=== PATIENT | male | born 1950 | race African-American/Black ===

== ENCOUNTER 2017-10-11 23:59 | Emergency (ER) | payer MEDICARE, OTHER ==
[2017-10-12 01:21] VITALS: BP 131/88; PULSE 76; TEMP 97.9; BMI 21.3
--- NOTE | 2017-10-12 01:30 | PDOC ---
History of Present Illness - General History Source: Patient Exam Limitations: No Limitations - History of Present Illness Initial Comments: 10/12/17 01:49 The patient is a 67 year old male with a significant PMH of HTN and hyperlipidemia who presents to the emergency department with generalized malaise , a dry cough, and nasal congestion beginning approximately 2 weeks ago. The patients daughter also reports that the patient has had a decreased appetite and intermittent vomiting over the past week, but notes he has been drinking plenty of fluids. The patient reports compliance with his medications. He denies sick contacts or recent travel. The patient denies chest pain, shortness of breath, headache, and dizziness. Denies fevers, chills, diarrhea, and constipation. Denies dysuria, frequency, urgency and hematuria. Allergies: NKA Past surgical history: None reported. Social history: No reported cigarette, alcohol, or drug use. PCP: Not on Staff. <Damion Best - Last Filed: 10/12/17 02:13> - General History Source: Patient <Sylvester Monte - Last Filed: 10/12/17 04:30> - General Chief Complaint: Nausea/Vomiting Stated Complaint: VOMITING, COUGHING,WEAKNESS Time Seen by Provider: 10/12/17 01:29 Past History <Damion Best - Last Filed: 10/12/17 02:13> - Past Medical History HTN: Yes Hypercholesterolemia: Yes - Surgical History Cardiac Surgery: Yes - Immunization History Immunization Up to Date: No - Suicide/Smoking/Psychosocial Hx Smoking History: Never smoked Have you smoked in the past 12 months: No Number of Cigarettes Smoked Daily: 5 Information on smoking cessation initiated: No Hx Alcohol Use: No Drug/Substance Use Hx: No Substance Use Type: Alcohol <Sylvester Monte - Last Filed: 10/12/17 04:30> - Past Medical History Allergies/Adverse Reactions: Allergies Allergy/AdvReac Type Severity Reaction Status Date / Time No Known Allergies Allergy Verified 10/12/17 01:21 Home Medications: Ambulatory Orders Aspirin Coated [Ecotrin -] 81 mg PO DAILY 11/14/13 Furosemide [Lasix -] 40 mg PO DAILY 11/14/13 Allopurinol [Zyloprim -] 100 mg PO DAILY 06/17/14 Carvedilol [Coreg -] 6.25 mg PO BID 06/17/14 Simvastatin [Zocor] 10 mg PO HS 06/17/14 Cyclobenzaprine HCl [Flexeril] 5 mg PO TID PRN #15 tablet 11/14/15 Naproxen [Naprosyn -] 500 mg PO BID PRN #21 tablet 11/14/15 Azithromycin [Zithromax -] 250 mg PO UTDICT #6 tab 10/12/17 Review of Systems - Review of Systems Able to Perform ROS?: Yes Comments:: 10/12/17 01:49 CONSTITUTIONAL: (+) Generalized malaise. Absent: fever, chills, diaphoresis, generalized weakness, loss of appetite HEENT: (+) Nasal congestion. Absent: throat pain, throat swelling, difficulty swallowing, mouth swelling, ear pain, eye pain, visual Changes CARDIOVASCULAR: Absent: chest pain, syncope, palpitations, irregular heart rate, lightheadedness , peripheral edema RESPIRATORY: (+) Dry cough. Absent: shortness of breath, dyspnea with exertion, orthopnea, wheezing, stridor , hemoptysis GASTROINTESTINAL: (+) Intermittent vomiting. Absent: abdominal pain, abdominal distension, diarrhea, constipation, melena, hematochezia GENITOURINARY: Absent: dysuria, frequency, urgency, hesitancy, hematuria, flank pain, genital pain MUSCULOSKELETAL: Absent: myalgia, arthralgia, joint swelling SKIN: Absent: rash, itching, pallor HEMATOLOGIC/IMMUNOLOGIC: Absent: easy bleeding, easy bruising, lymphadenopathy, frequent infections ENDOCRINE: Absent: unexplained weight gain, unexplained weight loss, heat intolerance, cold intolerance NEUROLOGIC: Absent: headache, focal weakness or paresthesias, dizziness, unsteady gait, seizure, mental status changes, bladder or bowel incontinence PSYCHIATRIC: Absent: anxiety, depression, suicidal or homicidal ideation, hallucinations. <Damion Best - Last Filed: 10/12/17 02:13> *Physical Exam - Vital Signs Last Vital Signs Temp Pulse Resp BP Pulse Ox 97.9 F 76 18 131/88 99 10/12/17 01:13 10/12/17 01:13 10/12/17 01:13 10/12/17 01:13 10/12/17 01:13 - Physical Exam Comments: 10/12/17 01:49 GENERAL: Well developed, well nourished. Awake and alert. No acute distress. HEENT: (+) Very dry oral mucosa. Normocephalic, atraumatic. PERRLA, EOMI. No conjunctival pallor. Sclera are non- icteric. Moist mucous membranes. Oropharynx is clear. NECK: Supple. Full ROM. No JVD. Carotid pulses 2+ and symmetric, without bruits. No thyromegaly. No lymphadenopathy. CARDIOVASCULAR: Regular rate and rhythm. No murmurs, rubs, or gallops. Distal pulses are 2+ and symmetric. PULMONARY: No evidence of respiratory distress. Lungs clear to auscultation bilaterally. No wheezing, rales or rhonchi. ABDOMINAL: Soft. Non-tender. Non-distended. No rebound or guarding. No organomegaly. Normoactive bowel sounds. MUSCULOSKELETAL Normal range of motion at all joints. No bony deformities or tenderness. No CVA tenderness. EXTREMITIES: No cyanosis. No clubbing. No edema. No calf tenderness. SKIN: Warm and dry. Normal capillary refill. No rashes. No jaundice. NEUROLOGICAL: Alert, awake, appropriate. Cranial nerves 2-12 intact. No deficits to light touch and temperature in face, upper extremities and lower extremities. No motor deficits in the in face, upper extremities and lower extremities. Normoreflexic in the upper and lower extremities. Normal speech. Toes are downgoing bilaterally. Gait is normal without ataxia. PSYCHIATRIC: Cooperative. Good eye contact. Appropriate mood and affect. <Damion Best - Last Filed: 10/12/17 02:13> - Vital Signs Last Vital Signs Temp Pulse Resp BP Pulse Ox 97.9 F 76 18 131/88 99 10/12/17 01:13 10/12/17 01:13 10/12/17 01:13 10/12/17 01:13 10/12/17 01:13 <Sylvester Monte - Last Filed: 10/12/17 04:30> Heart Score/ECG Review #1 10/12/17 02:14 Vent rate 73 bpm Normal sinus rhythm. Left axis deviation Low voltage QRS ST & T wave abnormality, consider anterolateral ischemia Prolonged QT Abnormal ECG When compared to ECG from 21-AUG-2017 14:33, New T wave inversions in the lateral leads. <Damion Best - Last Filed: 10/12/17 02:13> ED Treatment Course - LABORATORY CBC & Chemistry Diagram: 10/12/17 02:50 10/12/17 02:56 <Sylvester Monte - Last Filed: 10/12/17 04:30> Medical Decision Making - Medical Decision Making 10/12/17 04:29 Dr. Monte: The scribe's documentation has been prepared under my direction and personally reviewed by me in its entirery. I confirm that the note above accurately reflects all work, treatment, procedures, and medical decision making performed by me. <Sylvester Monte - Last Filed: 10/12/17 04:30> *DC/Admit/Observation/Transfer - Attestations Scribe Attestion: 10/12/17 01:49 Documentation prepared by Damion Best, acting as medical staffing coordinator for Sylvester Monte DO. <Damion Best - Last Filed: 10/12/17 02:13> - Discharge Dispostion Admit: No <Sylvester Monte - Last Filed: 10/12/17 04:30> Diagnosis at time of Disposition: Bronchitis - Discharge Dispostion Disposition: HOME Condition at time of disposition: Stable - Prescriptions Prescriptions: Azithromycin [Zithromax -] 250 mg PO UTDICT #6 tab - Referrals Referrals: Brandan Arreguin MD [Staff Physician] - - Patient Instructions Printed Discharge Instructions: DI for Acute Bronchitis Additional Instructions: Please follow up with your doctor as soon as possible. Avoid smoking as much as possible. Return if any problems - Post Discharge Activity Forms/Work/School Notes: Back to Work
[2017-10-12] MEDS ORDERED: SODIUM CHLORIDE 1,000 ML IV STA (01:40)
[2017-10-12 03:02] LABS: BASO % 0.3 % (0-2.0); EOS % 0.6 % (0-4.5); HEMOGLOBIN 14.3 GM/dL (11.7-16.9); LYMPH % 35.2 % (8-40); MCH 31.5 pg (25.7-33.7); MCHC 33.2 g/dl (32.0-35.9); MEAN CELL VOLUME 94.7 fl (80-96); MEAN PLT VOLUME 9.5 fl (7.5-11.1); MONO % 10.5 % (3.8-10.2); NEUT % 53.4 % (42.8-82.8); PLATELET COUNT 126 K/MM3 (134-434); RBC 4.54 M/mm3 (4.00-5.60); RDW 13.6 % (11.9-15.9); WHITE BLOOD COUNT 4.1 K/mm3 (4.0-10.0)
[2017-10-12 03:18] LABS: INR 0.95 (0.82-1.09); PROTHROMBIN TIME (PATIENT) 10.7 SEC (9.98-11.88)
[2017-10-12 03:26] LABS: ALBUMIN 3.7 g/dl (3.4-5.0); ANION GAP 10 (8-16); BLOOD UREA NITROGEN 14 mg/dL (7-18); CALCIUM 8.5 mg/dL (8.5-10.1); CHLORIDE 99 mmol/L (98-107); CO2 33 mmol/L (21-32); CREATININE 0.9 mg/dL (0.7-1.3); GLUCOSE,RANDOM 86 mg/dL (74-106); MAGNESIUM 1.4 mg/dL (1.8-2.4); POTASSIUM 3.7 mmol/L (3.5-5.1); SGOT/AST 309 U/L (15-37); SGPT/ALT 263 U/L (12-78); SODIUM 142 mmol/L (136-145)
[2017-10-12 03:28] LABS: ALK PHOS 110 U/L (45-117); BILIRUBIN,TOTAL 0.9 mg/dL (0.2-1.0); TOT PROT 7.2 g/dl (6.4-8.2)
[2017-10-12 03:29] LABS: LIPASE 202 U/L (73-393)
[2017-10-12] MEDS ORDERED: AZITHROMYCIN 250 MG TABLET PO STA (04:26)
[2017-10-12] MEDS ORDERED: AZITHROMYCIN 250 MG TABLET ONE (04:30)
--- NOTE | 2017-10-12 07:56 | EKG ---
Test Reason : Blood Pressure : / mmHG Vent. Rate : 073 BPM Atrial Rate : 073 BPM P-R Int : 158 ms QRS Dur : 086 ms QT Int : 424 ms P-R-T Axes : 000 -37 129 degrees QTc Int : 467 ms NORMAL SINUS RHYTHM LEFT AXIS DEVIATION LOW VOLTAGE QRS PROLONGED QT ABNORMAL ECG WHEN COMPARED WITH ECG OF 17-JUN-2014 22:27, ST NOW DEPRESSED IN ANTERIOR LEADS NONSPECIFIC T WAVE ABNORMALITY NO LONGER EVIDENT IN INFERIOR LEADS T WAVE INVERSION NOW EVIDENT IN ANTERIOR LEADS Confirmed by RUPERT LOPES, RASHAD ([id number]) on 10/12/2017 7:56:24 AM Referred By: Confirmed By:RASHAD EMERY MD
== END 2017-10-12 04:45 | disposition home or self-care (01) ==
LOC: JER 23:59
PROC: 3E0337Z Introduction of Electrolytic and Water Balance Substance into Peripheral Vein, Percutaneous Approach (ICD-10-PCS; principal; 2017-10-11)
DX: J20.9 Acute bronchitis, unspecified (principal); I10 Essential (primary) hypertension; E78.00 Pure hypercholesterolemia, unspecified
CPT/HCPCS: 36415; 71046-TC; 80053; 82009; 82550; 82553; 83690; 83735; 84484; 85025; 85610; 87804; 93005; 93010; 96360; 99283-25

== ENCOUNTER 2017-10-13 18:42 | Inpatient (IN) | payer OTHER ==
--- NOTE | 2017-10-13 19:45 | PDOC ---
Rapid Medical Evaluation Chief Complaint: Weakness Time Seen by Provider: 10/13/17 19:36 Medical Evaluation: Allergies Allergy/AdvReac Type Severity Reaction Status Date / Time No Known Allergies Allergy Verified 10/13/17 19:36 10/13/17 19:40 67 year old male c/o of weakness, diffculty walking, vomiting and diarrhea since discharge as per daughter. patient unsteady of gait/ pateint seen in the ED yesterdat diagnosed with bronchitis currently on azithromycin. + chills/ diaphoresis. PE: patient alert breath sounds clear/ Plan: cbc, cmp, cardiac enzymes, blood cultures, lactic acid, EKG, patient to the ER for the further management of care.
[2017-10-13 20:27] LABS: BASO % 0.3 % (0-2.0); HEMATOCRIT 43.4 % (35.4-49); HEMOGLOBIN 14.5 GM/dL (11.7-16.9); LYMPH % 19.2 % (8-40); MCH 31.6 pg (25.7-33.7); MCHC 33.5 g/dl (32.0-35.9); MEAN CELL VOLUME 94.3 fl (80-96); MEAN PLT VOLUME 9.7 fl (7.5-11.1); MONO % 7.2 % (3.8-10.2); NEUT % 73.3 % (42.8-82.8); PLATELET COUNT 145 K/MM3 (134-434); RDW 13.6 % (11.9-15.9); WHITE BLOOD COUNT 5.2 K/mm3 (4.0-10.0)
[2017-10-13 20:33] LABS: VENOUS PC02 40.5 mmHg (38-52); VENOUS PH 7.41 (7.32-7.42); VENOUS PO2 39.3 mmHg (28-48)
[2017-10-13 20:41] LABS: INR 0.99 (0.82-1.09); PROTHROMBIN TIME (PATIENT) 11.2 SEC (9.98-11.88)
[2017-10-13 20:44] LABS: ACTIVATED PTT 33.3 SECONDS (26.9-34.4)
[2017-10-13] MEDS ORDERED: SODIUM CHLORIDE 1,000 ML IV STA (20:45)
--- NOTE | 2017-10-13 20:48 | PDOC ---
History of Present Illness - General Chief Complaint: Weakness Stated Complaint: WEAKNESS Time Seen by Provider: 10/13/17 19:36 - History of Present Illness Initial Comments: 10/13/17 20:43 67 yo M with h/o CAD s/p CABG, CHF, HTN, HLD, who presents with generalized weakness. Patient and pt. 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 Patient recently seen in ED yesterday evening, for weakness and diagnosed with COPD exacerbation. ED course was notable for EKG with anterolateral T wave inversion. 6 episodes of non biliary, non bloody emesis and 3 episodes of watery stool today attributed to azithromycin use. Denies BPR or dark stools Also endorses chills and decreased appetite, despite normal PO fluid and food intake. Daughter reports that pt. 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 Denies fever, CP, back pain , SOB, Guerra, Abdominal pain, diarrhea, constipation, urinary complaints, sensory disturbances, lightheadedness, LOC. Recently recovered from URI type illness x 2 weeks. Tobacco use for past 50 years 1/2 ppd. Daily alcohol/gin use.last alcoholic beverage yesterday evening. Denies h/o CVA/TIA, or WI. H/o valve replacement. Lasix 40 mg QD, and ASA 81 mg QD. No sick contacts or recent travels. Past History - Past Medical History Allergies/Adverse Reactions: Allergies Allergy/AdvReac Type Severity Reaction Status Date / Time No Known Allergies Allergy Verified 10/13/17 19:36 Home Medications: Ambulatory Orders Aspirin Coated [Ecotrin -] 81 mg PO DAILY 11/14/13 Furosemide [Lasix -] 40 mg PO DAILY 11/14/13 Allopurinol [Zyloprim -] 100 mg PO DAILY 06/17/14 Carvedilol [Coreg -] 6.25 mg PO BID 06/17/14 Simvastatin [Zocor] 10 mg PO HS 06/17/14 Cyclobenzaprine HCl [Flexeril] 5 mg PO TID PRN #15 tablet 11/14/15 Naproxen [Naprosyn -] 500 mg PO BID PRN #21 tablet 11/14/15 Azithromycin [Zithromax -] 250 mg PO UTDICT #6 tab 10/12/17 COPD: No HTN: Yes Hypercholesterolemia: Yes - Surgical History Cardiac Surgery: Yes - Immunization History Immunization Up to Date: No - Suicide/Smoking/Psychosocial Hx Smoking History: Never smoked Have you smoked in the past 12 months: No Number of Cigarettes Smoked Daily: 10 Information on smoking cessation initiated: Yes Hx Alcohol Use: No Drug/Substance Use Hx: No Substance Use Type: Alcohol Review of Systems - Review of Systems Comments:: 10/13/17 20:49 GENERAL/CONSTITUTIONAL:+ Weakness. No fever or chills. HEAD, EYES, EARS, NOSE AND THROAT: No change in vision. No ear pain or discharge. No sore throat.- CARDIOVASCULAR: No chest pain or shortness of breath RESPIRATORY: No cough, wheezing, or hemoptysis. GASTROINTESTINAL: No nausea, vomiting, diarrhea or constipation. GENITOURINARY: No dysuria, frequency, or change in urination. MUSCULOSKELETAL: No joint or muscle swelling or pain. No neck or back pain. SKIN: No rash NEUROLOGIC: No headache, vertigo, loss of consciousness, or change in strength/ sensation. ENDOCRINE: No increased thirst. No abnormal weight change HEMATOLOGIC/LYMPHATIC: No anemia, easy bleeding, or history of blood clots. ALLERGIC/IMMUNOLOGIC: No hives or skin allergy. *Physical Exam - Vital Signs Last Vital Signs Temp Pulse Resp BP Pulse Ox 98.3 F 69 18 130/73 100 10/13/17 19:38 10/13/17 19:38 10/13/17 19:38 10/13/17 19:38 10/13/17 19:38 - Physical Exam Comments: 10/13/17 20:48 GENERAL: Awake, alert, and fully oriented, in no acute distress HEAD: No signs of trauma, normocephalic, atraumatic EYES: Proptosis and scleral icterus. PERRLA, EOMI, sclera anicteric, conjunctiva clear ENT: Auricles normal inspection, hearing grossly normal, nares patent, oropharynx clear without exudates. Moist mucosa NECK: Normal ROM, supple, no lymphadenopathy, JVD, or masses LUNGS: No distress, speaks full sentences, clear to auscultation bilaterally HEART: Regular rate and rhythm, normal S1 and S2, no murmurs, rubs or gallops, peripheral pulses normal and equal bilaterally. ABDOMEN: Soft, nontender, normoactive bowel sounds. No guarding, no rebound. No masses EXTREMITIES : Normal inspection, Normal range of motion, no edema. No clubbing or cyanosis. NEUROLOGICAL: Baseline extremity tremor improved with movement. Gait is unstseady and slightly ataxic with transfer. Cranial nerves II through XII grossly intact. Normal speech, normal gait, no focal sensorimotor deficits S Heart Score/ECG Review - History History: Moderately suspicious - Electrocardiogram EKG: Non specific repolarization disturbance - Age Age: >/= 65 - Risk Factors Risk Factors Heart Score: Yes Hx Hypercholesterolemia, Yes Hx Hypertension, Yes Smoking History, Yes Positive family hx of cardiac disease Based on the list above the patient has:: >/=3 risk factors or Hx atherosclerotic disease - Troponin Troponin: </= normal limit - Score Heart Score - Total: 6 - ECG Intrepretation Rhythm: Regular Rhythm ED Treatment Course - LABORATORY CBC & Chemistry Diagram: 10/13/17 20:09 10/13/17 20:09 - ADDITIONAL ORDERS Additional order review: Laboratory Results 10/13/17 20:26 VBG pH 7.41 POC VBG pCO2 40.5 POC VBG pO2 39.3 Mixed VBG HCO3 25.0 10/13/17 20:09 RBC 4.60 MCV 94.3 MCHC 33.5 RDW 13.6 MPV 9.7 Neutrophils % 73.3 D Lymphocytes % 19.2 D Monocytes % 7.2 Eosinophils % 0.0 D Basophils % 0.3 Medical Decision Making - Medical Decision Making 10/13/17 21:14 67 yo M with h/o COPD ( no home O2), CAD s/p CABG, CHF, HTN, HLD, and chronic alcoholism who presents with generalized weakness x 1 week with decreased ambulation and 24 hours non biliary, non bloody emesis and non bloody, watery stools. Patient recently seen in ED yesterday evening, for weakness and diagnosed with COPD exacerbation. Sent out with azithromycin. Endorses chills and decreased appetite. Denies fever, CP, back pain, SOB, Guerra, Abdominal pain, diarrhea, constipation, urinary complaints, sensory disturbances, lightheadedness, LOC. Recently recovered from URI type illness x 2 weeks. Tobacco use for past 50 years 1/2 ppd. Daily alcohol/gin use. Last alcoholic beverage yesterday evening. Denies h/o CVA/TIA, or WI. H/o valve replacement. No sick contacts or recent travels. Physical exam notable for baseline tremor improved with movement. + scleral icterus. Remainder of physical exam unremarkable. Pt. non hypoxic and HDS. Will evaluate pt. in ED for possible causes of weakness including ACS/WI, CHF exaccerbation electrolyte derangement, hypothyroidism, dehydration, or underlying infection ( UTI vs PNA). Low suspicion of CVA/TIA given low pretest probabilty NIHSS score of 0 and absent neuro deficits. Will consider posterior circulation occlusion given age and risk factors. Will also consider acute alcohol withdrawal in setting of chronic EtOH use. ED Course: CBC, CMP, BNP, Cardiac profile, UA, TSH CXR NS, Zofran EKG: NSR with TWI leads V2-V6. Absent ALESSANDRA, or STD. Prolonged QTc 526 Trop Neg Heart score 5 with 13 % risk MACE 10/13/17 21:49 Lactic acid : 3.1 10/13/17 22:42 CXR: No acute pathology. 10/13/17 23:50 UA: trace ketones. 10/14/17 00:54 CT Head unremarkable. 10/14/17 01:00 BNP: 2717 10/14/17 01:00 10/14/17 04:12 CT AP: Distal colon suspicious for colitis. Flagyl, Levaquin 10/14/17 04:26 Lactic acid 2.1 10/14/17 05:34 Patient admitted med/surg obs *DC/Admit/Observation/Transfer Diagnosis at time of Disposition: Generalized weakness - Discharge Dispostion Disposition: HOME - Referrals Referrals: Roge Cutler [Primary Care Provider] - - Patient Instructions Printed Discharge Instructions: DI for Muscle Weakness Additional Instructions: Please return to the emergency department with any new or worsening symptoms or concerns.Please follow up with your primary care physician within one week. - Post Discharge Activity - Attestations Physician Attestion: 10/14/17 00:55 I attest to the information provided in this note.
--- NOTE | 2017-10-13 20:58 | PDOC ---
Attending Attestation - HPI HPI: 10/13/17 21:05 The patient is a 67 year old male with a significant PMH of CAD s/p CABG, CHF, HTN, and hyperlipidemia who presents to the emergency department with 1 week of generalized weakness and 1 day of multiple episodes of vomiting and watery stool. The patients daughter notes that the patient has been unable to ambulate over the past week secondary to weakness. The patient was seen in the ED on 10/12 for evaluation of generalized malaise and dry cough and was diagnosed with a COPD exacerbation. Allergies: NKA PCP: Dr. Cutler <Damion Best - Last Filed: 10/13/17 21:05> - Resident Resident Name: Silverio Marrero - ED Attending Attestation I have performed the following: I have examined & evaluated the patient, The case was reviewed & discussed with the resident, I agree w/resident's findings & plan, Exceptions are as noted - Physicial Exam PE: 10/13/17 21:04 Physical Exam General Appearance: Yes: Appropriately Dressed. No: Apparent Distress, Intoxicated HEENT: positive: EOMI, RUTHIE, Normal ENT Inspection, Normal Voice, TMs Normal, Pharynx Normal. negative: Pale Conjunctivae, Photophobia, Scleral Icterus (R), Scleral Icterus (L) Neck: positive: Trachea midline, Normal Thyroid, Supple. negative: Tender, Rigid, Carotid bruit, Stridor, Lymphadenopathy (R), Lymphadenopathy (L), Thyromegaly Respiratory/Chest: positive: Lungs Clear, Normal Breath Sounds. negative: Chest Tender, Respiratory Distress, Accessory Muscle Use, Labored Respiration, RES, Crackles, Rales, Rhonchi, Stridor, Wheezing, Dullness Cardiovascular: positive: Regular Rhythm, Regular Rate, S1, S2. negative: Edema , JVD, Murmur, Bradycardia, Tachycardia Vascular Pulses: Dorsalis-Pedis (R): 2+, Doralis-Pedis (L): 2+ Gastrointestinal/Abdominal: positive: Normal Bowel Sounds, Flat, Soft. negative : Tender, Organomegaly, Pulsatile Mass, Increased Bowel Sounds, Decreased BS, Distended, Guarding, Rebound, Hernia, Hepatomegaly, Spleenomegaly Lymphatic: negative: Adenopathy, Tenderness Musculoskeletal: positive: Normal Inspection. negative: CVA Tenderness, Decreased Range of Motion Extremity: positive: Normal Capillary Refill, Normal Inspection, Normal Range of Motion, Pelvis Stable. negative: Tender, Pedal Edema, Swelling, Erythema Integumentary: positive: Normal Color, Dry, Warm. 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 negative: EOM Palsy, Facial Droop, Sensory Deficit - Medical Decision Making 10/14/17 04:09 Pt will be admitted to [facility] for colitis. Pt also has elevation of his BNP 2700's, however denies any SOB or chest pain at this time. <Sylvester Monte - Last Filed: 10/14/17 04:11>
[2017-10-13] MEDS ORDERED: chlordiazePOXIDE HCL 25 MG CAPSULE PO ONE (21:10)
[2017-10-13 21:21] LABS: ALBUMIN 4.1 g/dl (3.4-5.0); ANION GAP 13 (8-16); BLOOD UREA NITROGEN 10 mg/dL (7-18); CALCIUM 8.4 mg/dL (8.5-10.1); CHLORIDE 94 mmol/L (98-107); CO2 27 mmol/L (21-32); GLUCOSE,RANDOM 102 mg/dL (74-106); SGOT/AST 272 U/L (15-37); SGPT/ALT 219 U/L (12-78); SODIUM 134 mmol/L (136-145)
[2017-10-13 21:25] LABS: ALK PHOS 152 U/L (45-117); BILIRUBIN,TOTAL 2.4 mg/dL (0.2-1.0); TOT PROT 7.7 g/dl (6.4-8.2)
[2017-10-13] MEDS ORDERED: ONDANSETRON 4 MG/2 ML VIAL IVPB ONE (22:44)
[2017-10-13 22:47] LABS: URINE APPEARANCE CLEAR; URINE BILIRUBIN NEGATIVE (NEGATIVE); URINE COLOR LTYELLOW; URINE GLUCOSE (UA) NEGATIVE (NEGATIVE); URINE KETONE TRACE (NEGATIVE); URINE LEUK ESTERASE NEGATIVE (NEGATIVE); URINE NITRITE NEGATIVE (NEGATIVE)
[2017-10-13 23:03] LABS: URINE PROTEIN 1+ (NEGATIVE)
[2017-10-13 23:04] LABS: EPI CELLS RARE /HPF (FEW); URINE BACTERIA RARE /hpf (NONE SEEN); URINE HYALINE CAST 2 /lpf; URINE MUCUS RARE
[2017-10-13] MEDS ORDERED: chlordiazePOXIDE HCL 25 MG CAPSULE ONE (23:07)
[2017-10-13] MEDS ORDERED: ONDANSETRON 4 MG/2 ML VIAL ONE (23:08)
[2017-10-13 23:33] LABS: N-TERMINAL BNP 2717.94 pg/ml (5-125)
[2017-10-14] MEDS ORDERED: METOCLOPRAMIDE HCL INJECTION 10 MG/2 ML VIAL ONE (01:10)
[2017-10-14] MEDS ORDERED: METOCLOPRAMIDE HCL INJECTION 10 MG/2 ML VIAL IVPUSH ONE (01:10)
[2017-10-14] MEDS ORDERED: SODIUM CHLORIDE 1,000 ML IV STA (01:20)
--- NOTE | 2017-10-14 06:58 | HP ---
CHIEF COMPLAINT: generalized weakness, emesis, diarrhea PCP: Dr. Roge Cutler HISTORY OF PRESENT ILLNESS: 67 y/o M with PMH CAD s/p CABG, CHF, HTN, HLD, recent admission 10/12 for COPD exacerbation, Bronchitis (tx with Azithromycin) who presents to the ED with generalized weakness, and multiple episodes of emesis and loose BM's for the past day. As per patient, yesterday morning, pt felt very weak; as if he could not walk. During this time, he had ten episodes of NBNB emesis and 4-5 episodes of loose BM's without blood. Pt states that he took Azithromycin at 9AM yesterday morning, and subsequently developed emesis at 2pm and diarrhea at 3pm. Pt states that he has never been told he is allergic to any abx. Denies MARQUEZ , fever, chills, night sweats, weight loss, or any changes in appetite. ER course was notable for: (1) lactic acid 3.2, trended down to 2.1 (2) Librium 25mg PO x 1 (3) Flagyl and levaquin (4) metoclopramide 10mg IVP (5) zofran 4mg IVPB x 1 (6) NS 1000 ml x 2 Recent Travel: none PAST MEDICAL HISTORY: CAD s/p CABG, CHF, HTN, HLD, recent admission 10/12 for COPD exacerbation, Bronchitis (tx with Azithromycin) PAST SURGICAL HISTORY: CABG (2002) Social History: has worked for [employer]" for 43 yrs Smokin-10 cigarettes/day ~ 40 yrs Alcohol: drinks 2.5 shots of liquor every day after work Drugs: denies Family History: father- passed from stroke, mother- passed from ID Allergies No Known Allergies Allergy (Verified 10/13/17 19:36) HOME MEDICATIONS: Home Medications Medication Instructions Recorded Aspirin Coated [Ecotrin -] 81 mg PO DAILY 11/14/13 Furosemide [Lasix -] 40 mg PO DAILY 11/14/13 Allopurinol [Zyloprim -] 100 mg PO DAILY 06/17/14 Carvedilol [Coreg -] 6.25 mg PO BID 06/17/14 Simvastatin [Zocor] 10 mg PO HS 06/17/14 Cyclobenzaprine HCl [Flexeril] 5 mg PO TID PRN #15 tablet 11/14/15 Naproxen [Naprosyn -] 500 mg PO BID PRN #21 tablet 11/14/15 Azithromycin [Zithromax -] 250 mg PO UTDICT #6 tab 10/12/17 REVIEW OF SYSTEMS CONSTITUTIONAL: Absent: fever, chills, diaphoresis, generalized weakness, malaise, loss of appetite, weight change HEENT: Absent: rhinorrhea, nasal congestion, throat pain, throat swelling, difficulty swallowing, mouth swelling, ear pain, eye pain, visual changes CARDIOVASCULAR: Absent: chest pain, syncope, palpitations, irregular heart rate, lightheadedness , peripheral edema RESPIRATORY: Absent: cough, shortness of breath, dyspnea with exertion, orthopnea, wheezing, stridor, hemoptysis GASTROINTESTINAL:+nausea, vomiting, diarrhea Absent: abdominal pain, abdominal distension, nausea, vomiting, diarrhea, constipation, melena, hematochezia GENITOURINARY: Absent: dysuria, frequency, urgency, hesitancy, hematuria, flank pain, genital pain MUSCULOSKELETAL: Absent: myalgia, arthralgia, joint swelling, back pain, neck pain SKIN: Absent: rash, itching, pallor HEMATOLOGIC/IMMUNOLOGIC: Absent: easy bleeding, easy bruising, lymphadenopathy, frequent infections ENDOCRINE: Absent: unexplained weight gain, unexplained weight loss, heat intolerance, cold intolerance NEUROLOGIC: Absent: headache, focal weakness or paresthesias, dizziness, unsteady gait, seizure, mental status changes, bladder or bowel incontinence PSYCHIATRIC: Absent: anxiety, depression, suicidal or homicidal ideation, hallucinations. PHYSICAL EXAMINATION Vital Signs - 24 hr 10/13/17 19:38 Temperature 98.3 F Pulse Rate 69 Respiratory 18 Rate Blood Pressure 130/73 O2 Sat by Pulse 100 Oximetry (%) GENERAL: Awake, alert, and fully oriented, in no acute distress. Resting comfortably. HEAD: Normal with no signs of trauma. EYES: Pupils equal, round and reactive to light, extraocular movements intact, sclera anicteric, conjunctiva clear. EARS, NOSE, THROAT: Ears normal, nares patent, oropharynx clear without exudates. Moist mucous membranes. NECK: Normal range of motion, supple without lymphadenopathy LUNGS: Breath sounds equal, clear to auscultation bilaterally. No wheezes, and no crackles. No accessory muscle use. HEART: Regular rate and rhythm, normal S1 and S2 without murmur, rub or gallop. ABDOMEN: Soft, nontender, distended, hyperactive bowel sounds, no guarding, no rebound. LOWER EXTREMITIES: 2+ posterior tibial pulses, warm, well-perfused. No calf tenderness. No peripheral edema. NEUROLOGICAL: Cranial nerves II-XII intact. Laboratory Results 10/13/17 10/13/17 10/13/17 10:40 20:09 20:09 WBC 5.2 Hgb 14.5 Hct 43.4 Plt Count 145 Sodium 134 L Potassium 4.0 Chloride 94 L BUN 10 D Creatinine 1.0 Lactic Acid Calcium 8.4 L Total Bilirubin 2.4 H D AST 272 H ALT 219 H Alkaline Phosphatase 152 H D B-Natriuretic Peptide Urine pH 9.0 H D Urine Protein 1+ H Urine Ketones Trace H 10/13/17 10/13/17 10/14/17 20:09 23:00 03:15 WBC Hgb Hct Plt Count Sodium Potassium Chloride BUN Creatinine Lactic Acid 3.2 H* 2.1 H Calcium Total Bilirubin AST ALT Alkaline Phosphatase B-Natriuretic Peptide 2717.94 H Urine pH Urine Protein Urine Ketones Micro -Ucx: pending -Blood cx: pending Imaging -CXR: cardiomegaly -Head CT: WNL -Abd/pelvis CT: distal colon, colitis ASSESSMENT/PLAN: 67 y/o M with PMH CAD s/p CABG, CHF, HTN, HLD, recent admission 10/12 for COPD exacerbation, Bronchitis (tx with Azithromycin) who presents to the ED with generalized weakness, and multiple episodes of emesis and loose BM's for the past day. Pt being admitted to observation for acute gastroenteritis. #Acute gastroenteritis -supportive care, without sepsis. afebrile, without white count -lactic acid trending down (3.2, 2.1) -manage electrolytes -IVF -NPO -F/u blood, urine cx to r/o any infectious etiology -PT consult d/t weakness though most likely 2/2 dehydration #CAD s/p CABG -continue aspirin 81 mg qd #CHF -continue lasix 40mg qd #HTN- currently controlled -Continue coreg 6.25 mg PO BID #HLD -continue Simvastatin 10mg PO qd #PPX DVT: SCD's #F/E/N IV NS 100 cc/hr Monitor electrolytes NPO for bowel rest #Dispo observation Visit type - Emergency Visit Emergency Visit: Yes ED Registration Date: 10/14/17 Care time: The patient presented to the Emergency Department on the above date and was hospitalized for further evaluation of their emergent condition. - New Patient This patient is new to me today: Yes Date on this admission: 10/14/17 - Critical Care Critical Care patient: No
[2017-10-14] MEDS ORDERED: CYCLOBENZAPRINE HCL 5 MG TABLET PO PRN (07:23)
[2017-10-14 08:50] LABS: BASO % 0.2 % (0-2.0); EOS % 0.2 % (0-4.5); HEMATOCRIT 37.6 % (35.4-49); HEMOGLOBIN 12.3 GM/dL (11.7-16.9); LYMPH % 25.7 % (8-40); MCH 31.3 pg (25.7-33.7); MCHC 32.6 g/dl (32.0-35.9); MEAN CELL VOLUME 96.1 fl (80-96); MEAN PLT VOLUME 9.7 fl (7.5-11.1); MONO % 14.6 % (3.8-10.2); NEUT % 59.3 % (42.8-82.8); PLATELET COUNT 106 K/MM3 (134-434); RBC 3.91 M/mm3 (4.00-5.60); RDW 13.5 % (11.9-15.9); WHITE BLOOD COUNT 4.3 K/mm3 (4.0-10.0)
[2017-10-14] MEDS ORDERED: CYCLOBENZAPRINE HCL 10 MG TABLET (FP) PO PRN (08:54)
--- NOTE | 2017-10-14 09:05 | PN ---
Teaching Attending Note Name of Resident: Yodit Mcintyre ATTENDING PHYSICIAN STATEMENT I saw and evaluated the patient. I reviewed the resident's note and discussed the case with the resident. I agree with the resident's findings and plan as documented. SUBJECTIVE: 67 y/o Male presented to ED c/o weaknes s and inability to ambulate after 2 days of diarrhea and yesterday multiple episodes of vomiting. Patient attributes this to recent treatment with antibiotics. OBJECTIVE: GEN: Alert and frail HEENT: temporal wasting, NC, At, PERRLA, arcus senilis, MMM CVS: RRR, S1, S2 Lungs: CTA Abd: soft, NT, ND, BS hyperactive Ext: 4+ strength, no edema CBCD WBC 5.2 K/mm3 (4.0-10.0) 10/13/17 20:09 RBC 4.60 M/mm3 (4.00-5.60) 10/13/17 20:09 Hgb 14.5 GM/dL (11.7-16.9) 10/13/17 20:09 Hct 43.4 % (35.4-49) 10/13/17 20:09 MCV 94.3 fl (80-96) 10/13/17 20:09 MCHC 33.5 g/dl (32.0-35.9) 10/13/17 20:09 RDW 13.6 % (11.9-15.9) 10/13/17 20:09 Plt Count 145 K/MM3 (134-434) 10/13/17 20:09 MPV 9.7 fl (7.5-11.1) 10/13/17 20:09 CMP Sodium 134 mmol/L (136-145) L 10/13/17 20:09 Potassium 4.0 mmol/L (3.5-5.1) 10/13/17 20:09 Chloride 94 mmol/L (98-107) L 10/13/17 20:09 Carbon Dioxide 27 mmol/L (21-32) 10/13/17 20: Anion Gap 13 (8-16) 10/13/17 20:09 BUN 10 mg/dL (7-18) D 10/13/17 20: Creatinine 1.0 mg/dL (0.7-1.3) 10/13/17 20:09 Creat Clearance w eGFR > 60 (>60) 10/13/17 20:09 Calcium 8.4 mg/dL (8.5-10.1) L 10/13/17 20:09 Total Bilirubin 2.4 mg/dL (0.2-1.0) H D 10/13/17 20:09 AST 272 U/L (15-37) H 10/13/17 20:09 ALT 219 U/L (12-78) H 10/13/17 20:09 Alkaline Phosphatase 152 U/L (45-117) H D 10/13/17 20:09 Total Protein 7.7 g/dl (6.4-8.2) 10/13/17 20:09 Albumin 4.1 g/dl (3.4-5.0) 10/13/17 20:09 ASSESSMENT AND PLAN: Admit for Acute gastroenteritis supportive care and refer for colonoscopy as outpatient. ED impression of colitis and flagyl and cipro given but clinical presentation appears to be more AGE. FTT/ malnutrition nutrition consult. PT consult and SW for discharge planning. DVt prophylaxis.
[2017-10-14 09:25] LABS: ANION GAP 11 (8-16); BLOOD UREA NITROGEN 11 mg/dL (7-18); CALCIUM 7.1 mg/dL (8.5-10.1); CHLORIDE 99 mmol/L (98-107); CO2 27 mmol/L (21-32); GLUCOSE,RANDOM 67 mg/dL (74-106); PHOSPHOROUS 1.7 mg/dL (2.5-4.9); POTASSIUM 3.6 mmol/L (3.5-5.1); SODIUM 137 mmol/L (136-145)
[2017-10-14 09:30] LABS: MAGNESIUM 0.8 mg/dL (1.8-2.4)
--- NOTE | 2017-10-14 09:45 | EKG ---
Test Reason : Blood Pressure : / mmHG Vent. Rate : 067 BPM Atrial Rate : 067 BPM P-R Int : 146 ms QRS Dur : 082 ms QT Int : 498 ms P-R-T Axes : 000 002 144 degrees QTc Int : 526 ms NORMAL SINUS RHYTHM PROLONGED QT ABNORMAL ECG WHEN COMPARED WITH ECG OF 12-OCT-2017 01:45, NO SIGNIFICANT CHANGE WAS FOUND Confirmed by BJ DUQUE MD ([id number]) on 10/14/2017 9:45:09 AM Referred By: Confirmed By:BJ DUQUE MD
[2017-10-14] MEDS: SODIUM CHLORIDE 1,000 ML IV SCH (09:59)
[2017-10-14] MEDS: ALLOPURINOL 100 MG TABLET (FP) PO SCH (10:38)
[2017-10-14] MEDS: FUROSEMIDE 40 MG TABLET (FP) PO SCH (10:38)
[2017-10-14] MEDS: CARVEDILOL 6.25 MG TABLET (FP) PO SCH ×2 (10:38→23:54)
[2017-10-14] MEDS: ASPIRIN COATED 81 MG TABLET.EC PO SCH (10:38)
[2017-10-14] MEDS ORDERED: MAGNESIUM SULF 50% (8.12 MEQ/2 ML-1 GM VIAL) IVPB ONE ×3 (11:59→21:45)
[2017-10-14] MEDS ORDERED: NAPH,MB-DB/K PH,MBDB POWDER PACKET PO ONE (12:15)
[2017-10-14] MEDS ORDERED: MAGNESIUM SULFATE IN WATER 2 GM/50 ML IVPB IVPB ONE (12:30)
[2017-10-14] MEDS ORDERED: ATORVASTATIN CA 10 MG TABLET (FP) PO SCH (22:00)
[2017-10-15 01:03] VITALS: BMI 19.5
[2017-10-15] MEDS: SODIUM CHLORIDE 1,000 ML IV SCH ×2 (01:18→09:27)
[2017-10-15 07:35] LABS: HEMATOCRIT 36.4 % (35.4-49); MCH 31.7 pg (25.7-33.7); MCHC 33.1 g/dl (32.0-35.9); PLATELET COUNT 96 K/MM3 (134-434); RDW 13.6 % (11.9-15.9); WHITE BLOOD COUNT 4.1 K/mm3 (4.0-10.0)
[2017-10-15 08:31] LABS: CHLORIDE 97 mmol/L (98-107); POTASSIUM 3.1 mmol/L (3.5-5.1); SODIUM 134 mmol/L (136-145)
[2017-10-15 08:38] LABS: ALBUMIN 3.1 g/dl (3.4-5.0); ALK PHOS 105 U/L (45-117); ANION GAP 12 (8-16); BILIRUBIN,TOTAL 1.8 mg/dL (0.2-1.0); BLOOD UREA NITROGEN 7 mg/dL (7-18); CO2 25 mmol/L (21-32); CREATININE 0.8 mg/dL (0.7-1.3); GLUCOSE,RANDOM 58 mg/dL (74-106); MAGNESIUM 1.4 mg/dL (1.8-2.4); PHOSPHOROUS 2.3 mg/dL (2.5-4.9); SGOT/AST 82 U/L (15-37); SGPT/ALT 108 U/L (12-78); TOT PROT 5.8 g/dl (6.4-8.2)
[2017-10-15] MEDS: CARVEDILOL 6.25 MG TABLET (FP) PO SCH ×2 (09:27→22:58)
[2017-10-15] MEDS: FUROSEMIDE 40 MG TABLET (FP) PO SCH (09:27)
[2017-10-15] MEDS: ALLOPURINOL 100 MG TABLET (FP) PO SCH (09:28)
[2017-10-15] MEDS: ASPIRIN COATED 81 MG TABLET.EC PO SCH (09:28)
[2017-10-15] MEDS ORDERED: MAGNESIUM SULF 50% (8.12 MEQ/2 ML-1 GM VIAL) IVPB ONE (10:51)
[2017-10-15] MEDS ORDERED: METOCLOPRAMIDE HCL INJECTION 10 MG/2 ML VIAL IVPB ONE (10:53)
--- NOTE | 2017-10-15 11:00 | PN ---
Progress Note (short form) - Note Progress Note: Subjective: The patient was seen and examined at the bedside, he reports feeling better today and denies nausea or vomiting. Then received call from RN that the patient had two episodes of bilious vomiting. Current Medications Generic Name Dose Route Start Last Admin Trade Name Francis PRN Reason Stop Dose Admin Allopurinol 100 mg 10/14/17 10:00 10/15/17 09:28 Zyloprim - PO 100 mg DAILY ELLIE Administration Aspirin 81 mg 10/14/17 10:00 10/15/17 09:28 Ecotrin - PO 81 mg DAILY ELLIE Administration Atorvastatin Calcium 10 mg 10/14/17 22:00 10/14/17 23:52 Lipitor - PO 10 mg HS ELLIE Administration Calcium Carbonate 650 mg 10/15/17 12:15 Calcium Carbonate - PO 10/15/17 12:16 ONCE ONE Calcium Carbonate 650 mg 10/15/17 11:00 Calcium Carbonate - PO BID ELLIE Carvedilol 6.25 mg 10/14/17 10:00 10/15/17 09:27 Coreg - PO 6.25 mg BID ELLIE Administration Cyclobenzaprine HCl 5 mg 10/14/17 08:54 10/14/17 10:38 Flexeril - PO 5 mg TID PRN Administration MUSCLE SPASMS Furosemide 40 mg 10/14/17 10:00 10/15/17 09:27 Lasix - PO 40 mg DAILY ELLIE Administration Sodium Chloride 1,000 mls @ 100 mls/hr 10/14/17 07:00 10/15/17 09:27 Normal Saline - IV Not Given ASDIR ELLIE Magnesium Sulfate 2 gm 10/15/17 10:51 Magnesium Sulfate IVPB 10/15/17 10:52 ONCE ONE Metoclopramide HCl 10 mg 10/15/17 10:53 Reglan Injection - IVPB 10/15/17 10:54 ONCE ONE Objective: Vital Signs Period Temp Pulse Resp BP Sys/Reyes Pulse Ox Last 24 Hr 97.6 F-98.1 F 70-79 16-20 132-149/77-91 100 Phyiscal Exam: General: NAD, A&Ox3 Lungs: CTA bilaterally Heart: RRR, S1S2 Abd: Soft, non-tender, non-distended. Normoactive bowel sounds Ext: Warm, well-perfused. 2+ DP/PT bilaterally CBCD WBC 4.1 K/mm3 (4.0-10.0) 10/15/17 06:00 RBC 3.80 M/mm3 (4.00-5.60) L 10/15/17 06:00 Hgb 12.0 GM/dL (11.7-16.9) 10/15/17 06:00 Hct 36.4 % (35.4-49) 10/15/17 06:00 MCV 96.0 fl (80-96) 10/15/17 06:00 MCHC 33.1 g/dl (32.0-35.9) 10/15/17 06:00 RDW 13.6 % (11.9-15.9) 10/15/17 06:00 Plt Count 96 K/MM3 (134-434) L 10/15/17 06:00 MPV 10.0 fl (7.5-11.1) 10/15/17 06:00 CMP Sodium 134 mmol/L (136-145) L 10/15/17 06:00 Potassium 3.1 mmol/L (3.5-5.1) L 10/15/17 06:00 Chloride 97 mmol/L (98-107) L 10/15/17 06:00 Carbon Dioxide 25 mmol/L (21-32) 10/15/17 06:00 Anion Gap 12 (8-16) 10/15/17 06:00 BUN 7 mg/dL (7-18) D 10/15/17 06:00 Creatinine 0.8 mg/dL (0.7-1.3) 10/15/17 06:00 Creat Clearance w eGFR > 60 (>60) 10/15/17 06:00 Random Glucose 58 mg/dL (74-106) L 10/15/17 06:00 Calcium 7.0 mg/dL (8.5-10.1) L 10/15/17 06:00 Total Bilirubin 1.8 mg/dL (0.2-1.0) H D 10/15/17 06:00 AST 82 U/L (15-37) H D 10/15/17 06:00 ALT 108 U/L (12-78) H D 10/15/17 06:00 Alkaline Phosphatase 105 U/L (45-117) D 10/15/17 06:00 Total Protein 5.8 g/dl (6.4-8.2) L D 10/15/17 06:00 Albumin 3.1 g/dl (3.4-5.0) L D 10/15/17 06:00 CARDIAC ENZYMES Creatine Kinase 222 IU/L (39-308) 10/13/17 20:09 Troponin I 0.02 ng/ml (0.00-0.05) D 10/13/17 20:09 Microbiology 10/13/17 10:40 Urine - Urine Clean Catch Urine Culture - Preliminary 10/13/17 20:29 Blood - Peripheral Venous Blood Culture - Preliminary NO GROWTH OBTAINED AFTER 24 HOURS, INCUBATION TO CONTINUE FOR 4 DAYS. 10/13/17 20:09 Blood - Peripheral Venous Blood Culture - Preliminary NO GROWTH OBTAINED AFTER 24 HOURS, INCUBATION TO CONTINUE FOR 4 DAYS. Assessment: This is a 67 year old male with PMHx of CAD s/p CABG, CHF, HTN, hyperlipidemia, who presented to the ED with nausea, vomiting, diarrhea, weakness Plan: 1) Viral gastroenteritis - Afebrile, WBC wnl - No evidence of acute colitis or diverticulitis on CT - Clear liquid diet - Reglan - Advance diet as tolerated 2) Transaminitis - Possibly reactive - Improving - F/u liver ultrasound - F/u GI consult 3) Electrolyte derrangement - Likely 2/2 acute viral gastroenteritis - Hypomagnesemia: replete - Hypocalcemia: replete - Hypokalemia: replete - Hypophosphatemia: replete orally once vomiting resolved 4) Elevated BNP, hx of CHF - Chest X-ray with cardiomegaly, however no evidence of overload - Continue Lasix - Continue Coreg - Continue ASA 5) F/E/N: - Clear liquid diet 6) Prophylaxis: - PT evaluation - SCDs bilaterally 7) Dispo: - Requires continued inpatient care CODE STATUS: FULL CODE Visit type - Emergency Visit Emergency Visit: Yes ED Registration Date: 10/14/17 Care time: The patient presented to the Emergency Department on the above date and was hospitalized for further evaluation of their emergent condition. - New Patient This patient is new to me today: Yes Date on this admission: 10/15/17 - Critical Care Critical Care patient: No
[2017-10-15] MEDS: CALCIUM CARBONATE 650 MG TABLET PO SCH ×2 (11:24→22:58)
[2017-10-15] MEDS ORDERED: CALCIUM CARBONATE 650 MG TABLET PO ONE (12:15)
[2017-10-15] MEDS: POTASSIUM CHLORIDE 10 MEQ in SODIUM CHLORIDE 100 ML IVPB SCH ×3 (13:07→17:34)
--- NOTE | 2017-10-15 16:46 | CON.GI ---
Consult Consult Specialty:: Gastroenterology ( covering for Dr Rosa) Referred by:: Doris Uribe NP Reason for Consultation:: Abnormal LFTs - History of Present Illness Chief Complaint: Weakness and diarrhea since being started on an antibiotic for bronchitis History of Present Illness: 67M presents with weakness and diarrhea since being started on antibiotics for bronchitis. His is noted to have elevated elevated that are rapidly improving. He denies any h/o liver disease and is followed by the [facility]. He had 14 polyps previously removed but only a few during colonoscopy 7 months ago with that group. He denies IVDA and transfusions but has a tattoo and drinks a modest gin on the rocks daily. No FH of liver disease. No recent weight loss. Appetite is good. Has never had an EGD. - History Source History Provided By: Patient Limitations to Obtaining History: No Limitations - Past Medical History Cardio/Vascular: Yes: CAD (s/p CABG and biologic valve replacement [facility] [place] 2002. NO infarctions. ), Hyperlipdemia Gastrointestinal: Yes: Other (multiple colon polyps) Heme/Onc: Yes: Thrombocytopenia Psych: Yes: Other (alcohol) Rheumatology: Yes: Gout - Past Surgical History Past Surgical History: Yes[facility] - Alcohol/Substance Use Hx Alcohol Use: Yes (gin cocktail nightly) Number of Drinks Daily: 1 - Smoking History Smoking history: Current every day smoker Have you smoked in the past 12 months: Yes Aproximately how many cigarettes per day: 10 - Social History Usual Living Arrangement: With Spouse ADL: Independent 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 Place of : [employer] History of Recent Travel: No Home Medications - Allergies Allergies/Adverse Reactions: Allergies Allergy/AdvReac Type Severity Reaction Status Date / Time No Known Allergies Allergy Verified 10/13/17 19:36 - Home Medications Home Medications: Ambulatory Orders Aspirin Coated [Ecotrin -] 81 mg PO DAILY 11/14/13 Furosemide [Lasix -] 40 mg PO DAILY 11/14/13 Allopurinol [Zyloprim -] 100 mg PO DAILY 06/17/14 Carvedilol [Coreg -] 6.25 mg PO BID 06/17/14 Simvastatin [Zocor] 10 mg PO HS 06/17/14 Cyclobenzaprine HCl [Flexeril] 5 mg PO TID PRN #15 tablet 11/14/15 Naproxen [Naprosyn -] 500 mg PO BID PRN #21 tablet 11/14/15 Azithromycin [Zithromax -] 250 mg PO UTDICT #6 tab 10/12/17 Family Disease History - Family Disease History Family Disease History: Heart Disease: Mother ( NC age 52), Other: Father ( CVA age 54) Review of Systems - Review of Systems Constitutional: reports: No Symptoms Eyes: reports: No Symptoms HENT: reports: No Symptoms Neck: reports: No Symptoms Cardiovascular: reports: No Symptoms Respiratory: reports: No Symptoms Gastrointestinal: reports: Diarrhea Genitourinary: reports: No Symptoms Musculoskeletal: reports: No Symptoms Integumentary: reports: No Symptoms Neurological: reports: No Symptoms Physical Exam-GI Vital Signs: Vital Signs Temperature 98.6 F 10/15/17 14:55 Pulse Rate 80 10/15/17 14:55 Respiratory Rate 20 10/15/17 14:55 Blood Pressure 119/74 10/15/17 14:55 O2 Sat by Pulse Oximetry (%) 100 10/15/17 10:00 CBC,CMP WBC 4.1 K/mm3 (4.0-10.0) 10/15/17 06:00 RBC 3.80 M/mm3 (4.00-5.60) L 10/15/17 06:00 Hgb 12.0 GM/dL (11.7-16.9) 10/15/17 06:00 Hct 36.4 % (35.4-49) 10/15/17 06:00 MCV 96.0 fl (80-96) 10/15/17 06:00 MCH 31.7 pg (25.7-33.7) 10/15/17 06:00 MCHC 33.1 g/dl (32.0-35.9) 10/15/17 06:00 RDW 13.6 % (11.9-15.9) 10/15/17 06:00 Plt Count 96 K/MM3 (134-434) L 10/15/17 06:00 MPV 10.0 fl (7.5-11.1) 10/15/17 06:00 Neutrophils % 59.3 % (42.8-82.8) 10/14/17 08:10 Lymphocytes % 25.7 % (8-40) D 10/14/17 08:10 Monocytes % 14.6 % (3.8-10.2) H D 10/14/17 08:10 Eosinophils % 0.2 % (0-4.5) D 10/14/17 08:10 Basophils % 0.2 % (0-2.0) 10/14/17 08:10 Sodium 134 mmol/L (136-145) L 10/15/17 06:00 Potassium 3.1 mmol/L (3.5-5.1) L 10/15/17 06:00 Chloride 97 mmol/L (98-107) L 10/15/17 06:00 Carbon Dioxide 25 mmol/L (21-32) 10/15/17 06:00 Anion Gap 12 (8-16) 10/15/17 06:00 BUN 7 mg/dL (7-18) D 10/15/17 06:00 Creatinine 0.8 mg/dL (0.7-1.3) 10/15/17 06:00 Creat Clearance w eGFR > 60 (>60) 10/15/17 06:00 Random Glucose 58 mg/dL (74-106) L 10/15/17 06:00 Lactic Acid 2.1 mmol/L (0.0-2.0) H 10/14/17 03:15 Calcium 7.0 mg/dL (8.5-10.1) L 10/15/17 06:00 Phosphorus 2.3 mg/dL (2.5-4.9) L D 10/15/17 06:00 Magnesium 1.4 mg/dL (1.8-2.4) L D 10/15/17 06:00 Total Bilirubin 1.8 mg/dL (0.2-1.0) H D 10/15/17 06:00 AST 82 U/L (15-37) H D 10/15/17 06:00 ALT 108 U/L (12-78) H D 10/15/17 06:00 Alkaline Phosphatase 105 U/L (45-117) D 10/15/17 06:00 Creatine Kinase 222 IU/L (39-308) 10/13/17 20:09 Creatine Kinase Index 0.7 % (0.0-5.0) 10/13/17 20:09 CK-MB (CK-2) 1.575 ng/mL (0.5-3.6) 10/13/17 20:09 Troponin I 0.02 ng/ml (0.00-0.05) D 10/13/17 20:09 B-Natriuretic Peptide 2717.94 pg/ml (5-125) H 10/13/17 23:00 Total Protein 5.8 g/dl (6.4-8.2) L D 10/15/17 06:00 Albumin 3.1 g/dl (3.4-5.0) L D 10/15/17 06:00 TSH 1.00 uIU/ml (0.358-3.74) 10/13/17 23:00 Current Medications Generic Name Dose Route Start Last Admin Trade Name Freq PRN Reason Stop Dose Admin Allopurinol 100 mg 10/14/17 10:00 10/15/17 09:28 Zyloprim - PO 100 mg DAILY ELLIE Administration Aspirin 81 mg 10/14/17 10:00 10/15/17 09:28 Ecotrin - PO 81 mg DAILY ELLIE Administration Calcium Carbonate 650 mg 10/15/17 11:00 10/15/17 11:24 Calcium Carbonate - PO Not Given BID ELLIE Carvedilol 6.25 mg 10/14/17 10:00 10/15/17 09:27 Coreg - PO 6.25 mg BID ELLIE Administration Cyclobenzaprine HCl 5 mg 10/14/17 08:54 10/14/17 10:38 Flexeril - PO 5 mg TID PRN Administration MUSCLE SPASMS Furosemide 40 mg 10/14/17 10:00 10/15/17 09:27 Lasix - PO 40 mg DAILY ELLIE Administration Constitutional: Yes: No Distress Eyes: Yes: Conjunctiva Clear HENT: Yes: Normocephalic Neck: Yes: Supple Cardiovascular: Yes: Regular Rate and Rhythm, Other (healed median sternotomy incision) Respiratory: Yes: CTA Bilaterally ...Auscultate: Yes: Normoactive Bowel Sounds ...Palpate: Yes: Soft, Other (nontender) ...Rectal Exam: Yes: Guaiac Positive, Hemorrhoids/Internal (large friable ext hemorrhoids 2+ prostate) Edema: No Peripheral Pulses WNL: Yes Labs: CBC, BMP 10/15/17 06:00 10/15/17 06:00 INR, PTT INR 0.99 (0.82-1.09) 10/13/17 20:09 Laboratory Tests 06/18/14 11/14/15 10/12/17 00:05 14:03 02:56 Plt Count INR ALT 62 30 D 263 H D Magnesium 1.4 L Total Bilirubin AST 95 H 19 D 309 H D Alkaline Phosphatase Albumin 10/13/17 10/13/17 10/15/17 20:09 20:09 06:00 Plt Count 96 L INR 0.99 ALT 219 H Magnesium Total Bilirubin 2.4 H D AST 272 H Alkaline Phosphatase 152 H D Albumin 10/15/17 06:00 Plt Count INR ALT 108 H D Magnesium Total Bilirubin 1.8 H D AST 82 H D Alkaline Phosphatase 105 D Albumin 3.1 L D Imaging - Results Cat Scan: Report Reviewed (Matthew Stapleton Name: PAOLA SALEH DEPARTMENT OF RADIOLOGY Phys: Silverio Marrero RESIDENT : 1950 Age: 67 Sex: M [facility] Acct: [id number] Loc: [address] Exam Date: 10/14/17 Status: [place] [address] Unit Number: [id number] EXAM#: TYPE/EXAM: RESULT: [id number] CT/ABDOMEN PELVIS CT WITH CONTR HISTORY PROVIDED: Abdominal pain. Sequential axial images were obtained from the domes of the diaphragms through the symphysis pubis following the administration of intravenous contrast material. The lung bases are clear. There is a moderate-sized hiatal hernia in the retrocardiac space. The is normal in size. It is hypodense in texture consistent with diffuse fatty infiltration. No mass lesions are identified within the liver. The spleen is normal in size. There is a 1.2 cm hypodensity within the spleen that does not appear to represent a cyst. It may represent a hemangioma. This may represent a hemangioma. The pancreas, adrenal glands and kidneys demonstrate no significant abnormalities. No renal cysts are noted bilaterally. Gallstones are identified within the gallbladder. There is no evidence of intra- abdominal or retroperitoneal lymphadenopathy or fluid collections. There is no evidence of pneumoperitoneum, bowel obstruction or intra-abdominal abscess. There is no CT evidence of acute appendicitis. There is diverticulosis of the colon with no evidence of acute diverticulitis. There is no definite evidence of colitis. Examination of the pelvis demonstrates no evidence of pelvic masses, fluid collections or lymphadenopathy. The prostate gland is mildly enlarged. There is no evidence of acute bony pathology. IMPRESSION: 1. Moderate-sized hiatal hernia. 2. Diffuse fatty infiltration of the liver. 3. Hypodense splenic mass most likely representing a hemangioma. 4. Cholelithiasis. 5. No evidence of acute pathology within the abdomen or pelvis. Please see above discussion. Reported By: Steve Clemons MD 10/14/17903 Technologist: Diamond Hinojosa Transcribed Date/Time: 10/14/17903 Strategy Analyst: Steve Clemons Printed Date/Time: By: Signed by: Steve Clemons Signed on: Sep-2017 09:05) Problem List - Problems (1) Hepatitis Assessment/Plan: The LFT transaminase pattern and rapid resolution is most consistent with alcoholic hepatitis and supported by the fatty liver on imaging. BERMUDEZ cannot be excluded. Given his thrombocytopenia I have warned him that he may already have cirrhosis and should be screened for varices when he returns to his [facility]. Need to observe for DTs. I have strongly advised Paola to absolutely abstain from any further alcohol and to quit smoking as well and to engage in an aerobic exercise regimen. Given his tattoo will screen for other chronic liver diseases. Code(s): K75.9 - INFLAMMATORY LIVER DISEASE, UNSPECIFIED (2) GI bleed Code(s): K92.2 - GASTROINTESTINAL HEMORRHAGE, UNSPECIFIED (3) Diarrhea Assessment/Plan: Given recent antibiotic exposure will order C diff toxin screening, stool for WBC and pathogens. Code(s): R19.7 - DIARRHEA, UNSPECIFIED (4) Thrombocytopenia Code(s): D69.6 - THROMBOCYTOPENIA, UNSPECIFIED (5) Gallstones Assessment/Plan: Seem to be clinically silent. Code(s): K80.20 - CALCULUS OF GALLBLADDER W/O CHOLECYSTITIS W/O OBSTRUCTION (6) Colon polyps Code(s): K63.5 - POLYP OF COLON (7) Hemorrhoids, external without complications Assessment/Plan: Suspect these to be the cause of occult bleeding aggravated by diarrhea Code(s): K64.4 - RESIDUAL HEMORRHOIDAL SKIN TAGS Assessment/Plan Watch for DTs Hepatitis evaluation Diarrhea evaluation
[2017-10-15 19:59] LABS: ALBUMIN 3.5 g/dl (3.4-5.0); ANION GAP 10 (8-16); BLOOD UREA NITROGEN 7 mg/dL (7-18); CALCIUM 7.4 mg/dL (8.5-10.1); CHLORIDE 97 mmol/L (98-107); CO2 27 mmol/L (21-32); CREATININE 0.9 mg/dL (0.7-1.3); GLUCOSE,RANDOM 98 mg/dL (74-106); MAGNESIUM 1.8 mg/dL (1.8-2.4); POTASSIUM 3.7 mmol/L (3.5-5.1); SGOT/AST 75 U/L (15-37); SGPT/ALT 110 U/L (12-78); SODIUM 134 mmol/L (136-145)
[2017-10-15 20:01] LABS: ALK PHOS 114 U/L (45-117); BILIRUBIN,TOTAL 1.3 mg/dL (0.2-1.0); TOT PROT 6.6 g/dl (6.4-8.2)
[2017-10-15] MEDS ORDERED: PT OWN MED DRAWER 7, Y5N ONE (22:55)
[2017-10-16 07:45] LABS: BASO % 2.8 % (0-2.0); EOS % 1.7 % (0-4.5); HEMATOCRIT 39.8 % (35.4-49); HEMOGLOBIN 12.8 GM/dL (11.7-16.9); LYMPH % 26.7 % (8-40); MCHC 32.2 g/dl (32.0-35.9); MEAN CELL VOLUME 96.3 fl (80-96); MEAN PLT VOLUME 9.9 fl (7.5-11.1); MONO % 11.5 % (3.8-10.2); NEUT % 57.3 % (42.8-82.8); PLATELET COUNT 105 K/MM3 (134-434); RBC 4.14 M/mm3 (4.00-5.60); RDW 13.5 % (11.9-15.9); WHITE BLOOD COUNT 3.8 K/mm3 (4.0-10.0)
[2017-10-16 08:03] LABS: CHLORIDE 98 mmol/L (98-107); SODIUM 137 mmol/L (136-145)
[2017-10-16 08:13] LABS: ALBUMIN 3.1 g/dl (3.4-5.0); ALK PHOS 96 U/L (45-117); ANION GAP 12 (8-16); BILIRUBIN,DIRECT 0.4 mg/dL (0.0-0.2); BILIRUBIN,TOTAL 1.3 mg/dL (0.2-1.0); BLOOD UREA NITROGEN 5 mg/dL (7-18); CALCIUM 7.6 mg/dL (8.5-10.1); CO2 27 mmol/L (21-32); CREATININE 0.8 mg/dL (0.7-1.3); GLUCOSE,RANDOM 75 mg/dL (74-106); SGOT/AST 57 U/L (15-37); SGPT/ALT 89 U/L (12-78); TOT PROT 5.9 g/dl (6.4-8.2)
[2017-10-16] MEDS ORDERED: PT OWN MED DRAWER 7, Y5N ONE ×2 (09:43→21:58)
[2017-10-16 10:01] LABS: MAGNESIUM 1.5 mg/dL (1.8-2.4); PHOSPHOROUS 2.6 mg/dL (2.5-4.9)
[2017-10-16] MEDS ORDERED: POTASSIUM CHLORIDE TABS 20 MEQ TABLET.ER (FP) PO ONE (10:13)
--- NOTE | 2017-10-16 10:39 | PN ---
Progress Note (short form) - Note Progress Note: Subjective: The patient was seen and examined at the bedside, he states he is feeling better today Current Medications Generic Name Dose Route Start Last Admin Trade Name Francis PRN Reason Stop Dose Admin Allopurinol 100 mg 10/14/17 10:00 10/15/17 09:28 Zyloprim - PO 100 mg DAILY ELLIE Administration Aspirin 81 mg 10/14/17 10:00 10/15/17 09:28 Ecotrin - PO 81 mg DAILY ELLIE Administration Calcium Carbonate 650 mg 10/15/17 11:00 10/15/17 22:58 Calcium Carbonate - PO 650 mg BID ELLIE Administration Carvedilol 6.25 mg 10/14/17 10:00 10/15/17 22:58 Coreg - PO 6.25 mg BID ELLIE Administration Cyclobenzaprine HCl 5 mg 10/14/17 08:54 10/14/17 10:38 Flexeril - PO 5 mg TID PRN Administration MUSCLE SPASMS Furosemide 40 mg 10/14/17 10:00 10/15/17 09:27 Lasix - PO 40 mg DAILY ELLIE Administration Magnesium Oxide 400 mg 10/16/17 10:15 Mag-Ox - PO BID ELLIE Objective: Vital Signs Period Temp Pulse Resp BP Sys/Reyes Pulse Ox Last 24 Hr 97.8 F-98.6 F 79-91 18-20 119-137/74-84 100 Physical Exam: General: NAD, A&Ox3 Lungs: CTA bilaterally Heart: RRR, S1S2 Abd: Soft, non-tender, non-distended. Normoactive bowel sounds Ext: Warm, well-perfused. 2+ DP/PT bilaterally CBCD WBC 3.8 K/mm3 (4.0-10.0) L 10/16/17 06:00 RBC 4.14 M/mm3 (4.00-5.60) 10/16/17 06:00 Hgb 12.8 GM/dL (11.7-16.9) 10/16/17 06:00 Hct 39.8 % (35.4-49) 10/16/17 06:00 MCV 96.3 fl (80-96) H 10/16/17 06:00 MCHC 32.2 g/dl (32.0-35.9) 10/16/17 06:00 RDW 13.5 % (11.9-15.9) 10/16/17 06:00 Plt Count 105 K/MM3 (134-434) L 10/16/17 06:00 MPV 9.9 fl (7.5-11.1) 10/16/17 06:00 CMP Sodium 137 mmol/L (136-145) 10/16/17 06:00 Potassium 3.0 mmol/L (3.5-5.1) L 10/16/17 06:00 Chloride 98 mmol/L (98-107) 10/16/17 06:00 Carbon Dioxide 27 mmol/L (21-32) 10/16/17 06:00 Anion Gap 12 (8-16) 10/16/17 06:00 BUN 5 mg/dL (7-18) L D 10/16/17 06:00 Creatinine 0.8 mg/dL (0.7-1.3) 10/16/17 06:00 Creat Clearance w eGFR > 60 (>60) 10/16/17 06:00 Random Glucose 75 mg/dL (74-106) D 10/16/17 06:00 Calcium 7.6 mg/dL (8.5-10.1) L 10/16/17 06:00 Total Bilirubin 1.3 mg/dL (0.2-1.0) H 10/16/17 06:00 AST 57 U/L (15-37) H D 10/16/17 06:00 ALT 89 U/L (12-78) H 10/16/17 06:00 Alkaline Phosphatase 96 U/L (45-117) 10/16/17 06:00 Total Protein 5.9 g/dl (6.4-8.2) L 10/16/17 06:00 Albumin 3.1 g/dl (3.4-5.0) L 10/16/17 06:00 CARDIAC ENZYMES Creatine Kinase 222 IU/L (39-308) 10/13/17 20:09 Troponin I 0.02 ng/ml (0.00-0.05) D 10/13/17 20:09 Microbiology 10/13/17 10:40 Urine - Urine Clean Catch Urine Culture - Final Contaminated: Please Repeat 10/13/17 20:29 Blood - Peripheral Venous Blood Culture - Preliminary NO GROWTH OBTAINED AFTER 48 HOURS, INCUBATION TO CONTINUE FOR 3 DAYS. 10/13/17 20:09 Blood - Peripheral Venous Blood Culture - Preliminary NO GROWTH OBTAINED AFTER 48 HOURS, INCUBATION TO CONTINUE FOR 3 DAYS. Assessment: This is a 67 year old male with PMHx of CAD s/p CABG, CHF, HTN, hyperlipidemia, who presented to the ED with nausea, vomiting, diarrhea, weakness Plan: 1) Viral gastroenteritis - Afebrile - No evidence of acute colitis or diverticulitis on CT - Reglan - Advance diet as tolerated 2) Transaminitis - Alcoholic hepatitis? - Fatty infiltrative liver on imaging - Improving - F/u hepatitis panel - F/u AFP - F/u liver ultrasound - F/u GI consult 3) Electrolyte derrangement - Likely 2/2 acute viral gastroenteritis - Hypomagnesemia: replete - Hypocalcemia: replete - Hypokalemia: replete 4) Elevated BNP, hx of CHF - Chest X-ray with cardiomegaly, however no evidence of overload - Continue Lasix - Continue Coreg - Continue ASA 5) F/E/N: - BRAT diet 6) Prophylaxis: - PT evaluation - SCDs bilaterally 7) Dispo: - Requires continued inpatient care CODE STATUS: FULL CODE Visit type - Emergency Visit Emergency Visit: Yes ED Registration Date: 10/14/17 Care time: The patient presented to the Emergency Department on the above date and was hospitalized for further evaluation of their emergent condition. - New Patient This patient is new to me today: No - Critical Care Critical Care patient: No
[2017-10-16] MEDS: ALLOPURINOL 100 MG TABLET (FP) PO SCH (10:40)
[2017-10-16] MEDS: CALCIUM CARBONATE 650 MG TABLET PO SCH ×2 (10:40→22:04)
[2017-10-16] MEDS: CARVEDILOL 6.25 MG TABLET (FP) PO SCH ×2 (10:40→22:04)
[2017-10-16] MEDS: FUROSEMIDE 40 MG TABLET (FP) PO SCH (10:40)
[2017-10-16] MEDS: ASPIRIN COATED 81 MG TABLET.EC PO SCH (10:40)
[2017-10-16] MEDS: MAGNESIUM OXIDE 400 MG TABLET (FP) PO SCH ×2 (10:42→22:04)
--- NOTE | 2017-10-16 14:46 | PN ---
GI Progress Note Subjective: GI NOte: ( covering Dr Rosa): LFTs are improving. Sonogram reveals no gallstones. Liver is fatty. Have again advised Franko to avoid any furher alcohol intake. - Objective Vital Signs: Vital Signs Temperature 98 F 10/16/17 11:00 Pulse Rate 86 10/16/17 11:00 Respiratory Rate 18 10/16/17 11:00 Blood Pressure 133/70 10/16/17 11:00 O2 Sat by Pulse Oximetry (%) 100 10/16/17 09:00 Laboratory Tests 10/15/17 10/15/17 10/16/17 06:00 19:00 06:00 Plt Count Total Bilirubin 1.8 H D 1.3 H AST 82 H D 75 H 57 H D ALT 108 H D 110 H 89 H Alkaline Phosphatase 105 D 96 10/16/17 06:00 Plt Count 105 L Total Bilirubin AST ALT Alkaline Phosphatase Constitutional: Calm ...Auscultate: Yes: Normoactive Bowel Sounds ...Palpate: Yes: Soft, Other (nontender) Labs: CBC, BMP 10/16/17 06:00 10/16/17 06:00 INR, PTT INR 0.99 (0.82-1.09) 10/13/17 20:09 Problem List - Problems (1) Hepatitis Assessment/Plan: 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 I have again warned him that he likely already hascirrhosis and should be screened for varices when he returns to his [facility]. No sign of DTs. I have strongly advised Franko to absolutely abstain from any further alcohol and to quit smoking as well and to engage in an aerobic exercise regimen. Liver studies pending Code(s): K75.9 - INFLAMMATORY LIVER DISEASE, UNSPECIFIED (2) GI bleed Code(s): K92.2 - GASTROINTESTINAL HEMORRHAGE, UNSPECIFIED (3) Diarrhea Code(s): R19.7 - DIARRHEA, UNSPECIFIED (4) Thrombocytopenia Code(s): D69.6 - THROMBOCYTOPENIA, UNSPECIFIED (5) Gallstones Code(s): K80.20 - CALCULUS OF GALLBLADDER W/O CHOLECYSTITIS W/O OBSTRUCTION (6) Colon polyps Code(s): K63.5 - POLYP OF COLON (7) Hemorrhoids, external without complications Code(s): K64.4 - RESIDUAL HEMORRHOIDAL SKIN TAGS
[2017-10-16 16:00] LABS: ANION GAP 9 (8-16); BLOOD UREA NITROGEN 5 mg/dL (7-18); CALCIUM 7.9 mg/dL (8.5-10.1); CHLORIDE 97 mmol/L (98-107); CO2 28 mmol/L (21-32); GLUCOSE,RANDOM 129 mg/dL (74-106); MAGNESIUM 1.5 mg/dL (1.8-2.4); POTASSIUM 3.7 mmol/L (3.5-5.1); SODIUM 134 mmol/L (136-145)
[2017-10-16 16:02] LABS: CREATININE 0.9 mg/dL (0.7-1.3)
[2017-10-16] MEDS ORDERED: MAGNESIUM 2GM/50ML STERILE WATER IVPB IVPB ONE (16:05)
[2017-10-17 06:07] LABS: SERUM IRON SATURATION 24 % (15-55); TOTAL IRON BINDING CAPACITY 242 ug/dL (250-450); UIBC 183 ug/dL (111-343)
[2017-10-17 08:06] LABS: ALBUMIN 3.2 g/dl (3.4-5.0); ANION GAP 6 (8-16); BILIRUBIN,TOTAL 1.2 mg/dL (0.2-1.0); BLOOD UREA NITROGEN 5 mg/dL (7-18); CALCIUM 7.8 mg/dL (8.5-10.1); CHLORIDE 100 mmol/L (98-107); CO2 30 mmol/L (21-32); CREATININE 0.9 mg/dL (0.7-1.3); GLUCOSE,RANDOM 86 mg/dL (74-106); MAGNESIUM 1.8 mg/dL (1.8-2.4); POTASSIUM 4.1 mmol/L (3.5-5.1); SGOT/AST 63 U/L (15-37); SGPT/ALT 81 U/L (12-78); SODIUM 136 mmol/L (136-145)
[2017-10-17 08:07] LABS: ALK PHOS 97 U/L (45-117); TOT PROT 6.1 g/dl (6.4-8.2)
[2017-10-17] MEDS ORDERED: PT OWN MED DRAWER 7, Y5N ONE (09:12)
[2017-10-17] MEDS: CALCIUM CARBONATE 650 MG TABLET PO SCH (09:16)
[2017-10-17] MEDS: CARVEDILOL 6.25 MG TABLET (FP) PO SCH (09:16)
[2017-10-17] MEDS: FUROSEMIDE 40 MG TABLET (FP) PO SCH (09:17)
[2017-10-17] MEDS: ASPIRIN COATED 81 MG TABLET.EC PO SCH (09:17)
[2017-10-17] MEDS: MAGNESIUM OXIDE 400 MG TABLET (FP) PO SCH (09:17)
[2017-10-17] MEDS: ALLOPURINOL 100 MG TABLET (FP) PO SCH (09:17)
--- NOTE | 2017-10-17 10:12 | DS ---
Physical Examination Vital Signs: Vital Signs Temperature 97.9 F 10/17/17 07:56 Pulse Rate 72 10/17/17 07:56 Respiratory Rate 20 10/17/17 07:56 Blood Pressure 122/77 10/17/17 07:56 O2 Sat by Pulse Oximetry (%) 100 10/16/17 21:00 Findings/Remarks: Physical Exam: General: NAD, A&Ox3 Lungs: CTA bilaterally Heart: RRR, S1S2 Abd: Soft, non-tender, non-distended. Normoactive bowel sounds Ext: Warm, well-perfused. 2+ DP/PT bilaterally Labs: CBC, BMP 10/16/17 06:00 10/17/17 06:30 Discharge Summary Reason For Visit: COLITIS/WEAKNESS Current Active Problems Colon polyps (Acute) Diarrhea (Acute) GI bleed (Acute) Gallstones (Acute) Generalized weakness (Acute) Hemorrhoids, external without complications (Acute) Hepatitis (Acute) Thrombocytopenia (Acute) Hospital Course: This is a 67 year old male with PMHx of CAD s/p CABG, CHF, HTN, hyperlipidemia, who presented to the ED with nausea, vomiting, diarrhea, weakness Plan: 1) Viral gastroenteritis - Resolved - Advance diet as tolerated 2) Transaminitis - Alcoholic hepatitis? - Fatty infiltrative liver on imaging - Improving - F/u hepatitis panel - F/u AFP - F/u liver ultrasound - F/u GI consult 3) Electrolyte derrangement - Likely 2/2 acute viral gastroenteritis - Hypomagnesemia: replete - Hypocalcemia: replete 4) Elevated BNP, hx of CHF - Chest X-ray with cardiomegaly, however no evidence of overload - Continue Lasix - Continue Coreg - Continue ASA 5) F/E/N: - BRAT diet Instructed the patient to follow-up with his pcp to have his electrolytes checked within 2-3 days. Please follow-up with your GI doctor with 2-3 days for the results of the pending labs for GI workup and to have your liver enzymes and bilirubin rechecked. Condition: Improved - Instructions Diet, Activity, Other Instructions: Please return to the ED with new, persistent, or worsening symptoms. Please follow-up with providers as indicated. Referrals: Gagan Rosa MD [Staff Physician] - (Please follow-up with gastrointestinal doctor within 2-3 days for further management of your elevated bilirubin and liver enzymes as well as for results of your other GI blood tests.) Roge Cutler [Primary Care Provider] - (Please follow-up with your primary care provider within 2-3 days to have your potassium, magnesium, and calcium levels checked) Disposition: HOME - Home Medications Comprehensive Discharge Medication List: Ambulatory Orders Aspirin Coated [Ecotrin -] 81 mg PO DAILY 11/14/13 Furosemide [Lasix -] 40 mg PO DAILY 11/14/13 Allopurinol [Zyloprim -] 100 mg PO DAILY 06/17/14 Carvedilol [Coreg -] 6.25 mg PO BID 06/17/14 Cyclobenzaprine HCl [Flexeril] 5 mg PO TID PRN #15 tablet 11/14/15 Calcium Carbonate - 650 mg PO BID #6 tablet 10/17/17 This patient is new to me today: Yes Date on this admission: 10/17/17 Emergency Visit: Yes ED Registration Date: 10/14/17 Care time: The patient presented to the Emergency Department on the above date and was hospitalized for further evaluation of their emergent condition. Critical Care patient: No - Discharge Referral Referred to [facility] No
[2017-10-17 11:28] VITALS: BP 115/75; PULSE 69; TEMP 98.2
[2017-10-18 00:06] LABS: HBSAG SCREEN Negative (Negative); HEP A AB, IGM Negative (Negative); HEP B CORE AB, TOT Negative (Negative)
[2017-10-19 08:07] LABS: ALPHA 2 MACROGLOBULINS,QN 141 mg/dL (110-276); ALPHA 2 MACROGLOBULINS,QN 145 mg/dL (110-276); ALT(SGPT)P5P 77 IU/L (0-55); ALT(SGPT)P5P 84 IU/L (0-55); CHOLESTEROL TOTAL 198 mg/dL (100-199); CHOLESTEROL TOTAL 202 mg/dL (100-199); FIBROSIS SCORE 0.29 (0.00-0.21); FIBROSIS SCORE- 0.24 (0.00-0.21); GGT= 193 IU/L (0-65); GGT= 194 IU/L (0-65); GLUCOSE SERUM 80 mg/dL (65-99); GLUCOSE SERUM 87 mg/dL (65-99); HEIGHT 71 Inches (.); HEIGHT. 71 Inches (.); WEIGHT- 150 LBS (.); WEIGHT. 150 LBS (.)
== END 2017-10-17 11:25 | disposition home or self-care (01) | DRG 392 ==
LOC: JER 18:42 → JERBED 10-14 05:33 → UNDOADMOB 10-14 05:35 → OBSVTOIN 10-14 12:10 → J8W 10-14 23:24
PROVIDERS: ADMIT Internal Medicine; ATTEND Registered Nurse
DX: A08.4 Viral intestinal infection, unspecified (principal); R74.0 Nonspecific elevation of levels of transaminase and lactic acid dehydrogenase [LDH]; D69.6 Thrombocytopenia, unspecified; I25.10 Atherosclerotic heart disease of native coronary artery without angina pectoris; Z95.1 Presence of aortocoronary bypass graft; I11.0 Hypertensive heart disease with heart failure; I50.9 Heart failure, unspecified; E78.5 Hyperlipidemia, unspecified; K80.20 Calculus of gallbladder without cholecystitis without obstruction; K63.5 Polyp of colon; K64.4 Residual hemorrhoidal skin tags; E83.42 Hypomagnesemia; E83.51 Hypocalcemia; E87.6 Hypokalemia; F17.210 Nicotine dependence, cigarettes, uncomplicated; E83.39 Other disorders of phosphorus metabolism
CPT/HCPCS: 36415; 70450-TC; 71045-TC-FY; 71046-TC-FY; 74177-TC; 76705-TC; 80048; 80053; 80076; 81003; 81015; 82009; 82105; 82172; 82247; 82465; 82550; 82553; 82728; 82803; 82947; 82977; 83010; 83540; 83550; 83605; 83690; 83735; 83880; 83883; 84100; 84443; 84450; 84460; 84478; 84484; 85025; 85027; 85610; 85730; 86038; 86704; 86706; 86708; 86803; 86850; 86900; 86901; 87040; 87086; 87340; 87804; 93005; 93010; 96360; 97116-GP; 97161-GP; 99283-25; 99285-25; G0378; J7030

== ENCOUNTER 2018-05-20 11:27 | Inpatient (IN) | payer OTHER ==
[2018-05-20] MEDS ORDERED: SODIUM CHLORIDE 1,000 ML IV STA ×2 (12:12→15:05)
[2018-05-20] MEDS ORDERED: IBUPROFEN 800 MG/8 ML IJ IVPB ONE ×2 (12:29→12:31)
[2018-05-20] MEDS ORDERED: PIPERACILLIN/TAZOB 3.375 GM 3.375 GM in DEXTROSE 5%-WATER - 50 ML IVPB ONE (12:31)
[2018-05-20] MEDS ORDERED: VANCOMYCIN 1,000 MG in DEXTROSE 5%-WATER - 250 ML IVPB ONE (12:31)
[2018-05-20 12:35] LABS: VENOUS PC02 42.9 mmHg (38-52); VENOUS PH 7.36 (7.32-7.42); VENOUS PO2 31.6 mmHg (28-48)
[2018-05-20] MEDS ORDERED: LORazepam 2 MG/ML SDV VIAL ONE (12:38)
[2018-05-20] MEDS ORDERED: PIPERACILLIN/TAZOB 3.375 GM 3.375 GM/50 ML BAG IVPB ONE (12:39)
[2018-05-20] MEDS ORDERED: VANCOMYCIN 1 GRAM (PRE-DOCKED) 1,000 MG/250 ML BAG IVPB ONE (12:39)
[2018-05-20 12:43] LABS: BASO % 0.7 % (0-2.0); EOS % 0.4 % (0-4.5); HEMATOCRIT 41.8 % (35.4-49); HEMOGLOBIN 14.1 GM/dL (11.7-16.9); LYMPH % 4.8 % (8-40); MCH 31.9 pg (25.7-33.7); MCHC 33.7 g/dl (32.0-35.9); MEAN CELL VOLUME 94.5 fl (80-96); MEAN PLT VOLUME 10.2 fl (7.5-11.1); MONO % 10.6 % (3.8-10.2); NEUT % 83.5 % (42.8-82.8); PLATELET COUNT 174 K/MM3 (134-434); RBC 4.42 M/mm3 (4.00-5.60); RDW 14.8 % (11.9-15.9)
--- NOTE | 2018-05-20 12:43 | PDOC ---
Attending Attestation - Resident Resident Name: NoahJhon yancey - ED Attending Attestation I have performed the following: I have examined & evaluated the patient, The case was reviewed & discussed with the resident, I agree w/resident's findings & plan, Exceptions are as noted - HPI HPI: 67 yo M history CAD, EtOH abuse, HTN, HL presents with SOB, ANAND for past 4 days. He did not want to seek evaluation, but came to ED today at behest of family. Family at bedside states he has been having difficulty ambulating, doing ADLs due to SOB. He has lost a significant amount of weight over the past year. - Physicial Exam PE: GENERAL: Awake, alert, and fully oriented. +Tachypnea. Appears ill with temporal wasting. HEAD: No signs of trauma EYES: PERRLA, EOMI, sclera anicteric, conjunctiva clear ENT: Auricles normal inspection, hearing grossly normal, nares patent, oropharynx clear without exudates. Dry mucosa NECK: Normal ROM, supple, no lymphadenopathy, JVD, or masses LUNGS: Tachypneic, good air entry, +crackles at bases B/L. HEART: Tachycardic, normal S1 and S2, no murmurs, rubs or gallops ABDOMEN: Soft, nontender, normoactive bowel sounds. No guarding, no rebound. No masses EXTREMITIES: Normal range of motion, no edema. No clubbing or cyanosis. No cords, erythema, or tenderness NEUROLOGICAL: Cranial nerves II through XII grossly intact. Normal speech. Motor and sensation intact. SKIN: Warm, Dry, normal turgor, no rashes or lesions noted. - Critical Care Time Total Critical Care Time: 45 Critical Care Statement: The care of this patient involved high complexity decision making to prevent further life threatening deterioration of the patient 's condition and/or to evaluate & treat vital organ system(s) failure or risk of failure. - Medical Decision Making Pt appears ill. DDx is broad, including sepsis (due to poss pna), thyroid storm , CHF. Bedside echo in the ED shows poor contractility, will give fluids cautiously. PAtient appears dehydrated, so will need some resuscitation, however , is at risk for fluid overload. CXR appears congested with a consolidation, but based on appearance, it could also be PCP (under consideration as patient has weight loss and temporal wasting). Added HIV test. Will require ICU admission. Heart Score/ECG Review - ECG Impressions Comment:: EKG read 12:09- sinus tach, multiple PACs and 1 PVC, 141 bpm
[2018-05-20 12:58] LABS: INR 1.04 (0.83-1.09); PROTHROMBIN TIME (PATIENT) 11.7 SEC (9.7-13.0)
[2018-05-20 13:00] LABS: ALBUMIN 2.3 g/dl (3.4-5.0); ALK PHOS 131 U/L (45-117); ANION GAP 18 MMOL/L (8-16); BILIRUBIN,TOTAL 1.7 mg/dL (0.2-1.0); BLOOD UREA NITROGEN 22 mg/dL (7-18); CALCIUM 8.1 mg/dL (8.5-10.1); CHLORIDE 90 mmol/L (98-107); CO2 23 mmol/L (21-32); CREATININE 1.2 mg/dL (0.7-1.3); GLUCOSE,RANDOM 97 mg/dL (74-106); SGPT/ALT 57 U/L (12-78); SODIUM 131 mmol/L (136-145); TOT PROT 6.9 g/dl (6.4-8.2)
[2018-05-20 13:01] LABS: ACTIVATED PTT 31.6 SECONDS (25.2-36.5); POTASSIUM 4.2 mmol/L (3.5-5.1); SGOT/AST 143 U/L (15-37)
--- NOTE | 2018-05-20 13:23 | PDOC ---
History of Present Illness - General Chief Complaint: Shortness of Breath Stated Complaint: SOB Time Seen by Provider: 05/20/18 12:05 History Source: Patient, Family Exam Limitations: Clinical Condition - History of Present Illness Initial Comments: 05/20/18 13:12 Patient is a 67M with history of CAD s/p CABG, etoh abuse (drinks 1/3 bottle of gin per day), tobacco abuse, HTN, HLD here today complaining of shortness of breath for the past 4 days. Patient states that he has chest pain in both sides when he takes a deep breath. Patient states that he noticed his eyes were proptotic starting this morning. Denies history of thyroid problems. Last drink was yesterday. Daughter endorses tactile fever. Denies history of blood clots. Denies leg swelling. Past History - Past Medical History Allergies/Adverse Reactions: Allergies Allergy/AdvReac Type Severity Reaction Status Date / Time No Known Allergies Allergy Verified 05/20/18 11:37 Home Medications: Ambulatory Orders Allopurinol [Zyloprim -] 300 mg PO DAILY 05/20/18 Carvedilol [Coreg -] 6.25 mg PO DAILY 05/20/18 Furosemide [Lasix -] 40 mg PO DAILY 05/20/18 Ibuprofen [Motrin -] 600 mg PO TID PRN 05/20/18 Multivit-Min/FA/Lycopen/Lutein [Centrum Silver Tablet] 1 each PO DAILY 05/20/18 Simvastatin [Zocor -] 20 mg PO HS 05/20/18 predniSONE [Deltasone -] 4 mg PO DAILY 05/20/18 COPD: No CHF: Yes HTN: Yes Hypercholesterolemia: Yes - Surgical History Cardiac Surgery: Yes (S/P CABG) - Immunization History Immunization Up to Date: No - Suicide/Smoking/Psychosocial Hx Smoking History: Never smoked Have you smoked in the past 12 months: Yes Number of Cigarettes Smoked Daily: 10 Information on smoking cessation initiated: No Hx Alcohol Use: Yes (gin cocktail nightly) Drug/Substance Use Hx: No Substance Use Type: Alcohol Review of Systems - Review of Systems Comments:: 05/20/18 13:24 GENERAL/CONSTITUTIONAL: +fever +chills. No weakness. HEAD, EYES, EARS, NOSE AND THROAT: No change in vision. No ear pain or discharge. No sore throat. CARDIOVASCULAR: +chest pain +shortness of breath RESPIRATORY: No cough, wheezing, or hemoptysis. GASTROINTESTINAL: No nausea, vomiting, diarrhea or constipation. GENITOURINARY: No dysuria, frequency, or change in urination. MUSCULOSKELETAL: No joint or muscle swelling or pain. No neck or back pain. SKIN: No rash NEUROLOGIC: No headache, vertigo, loss of consciousness, or change in strength/ sensation. ENDOCRINE: No increased thirst. No abnormal weight change HEMATOLOGIC/LYMPHATIC: No anemia, easy bleeding, or history of blood clots. ALLERGIC/IMMUNOLOGIC: No hives or skin allergy. *Physical Exam - Vital Signs Last Vital Signs Temp Pulse Resp BP Pulse Ox 101.6 F H 133 H 28 H 149/47 96 05/20/18 12:10 05/20/18 12:10 05/20/18 12:10 05/20/18 11:33 05/20/18 12:30 - Physical Exam Comments: 05/20/18 13:25 GENERAL: Awake, alert, and fully oriented, in no acute distress HEAD: No signs of trauma, normocephalic, atraumatic EYES: PERRLA, EOMI, sclera icteric, proptosis bilaterally ENT: Auricles normal inspection, hearing grossly normal, nares patent, oropharynx clear without exudates. Moist mucosa NECK: Normal ROM, supple, no lymphadenopathy, JVD, or masses LUNGS: Tachypneic, using accessory muscles, speaks short sentences, coarse lung sounds in left lower lobe, crackes in lower right lobe, splinting HEART: Tachycardic, irregular, normal S1 and S2, no murmurs, rubs or gallops, peripheral pulses normal and equal bilaterally. ABDOMEN: Soft, nontender, normoactive bowel sounds. No guarding, no rebound. No masses EXTREMITIES: Normal inspection, Normal range of motion, no edema. No clubbing or cyanosis. NEUROLOGICAL: Cranial nerves II through XII grossly intact. Normal speech, no focal sensorimotor deficits. No tremors SKIN: Warm, Dry, normal turgor, no rashes or lesions noted. ED Treatment Course - LABORATORY CBC & Chemistry Diagram: 05/20/18 12:00 05/20/18 12:00 - ADDITIONAL ORDERS Additional order review: Laboratory Results 05/20/18 05/20/18 05/20/18 12:20 12:00 12:00 PT with INR 11.70 INR 1.04 PTT (Actin FS) 31.6 VBG pH 7.36 POC VBG pCO2 42.9 POC VBG pO2 31.6 Mixed VBG HCO3 23.5 Sodium 131 L Potassium 4.2 Chloride 90 L Carbon Dioxide 23 D Anion Gap 18 H BUN 22 H Creatinine 1.2 Creat Clearance w eGFR > 60 Random Glucose 97 Calcium 8.1 L Total Bilirubin 1.7 H AST 143 H D ALT 57 D Alkaline Phosphatase 131 H Total Protein 6.9 Albumin 2.3 L 05/20/18 12:00 RBC 4.42 MCV 94.5 MCHC 33.7 RDW 14.8 Neutrophils % 83.5 H D Lymphocytes % 4.8 L D Monocytes % 10.6 H Eosinophils % 0.4 Basophils % 0.7 - RADIOLOGY Radiology Studies Ordered: Category Date Time Status CHEST X-RAY PORTABLE* [RAD] Stat Radiology 05/20/18 12:12 Completed - Medications Given in the ED: ED Medications Discontinued Medications Generic Name Dose Route Start Last Admin Trade Name Freq PRN Reason Stop Dose Admin Sodium Chloride 1,000 mls @ 1,000 mls/hr 05/20/18 12:12 05/20/18 12:30 Normal Saline - IV 05/20/18 13:11 1,000 mls/hr ASDIR STA Administration Ibuprofen 800 mg 05/20/18 12:29 05/20/18 12:30 Caldolor Injection - IVPB 05/20/18 12:30 800 mg ONCE ONE Administration Medical Decision Making - Critical Care Time Total Critical Care Time (minutes): 65 Critical Care Statement: The care of this patient involved high complexity decision making to prevent further life threatening deterioration of the patient 's condition and/or to evaluate & treat vital organ system(s) failure or risk of failure. - Medical Decision Making 05/20/18 13:26 Patient is a 67M with history CAD s/p CABG, CHF, HTN, HLD, alcohol abuse, tobacco abuse here today with sepsis secondary to likely pneumonia. Tachy to 130s, febrile, tachypnea to 40s. EKG shows sinus tachycardia to 141. No st elevations/depressions. Poor baseline makes evaluation of t waves difficult. One PVC. Identification of p-waves difficult, but has p waves in lead II. US shows hepatization of left lower lobe, b-lines bilaterally. Poor cardiac function. CXR shows bilateral infiltrates and congestive changes. DDx is broad, and includes: Pneumonia, alcohol withdrawal, hyperthyroidism. Given 1L of fluids. Not doing 30cc/kg bolus given patient's CHF status and poor heart function on bedside ultrasound. Believe patient is still dry given no edema in legs and dry mouth. Will give vanc/zosyn for infectious process. Ibuprofen for fever given liver history and insults. Started on bipap given respiratory status. Full code. 05/20/18 13:41 Laboratory Tests 10/17/17 05/20/18 05/20/18 06:30 12:00 12:00 WBC 10.0 Hgb 14.1 Neutrophils % 83.5 H D VBG pH POC VBG pCO2 Sodium 131 L Chloride 90 L Anion Gap 18 H BUN 22 H Creatinine 1.2 Lactic Acid Total Bilirubin 1.2 H 1.7 H 05/20/18 05/20/18 12:00 12:20 WBC Hgb Neutrophils % VBG pH 7.36 POC VBG pCO2 42.9 Sodium Chloride Anion Gap BUN Creatinine Lactic Acid 3.6 H* Total Bilirubin CBC shows normal white count, bili elevated to 1.7, last 1.2. VBG normal. Lactic acid elevated to 3.6. Patient re-evaluated, HR now 110, oxygenation status improving to 95-98%. Tachypnea to 30s instead of 40s. 05/20/18 14:15 10% bands. Troponin undetectable. TSH 0.55. 05/20/18 14:[address] Barnard. Pending ICU approval. *DC/Admit/Observation/Transfer Diagnosis at time of Disposition: Pneumonia - Discharge Dispostion Condition at time of disposition: Critical Decision to Admit order: Yes - Referrals Referrals: Roge Cutler [Primary Care Provider] - - Patient Instructions - Post Discharge Activity
[2018-05-20 13:52] LABS: TOXIC GRANULATION 1+
--- NOTE | 2018-05-20 14:57 | CONSULT ---
Consultation: REQUESTING PROVIDER: CONSULT REQUEST: We have been asked to medically evaluate this patient for sepsis 2/2 to pneumonia. HISTORY OF PRESENT ILLNESS: Patient is a 67 y/o male with a history of alcohol abuse, CHF, CAD 2/p CABG, HTN , HLD who presented because of difficulty walking and shortness of breath. On tuesday he began having trouble walking with pain in his feet. Patient has not been taking his home medications since tuesday. He has not been able to walk since tuesday and has been using a urinal. Patient has been coughing and bringing up yellow sputum during this time. He was diaphoretic but the family di dnot take his temperature. 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 He reports some lower abdominal pain. He drinks 1 pint of alcohol in three days. Patient is a current active smoker. Patient currently on Bipap. REVIEW OF SYSTEMS: CONSTITUTIONAL: generalized weakness Absent: fever, chills, diaphoresis, malaise, loss of appetite, weight change HEENT: Absent: rhinorrhea, nasal congestion, throat pain, throat swelling, difficulty swallowing, mouth swelling, ear pain, eye pain, visual changes CARDIOVASCULAR: Absent: chest pain, syncope, palpitations, irregular heart rate, lightheadedness , peripheral edema RESPIRATORY: shortness of breath, dyspnea with exertion Absent: cough,, orthopnea, wheezing, stridor, hemoptysis GASTROINTESTINAL:abdominal pain, Absent: nausea, vomiting, diarrhea, constipation, melena, hematochezia GENITOURINARY: Absent: dysuria, frequency, urgency, hesitancy, hematuria, flank pain, genital pain MUSCULOSKELETAL: Absent: myalgia, arthralgia, joint swelling, back pain, neck pain SKIN: Absent: rash, itching, pallor NEUROLOGIC: Absent: headache, focal weakness or paresthesias, dizziness, unsteady gait, seizure, mental status changes, bladder or bowel incontinence PSYCHIATRIC: Absent: anxiety, depression, suicidal or homicidal ideation, hallucinations. PHYSICAL EXAMINATION Vital Signs - 24 hr 05/20/18 05/20/18 05/20/18 11:33 11:50 12:10 Temperature 98.1 F 101.6 F H Pulse Rate 75 133 H Respiratory 18 30 H 28 H Rate Blood Pressure 149/47 O2 Sat by Pulse 90 L 85 L 92 L Oximetry (%) 05/20/18 12:30 Temperature Pulse Rate Respiratory Rate Blood Pressure O2 Sat by Pulse 96 Oximetry (%) GENERAL: Awake, alert, and fully oriented, lethargic on bipap HEAD: Normal with no signs of trauma. EYES: Pupils equal, round and reactive to light, extraocular movements intact EARS, NOSE, THROAT: Moist mucous membranes. NECK: Normal range of motion, supple without lymphadenopathy, JVD LUNGS: crackles at left base, on bipap HEART: Regular rate and rhythm, normal S1 and S2 without murmur, rub or gallop. ABDOMEN: Soft, mild LLQ tenderness to palpation not distended, normoactive bowel sounds, no guarding, LOWER EXTREMITIES: 2+ dp pulses, warm, well-perfused. No calf tenderness. No peripheral edema. PSYCHIATRIC: Cooperative. Good eye contact. Appropriate mood and affect. SKIN: Warm, dry, normal turgor, no rashes or lesions noted. CBCD WBC 10.0 K/mm3 (4.0-10.0) 05/20/18 12:00 RBC 4.42 M/mm3 (4.00-5.60) 05/20/18 12:00 Hgb 14.1 GM/dL (11.7-16.9) 05/20/18 12:00 Hct 41.8 % (35.4-49) 05/20/18 12:00 MCV 94.5 fl (80-96) 05/20/18 12:00 MCHC 33.7 g/dl (32.0-35.9) 05/20/18 12:00 RDW 14.8 % (11.9-15.9) 05/20/18 12:00 Plt Count 174 K/MM3 (134-434) D 05/20/18 12:00 MPV 10.2 fl (7.5-11.1) 05/20/18 12:00 CMP Sodium 131 mmol/L (136-145) L 05/20/18 12:00 Potassium 4.2 mmol/L (3.5-5.1) 05/20/18 12:00 Chloride 90 mmol/L (98-107) L 05/20/18 12:00 Carbon Dioxide 23 mmol/L (21-32) D 05/20/18 12:00 Anion Gap 18 MMOL/L (8-16) H 05/20/18 12:00 BUN 22 mg/dL (7-18) H 05/20/18 12:00 Creatinine 1.2 mg/dL (0.7-1.3) 05/20/18 12:00 Creat Clearance w eGFR > 60 (>60) 05/20/18 12:00 Calcium 8.1 mg/dL (8.5-10.1) L 05/20/18 12:00 Total Bilirubin 1.7 mg/dL (0.2-1.0) H 05/20/18 12:00 AST 143 U/L (15-37) H D 05/20/18 12:00 ALT 57 U/L (12-78) D 05/20/18 12:00 Alkaline Phosphatase 131 U/L (45-117) H 05/20/18 12:00 Total Protein 6.9 g/dl (6.4-8.2) 05/20/18 12:00 Albumin 2.3 g/dl (3.4-5.0) L 05/20/18 12:00 ASSESSMENT/PLAN: Patient is a 67 y/o male with a history of alcohol abuse, CHF, CAD 2/p CABG, HTN , HLD who presents with sepsis 2/2 to pneumonia complicated by CHF exacerbation. Neurology lethargic 2/2 to acute respiratory failure - monitor patient on BIPAP - baseline A&Ox3, walks with cane Cardiology Acute on Chronic CHF exacerbation - hold home lasix due to sepsis, restart once patient is hemodynamically stable and lactic acid has normalized - CXR: new bilateral pulmonary and pleural changes left greater then right - troponin < .02, repeat cardiac profile @ 6 - lasix 20 mg IV push one time dose - f/u BNP - f/u Cardiology consult - f/u Echo Pulmonology Acute hypoxic respiratory failure 2/2 to pneumonia complicated by COPD exacerbation - tachypnic, currently on BIPAP - ABG pH: 7.41 CO2: 38.3 O2: 78.7 - CXR - duonebs q4 - albuterol q2h prn - mehtylprednisolone 60 mg IV push GI Transaminitis 2/2 to alcohol use vs sepsis - CIWA - f/u LFTS - abd CT in September 2017: moderate hiatal hernia, diffuse fatty liver, hypodense splenic mass likely representing hemangioma alcohol abuse - f/u folate levels, thiamine level - would add prn ativan for DT's, has history of alcohol abuse with 1 L over the course of three days ppx - protonix 40 IV mg daily Infectious Disease Pneumonia - CXR: new bilateral pulmonary and pleural changes left greater then right - Vanc 1 gm ( day 1) - Zosyn 4.475 q6h (day 1) - Azythromycin 500mg ( day 1) - lactic acidosis resolved - f/u CXR in am - f/u sputum cx, blood cx, legionella and pna antigen MSK degeneartive joint disesae - history: stable Tobacco - consider nicotine patch, discuss with patient FEN - hold fluids, lactic acid resolved - NPO with bipap mask Dispo: We will continue to follow the patient. Thank you for this consultative opportunity. home meds from patients daughter, not confirmed with pharmacy Visit type - Emergency Visit Emergency Visit: Yes ED Registration Date: 05/20/18 Care time: The patient presented to the Emergency Department on the above date and was hospitalized for further evaluation of their emergent condition. - New Patient This patient is new to me today: Yes Date on this admission: 05/20/18 - Critical Care Critical Care patient: Yes Total Critical Care Time (in minutes): 50 Critical Care Statement: The care of this patient involved high complexity decision making to prevent further life threatening deterioration of the patient 's condition and/or to evaluate & treat vital organ system(s) failure or risk of failure.
[2018-05-20] MEDS ORDERED: SODIUM CHLORIDE 1,000 ML IV SCH (15:30)
[2018-05-20] MEDS ORDERED: methylPREDNISolone NA SUCC 125 MG/2 ML VIAL IVPUSH ONE (15:35)
[2018-05-20 16:06] LABS: ARTERIAL BLD GAS O2 SATURATION 94.7 % (90-98.9); ARTERIAL BLOOD GAS BASE EXCESS -0.1 meq/l (-2-2); ARTERIAL BLOOD GAS PCO2 38.3 mmHg (35-45); ARTERIAL BLOOD GAS PO2 78.7 mmHg (80-100); ARTERIAL BLOOD GAS pH 7.41 (7.35-7.45); CARBOXYHEMOGLOBIN 1.9 gm% (0.5-2.0)
[2018-05-20 16:08] LABS: ALLENS TEST POSITIVE
[2018-05-20] MEDS ORDERED: DEXTROSE 5%-NORMAL SALINE 1,000 ML IV SCH (16:15)
--- NOTE | 2018-05-20 16:24 | PN ---
Teaching Attending Note Name of Resident: Keanu Arriola ATTENDING PHYSICIAN STATEMENT I saw and evaluated the patient. I reviewed the resident's note and discussed the case with the resident. I agree with the resident's findings and plan as documented with exceptions below. SUBJECTIVE: 67 yom with PMHx of CAD s/p CABG (2002), CHF (?systolic vs diastolic), active heavy smoker x35 years, COPD, HTN, HLD comes with progressive weakness, decreased PO intake, dyspnea, for last 3-4 days. No c/o chest pain, palpitations , reported fevers, sputum, sick contacts, recent travel. No recent h/o orthopnea/PND, pedal edema or weight gain. Rather family feels patient might have lost weight from poor oral intake. Currently patient opens eyes, able to recognize his family members, denies any pain, on bipap. In ED, was noted tachypneic to 40s, placed on bipap. S/p zosyn/vancomycin, 1L IVF bolus with normalization of lactate. Currently still tachypneic. Family at bedside. 12 point ROS done with family, as above. OBJECTIVE: Vital Signs Period Temp Pulse Resp BP Sys/Reyes Pulse Ox Last 24 Hr 98.1 F-101.6 F 75-133 18-30 103-149/47-80 85-98 Intake & Output 05/17/18 05/18/18 05/19/18 05/20/18 23:59 23:59 23:59 23:59 Weight 146 lb GENERAL: Opens eyes to voice, responds to family, answers questions, tachypneic , use of acessory muscles of respiration HEAD: Normal with no signs of trauma. EYES: Pupils equal, round and reactive to light, extraocular movements intact, sclera anicteric, conjunctiva clear. No lid lag. EARS, NOSE, THROAT: Ears normal, nares patent, oropharynx clear without exudates. Moist mucous membranes, limited exam as currently on bipap NECK: soft, supple, no JVD visualized LUNGS: left basilar rales, right side with no clear rales or wheezing but limited exam given current respiratory status and limited mobility HEART: S1S2 irregular, tachycardic ABDOMEN: Soft, distended (chronic per family), NT throughout, positive bowel sounds. UPPER EXTREMITIES: 2+ pulses, warm, well-perfused. No cyanosis. No clubbing. No peripheral edema. LOWER EXTREMITIES: 2+ pulses, warm, well-perfused. No calf tenderness. No peripheral edema. NEUROLOGICAL: facial symmetry, moves all extremities freely, symmetrically, otherwise limited PSYCHIATRIC: lethargic, but opens eyes and responds SKIN: Warm, dry, normal turgor, no rashes or lesions noted, normal capillary refill. Home Medications Medication Instructions Recorded Allopurinol [Zyloprim -] 300 mg PO DAILY 05/20/18 Carvedilol [Coreg -] 6.25 mg PO BID 05/20/18 Furosemide [Lasix -] 40 mg PO DAILY 05/20/18 Ibuprofen [Motrin -] 600 mg PO TID PRN 05/20/18 Multivit-Min/FA/Lycopen/Lutein 1 each PO DAILY 05/20/18 [Centrum Silver Tablet] Simvastatin [Zocor -] 20 mg PO HS 05/20/18 predniSONE [Deltasone -] 1 mg PO QID 05/20/18 Active Medications Allopurinol (Zyloprim -) 300 mg PO DAILY [facility] Atorvastatin Calcium (Lipitor -) 10 mg PO HS [facility] Carvedilol (Coreg -) 6.25 mg PO BID [facility] Chlorhexidine Gluconate (Hibiclens For Decolonization -) 1 applic TP HS [facility] Heparin Sodium (Porcine) (Heparin -) 5,000 unit SQ TID [facility] Vancomycin HCl 1,000 mg/ (Dextrose) 250 mls @ 166.667 mls/hr IVPB ONCE ONE; Protocol Stop: 05/21/18 16:59 Piperacillin Sod/Tazobactam (Sod 4.45 gm/ Dextrose) 50 mls @ 100 mls/hr IVPB Q6H-IV [facility]; Protocol Stop: 05/21/18 20:59 Piperacillin Sod/Tazobactam (Sod 3.375 gm/ Dextrose) 100 mls @ 200 mls/hr IVPB Q6H [facility] Stop: 05/21/18 06:29 Azithromycin 500 mg/ Dextrose 250 mls @ 250 mls/hr IVPB DAILY [facility] Methylprednisolone Sodium Succinate (Solu-Medrol -) 60 mg IVPUSH Q6H-IV [facility] Mupirocin (Bactroban Ointment (For Decolonization) -) 1 applic NS BID [facility] Stop: 05/25/18 21:59 Pantoprazole Sodium (Protonix Iv) 40 mg IVPUSH DAILY [facility] Laboratory Results - last 24 hr 05/20/18 05/20/18 05/20/18 12:00 12:00 12:00 WBC 10.0 RBC 4.42 Hgb 14.1 Hct 41.8 MCV 94.5 MCH 31.9 MCHC 33.7 RDW 14.8 Plt Count 174 D MPV 10.2 Absolute Neuts (auto) 8.3 H Total Counted 100 Neutrophils % 83.5 H D Neutrophils % (Manual) 76.0 Band Neutrophils % 10.0 Lymphocytes % 4.8 L D Lymphocytes % (Manual) 6.0 L Monocytes % 10.6 H Monocytes % (Manual) 7 Eosinophils % 0.4 Basophils % 0.7 Nucleated RBC % 0 Metamyelocytes 1 Toxic Granulation 1+ Dohle Bodies 1+ Platelet Comment A PT with INR 11.70 INR 1.04 PTT (Actin FS) 31.6 Anticoagulation Therapy Puncture Site ABG pH ABG pCO2 at Pt Temp ABG pO2 at Pt Temp ABG HCO3 ABG O2 Sat (Measured) ABG O2 Content ABG Base Excess Graeme Test VBG pH POC VBG pCO2 POC VBG pO2 Mixed VBG HCO3 Carboxyhemoglobin Methemoglobin O2 Delivery Device Oxygen Flow Rate Vent Mode Vent Rate Mechanical Rate PEEP Pressure Support Vent Sodium 131 L Potassium 4.2 Chloride 90 L Carbon Dioxide 23 D Anion Gap 18 H BUN 22 H Creatinine 1.2 Creat Clearance w eGFR > 60 Random Glucose 97 Lactic Acid Calcium 8.1 L Total Bilirubin 1.7 H AST 143 H D ALT 57 D Alkaline Phosphatase 131 H Troponin I < 0.02 Total Protein 6.9 Albumin 2.3 L TSH 0.55 D 05/20/18 05/20/18 05/20/18 12:00 12:20 14:04 WBC RBC Hgb Hct MCV MCH MCHC RDW Plt Count MPV Absolute Neuts (auto) Total Counted Neutrophils % Neutrophils % (Manual) Band Neutrophils % Lymphocytes % Lymphocytes % (Manual) Monocytes % Monocytes % (Manual) Eosinophils % Basophils % Nucleated RBC % Metamyelocytes Toxic Granulation Dohle Bodies Platelet Comment PT with INR INR PTT (Actin FS) Anticoagulation Therapy Puncture Site ABG pH ABG pCO2 at Pt Temp ABG pO2 at Pt Temp ABG HCO3 ABG O2 Sat (Measured) ABG O2 Content ABG Base Excess Graeme Test VBG pH 7.36 POC VBG pCO2 42.9 POC VBG pO2 31.6 Mixed VBG HCO3 23.5 Carboxyhemoglobin Methemoglobin O2 Delivery Device Oxygen Flow Rate Vent Mode Vent Rate Mechanical Rate PEEP Pressure Support Vent Sodium Potassium Chloride Carbon Dioxide Anion Gap BUN Creatinine Creat Clearance w eGFR Random Glucose Lactic Acid 3.6 H* 1.8 Calcium Total Bilirubin AST ALT Alkaline Phosphatase Troponin I Total Protein Albumin TSH 05/20/18 15:44 WBC RBC Hgb Hct MCV MCH MCHC RDW Plt Count MPV Absolute Neuts (auto) Total Counted Neutrophils % Neutrophils % (Manual) Band Neutrophils % Lymphocytes % Lymphocytes % (Manual) Monocytes % Monocytes % (Manual) Eosinophils % Basophils % Nucleated RBC % Metamyelocytes Toxic Granulation Dohle Bodies Platelet Comment PT with INR INR PTT (Actin FS) Anticoagulation Therapy No Result Required. Puncture Site No Result Required. ABG pH 7.41 ABG pCO2 at Pt Temp 38.3 ABG pO2 at Pt Temp 78.7 L ABG HCO3 23.8 ABG O2 Sat (Measured) 94.7 ABG O2 Content 18.1 ABG Base Excess -0.1 Graeme Test Positive VBG pH POC VBG pCO2 POC VBG pO2 Mixed VBG HCO3 Carboxyhemoglobin 1.9 Methemoglobin 1.6 H O2 Delivery Device Bipap Oxygen Flow Rate Yes Vent Mode No Result Required. Vent Rate No Result Required. Mechanical Rate No Result Required. PEEP Pressure Support Vent No Result Required. Sodium Potassium Chloride Carbon Dioxide Anion Gap BUN Creatinine Creat Clearance w eGFR Random Glucose Lactic Acid Calcium Total Bilirubin AST ALT Alkaline Phosphatase Troponin I Total Protein Albumin TSH CXR congestion, left basilar infiltrate EKG MAT 140s, no acute ST-T changes appreciated but limited given artefactual baseline ASSESSMENT AND PLAN: 67 yom with PMHx of CAD s/p CABG (2002), CHF (?systolic vs diastolic), active heavy smoker x35 years, COPD, HTN, HLD admitted with acute hypoxic respiratory failure. -Acute hypoxic respiratory failure likely from sepsis with LLL PNA/Suspected CHF exacerbation +/- COPD exacerbation -Chronic Heart failure, systolic vs diastolic -Multifocal Atrial tachycardia -Hyponatremia -Mild OLIMPIA, ?Sepsis -Tobacco abuse -CAD s/p CABG -HTN -HLD Plan: Vancomycin x 1, Zosyn/azithromycin. Blood/sputum cx. Urine PNA stuides. ID input. Volume status difficult to assess. Prior cardiac function, respiratory status, cXR concerning. Low threshold for pressors. Avoid further IVF. Suspect underlying systolic dysfunction. Trial lasix x 1, strict I/Os, Monitor Na levels/renal function. Check BNP. Cardiology consult. 2D echo. Solumedrol IV, nebs standing and prn. Coreg as tolerated. Continue statin. DVTPPX with heparin. Dispo admit to ICU. Low threshold for intubation if fails to improve Plan discussed with family at bedside in detail, all questions answered. Plan discussed with ICU and ED. Total critical care time spent 65 min.
[2018-05-20] MEDS: PANTOPRAZOLE SODIUM 40 MG VIAL IVPUSH SCH (16:30)
[2018-05-20] MEDS ORDERED: PANTOPRAZOLE SODIUM 40 MG/100 ML BAG IVPB ONE (16:30)
[2018-05-20] MEDS ORDERED: methylPREDNISolone NA SUCC 125 MG/2 ML VIAL ONE (16:30)
[2018-05-20] MEDS ORDERED: FUROSEMIDE 40 MG/4 ML INJECTABLE VIAL IVPUSH ONE ×2 (16:35→16:45)
[2018-05-20] MEDS ORDERED: ALBUTEROL SO4 0.083% IH SOL 2.5 MG/3 ML VIAL.NEB. NEB PRN (16:51)
--- NOTE | 2018-05-20 17:16 | HP ---
CHIEF COMPLAINT: SOB & leg weakness PCP: Dr. Cutler - note: pt's family states he is trying to change doctors because he changed insurance and Dr. Cutler is no longer in network for him HISTORY OF PRESENT ILLNESS: Note: pt on bipap and unable to speak clearly. History taken primarily from family Pt is a 67 y/o M with PMH significant for CAD s/p CABG (2002), CHF, COPD, HTN, HLD, EtOH abuse, Tobacco who was BIBA sent by family for weak legs and shortness of breath. Family state that pt has had intermittent debilitating leg weakness for the last month. Pt is able to ambulate and work normally, but develops episodes of leg weakness, lasting several days each, during which he cannot stand without bracing on a handrail, and then only barely. During these episodes, he is effectively confined to a chair and unable to work. He was last able to work on Tue. Family also state that today he has become increasingly short of breath over the last few days. ER course was notable for: (1) no leukocytosis, but absolute neutrophils 8.3, and monocytes 10. Na 131, AG 18, BUN 22 (2) CXR with fluid &/or consolidation (3) Vanc, Zosyn, NS, Ativan, Bipap Recent Travel: PAST MEDICAL HISTORY: CAD s/p CABG (2002), CHF, COPD, HTN, HLD, EtOH abuse, Tobacco PAST SURGICAL HISTORY: CABG 2002 Social History: Smoking: active. 1/2ppd since teenager Alcohol: active. 1L gin every 3 days Drugs: denies Family History: HTN Allergies No Known Allergies Allergy (Verified 05/20/18 11:37) HOME MEDICATIONS: Home Medications Medication Instructions Recorded Allopurinol [Zyloprim -] 300 mg PO DAILY 05/20/18 Carvedilol [Coreg -] 6.25 mg PO BID 05/20/18 Furosemide [Lasix -] 40 mg PO DAILY 05/20/18 Ibuprofen [Motrin -] 600 mg PO TID PRN 05/20/18 Multivit-Min/FA/Lycopen/Lutein 1 each PO DAILY 05/20/18 [Centrum Silver Tablet] Simvastatin [Zocor -] 20 mg PO HS 05/20/18 predniSONE [Deltasone -] 1 mg PO QID 05/20/18 REVIEW OF SYSTEMS CONSTITUTIONAL: generalized weakness Absent: fever, chills, diaphoresis, , malaise, loss of appetite, weight change HEENT: Absent: rhinorrhea, nasal congestion, throat pain, throat swelling, difficulty swallowing, mouth swelling, ear pain, eye pain, visual changes CARDIOVASCULAR: Absent: chest pain, syncope, palpitations, irregular heart rate, lightheadedness , peripheral edema RESPIRATORY: shortness of breath, dyspnea Absent: cough, orthopnea, wheezing, stridor, hemoptysis GASTROINTESTINAL: Absent: abdominal pain, abdominal distension, nausea, vomiting, diarrhea, constipation, melena, hematochezia GENITOURINARY: Absent: dysuria, frequency, urgency, hesitancy, hematuria, flank pain, genital pain MUSCULOSKELETAL: Absent: myalgia, arthralgia, joint swelling, back pain, neck pain SKIN: Absent: rash, itching, pallor HEMATOLOGIC/IMMUNOLOGIC: Absent: easy bleeding, easy bruising, lymphadenopathy, frequent infections ENDOCRINE: Absent: unexplained weight gain, unexplained weight loss, heat intolerance, cold intolerance NEUROLOGIC: focal weakness Absent: headache, or paresthesias, dizziness, unsteady gait, seizure, mental status changes, bladder or bowel incontinence PSYCHIATRIC: Absent: anxiety, depression, suicidal or homicidal ideation, hallucinations. PHYSICAL EXAMINATION Vital Signs - 24 hr 05/20/18 05/20/18 05/20/18 11:33 11:50 12:10 Temperature 98.1 F 101.6 F H Pulse Rate 75 133 H Pulse Rate [ Apical] Respiratory 18 30 H 28 H Rate Blood Pressure 149/47 Blood Pressure [Left Arm] O2 Sat by Pulse 90 L 85 L 92 L Oximetry (%) 05/20/18 05/20/18 05/20/18 12:30 13:00 14:40 Temperature 100.3 F H Pulse Rate Pulse Rate [ 96 H Apical] Respiratory 30 H Rate Blood Pressure Blood Pressure 106/80 [Left Arm] O2 Sat by Pulse 96 92 L 98 Oximetry (%) 05/20/18 16:10 Temperature Pulse Rate Pulse Rate [ 102 H Apical] Respiratory 30 H Rate Blood Pressure Blood Pressure 103/77 [Left Arm] O2 Sat by Pulse 98 Oximetry (%) Gen: Resp distress, NIPPV in place, diaphoretic with damp gown kong on his back HEENT: NCAT, EOMI Neck: supple no jvd Cardio: limited exam. RRR, normal s1s2, no m/r/g appreciated Pulm: limited exam. R basilar ronchi Abd: soft, normal bs, nondistended, nontender Ext: no edema 1+ pulses Neuro: limited exam. moves all 4 extremities spontaneously and against resistance. No focal deficits noted. No droop apparent. sensation intact. Laboratory Results - last 24 hr 05/20/18 05/20/18 05/20/18 12:00 12:00 12:00 WBC 10.0 RBC 4.42 Hgb 14.1 Hct 41.8 MCV 94.5 MCH 31.9 MCHC 33.7 RDW 14.8 Plt Count 174 D MPV 10.2 Absolute Neuts (auto) 8.3 H Total Counted 100 Neutrophils % 83.5 H D Neutrophils % (Manual) 76.0 Band Neutrophils % 10.0 Lymphocytes % 4.8 L D Lymphocytes % (Manual) 6.0 L Monocytes % 10.6 H Monocytes % (Manual) 7 Eosinophils % 0.4 Basophils % 0.7 Nucleated RBC % 0 Metamyelocytes 1 Toxic Granulation 1+ Dohle Bodies 1+ Platelet Comment A PT with INR 11.70 INR 1.04 PTT (Actin FS) 31.6 Anticoagulation Therapy Puncture Site ABG pH ABG pCO2 at Pt Temp ABG pO2 at Pt Temp ABG HCO3 ABG O2 Sat (Measured) ABG O2 Content ABG Base Excess Graeme Test VBG pH POC VBG pCO2 POC VBG pO2 Mixed VBG HCO3 Carboxyhemoglobin Methemoglobin O2 Delivery Device Oxygen Flow Rate Vent Mode Vent Rate Mechanical Rate PEEP Pressure Support Vent Sodium 131 L Potassium 4.2 Chloride 90 L Carbon Dioxide 23 D Anion Gap 18 H BUN 22 H Creatinine 1.2 Creat Clearance w eGFR > 60 Random Glucose 97 Lactic Acid Calcium 8.1 L Total Bilirubin 1.7 H AST 143 H D ALT 57 D Alkaline Phosphatase 131 H Troponin I < 0.02 Total Protein 6.9 Albumin 2.3 L TSH 0.55 D 05/20/18 05/20/18 05/20/18 12:00 12:20 14:04 WBC RBC Hgb Hct MCV MCH MCHC RDW Plt Count MPV Absolute Neuts (auto) Total Counted Neutrophils % Neutrophils % (Manual) Band Neutrophils % Lymphocytes % Lymphocytes % (Manual) Monocytes % Monocytes % (Manual) Eosinophils % Basophils % Nucleated RBC % Metamyelocytes Toxic Granulation Dohle Bodies Platelet Comment PT with INR INR PTT (Actin FS) Anticoagulation Therapy Puncture Site ABG pH ABG pCO2 at Pt Temp ABG pO2 at Pt Temp ABG HCO3 ABG O2 Sat (Measured) ABG O2 Content ABG Base Excess Graeme Test VBG pH 7.36 POC VBG pCO2 42.9 POC VBG pO2 31.6 Mixed VBG HCO3 23.5 Carboxyhemoglobin Methemoglobin O2 Delivery Device Oxygen Flow Rate Vent Mode Vent Rate Mechanical Rate PEEP Pressure Support Vent Sodium Potassium Chloride Carbon Dioxide Anion Gap BUN Creatinine Creat Clearance w eGFR Random Glucose Lactic Acid 3.6 H* 1.8 Calcium Total Bilirubin AST ALT Alkaline Phosphatase Troponin I Total Protein Albumin TSH 05/20/18 15:44 WBC RBC Hgb Hct MCV MCH MCHC RDW Plt Count MPV Absolute Neuts (auto) Total Counted Neutrophils % Neutrophils % (Manual) Band Neutrophils % Lymphocytes % Lymphocytes % (Manual) Monocytes % Monocytes % (Manual) Eosinophils % Basophils % Nucleated RBC % Metamyelocytes Toxic Granulation Dohle Bodies Platelet Comment PT with INR INR PTT (Actin FS) Anticoagulation Therapy No Result Required. Puncture Site No Result Required. ABG pH 7.41 ABG pCO2 at Pt Temp 38.3 ABG pO2 at Pt Temp 78.7 L ABG HCO3 23.8 ABG O2 Sat (Measured) 94.7 ABG O2 Content 18.1 ABG Base Excess -0.1 Graeme Test Positive VBG pH POC VBG pCO2 POC VBG pO2 Mixed VBG HCO3 Carboxyhemoglobin 1.9 Methemoglobin 1.6 H O2 Delivery Device Bipap Oxygen Flow Rate Yes Vent Mode No Result Required. Vent Rate No Result Required. Mechanical Rate No Result Required. PEEP Pressure Support Vent No Result Required. Sodium Potassium Chloride Carbon Dioxide Anion Gap BUN Creatinine Creat Clearance w eGFR Random Glucose Lactic Acid Calcium Total Bilirubin AST ALT Alkaline Phosphatase Troponin I Total Protein Albumin TSH ASSESSMENT/PLAN: Pt is a 67 y/o M with PMH CAD s/p CABG (2002), CHF, COPD, HTN, HLD, EtOH abuse, Tobacco use who presented to ED because of weakness and SOB. #SOB/resp distress -likely 2/2 PNA vs Pulm edema -on NIPPV -transfer to ICU -reps rate ~ 40. May require intubation if continues to be unstable -Vanc/Zosyn/Azithro -PT -Echo -ID consult -ICU -Cardio consult -Solu-Medrol 60 Q6H -Duoneb Q4H -Ventolin #CHF -Echo -hold lasix #HTN -holding antihypertensives #HLD -c/w home lipitor 20 HS #COPD -solu-medrol #FEN -not on fluid -Na 131 -NPO #PPx Hep SubQ #Dispo -ICU Keanu Arriola MD PGY-2 IM Visit type - Emergency Visit Emergency Visit: Yes ED Registration Date: 05/20/18 Care time: The patient presented to the Emergency Department on the above date and was hospitalized for further evaluation of their emergent condition. - New Patient This patient is new to me today: Yes Date on this admission: 05/20/18 - Critical Care Critical Care patient: Yes Total Critical Care Time (in minutes): 45 Critical Care Statement: The care of this patient involved high complexity decision making to prevent further life threatening deterioration of the patient 's condition and/or to evaluate & treat vital organ system(s) failure or risk of failure. Hospitalist Screening - Colonoscopy Questionnaire Colonoscopy Questionnaire: Colonoscopy Questionnaire - Patient: 50 - 75 years old and never had a screening colonoscopy: Unknown History of colon or rectal polyps, or CA: Unknown History of IBD, Crohn's disease or UC: Unknown History of abdominal radiation therapy as a child: Unknown - Relative: 1 with colon or rectal CA, or polyps at age 60 or younger: Unknown Colon or rectal CA diagnosed at age 45 or younger: Unknown Multiple relatives with colon or rectal CA: Unknown - Outcome: Screening Result: Negative Screen
[2018-05-20] MEDS ORDERED: METOPROLOL TARTRATE 5 MG/5 ML VIAL IVPUSH PRN (17:26)
[2018-05-20] MEDS: AZITHROMYCIN IVPB 500 MG in DEXTROSE 5%-WATER - 250 ML IVPB SCH (17:30)
[2018-05-20] MEDS ORDERED: AZITHROMYCIN IVPB 250 ML IVPB ONE (17:32)
[2018-05-20] MEDS ORDERED: PIPERACILLIN/TAZOB 3.375 GM 3.375 GM in DEXTROSE 5%-WATER 100 ML IVPB SCH (18:00)
[2018-05-20] MEDS: ALBUTEROL SO4 2.5/IPRATROPIUM 0.5 INH SOL 3 ML VIAL.NEB. NEB SCH ×2 (18:29→22:00)
[2018-05-20 18:59] LABS: URINE APPEARANCE CLOUDY; URINE BILIRUBIN NEGATIVE (<2.0 mg/dL); URINE COLOR AMBER; URINE GLUCOSE (UA) NEGATIVE (NEGATIVE); URINE KETONE TRACE (NEGATIVE); URINE LEUK ESTERASE NEGATIVE (NEGATIVE); URINE NITRITE NEGATIVE (NEGATIVE); URINE UROBILINOGEN 4.0 E.U/dl mg/dL (0.2-1.0)
[2018-05-20 19:02] LABS: URINE PROTEIN 3+ (NEGATIVE)
[2018-05-20] MEDS ORDERED: PIPERACILLIN/TAZOBACTAM 3.375 GM VIAL IVPB ONE ×2 (19:03→21:16)
[2018-05-20] MEDS ORDERED: DEXTROSE 5%-WATER 100 ML IVPB ONE ×2 (19:04→21:16)
[2018-05-20 19:05] LABS: EPI CELLS RARE /HPF (FEW); URINE BACTERIA RARE /hpf (NONE SEEN); URINE MUCUS RARE
[2018-05-20] MEDS: PIPERACILLIN/TAZOB 3.375 GM 3.375 GM in DEXTROSE 5%-WATER 100 ML IVPB SCH (19:06)
[2018-05-20] MEDS ORDERED: DEXTROSE 5% IVPB ONE (21:00)
[2018-05-20] MEDS ORDERED: WATER IVPB ONE (21:00)
[2018-05-20] MEDS ORDERED: PIPERACILLIN IVPB ONE (21:00)
[2018-05-20] MEDS ORDERED: PIPERACILLIN IVPB SCH (21:00)
[2018-05-20] MEDS ORDERED: DEXTROSE 5% IVPB SCH (21:00)
[2018-05-20] MEDS ORDERED: WATER IVPB SCH (21:00)
[2018-05-20] MEDS ORDERED: TAZOB IVPB ONE (21:00)
[2018-05-20] MEDS ORDERED: TAZOB IVPB SCH (21:00)
[2018-05-20] MEDS ORDERED: PIPERACILLIN/TAZOB 3.375 GM 3.375 GM in DEXTROSE 5%-WATER - 50 ML IVPB SCH (21:00)
[2018-05-20] MEDS: ATORVASTATIN CA 10 MG TABLET (FP) PO SCH (21:20)
[2018-05-20] MEDS: CARVEDILOL 6.25 MG TABLET (FP) PO SCH (21:20)
[2018-05-20] MEDS: methylPREDNISolone NA SUCC 125 MG/2 ML VIAL IVPUSH SCH (21:20)
[2018-05-20] MEDS: HEPARIN NA (PORCINE) 5,000 UNITS/ML 1ML VIAL SQ SCH (21:20)
[2018-05-20] MEDS: MUPIROCIN 2% TOPICAL OINTMENT FOR DECOLONIZATION NS SCH (21:22)
[2018-05-20] MEDS: CHLORHEXIDINE GLUCONATE 4% CLEANSER FOR DECOLONIZATION TP SCH (21:22)
[2018-05-20] MEDS ORDERED: CHLORHEXIDINE GLUCONATE 4% CLEANSER FOR DECOLONIZATION TP SCH (22:00)
[2018-05-20] MEDS ORDERED: MUPIROCIN 2% TOPICAL OINTMENT FOR DECOLONIZATION NS SCH (22:00)
[2018-05-21] MEDS: VANCOMYCIN 1 GM PREMIX - 1 GM/200 ML BAG IVPB SCH ×2 (02:00→16:52)
[2018-05-21] MEDS: PIPERACILLIN/TAZOB 3.375 GM 3.375 GM in DEXTROSE 5%-WATER 100 ML IVPB SCH ×3 (02:00→18:16)
[2018-05-21] MEDS: methylPREDNISolone NA SUCC 125 MG/2 ML VIAL IVPUSH SCH ×4 (02:46→20:20)
[2018-05-21 05:44] LABS: BASO % 0.2 % (0-2.0); HEMATOCRIT 36.4 % (35.4-49); HEMOGLOBIN 12.4 GM/dL (11.7-16.9); LYMPH % 37.6 % (8-40); MCH 31.9 pg (25.7-33.7); MCHC 34.2 g/dl (32.0-35.9); MEAN CELL VOLUME 93.3 fl (80-96); MONO % 8.2 % (3.8-10.2); RDW 14.8 % (11.9-15.9); WHITE BLOOD COUNT 10.2 K/mm3 (4.0-10.0)
[2018-05-21 06:04] LABS: ALBUMIN 1.6 g/dl (3.4-5.0); ANION GAP 12 MMOL/L (8-16); BLOOD UREA NITROGEN 30 mg/dL (7-18); CALCIUM 7.1 mg/dL (8.5-10.1); CHLORIDE 96 mmol/L (98-107); CO2 25 mmol/L (21-32); GLUCOSE,RANDOM 218 mg/dL (74-106); MAGNESIUM 1.8 mg/dL (1.8-2.4); PHOSPHOROUS 2.4 mg/dL (2.5-4.9); POTASSIUM 3.3 mmol/L (3.5-5.1); SGOT/AST 113 U/L (15-37); SGPT/ALT 45 U/L (12-78); SODIUM 133 mmol/L (136-145)
[2018-05-21 06:06] LABS: ALK PHOS 92 U/L (45-117); BILIRUBIN,TOTAL 1.5 mg/dL (0.2-1.0); TOT PROT 5.3 g/dl (6.4-8.2)
[2018-05-21] MEDS: ALBUTEROL SO4 2.5/IPRATROPIUM 0.5 INH SOL 3 ML VIAL.NEB. NEB SCH ×5 (06:11→22:59)
[2018-05-21] MEDS: HEPARIN NA (PORCINE) 5,000 UNITS/ML 1ML VIAL SQ SCH ×3 (06:32→21:33)
[2018-05-21] MEDS ORDERED: NAPH,MB-DB/K PH,MBDB POWDER PACKET PO ONE (07:29)
[2018-05-21] MEDS ORDERED: POTASSIUM CHLORIDE TABS 20 MEQ TABLET.ER (FP) PO ONE (07:29)
--- NOTE | 2018-05-21 08:43 | CON.CARD ---
Consult Consult Specialty:: cardiology Reason for Consultation:: shortness of breath; hx CABG - History of Present Illness Chief Complaint: Pt on Bipap; moves all extremities on request History of Present Illness: Patient is a 67 black man with history of CAD s/p CABG (denies hx DC), etoh abuse (drinks 1/3 bottle of gin per day; last drink ?2 days ago), current tobacco abuse (and for many years at 1/2-1 ppd), HTN, HLD, here today complaining of shortness of breath for the past 4 days. Patient states that he has chest pain in both sides when he takes a deep breath. Patient states that he noticed his eyes were proptotic starting this morning. Denies history of thyroid problems. Last drink was yesterday. Daughter endorses tactile fever. Denies history of blood clots. Denies leg swelling. - History Source History Provided By: Family Member, Medical Record Limitations to Obtaining History: Poor Historian (family does not know all details of pt's health) - Past Medical History Cardio/Vascular: Yes: CAD [place]s/p CAB[place] [facility] [place]ctions. 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 History of Recent Travel: No Home Medications - Allergies Allergies/Adverse Reactions: Allergies Allergy/AdvReac Type Severity Reaction Status Date / Time No Known Allergies Allergy Verified 05/20/18 11:37 - Home Medications Home Medications: Ambulatory Orders Allopurinol [Zyloprim -] 300 mg PO DAILY 05/20/18 Carvedilol [Coreg -] 6.25 mg PO BID 05/20/18 Furosemide [Lasix -] 40 mg PO DAILY 05/20/18 Ibuprofen [Motrin -] 600 mg PO TID PRN 05/20/18 Multivit-Min/FA/Lycopen/Lutein [Centrum Silver Tablet] 1 each PO DAILY 05/20/18 Simvastatin [Zocor -] 20 mg PO HS 05/20/18 predniSONE [Deltasone -] 1 mg PO QID 05/20/18 Family Disease History - Family Disease History Family Disease History: Heart Disease: Mother ( DC age 52), Other: Father ( CVA age 54) Review of Systems - Review of Systems Constitutional: reports: Weakness Eyes: reports: No Symptoms HENT: reports: No Symptoms Neck: reports: No Symptoms Cardiovascular: reports: Chest Pain, Shortness of Breath Respiratory: reports: SOB Gastrointestinal: reports: No Symptoms Musculoskeletal: reports: Muscle Weakness Neurological: reports: Unsteady Gait, Weakness Psychiatric: reports: Other (addictions) - Risk Factors Known Risk Factors: Yes: Age, Gender, Hypercholesterolemia, Hypertension, Physical Inactivity, Race, Smoking, Other (CABG; ? hx valve replacement) Vital Signs: Vital Signs Temperature 98.6 F 05/21/18 02:00 Pulse Rate 72 05/21/18 08:00 Respiratory Rate 28 H 05/21/18 08:00 Blood Pressure 85/67 05/21/18 08:00 O2 Sat by Pulse Oximetry (%) 98 05/20/18 21:30 Constitutional: Yes: Anxious Eyes: Yes: WNL HENT: Yes: WNL Neck: Yes: Decreased ROM Respiratory: Yes: Tachypnea Gastrointestinal: Yes: Soft Cardiovascular: Yes: Pulse Irregular JVD: Yes Carotid Bruit: No PMI: Displaced Heart Sounds: Yes: S1, S2 Murmur: Yes: Systolic Murmur, Grade 3 Musculoskeletal: Yes: Muscle Weakness Extremities: Yes: Cool Edema: No Peripheral Pulses WNL: No Peripheral Pulses: 1+ Left Doralis Pedis, 1+ Right Dorsalis Pedis Integumentary: Yes: WNL Neurological: Yes: Alert, Oriented, Weakness Psychiatric: Yes: Alert, Oriented - Other Data Labs, Other Data: CBC, BMP 05/21/18 05:10 05/21/18 05:10 INR, PTT INR 1.04 (0.83-1.09) 05/20/18 12:00 Troponin, BNP 05/20/18 05/20/18 05/21/18 12:00 18:35 05:10 Troponin I < 0.02 < 0.02 B-Natriuretic Peptide Cancelled Troponin, BNP 05/20/18 05/20/18 05/21/18 12:00 18:35 05:10 Troponin I < 0.02 < 0.02 B-Natriuretic Peptide Cancelled Echo: Pending Imaging - Results Chest X-ray: Image Reviewed (extensive CHF:) Problem List - Problems (1) CHF (congestive heart failure) Assessment/Plan: +JVD; [employer] CHF on CXR BNP pending (was 2,700 several months ago, when admitted here for leg weakness that has again been worsening lately). On carvedilol. Furosemide IV prn. F/u ECHO for LVEF, wall motion, valve status (CABG; ? hx valve replacement). TNI seirally. Lipids. Code(s): I50.9 - HEART FAILURE, UNSPECIFIED (2) Pneumonia Assessment/Plan: febrile earler. F/u with waste specialist, ID. Code(s): J18.9 - PNEUMONIA, UNSPECIFIED ORGANISM (3) HTN (hypertension) Code(s): I10 - ESSENTIAL (PRIMARY) HYPERTENSION (4) Hx of CABG Assessment/Plan: f/u records ECHO for LVEF, regional wall motion, valve status Code(s): Z95.1 - PRESENCE OF AORTOCORONARY BYPASS GRAFT (5) Hypoalbuminemia Code(s): E88.09 - OTH DISORDERS OF PLASMA-PROTEIN METABOLISM, NEC (6) [place] cardiac risk >20% in next 10 years Assessment/Plan: coronary artery evaluation (stress MIBI) when stable Code(s): Z91.89 - OTH PERSONAL RISK FACTORS, NOT ELSEWHERE CLASSIFIED (7) Nicotine addiction Assessment/Plan: pt agress to start nicotine patch. Code(s): F17.200 - NICOTINE DEPENDENCE, UNSPECIFIED, UNCOMPLICATED (8) Elevated LFTs Code(s): R94.5 - ABNORMAL RESULTS OF LIVER FUNCTION STUDIES (9) Acute respiratory distress Assessment/Plan: Pt with acute CHF, ?PNA On BIpap. Code(s): R06.03 - ACUTE RESPIRATORY DISTRESS
[2018-05-21] MEDS ORDERED: DEXTROSE 5%-WATER 100 ML IVPB ONE ×2 (08:55→16:56)
[2018-05-21] MEDS ORDERED: PIPERACILLIN/TAZOBACTAM 3.375 GM VIAL IVPB ONE ×2 (08:55→16:56)
[2018-05-21] MEDS ORDERED: PT OWN MED DRAWER 7, Y5N ONE ×4 (08:56→16:51)
[2018-05-21] MEDS ORDERED: INSULIN (NOVOLOG MIX 70/30) 100 UNITS/ML MDV SQ ONE (08:57)
[2018-05-21] MEDS: ASPIRIN 81 MG CHEWABLE TABLETS PO SCH (09:18)
[2018-05-21] MEDS: ALLOPURINOL 100 MG TABLET (FP) PO SCH (09:19)
[2018-05-21] MEDS: CARVEDILOL 6.25 MG TABLET (FP) PO SCH ×2 (09:19→11:14)
[2018-05-21 09:49] LABS: URINE APPEARANCE SLCLOUDY; URINE BILIRUBIN NEGATIVE (<2.0 mg/dL); URINE GLUCOSE (UA) NEGATIVE (NEGATIVE); URINE KETONE TRACE (NEGATIVE); URINE LEUK ESTERASE NEGATIVE (NEGATIVE); URINE NITRITE NEGATIVE (NEGATIVE)
[2018-05-21 09:51] LABS: URINE COLOR DK YELLOW; URINE PROTEIN 1+ (NEGATIVE)
[2018-05-21] MEDS ORDERED: CARVEDILOL 6.25 MG TABLET (FP) PO SCH (10:00)
[2018-05-21 10:05] LABS: ANISOCYTOSIS 1+; MACROCYTOSIS 1+; PLATELET ESTIMATE DECREASED; TEAR DROP CELLS 1+
--- NOTE | 2018-05-21 10:08 | PN ---
Physical Exam: SUBJECTIVE: Patient seen and examined. Pt. endorses feeling better today. Pt. endorses having a cough that produces white sputum. Pt. denies chest pain, numbness or tingling in the extremities, or dizziness. Coreg not given as SBP was under 100. OBJECTIVE: Vital Signs Period Temp Pulse Resp BP Sys/Reyes Pulse Ox Last 24 Hr 98.1 F-101.6 F 68-133 18-38 85-149/47-82 85-99 GENERAL: The patient is awake, alert, and fully oriented, resting in bed in no acute distress. EYES: slight proptosis, sclera beige, conjunctiva clear. No ptosis. ENT: moist mucous membranes. LUNGS: Ronchi and diffuse mild crackles, no accessory muscle use. HEART: Regular rate and rhythm, S1, S2 without murmur ABDOMEN: Soft, nontender, nondistended, normoactive bowel sounds, no guarding, no rebound EXTREMITIES: 1+ dorsal pedal pulses, all extremities cool to touch, capillary refill less than 2 seconds, no edema. PSYCH: Normal mood, normal affect. SKIN: Warm, dry, Laboratory Results - last 24 hr 05/20/18 05/20/18 05/20/18 12:00 12:00 12:00 WBC 10.0 RBC 4.42 Hgb 14.1 Hct 41.8 MCV 94.5 MCH 31.9 MCHC 33.7 RDW 14.8 Plt Count 174 D MPV 10.2 Absolute Neuts (auto) 8.3 H Total Counted 100 Neutrophils % 83.5 H D Neutrophils % (Manual) 76.0 Band Neutrophils % 10.0 Lymphocytes % 4.8 L D Lymphocytes % (Manual) 6.0 L Monocytes % 10.6 H Monocytes % (Manual) 7 Eosinophils % 0.4 Basophils % 0.7 Nucleated RBC % 0 Metamyelocytes 1 Toxic Granulation 1+ Dohle Bodies 1+ Platelet Comment A PT with INR 11.70 INR 1.04 PTT (Actin FS) 31.6 Anticoagulation Therapy Puncture Site ABG pH ABG pCO2 at Pt Temp ABG pO2 at Pt Temp ABG HCO3 ABG O2 Sat (Measured) ABG O2 Content ABG Base Excess Graeme Test VBG pH POC VBG pCO2 POC VBG pO2 Mixed VBG HCO3 Carboxyhemoglobin Methemoglobin O2 Delivery Device Oxygen Flow Rate Vent Mode Vent Rate Mechanical Rate PEEP Pressure Support Vent Sodium 131 L Potassium 4.2 Chloride 90 L Carbon Dioxide 23 D Anion Gap 18 H BUN 22 H Creatinine 1.2 Creat Clearance w eGFR > 60 Random Glucose 97 Lactic Acid Calcium 8.1 L Phosphorus Magnesium Total Bilirubin 1.7 H AST 143 H D ALT 57 D Alkaline Phosphatase 131 H Creatine Kinase Troponin I < 0.02 B-Natriuretic Peptide Total Protein 6.9 Albumin 2.3 L TSH 0.55 D Urine Color Urine Appearance Urine pH Ur Specific Point Clear Urine Protein Urine Glucose (UA) Urine Ketones Urine Blood Urine Nitrite Urine Bilirubin Urine Urobilinogen Ur Leukocyte Esterase Urine WBC (Auto) Urine RBC (Auto) Ur Epithelial Cells Urine Bacteria Urine Mucus Alcohol, Quantitative HIV 1&2 Antibody Screen HIV P24 Antigen 05/20/18 05/20/18 05/20/18 12:00 12:20 14:04 WBC RBC Hgb Hct MCV MCH MCHC RDW Plt Count MPV Absolute Neuts (auto) Total Counted Neutrophils % Neutrophils % (Manual) Band Neutrophils % Lymphocytes % Lymphocytes % (Manual) Monocytes % Monocytes % (Manual) Eosinophils % Basophils % Nucleated RBC % Metamyelocytes Toxic Granulation Dohle Bodies Platelet Comment PT with INR INR PTT (Actin FS) Anticoagulation Therapy Puncture Site ABG pH ABG pCO2 at Pt Temp ABG pO2 at Pt Temp ABG HCO3 ABG O2 Sat (Measured) ABG O2 Content ABG Base Excess Graeme Test VBG pH 7.36 POC VBG pCO2 42.9 POC VBG pO2 31.6 Mixed VBG HCO3 23.5 Carboxyhemoglobin Methemoglobin O2 Delivery Device Oxygen Flow Rate Vent Mode Vent Rate Mechanical Rate PEEP Pressure Support Vent Sodium Potassium Chloride Carbon Dioxide Anion Gap BUN Creatinine Creat Clearance w eGFR Random Glucose Lactic Acid 3.6 H* 1.8 Calcium Phosphorus Magnesium Total Bilirubin AST ALT Alkaline Phosphatase Creatine Kinase Troponin I B-Natriuretic Peptide Total Protein Albumin TSH Urine Color Urine Appearance Urine pH Ur Specific [place] Urine Protein Urine Glucose (UA) Urine Ketones Urine Blood Urine Nitrite Urine Bilirubin Urine Urobilinogen Ur Leukocyte Esterase Urine WBC (Auto) Urine RBC (Auto) Ur Epithelial Cells Urine Bacteria Urine Mucus Alcohol, Quantitative HIV 1&2 Antibody Screen HIV P24 Antigen 05/20/18 05/20/18 05/20/18 15:44 18:00 18:35 WBC RBC Hgb Hct MCV MCH MCHC RDW Plt Count MPV Absolute Neuts (auto) Total Counted Neutrophils % Neutrophils % (Manual) Band Neutrophils % Lymphocytes % Lymphocytes % (Manual) Monocytes % Monocytes % (Manual) Eosinophils % Basophils % Nucleated RBC % Metamyelocytes Toxic Granulation Dohle Bodies Platelet Comment PT with INR INR PTT (Actin FS) Anticoagulation Therapy No Result Required. Puncture Site No Result Required. ABG pH 7.41 ABG pCO2 at Pt Temp 38.3 ABG pO2 at Pt Temp 78.7 L ABG HCO3 23.8 ABG O2 Sat (Measured) 94.7 ABG O2 Content 18.1 ABG Base Excess -0.1 Graeme Test Positive VBG pH POC VBG pCO2 POC VBG pO2 Mixed VBG HCO3 Carboxyhemoglobin 1.9 Methemoglobin 1.6 H O2 Delivery Device Bipap Oxygen Flow Rate Yes Vent Mode No Result Required. Vent Rate No Result Required. Mechanical Rate No Result Required. PEEP Pressure Support Vent No Result Required. Sodium Potassium Chloride Carbon Dioxide Anion Gap BUN Creatinine Creat Clearance w eGFR Random Glucose Lactic Acid Calcium Phosphorus Magnesium Total Bilirubin AST ALT Alkaline Phosphatase Creatine Kinase Troponin I B-Natriuretic Peptide Total Protein Albumin TSH Urine Color Autumn Urine Appearance Cloudy Urine pH 5.0 D Ur Specific Point Clear 1.029 Urine Protein 3+ H D Urine Glucose (UA) Negative Urine Ketones Trace H Urine Blood 1+ H Urine Nitrite Negative Urine Bilirubin Negative Urine Urobilinogen 4.0 e.u/dl Ur Leukocyte Esterase Negative Urine WBC (Auto) 6 Urine RBC (Auto) 5 Ur Epithelial Cells Rare Urine Bacteria Rare Urine Mucus Rare Alcohol, Quantitative HIV 1&2 Antibody Screen Negative HIV P24 Antigen Negative 05/20/18 05/20/18 05/21/18 18:35 18:35 05:10 WBC 10.2 H RBC 3.90 L Hgb 12.4 Hct 36.4 MCV 93.3 MCH 31.9 MCHC 34.2 RDW 14.8 Plt Count MPV Absolute Neuts (auto) 5.5 Total Counted Neutrophils % 54.0 D Neutrophils % (Manual) Band Neutrophils % Lymphocytes % 37.6 D Lymphocytes % (Manual) Monocytes % 8.2 Monocytes % (Manual) Eosinophils % 0.0 D Basophils % 0.2 Nucleated RBC % 0 Metamyelocytes Toxic Granulation Dohle Bodies Platelet Comment PT with INR INR PTT (Actin FS) Anticoagulation Therapy Puncture Site ABG pH ABG pCO2 at Pt Temp ABG pO2 at Pt Temp ABG HCO3 ABG O2 Sat (Measured) ABG O2 Content ABG Base Excess Graeme Test VBG pH POC VBG pCO2 POC VBG pO2 Mixed VBG HCO3 Carboxyhemoglobin Methemoglobin O2 Delivery Device Oxygen Flow Rate Vent Mode Vent Rate Mechanical Rate PEEP Pressure Support Vent Sodium Potassium Chloride Carbon Dioxide Anion Gap BUN Creatinine Creat Clearance w eGFR Random Glucose Lactic Acid Calcium Phosphorus Magnesium Total Bilirubin AST ALT Alkaline Phosphatase Creatine Kinase 50 Troponin I < 0.02 B-Natriuretic Peptide Total Protein Albumin TSH Urine Color Urine Appearance Urine pH Ur Specific [place] Clear Urine Protein Urine Glucose (UA) Urine Ketones Urine Blood Urine Nitrite Urine Bilirubin Urine Urobilinogen Ur Leukocyte Esterase Urine WBC (Auto) Urine RBC (Auto) Ur Epithelial Cells Urine Bacteria Urine Mucus Alcohol, Quantitative < 5.0 HIV 1&2 Antibody Screen HIV P24 Antigen 05/21/18 05/21/18 05/21/18 05:10 05:10 08:50 WBC RBC Hgb Hct MCV MCH MCHC RDW Plt Count MPV Absolute Neuts (auto) Total Counted Neutrophils % Neutrophils % (Manual) Band Neutrophils % Lymphocytes % Lymphocytes % (Manual) Monocytes % Monocytes % (Manual) Eosinophils % Basophils % Nucleated RBC % Metamyelocytes Toxic Granulation Dohle Bodies Platelet Comment PT with INR INR PTT (Actin FS) Anticoagulation Therapy Puncture Site ABG pH ABG pCO2 at Pt Temp ABG pO2 at Pt Temp ABG HCO3 ABG O2 Sat (Measured) ABG O2 Content ABG Base Excess Graeme Test VBG pH POC VBG pCO2 POC VBG pO2 Mixed VBG HCO3 Carboxyhemoglobin Methemoglobin O2 Delivery Device Oxygen Flow Rate Vent Mode Vent Rate Mechanical Rate PEEP Pressure Support Vent Sodium 133 L Potassium 3.3 L D Chloride 96 L Carbon Dioxide 25 Anion Gap 12 BUN 30 H Creatinine 1.0 Creat Clearance w eGFR > 60 Random Glucose 218 H D Lactic Acid Calcium 7.1 L Phosphorus 2.4 L Magnesium 1.8 Total Bilirubin 1.5 H AST 113 H D ALT 45 D Alkaline Phosphatase 92 D Creatine Kinase Troponin I B-Natriuretic Peptide Cancelled Total Protein 5.3 L Albumin 1.6 L TSH Urine Color Dk yellow Urine Appearance Slcloudy Urine pH 5.0 Ur Specific Point Clear 1.026 Urine Protein 1+ H D Urine Glucose (UA) Negative Urine Ketones Trace H Urine Blood 1+ H Urine Nitrite Negative Urine Bilirubin Negative Urine Urobilinogen 2.0 Ur Leukocyte Esterase Negative Urine WBC (Auto) Urine RBC (Auto) Ur Epithelial Cells Urine Bacteria Urine Mucus Alcohol, Quantitative HIV 1&2 Antibody Screen HIV P24 Antigen Active Medications Current Medications Albuterol Sulfate (Ventolin 0.083% Nebulizer Soln -) 1 amp NEB Q2H PRN PRN Reason: SHORT OF BREATH/WHEEZING Albuterol/Ipratropium (Duoneb -) 1 amp NEB Q4HWA [facility] Last Admin: 05/21/18 06:11 Dose: 1 amp Allopurinol (Zyloprim -) 300 mg PO DAILY [facility] Last Admin: 05/21/18 09:19 Dose: 300 mg Aspirin (Asa -) 81 mg PO DAILY [facility] Last Admin: 05/21/18 09:18 Dose: 81 mg Atorvastatin Calcium (Lipitor -) 10 mg PO HS [facility] Last Admin: 05/20/18 21:20 Dose: 10 mg Carvedilol (Coreg -) 6.25 mg PO BID [facility] Last Admin: 05/21/18 09:19 Dose: 6.25 mg Chlorhexidine Gluconate (Hibiclens For Decolonization -) 1 applic TP HS [facility] Last Admin: 05/20/18 21:22 Dose: 1 applic Heparin Sodium (Porcine) (Heparin -) 5,000 unit SQ TID [facility] Last Admin: 05/21/18 06:32 Dose: 5,000 unit Azithromycin 500 mg/ Dextrose 250 mls @ 250 mls/hr IVPB DAILY [facility] Last Admin: 05/20/18 17:30 Dose: 250 mls/hr Piperacillin Sod/Tazobactam (Sod 3.375 gm/ Dextrose) 100 mls @ 200 mls/hr IVPB Q8H-IV [facility]; Protocol Last Admin: 05/21/18 09:00 Dose: 200 mls/hr Vancomycin HCl (Vancomycin 1 Gm Premix -) 1 gm in 200 mls @ 400 mls/hr IVPB BID @0200,1400 [facility]; Protocol Last Admin: 05/21/18 02:00 Dose: 400 mls/hr Methylprednisolone Sodium Succinate (Solu-Medrol -) 60 mg IVPUSH Q6H-IV [facility] Last Admin: 05/21/18 08:59 Dose: 60 mg Metoprolol Tartrate (Lopressor Injection -) 5 mg IVPUSH Q4H PRN PRN Reason: HYPERTENSION Mupirocin (Bactroban Ointment (For Decolonization) -) 1 applic NS BID [facility] Stop: 05/25/18 21:59 Last Admin: 05/20/18 21:22 Dose: 1 applic Nicotine (Nicoderm Patch -) 21 mg TD DAILY [facility] Pantoprazole Sodium (Protonix Iv) 40 mg IVPUSH DAILY [facility] Last Admin: 05/20/18 16:30 Dose: 40 mg ASSESSMENT/PLAN: Patient is a 67 y/o male with a history of alcohol abuse, CHF, CAD 2/p CABG, HTN , HLD who presents with sepsis 2/2 to pneumonia complicated by CHF exacerbation. #Neurology lethargic 2/2 to acute respiratory failure - monitor patient off BIPAP - Pt. currently on trial off Bipap - baseline A&Ox3, walks with cane #Cardiology Acute on Chronic CHF exacerbation - hold home lasix due to low BP, restart once patient is hemodynamically stable and lactic acid has normalized - CXR: new bilateral pulmonary and pleural changes left greater then right - troponin neg x 2 - lasix 20 mg IV push one time dose - BNP: [phone] - Cardiology consult appreciated- Stress MIBI when stable - f/u Echo #Pulmonology Acute hypoxic respiratory failure 2/2 to pneumonia complicated by COPD exacerbation - tachypnic, currently off BIPAP, on 40% Fio2 ventimask saturating at 95% - ABG on admission pH: 7.41 CO2: 38.3 O2: 78.7 - CXR showed haziness of left lung with obcsuring of the cardiac silhouette, some hilar congestion vs. infiltrates. - duonebs q4 - albuterol q2h prn - mehtylprednisolone 60 mg IV push Tobacco - started on nicotine patch 21mg #GI Transaminitis 2/2 to alcohol use vs sepsis - resolving - Ativan PRN - EtOH level: less than 5.0 - AST: 113 ALT: 45 - abd CT in September 2017: moderate hiatal hernia, diffuse fatty liver, hypodense splenic mass likely representing hemangioma alcohol abuse - f/u folate levels, thiamine level - prn ativan for DT's, has history of alcohol abuse with 1 L over the course of three days ppx - protonix 40 IV mg daily #Infectious Disease Pneumonia - CXR: new bilateral pulmonary and pleural changes left greater then right - Vanc 1 gm ( day 1) - Zosyn 4.475 q6h (day 1) - Azythromycin 500mg ( day 1) - lactic acidosis resolved - f/u CXR in am - f/u sputum cx, blood cx, legionella and pna antigen Suspected UTI -negative UA x2 #MSK degeneartive joint disesae - history: stable #FEN - hold fluids, lactic acid resolved - NPO with Ventimask - Jacob in place #Dispo: We will continue to follow the patient. Thank you for this consultative opportunity. home meds from patients daughter, not confirmed with pharmacy Visit type - Emergency Visit Emergency Visit: Yes ED Registration Date: 05/20/18 Care time: The patient presented to the Emergency Department on the above date and was hospitalized for further evaluation of their emergent condition. - New Patient This patient is new to me today: Yes Date on this admission: 05/21/18 - Critical Care Critical Care patient: No - Discharge Referral Referred to [facility] Med P.C.: No
[2018-05-21 10:29] LABS: YEAST FEW
[2018-05-21] MEDS ORDERED: INSULIN (NOVOLOG) ASPART 100 UNITS/ML 10ML VIAL ONE (10:40)
--- NOTE | 2018-05-21 10:49 | PN ---
Teaching Attending Note Name of Resident: Anup Sheikh ATTENDING PHYSICIAN STATEMENT I saw and evaluated the patient. I reviewed the resident's note and discussed the case with the resident. I agree with the resident's findings and plan as documented. SUBJECTIVE: Pt seen and examined in the ICU. States breathing slightly better. No chest pain. Fever curve trending down. OBJECTIVE: Vital Signs Period Temp Pulse Resp BP Sys/Reyes Pulse Ox Last 24 Hr 98.1 F-101.6 F 68-133 18-38 85-149/47-82 85-99 Intake & Output 05/18/18 05/19/18 05/20/18 05/21/18 23:59 23:59 23:59 23:59 Intake Total 550 250 Output Total 700 Balance 550 -450 Weight 62.397 kg 63.758 kg Gen: tachypneic at rest on ventimask Heart: RRR Lung: bibasilar rales Abd: soft, nontender Ext: no edema CBC, BMP 05/21/18 05:10 05/21/18 05:10 Active Medications Albuterol Sulfate (Ventolin 0.083% Nebulizer Soln -) 1 amp NEB Q2H PRN PRN Reason: SHORT OF BREATH/WHEEZING Albuterol/Ipratropium (Duoneb -) 1 amp NEB Q4HWA [facility] Last Admin: 05/21/18 10:30 Dose: 1 amp Allopurinol (Zyloprim -) 300 mg PO DAILY [facility] Last Admin: 05/21/18 09:19 Dose: 300 mg Aspirin (Asa -) 81 mg PO DAILY [facility] Last Admin: 05/21/18 09:18 Dose: 81 mg Atorvastatin Calcium (Lipitor -) 10 mg PO HS [facility] Last Admin: 05/20/18 21:20 Dose: 10 mg Carvedilol (Coreg -) 6.25 mg PO BID [facility] Last Admin: 05/21/18 09:19 Dose: 6.25 mg Chlorhexidine Gluconate (Hibiclens For Decolonization -) 1 applic TP HS [facility] Last Admin: 05/20/18 21:22 Dose: 1 applic Heparin Sodium (Porcine) (Heparin -) 5,000 unit SQ TID [facility] Last Admin: 05/21/18 06:32 Dose: 5,000 unit Azithromycin 500 mg/ Dextrose 250 mls @ 250 mls/hr IVPB DAILY [facility] Last Admin: 05/20/18 17:30 Dose: 250 mls/hr Piperacillin Sod/Tazobactam (Sod 3.375 gm/ Dextrose) 100 mls @ 200 mls/hr IVPB Q8H-IV [facility]; Protocol Last Admin: 05/21/18 09:00 Dose: 200 mls/hr Vancomycin HCl (Vancomycin 1 Gm Premix -) 1 gm in 200 mls @ 400 mls/hr IVPB BID @0200,1400 [facility]; Protocol Last Admin: 05/21/18 02:00 Dose: 400 mls/hr Methylprednisolone Sodium Succinate (Solu-Medrol -) 60 mg IVPUSH Q6H-IV [facility] Last Admin: 05/21/18 08:59 Dose: 60 mg Metoprolol Tartrate (Lopressor Injection -) 5 mg IVPUSH Q4H PRN PRN Reason: HYPERTENSION Mupirocin (Bactroban Ointment (For Decolonization) -) 1 applic NS BID [facility] Stop: 05/25/18 21:59 Last Admin: 05/20/18 21:22 Dose: 1 applic Nicotine (Nicoderm Patch -) 21 mg TD DAILY [facility] Pantoprazole Sodium (Protonix Iv) 40 mg IVPUSH DAILY [facility] Last Admin: 05/20/18 16:30 Dose: 40 mg ASSESSMENT AND PLAN: Acute Hypoxic Respiratory Failure Pneumonia r/o Pulmonary Edema COPD- r/o Exacerbation CAD s/p CABG HTN Hyperipidemia - continue antibiotics - f/u cultures - check BNP - echocardiogram - IVF boluses as needed to keep MAP >65 - agree with empiric medrol - inhaled bronchodilators - O2 to keep SpO2 >90% - BiPAP to assist in work of breathing - replete lytes - DVT prophylaxis - continue ICU monitoring for tenuous respiratory status critical care time spent in reviewing chart, evaluating patient and formulating plan 35 min
[2018-05-21 10:50] LABS: N-TERMINAL BNP 14169.83 pg/ml (5-125)
[2018-05-21] MEDS: AZITHROMYCIN IVPB 500 MG in DEXTROSE 5%-WATER - 250 ML IVPB SCH (11:22)
[2018-05-21] MEDS: NICOTINE 21 MG/24 HOURS TOPICAL PATCH TD SCH (12:18)
[2018-05-21] MEDS: PANTOPRAZOLE SODIUM 40 MG VIAL IVPUSH SCH (12:18)
[2018-05-21] MEDS: MUPIROCIN 2% TOPICAL OINTMENT FOR DECOLONIZATION NS SCH ×2 (12:23→22:00)
--- NOTE | 2018-05-21 13:10 | PN ---
Progress Note (short form) - Note Progress Note: ID Consult dictated Multilobar pneumonia Sepsis secondary to pneumonia Respiratory failure Exacerbation COPD CAD/CABG Pending cultures empiric zithromax/ zosyn/ vancomycin Prognosis guarded Discussed with family at bedside Critical care time 35min
[2018-05-21 13:35] LABS: MEAN PLT VOLUME 10.5 fl (7.5-11.1); PLATELET COUNT 181 K/MM3 (134-434)
--- NOTE | 2018-05-21 13:35 | CONS ---
INFECTIOUS DISEASE CONSULTATION DATE OF CONSULTATION: DATE OF DICTATION: 05/20/2018 HISTORY OF PRESENT ILLNESS: The patient is a 67-year-old male who is evaluated for respiratory failure and pneumonia. He was admitted to the hospital on May 20, 2018, with a 4-day history of worsening shortness of breath and profound weakness. He had been progressively more weak over the past 1 month with difficulty ambulating. Over the past 3-4 days he has increasing shortness of breath and cough productive of yellowish sputum. On presentation a chest x-ray was performed and showed bilateral infiltrates, left greater than right. Cultures were obtained and he was empirically treated with Zithromax, Zosyn and vancomycin. The patient is presently lethargic on BiPAP. He is unable to offer any additional details. He resides at home. He is a former smoker and history of ETOH. PAST MEDICAL HISTORY: Positive for coronary artery disease, congestive heart failure, hyperlipidemia, history of alcohol abuse. PAST SURGICAL HISTORY: Status post coronary artery bypass. ALLERGIES: No known allergies. MEDICATIONS: Include Zyloprim, Coreg, Lasix, Motrin, Zocor, prednisone. SOCIAL HISTORY: Resides at home with family members. Positive history of tobacco and alcohol. SYSTEMS REVIEW: Neurologic: Positive for lethargy. No loss of consciousness, seizure activity, focal weakness. Cardiac: Negative for chest pain or palpitations. Respiratory: As per HPI. Gastrointestinal: Negative vomiting or diarrhea. Genitourinary: Negative for urinary tract infection. LABORATORY DATA: White count 10.2, hematocrit 36.4, platelet count 124. BUN 30, creatinine 1.0. Urinalysis 2 white cells. Culture is pending. PHYSICAL EXAM: General: He is lethargic. He is in no acute distress on BiPAP mask. Vital Signs: Temperature 98.6. T-Max 101.6. Blood pressure 85/67. Pulse 72, regular. Respirations 20 per minute. HEENT: Sclerae anicteric. Heart: S1, S2. Lungs: Clear. Diminished breath sounds bilaterally. No rhonchi, rales or wheezing. Abdomen: Soft, distended, nontender. No palpable mass, rebound or rigidity. Extremities: Negative for edema. IMPRESSION: 1. Multilobar pneumonia. 2. Acute respiratory failure. 3. Exacerbation of chronic obstructive pulmonary disease. . PLAN: Await sepsis workup. Empiric antibiotic coverage with Zithromax, Zosyn and vancomycin. ICU monitoring. Prognosis is guarded. Case discussed with family members present at the time of examination. Critical care time spent 35 minutes. Thank you for your kind referral. BJ GONZALEZ M.D. [id number]
[2018-05-21] MEDS ORDERED: VANCOMYCIN 1,000 MG in DEXTROSE 5%-WATER - 250 ML IVPB ONE (15:30)
--- NOTE | 2018-05-21 16:01 | PN ---
Physical Exam: SUBJECTIVE: Patient seen and examined, on bipap, family at bedside, feels a litte better, no new chest pain, abdominal pain or new complaints. Still with c/ o weakness. OBJECTIVE: Vital Signs Period Temp Pulse Resp BP Sys/Reyes Pulse Ox Last 24 Hr 97.9 F-98.6 F 68-106 20-38 81-129/65-82 94-99 GENERAL: Opens eyes to voice, responds to family, answers questions, tachypneic , use of acessory muscles of respiration, eyes open, on bipap HEAD: Normal with no signs of trauma. EYES: Pupils equal, round and reactive to light, extraocular movements intact, sclera anicteric, conjunctiva clear. No lid lag. EARS, NOSE, THROAT: Ears normal, limited exam as currently on bipap NECK: soft, supple, +JVD LUNGS: bilateral rales, limited exam given current respiratory status and limited mobility HEART: S1S2 irregular, tachycardic ABDOMEN: Soft, distended (chronic per family), NT throughout, positive bowel sounds. UPPER EXTREMITIES: 2+ pulses, warm, well-perfused. No cyanosis. No clubbing. No peripheral edema. LOWER EXTREMITIES: 2+ pulses, warm, well-perfused. No calf tenderness. No peripheral edema. NEUROLOGICAL: facial symmetry, moves all extremities freely, symmetrically, otherwise limited PSYCHIATRIC: more awake today SKIN: Warm, dry, normal turgor, no rashes or lesions noted, normal capillary refill. Laboratory Results - last 24 hr 05/20/18 05/20/18 05/20/18 12:20 15:44 18:00 WBC RBC Hgb Hct MCV MCH MCHC RDW Plt Count MPV Absolute Neuts (auto) Neutrophils % Neutrophils % (Manual) Band Neutrophils % Lymphocytes % Lymphocytes % (Manual) Monocytes % Monocytes % (Manual) Eosinophils % Eosinophils % (Manual) Basophils % Basophils % (Manual) Myelocytes % (Man) Promyelocytes % (Man) Blast Cells % (Manual) Nucleated RBC % Metamyelocytes Hypochromia Platelet Estimate Polychromasia Poikilocytosis Anisocytosis Microcytosis Macrocytosis Tear Drop Cells Anticoagulation Therapy No Result Required. Puncture Site No Result Required. ABG pH 7.41 ABG pCO2 at Pt Temp 38.3 ABG pO2 at Pt Temp 78.7 L ABG HCO3 23.8 ABG O2 Sat (Measured) 94.7 ABG O2 Content 18.1 ABG Base Excess -0.1 Graeme Test Positive VBG pH 7.36 POC VBG pCO2 42.9 POC VBG pO2 31.6 Mixed VBG HCO3 23.5 Carboxyhemoglobin 1.9 Methemoglobin 1.6 H O2 Delivery Device Bipap Oxygen Flow Rate Yes Vent Mode No Result Required. Vent Rate No Result Required. Mechanical Rate No Result Required. PEEP Pressure Support Vent No Result Required. Sodium Potassium Chloride Carbon Dioxide Anion Gap BUN Creatinine Creat Clearance w eGFR Random Glucose Calcium Phosphorus Magnesium Total Bilirubin AST ALT Alkaline Phosphatase Creatine Kinase Troponin I B-Natriuretic Peptide Total Protein Albumin Urine Color [place] Urine Appearance Cloudy Urine pH 5.0 D Ur Specific [place] 1.029 Urine Protein 3+ H D Urine Glucose (UA) Negative Urine Ketones Trace H Urine Blood 1+ H Urine Nitrite Negative Urine Bilirubin Negative Urine Urobilinogen 4.0 e.u/dl Ur Leukocyte Esterase Negative Urine WBC (Auto) 6 Urine RBC (Auto) 5 Ur Epithelial Cells Rare Urine Bacteria Rare Urine Mucus Rare Urine Yeast Alcohol, Quantitative HIV 1&2 Antibody Screen HIV P24 Antigen 05/20/18 05/20/18 05/20/18 18:35 18:35 18:35 WBC RBC Hgb Hct MCV MCH MCHC RDW Plt Count MPV Absolute Neuts (auto) Neutrophils % Neutrophils % (Manual) Band Neutrophils % Lymphocytes % Lymphocytes % (Manual) Monocytes % Monocytes % (Manual) Eosinophils % Eosinophils % (Manual) Basophils % Basophils % (Manual) Myelocytes % (Man) Promyelocytes % (Man) Blast Cells % (Manual) Nucleated RBC % Metamyelocytes Hypochromia Platelet Estimate Polychromasia Poikilocytosis Anisocytosis Microcytosis Macrocytosis Tear Drop Cells Anticoagulation Therapy Puncture Site ABG pH ABG pCO2 at Pt Temp ABG pO2 at Pt Temp ABG HCO3 ABG O2 Sat (Measured) ABG O2 Content ABG Base Excess Graeme Test VBG pH POC VBG pCO2 POC VBG pO2 Mixed VBG HCO3 Carboxyhemoglobin Methemoglobin O2 Delivery Device Oxygen Flow Rate Vent Mode Vent Rate Mechanical Rate PEEP Pressure Support Vent Sodium Potassium Chloride Carbon Dioxide Anion Gap BUN Creatinine Creat Clearance w eGFR Random Glucose Calcium Phosphorus Magnesium Total Bilirubin AST ALT Alkaline Phosphatase Creatine Kinase 50 Troponin I < 0.02 B-Natriuretic Peptide Total Protein Albumin Urine Color Urine Appearance Urine pH Ur Specific [place] Urine Protein Urine Glucose (UA) Urine Ketones Urine Blood Urine Nitrite Urine Bilirubin Urine Urobilinogen Ur Leukocyte Esterase Urine WBC (Auto) Urine RBC (Auto) Ur Epithelial Cells Urine Bacteria Urine Mucus Urine Yeast Alcohol, Quantitative < 5.0 HIV 1&2 Antibody Screen Negative HIV P24 Antigen Negative 05/21/18 05/21/18 05/21/18 05:10 05:10 05:10 WBC 10.2 H RBC 3.90 L Hgb 12.4 Hct 36.4 MCV 93.3 MCH 31.9 MCHC 34.2 RDW 14.8 Plt Count 181 MPV 10.5 Absolute Neuts (auto) 5.5 Neutrophils % 54.0 D Neutrophils % (Manual) 68.7 Band Neutrophils % 22.2 Lymphocytes % 37.6 D Lymphocytes % (Manual) 4.1 L D Monocytes % 8.2 Monocytes % (Manual) 3 L Eosinophils % 0.0 D Eosinophils % (Manual) 0.0 Basophils % 0.2 Basophils % (Manual) 0.0 Myelocytes % (Man) 0 Promyelocytes % (Man) 0 Blast Cells % (Manual) 0 Nucleated RBC % 0 Metamyelocytes 0 D Hypochromia 0 Platelet Estimate Decreased Polychromasia 0 Poikilocytosis 1+ Anisocytosis 1+ Microcytosis 0 Macrocytosis 1+ Tear Drop Cells 1+ Anticoagulation Therapy Puncture Site ABG pH ABG pCO2 at Pt Temp ABG pO2 at Pt Temp ABG HCO3 ABG O2 Sat (Measured) ABG O2 Content ABG Base Excess Graeme Test VBG pH POC VBG pCO2 POC VBG pO2 Mixed VBG HCO3 Carboxyhemoglobin Methemoglobin O2 Delivery Device Oxygen Flow Rate Vent Mode Vent Rate Mechanical Rate PEEP Pressure Support Vent Sodium 133 L Potassium 3.3 L D Chloride 96 L Carbon Dioxide 25 Anion Gap 12 BUN 30 H Creatinine 1.0 Creat Clearance w eGFR > 60 Random Glucose 218 H D Calcium 7.1 L Phosphorus 2.4 L Magnesium 1.8 Total Bilirubin 1.5 H AST 113 H D ALT 45 D Alkaline Phosphatase 92 D Creatine Kinase Troponin I B-Natriuretic Peptide 40230.83 H Cancelled Total Protein 5.3 L Albumin 1.6 L Urine Color Urine Appearance Urine pH Ur Specific [place] Urine Protein Urine Glucose (UA) Urine Ketones Urine Blood Urine Nitrite Urine Bilirubin Urine Urobilinogen Ur Leukocyte Esterase Urine WBC (Auto) Urine RBC (Auto) Ur Epithelial Cells Urine Bacteria Urine Mucus Urine Yeast Alcohol, Quantitative HIV 1&2 Antibody Screen HIV P24 Antigen 05/21/18 08:50 WBC RBC Hgb Hct MCV MCH MCHC RDW Plt Count MPV Absolute Neuts (auto) Neutrophils % Neutrophils % (Manual) Band Neutrophils % Lymphocytes % Lymphocytes % (Manual) Monocytes % Monocytes % (Manual) Eosinophils % Eosinophils % (Manual) Basophils % Basophils % (Manual) Myelocytes % (Man) Promyelocytes % (Man) Blast Cells % (Manual) Nucleated RBC % Metamyelocytes Hypochromia Platelet Estimate Polychromasia Poikilocytosis Anisocytosis Microcytosis Macrocytosis Tear Drop Cells Anticoagulation Therapy Puncture Site ABG pH ABG pCO2 at Pt Temp ABG pO2 at Pt Temp ABG HCO3 ABG O2 Sat (Measured) ABG O2 Content ABG Base Excess Graeme Test VBG pH POC VBG pCO2 POC VBG pO2 Mixed VBG HCO3 Carboxyhemoglobin Methemoglobin O2 Delivery Device Oxygen Flow Rate Vent Mode Vent Rate Mechanical Rate PEEP Pressure Support Vent Sodium Potassium Chloride Carbon Dioxide Anion Gap BUN Creatinine Creat Clearance w eGFR Random Glucose Calcium Phosphorus Magnesium Total Bilirubin AST ALT Alkaline Phosphatase Creatine Kinase Troponin I B-Natriuretic Peptide Total Protein Albumin Urine Color Dk yellow Urine Appearance Slcloudy Urine pH 5.0 Ur Specific [place] 1.026 Urine Protein 1+ H D Urine Glucose (UA) Negative Urine Ketones Trace H Urine Blood 1+ H Urine Nitrite Negative Urine Bilirubin Negative Urine Urobilinogen 2.0 Ur Leukocyte Esterase Negative Urine WBC (Auto) 2 Urine RBC (Auto) 3 Ur Epithelial Cells Urine Bacteria Urine Mucus Urine Yeast Few Alcohol, Quantitative HIV 1&2 Antibody Screen HIV P24 Antigen Active Medications Generic Name Dose Route Start Last Admin Trade Name Francis PRN Reason Stop Dose Admin Albuterol Sulfate 1 amp 05/20/18 16:51 Ventolin 0.083% Nebulizer Soln - NEB Q2H PRN SHORT OF BREATH/WHEEZING Albuterol/Ipratropium 1 amp 05/20/18 18:00 05/21/18 13:31 Duoneb - NEB 1 amp Q4HWA ELLIE Administration Allopurinol 300 mg 05/21/18 10:00 05/21/18 09:19 Zyloprim - PO 300 mg DAILY ELLIE Administration Aspirin 81 mg 05/21/18 10:00 05/21/18 09:18 Asa - PO 81 mg DAILY ELLIE Administration Atorvastatin Calcium 10 mg 05/20/18 22:00 05/20/18 21:20 Lipitor - PO 10 mg HS ELLIE Administration Carvedilol 6.25 mg 05/20/18 22:00 05/21/18 11:14 Coreg - PO Not Given BID ELLIE Chlorhexidine Gluconate 1 applic 05/20/18 22:00 05/20/18 21:22 Hibiclens For Decolonization - TP 1 applic HS ELLIE Administration Heparin Sodium (Porcine) 5,000 unit 05/20/18 22:00 05/21/18 06:32 Heparin - SQ 5,000 unit TID ELLIE Administration Azithromycin 500 mg/ Dextrose 250 mls @ 250 mls/hr 05/20/18 16:30 05/21/18 11 :22 IVPB 250 mls/hr DAILY ELLIE Administration Piperacillin Sod/Tazobactam 100 mls @ 200 mls/hr 05/20/18 18:00 05/21/18 09: 00 Sod 3.375 gm/ Dextrose IVPB 200 mls/hr Q8H-IV ELLIE Administration Protocol Vancomycin HCl 1 gm in 200 mls @ 400 mls/hr 05/21/18 02:00 05/21/18 02:00 Vancomycin 1 Gm Premix - IVPB 400 mls/hr BID@0200,1400 ELLIE Administration Protocol Methylprednisolone Sodium Succinate 60 mg 05/20/18 21:00 05/21/18 08:59 Solu-Medrol - IVPUSH 60 mg Q6H-IV ELLIE Administration Metoprolol Tartrate 5 mg 05/20/18 17:26 Lopressor Injection - IVPUSH Q4H PRN HYPERTENSION Mupirocin 1 applic 05/20/18 22:00 05/21/18 12:23 Bactroban Ointment (For Decolonization) - NS 05/25/18 21:59 1 applic BID ELLIE Administration Nicotine 21 mg 05/21/18 10:00 05/21/18 12:18 Nicoderm Patch - TD 21 mg DAILY ELLIE Administration Pantoprazole Sodium 40 mg 05/20/18 15:45 05/21/18 12:18 Protonix Iv IVPUSH 40 mg DAILY ELLIE Administration ASSESSMENT/PLAN: 67 yom with PMHx of CAD s/p CABG (2002), CHF (?systolic vs diastolic), active heavy smoker x35 years, COPD, HTN, HLD admitted with acute hypoxic respiratory failure. -Acute hypoxic respiratory failure likely from sepsis with LLL PNA/Suspected CHF exacerbation +/- COPD exacerbation -Acute Congestive Heart failure, suspect systolic+/-diastolic -Multifocal Atrial tachycardia -Hyponatremia -Mild OLIMPIA, ?Sepsis -Tobacco abuse -CAD s/p CABG -HTN -HLD Plan: Continue Bipap suppport, low threshold for intubation. BNP Noted. Repeat CXR today. Discussed with Dr. Barnes, 2D echo done at bedside, follow up read. ?Dobutamine/lasix, discussed with Dr. Luna/Dr. Barnes, pending echo read. Zosyn/vancomycin/azithromycin day 2. Follow up PNA studies/Blood/sputum cx. ID input appreciated. s/p lasix 20 mg IV on admission, further limited by BP, strict I/Os, Monitor Na levels/renal function. Solumedrol IV, nebs standing and prn. Coreg as tolerated. Continue statin. DVTPPX with heparin. Dispo continue ICU level of care. Low threshold for intubation/pressors. Plan discussed with family at bedside in detail, all questions answered. Care co-ordinated with ICU, Cardiology, ICU team. Total critical care time spent 45 min. Visit type - Emergency Visit Emergency Visit: Yes ED Registration Date: 05/20/18 Care time: The patient presented to the Emergency Department on the above date and was hospitalized for further evaluation of their emergent condition. - New Patient This patient is new to me today: No - Critical Care Critical Care patient: Yes Total Critical Care Time (in minutes): 45 Critical Care Statement: The care of this patient involved high complexity decision making to prevent further life threatening deterioration of the patient 's condition and/or to evaluate & treat vital organ system(s) failure or risk of failure.
--- NOTE | 2018-05-21 19:12 | ECHO ---
Name: PAOLA SALEH Exam:Adult Echocardiogram Study Date: 05/21/2018 01:31 PM Age: 67 yrs Reason For Study: CHF Height: 71 in Weight: 140 lb BSA: 1.8 m2 MMode/2D Measurements & Calculations IVSd: 0.96 cm LA dimension: 4.2 cm LVIDd: 5.5 cm LVIDs: 4.7 cm LVPWd: 0.89 cm EDV(Teich): 148.3 ml TAPSE: 1.9 cm ESV(Teich): 100.8 ml RV S Chad: 7.1 cm/sec Doppler Measurements & Calculations MV E max chad: 89.3 cm/sec MV P1/2t max chad: 114.6 cm/sec MV A max chad: 43.4 cm/sec MV P1/2t: 94.3 msec MV E/A: 2.1 MV dec time: 0.27 sec MVA(P1/2t): 2.3 cm2 MV dec slope: 356.1 cm/sec2 Ao V2 max: 66.5 cm/sec LV V1 max P.1 mmHg Ao max P.8 mmHg LV V1 max: 53.2 cm/sec MR max chad: 332.6 cm/sec TR max chad: 257.3 cm/sec MR max P.3 mmHg TR max P.1 mmHg PI end-d chad: 80.3 cm/sec Med Peak E' Chad: 2.3 cm/sec Med E/e': 38.1 Lat Peak E' Chad: 3.4 cm/sec Lat E/e': 26.5 Left Ventricle The left ventricle is mildly dilated. Left ventricular systolic function is severely reduced. Ejectio n Fraction = 15-20%. The transmitral spectral Doppler flow pattern is suggestive of impaired LV relaxat ion. There is severe global hypokinesis of the left ventricle. Right Ventricle The right ventricular systolic function is mildly reduced. Atria The left atrium is severely dilated. The right atrium is moderately dilated. Mitral Valve There is mild to moderate mitral valve thickening. There is severe mitral regurgitation. Tricuspid Valve There is moderate to severe tricuspid regurgitation. Pericardium/Pleura There is no pericardial effusion. Interpretation Summary Left ventricular systolic function is severely reduced. Ejection Fraction = 15-20%. There is severe global hypokinesis of the left ventricle. The right ventricular systolic function is mildly reduced. The left atrium is severely dilated. The right atrium is moderately dilated. There is mild to moderate mitral valve thickening. There is severe mitral regurgitation. There is no pericardial effusion. Cm Barnes MD 05/21/2018 07:05 PM
--- NOTE | 2018-05-21 19:53 | PN ---
Progress Note, Physician Chief Complaint: Ot alert and orietned; denies chest pain; +dyspnea on minimal exertion History of Present Illness: Patient is a 67 black man with history of CAD s/p CABG (denies hx [place]), etoh abuse (drinks 1/3 bottle of gin per day; last drink ?2 days ago), current tobacco abuse (and for many years at 1/2-1 ppd), HTN, HLD, here today complaining of shortness of breath for the past 4 days. Patient states that he has chest pain in both sides when he takes a deep breath. Patient states that he noticed his eyes were proptotic starting this morning. Denies history of thyroid problems. Last drink was yesterday. Daughter endorses tactile fever. Denies history of blood clots. Denies leg swelling. - Current Medication List Current Medications: Active Medications Albuterol Sulfate (Ventolin 0.083% Nebulizer Soln -) 1 amp NEB Q2H PRN PRN Reason: SHORT OF BREATH/WHEEZING Albuterol/Ipratropium (Duoneb -) 1 amp NEB Q4HWA [facility] Last Admin: 05/21/18 18:32 Dose: 1 amp Allopurinol (Zyloprim -) 300 mg PO DAILY [facility] Last Admin: 05/21/18 09:19 Dose: 300 mg Aspirin (Asa -) 81 mg PO DAILY [facility] Last Admin: 05/21/18 09:18 Dose: 81 mg Atorvastatin Calcium (Lipitor -) 10 mg PO HS [facility] Last Admin: 05/20/18 21:20 Dose: 10 mg Chlorhexidine Gluconate (Hibiclens For Decolonization -) 1 applic TP HS [facility] Last Admin: 05/20/18 21:22 Dose: 1 applic Heparin Sodium (Porcine) (Heparin -) 5,000 unit SQ TID [facility] Last Admin: 05/21/18 16:57 Dose: 5,000 unit Azithromycin 500 mg/ Dextrose 250 mls @ 250 mls/hr IVPB DAILY [facility] Last Admin: 05/21/18 11:22 Dose: 250 mls/hr Piperacillin Sod/Tazobactam (Sod 3.375 gm/ Dextrose) 100 mls @ 200 mls/hr IVPB Q8H-IV ELLIE; Protocol Last Admin: 05/21/18 18:16 Dose: 200 mls/hr Vancomycin HCl (Vancomycin 1 Gm Premix -) 1 gm in 200 mls @ 400 mls/hr IVPB BID @0200,1400 ELLIE; Protocol Last Admin: 05/21/18 16:52 Dose: 400 mls/hr Dobutamine HCl/Dextrose (Dobutamine 250 Mg/D5w -) 250,000 mcg in 250 mls @ 0.956 mls/hr IV TITR ELLIE; Protocol Furosemide 100 mg/ Dextrose 50 mls @ 2.5 mls/hr IVPB TITR ELLIE; Protocol Methylprednisolone Sodium Succinate (Solu-Medrol -) 60 mg IVPUSH Q6H-IV ELLIE Last Admin: 05/21/18 16:43 Dose: 60 mg Metoprolol Tartrate (Lopressor Injection -) 5 mg IVPUSH Q4H PRN PRN Reason: HYPERTENSION Mupirocin (Bactroban Ointment (For Decolonization) -) 1 applic NS BID [facility] Stop: 05/25/18 21:59 Last Admin: 05/21/18 12:23 Dose: 1 applic Nicotine (Nicoderm Patch -) 21 mg TD DAILY [facility] Last Admin: 05/21/18 12:18 Dose: 21 mg Pantoprazole Sodium (Protonix Iv) 40 mg IVPUSH DAILY [facility] Last Admin: 05/21/18 12:18 Dose: 40 mg - Objective Vital Signs: Vital Signs Temperature 98 F 05/21/18 16:00 Pulse Rate 90 05/21/18 18:00 Respiratory Rate 34 H 05/21/18 18:00 Blood Pressure 84/65 05/21/18 18:00 O2 Sat by Pulse Oximetry (%) 91 L 05/21/18 18:31 Labs: CBC, BMP 05/21/18 05:10 05/21/18 05:10 INR, PTT INR 1.04 (0.83-1.09) 05/20/18 12:00 Problem List - Problems (1) CHF (congestive heart failure) Assessment/Plan: +JVD; remains dyspneic on minimal exertion. Hypotensive, but alert and oriented. BNP pending. TNI < 0.02 Await ECHO. Addendum: ECHO shows severely reduced LVEF, mildly diltated LV. Signioficant MR and TR. Plan: As discussed with ICU team, pt for IV dobutamine and IV furosemide Hold carvedilol; unable to start ACEI or ARB duet to hypotension. F/u Is and Os, electrolytes (replete K). Will need coronary artery evaluation and possible ICD. Code(s): I50.9 - HEART FAILURE, UNSPECIFIED (2) Pneumonia Code(s): J18.9 - PNEUMONIA, UNSPECIFIED ORGANISM (3) HTN (hypertension) Code(s): I10 - ESSENTIAL (PRIMARY) HYPERTENSION (4) Hx of CABG Code(s): Z95.1 - PRESENCE OF AORTOCORONARY BYPASS GRAFT (5) Hypoalbuminemia Code(s): E88.09 - OTH DISORDERS OF PLASMA-PROTEIN METABOLISM, NEC (6) [place] cardiac risk >20% in next 10 years Code(s): Z91.89 - OTH PERSONAL RISK FACTORS, NOT ELSEWHERE CLASSIFIED (7) Nicotine addiction Code(s): F17.200 - NICOTINE DEPENDENCE, UNSPECIFIED, UNCOMPLICATED (8) Elevated LFTs Code(s): R94.5 - ABNORMAL RESULTS OF LIVER FUNCTION STUDIES (9) Acute respiratory distress Code(s): R06.03 - ACUTE RESPIRATORY DISTRESS
[2018-05-21] MEDS: DOBUTAMINE 250 MG/D5W - 250,000 MCG/250 ML INFUS.BAG IV SCH (20:18)
[2018-05-21] MEDS ORDERED: diphenhydrAMINE HCL 25 MG CAPSULE (FP) PO ONE (21:11)
[2018-05-21] MEDS: FUROSEMIDE INJECTION 100 MG in DEXTROSE 5%-WATER - 40 ML IVPB SCH (21:33)
[2018-05-21] MEDS: ATORVASTATIN CA 10 MG TABLET (FP) PO SCH (21:34)
[2018-05-21] MEDS: CHLORHEXIDINE GLUCONATE 4% CLEANSER FOR DECOLONIZATION TP SCH (21:35)
[2018-05-21 22:49] LABS: CHOLESTEROL 174 mg/dL (50-200); HDL CHOLESTEROL 14 mg/dL (40-60); TRIGLYCERIDES 222 mg/dL (35-160)
[2018-05-22] MEDS: PIPERACILLIN/TAZOB 3.375 GM 3.375 GM in DEXTROSE 5%-WATER 100 ML IVPB SCH ×3 (02:15→19:00)
[2018-05-22] MEDS ORDERED: PIPERACILLIN/TAZOBACTAM 3.375 GM VIAL IVPB ONE ×3 (03:09→17:37)
[2018-05-22] MEDS ORDERED: PT OWN MED DRAWER 7, Y5N ONE ×2 (03:09→08:35)
[2018-05-22] MEDS ORDERED: DEXTROSE 5%-WATER 100 ML IVPB ONE ×3 (03:09→17:37)
[2018-05-22] MEDS: methylPREDNISolone NA SUCC 125 MG/2 ML VIAL IVPUSH SCH ×2 (03:15→10:00)
[2018-05-22] MEDS: VANCOMYCIN 1 GM PREMIX - 1 GM/200 ML BAG IVPB SCH ×3 (03:30→15:44)
[2018-05-22] MEDS: ALBUTEROL SO4 2.5/IPRATROPIUM 0.5 INH SOL 3 ML VIAL.NEB. NEB SCH ×5 (06:01→22:00)
[2018-05-22 06:18] LABS: HEMATOCRIT 35.8 % (35.4-49); MCH 31.4 pg (25.7-33.7); MCHC 33.5 g/dl (32.0-35.9); MEAN CELL VOLUME 93.7 fl (80-96); MEAN PLT VOLUME 11.1 fl (7.5-11.1); PLATELET COUNT 163 K/MM3 (134-434); RBC 3.82 M/mm3 (4.00-5.60); WHITE BLOOD COUNT 12.5 K/mm3 (4.0-10.0)
[2018-05-22 06:45] LABS: CHLORIDE 97 mmol/L (98-107); POTASSIUM 3.3 mmol/L (3.5-5.1); SODIUM 135 mmol/L (136-145)
[2018-05-22 06:50] LABS: ANION GAP 12 MMOL/L (8-16); BLOOD UREA NITROGEN 44 mg/dL (7-18); CALCIUM 7.2 mg/dL (8.5-10.1); CO2 26 mmol/L (21-32); CREATININE 1.2 mg/dL (0.7-1.3); GLUCOSE,RANDOM 168 mg/dL (74-106); MAGNESIUM 2.1 mg/dL (1.8-2.4); PHOSPHOROUS 2.3 mg/dL (2.5-4.9)
[2018-05-22] MEDS: HEPARIN NA (PORCINE) 5,000 UNITS/ML 1ML VIAL SQ SCH ×3 (07:28→21:10)
--- NOTE | 2018-05-22 07:45 | PN ---
Progress Note (short form) - Note Progress Note: chart reviewed awake and alert on bipap no complaints no SOB no chest pain no abd pain Vital Signs Period Temp Pulse Resp BP Sys/Reyes Pulse Ox Last 24 Hr 96 F-98 F 70-90 14-36 80-93/59-72 91-97 cor-rrr llungs decreased bs at bases abd soft,nt ext no edema CBC, BMP 05/22/18 05:30 05/22/18 05:30 Microbiology 05/20/18 12:00 Blood - Peripheral Venous Blood Culture - Preliminary NO GROWTH OBTAINED AFTER 24 HOURS, INCUBATION TO CONTINUE FOR 4 DAYS. 05/20/18 12:00 Blood - Peripheral Venous Blood Culture - Preliminary NO GROWTH OBTAINED AFTER 24 HOURS, INCUBATION TO CONTINUE FOR 4 DAYS. CXRAY pending HIV negative Current Medications Albuterol Sulfate (Ventolin 0.083% Nebulizer Soln -) 1 amp NEB Q2H PRN PRN Reason: SHORT OF BREATH/WHEEZING Albuterol/Ipratropium (Duoneb -) 1 amp NEB Q4HWA [facility] Last Admin: 05/22/18 06:01 Dose: 1 amp Allopurinol (Zyloprim -) 300 mg PO DAILY [facility] Last Admin: 05/21/18 09:19 Dose: 300 mg Aspirin (Asa -) 81 mg PO DAILY [facility] Last Admin: 05/21/18 09:18 Dose: 81 mg Atorvastatin Calcium (Lipitor -) 10 mg PO HS [facility] Last Admin: 05/21/18 21:34 Dose: 10 mg Chlorhexidine Gluconate (Hibiclens For Decolonization -) 1 applic TP HS [facility] Last Admin: 05/21/18 21:35 Dose: 1 applic Heparin Sodium (Porcine) (Heparin -) 5,000 unit SQ TID [facility] Last Admin: 05/22/18 07:28 Dose: 5,000 unit Azithromycin 500 mg/ Dextrose 250 mls @ 250 mls/hr IVPB DAILY [facility] Last Admin: 05/21/18 11:22 Dose: 250 mls/hr Piperacillin Sod/Tazobactam (Sod 3.375 gm/ Dextrose) 100 mls @ 200 mls/hr IVPB Q8H-IV ELLIE; Protocol Last Admin: 05/22/18 02:15 Dose: 200 mls/hr Vancomycin HCl (Vancomycin 1 Gm Premix -) 1 gm in 200 mls @ 400 mls/hr IVPB BID @0200,1400 [facility]; Protocol Last Admin: 05/22/18 03:30 Dose: 400 mls/hr Dobutamine HCl/Dextrose (Dobutamine 250 Mg/D5w -) 250,000 mcg in 250 mls @ 0.956 mls/hr IV TITR ELLIE; Protocol Last Admin: 05/21/18 20:18 Dose: 0.25 mcg/kg/min, 0.956 mls/hr Furosemide 100 mg/ Dextrose 50 mls @ 2.5 mls/hr IVPB TITR ELLIE; Protocol Last Admin: 05/21/18 21:33 Dose: 5 mg/hr, 2.5 mls/hr Methylprednisolone Sodium Succinate (Solu-Medrol -) 60 mg IVPUSH Q6H-IV ELLIE Last Admin: 05/22/18 03:15 Dose: 60 mg Metoprolol Tartrate (Lopressor Injection -) 5 mg IVPUSH Q4H PRN PRN Reason: HYPERTENSION Mupirocin (Bactroban Ointment (For Decolonization) -) 1 applic NS BID [facility] Stop: 05/25/18 21:59 Last Admin: 05/21/18 22:00 Dose: 1 applic Nicotine (Nicoderm Patch -) 21 mg TD DAILY [facility] Last Admin: 05/21/18 12:18 Dose: 21 mg Pantoprazole Sodium (Protonix Iv) 40 mg IVPUSH DAILY [facility] Last Admin: 05/21/18 12:18 Dose: 40 mg a/p multilobar pneumonia respiratory failue sepsis CHF- EF 15-20% COPD continue vancomycin/zosyn/zithromax check cultures check vancomycin trough swab nares for MRSA
--- NOTE | 2018-05-22 08:00 | PN ---
Physical Exam: SUBJECTIVE: Patient seen and examined by me at bedside. Patient reports feeling much better and states he would like to order a BIPAP for home. Patient also concerned about work and would like us to sent his employer a letter. Otherwise, patient denies any fever, chills, nausea, vomiting, abdominal pain, chest pain, palpitations, diarrhea, constipation. OBJECTIVE: Vital Signs Period Temp Pulse Resp BP Sys/Reyes Pulse Ox Last 24 Hr 96 F-98 F 70-90 14-36 80-93/59-72 91-97 GENERAL: The patient is awake, alert, and fully oriented, in no acute distress. EYES: Sclera anicteric, conjunctiva clear. No ptosis. ENT: Moist mucous membranes. NECK: (-) JVD LUNGS: Bilateral rhonchi and crackles throughout lung bases. On BIPAP HEART: Regular rate and rhythm, 2-3/6 systolic murmur in RUSB. ABDOMEN: Soft, nontender, nondistended, normoactive bowel sounds EXTREMITIES: No edema. NEUROLOGICAL: Normal Speech, no focal deficits PSYCH: Normal mood, normal affect. SKIN: Warm, dry, normal turgor, no rashes or lesions noted Laboratory Results - last 24 hr CBC, BMP 05/22/18 05:30 05/22/18 05:30 Active Medications Generic Name Dose Route Start Last Admin Trade Name Freq PRN Reason Stop Dose Admin Albuterol Sulfate 1 amp 05/20/18 16:51 Ventolin 0.083% Nebulizer Soln - NEB Q2H PRN SHORT OF BREATH/WHEEZING Albuterol/Ipratropium 1 amp 05/20/18 18:00 05/22/18 06:01 Duoneb - NEB 1 amp Q4HWA ELLIE Administration Allopurinol 300 mg 05/21/18 10:00 05/21/18 09:19 Zyloprim - PO 300 mg DAILY ELLIE Administration Aspirin 81 mg 05/21/18 10:00 05/21/18 09:18 Asa - PO 81 mg DAILY ELLIE Administration Atorvastatin Calcium 10 mg 05/20/18 22:00 05/21/18 21:34 Lipitor - PO 10 mg HS ELLIE Administration Chlorhexidine Gluconate 1 applic 05/20/18 22:00 05/21/18 21:35 Hibiclens For Decolonization - TP 1 applic HS ELLIE Administration Heparin Sodium (Porcine) 5,000 unit 05/20/18 22:00 05/22/18 07:28 Heparin - SQ 5,000 unit TID ELLIE Administration Azithromycin 500 mg/ Dextrose 250 mls @ 250 mls/hr 05/20/18 16:30 05/21/18 11 :22 IVPB 250 mls/hr DAILY ELLIE Administration Piperacillin Sod/Tazobactam 100 mls @ 200 mls/hr 05/20/18 18:00 05/22/18 02: 15 Sod 3.375 gm/ Dextrose IVPB 200 mls/hr Q8H-IV ELLIE Administration Protocol Vancomycin HCl 1 gm in 200 mls @ 400 mls/hr 05/21/18 02:00 05/22/18 03:30 Vancomycin 1 Gm Premix - IVPB 400 mls/hr BID@0200,1400 ELLIE Administration Protocol Dobutamine HCl/Dextrose 250,000 mcg in 250 mls @ 0.956 mls/hr 05/21/18 19:15 05/21/18 20:18 Dobutamine 250 Mg/D5w - IV 0.25 mcg/kg/min TITR ELLIE 0.956 mls/hr Administration Protocol 0.25 MCG/KG/MIN Furosemide 100 mg/ Dextrose 50 mls @ 2.5 mls/hr 05/21/18 19:15 05/21/18 21:33 IVPB 5 mg/hr TITR ELLIE 2.5 mls/hr Administration Protocol 5 MG/HR Methylprednisolone Sodium Succinate 60 mg 05/20/18 21:00 05/22/18 03:15 Solu-Medrol - IVPUSH 60 mg Q6H-IV ELLIE Administration Metoprolol Tartrate 5 mg 05/20/18 17:26 Lopressor Injection - IVPUSH Q4H PRN HYPERTENSION Mupirocin 1 applic 05/20/18 22:00 05/21/18 22:00 Bactroban Ointment (For Decolonization) - NS 05/25/18 21:59 1 applic BID ELLIE Administration Nicotine 21 mg 05/21/18 10:00 05/21/18 12:18 Nicoderm Patch - TD 21 mg DAILY ELLIE Administration Pantoprazole Sodium 40 mg 05/20/18 15:45 05/21/18 12:18 Protonix Iv IVPUSH 40 mg DAILY ELLIE Administration ASSESSMENT/PLAN: Patient is a 67 year old male who presented with hypoxia and was found to be septic secondary to Pneumonia complicated by CHF exacerbation. Patient admitted to ICU for further monitoring and management. Acute Hypoxic Respiratory Failure Likely Secondary to CHF Exacerbation and COPD Exacerbation -Patient was found to be tachypneic in the 30's yesterday and was placed on BIPAP. Will continue BIPAP. -Patient currently saturating around 94% -Continue DuoNebs and Albuterol -Decrease Methylprednisone 40mg IVPB Q6H -Continue Lasix drip. Patient has output of 1L in the last 24 hours -Continue daily weights and I&O's -ECHO revealed severely reduced LV function with EF <25% -Cardiology consult appreciated- Stress MIBI when stable -Low threshold for intubation -Monitor Electrolytes Sepsis Secondary to Multilobar PNA -Continue DuoNebs and Albuterol -Continue IV Abx with Zosyn 3.375mg Q8H, vancomycin 1gm BID, Azithromycin 500mg daily day #3. Vanc trough ordered before 4th dose -Continue Methylprednisone 60mg IVPB Q6H -Patient hypotensive and placed on Doputamine. Continue and maintain MAP >65 -Sputum cx, blood cx, legionella and pna antigen pending Hypokalemia -Likely secondary to Lasix drip -Potassium Chloride 40meq PO given and will order Naph Phos packets -Maintain >4.0 -Daily potassium supplement -Continue to monitor Transaminitis 2/2 to alcohol use vs sepsis -Resolved -Ativan PRN -Abd CT in September 2017: moderate hiatal hernia, diffuse fatty liver, hypodense splenic mass likely representing hemangioma HTN -Currently hypotensive. Hold AntiHTN medications -Mionitor BP HLD -Continue Lipitor 10mg HS CAD s/p CABG -Continue ASA 81mg daily Tobacco Dependence -Continue nicotine patch 21mg Alcohol Abuse -PRN ativan for DT's, has history of alcohol abuse with 1 L over the course of three days Degeneartive Joint Disesae -History: stable Prophylaxis -Protonix 40 IV mg daily F/E/N -On no fluids -Hypokalemia. 40meq KCl given, Maintaine >4 -NPO Disposition -Full code -Currently on Doputamine and Lasix drip. Will require inpatient in ICU for now Case discussed with Attending, Dr. Barnard. Renee Beyer [id number] Visit type - Emergency Visit Emergency Visit: Yes ED Registration Date: 05/20/18 Care time: The patient presented to the Emergency Department on the above date and was hospitalized for further evaluation of their emergent condition. - New Patient This patient is new to me today: Yes Date on this admission: 05/22/18 - Critical Care Critical Care patient: Yes Total Critical Care Time (in minutes): 45 Critical Care Statement: The care of this patient involved high complexity decision making to prevent further life threatening deterioration of the patient 's condition and/or to evaluate & treat vital organ system(s) failure or risk of failure.
[2018-05-22] MEDS ORDERED: POTASSIUM CHLORIDE TABS 20 MEQ TABLET.ER (FP) PO ONE (08:02)
--- NOTE | 2018-05-22 09:47 | PN ---
Teaching Attending Note Name of Resident: Renee Beyer ATTENDING PHYSICIAN STATEMENT I saw and evaluated the patient. I reviewed the resident's note and discussed the case with the resident. I agree with the resident's findings and plan as documented with exceptions below. SUBJECTIVE: Patient seen and examined, breathing better, more awake and interactive today, looks comfortable,states has been non compliant with his lasix outpatient. last cardiology follow up in 5-6 months ago. OBJECTIVE: Vital Signs Period Temp Pulse Resp BP Sys/Reyes Pulse Ox Last 24 Hr 96 F-98 F 69-90 14-36 80-93/59-72 91-97 Intake & Output 05/19/18 05/20/18 05/21/18 05/22/18 23:59 23:59 23:59 23:59 Intake Total 550 600 525 Output Total 900 1000 Balance 550 -300 -475 Weight 137 lb 9 oz 140 lb 9 oz 141 lb 1.533 oz General: on bipap, tachypnea much improved, minimal use of acessory muscles of respiration, able to talk and more awake and interactive today NEck: Soft, supple, neck vein distension Chest; improved air entry, improved rales Abdomen:soft, NT, ND, positive bowel sounds Extermities: no edema, pulses present Home Medications Medication Instructions Recorded Allopurinol [Zyloprim -] 300 mg PO DAILY 05/20/18 Carvedilol [Coreg -] 6.25 mg PO BID 05/20/18 Furosemide [Lasix -] 40 mg PO DAILY 05/20/18 Ibuprofen [Motrin -] 600 mg PO TID PRN 05/20/18 Multivit-Min/FA/Lycopen/Lutein 1 each PO DAILY 05/20/18 [Centrum Silver Tablet] Simvastatin [Zocor -] 20 mg PO HS 05/20/18 predniSONE [Deltasone -] 1 mg PO QID 05/20/18 Active Medications Albuterol Sulfate (Ventolin 0.083% Nebulizer Soln -) 1 amp NEB Q2H PRN PRN Reason: SHORT OF BREATH/WHEEZING Albuterol/Ipratropium (Duoneb -) 1 amp NEB Q4HWA [facility] Last Admin: 05/22/18 06:01 Dose: 1 amp Allopurinol (Zyloprim -) 300 mg PO DAILY [facility] Last Admin: 05/21/18 09:19 Dose: 300 mg Aspirin (Asa -) 81 mg PO DAILY [facility] Last Admin: 05/21/18 09:18 Dose: 81 mg Atorvastatin Calcium (Lipitor -) 10 mg PO HS [facility] Last Admin: 05/21/18 21:34 Dose: 10 mg Chlorhexidine Gluconate (Hibiclens For Decolonization -) 1 applic TP HS [facility] Last Admin: 05/21/18 21:35 Dose: 1 applic Heparin Sodium (Porcine) (Heparin -) 5,000 unit SQ TID [facility] Last Admin: 05/22/18 07:28 Dose: 5,000 unit Azithromycin 500 mg/ Dextrose 250 mls @ 250 mls/hr IVPB DAILY [facility] Last Admin: 05/21/18 11:22 Dose: 250 mls/hr Piperacillin Sod/Tazobactam (Sod 3.375 gm/ Dextrose) 100 mls @ 200 mls/hr IVPB Q8H-IV [facility]; Protocol Last Admin: 05/22/18 02:15 Dose: 200 mls/hr Vancomycin HCl (Vancomycin 1 Gm Premix -) 1 gm in 200 mls @ 400 mls/hr IVPB BID @0200,1400 ELLIE; Protocol Last Admin: 05/22/18 03:30 Dose: 400 mls/hr Dobutamine HCl/Dextrose (Dobutamine 250 Mg/D5w -) 250,000 mcg in 250 mls @ 0.956 mls/hr IV TITR [facility]; Protocol Last Admin: 05/21/18 20:18 Dose: 0.25 mcg/kg/min, 0.956 mls/hr Furosemide 100 mg/ Dextrose 50 mls @ 2.5 mls/hr IVPB TITR [facility]; Protocol Last Admin: 05/21/18 21:33 Dose: 5 mg/hr, 2.5 mls/hr Methylprednisolone Sodium Succinate (Solu-Medrol -) 60 mg IVPUSH Q6H-IV [facility] Last Admin: 05/22/18 03:15 Dose: 60 mg Metoprolol Tartrate (Lopressor Injection -) 5 mg IVPUSH Q4H PRN PRN Reason: HYPERTENSION Mupirocin (Bactroban Ointment (For Decolonization) -) 1 applic NS BID [facility] Stop: 05/25/18 21:59 Last Admin: 05/21/18 22:00 Dose: 1 applic Nicotine (Nicoderm Patch -) 21 mg TD DAILY [facility] Last Admin: 05/21/18 12:18 Dose: 21 mg Pantoprazole Sodium (Protonix Iv) 40 mg IVPUSH DAILY [facility] Last Admin: 05/21/18 12:18 Dose: 40 mg Laboratory Results - last 24 hr 05/20/18 05/21/18 05/21/18 12:20 05:10 05:10 WBC RBC Hgb Hct MCV MCH MCHC RDW Plt Count 181 MPV 10.5 Neutrophils % (Manual) 68.7 Band Neutrophils % 22.2 Lymphocytes % (Manual) 4.1 L D Monocytes % (Manual) 3 L Eosinophils % (Manual) 0.0 Basophils % (Manual) 0.0 Myelocytes % (Man) 0 Promyelocytes % (Man) 0 Blast Cells % (Manual) 0 Nucleated RBC % 0 Metamyelocytes 0 D Hypochromia 0 Platelet Estimate Decreased Polychromasia 0 Poikilocytosis 1+ Anisocytosis 1+ Microcytosis 0 Macrocytosis 1+ Tear Drop Cells 1+ VBG pH 7.36 POC VBG pCO2 42.9 POC VBG pO2 31.6 Mixed VBG HCO3 23.5 Sodium Potassium Chloride Carbon Dioxide Anion Gap BUN Creatinine Creat Clearance w eGFR Random Glucose Calcium Phosphorus Magnesium B-Natriuretic Peptide 93110.83 H Triglycerides Cholesterol Total LDL Cholesterol HDL Cholesterol Urine Color Urine Appearance Urine pH Ur Specific [place] Urine Protein Urine Glucose (UA) Urine Ketones Urine Blood Urine Nitrite Urine Bilirubin Urine Urobilinogen Ur Leukocyte Esterase Urine WBC (Auto) Urine RBC (Auto) Urine Yeast 05/21/18 05/21/18 05/21/18 08:50 18:15 19:50 WBC RBC Hgb Hct MCV MCH MCHC RDW Plt Count MPV Neutrophils % (Manual) Band Neutrophils % Lymphocytes % (Manual) Monocytes % (Manual) Eosinophils % (Manual) Basophils % (Manual) Myelocytes % (Man) Promyelocytes % (Man) Blast Cells % (Manual) Nucleated RBC % Metamyelocytes Hypochromia Platelet Estimate Polychromasia Poikilocytosis Anisocytosis Microcytosis Macrocytosis Tear Drop Cells VBG pH POC VBG pCO2 POC VBG pO2 Mixed VBG HCO3 Sodium Potassium Chloride Carbon Dioxide Anion Gap BUN Creatinine Creat Clearance w eGFR Random Glucose Calcium Phosphorus Magnesium B-Natriuretic Peptide 6720.71 H Triglycerides 222 H Cholesterol 174 Total LDL Cholesterol 41 HDL Cholesterol 14 L Urine Color Dk yellow Urine Appearance Slcloudy Urine pH 5.0 Ur Specific [place] 1.026 Urine Protein 1+ H D Urine Glucose (UA) Negative Urine Ketones Trace H Urine Blood 1+ H Urine Nitrite Negative Urine Bilirubin Negative Urine Urobilinogen 2.0 Ur Leukocyte Esterase Negative Urine WBC (Auto) 2 Urine RBC (Auto) 3 Urine Yeast Few 05/22/18 05/22/18 05:30 05:30 WBC 12.5 H RBC 3.82 L Hgb 12.0 Hct 35.8 MCV 93.7 MCH 31.4 MCHC 33.5 RDW 15.0 Plt Count 163 MPV 11.1 Neutrophils % (Manual) Band Neutrophils % Lymphocytes % (Manual) Monocytes % (Manual) Eosinophils % (Manual) Basophils % (Manual) Myelocytes % (Man) Promyelocytes % (Man) Blast Cells % (Manual) Nucleated RBC % Metamyelocytes Hypochromia Platelet Estimate Polychromasia Poikilocytosis Anisocytosis Microcytosis Macrocytosis Tear Drop Cells VBG pH POC VBG pCO2 POC VBG pO2 Mixed VBG HCO3 Sodium 135 L Potassium 3.3 L Chloride 97 L Carbon Dioxide 26 Anion Gap 12 BUN 44 H Creatinine 1.2 Creat Clearance w eGFR > 60 Random Glucose 168 H D Calcium 7.2 L Phosphorus 2.3 L Magnesium 2.1 B-Natriuretic Peptide Triglycerides Cholesterol Total LDL Cholesterol HDL Cholesterol Urine Color Urine Appearance Urine pH Ur Specific [place]wood Urine Protein Urine Glucose (UA) Urine Ketones Urine Blood Urine Nitrite Urine Bilirubin Urine Urobilinogen Ur Leukocyte Esterase Urine WBC (Auto) Urine RBC (Auto) Urine Yeast Microbiology 05/20/18 18:00 Urine - Urine Clean Catch Urine Culture - Final NO GROWTH OBTAINED 05/20/18 12:00 Blood - Peripheral Venous Blood Culture - Preliminary NO GROWTH OBTAINED AFTER 24 HOURS, INCUBATION TO CONTINUE FOR 4 DAYS. 05/20/18 12:00 Blood - Peripheral Venous Blood Culture - Preliminary NO GROWTH OBTAINED AFTER 24 HOURS, INCUBATION TO CONTINUE FOR 4 DAYS. CXr - mild improvement in congestion ASSESSMENT AND PLAN: 67 yom with PMHx of CAD s/p CABG (2002), CHF (?systolic vs diastolic), active heavy smoker x35 years, COPD, HTN, HLD admitted with acute hypoxic respiratory failure. -Acute hypoxic respiratory failure likely from sepsis with Multifocal PNA/Acute systolic HF exacerbation +/- COPD exacerbation -Severe systolic dysfunction with very poor EF -Multifocal Atrial tachycardia -Hyponatremia, likely hypervolumic -Hypokalemia -Hypophosphatemia -Mild OLIMPIA, ?Sepsis, now on diuresis -Tobacco abuse -CAD s/p CABG -HTN -HLD Plan: Clinically improved. Diuresing, CXR improved Dobutamine/lasix drip, titrate based on hemodynamics. However suspect low baseline BP given very poor EF. Conitinue bipap. Taper steroids. zosyn/vanco/azithromycin day 3, follow blood/sputum cx/urine PNA screen/MRSA nares, ID input noted. Coreg as tolerated, statin. 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 Also reports non compliance with lasix. Retrieve more info from family and contact outpatient cardiology tomorrow for prior EF and further details. ?Current sepsis with worsening myocardial depression. Repeat 2D echo as improved. Will need ischemia workup/evaluation for ICD once improved from sepsis/ respiratory standpoint. Follow up with cardiology for anti-coagulation. Monitor Na levels/renal function. Replete K/phos prn. DVTPPX with heparin, discuss with cardiology about full dose anti-coagulation. Prognosis guarded given poor cardiac function, sepsis. Continue ICU level of care. Total critical care time spent including patient visit and exam, co-ordination of care and management 40 min.
[2018-05-22] MEDS ORDERED: methylPREDNISolone NA SUCC 40 MG/1 ML VIAL IVPUSH SCH (10:00)
[2018-05-22] MEDS: ALLOPURINOL 100 MG TABLET (FP) PO SCH (10:06)
[2018-05-22] MEDS: AZITHROMYCIN IVPB 500 MG in DEXTROSE 5%-WATER - 250 ML IVPB SCH (10:06)
[2018-05-22] MEDS: ASPIRIN 81 MG CHEWABLE TABLETS PO SCH (10:06)
[2018-05-22] MEDS: PANTOPRAZOLE SODIUM 40 MG VIAL IVPUSH SCH (10:07)
[2018-05-22] MEDS: NICOTINE 21 MG/24 HOURS TOPICAL PATCH TD SCH (10:07)
[2018-05-22] MEDS ORDERED: NAPH,MB-DB/K PH,MBDB POWDER PACKET PO ONE ×2 (10:20→14:14)
[2018-05-22] MEDS: MUPIROCIN 2% TOPICAL OINTMENT FOR DECOLONIZATION NS SCH ×2 (10:47→21:15)
--- NOTE | 2018-05-22 11:11 | PN ---
Teaching Attending Note Name of Resident: Deirdre De La Cruz ATTENDING PHYSICIAN STATEMENT I saw and evaluated the patient. I reviewed the resident's note and discussed the case with the resident. I agree with the resident's findings and plan as documented. SUBJECTIVE: Pt seen and examined in the ICU. Remains on BiPAP. Echocardiogram showing severe LV dysfunction and severe mitral regurgitation. Started on dobutamine and lasix gtts. OBJECTIVE: Vital Signs Period Temp Pulse Resp BP Sys/Reyes Pulse Ox Last 24 Hr 96 F-98 F 69-96 14-36 80-89/59-67 91-100 Intake & Output 05/19/18 05/20/18 05/21/18 05/22/18 23:59 23:59 23:59 23:59 Intake Total 550 600 525 Output Total 900 1000 Balance 550 -300 -475 Weight 62.397 kg 63.758 kg 64 kg Gen: tachypneic on BiPAP Heart: RRR Lung: bibasilar rales Abd: soft, nontender Ext: no edema CBC, BMP 05/22/18 05:30 05/22/18 05:30 Active Medications Albuterol Sulfate (Ventolin 0.083% Nebulizer Soln -) 1 amp NEB Q2H PRN PRN Reason: SHORT OF BREATH/WHEEZING Albuterol/Ipratropium (Duoneb -) 1 amp NEB Q4HWA [facility] Last Admin: 05/22/18 10:20 Dose: 1 amp Allopurinol (Zyloprim -) 300 mg PO DAILY [facility] Last Admin: 05/22/18 10:06 Dose: 300 mg Aspirin (Asa -) 81 mg PO DAILY [facility] Last Admin: 05/22/18 10:06 Dose: 81 mg Atorvastatin Calcium (Lipitor -) 10 mg PO HS [facility] Last Admin: 05/21/18 21:34 Dose: 10 mg Chlorhexidine Gluconate (Hibiclens For Decolonization -) 1 applic TP HS [facility] Last Admin: 05/21/18 21:35 Dose: 1 applic Heparin Sodium (Porcine) (Heparin -) 5,000 unit SQ TID [facility] Last Admin: 05/22/18 07:28 Dose: 5,000 unit Azithromycin 500 mg/ Dextrose 250 mls @ 250 mls/hr IVPB DAILY [facility] Last Admin: 05/22/18 10:06 Dose: 250 mls/hr Piperacillin Sod/Tazobactam (Sod 3.375 gm/ Dextrose) 100 mls @ 200 mls/hr IVPB Q8H-IV [facility]; Protocol Last Admin: 05/22/18 10:06 Dose: 200 mls/hr Vancomycin HCl (Vancomycin 1 Gm Premix -) 1 gm in 200 mls @ 400 mls/hr IVPB BID @0200,1400 ELLIE; Protocol Last Admin: 05/22/18 03:30 Dose: 400 mls/hr Dobutamine HCl/Dextrose (Dobutamine 250 Mg/D5w -) 250,000 mcg in 250 mls @ 0.956 mls/hr IV TITR [facility]LLIE; Protocol Last Admin: 05/21/18 20:18 Dose: 0.25 mcg/kg/min, 0.956 mls/hr Furosemide 100 mg/ Dextrose 50 mls @ 2.5 mls/hr IVPB TITR ELLIE; Protocol Last Admin: 05/21/18 21:33 Dose: 5 mg/hr, 2.5 mls/hr Methylprednisolone Sodium Succinate (Solu-Medrol -) 40 mg IVPUSH Q8H ELLIE Metoprolol Tartrate (Lopressor Injection -) 5 mg IVPUSH Q4H PRN PRN Reason: HYPERTENSION Mupirocin (Bactroban Ointment (For Decolonization) -) 1 applic NS BID [facility] Stop: 05/25/18 21:59 Last Admin: 05/21/18 22:00 Dose: 1 applic Nicotine (Nicoderm Patch -) 21 mg TD DAILY [facility] Last Admin: 05/22/18 10:07 Dose: 21 mg Pantoprazole Sodium (Protonix Iv) 40 mg IVPUSH DAILY [facility] Last Admin: 05/22/18 10:07 Dose: 40 mg ASSESSMENT AND PLAN: Acute Hypoxic Respiratory Failure Pneumonia Acute Pulmonary Edema/LV Systolic Heart Failure Severe Mitral Regurgitation COPD CAD s/p CABG HTN Hyperipidemia - continue antibiotics - continue lasix, dobutamine gtts - can d/c medrol - inhaled bronchodilators - O2 to keep SpO2 >90% - BiPAP to assist in work of breathing - replete lytes - DVT prophylaxis - continue ICU monitoring for tenuous respiratory status critical care time spent in reviewing chart, evaluating patient and formulating plan 35 min
--- NOTE | 2018-05-22 12:18 | PN ---
Progress Note, Physician Chief Complaint: alert and orietned; feels better (less short of breath). History of Present Illness: Patient is a 67 black man with history of CAD s/p CABG (denies hx [place]), etoh abuse (drinks 1/3 bottle of gin per day; last drink ?2 days ago), current tobacco abuse (and for many years at 1/2-1 ppd), HTN, HLD, here today complaining of shortness of breath for the past 4 days. Patient states that he has chest pain in both sides when he takes a deep breath. Patient states that he noticed his eyes were proptotic starting this morning. Denies history of thyroid problems. Last drink was yesterday. Daughter endorses tactile fever. Denies history of blood clots. Denies leg swelling. 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 - Current Medication List Current Medications: Active Medications Albuterol Sulfate (Ventolin 0.083% Nebulizer Soln -) 1 amp NEB Q2H PRN PRN Reason: SHORT OF BREATH/WHEEZING Albuterol/Ipratropium (Duoneb -) 1 amp NEB Q4HWA [facility] Last Admin: 05/22/18 10:20 Dose: 1 amp Allopurinol (Zyloprim -) 300 mg PO DAILY [facility] Last Admin: 05/22/18 10:06 Dose: 300 mg Aspirin (Asa -) 81 mg PO DAILY [facility] Last Admin: 05/22/18 10:06 Dose: 81 mg Atorvastatin Calcium (Lipitor -) 10 mg PO HS [facility] Last Admin: 05/21/18 21:34 Dose: 10 mg Chlorhexidine Gluconate (Hibiclens For Decolonization -) 1 applic TP HS [facility] Last Admin: 05/21/18 21:35 Dose: 1 applic Heparin Sodium (Porcine) (Heparin -) 5,000 unit SQ TID [facility] Last Admin: 05/22/18 07:28 Dose: 5,000 unit Azithromycin 500 mg/ Dextrose 250 mls @ 250 mls/hr IVPB DAILY [facility] Last Admin: 05/22/18 10:06 Dose: 250 mls/hr Piperacillin Sod/Tazobactam (Sod 3.375 gm/ Dextrose) 100 mls @ 200 mls/hr IVPB Q8H-IV [facility]; Protocol Last Admin: 05/22/18 10:06 Dose: 200 mls/hr Vancomycin HCl (Vancomycin 1 Gm Premix -) 1 gm in 200 mls @ 400 mls/hr IVPB BID @0200,1400 [facility]; Protocol Last Admin: 05/22/18 03:30 Dose: 400 mls/hr Dobutamine HCl/Dextrose (Dobutamine 250 Mg/D5w -) 250,000 mcg in 250 mls @ 0.956 mls/hr IV TITR [facility]; Protocol Last Admin: 05/21/18 20:18 Dose: 0.25 mcg/kg/min, 0.956 mls/hr Furosemide 100 mg/ Dextrose 50 mls @ 2.5 mls/hr IVPB TITR [facility]; Protocol Last Admin: 05/21/18 21:33 Dose: 5 mg/hr, 2.5 mls/hr Metoprolol Tartrate (Lopressor Injection -) 5 mg IVPUSH Q4H PRN PRN Reason: HYPERTENSION Mupirocin (Bactroban Ointment (For Decolonization) -) 1 applic NS BID [facility] Stop: 05/25/18 21:59 Last Admin: 05/22/18 10:47 Dose: 1 applic Nicotine (Nicoderm Patch -) 21 mg TD DAILY [facility] Last Admin: 05/22/18 10:07 Dose: 21 mg Pantoprazole Sodium (Protonix Iv) 40 mg IVPUSH DAILY [facility] Last Admin: 05/22/18 10:07 Dose: 40 mg - Objective Vital Signs: Vital Signs Temperature 96 F L 05/22/18 02:00 Pulse Rate 96 H 05/22/18 10:20 Respiratory Rate 14 05/22/18 06:00 Blood Pressure 86/63 05/22/18 06:00 O2 Sat by Pulse Oximetry (%) 100 05/22/18 10:20 Constitutional: Yes: Anxious Eyes: Yes: Other (left eye cloudy sclera/cornea) Neck: Yes: Supple Cardiovascular: Yes: S1 (varies in intensity), S2 Respiratory: Yes: Diminished (left base) Gastrointestinal: Yes: Soft ...Rectal Exam: Yes: Deferred Genitourinary: No: Anuria Musculoskeletal: Yes: Muscle Weakness Extremities: Yes: Cool Edema: No Peripheral Pulses WNL: Yes Integumentary: Yes: WNL Neurological: Yes: Alert, Oriented, Weakness Psychiatric: Yes: Alert, Oriented Labs: CBC, BMP 05/22/18 05:30 05/22/18 05:30 INR, PTT INR 1.04 (0.83-1.09) 05/20/18 12:00 Abnormal Lab Results 05/23/18 05/24/18 05/24/18 05:30 05:30 05:30 WBC 12.6 H RBC 3.83 L Hgb 11.6 L Neutrophils % (Manual) 85.0 H D Lymphocytes % (Manual) 4.0 L Nucleated RBC % 1 H BUN 52 H Random Glucose 227 H Calcium 7.8 L Problem List - Problems (1) Pneumonia Assessment/Plan: febrile earler. F/u with vamp throater, ID. Code(s): J18.9 - PNEUMONIA, UNSPECIFIED ORGANISM (2) HTN (hypertension) Code(s): I10 - ESSENTIAL (PRIMARY) HYPERTENSION (3) Hx of CABG Assessment/Plan: Pt says CABG was done in [place] in 2002. Code(s): Z95.1 - PRESENCE OF AORTOCORONARY BYPASS GRAFT (4) Hypoalbuminemia Code(s): E88.09 - OTH DISORDERS OF PLASMA-PROTEIN METABOLISM, NEC (5) [place] cardiac risk >20% in next 10 years Assessment/Plan: coronary artery evaluation (stress MIBI) when stable Code(s): Z91.89 - OTH PERSONAL RISK FACTORS, NOT ELSEWHERE CLASSIFIED (6) Nicotine addiction Assessment/Plan: pt agress to start nicotine patch. Code(s): F17.200 - NICOTINE DEPENDENCE, UNSPECIFIED, UNCOMPLICATED (7) Elevated LFTs Code(s): R94.5 - ABNORMAL RESULTS OF LIVER FUNCTION STUDIES (8) Acute respiratory distress Assessment/Plan: Pt with acute CHF, ?PNA On BIpap. Code(s): R06.03 - ACUTE RESPIRATORY DISTRESS (9) Acute on chronic systolic and diastolic heart failure, NYHA class 3 Assessment/Plan: Severely reduced LVEF. Continue dobutamine and furosemide. F/u BUN/Cr, electrolytes, Is and Os, daily weight. S/p CABG 2002 at [facility] (f/u records; ? also had valve surgery). Restudy coronary arteries, evaluate for ICD when stable. Pt says he "is finished" with cigarettes and alcohol. Code(s): I50.43 - ACUTE ON CHRONIC COMBINED SYSTOLIC AND DIASTOLIC HRT FAIL
--- NOTE | 2018-05-22 13:13 | EKG ---
Test Reason : Blood Pressure : / mmHG Vent. Rate : 072 BPM Atrial Rate : 072 BPM P-R Int : 116 ms QRS Dur : 108 ms QT Int : 494 ms P-R-T Axes : 098 072 102 degrees QTc Int : 540 ms SINUS RHYTHM WITH PREMATURE SUPRAVENTRICULAR COMPLEXES AND WITH OCCASIONAL PREMATURE VENTRICULAR COMPLEXES NONSPECIFIC ST AND T WAVE ABNORMALITY PROLONGED QT ABNORMAL ECG WHEN COMPARED WITH ECG OF 20-MAY-2018 15:59, PREMATURE VENTRICULAR COMPLEXES ARE NOW PRESENT PREMATURE SUPRAVENTRICULAR COMPLEXES ARE NOW PRESENT NONSPECIFIC T WAVE ABNORMALITY, WORSE IN LATERAL LEADS Confirmed by DECLAN CARABALLO MD ([id number]) on 05/22/2018 1:13:42 PM Referred By: Richard SHEPHERD Confirmed By:DECLAN CARABALLO MD
--- NOTE | 2018-05-22 13:52 | EKG ---
Test Reason : Blood Pressure : / mmHG Vent. Rate : 098 BPM Atrial Rate : 098 BPM P-R Int : 118 ms QRS Dur : 112 ms QT Int : 398 ms P-R-T Axes : 078 028 099 degrees QTc Int : 508 ms NORMAL SINUS RHYTHM NONSPECIFIC ST AND T WAVE ABNORMALITY ABNORMAL ECG WHEN COMPARED WITH ECG OF 20-MAY-2018 12:08, PREMATURE VENTRICULAR COMPLEXES ARE NO LONGER PRESENT Confirmed by DECLAN CARABALLO MD ([id number]) on 05/22/2018 1:52:22 PM Referred By: Confirmed By:DECLAN CARABALLO MD
--- NOTE | 2018-05-22 13:57 | EKG ---
Test Reason : Blood Pressure : / mmHG Vent. Rate : 141 BPM Atrial Rate : 141 BPM P-R Int : 114 ms QRS Dur : 106 ms QT Int : 302 ms P-R-T Axes : 091 -09 096 degrees QTc Int : 462 ms POOR DATA QUALITY, INTERPRETATION MAY BE ADVERSELY AFFECTED SINUS TACHYCARDIA WITH OCCASIONAL PREMATURE VENTRICULAR COMPLEXES NONSPECIFIC ST AND T WAVE ABNORMALITY ABNORMAL ECG WHEN COMPARED WITH ECG OF 13-OCT-2017 19:56, PREMATURE VENTRICULAR COMPLEXES ARE NOW PRESENT VENT. RATE HAS INCREASED BY [address] NO LONGER DEPRESSED IN ANTEROLATERAL LEADS T WAVE INVERSION NO LONGER EVIDENT IN ANTEROLATERAL LEADS Confirmed by DECLAN CARABALLO MD ([id number]) on 05/22/2018 1:56:49 PM Referred By: Confirmed By:DECLAN CARABALLO MD
[2018-05-22] MEDS ORDERED: POTASSIUM CHLORIDE TABS 10 MEQ TABLET.ER (FP) PO ONE (14:12)
[2018-05-22] MEDS ORDERED: MAGNESIUM 1GM/D5W 100ML - 100 ML IVPB IVPB ONE (14:14)
--- NOTE | 2018-05-22 14:21 | PN ---
Physical Exam: SUBJECTIVE: Patient seen and examined; no acute events overnight. Still on BiPAP ; RR 30s; which is improved. Currently on lasix and dobutamine ggt. OBJECTIVE: Vital Signs Period Temp Pulse Resp BP Sys/Reyes Pulse Ox Last 24 Hr 96 F-98 F 69-96 14-34 80-89/59-67 91-100 GENERAL: The patient is awake, alert, and fully oriented; on BiPAP LUNGS: Bilateral wheez; congestion;improved HEART: Regular rate and rhythm, S1, S2 without murmur, rub or gallop. ABDOMEN: Soft, nontender, nondistended, normoactive bowel sounds, no guarding, no rebound EXTREMITIES: 2+ pulses, warm, well-perfused, no edema. NEUROLOGICAL: Cranial nerves II through XII grossly intact. Normal speech, gait not observed. Laboratory Results - last 24 hr 05/21/18 05/21/18 05/22/18 18:15 19:50 05:30 WBC 12.5 H RBC 3.82 L Hgb 12.0 Hct 35.8 MCV 93.7 MCH 31.4 MCHC 33.5 RDW 15.0 Plt Count 163 MPV 11.1 Sodium Potassium Chloride Carbon Dioxide Anion Gap BUN Creatinine Creat Clearance w eGFR Random Glucose Calcium Phosphorus Magnesium B-Natriuretic Peptide 6720.71 H Triglycerides 222 H Cholesterol 174 Total LDL Cholesterol 41 HDL Cholesterol 14 L 05/22/18 05:30 WBC RBC Hgb Hct MCV MCH MCHC RDW Plt Count MPV Sodium 135 L Potassium 3.3 L Chloride 97 L Carbon Dioxide 26 Anion Gap 12 BUN 44 H Creatinine 1.2 Creat Clearance w eGFR > 60 Random Glucose 168 H D Calcium 7.2 L Phosphorus 2.3 L Magnesium 2.1 B-Natriuretic Peptide Triglycerides Cholesterol Total LDL Cholesterol HDL Cholesterol Active Medications Generic Name Dose Route Start Last Admin Trade Name Freq PRN Reason Stop Dose Admin Albuterol Sulfate 1 amp 05/20/18 16:51 Ventolin 0.083% Nebulizer Soln - NEB Q2H PRN SHORT OF BREATH/WHEEZING Albuterol/Ipratropium 1 amp 05/20/18 18:00 05/22/18 14:07 Duoneb - NEB 1 amp Q4HWA [facility] Administration Allopurinol 300 mg 05/21/18 10:00 05/22/18 10:06 Zyloprim - PO 300 mg DAILY [facility] Administration Aspirin 81 mg 05/21/18 10:00 05/22/18 10:06 Asa - PO 81 mg DAILY [facility] Administration Atorvastatin Calcium 10 mg 05/20/18 22:00 05/21/18 21:34 Lipitor - PO 10 mg HS [facility] Administration Chlorhexidine Gluconate 1 applic 05/20/18 22:00 05/21/18 21:35 Hibiclens For Decolonization - TP 1 applic HS [facility] Administration Heparin Sodium (Porcine) 5,000 unit 05/20/18 22:00 05/22/18 07:28 Heparin - SQ 5,000 unit TID [facility] Administration Piperacillin Sod/Tazobactam 100 mls @ 200 mls/hr 05/20/18 18:00 05/22/18 10: 06 Sod 3.375 gm/ Dextrose IVPB 200 mls/hr Q8H-IV [facility] Administration Protocol Vancomycin HCl 1 gm in 200 mls @ 400 mls/hr 05/21/18 02:00 05/22/18 03:30 Vancomycin 1 Gm Premix - IVPB 400 mls/hr BID@0200,1400 [facility] Administration Protocol Dobutamine HCl/Dextrose 250,000 mcg in 250 mls @ 0.956 mls/hr 05/21/18 19:15 05/21/18 20:18 Dobutamine 250 Mg/D5w - IV 0.25 mcg/kg/min TITR [facility] 0.956 mls/hr Administration Protocol 0.25 MCG/KG/MIN Furosemide 100 mg/ Dextrose 50 mls @ 2.5 mls/hr 05/21/18 19:15 05/21/18 21:33 IVPB 5 mg/hr TITR [facility] 2.5 mls/hr Administration Protocol 5 MG/HR Levofloxacin 750 mg in 150 mls @ 100 mls/hr 05/22/18 14:08 Levaquin 750 Mg Premixed Ivpb - IVPB 05/22/18 15:37 ONCE ONE Protocol Levofloxacin 500 mg in 100 mls @ 100 mls/hr 05/23/18 10:00 Levaquin 500 Mg Premixed Ivpb - IVPB DAILY [facility] Protocol Magnesium Sulfate 1 gm 05/22/18 14:14 Magnesium Sulfate IVPB 05/22/18 14:15 ONCE ONE Metoprolol Tartrate 5 mg 05/20/18 17:26 Lopressor Injection - IVPUSH Q4H PRN HYPERTENSION Mupirocin 1 applic 05/20/18 22:00 05/22/18 10:47 Bactroban Ointment (For Decolonization) - NS 05/25/18 21:59 1 applic BID [facility] Administration Nicotine 21 mg 05/21/18 10:00 05/22/18 10:07 Nicoderm Patch - TD 21 mg DAILY [facility] Administration Pantoprazole Sodium 40 mg 05/23/18 10:00 Protonix - PO DAILY [facility] Potassium Chloride 40 meq 05/22/18 14:12 K-Dur - PO 05/22/18 14:13 ONCE ONE Potassium Phos/Sodium Phos 1 packet 05/22/18 14:14 Phos-Nak Packet - PO 05/22/18 14:15 ONCE ONE ASSESSMENT/PLAN: This is a 67 year old male with a history of CABG; HLD, HTN, who present with shortness of breath found to be in acute hypoxic respiratory failure secondary to CHF/COPD exac with a PNA. #Acute hypoxic respiratory failure sec to CHF/COPD/PNA -on BiPAP with FiO2 of 40%; IPAP/EPAP / -trial patient on venti mask; 40% FiO2 and use NC while eating -keep SpO2 >90% -continue inhaled broncodilators; -can d/c steroids #PNA -cont zosyn untill tomorrow -d/c vancomycin -sputum culture with presumptive legionella; continue with atypical; switch to levaquin tomorrow (less prolonging of QT than azithromycin) -repeat sputum culture #Acute on chronic CHF: -cont lasix and dobutamine ggt -strict I/Os -monitor electrolytes; k, mg, phos; replace prn -very low EF; echo appreciated -f/u CXR #Prolonged Qtc: today 540 -daily ECGs as patient is getting qt prolonging medication #CAD s/p CABG; -asa, statin; not stable for BB -will need cardiac eval when stable #HTN: hold BP meds per hypotension; metoprolol prn for HR >110 #HLD: cont statin #Tobacco: cont nicotine patch #Alcohol abuse: monitor signs for DT -would not start librium or ativan due to hypoxis and decreased respiratory status #Electrolytes: -hypokalemia: keep K > 4; replace; will recheck later today ; will start daily potassium due to lasix drip -hypophoshatemia; replace keep >3 -magnesium; keep >2 #Diet: cardiac DVT ppl: heparin sq GI ppl: protonix Disposition: continuous critical care Visit type - Emergency Visit Emergency Visit: Yes ED Registration Date: 05/20/18 Care time: The patient presented to the Emergency Department on the above date and was hospitalized for further evaluation of their emergent condition. - New Patient This patient is new to me today: No - Critical Care Critical Care patient: Yes Total Critical Care Time (in minutes): 40 Critical Care Statement: The care of this patient involved high complexity decision making to prevent further life threatening deterioration of the patient 's condition and/or to evaluate & treat vital organ system(s) failure or risk of failure.
[2018-05-22] MEDS ORDERED: FUROSEMIDE INJECTION 100 MG in DEXTROSE 5%-WATER - 90 ML IVPB SCH (19:29)
[2018-05-22] MEDS ORDERED: diphenhydrAMINE HCL 25 MG CAPSULE (FP) PO ONE (20:00)
[2018-05-22 20:55] LABS: MAGNESIUM 2.3 mg/dL (1.8-2.4); PHOSPHOROUS 1.9 mg/dL (2.5-4.9); POTASSIUM 3.7 mmol/L (3.5-5.1)
[2018-05-22] MEDS: DOBUTAMINE 250 MG/D5W - 250,000 MCG/250 ML INFUS.BAG IV SCH (21:08)
[2018-05-22] MEDS: CHLORHEXIDINE GLUCONATE 4% CLEANSER FOR DECOLONIZATION TP SCH (21:14)
[2018-05-22] MEDS: ATORVASTATIN CA 10 MG TABLET (FP) PO SCH (21:27)
[2018-05-22] MEDS ORDERED: MELATONIN 1 MG TABLET PO PRN (22:00)
[2018-05-23] MEDS: PIPERACILLIN/TAZOB 3.375 GM 3.375 GM in DEXTROSE 5%-WATER 100 ML IVPB SCH ×2 (03:00→09:49)
[2018-05-23] MEDS ORDERED: DEXTROSE 5%-WATER 100 ML IVPB ONE ×2 (03:07→09:05)
[2018-05-23] MEDS ORDERED: PIPERACILLIN/TAZOBACTAM 3.375 GM VIAL IVPB ONE ×2 (03:07→09:05)
[2018-05-23] MEDS: ALBUTEROL SO4 2.5/IPRATROPIUM 0.5 INH SOL 3 ML VIAL.NEB. NEB SCH ×4 (06:15→22:25)
[2018-05-23] MEDS: HEPARIN NA (PORCINE) 5,000 UNITS/ML 1ML VIAL SQ SCH ×3 (06:16→21:39)
[2018-05-23 06:20] LABS: HEMATOCRIT 37.9 % (35.4-49); HEMOGLOBIN 12.6 GM/dL (11.7-16.9); LYMPH % 54.4 % (8-40); MCH 30.8 pg (25.7-33.7); MCHC 33.2 g/dl (32.0-35.9); MEAN CELL VOLUME 92.8 fl (80-96); MEAN PLT VOLUME 11.1 fl (7.5-11.1); MONO % 3.2 % (3.8-10.2); NEUT % 41.4 % (42.8-82.8); PLATELET COUNT 220 K/MM3 (134-434); RBC 4.09 M/mm3 (4.00-5.60); RDW 15.1 % (11.9-15.9); WHITE BLOOD COUNT 14.5 K/mm3 (4.0-10.0)
[2018-05-23 06:57] LABS: ALBUMIN 1.7 g/dl (3.4-5.0); ALK PHOS 98 U/L (45-117); ANION GAP 17 MMOL/L (8-16); BILIRUBIN,TOTAL 0.9 mg/dL (0.2-1.0); BLOOD UREA NITROGEN 48 mg/dL (7-18); CALCIUM 7.5 mg/dL (8.5-10.1); CHLORIDE 100 mmol/L (98-107); CO2 24 mmol/L (21-32); CREATININE 1.5 mg/dL (0.7-1.3); GLUCOSE,RANDOM 198 mg/dL (74-106); MAGNESIUM 2.2 mg/dL (1.8-2.4); PHOSPHOROUS 2.9 mg/dL (2.5-4.9); POTASSIUM 3.6 mmol/L (3.5-5.1); SGOT/AST 79 U/L (15-37); SGPT/ALT 46 U/L (12-78); SODIUM 141 mmol/L (136-145); TOT PROT 5.6 g/dl (6.4-8.2)
[2018-05-23] MEDS ORDERED: PT OWN MED DRAWER 7, Y5N ONE ×3 (09:06→15:27)
[2018-05-23] MEDS ORDERED: POTASSIUM CHLORIDE TABS 20 MEQ TABLET.ER (FP) PO ONE (09:45)
[2018-05-23] MEDS: NICOTINE 21 MG/24 HOURS TOPICAL PATCH TD SCH (09:47)
[2018-05-23] MEDS: ASPIRIN 81 MG CHEWABLE TABLETS PO SCH (09:48)
[2018-05-23] MEDS: FUROSEMIDE INJECTION 100 MG in DEXTROSE 5%-WATER - 40 ML IVPB SCH (09:50)
[2018-05-23] MEDS: MUPIROCIN 2% TOPICAL OINTMENT FOR DECOLONIZATION NS SCH (09:52)
[2018-05-23] MEDS ORDERED: ALLOPURINOL 300 MG TABLET (FP) PO SCH (10:00)
[2018-05-23] MEDS ORDERED: PANTOPRAZOLE 40 MG TABLET (FP) PO SCH (10:00)
--- NOTE | 2018-05-23 11:37 | PN ---
Teaching Attending Note Name of Resident: Anup Sheikh ATTENDING PHYSICIAN STATEMENT I saw and evaluated the patient. I reviewed the resident's note and discussed the case with the resident. I agree with the resident's findings and plan as documented. SUBJECTIVE: Pt seen and examined in the ICU. Remains on lasix and dobutamine gtts. Legionella antigen positive, antibiotics changed to levaquin. OBJECTIVE: Vital Signs Period Temp Pulse Resp BP Sys/Reyes Pulse Ox Last 24 Hr 97.6 F-98.6 F 68-89 14-38 78-111/60-96 90-99 Intake & Output 05/20/18 05/21/18 05/22/18 05/23/18 23:59 23:59 23:59 23:59 Intake Total 667 489 0504 404 Output Total 900 1900 Balance 550 -300 -780 404 Weight 62.397 kg 63.758 kg 63.957 kg 63.7 kg Gen: less tachypneic Heart: RRR Lung: bibasilar rales Abd: soft, nontender Ext: no edema CBC, BMP 05/23/18 05:30 05/23/18 05:30 Active Medications Albuterol Sulfate (Ventolin 0.083% Nebulizer Soln -) 1 amp NEB Q2H PRN PRN Reason: SHORT OF BREATH/WHEEZING Albuterol/Ipratropium (Duoneb -) 1 amp NEB Q4HWA [facility] Last Admin: 05/23/18 09:32 Dose: 1 amp Allopurinol (Zyloprim -) 300 mg PO DAILY [facility] Aspirin (Asa -) 81 mg PO DAILY [facility] Last Admin: 05/23/18 09:48 Dose: 81 mg Atorvastatin Calcium (Lipitor -) 10 mg PO HS [facility] Last Admin: 05/22/18 21:27 Dose: 10 mg Chlorhexidine Gluconate (Hibiclens For Decolonization -) 1 applic TP HS [facility] Last Admin: 05/22/18 21:14 Dose: 1 applic Heparin Sodium (Porcine) (Heparin -) 5,000 unit SQ TID [facility] Last Admin: 05/23/18 06:16 Dose: 5,000 unit Piperacillin Sod/Tazobactam (Sod 3.375 gm/ Dextrose) 100 mls @ 200 mls/hr IVPB Q8H-IV [facility]; Protocol Last Admin: 05/23/18 09:49 Dose: 200 mls/hr Dobutamine HCl/Dextrose (Dobutamine 250 Mg/D5w -) 250,000 mcg in 250 mls @ 0.956 mls/hr IV TITR [facility]; Protocol Last Admin: 05/22/18 21:08 Dose: 0.25 mcg/kg/min, 0.956 mls/hr Levofloxacin (Levaquin 500 Mg Premixed Ivpb -) 500 mg in 100 mls @ 100 mls/hr IVPB DAILY [facility]; Protocol Last Admin: 05/23/18 09:47 Dose: 100 mls/hr Melatonin (Melatonin) 1 mg PO HS PRN PRN Reason: INSOMNIA Metoprolol Tartrate (Lopressor Injection -) 5 mg IVPUSH Q4H PRN PRN Reason: HYPERTENSION Mupirocin (Bactroban Ointment (For Decolonization) -) 1 applic NS BID [facility] Stop: 05/25/18 21:59 Last Admin: 05/23/18 09:52 Dose: 1 applic Nicotine (Nicoderm Patch -) 21 mg TD DAILY [facility] Last Admin: 05/23/18 09:47 Dose: 21 mg Pantoprazole Sodium (Protonix -) 40 mg PO DAILY [facility] Last Admin: 05/23/18 09:48 Dose: 40 mg ASSESSMENT AND PLAN: Acute Hypoxic Respiratory Failure Pneumonia Acute Pulmonary Edema/LV Systolic Heart Failure Severe Mitral Regurgitation COPD CAD s/p CABG HTN Hyperipidemia - continue antibiotics, monitor QTc - hold lasix today - continue dobutamine gtt - monitor urine output, creatinine - inhaled bronchodilators - O2 to keep SpO2 >90% - BiPAP as needed to assist in work of breathing - replete lytes - DVT prophylaxis - can monitor on telemetry critical care time spent in reviewing chart, evaluating patient and formulating plan 35 min
--- NOTE | 2018-05-23 12:03 | PN ---
Physical Exam: SUBJECTIVE: Patient seen and examined. Pt. had no acute events overnight. Pt. had 2 bowel movements last night. Pt. endorses feeling better. Pt. states that problems started 7-8 months ago during a hospital admission when he was given an Abx. that starts with "A" ( Azithromycin?) during a COPD exacerbation. Pt. states that his legs have felt weak ever since. OBJECTIVE: Vital Signs Period Temp Pulse Resp BP Sys/Reyes Pulse Ox Last 24 Hr 97.6 F-98.6 F 68-89 14-38 78-111/60-96 90-99 GENERAL: The patient is awake, alert, and fully oriented, lying in bed in no acute distress. EYES: Proptosis, beige colored sclera ENT: moist mucous membranes. LUNGS: Breath sounds equal, clear to auscultation anteriorly, no wheezes, diffuse crackles in dependant portions of lung( posterior), no accessory muscle use. HEART: Regular rate and rhythm, S1, S2 without murmur ABDOMEN: Soft, nontender, nondistended, normoactive bowel sounds, no guarding, no rebound, Jacob in place draining clear christine colored urine EXTREMITIES: cool to touch, well-perfused, no edema, no calf tenderness, cap. refill less than 2 seconds, finger clubbing present PSYCH: Normal mood, normal affect. SKIN: Warm, dry, normal turgor Laboratory Results - last 24 hr 05/22/18 05/22/18 05/23/18 13:30 19:30 05:30 WBC RBC Hgb Hct MCV MCH MCHC RDW Plt Count MPV Absolute Neuts (auto) Neutrophils % Lymphocytes % Monocytes % Eosinophils % Basophils % Nucleated RBC % Sodium Potassium 3.7 Chloride Carbon Dioxide Anion Gap BUN Creatinine Creat Clearance w eGFR Random Glucose Calcium Phosphorus 1.9 L Magnesium 2.3 Total Bilirubin AST ALT Alkaline Phosphatase Total Protein Albumin Random Vancomycin 17.64 Vancomycin Pre-Dose 27.00 H* 05/23/18 05/23/18 05:30 05:30 WBC 14.5 H RBC 4.09 Hgb 12.6 Hct 37.9 MCV 92.8 MCH 30.8 MCHC 33.2 RDW 15.1 Plt Count 220 D MPV 11.1 Absolute Neuts (auto) 6.0 Neutrophils % 41.4 L D Lymphocytes % 54.4 H D Monocytes % 3.2 L Eosinophils % 0.0 Basophils % 1.0 D Nucleated RBC % 0 Sodium 141 Potassium 3.6 Chloride 100 Carbon Dioxide 24 Anion Gap 17 H BUN 48 H Creatinine 1.5 H Creat Clearance w eGFR 46.54 Random Glucose 198 H Calcium 7.5 L Phosphorus 2.9 D Magnesium 2.2 Total Bilirubin 0.9 AST 79 H D ALT 46 Alkaline Phosphatase 98 Total Protein 5.6 L Albumin 1.7 L Random Vancomycin Vancomycin Pre-Dose Active Medications Current Medications Albuterol Sulfate (Ventolin 0.083% Nebulizer Soln -) 1 amp NEB Q2H PRN PRN Reason: SHORT OF BREATH/WHEEZING Albuterol/Ipratropium (Duoneb -) 1 amp NEB Q4HWA [facility] Last Admin: 05/23/18 09:32 Dose: 1 amp Allopurinol (Zyloprim -) 300 mg PO DAILY [facility] Aspirin (Asa -) 81 mg PO DAILY [facility] Last Admin: 05/23/18 09:48 Dose: 81 mg Atorvastatin Calcium (Lipitor -) 10 mg PO HS [facility] Last Admin: 05/22/18 21:27 Dose: 10 mg Chlorhexidine Gluconate (Hibiclens For Decolonization -) 1 applic TP HS [facility] Last Admin: 05/22/18 21:14 Dose: 1 applic Heparin Sodium (Porcine) (Heparin -) 5,000 unit SQ TID [facility] Last Admin: 05/23/18 06:16 Dose: 5,000 unit Piperacillin Sod/Tazobactam (Sod 3.375 gm/ Dextrose) 100 mls @ 200 mls/hr IVPB Q8H-IV [facility]; Protocol Last Admin: 05/23/18 09:49 Dose: 200 mls/hr Dobutamine HCl/Dextrose (Dobutamine 250 Mg/D5w -) 250,000 mcg in 250 mls @ 0.956 mls/hr IV TITR [facility]; Protocol Last Admin: 05/22/18 21:08 Dose: 0.25 mcg/kg/min, 0.956 mls/hr Levofloxacin (Levaquin 500 Mg Premixed Ivpb -) 500 mg in 100 mls @ 100 mls/hr IVPB DAILY [facility]; Protocol Last Admin: 05/23/18 09:47 Dose: 100 mls/hr Melatonin (Melatonin) 1 mg PO HS PRN PRN Reason: INSOMNIA Metoprolol Tartrate (Lopressor Injection -) 5 mg IVPUSH Q4H PRN PRN Reason: HYPERTENSION Mupirocin (Bactroban Ointment (For Decolonization) -) 1 applic NS BID [facility] Stop: 05/25/18 21:59 Last Admin: 05/23/18 09:52 Dose: 1 applic Nicotine (Nicoderm Patch -) 21 mg TD DAILY [facility] Last Admin: 05/23/18 09:47 Dose: 21 mg Pantoprazole Sodium (Protonix -) 40 mg PO DAILY [facility] Last Admin: 05/23/18 09:48 Dose: 40 mg ASSESSMENT/PLAN: Patient is a 67 y/o male with a history of alcohol abuse, COPD, CHF, CAD 2/p CABG, HTN, HLD who presents with sepsis 2/2 to pneumonia complicated by CHF exacerbation. #Cardiology Acute on Chronic CHF exacerbation - Hold Lasix drip as Creatinine increased from 1.2--> 1.5 (05/23/18) - C/w Dobutamine drip @ 0.25mcg/kg/min - EKG: shows QTc of 519, decreased from 540 yesterday. If QTc starts to increase we will decrease Levaquin dose. - Echo: EF 15-20%, severe global hypokinesis of LV, RV is mildly reduced in function. LA is severely dilated. RA is moderately dilated. Mild to mod mitral valve thickening. Severe MR - CXR: showed haziness of left lung with obscuring of the cardiac silhouette , some hilar congestion vs. infiltrates. - Cardiology consult appreciated- Stress MIBI when stable to evaluate coronary arteries and evaluate ICD placement as outpatient #Pulmonology Acute hypoxic respiratory failure 2/2 to pneumonia complicated by COPD exacerbation/CHF exacerbation - currently off ventimask on 5L NC saturating at 95% - CXR showed haziness of left lung with obscuring of the cardiac silhouette, some hilar congestion vs. infiltrates. - less likely to be COPD exacerbation as there is no effusion, more likely to be 2/2 CHF exacerbation. - duonebs q4 - albuterol q2h prn - D/C-ed steroids Tobacco - c/w nicotine patch 21mg #Infectious Disease Pneumonia - CXR showed haziness of left lung with obscuring of the cardiac silhouette, some hilar congestion vs. infiltrates. - Started Levaquin 500mg (Day 1) Day 4 of total Abx. If Creatinine continues to rise may need to decrease Levaquin dose. - Zosyn D/C-ed, D/C-ed Vanc, D/C-ed Azythromycin 500mg as this can prolong QTc more than Levaquin - lactic acidosis resolved - f/u sputum cx, blood cx Suspected UTI -negative UA x2 #GI Transaminitis 2/2 to alcohol use vs sepsis - resolved - Ativan PRN - EtOH level: less than 5.0 - Abd. CT in September 2017: moderate hiatal hernia, diffuse fatty liver, hypodense splenic mass likely representing hemangioma Alcohol abuse - resolved Ppx. - protonix 40 IV mg daily #Neurology lethargic 2/2 to acute respiratory failure - monitor patient off Ventimask - Pt. currently on 5L NC, saturation at 95% - Pt. is awake, alert and in NAD - baseline A&Ox3, walks with cane #MSK Degeneartive joint disesae - history: stable #FEN - hold fluids, lactic acid resolved - cholesterol, fat and sodium restricted diet - Jacob in place - Potassium repleted, keep K+ between 4-5 b/c of Pt.s cardiac history - f/u urine creatinine, sodium and urea to assess if elevated Creatinine is d /t Lasix. #Dispo: Telemetry Visit type - Emergency Visit Emergency Visit: Yes ED Registration Date: 05/20/18 Care time: The patient presented to the Emergency Department on the above date and was hospitalized for further evaluation of their emergent condition. - New Patient This patient is new to me today: No - Critical Care Critical Care patient: No - Discharge Referral Referred to [facility] No
--- NOTE | 2018-05-23 13:18 | PN ---
Teaching Attending Note Name of Resident: Frantz Penny ATTENDING PHYSICIAN STATEMENT I saw and evaluated the patient. I reviewed the resident's note and discussed the case with the resident. I agree with the resident's findings and plan as documented. SUBJECTIVE:breathing is improving. continues to have non productive cough. able to lay flat at bedtime. denies Cp, SOB, fever, chills, N/V/C/D OBJECTIVE: Last Vital Signs Temp Pulse Resp BP Pulse Ox 98.5 F 75 25 H 99/73 90 L 05/23/18 10:00 05/23/18 10:00 05/23/18 10:00 05/23/18 10:00 05/23/18 09:30 Intake & Output 05/20/18 05/21/18 05/22/18 05/23/18 23:59 23:59 23:59 23:59 Intake Total 322 699 0611 404 Output Total 900 1900 Balance 550 -300 -780 404 Weight 137 lb 9 oz 140 lb 9 oz 141 lb 140 lb 6.951 oz General NAD CV S1 S2 RRR Lungs crackles B/L bases no wheezing Abdomen soft NT/ND Extremities no pedal edema ASSESSMENT AND PLAN: 67 yo M with PMHx of CAD s/p CABG (2002), CHF (?systolic vs diastolic), active heavy smoker x35 years, COPD, HTN, HLD admitted with acute hypoxic respiratory failure. 1. Acute hypoxic respiratory failure likely from sepsis with Multifocal PNA/ Acute systolic HF exacerbation +/- COPD exacerbation- clinically improved. cont of treatment for PNA and volume overload. off steroids. saturating well on NC. cont with diuresis and PNA management. bipap HS. further titration of supplemental oxygen. critical care on board 2. Severe systolic dysfunction with very poor EF - reports he had normal echo 6 months. will need to obtain reports. on lasix and dobutamine ggt. will cont for now further management per cardio. will likely require cardiac cath when medically optimized. will likely need life vest on discharge. 3. Sepsis due to PNA- +legionella. on zosyn/levaquin day 5 of total abx therapy. clinically improved. cont current management 4. Hyponatremia- hypervolumeic. now resolved 5. hypokalemia- Kcl po 6. Hypophosphatemia- resolved 7. OLIMPIA- due to sepsis. liekly now medication induced with over diuresis. cont to require diuresis. will monitor renal function closely 8. Continuosu nicotine dependence- nicotine patch. counselled on tobacco cessation. claims he is done with cigarettes. support 9. HTN- controlled 10. Multifocal Atrial tachycardia 11. Prolonged QT- daily EKG 12. DVT ppx- Hep sq 13. MICU monitoring for tennuous breathing status The care of this patient involved high complexity decision making to prevent further life threatening deterioration of the patient's condition and/or to evaluate & treat vital organ system(s) failure or risk of failure. 40 minutes
--- NOTE | 2018-05-23 13:22 | PN ---
Physical Exam: SUBJECTIVE: Patient seen and examined this AM. He states that he is feeling much better today. He says that his shortness of breath is improving and that his weakness is currently resolved. Denies any fevers, chills, chest pain, abdominal pain, n/v/d, weakness. OBJECTIVE: Vital Signs Period Temp Pulse Resp BP Sys/Reyes Pulse Ox Last 24 Hr 97.6 F-98.6 F 68-89 14-38 78-111/60-96 90-99 GENERAL: A&O, no acute distress HEAD: Normocephalic, atraumatic. EYES: PERRL, no scleral icterus EARS, NOSE, THROAT: oropharynx clear without exudates. Moist mucous membranes. NECK: supple without lymphadenopathy LUNGS: Some diffuse crackles HEART: Regular rate and rhythm, normal S1 and S2 without murmur ABDOMEN: Soft, nontender to palpation, normoactive bowel sounds MUSCULOSKELETAL: No bony deformities or tenderness. EXTREMITIES: 2+ pulses, warm, well-perfused. No peripheral edema. NEUROLOGICAL: Cranial nerves II-XII grossly intact. Normal speech. 5/5 strength in all extremities. PSYCHIATRIC: Cooperative. Good eye contact. Appropriate mood and affect. SKIN: Warm, dry, no rashes or lesions noted Laboratory Results - last 24 hr 05/22/18 05/22/18 05/23/18 13:30 19:30 05:30 WBC RBC Hgb Hct MCV MCH MCHC RDW Plt Count MPV Absolute Neuts (auto) Neutrophils % Lymphocytes % Monocytes % Eosinophils % Basophils % Nucleated RBC % Sodium Potassium 3.7 Chloride Carbon Dioxide Anion Gap BUN Creatinine Creat Clearance w eGFR Random Glucose Calcium Phosphorus 1.9 L Magnesium 2.3 Total Bilirubin AST ALT Alkaline Phosphatase Total Protein Albumin Random Vancomycin 17.64 Vancomycin Pre-Dose 27.00 H* 05/23/18 05/23/18 05:30 05:30 WBC 14.5 H RBC 4.09 Hgb 12.6 Hct 37.9 MCV 92.8 MCH 30.8 MCHC 33.2 RDW 15.1 Plt Count 220 D MPV 11.1 Absolute Neuts (auto) 6.0 Neutrophils % 41.4 L D Lymphocytes % 54.4 H D Monocytes % 3.2 L Eosinophils % 0.0 Basophils % 1.0 D Nucleated RBC % 0 Sodium 141 Potassium 3.6 Chloride 100 Carbon Dioxide 24 Anion Gap 17 H BUN 48 H Creatinine 1.5 H Creat Clearance w eGFR 46.54 Random Glucose 198 H Calcium 7.5 L Phosphorus 2.9 D Magnesium 2.2 Total Bilirubin 0.9 AST 79 H D ALT 46 Alkaline Phosphatase 98 Total Protein 5.6 L Albumin 1.7 L Random Vancomycin Vancomycin Pre-Dose Active Medications Generic Name Dose Route Start Last Admin Trade Name Freq PRN Reason Stop Dose Admin Albuterol Sulfate 1 amp 05/20/18 16:51 Ventolin 0.083% Nebulizer Soln - NEB Q2H PRN SHORT OF BREATH/WHEEZING Albuterol/Ipratropium 1 amp 05/20/18 18:00 05/23/18 09:32 Duoneb - NEB 1 amp Q4HWA ELLIE Administration Allopurinol 300 mg 05/23/18 10:00 Zyloprim - PO DAILY ELLIE Aspirin 81 mg 05/21/18 10:00 05/23/18 09:48 Asa - PO 81 mg DAILY ELLIE Administration Atorvastatin Calcium 10 mg 05/20/18 22:00 05/22/18 21:27 Lipitor - PO 10 mg HS ELLIE Administration Chlorhexidine Gluconate 1 applic 05/20/18 22:00 05/22/18 21:14 Hibiclens For Decolonization - TP 1 applic HS ELLIE Administration Heparin Sodium (Porcine) 5,000 unit 05/20/18 22:00 05/23/18 06:16 Heparin - SQ 5,000 unit TID ELLIE Administration Piperacillin Sod/Tazobactam 100 mls @ 200 mls/hr 05/20/18 18:00 05/23/18 09: 49 Sod 3.375 gm/ Dextrose IVPB 200 mls/hr Q8H-IV ELLIE Administration Protocol Dobutamine HCl/Dextrose 250,000 mcg in 250 mls @ 0.956 mls/hr 05/21/18 19:15 05/22/18 21:08 Dobutamine 250 Mg/D5w - IV 0.25 mcg/kg/min TITR ELLIE 0.956 mls/hr Administration Protocol 0.25 MCG/KG/MIN Levofloxacin 500 mg in 100 mls @ 100 mls/hr 05/23/18 10:00 05/23/18 09:47 Levaquin 500 Mg Premixed Ivpb - IVPB 100 mls/hr DAILY ELLIE Administration Protocol Melatonin 1 mg 05/22/18 22:00 Melatonin PO HS PRN INSOMNIA Metoprolol Tartrate 5 mg 05/20/18 17:26 Lopressor Injection - IVPUSH Q4H PRN HYPERTENSION Mupirocin 1 applic 05/20/18 22:00 05/23/18 09:52 Bactroban Ointment (For Decolonization) - NS 05/25/18 21:59 1 applic BID ELLIE Administration Nicotine 21 mg 05/21/18 10:00 05/23/18 09:47 Nicoderm Patch - TD 21 mg DAILY ELLIE Administration Pantoprazole Sodium 40 mg 05/23/18 10:00 05/23/18 09:48 Protonix - PO 40 mg DAILY ELLIE Administration ASSESSMENT/PLAN: 67 yo male with PMH CAD (s/p CABG), CHF, COPD, HTN, HLD, EtOH abuse admitted with SOB and weakness Acute Hypoxic Respiratory Failure with COPD history -Respiratory status improving, no longer requiring bilevel ventilation during the day -Pt is saturating well on 5 L NC -Duonebs Q4 ELLIE -Albuterol Neb Q2 PRN Systolic Heart Failure -Echo noted: Severe LV systolic dysfunction, EF 15-20% -Cardiology Consult Appreciated Restudy coronaries and ICD eval when stable -Hold lasix drip for now as Cr increasing. Pneumonia -CXR, b/l congestive changes left greater than right, improving each day -Urine legionella presumed positive, awaiting final result -Pt is afebrile, WBC 14.5 today, up from 12. yesterday -Pt with prolonged QTc on ECG -Being given Levaquin 500 mg IV Daily CAD -With no acute signs of ischemia -ASA HTN -Hold bp meds due to Hypotension, -Lopressor 5mg Q4 PRN HTN if HR >110 HLD -Lipitor 10 mg PO HS Prolonged QTc -Pt on QT prolonging agents, Levaquin and Macrolides both cause QTc prolongation -Pt requires Abx for atypical pneumonia likely Legionella -Pt on cardiac monitoring in ICU and will require telemetry on transfer -Daily ECGs Tobacco use -Nicoderm patch daily DVT Prophylaxis -Heparin 5000 units SQ TID FEN -Fluids: none -Electrolytes: K 3.6, repleted, BMP in AM -Nutrition: Chol/Fat/Sodium Restricted diet Disposition Can be transferred to Telemetry Visit type - Emergency Visit Emergency Visit: Yes ED Registration Date: 05/20/18 Care time: The patient presented to the Emergency Department on the above date and was hospitalized for further evaluation of their emergent condition. - New Patient This patient is new to me today: Yes Date on this admission: 05/24/18 - Critical Care Critical Care patient: Yes Total Critical Care Time (in minutes): 35 Critical Care Statement: The care of this patient involved high complexity decision making to prevent further life threatening deterioration of the patient 's condition and/or to evaluate & treat vital organ system(s) failure or risk of failure.
--- NOTE | 2018-05-23 14:17 | PN ---
Progress Note (short form) - Note Progress Note: alert now on nasal canulla looks well Vital Signs Period Temp Pulse Resp BP Sys/Reyes Pulse Ox Last 24 Hr 97.6 F-98.6 F 68-85 14-38 86-111/63-96 90-99 cor-rrr lungs decreased bs at bases abd soft, nt ext no edema CBC, BMP 05/23/18 05:30 05/23/18 05:30 Microbiology 05/20/18 12:00 Blood - Peripheral Venous Blood Culture - Preliminary NO GROWTH OBTAINED AFTER 72 HOURS, INCUBATION TO CONTINUE FOR 2 DAYS. 05/20/18 12:00 Blood - Peripheral Venous Blood Culture - Preliminary NO GROWTH OBTAINED AFTER 72 HOURS, INCUBATION TO CONTINUE FOR 2 DAYS. 05/20/18 18:00 Urine - Urine Clean Catch Legionella Antigen - Final 05/20/18 18:00 Urine - Urine Clean Catch Streptococcus pneumoniae Antigen ( M - Final 05/20/18 18:00 Urine - Urine Clean Catch Urine Culture - Final NO GROWTH OBTAINED POSITIVE legionella antigen HIV negative Current Medications Albuterol Sulfate (Ventolin 0.083% Nebulizer Soln -) 1 amp NEB Q2H PRN PRN Reason: SHORT OF BREATH/WHEEZING Albuterol/Ipratropium (Duoneb -) 1 amp NEB Q4HWA [facility] Last Admin: 05/23/18 09:32 Dose: 1 amp Allopurinol (Zyloprim -) 300 mg PO DAILY ELLIE Aspirin (Asa -) 81 mg PO DAILY [facility] Last Admin: 05/23/18 09:48 Dose: 81 mg Atorvastatin Calcium (Lipitor -) 10 mg PO HS [facility] Last Admin: 05/22/18 21:27 Dose: 10 mg Chlorhexidine Gluconate (Hibiclens For Decolonization -) 1 applic TP HS [facility] Last Admin: 05/22/18 21:14 Dose: 1 applic Heparin Sodium (Porcine) (Heparin -) 5,000 unit SQ TID [facility] Last Admin: 05/23/18 14:12 Dose: 5,000 unit Dobutamine HCl/Dextrose (Dobutamine 250 Mg/D5w -) 250,000 mcg in 250 mls @ 0.956 mls/hr IV TITR ELLIE; Protocol Last Admin: 05/22/18 21:08 Dose: 0.25 mcg/kg/min, 0.956 mls/hr Levofloxacin (Levaquin 500 Mg Premixed Ivpb -) 500 mg in 100 mls @ 100 mls/hr IVPB DAILY [facility]; Protocol Last Admin: 05/23/18 09:47 Dose: 100 mls/hr Melatonin (Melatonin) 1 mg PO HS PRN PRN Reason: INSOMNIA Metoprolol Tartrate (Lopressor Injection -) 5 mg IVPUSH Q4H PRN PRN Reason: HYPERTENSION Mupirocin (Bactroban Ointment (For Decolonization) -) 1 applic NS BID [facility] Stop: 05/25/18 21:59 Last Admin: 05/23/18 09:52 Dose: 1 applic Nicotine (Nicoderm Patch -) 21 mg TD DAILY [facility] Last Admin: 05/23/18 09:47 Dose: 21 mg Pantoprazole Sodium (Protonix -) 40 mg PO DAILY [facility] Last Admin: 05/23/18 09:48 Dose: 40 mg a/p multilobar pneumonia-legionella!, sputum sent, switch to levaquin today, watch dosing with changing renal function CHF- EF 15-20% COPD continue levaquin watch renal function monitor ekg and electrolytes overall improved day #4 antbiotics for legionella d/w ICU residents
[2018-05-23 14:20] LABS: ANISOCYTOSIS 1+; MACROCYTOSIS 1+
--- NOTE | 2018-05-23 14:33 | EKG ---
Test Reason : Blood Pressure : / mmHG Vent. Rate : 078 BPM Atrial Rate : 078 BPM P-R Int : 124 ms QRS Dur : 108 ms QT Int : 456 ms P-R-T Axes : 062 051 108 degrees QTc Int : 519 ms POOR DATA QUALITY, INTERPRETATION MAY BE ADVERSELY AFFECTED SINUS RHYTHM WITH OCCASIONAL PREMATURE VENTRICULAR COMPLEXES LATERAL INFARCT , AGE UNDETERMINED ABNORMAL ECG WHEN COMPARED WITH ECG OF 22-MAY-2018 12:51, PREMATURE SUPRAVENTRICULAR COMPLEXES ARE NO LONGER PRESENT Confirmed by Denzel Zabala ([id number]) on 05/23/2018 2:33:08 PM Referred By: ESHA JOHN,MONROEQLLO Confirmed By:Denzel Zabala
[2018-05-23] MEDS: ALLOPURINOL 100 MG TABLET (FP) PO SCH (15:59)
[2018-05-23] MEDS ORDERED: MELATONIN 1 MG TABLET PO PRN (18:03)
[2018-05-23] MEDS ORDERED: METOPROLOL TARTRATE 5 MG/5 ML VIAL IVPUSH PRN (18:03)
[2018-05-23] MEDS ORDERED: ALBUTEROL SO4 0.083% IH SOL 2.5 MG/3 ML VIAL.NEB. NEB PRN (18:03)
[2018-05-23] MEDS: DOBUTAMINE 250 MG/D5W - 250,000 MCG/250 ML INFUS.BAG IV SCH (19:35)
[2018-05-23] MEDS: ATORVASTATIN CA 10 MG TABLET (FP) PO SCH (21:39)
[2018-05-23] MEDS ORDERED: CHLORHEXIDINE GLUCONATE 4% CLEANSER FOR DECOLONIZATION TP SCH (22:00)
[2018-05-23] MEDS ORDERED: MUPIROCIN 2% TOPICAL OINTMENT FOR DECOLONIZATION NS SCH (22:00)
[2018-05-24] MEDS: HEPARIN NA (PORCINE) 5,000 UNITS/ML 1ML VIAL SQ SCH ×3 (05:47→21:50)
[2018-05-24] MEDS: ALBUTEROL SO4 2.5/IPRATROPIUM 0.5 INH SOL 3 ML VIAL.NEB. NEB SCH ×5 (06:00→21:30)
[2018-05-24 06:17] LABS: HEMATOCRIT 35.6 % (35.4-49); HEMOGLOBIN 11.6 GM/dL (11.7-16.9); MCH 30.4 pg (25.7-33.7); MCHC 32.7 g/dl (32.0-35.9); MEAN CELL VOLUME 92.9 fl (80-96); MEAN PLT VOLUME 10.8 fl (7.5-11.1); PLATELET COUNT 277 K/MM3 (134-434); RBC 3.83 M/mm3 (4.00-5.60); RDW 15.3 % (11.9-15.9); WHITE BLOOD COUNT 12.6 K/mm3 (4.0-10.0)
[2018-05-24 06:57] LABS: ANION GAP 11 MMOL/L (8-16); BLOOD UREA NITROGEN 52 mg/dL (7-18); CALCIUM 7.8 mg/dL (8.5-10.1); CHLORIDE 102 mmol/L (98-107); CO2 27 mmol/L (21-32); CREATININE 1.3 mg/dL (0.7-1.3); GLUCOSE,RANDOM 227 mg/dL (74-106); PHOSPHOROUS 2.8 mg/dL (2.5-4.9); POTASSIUM 3.7 mmol/L (3.5-5.1); SODIUM 140 mmol/L (136-145)
--- NOTE | 2018-05-24 09:53 | PN ---
Physical Exam: SUBJECTIVE: Patient seen and examined this AM. States he is feeling better today than yesterday. Says his breathing is improving each day and that he is no longer weak. Pt is requesting to get out of the bed today and possibly work with physical therapy. Denies any fever, chills, headache, SOB, chest pain, leg weakness. OBJECTIVE: Vital Signs Period Temp Pulse Resp BP Sys/Reyes Pulse Ox Last 24 Hr 97.6 F-98.6 F 75-86 20-29 98-124/70-79 94-97 GENERAL: A&O, no acute distress HEAD: Normocephalic, atraumatic. EYES: PERRL, discoloration of sclera (beige colored), proptosis noted EARS, NOSE, THROAT: oropharynx clear without exudates. Moist mucous membranes. NECK: supple without lymphadenopathy LUNGS: Some diffuse crackles, improved today compared with yesterday HEART: Regular rate and rhythm, normal S1 and S2 without murmur ABDOMEN: Soft, nontender to palpation, normoactive bowel sounds MUSCULOSKELETAL: No bony deformities or tenderness. EXTREMITIES: 2+ pulses, warm, well-perfused. No peripheral edema. NEUROLOGICAL: Cranial nerves II-XII grossly intact. Normal speech. 5/5 strength in all extremities. PSYCHIATRIC: Cooperative. Good eye contact. Appropriate mood and affect. SKIN: Warm, dry, no rashes or lesions noted Laboratory Results - last 24 hr 05/23/18 05/23/18 05/23/18 05:30 14:00 14:00 WBC RBC Hgb Hct MCV MCH MCHC RDW Plt Count MPV Total Counted 100 Neutrophils % (Manual) 85.0 H D Band Neutrophils % 5.0 Lymphocytes % (Manual) 4.0 L Monocytes % (Manual) 5 Eosinophils % (Manual) 1.0 D Nucleated RBC % 1 H Anisocytosis 1+ Macrocytosis 1+ Sodium Potassium Chloride Carbon Dioxide Anion Gap BUN Creatinine Creat Clearance w eGFR Random Glucose Calcium Phosphorus Magnesium Ur Random Sodium 58 Urine Creatinine 34.9 05/24/18 05/24/18 05:30 05:30 WBC 12.6 H RBC 3.83 L Hgb 11.6 L Hct 35.6 MCV 92.9 MCH 30.4 MCHC 32.7 RDW 15.3 Plt Count 277 D MPV 10.8 Total Counted Neutrophils % (Manual) Band Neutrophils % Lymphocytes % (Manual) Monocytes % (Manual) Eosinophils % (Manual) Nucleated RBC % Anisocytosis Macrocytosis Sodium 140 Potassium 3.7 Chloride 102 Carbon Dioxide 27 Anion Gap 11 BUN 52 H Creatinine 1.3 Creat Clearance w eGFR 54.90 Random Glucose 227 H Calcium 7.8 L Phosphorus 2.8 Magnesium 2.0 Ur Random Sodium Urine Creatinine Active Medications Generic Name Dose Route Start Last Admin Trade Name Freq PRN Reason Stop Dose Admin Albuterol Sulfate 1 amp 05/23/18 18:03 Ventolin 0.083% Nebulizer Soln - NEB Q2H PRN SHORT OF BREATH/WHEEZING Albuterol/Ipratropium 1 amp 05/23/18 22:00 05/24/18 06:00 Duoneb - NEB 1 amp Q4HWA ELLIE Administration Allopurinol 300 mg 05/23/18 16:00 05/23/18 15:59 Zyloprim - PO 300 mg DAILY ELLIE Administration Aspirin 81 mg 05/24/18 10:00 Asa - PO DAILY ELLIE Atorvastatin Calcium 10 mg 05/23/18 22:00 05/23/18 21:39 Lipitor - PO 10 mg HS ELLIE Administration Heparin Sodium (Porcine) 5,000 unit 05/23/18 22:00 05/24/18 05:47 Heparin - SQ 5,000 unit TID ELLIE Administration Dobutamine HCl/Dextrose 250,000 mcg in 250 mls @ 0.956 mls/hr 05/23/18 18:03 05/23/18 19:35 Dobutamine 250 Mg/D5w - IV 0.25 mcg/kg/min TITR ELLIE 0.956 mls/hr Administration Protocol 0.25 MCG/KG/MIN Levofloxacin 500 mg in 100 mls @ 100 mls/hr 05/24/18 10:00 Levaquin 500 Mg Premixed Ivpb - IVPB DAILY [facility] Protocol Melatonin 1 mg 05/23/18 18:03 Melatonin PO HS PRN INSOMNIA Metoprolol Tartrate 5 mg 05/23/18 18:03 Lopressor Injection - IVPUSH Q4H PRN HYPERTENSION Nicotine 21 mg 05/24/18 10:00 Nicoderm Patch - TD DAILY ELLIE Pantoprazole Sodium 40 mg 05/24/18 10:00 Protonix - PO DAILY ELLIE ASSESSMENT/PLAN: 67 yo male with PMH CAD (s/p CABG), CHF, COPD, HTN, HLD, EtOH abuse admitted with SOB and weakness Acute Hypoxic Respiratory Failure with COPD history -Respiratory status improving, no longer requiring bilevel ventilation during the day -Pt is saturating well on 5L NC -Duonebs Q4 ELLIE -Albuterol Neb Q2 PRN Systolic Heart Failure -Echo noted: Severe LV systolic dysfunction, EF 15-20% -Cardiology Consult Appreciated Restudy coronaries and ICD eval when stable -Dobutamine drip as per cardiology management -Held lasix drip yesterday as Cr was increasing. Down to 1.5 today with BUN still rising, 52 Pneumonia -CXR, b/l congestive changes left greater than right, improving each day -Urine legionella presumed positive, awaiting final tracheal antigen result -Pt is afebrile, WBC 12.6 trending down -Pt with prolonged QTc on ECG -Being given Levaquin 500 mg IV Daily (Abx day 5) CAD -With no acute signs of ischemia -ASA HTN -Hold bp meds due to Hypotension, -Lopressor 5mg Q4 PRN HTN if HR >110 HLD -Lipitor 10 mg PO HS Prolonged QTc -Pt on QT prolonging agents, Levaquin and Macrolides both cause QTc prolongation -Pt requires Abx for atypical pneumonia likely Legionella -Pt monitored on telemetry bed with no overnight events noted -Daily ECGs Tobacco use -Nicoderm patch daily DVT Prophylaxis -Heparin 5000 units SQ TID -Early ambulation, OOB to chair, PT eval FEN -Fluids: none -Electrolytes: Mg 2.0, trending down, BMP in AM -Nutrition: Chol/Fat/Sodium Restricted diet Disposition Continue to monitor on Telemetry Visit type - Emergency Visit Emergency Visit: Yes ED Registration Date: 05/20/18 Care time: The patient presented to the Emergency Department on the above date and was hospitalized for further evaluation of their emergent condition. - New Patient This patient is new to me today: No - Critical Care Critical Care patient: No
[2018-05-24] MEDS ORDERED: ALLOPURINOL 300 MG TABLET (FP) PO SCH (10:00)
[2018-05-24] MEDS: PANTOPRAZOLE 40 MG TABLET (FP) PO SCH (10:25)
[2018-05-24] MEDS: NICOTINE 21 MG/24 HOURS TOPICAL PATCH TD SCH (10:25)
[2018-05-24] MEDS: ASPIRIN 81 MG CHEWABLE TABLETS PO SCH (10:26)
[2018-05-24] MEDS: ALLOPURINOL 100 MG TABLET (FP) PO SCH (10:26)
--- NOTE | 2018-05-24 10:38 | PN ---
Progress Note, Physician History of Present Illness: Patient is a 67 black man with history of CAD s/p CABG (denies hx NE), etoh abuse (drinks 1/3 bottle of gin per day; last drink ?2 days ago), current tobacco abuse (and for many years at 1/2-1 ppd), HTN, HLD, here today complaining of shortness of breath for the past 4 days. Patient states that he has chest pain in both sides when he takes a deep breath. Patient states that he noticed his eyes were proptotic starting this morning. Denies history of thyroid problems. Last drink was yesterday. Daughter endorses tactile fever. Denies history of blood clots. Denies leg swelling. - Current Medication List Current Medications: Active Medications Albuterol Sulfate (Ventolin 0.083% Nebulizer Soln -) 1 amp NEB Q2H PRN PRN Reason: SHORT OF BREATH/WHEEZING Albuterol/Ipratropium (Duoneb -) 1 amp NEB Q4HWA [facility] Last Admin: 05/24/18 10:16 Dose: 1 amp Allopurinol (Zyloprim -) 300 mg PO DAILY ELLIE Last Admin: 05/24/18 10:26 Dose: 300 mg Aspirin (Asa -) 81 mg PO DAILY ELLIE Last Admin: 05/24/18 10:26 Dose: 81 mg Atorvastatin Calcium (Lipitor -) 10 mg PO HS ELLIE Last Admin: 05/23/18 21:39 Dose: 10 mg Heparin Sodium (Porcine) (Heparin -) 5,000 unit SQ TID ELLIE Last Admin: 05/24/18 05:47 Dose: 5,000 unit Dobutamine HCl/Dextrose (Dobutamine 250 Mg/D5w -) 250,000 mcg in 250 mls @ 0.956 mls/hr IV TITR ELLIE; Protocol Last Admin: 05/23/18 19:35 Dose: 0.25 mcg/kg/min, 0.956 mls/hr Levofloxacin (Levaquin 500 Mg Premixed Ivpb -) 500 mg in 100 mls @ 100 mls/hr IVPB DAILY ELLIE; Protocol Last Admin: 05/24/18 10:25 Dose: 100 mls/hr Melatonin (Melatonin) 1 mg PO HS PRN PRN Reason: INSOMNIA Metoprolol Tartrate (Lopressor Injection -) 5 mg IVPUSH Q4H PRN PRN Reason: HYPERTENSION Nicotine (Nicoderm Patch -) 21 mg TD DAILY [facility] Last Admin: 05/24/18 10:25 Dose: 21 mg Pantoprazole Sodium (Protonix -) 40 mg PO DAILY [facility] Last Admin: 05/24/18 10:25 Dose: 40 mg - Objective Vital Signs: Vital Signs Temperature 98.2 F 05/24/18 06:00 Pulse Rate 86 05/24/18 08:31 Respiratory Rate 20 05/24/18 06:00 Blood Pressure 124/79 05/24/18 06:00 O2 Sat by Pulse Oximetry (%) 94 L 05/24/18 10:15 Eyes: Yes: WNL, Conjunctiva Clear, EOM Intact HENT: Yes: WNL, Atraumatic, Normocephalic Neck: Yes: WNL, Supple, Trachea Midline Cardiovascular: Yes: WNL, Regular Rate and Rhythm Respiratory: Yes: WNL, Regular, CTA Bilaterally Gastrointestinal: Yes: WNL, Normal Bowel Sounds Genitourinary: Yes: WNL Musculoskeletal: Yes: WNL Extremities: Yes: WNL Edema: No Integumentary: Yes: WNL Neurological: Yes: WNL, Alert, Oriented ...Motor Strength: WNL Psychiatric: Yes: WNL Labs: CBC, BMP 05/24/18 05:30 05/24/18 05:30 INR, PTT INR 1.04 (0.83-1.09) 05/20/18 12:00 Assessment/Plan - Problems (1) Pneumonia Assessment/Plan: F/u with medical esthetician, ID. Code(s): J18.9 - PNEUMONIA, UNSPECIFIED ORGANISM (2) HTN (hypertension) Code(s): I10 - ESSENTIAL (PRIMARY) HYPERTENSION (3) Hx of CABG Assessment/Plan: Pt says CABG was done in [place] in 2002. Code(s): Z95.1 - PRESENCE OF AORTOCORONARY BYPASS GRAFT (4) Hypoalbuminemia Code(s): E88.09 - OTH DISORDERS OF PLASMA-PROTEIN METABOLISM, NEC (5) [place] cardiac risk >20% in next 10 years Assessment/Plan: coronary artery evaluation (stress MIBI) when stable Code(s): Z91.89 - OTH PERSONAL RISK FACTORS, NOT ELSEWHERE CLASSIFIED (6) Nicotine addiction Assessment/Plan: pt agress to start nicotine patch. Code(s): F17.200 - NICOTINE DEPENDENCE, UNSPECIFIED, UNCOMPLICATED (7) Elevated LFTs Code(s): R94.5 - ABNORMAL RESULTS OF LIVER FUNCTION STUDIES (8) Acute respiratory distress Code(s): R06.03 - ACUTE RESPIRATORY DISTRESS (9) Acute on chronic systolic and diastolic heart failure, NYHA class 3 Assessment/Plan: Severely reduced LVEF. Continue dobutamine and furosemide. F/u BUN/Cr, electrolytes, Is and Os, daily weight. S/p CABG 2002 at [facility] (f/u records; ? also had valve surgery). Restudy coronary arteries, evaluate for ICD when stable. Pt says he "is finished" with cigarettes and alcohol. Code(s): I50.43 - ACUTE ON CHRONIC COMBINED SYSTOLIC AND DIASTOLIC HRT FAIL will need ischemia evaluation MIBI st vs c. cath ICD if no revascularization, when stable cc time 37 min
--- NOTE | 2018-05-24 10:44 | PN ---
Progress Note, Physician - Current Medication List Current Medications: Active Medications Albuterol Sulfate (Ventolin 0.083% Nebulizer Soln -) 1 amp NEB Q2H PRN PRN Reason: SHORT OF BREATH/WHEEZING Albuterol/Ipratropium (Duoneb -) 1 amp NEB Q4HWA [facility] Last Admin: 05/24/18 10:16 Dose: 1 amp Allopurinol (Zyloprim -) 300 mg PO DAILY [facility] Last Admin: 05/24/18 10:26 Dose: 300 mg Aspirin (Asa -) 81 mg PO DAILY [facility] Last Admin: 05/24/18 10:26 Dose: 81 mg Atorvastatin Calcium (Lipitor -) 10 mg PO HS [facility] Last Admin: 05/23/18 21:39 Dose: 10 mg Heparin Sodium (Porcine) (Heparin -) 5,000 unit SQ TID [facility] Last Admin: 05/24/18 05:47 Dose: 5,000 unit Dobutamine HCl/Dextrose (Dobutamine 250 Mg/D5w -) 250,000 mcg in 250 mls @ 0.956 mls/hr IV TITR [facility]; Protocol Last Admin: 05/23/18 19:35 Dose: 0.25 mcg/kg/min, 0.956 mls/hr Levofloxacin (Levaquin 500 Mg Premixed Ivpb -) 500 mg in 100 mls @ 100 mls/hr IVPB DAILY [facility]; Protocol Last Admin: 05/24/18 10:25 Dose: 100 mls/hr Melatonin (Melatonin) 1 mg PO HS PRN PRN Reason: INSOMNIA Metoprolol Tartrate (Lopressor Injection -) 5 mg IVPUSH Q4H PRN PRN Reason: HYPERTENSION Nicotine (Nicoderm Patch -) 21 mg TD DAILY [facility] Last Admin: 05/24/18 10:25 Dose: 21 mg Pantoprazole Sodium (Protonix -) 40 mg PO DAILY [facility] Last Admin: 05/24/18 10:25 Dose: 40 mg - Objective Vital Signs: Vital Signs Temperature 98.2 F 05/24/18 06:00 Pulse Rate 86 05/24/18 08:31 Respiratory Rate 20 05/24/18 06:00 Blood Pressure 124/79 05/24/18 06:00 O2 Sat by Pulse Oximetry (%) 94 L 05/24/18 10:15 Labs: CBC, BMP 05/24/18 05:30 05/24/18 05:30 INR, PTT INR 1.04 (0.83-1.09) 05/20/18 12:00 Problem List - Problems (1) HTN (hypertension) Code(s): I10 - ESSENTIAL (PRIMARY) HYPERTENSION (2) Hx of CABG Code(s): Z95.1 - PRESENCE OF AORTOCORONARY BYPASS GRAFT (3) Hypoalbuminemia Code(s): E88.09 - OTH DISORDERS OF PLASMA-PROTEIN METABOLISM, NEC (4) [place] cardiac risk >20% in next 10 years Code(s): Z91.89 - OTH PERSONAL RISK FACTORS, NOT ELSEWHERE CLASSIFIED (5) Nicotine addiction Code(s): F17.200 - NICOTINE DEPENDENCE, UNSPECIFIED, UNCOMPLICATED (6) Elevated LFTs Code(s): R94.5 - ABNORMAL RESULTS OF LIVER FUNCTION STUDIES (7) Acute respiratory distress Code(s): R06.03 - ACUTE RESPIRATORY DISTRESS (8) Acute on chronic systolic and diastolic heart failure, NYHA class 3 Assessment/Plan: Severely reduced LVEF. Continue dobutamine; furosemide was discontinued due to rising creatinine. F/u BUN/Cr, electrolytes, Is and Os, daily weight. S/p CABG 2002 at [facility] (f/u records; ? also had valve surgery). Restudy coronary arteries, evaluate for ICD when stable. Pt says he "is finished" with cigarettes and alcohol. Code(s): I50.43 - ACUTE ON CHRONIC COMBINED SYSTOLIC AND DIASTOLIC HRT FAIL (9) Sepsis Assessment/Plan: Pt needs antibiotics, but present classes may increased already prolonged QT. Agree with continuing Levoquin; daily monitoring of QT. F/u on telemetry for arrhythmias. Maintain electrolytes: K 4-4.5, Mg 2-2.4, PO4 2.5-4.9. Code(s): A41.9 - SEPSIS, UNSPECIFIED ORGANISM
--- NOTE | 2018-05-24 11:22 | PN ---
Progress Note (short form) - Note Progress Note: alert Vital Signs Period Temp Pulse Resp BP Sys/Reyes Pulse Ox Last 24 Hr 97.6 F-98.6 F 76-92 20-29 98-129/70-81 94-97 cor-rrr llungs decreased bs at bases abd soft,nt ext no edema CBC, BMP 05/24/18 05:30 05/24/18 05:30 cxray bilateral infiltrates POSITIVE legionella antigen HIV negative Microbiology 05/22/18 19:00 Transtracheal Aspiration Legionella Culture - Preliminary 05/20/18 12:00 Blood - Peripheral Venous Blood Culture - Preliminary NO GROWTH OBTAINED AFTER 72 HOURS, INCUBATION TO CONTINUE FOR 2 DAYS. 05/20/18 12:00 Blood - Peripheral Venous Blood Culture - Preliminary NO GROWTH OBTAINED AFTER 72 HOURS, INCUBATION TO CONTINUE FOR 2 DAYS. 05/20/18 18:00 Urine - Urine Clean Catch Legionella Antigen - Final 05/20/18 18:00 Urine - Urine Clean Catch Streptococcus pneumoniae Antigen ( M - Final 05/20/18 18:00 Urine - Urine Clean Catch Urine Culture - Final NO GROWTH OBTAINED Current Medications Albuterol Sulfate (Ventolin 0.083% Nebulizer Soln -) 1 amp NEB Q2H PRN PRN Reason: SHORT OF BREATH/WHEEZING Albuterol/Ipratropium (Duoneb -) 1 amp NEB Q4HWA [facility] Last Admin: 05/24/18 10:16 Dose: 1 amp Allopurinol (Zyloprim -) 300 mg PO DAILY [facility] Last Admin: 05/24/18 10:26 Dose: 300 mg Aspirin (Asa -) 81 mg PO DAILY [facility] Last Admin: 05/24/18 10:26 Dose: 81 mg Atorvastatin Calcium (Lipitor -) 10 mg PO HS [facility] Last Admin: 05/23/18 21:39 Dose: 10 mg Heparin Sodium (Porcine) (Heparin -) 5,000 unit SQ TID [facility] Last Admin: 05/24/18 05:47 Dose: 5,000 unit Dobutamine HCl/Dextrose (Dobutamine 250 Mg/D5w -) 250,000 mcg in 250 mls @ 0.956 mls/hr IV TITR [facility]; Protocol Last Admin: 05/23/18 19:35 Dose: 0.25 mcg/kg/min, 0.956 mls/hr Levofloxacin (Levaquin 500 Mg Premixed Ivpb -) 500 mg in 100 mls @ 100 mls/hr IVPB DAILY [facility]; Protocol Last Admin: 05/24/18 10:25 Dose: 100 mls/hr Melatonin (Melatonin) 1 mg PO HS PRN PRN Reason: INSOMNIA Metoprolol Tartrate (Lopressor Injection -) 5 mg IVPUSH Q4H PRN PRN Reason: HYPERTENSION Nicotine (Nicoderm Patch -) 21 mg TD DAILY [facility] Last Admin: 05/24/18 10:25 Dose: 21 mg Pantoprazole Sodium (Protonix -) 40 mg PO DAILY [facility] Last Admin: 05/24/18 10:25 Dose: 40 mg a/p multilobar pneumonia-legionella!, sputum sent, continue levaquin, watch dosing with changing renal function CHF- EF 15-20% COPD continue levaquin watch renal function monitor ekg and electrolytes overall improved day #5 antbiotics for legionella
[2018-05-24] MEDS ORDERED: POTASSIUM CHLORIDE ORAL LIQUID 20 MEQ/15 ML PO ONE (12:13)
--- NOTE | 2018-05-24 12:16 | PN ---
Teaching Attending Note Name of Resident: Frantz Penny ATTENDING PHYSICIAN STATEMENT I saw and evaluated the patient. I reviewed the resident's note and discussed the case with the resident. I agree with the resident's findings and plan as documented. SUBJECTIVE:states his breathing is better. denies Cp, SOB, fever, chills, N/V/C/ D OBJECTIVE: Last Vital Signs Temp Pulse Resp BP Pulse Ox 98 F 92 H 22 129/81 92 L 05/24/18 10:00 05/24/18 10:00 05/24/18 10:00 05/24/18 10:05/24/18 11:31 Intake & Output 05/21/18 05/22/18 05/23/18 05/24/18 23:59 23:59 23:59 23:59 Intake Total 600 1120 838 7 Output Total 900 1900 1250 300 Balance -300 -780 -412 -293 Weight 140 lb 9 oz 141 lb 140 lb 6.951 oz 135 lb 8 oz General NAD, bitemporal wasting, prominent cheekbones CV S1 S2 RRR Lungs crackles B/L bases no wheezing Abdomen soft NT/ND Extremities no pedal edema ASSESSMENT AND PLAN: 67 yo M with PMHx of CAD s/p CABG (2002), CHF (?systolic vs diastolic), active heavy smoker x35 years, COPD, HTN, HLD admitted with acute hypoxic respiratory failure. 1. Acute hypoxic respiratory failure likely from sepsis with Multifocal PNA/ Acute systolic HF exacerbation +/- COPD exacerbation- clinically improved. cont of treatment for PNA and volume overload. off steroids. saturating well on NC. cont with diuresis and PNA management. bipap HS. further titration of supplemental oxygen. critical care on board 2. Severe systolic dysfunction with very poor EF - 5 lb weight loss since yesterday. on dobutamine ggt. lasix ggt stopped yesterday due to OLIMPIA. will need to monitor volume status closely and restart as needed. awaiting to get recent workup done by PMD/cardio. will likely require cardiac cath when medically optimized. will likely need life vest on discharge. cont daily weights, strict I &O 3. Sepsis due to PNA- +legionella. on levaquin day 5 of total abx therapy. clinically improved. cont current management 4. Hyponatremia- hypervolumeic. now resolved 5. hypokalemia- Kcl po 6. Hypophosphatemia- resolved 7. OLIMPIA- due to sepsis. liekly now medication induced with over diuresis. slowly improving. avoid nephrotoxic agents. titrate as needed 8. Continuos nicotine dependence- nicotine patch. counselled on tobacco cessation. claims he is done with cigarettes. support 9. HTN- controlled 10. Multifocal Atrial tachycardia 11. Prolonged QT- daily EKG. yesterday QTc 519. awaiting todays 12. DVT ppx- Hep sq 13. OOB to chair. PT assessment. will likely require ALPHONSO on discharge
--- NOTE | 2018-05-24 12:40 | EKG ---
Test Reason : Blood Pressure : / mmHG Vent. Rate : 082 BPM Atrial Rate : 082 BPM P-R Int : 112 ms QRS Dur : 124 ms QT Int : 476 ms P-R-T Axes : 098 039 105 degrees QTc Int : 556 ms SINUS RHYTHM WITH FREQUENT and consecutive PREMATURE VENTRICULAR COMPLEXES NON-SPECIFIC INTRA-VENTRICULAR CONDUCTION DELAY ST ELEVATION, CONSIDER EARLY REPOLARIZATION, PERICARDITIS, OR INJURY T WAVE ABNORMALITY, CONSIDER LATERAL ISCHEMIA ABNORMAL ECG WHEN COMPARED WITH ECG OF 23-MAY-2018 08:55, NO SIGNIFICANT CHANGE WAS FOUND Confirmed by RASHAD EMERY MD ([id number]) on 05/24/2018 12:39:57 PM Referred By: Purnima HAY Confirmed By:RASHAD EMERY MD
--- NOTE | 2018-05-24 12:46 | PN ---
Progress Note (short form) - Note Progress Note: PULMONARY States breathing continues to improve. Saturating low 90s on 5L nasal cannula. Vital Signs Period Temp Pulse Resp BP Sys/Reyes Pulse Ox Last 24 Hr 97.6 F-98.6 F 76-92 20-29 98-129/70-81 92-97 Intake & Output 05/21/18 05/22/18 05/23/18 05/24/18 23:59 23:59 23:59 23:59 Intake Total 600 1120 838 7 Output Total 900 1900 1250 300 Balance -300 -780 -412 -293 Weight 63.758 kg 63.957 kg 63.7 kg 61.462 kg Gen: less tachypneic Heart: RRR Lung: bibasilar rales Abd: soft, nontender Ext: no edema CBC, BMP 05/24/18 05:30 05/24/18 05:30 Active Medications Albuterol Sulfate (Ventolin 0.083% Nebulizer Soln -) 1 amp NEB Q2H PRN PRN Reason: SHORT OF BREATH/WHEEZING Albuterol/Ipratropium (Duoneb -) 1 amp NEB Q4HWA [facility] Last Admin: 05/24/18 10:16 Dose: 1 amp Allopurinol (Zyloprim -) 300 mg PO DAILY [facility] Last Admin: 05/24/18 10:26 Dose: 300 mg Aspirin (Asa -) 81 mg PO DAILY [facility] Last Admin: 05/24/18 10:26 Dose: 81 mg Atorvastatin Calcium (Lipitor -) 10 mg PO HS [facility] Last Admin: 05/23/18 21:39 Dose: 10 mg Heparin Sodium (Porcine) (Heparin -) 5,000 unit SQ TID [facility] Last Admin: 05/24/18 05:47 Dose: 5,000 unit Dobutamine HCl/Dextrose (Dobutamine 250 Mg/D5w -) 250,000 mcg in 250 mls @ 0.956 mls/hr IV TITR [facility]; Protocol Last Admin: 05/23/18 19:35 Dose: 0.25 mcg/kg/min, 0.956 mls/hr Levofloxacin (Levaquin 500 Mg Premixed Ivpb -) 500 mg in 100 mls @ 100 mls/hr IVPB DAILY [facility]; Protocol Last Admin: 05/24/18 10:25 Dose: 100 mls/hr Melatonin (Melatonin) 1 mg PO HS PRN PRN Reason: INSOMNIA Metoprolol Tartrate (Lopressor Injection -) 5 mg IVPUSH Q4H PRN PRN Reason: HYPERTENSION Nicotine (Nicoderm Patch -) 21 mg TD DAILY [facility] Last Admin: 05/24/18 10:25 Dose: 21 mg Pantoprazole Sodium (Protonix -) 40 mg PO DAILY [facility] Last Admin: 05/24/18 10:25 Dose: 40 mg Potassium Chloride (Potassium Chloride Oral Liquid) 40 meq PO ONCE ONE Stop: 05/24/18 12:14 A/P Acute Hypoxic Respiratory Failure Pneumonia +Legionella Ag Acute Pulmonary Edema/LV Systolic Heart Failure Severe Mitral Regurgitation COPD CAD s/p CABG HTN Hyperipidemia - continue antibiotics, monitor QTc - hold lasix today, can resume in AM if creatinine improving - continue dobutamine gtt - monitor urine output, creatinine - inhaled bronchodilators - O2 to keep SpO2 >90% - BiPAP as needed to assist in work of breathing - replete lytes - DVT prophylaxis
[2018-05-24] MEDS: DOBUTAMINE 250 MG/D5W - 250,000 MCG/250 ML INFUS.BAG IV SCH (21:46)
[2018-05-24] MEDS: ATORVASTATIN CA 10 MG TABLET (FP) PO SCH (21:51)
[2018-05-25] MEDS: HEPARIN NA (PORCINE) 5,000 UNITS/ML 1ML VIAL SQ SCH ×3 (06:28→21:38)
[2018-05-25 06:33] LABS: BASO % 0.3 % (0-2.0); EOS % 0.1 % (0-4.5); HEMOGLOBIN 12.6 GM/dL (11.7-16.9); LYMPH % 4.8 % (8-40); MCHC 33.2 g/dl (32.0-35.9); MEAN CELL VOLUME 93.5 fl (80-96); MONO % 8.3 % (3.8-10.2); NEUT % 86.5 % (42.8-82.8); PLATELET COUNT 318 K/MM3 (134-434); RBC 4.06 M/mm3 (4.00-5.60); RDW 15.4 % (11.9-15.9); WHITE BLOOD COUNT 8.8 K/mm3 (4.0-10.0)
[2018-05-25] MEDS: ALBUTEROL SO4 2.5/IPRATROPIUM 0.5 INH SOL 3 ML VIAL.NEB. NEB SCH ×5 (06:35→22:18)
[2018-05-25 06:51] LABS: ANION GAP 12 MMOL/L (8-16); BLOOD UREA NITROGEN 37 mg/dL (7-18); CALCIUM 8.6 mg/dL (8.5-10.1); CHLORIDE 102 mmol/L (98-107); CO2 28 mmol/L (21-32); CREATININE 1.1 mg/dL (0.7-1.3); GLUCOSE,RANDOM 174 mg/dL (74-106); SODIUM 142 mmol/L (136-145)
[2018-05-25 06:55] LABS: POTASSIUM 4.5 mmol/L (3.5-5.1)
--- NOTE | 2018-05-25 09:00 | PN ---
Progress Note, Physician Chief Complaint: alert and orietned; does not eat solid foods lately (?except fish); denies dysphagia. History of Present Illness: Patient is a 67 black man with history of CAD s/p CABG (denies hx HI), etoh abuse (drinks 1/3 bottle of gin per day; last drink ?2 days ago), current tobacco abuse (and for many years at 1/2-1 ppd), HTN, HLD, here today complaining of shortness of breath for the past 4 days. Patient states that he has chest pain in both sides when he takes a deep breath. Patient states that he noticed his eyes were proptotic starting this morning. Denies history of thyroid problems. Last drink was yesterday. Daughter endorses tactile fever. Denies history of blood clots. Denies leg swelling. 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 - Current Medication List Current Medications: Active Medications Albuterol Sulfate (Ventolin 0.083% Nebulizer Soln -) 1 amp NEB Q2H PRN PRN Reason: SHORT OF BREATH/WHEEZING Albuterol/Ipratropium (Duoneb -) 1 amp NEB Q4HWA [facility] Last Admin: 05/25/18 06:35 Dose: 1 amp Allopurinol (Zyloprim -) 300 mg PO DAILY [facility] Last Admin: 05/24/18 10:26 Dose: 300 mg Aspirin (Asa -) 81 mg PO DAILY [facility] Last Admin: 05/24/18 10:26 Dose: 81 mg Atorvastatin Calcium (Lipitor -) 10 mg PO HS [facility] Last Admin: 05/24/18 21:51 Dose: 10 mg Heparin Sodium (Porcine) (Heparin -) 5,000 unit SQ TID [facility] Last Admin: 05/25/18 06:28 Dose: 5,000 unit Dobutamine HCl/Dextrose (Dobutamine 250 Mg/D5w -) 250,000 mcg in 250 mls @ 0.956 mls/hr IV TITR [facility]; Protocol Last Admin: 05/24/18 21:46 Dose: 0.25 mcg/kg/min, 0.956 mls/hr Melatonin (Melatonin) 1 mg PO HS PRN PRN Reason: INSOMNIA Metoprolol Tartrate (Lopressor Injection -) 5 mg IVPUSH Q4H PRN PRN Reason: HYPERTENSION Nicotine (Nicoderm Patch -) 21 mg TD DAILY [facility] Last Admin: 05/24/18 10:25 Dose: 21 mg Pantoprazole Sodium (Protonix -) 40 mg PO DAILY [facility] Last Admin: 05/24/18 10:25 Dose: 40 mg - Objective Vital Signs: Vital Signs Temperature 98.1 F 05/25/18 06:55 Pulse Rate 82 05/25/18 08:05 Respiratory Rate 35 H 05/25/18 06:55 Blood Pressure 129/78 05/25/18 06:55 O2 Sat by Pulse Oximetry (%) 95 05/25/18 08:05 Constitutional: Yes: Calm Eyes: Yes: WNL HENT: Yes: WNL Neck: Yes: WNL Cardiovascular: Yes: S1, S2, S4 Respiratory: Yes: Regular Gastrointestinal: Yes: Soft ...Rectal Exam: Yes: Deferred Genitourinary: No: Anuria Musculoskeletal: Yes: Muscle Weakness Extremities: Yes: Cool Edema: No Peripheral Pulses WNL: Yes Integumentary: Yes: WNL Neurological: Yes: Alert, Oriented, Weakness Psychiatric: Yes: Alert, Oriented Labs: CBC, BMP 05/25/18 05:30 05/25/18 05:30 INR, PTT INR 1.04 (0.83-1.09) 05/20/18 12:00 Abnormal Lab Results 05/26/18 08:20 BUN 31 H Random Glucose 180 H Magnesium 1.5 L D - ....Imaging EKG: Image Reviewed (NSR; later wall STT changes: consider ischemia) Problem List - Problems (1) HTN (hypertension) Assessment/Plan: on metoprolol. Code(s): I10 - ESSENTIAL (PRIMARY) HYPERTENSION (2) Hx of CABG Assessment/Plan: Pt says CABG was done in [place] in 2002. Code(s): Z95.1 - PRESENCE OF AORTOCORONARY BYPASS GRAFT (3) Hypoalbuminemia Code(s): E88.09 - OTH DISORDERS OF PLASMA-PROTEIN METABOLISM, NEC (4) [place] cardiac risk >20% in next 10 years Assessment/Plan: coronary artery evaluation (stress MIBI) when stable Code(s): Z91.89 - OTH PERSONAL RISK FACTORS, NOT ELSEWHERE CLASSIFIED (5) Nicotine addiction Assessment/Plan: pt agress to start nicotine patch. Code(s): F17.200 - NICOTINE DEPENDENCE, UNSPECIFIED, UNCOMPLICATED (6) Elevated LFTs Code(s): R94.5 - ABNORMAL RESULTS OF LIVER FUNCTION STUDIES (7) Acute respiratory distress Assessment/Plan: Pt with acute CHF, ?PNA On BIpap. Code(s): R06.03 - ACUTE RESPIRATORY DISTRESS (8) Acute on chronic systolic and diastolic heart failure, NYHA class 3 Assessment/Plan: Taper off dobutamine if BP remains WNL. F/u Is and Os, daily weight, electrolytes. BUN/Cr. On metoprolol IVP prn; start PO once dobutatmine is discontinued. Plan to gradually introduce ACEI or ARB and spironolactone. Stress MIBI (and, likely coronary angiogram) and evaluation for possible ICD once he is stable. Code(s): I50.43 - ACUTE ON CHRONIC COMBINED SYSTOLIC AND DIASTOLIC HRT FAIL (9) Sepsis Assessment/Plan: Pt needs antibiotics, but present classes may increased already prolonged QT. Agree with continuing Levoquin; daily monitoring of QT. F/u on telemetry for arrhythmias. Maintain electrolytes: K 4-4.5, Mg 2-2.4, PO4 2.5-4.9. QTC prolgonged , but not appreciably increased (504 msec today). Code(s): A41.9 - SEPSIS, UNSPECIFIED ORGANISM
[2018-05-25] MEDS: PANTOPRAZOLE 40 MG TABLET (FP) PO SCH (09:57)
[2018-05-25] MEDS: ASPIRIN 81 MG CHEWABLE TABLETS PO SCH (09:57)
[2018-05-25] MEDS: ALLOPURINOL 100 MG TABLET (FP) PO SCH (09:57)
[2018-05-25] MEDS: NICOTINE 21 MG/24 HOURS TOPICAL PATCH TD SCH (09:57)
[2018-05-25] MEDS: DOXYCYCLINE INJECTION 100 MG in DEXTROSE 5%-WATER - 100 ML IVPB SCH ×2 (11:29→21:38)
--- NOTE | 2018-05-25 12:14 | PN ---
Teaching Attending Note Name of Resident: Frantz Penny ATTENDING PHYSICIAN STATEMENT I saw and evaluated the patient. I reviewed the resident's note and discussed the case with the resident. I agree with the resident's findings and plan as documented. SUBJECTIVE:no complaints. denies Cp, SOB, fever, chills, cough, N/V/C/D OBJECTIVE: Last Vital Signs Temp Pulse Resp BP Pulse Ox 98.1 F 82 35 H 129/78 94 L 05/25/18 06:55 05/25/18 08:05 05/25/18 06:55 05/25/18 06:55 05/25/18 11:44 Intake & Output 05/22/18 05/23/18 05/24/18 05/25/18 23:59 23:59 23:59 23:59 Intake Total 1120 838 567 294 Output Total 1900 1250 1300 400 Balance -780 -412 -733 -106 Weight 141 lb 140 lb 6.951 oz 135 lb 8 oz 136 lb 8 oz General NAD, CV S1 S2 RRR Lungs crackles R base. no wheezing Extremities no pedal edema ASSESSMENT AND PLAN: 67 yo M with PMHx of CAD s/p CABG (2002), CHF (?systolic vs diastolic), active heavy smoker x35 years, COPD, HTN, HLD admitted with acute hypoxic respiratory failure. 1. Acute hypoxic respiratory failure likely from sepsis with Multifocal PNA/ Acute systolic HF exacerbation +/- COPD exacerbation- clinically improved. saturating 94% on facemask. cont of treatment for PNA and volume overload. off steroids. bipap HS. further titration of supplemental oxygen. critical care on board 2. Severe systolic dysfunction with very poor EF-clinically stable. will titrate off dobutamine ggt. re-start heart failure treatment to optimize. will need stress test when medically stable. will d/w cardio if able to do tuesday for ischemia eval. will likely need life vest prior to discharge. cardio on board. 3. Sepsis due to PNA- +legionella. levaquin placed on hold with worsening QTc yesterday. now that its improved. will d/w ID about abx duration and if we should substitute or if can consider completed treatment. 4. Hyponatremia- hypervolumeic. now resolved 5. hypokalemia-resolved 6. Hypophosphatemia- resolved 7. OLIMPIA- due to sepsis. liekly now medication induced with over diuresis. slowly improving. avoid nephrotoxic agents. titrate as needed 8. Continuos nicotine dependence- nicotine patch. counselled on tobacco cessation. claims he is done with cigarettes. support 9. HTN- controlled 10. Multifocal Atrial tachycardia 11. Prolonged QT- daily EKG.QTc 504. which improved from yesterday and did receive levaquin yesterday. 12. DVT ppx- Hep sq 13. ambulated 5 feet with PT yesterday. d/w pt about ALPHONSO on discharge. pt hesitant but will consider it and d/w family
--- NOTE | 2018-05-25 12:30 | PN ---
Progress Note (short form) - Note Progress Note: PULMONARY States breathing continues to improve. Renal function improving. Tachycardic this AM, remains on dobutamine gtt. Vital Signs Period Temp Pulse Resp BP Sys/Reyes Pulse Ox Last 24 Hr 97.7 F-98.2 F 79-104 25-37 101-136/68-89 92-95 Intake & Output 05/22/18 05/23/18 05/24/18 05/25/18 23:59 23:59 23:59 23:59 Intake Total 1120 838 567 294 Output Total 1900 1250 1300 400 Balance -780 -412 -733 -106 Weight 63.957 kg 63.7 kg 61.462 kg 61.915 kg Gen: less tachypneic Heart: RRR Lung: bibasilar rales Abd: soft, nontender Ext: no edema CBC, BMP 05/25/18 05:30 05/25/18 05:30 Active Medications Albuterol Sulfate (Ventolin 0.083% Nebulizer Soln -) 1 amp NEB Q2H PRN PRN Reason: SHORT OF BREATH/WHEEZING Albuterol/Ipratropium (Duoneb -) 1 amp NEB Q4HWA [facility] Last Admin: 05/25/18 10:17 Dose: 1 amp Allopurinol (Zyloprim -) 300 mg PO DAILY [facility] Last Admin: 05/25/18 09:57 Dose: 300 mg Aspirin (Asa -) 81 mg PO DAILY [facility] Last Admin: 05/25/18 09:57 Dose: 81 mg Atorvastatin Calcium (Lipitor -) 10 mg PO HS [facility] Last Admin: 05/24/18 21:51 Dose: 10 mg Heparin Sodium (Porcine) (Heparin -) 5,000 unit SQ TID [facility] Last Admin: 05/25/18 06:28 Dose: 5,000 unit Dobutamine HCl/Dextrose (Dobutamine 250 Mg/D5w -) 250,000 mcg in 250 mls @ 0.956 mls/hr IV TITR [facility]; Protocol Last Admin: 05/24/18 21:46 Dose: 0.25 mcg/kg/min, 0.956 mls/hr Doxycycline Hyclate 100 mg/ (Dextrose) 100 mls @ 100 mls/hr IVPB BID [facility] Last Admin: 05/25/18 11:29 Dose: 100 mls/hr Melatonin (Melatonin) 1 mg PO HS PRN PRN Reason: INSOMNIA Metoprolol Tartrate (Lopressor Injection -) 5 mg IVPUSH Q4H PRN PRN Reason: HYPERTENSION Nicotine (Nicoderm Patch -) 21 mg TD DAILY [facility] Last Admin: 05/25/18 09:57 Dose: 21 mg Pantoprazole Sodium (Protonix -) 40 mg PO DAILY [facility] Last Admin: 05/25/18 09:57 Dose: 40 mg A/P Acute Hypoxic Respiratory Failure Pneumonia +Legionella Ag Acute Pulmonary Edema/LV Systolic Heart Failure Severe Mitral Regurgitation COPD CAD s/p CABG HTN Hyperipidemia - continue antibiotics, monitor QTc - will resume lasix today - continue dobutamine gtt, but consider d/c if remains tachycardic - monitor urine output, creatinine - inhaled bronchodilators - O2 to keep SpO2 >90% - BiPAP as needed to assist in work of breathing - replete lytes - DVT prophylaxis
[2018-05-25] MEDS ORDERED: FUROSEMIDE 40 MG/4 ML INJECTABLE VIAL IVPUSH ONE (12:45)
--- NOTE | 2018-05-25 13:43 | EKG ---
Test Reason : Blood Pressure : / mmHG Vent. Rate : 090 BPM Atrial Rate : 090 BPM P-R Int : 116 ms QRS Dur : 108 ms QT Int : 412 ms P-R-T Axes : 078 036 100 degrees QTc Int : 504 ms SINUS RHYTHM WITH PREMATURE SUPRAVENTRICULAR COMPLEXES AND WITH OCCASIONAL PREMATURE VENTRICULAR COMPLEXES LOW VOLTAGE QRS PROLONGED QT ABNORMAL ECG WHEN COMPARED WITH ECG OF 24-MAY-2018 11:57, PREMATURE SUPRAVENTRICULAR COMPLEXES ARE NOW PRESENT ST NO LONGER ELEVATED IN ANTERIOR LEADS QT HAS SHORTENED Confirmed by ZOHAIB JIMENEZ MD ([id number]) on 05/25/2018 1:43:09 PM Referred By: BREANN ORO DR Confirmed By:ZOHAIB JIMENEZ MD
--- NOTE | 2018-05-25 14:11 | PN ---
Physical Exam: SUBJECTIVE: Patient seen and examined this AM. He says his breathing is improving every day. He was able to get out of bed and work with physical therapy yesterday with no complaints. OBJECTIVE: Vital Signs Period Temp Pulse Resp BP Sys/Reyes Pulse Ox Last 24 Hr 97.7 F-98.2 F 79-104 25-37 101-136/68-89 92-95 GENERAL: A&O, no acute distress HEAD: Normocephalic, atraumatic. EYES: PERRL, discoloration of sclera (beige colored), proptosis noted EARS, NOSE, THROAT: oropharynx clear without exudates. Moist mucous membranes. NECK: supple without lymphadenopathy LUNGS: Mild diffuse crackles, improved today compared with yesterday HEART: Regular rate and rhythm, normal S1 and S2 without murmur ABDOMEN: Soft, nontender to palpation, normoactive bowel sounds MUSCULOSKELETAL: No bony deformities or tenderness. EXTREMITIES: 2+ pulses, warm, well-perfused. No peripheral edema. NEUROLOGICAL: Cranial nerves II-XII grossly intact. Normal speech. 5/5 strength in all extremities. PSYCHIATRIC: Cooperative. Good eye contact. Appropriate mood and affect. SKIN: Warm, dry, no rashes or lesions noted Laboratory Results - last 24 hr 05/25/18 05/25/18 05:30 05:30 WBC 8.8 RBC 4.06 Hgb 12.6 Hct 38.0 MCV 93.5 MCH 31.0 MCHC 33.2 RDW 15.4 Plt Count 318 MPV 10.0 Absolute Neuts (auto) 7.6 Neutrophils % 86.5 H D Lymphocytes % 4.8 L D Monocytes % 8.3 D Eosinophils % 0.1 D Basophils % 0.3 Nucleated RBC % 0 Sodium 142 Potassium 4.5 D Chloride 102 Carbon Dioxide 28 Anion Gap 12 BUN 37 H Creatinine 1.1 Creat Clearance w eGFR > 60 Random Glucose 174 H D Calcium 8.6 Active Medications Generic Name Dose Route Start Last Admin Trade Name Freq PRN Reason Stop Dose Admin Albuterol Sulfate 1 amp 05/23/18 18:03 Ventolin 0.083% Nebulizer Soln - NEB Q2H PRN SHORT OF BREATH/WHEEZING Albuterol/Ipratropium 1 amp 05/23/18 22:00 05/25/18 10:17 Duoneb - NEB 1 amp Q4HWA ELLIE Administration Allopurinol 300 mg 05/23/18 16:00 05/25/18 09:57 Zyloprim - PO 300 mg DAILY ELLIE Administration Aspirin 81 mg 05/24/18 10:00 05/25/18 09:57 Asa - PO 81 mg DAILY ELLIE Administration Atorvastatin Calcium 10 mg 05/23/18 22:00 05/24/18 21:51 Lipitor - PO 10 mg HS ELLIE Administration Heparin Sodium (Porcine) 5,000 unit 05/23/18 22:00 05/25/18 06:28 Heparin - SQ 5,000 unit TID ELLIE Administration Dobutamine HCl/Dextrose 250,000 mcg in 250 mls @ 0.956 mls/hr 05/23/18 18:03 05/24/18 21:46 Dobutamine 250 Mg/D5w - IV 0.25 mcg/kg/min TITR ELLIE 0.956 mls/hr Administration Protocol 0.25 MCG/KG/MIN Doxycycline Hyclate 100 mg/ 100 mls @ 100 mls/hr 05/25/18 10:00 05/25/18 11: 29 Dextrose IVPB 100 mls/hr BID ELLIE Administration Melatonin 1 mg 05/23/18 18:03 Melatonin PO HS PRN INSOMNIA Metoprolol Tartrate 5 mg 05/23/18 18:03 Lopressor Injection - IVPUSH Q4H PRN HYPERTENSION Nicotine 21 mg 05/24/18 10:00 05/25/18 09:57 Nicoderm Patch - TD 21 mg DAILY ELLIE Administration Pantoprazole Sodium 40 mg 05/24/18 10:00 05/25/18 09:57 Protonix - PO 40 mg DAILY ELLIE Administration ASSESSMENT/PLAN: 67 yo male with PMH CAD (s/p CABG), CHF, COPD, HTN, HLD, EtOH abuse admitted with SOB and weakness Acute Hypoxic Respiratory Failure with COPD history -Respiratory status improving, no longer requiring bilevel ventilation during the day -Pt is saturating well on 5L NC -Duonebs Q4 ELLIE -Albuterol Neb Q2 PRN Systolic Heart Failure -Echo noted: Severe LV systolic dysfunction, EF 15-20% -Cardiology Consult Appreciated Restudy coronaries and ICD eval when stable -Dobutamine drip being tapered as per cardiology management -Held Lasix drip earlier in the week due to OLIMPIA, will reevaluate to start IV or PO if pressure stable in AM Pneumonia -CXR, congestive changes improving, can repeat CXR in AM to check for resolution -Urine legionella presumed positive, awaiting final tracheal antigen result -Pt is afebrile, WBC 8.8 today, trending down -Pt with prolonged QTc on ECG -Being given Levaquin 500 mg IV Daily 5 days, held this AM due to QT prolongation yesterday -Pt placed on Doxycycline 100 mg IV BID as per ID CAD -With no acute signs of ischemia -ASA HTN -Hold bp meds due to Hypotension, -Lopressor 5mg Q4 PRN HTN if HR >110, Pt has not required HLD -Lipitor 10 mg PO HS Prolonged QTc -Pt on QT prolonging agents, Levaquin and Macrolides both cause QTc prolongation -Pt requires Abx for atypical pneumonia likely Legionella -Pt monitored on telemetry bed with no overnight events noted -Daily ECGs, 556 yesterday, Levaquin held this AM, -QTc is 504 this morning, will await ID recommendation for further need of levaquin Tobacco use -Nicoderm patch daily DVT Prophylaxis -Heparin 5000 units SQ TID -Early ambulation, OOB to chair, PT eval FEN -Fluids: none -Electrolytes: Mg 2.0, trending down, BMP in AM -Nutrition: Chol/Fat/Sodium Restricted diet Disposition Continue to monitor on Telemetry Visit type - Emergency Visit Emergency Visit: Yes ED Registration Date: 05/20/18 Care time: The patient presented to the Emergency Department on the above date and was hospitalized for further evaluation of their emergent condition. - New Patient This patient is new to me today: No - Critical Care Critical Care patient: No
--- NOTE | 2018-05-25 15:49 | PN ---
Progress Note, Physician History of Present Illness: Awake, alert Slightly tachypneic at rest on VM C/O dry cough Afebrile WBC improved WNL - Current Medication List Current Medications: Active Medications Albuterol Sulfate (Ventolin 0.083% Nebulizer Soln -) 1 amp NEB Q2H PRN PRN Reason: SHORT OF BREATH/WHEEZING Albuterol/Ipratropium (Duoneb -) 1 amp NEB Q4HWA [facility] Last Admin: 05/25/18 14:27 Dose: 1 amp Allopurinol (Zyloprim -) 300 mg PO DAILY [facility] Last Admin: 05/25/18 09:57 Dose: 300 mg Aspirin (Asa -) 81 mg PO DAILY [facility] Last Admin: 05/25/18 09:57 Dose: 81 mg Atorvastatin Calcium (Lipitor -) 10 mg PO HS [facility] Last Admin: 05/24/18 21:51 Dose: 10 mg Heparin Sodium (Porcine) (Heparin -) 5,000 unit SQ TID [facility] Last Admin: 05/25/18 14:42 Dose: 5,000 unit Dobutamine HCl/Dextrose (Dobutamine 250 Mg/D5w -) 250,000 mcg in 250 mls @ 0.956 mls/hr IV TITR ELLIE; Protocol Last Admin: 05/24/18 21:46 Dose: 0.25 mcg/kg/min, 0.956 mls/hr Doxycycline Hyclate 100 mg/ (Dextrose) 100 mls @ 100 mls/hr IVPB BID [facility] Last Admin: 05/25/18 11:29 Dose: 100 mls/hr Melatonin (Melatonin) 1 mg PO HS PRN PRN Reason: INSOMNIA Metoprolol Tartrate (Lopressor Injection -) 5 mg IVPUSH Q4H PRN PRN Reason: HYPERTENSION Nicotine (Nicoderm Patch -) 21 mg TD DAILY [facility] Last Admin: 05/25/18 09:57 Dose: 21 mg Pantoprazole Sodium (Protonix -) 40 mg PO DAILY [facility] Last Admin: 05/25/18 09:57 Dose: 40 mg - Objective Vital Signs: Vital Signs Temperature 98.1 F 05/25/18 06:55 Pulse Rate 108 H 05/25/18 14:49 Respiratory Rate 18 05/25/18 14:49 Blood Pressure 122/89 05/25/18 14:49 O2 Sat by Pulse Oximetry (%) 96 05/25/18 14:26 Constitutional: Yes: No Distress, Thin Cardiovascular: Yes: Regular Rate and Rhythm, S1, S2 Respiratory: Yes: Rhonchi Gastrointestinal: Yes: Normal Bowel Sounds, Soft. No: Tenderness Edema: No Labs: CBC, BMP 05/25/18 05:30 05/25/18 05:30 INR, PTT INR 1.04 (0.83-1.09) 05/20/18 12:00 Assessment/Plan Pneumonia Legionella sepsis secondary to pneumonia COPD Prolonged QT Continue doxycycline
[2018-05-25] MEDS ORDERED: PT OWN MED DRAWER 7, Y5N ONE (20:39)
[2018-05-25] MEDS: ATORVASTATIN CA 10 MG TABLET (FP) PO SCH (21:38)
[2018-05-26] MEDS: ALBUTEROL SO4 2.5/IPRATROPIUM 0.5 INH SOL 3 ML VIAL.NEB. NEB SCH ×3 (05:19→20:44)
[2018-05-26] MEDS: HEPARIN NA (PORCINE) 5,000 UNITS/ML 1ML VIAL SQ SCH ×3 (06:16→22:19)
[2018-05-26 08:58] LABS: ANION GAP 9 MMOL/L (8-16); BLOOD UREA NITROGEN 31 mg/dL (7-18); CALCIUM 8.9 mg/dL (8.5-10.1); CHLORIDE 100 mmol/L (98-107); CO2 31 mmol/L (21-32); GLUCOSE,RANDOM 180 mg/dL (74-106); MAGNESIUM 1.5 mg/dL (1.8-2.4); POTASSIUM 3.9 mmol/L (3.5-5.1); SODIUM 140 mmol/L (136-145)
[2018-05-26] MEDS ORDERED: PT OWN MED DRAWER 7, Y5N ONE ×2 (09:25→22:17)
[2018-05-26] MEDS: METOPROLOL TARTRATE 25 MG TABLET (FP) PO SCH ×2 (09:29→22:19)
[2018-05-26] MEDS: ALLOPURINOL 100 MG TABLET (FP) PO SCH (09:29)
[2018-05-26] MEDS: MULTIVITAMINS (DAILY MVI) TABLET (FP) PO SCH (09:31)
[2018-05-26] MEDS: ASPIRIN 81 MG CHEWABLE TABLETS PO SCH (09:31)
[2018-05-26] MEDS: PANTOPRAZOLE 40 MG TABLET (FP) PO SCH (09:31)
[2018-05-26] MEDS: NICOTINE 21 MG/24 HOURS TOPICAL PATCH TD SCH (09:32)
[2018-05-26] MEDS: DOXYCYCLINE INJECTION 100 MG in DEXTROSE 5%-WATER - 100 ML IVPB SCH ×2 (09:32→22:19)
--- NOTE | 2018-05-26 09:52 | PN ---
Progress Note (short form) - Note Progress Note: PULMONARY States breathing continues to improve. Diuresed well with lasix yesterday. Remains tachycardic. Vital Signs Period Temp Pulse Resp BP Sys/Reyes Pulse Ox Last 24 Hr 97.6 F-98.5 F 87-116 18-31 115-125/76-96 91-96 Intake & Output 05/23/18 05/24/18 05/25/18 05/26/18 23:59 23:59 23:59 23:59 Intake Total 838 567 994 Output Total 1250 1300 2550 300 Balance -412 -733 -1556 -300 Weight 63.7 kg 61.462 kg 61.915 kg 58.315 kg Gen: less tachypneic Heart: RRR Lung: bibasilar rales Abd: soft, nontender Ext: no edema CBC, BMP 05/25/18 05:30 05/26/18 08:20 Active Medications Albuterol Sulfate (Ventolin 0.083% Nebulizer Soln -) 1 amp NEB Q2H PRN PRN Reason: SHORT OF BREATH/WHEEZING Albuterol/Ipratropium (Duoneb -) 1 amp NEB Q4HWA [facility] Last Admin: 05/26/18 05:19 Dose: 1 amp Allopurinol (Zyloprim -) 300 mg PO DAILY [facility] Last Admin: 05/26/18 09:29 Dose: 300 mg Aspirin (Asa -) 81 mg PO DAILY [facility] Last Admin: 05/26/18 09:31 Dose: 81 mg Atorvastatin Calcium (Lipitor -) 10 mg PO HS [facility] Last Admin: 05/25/18 21:38 Dose: 10 mg Heparin Sodium (Porcine) (Heparin -) 5,000 unit SQ TID [facility] Last Admin: 05/26/18 06:16 Dose: 5,000 unit Doxycycline Hyclate 100 mg/ (Dextrose) 100 mls @ 100 mls/hr IVPB BID [facility] Last Admin: 05/26/18 09:32 Dose: 100 mls/hr Melatonin (Melatonin) 1 mg PO HS PRN PRN Reason: INSOMNIA Metoprolol Tartrate (Lopressor -) 12.5 mg PO BID [facility] Last Admin: 05/26/18 09:29 Dose: 12.5 mg Metoprolol Tartrate (Lopressor Injection -) 5 mg IVPUSH Q4H PRN PRN Reason: TACHYCARDIA > 110 Multivitamins/Minerals/Vitamin C (Tab-A-Vit -) 1 tab PO DAILY [facility] Last Admin: 05/26/18 09:31 Dose: 1 tab Nicotine (Nicoderm Patch -) 21 mg TD DAILY [facility] Last Admin: 05/26/18 09:32 Dose: 21 mg Pantoprazole Sodium (Protonix -) 40 mg PO DAILY [facility] Last Admin: 05/26/18 09:31 Dose: 40 mg A/P Acute Hypoxic Respiratory Failure Pneumonia +Legionella Ag Acute Pulmonary Edema/LV Systolic Heart Failure Severe Mitral Regurgitation COPD CAD s/p CABG HTN Hyperipidemia - continue antibiotics, monitor QTc - will continue lasix - monitor urine output, creatinine - inhaled bronchodilators - O2 to keep SpO2 >90% - BiPAP as needed to assist in work of breathing - replete lytes - DVT prophylaxis
[2018-05-26] MEDS: FUROSEMIDE 40 MG/4 ML INJECTABLE VIAL IVPUSH SCH (10:33)
[2018-05-26] MEDS: LOSARTAN POTASSIUM 25 MG TABLET PO SCH (10:34)
--- NOTE | 2018-05-26 10:48 | PN ---
Physical Exam: SUBJECTIVE: Patient seen and examined this AM. Says his breathing is better and that he is enjoying his breakfast. He currently has no complaints as of this morning though he is still requiring occasional venti mask. OBJECTIVE: Vital Signs Period Temp Pulse Resp BP Sys/Reyes Pulse Ox Last 24 Hr 97.6 F-98.5 F 87-116 18-28 115-125/76-96 91-96 GENERAL: A&O, no acute distress HEAD: Normocephalic, atraumatic. EYES: PERRL, discoloration of sclera (beige colored), proptosis noted EARS, NOSE, THROAT: oropharynx clear without exudates. Moist mucous membranes. NECK: supple without lymphadenopathy LUNGS: Lungs mostly clear with basilar crackles HEART: Tachycardic, regular rythm, normal S1 and S2 without murmur ABDOMEN: Soft, nontender to palpation, normoactive bowel sounds MUSCULOSKELETAL: No bony deformities or tenderness. EXTREMITIES: 2+ pulses, warm, well-perfused. No peripheral edema. NEUROLOGICAL: Cranial nerves II-XII grossly intact. Normal speech. 5/5 strength in all extremities. PSYCHIATRIC: Cooperative. Good eye contact. Appropriate mood and affect. SKIN: Warm, dry, no rashes or lesions noted Laboratory Results - last 24 hr 05/26/18 08:20 Sodium 140 Potassium 3.9 Chloride 100 Carbon Dioxide 31 Anion Gap 9 BUN 31 H Creatinine 1.0 Creat Clearance w eGFR > 60 Random Glucose 180 H Calcium 8.9 Magnesium 1.5 L D Active Medications Generic Name Dose Route Start Last Admin Trade Name Freq PRN Reason Stop Dose Admin Albuterol Sulfate 1 amp 05/23/18 18:03 Ventolin 0.083% Nebulizer Soln - NEB Q2H PRN SHORT OF BREATH/WHEEZING Albuterol/Ipratropium 1 amp 05/26/18 14:00 Duoneb - NEB RTID ELLIE Allopurinol 300 mg 05/23/18 16:00 05/26/18 09:29 Zyloprim - PO 300 mg DAILY ELLIE Administration Aspirin 81 mg 05/24/18 10:00 05/26/18 09:31 Asa - PO 81 mg DAILY ELLIE Administration Atorvastatin Calcium 10 mg 05/23/18 22:00 05/25/18 21:38 Lipitor - PO 10 mg HS ELLIE Administration Furosemide 40 mg 09/07/18 10:00 Lasix Injection - IVPUSH DAILY ELLIE Heparin Sodium (Porcine) 5,000 unit 05/23/18 22:00 05/26/18 06:16 Heparin - SQ 5,000 unit TID ELLIE Administration Doxycycline Hyclate 100 mg/ 100 mls @ 100 mls/hr 05/25/18 10:00 05/26/18 09: 32 Dextrose IVPB 100 mls/hr BID ELLIE Administration Losartan Potassium 25 mg 05/26/18 10:00 Cozaar - PO DAILY ELLIE Melatonin 1 mg 05/23/18 18:03 Melatonin PO HS PRN INSOMNIA Metoprolol Tartrate 12.5 mg 05/26/18 10:00 05/26/18 09:29 Lopressor - PO 12.5 mg BID ELLIE Administration Metoprolol Tartrate 5 mg 05/26/18 09:17 Lopressor Injection - IVPUSH Q4H PRN TACHYCARDIA > 110 Multivitamins/Minerals/Vitamin C 1 tab 05/26/18 10:00 05/26/18 09:31 Tab-A-Vit - PO 1 tab DAILY ELLIE Administration Nicotine 21 mg 05/24/18 10:00 05/26/18 09:32 Nicoderm Patch - TD 21 mg DAILY ELLIE Administration Pantoprazole Sodium 40 mg 05/24/18 10:00 05/26/18 09:31 Protonix - PO 40 mg DAILY ELLIE Administration ASSESSMENT/PLAN: 67 yo male with PMH CAD (s/p CABG), CHF, COPD, HTN, HLD, EtOH abuse admitted with SOB and weakness Acute Hypoxic Respiratory Failure with COPD history -Respiratory status improving, no longer requiring bilevel ventilation during the day -Pt is saturating well on 5L NC -Duonebs Q4 ELLIE -Albuterol Neb Q2 PRN Systolic Heart Failure -Echo noted: Severe LV systolic dysfunction, EF 15-20% -Cardiology Consult Appreciated Restudy coronaries and ICD eval, pt is medically stable for eval -Dobutamine drip d/c yesterday PM -Pt diuresed with Lasix 40 mg IV yesterday and today -Pt medically safe for Stress test likely on Tuesday, Pt should be fitted for a LifeVest Defibrillator prior to discharge Pneumonia -CXR, congestive changes improving, can repeat CXR in AM to check for resolution -Urine legionella presumed positive, awaiting final tracheal antigen result -Pt is afebrile, WBC 8.8 today, trending down -Pt with prolonged QTc on ECG -Being given Levaquin 500 mg IV Daily 5 days, held this AM due to QT prolongation yesterday -Pt placed on Doxycycline 100 mg IV BID as per ID CAD -With no acute signs of ischemia -ASA HTN -Restarted Lopressor 12.5 mg PO BID -Restarted Losartan 25 mg PO Daily -Lopressor 5mg Q4 PRN HTN if HR >110, Pt received once this morning HLD -Lipitor 10 mg PO HS Prolonged QTc -Levaquin and Macrolides both cause QTc prolongation, pt no longer receiving -Pt requires Abx for atypical pneumonia likely Legionella, on Doxy as above -Pt monitored on telemetry bed with no overnight events noted Tobacco use -Nicoderm patch daily DVT Prophylaxis -Heparin 5000 units SQ TID -Early ambulation, OOB to chair, PT eval FEN -Fluids: none -Electrolytes: Mg 1.5, repleting, BMP in AM -Nutrition: Chol/Fat/Sodium Restricted diet Disposition Continue to monitor on Telemetry Visit type - Emergency Visit Emergency Visit: Yes ED Registration Date: 05/20/18 Care time: The patient presented to the Emergency Department on the above date and was hospitalized for further evaluation of their emergent condition. - New Patient This patient is new to me today: No - Critical Care Critical Care patient: No
--- NOTE | 2018-05-26 10:52 | PN ---
Teaching Attending Note Name of Resident: Frantz Penny ATTENDING PHYSICIAN STATEMENT I saw and evaluated the patient. I reviewed the resident's note and discussed the case with the resident. I agree with the resident's findings and plan as documented. SUBJECTIVE:asymptomatic. denies Cp, SOB, fever, chills, N/V/C/D OBJECTIVE: Last Vital Signs Temp Pulse Resp BP Pulse Ox 97.6 F 90 23 118/81 96 05/26/18 08:00 05/26/18 08:06 05/26/18 08:00 05/26/18 08:00 05/26/18 08:06 Intake & Output 05/23/18 05/24/18 05/25/18 05/26/18 23:59 23:59 23:59 23:59 Intake Total 838 567 994 Output Total 1250 1300 2550 300 Balance -412 -733 -1556 -300 Weight 140 lb 6.951 oz 135 lb 8 oz 136 lb 8 oz 128 lb 9 oz General NAD, CV S1 S2 tachy Lungs CTA B/L. no wheezing/rales/rhonchi Extremities no pedal edema ASSESSMENT AND PLAN: 67 yo M with PMHx of CAD s/p CABG (2002), CHF (?systolic vs diastolic), active heavy smoker x35 years, COPD, HTN, HLD admitted with acute hypoxic respiratory failure. 1. Acute hypoxic respiratory failure likely from sepsis with Multifocal PNA/ Acute systolic HF exacerbation +/- COPD exacerbation- clinically improved. saturating 100% on 50% facemask. cont of treatment for PNA and volume overload. off steroids. bipap HS. further titration of supplemental oxygen. critical care on board 2. Severe systolic dysfunction with very poor EF-clinically stable. off dobutamine ggt. received lasix 40mg IV x1 yesterday. do not believe weights are accurate. curently in sinus tachycardia. will give low dose metoprolol and titrte up as tolerated. will start spirolactone later pending on BP. plan for NMST on tuesday. will likely need life vest prior to discharge. cardio on board. 3. Sepsis due to PNA- +legionella.switched to doxy due to prolonged QTc. should complete 7-14day course. ID on board 4. Hyponatremia- hypervolumeic. now resolved 5. hypokalemia-resolved 6. Hypophosphatemia- resolved 7. Severe malnutrition- evident by body habitus and low BMI. encourage ensure and dietary supplements 8. OLIMPIA- due to sepsis. liekly now medication induced with over diuresis. slowly improving. avoid nephrotoxic agents. titrate as needed 9. Continuos nicotine dependence- nicotine patch. counselled on tobacco cessation. claims he is done with cigarettes. support 10. HTN- controlled 11. Multifocal Atrial tachycardia 12. Prolonged QT- daily EKG. 13. DVT ppx- Hep sq 14. ambulated 5 feet with PT yesterday. would benefit from ALPHONSO on discharge
[2018-05-26] MEDS ORDERED: MAGNESIUM OXIDE 400 MG TABLET (FP) PO ONE (11:15)
[2018-05-26] MEDS: METOPROLOL TARTRATE 5 MG/5 ML VIAL IVPUSH PRN (12:41)
--- NOTE | 2018-05-26 13:57 | PN ---
Progress Note, Physician History of Present Illness: Patient is a 67 black man with history of CAD s/p CABG (denies hx AR), etoh abuse (drinks 1/3 bottle of gin per day; last drink ?2 days ago), current tobacco abuse (and for many years at 1/2-1 ppd), HTN, HLD, here today complaining of shortness of breath for the past 4 days. Patient states that he has chest pain in both sides when he takes a deep breath. Patient states that he noticed his eyes were proptotic starting this morning. Denies history of thyroid problems. Last drink was yesterday. Daughter endorses tactile fever. Denies history of blood clots. Denies leg swelling. - Current Medication List Current Medications: Active Medications Albuterol Sulfate (Ventolin 0.083% Nebulizer Soln -) 1 amp NEB Q2H PRN PRN Reason: SHORT OF BREATH/WHEEZING Albuterol/Ipratropium (Duoneb -) 1 amp NEB RTID [facility] Allopurinol (Zyloprim -) 300 mg PO DAILY [facility] Last Admin: 05/26/18 09:29 Dose: 300 mg Aspirin (Asa -) 81 mg PO DAILY [facility] Last Admin: 05/26/18 09:31 Dose: 81 mg Atorvastatin Calcium (Lipitor -) 10 mg PO HS [facility] Last Admin: 05/25/18 21:38 Dose: 10 mg Furosemide (Lasix Injection -) 40 mg IVPUSH DAILY [facility] Last Admin: 05/26/18 10:33 Dose: 40 mg Heparin Sodium (Porcine) (Heparin -) 5,000 unit SQ TID [facility] Last Admin: 05/26/18 13:47 Dose: 5,000 unit Doxycycline Hyclate 100 mg/ (Dextrose) 100 mls @ 100 mls/hr IVPB BID [facility] Last Admin: 05/26/18 09:32 Dose: 100 mls/hr Losartan Potassium (Cozaar -) 25 mg PO DAILY [facility] Last Admin: 05/26/18 10:34 Dose: 25 mg Melatonin (Melatonin) 1 mg PO HS PRN PRN Reason: INSOMNIA Metoprolol Tartrate (Lopressor -) 12.5 mg PO BID [facility] Last Admin: 05/26/18 09:29 Dose: 12.5 mg Metoprolol Tartrate (Lopressor Injection -) 5 mg IVPUSH Q4H PRN PRN Reason: TACHYCARDIA > 110 Last Admin: 05/26/18 12:41 Dose: 5 mg Multivitamins/Minerals/Vitamin C (Tab-A-Vit -) 1 tab PO DAILY [facility] Last Admin: 05/26/18 09:31 Dose: 1 tab Nicotine (Nicoderm Patch -) 21 mg TD DAILY [facility] Last Admin: 05/26/18 09:32 Dose: 21 mg Pantoprazole Sodium (Protonix -) 40 mg PO DAILY [facility] Last Admin: 05/26/18 09:31 Dose: 40 mg - Objective Vital Signs: Vital Signs Temperature 97.6 F 05/26/18 08:00 Pulse Rate 120 H 05/26/18 12:41 Respiratory Rate 23 05/26/18 08:00 Blood Pressure 102/67 05/26/18 12:41 O2 Sat by Pulse Oximetry (%) 94 L 05/26/18 09:00 Eyes: Yes: WNL, Conjunctiva Clear, EOM Intact HENT: Yes: WNL, Atraumatic, Normocephalic Neck: Yes: WNL, Supple, Trachea Midline Cardiovascular: Yes: WNL, Regular Rate and Rhythm Respiratory: Yes: WNL, Regular, CTA Bilaterally Gastrointestinal: Yes: WNL, Normal Bowel Sounds Genitourinary: Yes: WNL Musculoskeletal: Yes: WNL Extremities: Yes: WNL Edema: No Integumentary: Yes: WNL Neurological: Yes: WNL, Alert, Oriented ...Motor Strength: WNL Psychiatric: Yes: WNL Labs: CBC, BMP 05/25/18 05:30 05/26/18 08:20 INR, PTT INR 1.04 (0.83-1.09) 05/20/18 12:00 Assessment/Plan - Problems (1) HTN (hypertension) Assessment/Plan: on metoprolol. Code(s): I10 - ESSENTIAL (PRIMARY) HYPERTENSION (2) Hx of CABG Assessment/Plan: Pt says CABG was done in [place] in 2002. Code(s): Z95.1 - PRESENCE OF AORTOCORONARY BYPASS GRAFT (3) Hypoalbuminemia Code(s): E88.09 - OTH DISORDERS OF PLASMA-PROTEIN METABOLISM, NEC (4) [place] cardiac risk >20% in next 10 years Assessment/Plan: coronary artery evaluation (stress MIBI) when stable Code(s): Z91.89 - OTH PERSONAL RISK FACTORS, NOT ELSEWHERE CLASSIFIED (5) Nicotine addiction Assessment/Plan: pt agress to start nicotine patch. Code(s): F17.200 - NICOTINE DEPENDENCE, UNSPECIFIED, UNCOMPLICATED (6) Elevated LFTs Code(s): R94.5 - ABNORMAL RESULTS OF LIVER FUNCTION STUDIES (7) Acute respiratory distress Assessment/Plan: Pt with acute CHF, ?PNA On BIpap. Code(s): R06.03 - ACUTE RESPIRATORY DISTRESS (8) Acute on chronic systolic and diastolic heart failure, NYHA class 3 Assessment/Plan: Taper off dobutamine if BP remains WNL. F/u Is and Os, daily weight, electrolytes. BUN/Cr. On metoprolol IVP prn; start PO once dobutatmine is discontinued. Plan to gradually introduce ACEI or ARB and spironolactone. Stress MIBI (and, likely coronary angiogram) and evaluation for possible ICD once he is stable. Code(s): I50.43 - ACUTE ON CHRONIC COMBINED SYSTOLIC AND DIASTOLIC HRT FAIL (9) Sepsis Assessment/Plan: Pt needs antibiotics, but present classes may increased already prolonged QT. Agree with continuing Levoquin; daily monitoring of QT. F/u on telemetry for arrhythmias. Maintain electrolytes: K 4-4.5, Mg 2-2.4, PO4 2.5-4.9. QTC prolgonged , but not appreciably increased (504 msec today). Code(s): A41.9 - SEPSIS, UNSPECIFIED ORGANISM cc time 37 min
--- NOTE | 2018-05-26 16:03 | PN ---
Progress Note, Physician History of Present Illness: Awake, alert Slightly tachypneic at rest on VM Denies chest pain occasional dry cough Afebrile WBC improved WNL - Current Medication List Current Medications: Active Medications Albuterol Sulfate (Ventolin 0.083% Nebulizer Soln -) 1 amp NEB Q2H PRN PRN Reason: SHORT OF BREATH/WHEEZING Albuterol/Ipratropium (Duoneb -) 1 amp NEB RTID [facility] Last Admin: 05/26/18 14:20 Dose: 1 amp Allopurinol (Zyloprim -) 300 mg PO DAILY [facility] Last Admin: 05/26/18 09:29 Dose: 300 mg Aspirin (Asa -) 81 mg PO DAILY [facility] Last Admin: 05/26/18 09:31 Dose: 81 mg Atorvastatin Calcium (Lipitor -) 10 mg PO HS [facility] Last Admin: 05/25/18 21:38 Dose: 10 mg Furosemide (Lasix Injection -) 40 mg IVPUSH DAILY [facility] Last Admin: 05/26/18 10:33 Dose: 40 mg Heparin Sodium (Porcine) (Heparin -) 5,000 unit SQ TID [facility] Last Admin: 05/26/18 13:47 Dose: 5,000 unit Doxycycline Hyclate 100 mg/ (Dextrose) 100 mls @ 100 mls/hr IVPB BID [facility] Last Admin: 05/26/18 09:32 Dose: 100 mls/hr Losartan Potassium (Cozaar -) 25 mg PO DAILY [facility] Last Admin: 05/26/18 10:34 Dose: 25 mg Melatonin (Melatonin) 1 mg PO HS PRN PRN Reason: INSOMNIA Metoprolol Tartrate (Lopressor -) 12.5 mg PO BID [facility] Last Admin: 05/26/18 09:29 Dose: 12.5 mg Metoprolol Tartrate (Lopressor Injection -) 5 mg IVPUSH Q4H PRN PRN Reason: TACHYCARDIA > 110 Last Admin: 05/26/18 12:41 Dose: 5 mg Multivitamins/Minerals/Vitamin C (Tab-A-Vit -) 1 tab PO DAILY [facility] Last Admin: 05/26/18 09:31 Dose: 1 tab Nicotine (Nicoderm Patch -) 21 mg TD DAILY [facility] Last Admin: 05/26/18 09:32 Dose: 21 mg Pantoprazole Sodium (Protonix -) 40 mg PO DAILY [facility] Last Admin: 05/26/18 09:31 Dose: 40 mg - Objective Vital Signs: Vital Signs Temperature 97.5 F L 05/26/18 14:20 Pulse Rate 88 05/26/18 14:20 Respiratory Rate 24 05/26/18 14:20 Blood Pressure 101/67 05/26/18 14:20 O2 Sat by Pulse Oximetry (%) 94 L 05/26/18 09:00 Constitutional: Yes: No Distress Eyes: Yes: Conjunctiva Clear Cardiovascular: Yes: Regular Rate and Rhythm, S1, S2 Respiratory: Yes: Diminished Gastrointestinal: Yes: Normal Bowel Sounds, Soft. No: Tenderness Edema: No Labs: CBC, BMP 05/25/18 05:30 05/26/18 08:20 INR, PTT INR 1.04 (0.83-1.09) 05/20/18 12:00 Assessment/Plan Legionella pneumonia sepsis secondary to pneumonia COPD Prolonged QT Continue doxycycline
[2018-05-26] MEDS: ATORVASTATIN CA 10 MG TABLET (FP) PO SCH (22:19)
[2018-05-27] MEDS: HEPARIN NA (PORCINE) 5,000 UNITS/ML 1ML VIAL SQ SCH ×3 (05:54→21:23)
--- NOTE | 2018-05-27 07:30 | PN ---
Progress Note (short form) - Note Progress Note: alert NAD Vital Signs Period Temp Pulse Resp BP Sys/Reyes Pulse Ox Last 24 Hr 97 F-98.4 F 88-120 22-24 90-118/63-81 94-98 cor-rrr lungs decreased bs at bases abd soft,nt ext no edema CBC, BMP 05/25/18 05:30 05/26/18 08:20 Microbiology 05/20/18 12:00 Blood - Peripheral Venous Blood Culture - Final NO GROWTH AFTER 5 DAYS INCUBATION 05/20/18 12:00 Blood - Peripheral Venous Blood Culture - Final NO GROWTH AFTER 5 DAYS INCUBATION 05/22/18 19:00 Transtracheal Aspiration Legionella Culture - Preliminary 05/20/18 18:00 Urine - Urine Clean Catch Legionella Antigen - Final 05/20/18 18:00 Urine - Urine Clean Catch Streptococcus pneumoniae Antigen ( M - Final 05/20/18 18:00 Urine - Urine Clean Catch Urine Culture - Final NO GROWTH OBTAINED cxray bilateral infiltrates POSITIVE legionella antigen HIV negative Microbiology 05/20/18 12:00 Blood - Peripheral Venous Blood Culture - Final NO GROWTH AFTER 5 DAYS INCUBATION 05/20/18 12:00 Blood - Peripheral Venous Blood Culture - Final NO GROWTH AFTER 5 DAYS INCUBATION 05/22/18 19:00 Transtracheal Aspiration Legionella Culture - Preliminary 05/20/18 18:00 Urine - Urine Clean Catch Legionella Antigen - Final 05/20/18 18:00 Urine - Urine Clean Catch Streptococcus pneumoniae Antigen ( M - Final 05/20/18 18:00 Urine - Urine Clean Catch Urine Culture - Final NO GROWTH OBTAINED Current Medications Albuterol Sulfate (Ventolin 0.083% Nebulizer Soln -) 1 amp NEB Q2H PRN PRN Reason: SHORT OF BREATH/WHEEZING Albuterol/Ipratropium (Duoneb -) 1 amp NEB RTID [facility] Last Admin: 05/26/18 20:44 Dose: 1 amp Allopurinol (Zyloprim -) 300 mg PO DAILY [facility] Last Admin: 05/26/18 09:29 Dose: 300 mg Aspirin (Asa -) 81 mg PO DAILY [facility] Last Admin: 05/26/18 09:31 Dose: 81 mg Atorvastatin Calcium (Lipitor -) 10 mg PO HS [facility] Last Admin: 05/26/18 22:19 Dose: 10 mg Furosemide (Lasix Injection -) 40 mg IVPUSH DAILY [facility] Last Admin: 05/26/18 10:33 Dose: 40 mg Heparin Sodium (Porcine) (Heparin -) 5,000 unit SQ TID [facility] Last Admin: 05/27/18 05:54 Dose: 5,000 unit Doxycycline Hyclate 100 mg/ (Dextrose) 100 mls @ 100 mls/hr IVPB BID [facility] Last Admin: 05/26/18 22:19 Dose: 100 mls/hr Losartan Potassium (Cozaar -) 25 mg PO DAILY [facility] Last Admin: 05/26/18 10:34 Dose: 25 mg Melatonin (Melatonin) 1 mg PO HS PRN PRN Reason: INSOMNIA Metoprolol Tartrate (Lopressor -) 12.5 mg PO BID [facility] Last Admin: 05/26/18 22:19 Dose: 12.5 mg Metoprolol Tartrate (Lopressor Injection -) 5 mg IVPUSH Q4H PRN PRN Reason: TACHYCARDIA > 110 Last Admin: 05/26/18 12:41 Dose: 5 mg Multivitamins/Minerals/Vitamin C (Tab-A-Vit -) 1 tab PO DAILY [facility] Last Admin: 05/26/18 09:31 Dose: 1 tab Nicotine (Nicoderm Patch -) 21 mg TD DAILY [facility] Last Admin: 05/26/18 09:32 Dose: 21 mg Pantoprazole Sodium (Protonix -) 40 mg PO DAILY [facility] Last Admin: 05/26/18 09:31 Dose: 40 mg a/p multilobar pneumonia-legionella!, sputum sent, prolonged QT now on docycycline CHF- EF 15-20% COPD day #8 antibiotics
--- NOTE | 2018-05-27 07:52 | PN ---
Progress Note (short form) - Note Progress Note: asymptomatic. denies CP, SOB, fever, chills, cough. staets he is eating well. Current Medications Generic Name Dose Route Start Last Admin Trade Name Freq PRN Reason Stop Dose Admin Albuterol Sulfate 1 amp 05/23/18 18:03 Ventolin 0.083% Nebulizer Soln - NEB Q2H PRN SHORT OF BREATH/WHEEZING Albuterol/Ipratropium 1 amp 05/26/18 14:00 05/26/18 20:44 Duoneb - NEB 1 amp RTID [facility] Administration Allopurinol 300 mg 05/23/18 16:00 05/26/18 09:29 Zyloprim - PO 300 mg DAILY [facility] Administration Aspirin 81 mg 05/24/18 10:00 05/26/18 09:31 Asa - PO 81 mg DAILY [facility] Administration Atorvastatin Calcium 10 mg 05/23/18 22:00 05/26/18 22:19 Lipitor - PO 10 mg HS [facility] Administration Furosemide 40 mg 05/26/18 10:00 05/26/18 10:33 Lasix Injection - IVPUSH 40 mg DAILY [facility] Administration Heparin Sodium (Porcine) 5,000 unit 05/23/18 22:00 05/27/18 05:54 Heparin - SQ 5,000 unit TID [facility] Administration Doxycycline Hyclate 100 mg/ 100 mls @ 100 mls/hr 05/25/18 10:00 05/26/18 22: 19 Dextrose IVPB 100 mls/hr BID [facility] Administration Losartan Potassium 25 mg 05/26/18 10:00 05/26/18 10:34 Cozaar - PO 25 mg DAILY [facility] Administration Melatonin 1 mg 05/23/18 18:03 Melatonin PO HS PRN INSOMNIA Metoprolol Tartrate 12.5 mg 05/26/18 10:00 05/26/18 22:19 Lopressor - PO 12.5 mg BID [facility] Administration Metoprolol Tartrate 5 mg 05/26/18 09:17 05/26/18 12:41 Lopressor Injection - IVPUSH 5 mg Q4H PRN Administration TACHYCARDIA > 110 Multivitamins/Minerals/Vitamin C 1 tab 05/26/18 10:00 05/26/18 09:31 Tab-A-Vit - PO 1 tab DAILY [facility] Administration Nicotine 21 mg 05/24/18 10:00 09/07/18 09:32 Nicoderm Patch - TD 21 mg DAILY [facility] Administration Pantoprazole Sodium 40 mg 05/24/18 10:00 05/26/18 09:31 Protonix - PO 40 mg DAILY [facility] Administration Last Vital Signs Temp Pulse Resp BP Pulse Ox 98.2 F 93 H 22 106/73 98 05/27/18 00:00 05/27/18 04:00 05/27/18 02:13 05/27/18 04:00 05/27/18 05:43 Intake & Output 05/24/18 05/25/18 05/26/18 05/27/18 23:59 23:59 23:59 23:59 Intake Total 567 994 440 200 Output Total 1300 2550 600 Balance -733 -4706 -160 200 Weight 135 lb 8 oz 136 lb 8 oz 128 lb 9 oz General NAD, CV S1 S2 tachy Lungs decreased breath sounds bases. no wheezing/rales/rhonchi Extremities no pedal edema CBCD WBC 8.8 K/mm3 (4.0-10.0) 05/25/18 05:30 RBC 4.06 M/mm3 (4.00-5.60) 05/25/18 05:30 Hgb 12.6 GM/dL (11.7-16.9) 05/25/18 05:30 Hct 38.0 % (35.4-49) 05/25/18 05:30 MCV 93.5 fl (80-96) 05/25/18 05:30 MCHC 33.2 g/dl (32.0-35.9) 05/25/18 05:30 RDW 15.4 % (11.9-15.9) 05/25/18 05:30 Plt Count 318 K/MM3 (134-434) 05/25/18 05:30 MPV 10.0 fl (7.5-11.1) 05/25/18 05:30 CMP Sodium 140 mmol/L (136-145) 05/26/18 08:20 Potassium 3.9 mmol/L (3.5-5.1) 05/26/18 08:20 Chloride 100 mmol/L (98-107) 05/26/18 08:20 Carbon Dioxide 31 mmol/L (21-32) 05/26/18 08:20 Anion Gap 9 MMOL/L (8-16) 05/26/18 08:20 BUN 31 mg/dL (7-18) H 05/26/18 08:20 Creatinine 1.0 mg/dL (0.7-1.3) 05/26/18 08:20 Creat Clearance w eGFR > 60 (>60) 05/26/18 08:20 Calcium 8.9 mg/dL (8.5-10.1) 05/26/18 08:20 Total Bilirubin 0.9 mg/dL (0.2-1.0) 05/23/18 05:30 AST 79 U/L (15-37) H D 05/23/18 05:30 ALT 46 U/L (12-78) 05/23/18 05:30 Alkaline Phosphatase 98 U/L (45-117) 05/23/18 05:30 Total Protein 5.6 g/dl (6.4-8.2) L 05/23/18 05:30 Albumin 1.7 g/dl (3.4-5.0) L 05/23/18 05:30 ASSESSMENT AND PLAN: 67 yo M with PMHx of CAD s/p CABG (2002), CHF (?systolic vs diastolic), active heavy smoker x35 years, COPD, HTN, HLD admitted with acute hypoxic respiratory failure. 1. Acute hypoxic respiratory failure likely from sepsis with Multifocal PNA/ Acute systolic HF exacerbation +/- COPD exacerbation- clinically improved. saturating 100% on 4L NC. cont of treatment for PNA and volume overload. bipap HS. further titration of supplemental oxygen. critical care on board 2. Severe systolic dysfunction with very poor EF-clinically stable. off dobutamine ggt. cont to titrate heart failure medications as tolerated. cont lasix 40mg IV daily, metoprolol, ARB. will start aldactone pending hemodynamics. plan for NMST on tuesday. will likely need life vest prior to discharge. cardio on board. 3. Sepsis due to PNA- +legionella.switched to doxy day 8 due to prolonged QTc. should complete 14day course. ID on board 4. Hyponatremia- hypervolumeic. now resolved 5. hypokalemia-resolved 6. Hypophosphatemia- resolved 7. Severe malnutrition- evident by body habitus and low BMI. encourage ensure and dietary supplements 8. OLIMPIA- due to sepsis. liekly now medication induced with over diuresis. slowly improving. avoid nephrotoxic agents. titrate as needed 9. Continuos nicotine dependence- nicotine patch. counselled on tobacco cessation. claims he is done with cigarettes. support 10. HTN- controlled 11. Multifocal Atrial tachycardia 12. Prolonged QT- daily EKG. 13. DVT ppx- Hep sq 14. ambulated 5 feet with PT yesterday. would benefit from ALPHONSO on discharge Visit type - Emergency Visit Emergency Visit: Yes ED Registration Date: 05/20/18 Care time: The patient presented to the Emergency Department on the above date and was hospitalized for further evaluation of their emergent condition. - New Patient This patient is new to me today: No - Critical Care Critical Care patient: No - Discharge Referral Referred to [facility] Med P.C.: No
[2018-05-27] MEDS: ALBUTEROL SO4 2.5/IPRATROPIUM 0.5 INH SOL 3 ML VIAL.NEB. NEB SCH ×3 (08:03→21:28)
--- NOTE | 2018-05-27 08:30 | PN ---
Progress Note, Physician Chief Complaint: seen and examined, no distress TELE: NSR with short self limited runs Atach Denies CP or SOB - Current Medication List Current Medications: Active Medications Albuterol Sulfate (Ventolin 0.083% Nebulizer Soln -) 1 amp NEB Q2H PRN PRN Reason: SHORT OF BREATH/WHEEZING Albuterol/Ipratropium (Duoneb -) 1 amp NEB RTID [facility] Last Admin: 05/27/18 08:03 Dose: 1 amp Allopurinol (Zyloprim -) 300 mg PO DAILY [facility] Last Admin: 05/26/18 09:29 Dose: 300 mg Aspirin (Asa -) 81 mg PO DAILY [facility] Last Admin: 05/26/18 09:31 Dose: 81 mg Atorvastatin Calcium (Lipitor -) 10 mg PO HS [facility] Last Admin: 05/26/18 22:19 Dose: 10 mg Furosemide (Lasix Injection -) 40 mg IVPUSH DAILY [facility] Last Admin: 05/26/18 10:33 Dose: 40 mg Heparin Sodium (Porcine) (Heparin -) 5,000 unit SQ TID [facility] Last Admin: 05/27/18 05:54 Dose: 5,000 unit Doxycycline Hyclate 100 mg/ (Dextrose) 100 mls @ 100 mls/hr IVPB BID [facility] Last Admin: 05/26/18 22:19 Dose: 100 mls/hr Losartan Potassium (Cozaar -) 25 mg PO DAILY [facility] Last Admin: 05/26/18 10:34 Dose: 25 mg Melatonin (Melatonin) 1 mg PO HS PRN PRN Reason: INSOMNIA Metoprolol Tartrate (Lopressor Injection -) 5 mg IVPUSH Q4H PRN PRN Reason: TACHYCARDIA > 110 Last Admin: 05/26/18 12:41 Dose: 5 mg Metoprolol Tartrate (Lopressor -) 12.5 mg PO BID [facility] Multivitamins/Minerals/Vitamin C (Tab-A-Vit -) 1 tab PO DAILY [facility] Last Admin: 05/26/18 09:31 Dose: 1 tab Nicotine (Nicoderm Patch -) 21 mg TD DAILY [facility] Last Admin: 05/26/18 09:32 Dose: 21 mg Pantoprazole Sodium (Protonix -) 40 mg PO DAILY [facility] Last Admin: 05/26/18 09:31 Dose: 40 mg - Objective Vital Signs: Vital Signs Temperature 98.2 F 05/27/18 00:00 Pulse Rate 60 05/27/18 08:02 Respiratory Rate 22 05/27/18 02:13 Blood Pressure 106/73 05/27/18 04:00 O2 Sat by Pulse Oximetry (%) 98 05/27/18 08:02 Constitutional: Yes: No Distress, Calm Cardiovascular: Yes: Regular Rate and Rhythm Respiratory: Yes: CTA Bilaterally (no rales or wheezing) Gastrointestinal: Yes: Soft Edema: No Neurological: Yes: Alert Labs: CBC, BMP 05/25/18 05:30 05/26/18 08:20 INR, PTT INR 1.04 (0.83-1.09) 05/20/18 12:00 Laboratory Tests 05/25/18 05/26/18 05:30 08:20 WBC 8.8 Hgb 12.6 Plt Count 318 Sodium 140 BUN 31 H Creatinine 1.0 Magnesium 1.5 L D - ....Imaging EKG: Image Reviewed Assessment/Plan IMP: CAD s/p CABG ETOH abuse hx PNA Chronic systolic CHF Severe MR Prolonged QTc REC: 1. Appears euvolemic. Currently on IV lasix, can try to transition to PO in next 24 hours. 2. Continue tele. 3. Keep K+ >4, Mg2+> 2 4. Would try and switch Metop tartrate to low dose Toprol prior to discharge. 5. Cont ARB as BP tolerates 6. ASA and statin. Coverage for [employer]
[2018-05-27] MEDS ORDERED: MAGNESIUM OXIDE 400 MG TABLET (FP) PO ONE (09:00)
[2018-05-27] MEDS ORDERED: PT OWN MED DRAWER 7, Y5N ONE (10:09)
[2018-05-27] MEDS: LOSARTAN POTASSIUM 25 MG TABLET PO SCH (10:13)
[2018-05-27] MEDS: FUROSEMIDE 40 MG/4 ML INJECTABLE VIAL IVPUSH SCH (10:13)
[2018-05-27] MEDS: ASPIRIN 81 MG CHEWABLE TABLETS PO SCH (10:13)
[2018-05-27] MEDS: NICOTINE 21 MG/24 HOURS TOPICAL PATCH TD SCH (10:14)
[2018-05-27] MEDS: PANTOPRAZOLE 40 MG TABLET (FP) PO SCH (10:14)
[2018-05-27] MEDS: MULTIVITAMINS (DAILY MVI) TABLET (FP) PO SCH (10:14)
[2018-05-27] MEDS: ALLOPURINOL 100 MG TABLET (FP) PO SCH (10:15)
[2018-05-27] MEDS: DOXYCYCLINE INJECTION 100 MG in DEXTROSE 5%-WATER - 100 ML IVPB SCH ×2 (10:15→22:00)
[2018-05-27] MEDS: METOPROLOL TARTRATE 25 MG TABLET (FP) PO SCH ×2 (10:16→21:23)
[2018-05-27] MEDS: METOPROLOL TARTRATE 5 MG/5 ML VIAL IVPUSH PRN (15:20)
[2018-05-27] MEDS: ATORVASTATIN CA 10 MG TABLET (FP) PO SCH (21:23)
[2018-05-28] MEDS: HEPARIN NA (PORCINE) 5,000 UNITS/ML 1ML VIAL SQ SCH ×3 (06:31→21:49)
[2018-05-28 06:41] LABS: ANION GAP 8 MMOL/L (8-16); BLOOD UREA NITROGEN 38 mg/dL (7-18); CALCIUM 8.7 mg/dL (8.5-10.1); CHLORIDE 98 mmol/L (98-107); CO2 31 mmol/L (21-32); CREATININE 1.1 mg/dL (0.7-1.3); GLUCOSE,RANDOM 145 mg/dL (74-106); MAGNESIUM 1.6 mg/dL (1.8-2.4); POTASSIUM 4.3 mmol/L (3.5-5.1); SODIUM 137 mmol/L (136-145)
[2018-05-28] MEDS ORDERED: MAGNESIUM SULF 50% (8.12 MEQ/2 ML-1 GM VIAL) IVPB ONE (07:30)
--- NOTE | 2018-05-28 07:41 | PN ---
Progress Note (short form) - Note Progress Note: alert NAD remains on ventimask no complaints Vital Signs Period Temp Pulse Resp BP Sys/Reyes Pulse Ox Last 24 Hr 98.2 F-98.4 F 60-132 18-22 87-102/60-75 95-98 cor-rrr lungs decreased bs at bases abd soft,nt ext no edema CBC, BMP 05/25/18 05:30 05/28/18 05:30 Microbiology 05/20/18 12:00 Blood - Peripheral Venous Blood Culture - Final NO GROWTH AFTER 5 DAYS INCUBATION 05/20/18 12:00 Blood - Peripheral Venous Blood Culture - Final NO GROWTH AFTER 5 DAYS INCUBATION 05/22/18 19:00 Transtracheal Aspiration Legionella Culture - Preliminary 05/20/18 18:00 Urine - Urine Clean Catch Legionella Antigen - Final 05/20/18 18:00 Urine - Urine Clean Catch Streptococcus pneumoniae Antigen ( M - Final 05/20/18 18:00 Urine - Urine Clean Catch Urine Culture - Final NO GROWTH OBTAINED POSITIVE legionella antigen HIV negative Microbiology 05/20/18 12:00 Blood - Peripheral Venous Blood Culture - Final NO GROWTH AFTER 5 DAYS INCUBATION 05/20/18 12:00 Blood - Peripheral Venous Blood Culture - Final NO GROWTH AFTER 5 DAYS INCUBATION 05/22/18 19:00 Transtracheal Aspiration Legionella Culture - Preliminary 05/20/18 18:00 Urine - Urine Clean Catch Legionella Antigen - Final 05/20/18 18:00 Urine - Urine Clean Catch Streptococcus pneumoniae Antigen ( M - Final 05/20/18 18:00 Urine - Urine Clean Catch Urine Culture - Final NO GROWTH OBTAINED Current Medications Albuterol Sulfate (Ventolin 0.083% Nebulizer Soln -) 1 amp NEB Q2H PRN PRN Reason: SHORT OF BREATH/WHEEZING Albuterol/Ipratropium (Duoneb -) 1 amp NEB RTID [facility] Last Admin: 05/27/18 21:28 Dose: 1 amp Allopurinol (Zyloprim -) 300 mg PO DAILY [facility] Last Admin: 05/27/18 10:15 Dose: 300 mg Aspirin (Asa -) 81 mg PO DAILY [facility] Last Admin: 05/27/18 10:13 Dose: 81 mg Atorvastatin Calcium (Lipitor -) 10 mg PO HS [facility] Last Admin: 05/27/18 21:23 Dose: 10 mg Furosemide (Lasix Injection -) 40 mg IVPUSH DAILY [facility] Last Admin: 05/27/18 10:13 Dose: 40 mg Heparin Sodium (Porcine) (Heparin -) 5,000 unit SQ TID [facility] Last Admin: 05/28/18 06:31 Dose: 5,000 unit Doxycycline Hyclate 100 mg/ (Dextrose) 100 mls @ 100 mls/hr IVPB BID [facility] Last Admin: 05/27/18 22:00 Dose: 100 mls/hr Losartan Potassium (Cozaar -) 25 mg PO DAILY [facility] Last Admin: 05/27/18 10:13 Dose: Not Given Melatonin (Melatonin) 1 mg PO HS PRN PRN Reason: INSOMNIA Metoprolol Tartrate (Lopressor Injection -) 5 mg IVPUSH Q4H PRN PRN Reason: TACHYCARDIA > 110 Last Admin: 05/27/18 15:20 Dose: 5 mg Metoprolol Tartrate (Lopressor -) 12.5 mg PO BID [facility] Last Admin: 05/27/18 21:23 Dose: 12.5 mg Multivitamins/Minerals/Vitamin C (Tab-A-Vit -) 1 tab PO DAILY [facility] Last Admin: 05/27/18 10:14 Dose: 1 tab Nicotine (Nicoderm Patch -) 21 mg TD DAILY [facility] Last Admin: 05/27/18 10:14 Dose: 21 mg Pantoprazole Sodium (Protonix -) 40 mg PO DAILY [facility] Last Admin: 05/27/18 10:14 Dose: 40 mg a/p multilobar pneumonia-legionella,, sputum sent, prolonged QT now on docycycline CHF- EF 15-20% COPD day #9 antibiotics f/u cxray in am
[2018-05-28] MEDS: ALBUTEROL SO4 2.5/IPRATROPIUM 0.5 INH SOL 3 ML VIAL.NEB. NEB SCH ×3 (08:00→20:46)
--- NOTE | 2018-05-28 08:17 | PN ---
Teaching Attending Note Name of Resident: Frantz Penny ATTENDING PHYSICIAN STATEMENT I saw and evaluated the patient. I reviewed the resident's note and discussed the case with the resident. I agree with the resident's findings and plan as documented. SUBJECTIVE:asymptomatic. denies CP, SOB, fever, chills, N/V/c/D OBJECTIVE: Last Vital Signs Temp Pulse Resp BP Pulse Ox 98.4 F 88 22 90/64 99 05/28/18 06:00 05/28/18 06:00 05/28/18 06:00 05/28/18 06:00 05/28/18 07:59 Intake & Output 05/25/18 05/26/18 05/27/18 05/28/18 23:59 23:59 23:59 23:59 Intake Total 994 440 650 150 Output Total 2550 600 400 Balance -1556 -160 250 150 Weight 136 lb 8 oz 128 lb 9 oz 129 lb 6.4 oz General NAD Lungs fine crackles R base no wheezing Extremities no pedal edema ASSESSMENT AND PLAN: 67 yo M with PMHx of CAD s/p CABG (2002), CHF (?systolic vs diastolic), active heavy smoker x35 years, COPD, HTN, HLD admitted with acute hypoxic respiratory failure. 1. Acute hypoxic respiratory failure likely from sepsis with Multifocal PNA/ Acute systolic HF exacerbation +/- COPD exacerbation- clinically improved. cont of treatment for PNA and volume overload. bipap HS. further titration of supplemental oxygen. critical care on board 2. Severe systolic dysfunction with very poor EF-clinically stable. off dobutamine ggt. CXR pending. cont to titrate heart failure medications as tolerated. cont lasix 40mg IV daily and will consider switching to po tomorrow, metoprolol, ARB. will start aldactone pending hemodynamics. plan for NMST on tuesday. will likely need life vest prior to discharge. cardio on board. 3. Sepsis due to PNA- +legionella.switched to doxy day 9 due to prolonged QTc. should complete 14day course. ID on board 4. Hyponatremia- hypervolumeic. now resolved 5. hypokalemia-resolved 6. Hypophosphatemia- resolved 7. Hypomagnesemia- Mg 800mg 8. Severe malnutrition- evident by body habitus and low BMI. encourage ensure and dietary supplements 9. OLIMPIA- due to sepsis. liekly now medication induced with over diuresis. slowly improving. avoid nephrotoxic agents. titrate as needed 10. Continuos nicotine dependence- nicotine patch. counselled on tobacco cessation. claims he is done with cigarettes. support 11. HTN- controlled 12. Multifocal Atrial tachycardia 13. Prolonged QT- daily EKG. 14. DVT ppx- Hep sq 15. ambulated 5 feet with PT. would benefit from ALPHONSO on discharge
--- NOTE | 2018-05-28 09:08 | PN ---
Progress Note, Physician Chief Complaint: no distress - Current Medication List Current Medications: Active Medications Albuterol Sulfate (Ventolin 0.083% Nebulizer Soln -) 1 amp NEB Q2H PRN PRN Reason: SHORT OF BREATH/WHEEZING Albuterol/Ipratropium (Duoneb -) 1 amp NEB RTID [facility] Last Admin: 05/28/18 08:00 Dose: 1 amp Allopurinol (Zyloprim -) 300 mg PO DAILY [facility] Last Admin: 05/27/18 10:15 Dose: 300 mg Aspirin (Asa -) 81 mg PO DAILY [facility] Last Admin: 05/27/18 10:13 Dose: 81 mg Atorvastatin Calcium (Lipitor -) 10 mg PO HS [facility] Last Admin: 05/27/18 21:23 Dose: 10 mg Furosemide (Lasix Injection -) 40 mg IVPUSH DAILY [facility] Last Admin: 05/27/18 10:13 Dose: 40 mg Heparin Sodium (Porcine) (Heparin -) 5,000 unit SQ TID [facility] Last Admin: 05/28/18 06:31 Dose: 5,000 unit Doxycycline Hyclate 100 mg/ (Dextrose) 100 mls @ 100 mls/hr IVPB BID [facility] Last Admin: 05/27/18 22:00 Dose: 100 mls/hr Losartan Potassium (Cozaar -) 25 mg PO DAILY [facility] Last Admin: 05/27/18 10:13 Dose: Not Given Melatonin (Melatonin) 1 mg PO HS PRN PRN Reason: INSOMNIA Metoprolol Tartrate (Lopressor Injection -) 5 mg IVPUSH Q4H PRN PRN Reason: TACHYCARDIA > 110 Last Admin: 05/27/18 15:20 Dose: 5 mg Metoprolol Tartrate (Lopressor -) 12.5 mg PO BID [facility] Last Admin: 05/27/18 21:23 Dose: 12.5 mg Multivitamins/Minerals/Vitamin C (Tab-A-Vit -) 1 tab PO DAILY [facility] Last Admin: 05/27/18 10:14 Dose: 1 tab Nicotine (Nicoderm Patch -) 21 mg TD DAILY [facility] Last Admin: 05/27/18 10:14 Dose: 21 mg Pantoprazole Sodium (Protonix -) 40 mg PO DAILY [facility] Last Admin: 05/27/18 10:14 Dose: 40 mg - Objective Vital Signs: Vital Signs Temperature 97.4 F L 05/28/18 08:44 Pulse Rate 89 09/09/18 08:44 Respiratory Rate 22 05/28/18 09:00 Blood Pressure 90/71 05/28/18 08:44 O2 Sat by Pulse Oximetry (%) 100 05/28/18 09:00 Constitutional: Yes: No Distress Cardiovascular: Yes: Regular Rate and Rhythm Respiratory: Yes: Rhonchi Gastrointestinal: Yes: Soft Edema: No Neurological: Yes: Alert Labs: CBC, BMP 05/25/18 05:30 05/28/18 05:30 INR, PTT INR 1.04 (0.83-1.09) 05/20/18 12:00 Laboratory Tests 05/25/18 05/28/18 05:30 05:30 WBC 8.8 Hgb 12.6 Plt Count 318 Sodium 137 Potassium 4.3 BUN 38 H Creatinine 1.1 Magnesium 1.6 L - ....Imaging EKG: Image Reviewed Assessment/Plan IMP: CAD s/p CABG ETOH abuse hx PNA, legionella Chronic systolic CHF Severe MR Prolonged QTc REC: 1. Appears euvolemic. Transition to PO Lasix. 2. Continue tele. 3. Keep K+ >4, Mg2+> 2 4. Would try and switch Metop tartrate to low dose Toprol prior to discharge. 5. Cont ARB as BP tolerates 6. ASA and statin. 7. Abx as per ID 8. DVT prophylaxis. Coverage for [employer]
--- NOTE | 2018-05-28 10:11 | PN ---
Physical Exam: SUBJECTIVE: Patient seen and examined this AM. Resting comfortably and eating breakfast with no complaints, says breathing is better. OBJECTIVE: Vital Signs Period Temp Pulse Resp BP Sys/Reyes Pulse Ox Last 24 Hr 97.4 F-98.4 F 85-132 22-22 88-102/60-72 95-100 GENERAL: A&O, no acute distress HEAD: Normocephalic, atraumatic. EYES: PERRL, discoloration of sclera (beige colored), proptosis noted EARS, NOSE, THROAT: oropharynx clear without exudates. Moist mucous membranes. NECK: supple without lymphadenopathy LUNGS: Lungs mostly clear with basilar crackles on the right HEART: Tachycardic, regular rythm, normal S1 and S2 without murmur ABDOMEN: Soft, nontender to palpation, normoactive bowel sounds MUSCULOSKELETAL: No bony deformities or tenderness. EXTREMITIES: 2+ pulses, warm, well-perfused. No peripheral edema. NEUROLOGICAL: Cranial nerves II-XII grossly intact. Normal speech. 5/5 strength in all extremities. PSYCHIATRIC: Cooperative. Good eye contact. Appropriate mood and affect. SKIN: Warm, dry, no rashes or lesions noted Laboratory Results - last 24 hr 05/26/18 05/27/18 05/28/18 08:20 21:03 05:30 Sodium 137 Potassium 4.3 Chloride 98 Carbon Dioxide 31 Anion Gap 8 BUN 38 H Creatinine 1.1 Creat Clearance w eGFR > 60 POC Glucometer 167.28497 Random Glucose 145 H Hemoglobin A1c % 5.9 Calcium 8.7 Phosphorus 5.0 H D Magnesium 1.6 L Active Medications Generic Name Dose Route Start Last Admin Trade Name Freq PRN Reason Stop Dose Admin Albuterol Sulfate 1 amp 05/23/18 18:03 Ventolin 0.083% Nebulizer Soln - NEB Q2H PRN SHORT OF BREATH/WHEEZING Albuterol/Ipratropium 1 amp 05/26/18 14:00 05/28/18 08:00 Duoneb - NEB 1 amp RTID ELLIE Administration Allopurinol 300 mg 05/23/18 16:00 05/27/18 10:15 Zyloprim - PO 300 mg DAILY ELLIE Administration Aspirin 81 mg 05/24/18 10:00 05/27/18 10:13 Asa - PO 81 mg DAILY ELLIE Administration Atorvastatin Calcium 10 mg 05/23/18 22:00 05/27/18 21:23 Lipitor - PO 10 mg HS ELLIE Administration Furosemide 40 mg 05/28/18 14:00 Lasix - PO BID@0600,1400 ELLIE Heparin Sodium (Porcine) 5,000 unit 05/23/18 22:00 05/28/18 06:31 Heparin - SQ 5,000 unit TID ELLIE Administration Doxycycline Hyclate 100 mg/ 100 mls @ 100 mls/hr 05/25/18 10:00 05/27/18 22: 00 Dextrose IVPB 100 mls/hr BID ELLIE Administration Losartan Potassium 25 mg 05/26/18 10:00 05/27/18 10:13 Cozaar - PO Not Given DAILY ELLIE Melatonin 1 mg 05/23/18 18:03 Melatonin PO HS PRN INSOMNIA Metoprolol Tartrate 5 mg 05/26/18 09:17 05/27/18 15:20 Lopressor Injection - IVPUSH 5 mg Q4H PRN Administration TACHYCARDIA > 110 Metoprolol Tartrate 12.5 mg 05/27/18 10:00 05/27/18 21:23 Lopressor - PO 12.5 mg BID ELLIE Administration Multivitamins/Minerals/Vitamin C 1 tab 05/26/18 10:00 05/27/18 10:14 Tab-A-Vit - PO 1 tab DAILY ELLIE Administration Nicotine 21 mg 05/24/18 10:00 05/27/18 10:14 Nicoderm Patch - TD 21 mg DAILY ELLIE Administration Pantoprazole Sodium 40 mg 05/24/18 10:00 05/27/18 10:14 Protonix - PO 40 mg DAILY ELLIE Administration ASSESSMENT/PLAN: 67 yo male with PMH CAD (s/p CABG), CHF, COPD, HTN, HLD, EtOH abuse admitted with SOB and weakness Acute Hypoxic Respiratory Failure with COPD history -Respiratory status improving, no longer requiring bilevel ventilation during the day -Pt is saturating well on 5L NC -Duonebs Q4 ELLIE -Albuterol Neb Q2 PRN Systolic Heart Failure -Echo noted: Severe LV systolic dysfunction, EF 15-20% -Cardiology Consult Appreciated Restudy coronaries and ICD eval, pt is medically stable for eval -Pt with Lasix 40 mg IV, can likely be switched to 40 mg PO daily -Pt medically safe for Stress test likely on Tuesday, Pt may need to be fitted for a LifeVest Defibrillator prior to discharge -CXR ordered Pneumonia -CXR, congestive changes improving, can repeat CXR in AM to check for resolution -Urine legionella presumed positive, awaiting final tracheal antigen result -Pt is afebrile, WBC 8.8 today, trending down -Pt with prolonged QTc on ECG -Levaquin 500 mg IV Daily 5 days -Pt placed on Doxycycline 100 mg IV BID as per ID due to QTc, Day 4, Day 9 of Abx total CAD -With no acute signs of ischemia -ASA HTN -Lopressor 12.5 mg PO BID, can be converted to Toprol XL prior to discharge -Losartan 25 mg PO Daily -Lopressor 5mg Q4 PRN HTN if HR >110, Required once in last 24 hrs HLD -Lipitor 10 mg PO HS Prolonged QTc -pt no longer receiving QT prolonging abx -Pt monitored on telemetry bed with no overnight events noted Tobacco use -Nicoderm patch daily DVT Prophylaxis -Heparin 5000 units SQ TID -Early ambulation, OOB to chair FEN -Fluids: none -Electrolytes: Mg 1.6, repleting, BMP in AM -Nutrition: Chol/Fat/Sodium Restricted diet Disposition Continue to monitor on Telemetry Visit type - Emergency Visit Emergency Visit: Yes ED Registration Date: 05/20/18 Care time: The patient presented to the Emergency Department on the above date and was hospitalized for further evaluation of their emergent condition. - New Patient This patient is new to me today: No - Critical Care Critical Care patient: No
[2018-05-28] MEDS: ASPIRIN 81 MG CHEWABLE TABLETS PO SCH (10:38)
[2018-05-28] MEDS: LOSARTAN POTASSIUM 25 MG TABLET PO SCH (10:38)
[2018-05-28] MEDS: METOPROLOL TARTRATE 25 MG TABLET (FP) PO SCH ×2 (10:38→21:50)
[2018-05-28] MEDS: PANTOPRAZOLE 40 MG TABLET (FP) PO SCH (10:39)
[2018-05-28] MEDS: MULTIVITAMINS (DAILY MVI) TABLET (FP) PO SCH (10:39)
[2018-05-28] MEDS: ALLOPURINOL 100 MG TABLET (FP) PO SCH (10:39)
[2018-05-28] MEDS: NICOTINE 21 MG/24 HOURS TOPICAL PATCH TD SCH (10:39)
[2018-05-28] MEDS ORDERED: PT OWN MED DRAWER 7, Y5N ONE ×3 (10:53→21:21)
[2018-05-28] MEDS: DOXYCYCLINE INJECTION 100 MG in DEXTROSE 5%-WATER - 100 ML IVPB SCH ×2 (10:54→23:06)
--- NOTE | 2018-05-28 10:54 | PN ---
Progress Note (short form) - Note Progress Note: Seen and examined in SDU patient remains on venti mask 50% desaturation to 86-88% while on NC 5lpm while eating Denies CP/n/v/c, mild SOB Current Medications Albuterol Sulfate (Ventolin 0.083% Nebulizer Soln -) 1 amp NEB Q2H PRN PRN Reason: SHORT OF BREATH/WHEEZING Albuterol/Ipratropium (Duoneb -) 1 amp NEB RTID [facility] Last Admin: 05/28/18 08:00 Dose: 1 amp Allopurinol (Zyloprim -) 300 mg PO DAILY [facility] Last Admin: 05/28/18 10:39 Dose: 300 mg Aspirin (Asa -) 81 mg PO DAILY [facility] Last Admin: 05/28/18 10:38 Dose: 81 mg Atorvastatin Calcium (Lipitor -) 10 mg PO HS [facility] Last Admin: 05/27/18 21:23 Dose: 10 mg Furosemide (Lasix -) 40 mg PO BID@0600,1400 [facility] Heparin Sodium (Porcine) (Heparin -) 5,000 unit SQ TID [facility] Last Admin: 05/28/18 06:31 Dose: 5,000 unit Doxycycline Hyclate 100 mg/ (Dextrose) 100 mls @ 100 mls/hr IVPB BID [facility] Last Admin: 05/27/18 22:00 Dose: 100 mls/hr Losartan Potassium (Cozaar -) 25 mg PO DAILY [facility] Last Admin: 05/28/18 10:38 Dose: 25 mg Melatonin (Melatonin) 1 mg PO HS PRN PRN Reason: INSOMNIA Metoprolol Tartrate (Lopressor Injection -) 5 mg IVPUSH Q4H PRN PRN Reason: TACHYCARDIA > 110 Last Admin: 05/27/18 15:20 Dose: 5 mg Metoprolol Tartrate (Lopressor -) 12.5 mg PO BID [facility] Last Admin: 05/28/18 10:38 Dose: 12.5 mg Multivitamins/Minerals/Vitamin C (Tab-A-Vit -) 1 tab PO DAILY [facility] Last Admin: 05/28/18 10:39 Dose: 1 tab Nicotine (Nicoderm Patch -) 21 mg TD DAILY [facility] Last Admin: 05/28/18 10:39 Dose: 21 mg Pantoprazole Sodium (Protonix -) 40 mg PO DAILY [facility] Last Admin: 05/28/18 10:39 Dose: 40 mg Vital Signs Period Temp Pulse Resp BP Sys/Reyes Pulse Ox Last 24 Hr 97.3 F-98.4 F 85-132 22-22 88-102/60-72 95-100 Intake & Output 05/25/18 05/26/1818 05/28/18 23:59 23:59 23:59 23:59 Intake Total 994 440 650 150 Output Total 2550 600 400 Balance -1556 -160 250 150 Weight 61.915 kg 58.315 kg 58.695 kg General: awake, alert and cooperative HEENT: PERRL, no JVD Pulm: diminished with crackles CV: RRR Abd: SNTND Ext: WWP, +2 pulses, no edema Neuro: grossly intact CBC, BMP 05/28/18 11:15 05/28/18 11:15 CXR: relatively unchanged, mild improvement of PVC, A/P Acute Hypoxic Respiratory Failure Pneumonia +Legionella Ag Acute Pulmonary Edema/LV Systolic Heart Failure Severe Mitral Regurgitation COPD CAD s/p CABG HTN Hyperipidemia - continue antibiotics, - will continue lasix BID goal net even to out - monitor urine output, creatinine - inhaled bronchodilators - O2 to keep SpO2 >90% - BiPAP as needed to assist in work of breathing - O2 for sat >90%, use venti mask as need - replete lytes - DVT prophylaxis Boerem ACNP Pulm/CCM CCT: 35m
[2018-05-28 11:26] LABS: HEMATOCRIT 38.4 % (35.4-49); HEMOGLOBIN 12.9 GM/dL (11.7-16.9); MCH 31.3 pg (25.7-33.7); MCHC 33.7 g/dl (32.0-35.9); MEAN PLT VOLUME 9.3 fl (7.5-11.1); PLATELET COUNT 365 K/MM3 (134-434); RBC 4.13 M/mm3 (4.00-5.60); RDW 15.5 % (11.9-15.9); WHITE BLOOD COUNT 11.9 K/mm3 (4.0-10.0)
[2018-05-28 11:55] LABS: ANION GAP 9 MMOL/L (8-16); BLOOD UREA NITROGEN 35 mg/dL (7-18); CALCIUM 8.4 mg/dL (8.5-10.1); CHLORIDE 100 mmol/L (98-107); CO2 30 mmol/L (21-32); CREATININE 1.1 mg/dL (0.7-1.3); GLUCOSE,RANDOM 187 mg/dL (74-106); MAGNESIUM 2.6 mg/dL (1.8-2.4); PHOSPHOROUS 4.4 mg/dL (2.5-4.9); POTASSIUM 3.8 mmol/L (3.5-5.1); SODIUM 139 mmol/L (136-145)
[2018-05-28] MEDS: FUROSEMIDE 40 MG TABLET (FP) PO SCH (14:47)
[2018-05-28] MEDS: ATORVASTATIN CA 10 MG TABLET (FP) PO SCH (21:49)
[2018-05-29] MEDS: HEPARIN NA (PORCINE) 5,000 UNITS/ML 1ML VIAL SQ SCH ×3 (06:18→21:48)
[2018-05-29] MEDS: FUROSEMIDE 40 MG TABLET (FP) PO SCH ×2 (06:30→15:02)
[2018-05-29 06:52] LABS: MCH 31.2 pg (25.7-33.7); MCHC 33.4 g/dl (32.0-35.9); MEAN CELL VOLUME 93.5 fl (80-96); PLATELET COUNT 327 K/MM3 (134-434); RBC 3.53 M/mm3 (4.00-5.60); RDW 15.3 % (11.9-15.9); WHITE BLOOD COUNT 10.4 K/mm3 (4.0-10.0)
[2018-05-29 07:14] LABS: ANION GAP 8 MMOL/L (8-16); BLOOD UREA NITROGEN 38 mg/dL (7-18); CALCIUM 8.5 mg/dL (8.5-10.1); CHLORIDE 97 mmol/L (98-107); CO2 30 mmol/L (21-32); GLUCOSE,RANDOM 128 mg/dL (74-106); POTASSIUM 4.2 mmol/L (3.5-5.1); SODIUM 135 mmol/L (136-145)
[2018-05-29 07:15] LABS: CREATININE 1.1 mg/dL (0.7-1.3)
[2018-05-29] MEDS: ALBUTEROL SO4 2.5/IPRATROPIUM 0.5 INH SOL 3 ML VIAL.NEB. NEB SCH ×3 (07:45→20:18)
--- NOTE | 2018-05-29 09:01 | PN ---
Progress Note, Physician History of Present Illness: Patient is a 67 black man with history of CAD s/p CABG (denies hx MD), etoh abuse (drinks 1/3 bottle of gin per day; last drink ?2 days ago), current tobacco abuse (and for many years at 1/2-1 ppd), HTN, HLD, here today complaining of shortness of breath for the past 4 days. Patient states that he has chest pain in both sides when he takes a deep breath. Patient states that he noticed his eyes were proptotic starting this morning. Denies history of thyroid problems. Last drink was yesterday. Daughter endorses tactile fever. Denies history of blood clots. Denies leg swelling. - Current Medication List Current Medications: Active Medications Albuterol/Ipratropium (Duoneb -) 1 amp NEB RTID [facility] Last Admin: 05/28/18 20:46 Dose: 1 amp Allopurinol (Zyloprim -) 300 mg PO DAILY [facility] Last Admin: 05/28/18 10:39 Dose: 300 mg Aspirin (Asa -) 81 mg PO DAILY [facility] Last Admin: 05/28/18 10:38 Dose: 81 mg Atorvastatin Calcium (Lipitor -) 10 mg PO HS [facility] Last Admin: 05/28/18 21:49 Dose: 10 mg Furosemide (Lasix -) 40 mg PO BID@0600,1400 [facility] Last Admin: 05/29/18 06:30 Dose: Not Given Heparin Sodium (Porcine) (Heparin -) 5,000 unit SQ TID [facility] Last Admin: 05/29/18 06:18 Dose: 5,000 unit Doxycycline Hyclate 100 mg/ (Dextrose) 100 mls @ 100 mls/hr IVPB BID [facility] Last Admin: 05/28/18 23:06 Dose: 100 mls/hr Losartan Potassium (Cozaar -) 25 mg PO DAILY [facility] Last Admin: 05/28/18 10:38 Dose: 25 mg Melatonin (Melatonin) 1 mg PO HS PRN PRN Reason: INSOMNIA Metoprolol Tartrate (Lopressor Injection -) 5 mg IVPUSH Q4H PRN PRN Reason: TACHYCARDIA > 110 Last Admin: 05/27/18 15:20 Dose: 5 mg Metoprolol Tartrate (Lopressor -) 12.5 mg PO BID [facility] Last Admin: 05/28/18 21:50 Dose: 12.5 mg Multivitamins/Minerals/Vitamin C (Tab-A-Vit -) 1 tab PO DAILY [facility] Last Admin: 05/28/18 10:39 Dose: 1 tab Nicotine (Nicoderm Patch -) 21 mg TD DAILY [facility] Last Admin: 05/28/18 10:39 Dose: 21 mg Pantoprazole Sodium (Protonix -) 40 mg PO DAILY [facility] Last Admin: 05/28/18 10:39 Dose: 40 mg - Objective Vital Signs: Vital Signs Temperature 98 F 05/29/18 06:00 Pulse Rate 94 H 05/29/18 06:00 Respiratory Rate 16 05/29/18 06:00 Blood Pressure 86/59 05/29/18 06:00 O2 Sat by Pulse Oximetry (%) 100 05/28/18 21:00 Eyes: Yes: WNL, Conjunctiva Clear, EOM Intact HENT: Yes: WNL, Atraumatic, Normocephalic Neck: Yes: WNL, Supple, Trachea Midline Cardiovascular: Yes: WNL, Regular Rate and Rhythm Respiratory: Yes: WNL, Regular, CTA Bilaterally Gastrointestinal: Yes: WNL, Normal Bowel Sounds Genitourinary: Yes: WNL Musculoskeletal: Yes: WNL Extremities: Yes: WNL Edema: No Integumentary: Yes: WNL Neurological: Yes: WNL, Alert, Oriented ...Motor Strength: WNL Psychiatric: Yes: WNL Labs: CBC, BMP 05/29/18 05:30 05/29/18 05:30 INR, PTT INR 1.04 (0.83-1.09) 05/20/18 12:00 Assessment/Plan IMP: CAD s/p CABG ETOH abuse hx PNA, legionella Chronic systolic CHF Severe MR Prolonged QTc REC: 1. Appears euvolemic. Transition to PO Lasix. 2. Continue tele. 3. Keep K+ >4, Mg2+> 2 4. Would try and switch Metop tartrate to low dose Toprol prior to discharge. 5. Cont ARB as BP tolerates 6. ASA and statin. 7. Abx as per ID 8. DVT prophylaxis. 9. Awaiting results of MIBI ST cc time spent 36 min
[2018-05-29] MEDS ORDERED: REGADENOSON 0.4 MG/5 ML PRE-FILLED SYRINGE IVPUSH ONE ×2 (09:15→11:16)
--- NOTE | 2018-05-29 11:43 | PN ---
Physical Exam: SUBJECTIVE: Patient seen and examined this AM. Pt with no complaints today and says his breathing is doing well. Denies any fever, chills, chest pain, SOB, palpitations. OBJECTIVE: Vital Signs Period Temp Pulse Resp BP Sys/Reyes Pulse Ox Last 24 Hr 97.0 F-98 F 88-114 16-26 86-122/55-97 100 GENERAL: A&O, no acute distress HEAD: Normocephalic, atraumatic. EYES: PERRL, discoloration of sclera (beige colored), proptosis noted EARS, NOSE, THROAT: oropharynx clear without exudates. Moist mucous membranes. NECK: supple without lymphadenopathy LUNGS: CTA with no crackles today HEART: Tachycardic, regular rythm, normal S1 and S2 without murmur ABDOMEN: Soft, nontender to palpation, normoactive bowel sounds MUSCULOSKELETAL: No bony deformities or tenderness. EXTREMITIES: 2+ pulses, warm, well-perfused. No peripheral edema. NEUROLOGICAL: Cranial nerves II-XII grossly intact. Normal speech. 5/5 strength in all extremities. PSYCHIATRIC: Cooperative. Good eye contact. Appropriate mood and affect. SKIN: Warm, dry, no rashes or lesions noted Laboratory Results - last 24 hr 05/28/18 05/28/18 05/28/18 06:06 11:04 11:15 WBC RBC Hgb Hct MCV MCH MCHC RDW Plt Count MPV Sodium 139 Potassium 3.8 Chloride 100 Carbon Dioxide 30 Anion Gap 9 BUN 35 H Creatinine 1.1 Creat Clearance w eGFR > 60 POC Glucometer 133.05472 188.80986 Random Glucose 187 H D Calcium 8.4 L Phosphorus 4.4 Magnesium 2.6 H D 05/29/18 05/29/18 05/29/18 05:30 05:30 05:54 WBC 10.4 H RBC 3.53 L Hgb 11.0 L Hct 33.0 L MCV 93.5 MCH 31.2 MCHC 33.4 RDW 15.3 Plt Count 327 MPV 10.0 Sodium 135 L Potassium 4.2 Chloride 97 L Carbon Dioxide 30 Anion Gap 8 BUN 38 H Creatinine 1.1 Creat Clearance w eGFR > 60 POC Glucometer 124.39632 Random Glucose 128 H D Calcium 8.5 Phosphorus 4.0 Magnesium 2.0 D Active Medications Generic Name Dose Route Start Last Admin Trade Name Freq PRN Reason Stop Dose Admin Albuterol/Ipratropium 1 amp 05/26/18 14:00 05/29/18 07:45 Duoneb - NEB 1 amp RTID ELLIE Administration Allopurinol 300 mg 05/23/18 16:00 05/28/18 10:39 Zyloprim - PO 300 mg DAILY ELLIE Administration Aspirin 81 mg 05/24/18 10:00 05/28/18 10:38 Asa - PO 81 mg DAILY ELLIE Administration Atorvastatin Calcium 10 mg 05/23/18 22:00 05/28/18 21:49 Lipitor - PO 10 mg HS ELLIE Administration Furosemide 40 mg 05/28/18 14:00 05/29/18 06:30 Lasix - PO Not Given BID@0600,1400 ELLIE Heparin Sodium (Porcine) 5,000 unit 05/23/18 22:00 05/29/18 06:18 Heparin - SQ 5,000 unit TID ELLIE Administration Doxycycline Hyclate 100 mg/ 100 mls @ 100 mls/hr 05/25/18 10:00 05/28/18 23: 06 Dextrose IVPB 100 mls/hr BID ELLIE Administration Losartan Potassium 25 mg 05/26/18 10:00 05/28/18 10:38 Cozaar - PO 25 mg DAILY ELLIE Administration Melatonin 1 mg 05/23/18 18:03 Melatonin PO HS PRN INSOMNIA Metoprolol Tartrate 5 mg 05/26/18 09:17 05/27/18 15:20 Lopressor Injection - IVPUSH 5 mg Q4H PRN Administration TACHYCARDIA > 110 Metoprolol Tartrate 12.5 mg 05/27/18 10:00 05/28/18 21:50 Lopressor - PO 12.5 mg BID ELLIE Administration Multivitamins/Minerals/Vitamin C 1 tab 05/26/18 10:00 05/28/18 10:39 Tab-A-Vit - PO 1 tab DAILY ELLIE Administration Nicotine 21 mg 05/24/18 10:00 05/28/18 10:39 Nicoderm Patch - TD 21 mg DAILY ELLIE Administration Pantoprazole Sodium 40 mg 05/24/18 10:00 05/28/18 10:39 Protonix - PO 40 mg DAILY ELLIE Administration ASSESSMENT/PLAN: 67 yo male with PMH CAD (s/p CABG), CHF, COPD, HTN, HLD, EtOH abuse admitted with SOB and weakness Acute Hypoxic Respiratory Failure with COPD history -Respiratory status improving, no longer requiring bilevel ventilation during the day -Pt is saturating well on 5L NC -Duonebs Q4 ELLIE -Albuterol Neb Q2 PRN Systolic Heart Failure -Echo noted: Severe LV systolic dysfunction, EF 15-20% -Cardiology Consult Appreciated Restudy coronaries and ICD eval, pt is medically stable for eval -Lasix switched to 40 mg PO BID, held for low b.p. -Nuclear stress test today, will follow results -Pt may need to be fitted for a LifeVest Defibrillator prior to discharge Pneumonia -CXR, congestive changes improving -Urine legionella presumed positive, awaiting final tracheal antigen result -Pt is afebrile -Pt with prolonged QTc on ECG -Levaquin 500 mg IV Daily 5 days -Pt placed on Doxycycline 100 mg IV BID as per ID due to QTc, Day 5, Day 10 of Abx total CAD -With no acute signs of ischemia -ASA HTN -Lopressor 12.5 mg PO BID, can be converted to Toprol XL prior to discharge -Losartan 25 mg PO Daily -Lopressor 5mg Q4 PRN HTN if HR >110, Has not required in last 24 hrs HLD -Lipitor 10 mg PO HS Prolonged QTc -pt no longer receiving QT prolonging abx -Pt monitored on telemetry bed with no overnight events noted Tobacco use -Nicoderm patch daily DVT Prophylaxis -Heparin 5000 units SQ TID -Early ambulation, OOB to chair FEN -Fluids: none -Electrolytes: Mg 2.0, BMP in AM -Nutrition: Chol/Fat/Sodium Restricted diet Disposition Continue to monitor on Telemetry Visit type - Emergency Visit Emergency Visit: Yes ED Registration Date: 05/20/18 Care time: The patient presented to the Emergency Department on the above date and was hospitalized for further evaluation of their emergent condition. - New Patient This patient is new to me today: No - Critical Care Critical Care patient: No
[2018-05-29] MEDS: DOXYCYCLINE INJECTION 100 MG in DEXTROSE 5%-WATER - 100 ML IVPB SCH ×2 (13:00→21:46)
[2018-05-29] MEDS: ALLOPURINOL 100 MG TABLET (FP) PO SCH (13:01)
[2018-05-29] MEDS: LOSARTAN POTASSIUM 25 MG TABLET PO SCH (13:01)
--- NOTE | 2018-05-29 13:01 | PN ---
Teaching Attending Note Name of Resident: Frantz Penny ATTENDING PHYSICIAN STATEMENT I saw and evaluated the patient. I reviewed the resident's note and discussed the case with the resident. I agree with the resident's findings and plan as documented. SUBJECTIVE:asymptomatic. denies CP, SOB, fever, chills, N/V/C/D OBJECTIVE: Last Vital Signs Temp Pulse Resp BP Pulse Ox 98 F 94 H 16 86/59 100 05/29/18 06:00 05/29/18 06:00 05/29/18 06:00 05/29/18 06:00 05/28/18 21:00 Intake & Output 05/26/18 05/27/18 05/28/18 05/29/18 23:59 23:59 23:59 23:59 Intake Total 440 650 650 100 Output Total 600 400 950 200 Balance -160 250 -300 -100 Weight 128 lb 9 oz 129 lb 6.4 oz 124 lb 11.2 oz General NAD Lungs CTA B/L no wheezing/rales/crackles Extremities no pedal edema ASSESSMENT AND PLAN: 67 yo M with PMHx of CAD s/p CABG (2002), CHF (?systolic vs diastolic), active heavy smoker x35 years, COPD, HTN, HLD admitted with acute hypoxic respiratory failure. 1. Acute hypoxic respiratory failure likely from sepsis with Multifocal PNA/ Acute systolic HF exacerbation +/- COPD exacerbation- clinically improved. cont of treatment for PNA and volume overload. bipap HS. further titration of supplemental oxygen. critical care on board 2. Severe systolic dysfunction with very poor EF-appears euvolemic. now on Lasix po BID. cont to titrate medications as tolerated. willl start aldactone once hemodynamics will permit. NMST to be done today to assess for ischemia. will likely need life vest prior to discharge. cardio on board. 3. Sepsis due to PNA- +legionella.switched to doxy day 10 due to prolonged QTc. should complete 14day course. ID on board 4. Hyponatremia- hypervolumeic. now resolved 5. hypokalemia-resolved 6. Hypophosphatemia- resolved 7. Hypomagnesemia- resolved 8. Severe malnutrition- evident by body habitus and low BMI. encourage ensure and dietary supplements 9. OLIMPIA- due to sepsis. liekly now medication induced with over diuresis. slowly improving. avoid nephrotoxic agents. titrate as needed 10. Continuos nicotine dependence- nicotine patch. counselled on tobacco cessation. claims he is done with cigarettes. support 11. HTN- controlled 12. Multifocal Atrial tachycardia 13. Prolonged QT- daily EKG. 14. DVT ppx- Hep sq 15. ambulated 5 feet with PT. would benefit from ALPHONSO on discharge
[2018-05-29] MEDS: PANTOPRAZOLE 40 MG TABLET (FP) PO SCH (13:04)
[2018-05-29] MEDS: METOPROLOL TARTRATE 25 MG TABLET (FP) PO SCH ×2 (13:04→21:47)
--- NOTE | 2018-05-29 14:00 | PN ---
Progress Note (short form) - Note Progress Note: Breathing feels a little better today. Still requiring VM O2. Intermittent NIPPV support overnight. No CP. CXR: No gross change in bilateral airspace disease Intake & Output 05/26/18 05/27/18 05/28/18 05/29/18 23:59 23:59 23:59 23:59 Intake Total 440 650 650 100 Output Total 600 400 950 200 Balance -160 250 -300 -100 Weight 128 lb 9 oz 129 lb 6.4 oz 124 lb 11.2 oz Last Vital Signs Temp Pulse Resp BP Pulse Ox 98 F 96 H 16 98/68 100 05/29/18 06:00 05/29/18 13:45 05/29/18 13:45 05/29/18 13:45 05/28/18 21:00 Active Medications Albuterol/Ipratropium (Duoneb -) 1 amp NEB RTID [facility] Last Admin: 05/29/18 07:45 Dose: 1 amp Allopurinol (Zyloprim -) 300 mg PO DAILY [facility] Last Admin: 05/28/18 10:39 Dose: 300 mg Aspirin (Asa -) 81 mg PO DAILY [facility] Last Admin: 05/28/18 10:38 Dose: 81 mg Atorvastatin Calcium (Lipitor -) 10 mg PO HS [facility] Last Admin: 05/28/18 21:49 Dose: 10 mg Furosemide (Lasix -) 40 mg PO BID@0600,1400 [facility] Last Admin: 05/29/18 06:30 Dose: Not Given Heparin Sodium (Porcine) (Heparin -) 5,000 unit SQ TID [facility] Last Admin: 05/29/18 06:18 Dose: 5,000 unit Doxycycline Hyclate 100 mg/ (Dextrose) 100 mls @ 100 mls/hr IVPB BID [facility] Last Admin: 05/28/18 23:06 Dose: 100 mls/hr Losartan Potassium (Cozaar -) 25 mg PO DAILY [facility] Last Admin: 05/28/18 10:38 Dose: 25 mg Melatonin (Melatonin) 1 mg PO HS PRN PRN Reason: INSOMNIA Metoprolol Tartrate (Lopressor Injection -) 5 mg IVPUSH Q4H PRN PRN Reason: TACHYCARDIA > 110 Last Admin: 05/27/18 15:20 Dose: 5 mg Metoprolol Tartrate (Lopressor -) 12.5 mg PO BID [facility] Last Admin: 05/28/18 21:50 Dose: 12.5 mg Multivitamins/Minerals/Vitamin C (Tab-A-Vit -) 1 tab PO DAILY [facility] Last Admin: 05/28/18 10:39 Dose: 1 tab Nicotine (Nicoderm Patch -) 21 mg TD DAILY [facility] Last Admin: 05/28/18 10:39 Dose: 21 mg Pantoprazole Sodium (Protonix -) 40 mg PO DAILY [facility] Last Admin: 05/28/18 10:39 Dose: 40 mg General: awake, alert, mildly tachypneic at rest, NAD HEENT: PERRL, no JVD Pulm: bilateral course rhonchi, no wheeze CV: RRR Abd: SNTND Ext: WWP, +2 pulses, no edema Neuro: grossly intact Laboratory Results - last 24 hr 05/29/18 05/29/18 05/29/18 05:30 05:30 05:54 WBC 10.4 H RBC 3.53 L Hgb 11.0 L Hct 33.0 L MCV 93.5 MCH 31.2 MCHC 33.4 RDW 15.3 Plt Count 327 MPV 10.0 Sodium 135 L Potassium 4.2 Chloride 97 L Carbon Dioxide 30 Anion Gap 8 BUN 38 H Creatinine 1.1 Creat Clearance w eGFR > 60 POC Glucometer 124.93791 Random Glucose 128 H D Calcium 8.5 Phosphorus 4.0 Magnesium 2.0 D A/P Acute Hypoxic Respiratory Failure Pneumonia +Legionella Ag Acute Pulmonary Edema/LV Systolic Heart Failure Severe Mitral Regurgitation COPD CAD s/p CABG HTN Hyperipidemia - ABX - Continue lasix - monitor urine output, creatinine - inhaled bronchodilators - O2 to keep SpO2 >90% - NIPPV as needed to assist in work of breathing - O2 for sat 88% to >92 - replete lytes - VTE prophylaxis Dr Galloway
[2018-05-29] MEDS: NICOTINE 21 MG/24 HOURS TOPICAL PATCH TD SCH (15:02)
[2018-05-29] MEDS: ASPIRIN 81 MG CHEWABLE TABLETS PO SCH (15:02)
[2018-05-29] MEDS: MULTIVITAMINS (DAILY MVI) TABLET (FP) PO SCH (15:03)
--- NOTE | 2018-05-29 15:43 | PN ---
Progress Note, Physician History of Present Illness: Awake, alert Slightly tachypneic Denies chest pain Afebrile WBC 10k - Current Medication List Current Medications: Active Medications Albuterol/Ipratropium (Duoneb -) 1 amp NEB RTID [facility] Last Admin: 05/29/18 14:21 Dose: 1 amp Allopurinol (Zyloprim -) 300 mg PO DAILY [facility] Last Admin: 05/29/18 13:01 Dose: 300 mg Aspirin (Asa -) 81 mg PO DAILY [facility] Last Admin: 05/29/18 15:02 Dose: 81 mg Atorvastatin Calcium (Lipitor -) 10 mg PO HS [facility] Last Admin: 05/28/18 21:49 Dose: 10 mg Furosemide (Lasix -) 40 mg PO BID@0600,1400 [facility] Last Admin: 05/29/18 15:02 Dose: 40 mg Heparin Sodium (Porcine) (Heparin -) 5,000 unit SQ TID [facility] Last Admin: 05/29/18 15:05 Dose: 5,000 unit Doxycycline Hyclate 100 mg/ (Dextrose) 100 mls @ 100 mls/hr IVPB BID [facility] Last Admin: 05/29/18 13:00 Dose: 100 mls/hr Losartan Potassium (Cozaar -) 25 mg PO DAILY [facility] Last Admin: 05/29/18 13:01 Dose: 25 mg Melatonin (Melatonin) 1 mg PO HS PRN PRN Reason: INSOMNIA Metoprolol Tartrate (Lopressor Injection -) 5 mg IVPUSH Q4H PRN PRN Reason: TACHYCARDIA > 110 Last Admin: 05/27/18 15:20 Dose: 5 mg Metoprolol Tartrate (Lopressor -) 12.5 mg PO BID [facility] Last Admin: 05/29/18 13:04 Dose: 12.5 mg Multivitamins/Minerals/Vitamin C (Tab-A-Vit -) 1 tab PO DAILY [facility] Last Admin: 05/29/18 15:03 Dose: 1 tab Nicotine (Nicoderm Patch -) 21 mg TD DAILY [facility] Last Admin: 05/29/18 15:02 Dose: 21 mg Pantoprazole Sodium (Protonix -) 40 mg PO DAILY [facility] Last Admin: 05/29/18 13:04 Dose: 40 mg - Objective Vital Signs: Vital Signs Temperature 97.8 F 05/29/18 14:00 Pulse Rate 96 H 09/10/18 14:00 Respiratory Rate 16 05/29/18 14:00 Blood Pressure 98/68 05/29/18 14:00 O2 Sat by Pulse Oximetry (%) 100 05/28/18 21:00 Constitutional: Yes: Cachectic Eyes: Yes: Conjunctiva Clear Cardiovascular: Yes: Regular Rate and Rhythm, S1, S2 Respiratory: Yes: Diminished Gastrointestinal: Yes: Normal Bowel Sounds, Soft. No: Tenderness Edema: No Labs: CBC, BMP 05/29/18 05:30 05/29/18 05:30 INR, PTT INR 1.04 (0.83-1.09) 05/20/18 12:00 Assessment/Plan Legionella pneumonia sepsis secondary to pneumonia COPD Prolonged QT Continue doxycycline
[2018-05-29] MEDS ORDERED: ACETAMINOPHEN 325 MG TABLET (FP) ONE (19:50)
[2018-05-29] MEDS ORDERED: PT OWN MED DRAWER 7, Y5N ONE (21:28)
[2018-05-29] MEDS: ATORVASTATIN CA 10 MG TABLET (FP) PO SCH (21:47)
[2018-05-30] MEDS: FUROSEMIDE 40 MG TABLET (FP) PO SCH ×2 (05:21→15:10)
[2018-05-30] MEDS: HEPARIN NA (PORCINE) 5,000 UNITS/ML 1ML VIAL SQ SCH ×3 (05:21→22:07)
[2018-05-30 06:23] LABS: BASO % 0.4 % (0-2.0); EOS % 0.4 % (0-4.5); HEMATOCRIT 33.9 % (35.4-49); HEMOGLOBIN 11.2 GM/dL (11.7-16.9); LYMPH % 10.1 % (8-40); MCH 30.6 pg (25.7-33.7); MEAN CELL VOLUME 92.6 fl (80-96); MEAN PLT VOLUME 9.7 fl (7.5-11.1); MONO % 10.7 % (3.8-10.2); NEUT % 78.4 % (42.8-82.8); PLATELET COUNT 292 K/MM3 (134-434); RBC 3.66 M/mm3 (4.00-5.60); RDW 15.2 % (11.9-15.9); WHITE BLOOD COUNT 8.1 K/mm3 (4.0-10.0)
[2018-05-30 06:24] LABS: ANION GAP 9 MMOL/L (8-16); BLOOD UREA NITROGEN 31 mg/dL (7-18); CALCIUM 8.1 mg/dL (8.5-10.1); CHLORIDE 100 mmol/L (98-107); CO2 26 mmol/L (21-32); GLUCOSE,RANDOM 115 mg/dL (74-106); MAGNESIUM 1.9 mg/dL (1.8-2.4); PHOSPHOROUS 3.9 mg/dL (2.5-4.9); SODIUM 135 mmol/L (136-145)
[2018-05-30] MEDS ORDERED: MAGNESIUM OXIDE 400 MG TABLET (FP) PO ONE (06:42)
--- NOTE | 2018-05-30 07:27 | PN ---
Teaching Attending Note Name of Resident: Frantz Penny ATTENDING PHYSICIAN STATEMENT I saw and evaluated the patient. I reviewed the resident's note and discussed the case with the resident. I agree with the resident's findings and plan as documented with exceptions below. SUBJECTIVE: Patient seen and examined. Denies any chest pain, palpitations, dyspnea, dizziness or new concerns. OBJECTIVE: Vital Signs Period Temp Pulse Resp BP Sys/Reyes Pulse Ox Last 24 Hr 97.6 F-98.5 F 91-119 15-23 88-117/62-88 100-100 Intake & Output 05/27/18 05/28/18 05/29/18 05/30/18 23:59 23:59 23:59 23:59 Intake Total 650 650 570 120 Output Total 400 950 500 400 Balance 250 -300 70 -280 Weight 129 lb 6.4 oz 124 lb 11.2 oz 123 lb 3.2 oz General: sitting in bed in no acute distress Neck: soft, Supple, no JVD noted Chest: bibasilar rales, good air entry Abdomen: soft, NT, ND, positive bowel sounds Extremities: no edema Home Medications Medication Instructions Recorded Allopurinol [Zyloprim -] 300 mg PO DAILY 05/20/18 Carvedilol [Coreg -] 6.25 mg PO BID 05/20/18 Furosemide [Lasix -] 40 mg PO DAILY 05/20/18 Ibuprofen [Motrin -] 600 mg PO TID PRN 05/20/18 Multivit-Min/FA/Lycopen/Lutein 1 each PO DAILY 05/20/18 [Centrum Silver Tablet] Simvastatin [Zocor -] 20 mg PO HS 05/20/18 predniSONE [Deltasone -] 1 mg PO QID 05/20/18 Active Medications Acetaminophen (Tylenol -) 650 mg PO Q6H PRN PRN Reason: Fever Or Pain Albuterol/Ipratropium (Duoneb -) 1 amp NEB RTID [facility] Last Admin: 05/29/18 20:18 Dose: 1 amp Allopurinol (Zyloprim -) 300 mg PO DAILY [facility] Last Admin: 05/29/18 13:01 Dose: 300 mg Aspirin (Asa -) 81 mg PO DAILY [facility] Last Admin: 05/29/18 15:02 Dose: 81 mg Atorvastatin Calcium (Lipitor -) 10 mg PO [facility] Last Admin: 05/29/18 21:47 Dose: 10 mg Furosemide (Lasix -) 40 mg PO BID@0600,1400 [facility] Last Admin: 05/30/18 05:21 Dose: 40 mg Heparin Sodium (Porcine) (Heparin -) 5,000 unit SQ TID [facility] Last Admin: 05/30/18 05:21 Dose: 5,000 unit Doxycycline Hyclate 100 mg/ (Dextrose) 100 mls @ 100 mls/hr IVPB BID [facility] Last Admin: 05/29/18 21:46 Dose: 100 mls/hr Losartan Potassium (Cozaar -) 25 mg PO DAILY [facility] Last Admin: 05/29/18 13:01 Dose: 25 mg Melatonin (Melatonin) 1 mg PO HS PRN PRN Reason: INSOMNIA Metoprolol Tartrate (Lopressor Injection -) 5 mg IVPUSH Q4H PRN PRN Reason: TACHYCARDIA > 110 Last Admin: 05/27/18 15:20 Dose: 5 mg Metoprolol Tartrate (Lopressor -) 12.5 mg PO BID [facility] Last Admin: 05/29/18 21:47 Dose: 12.5 mg Multivitamins/Minerals/Vitamin C (Tab-A-Vit -) 1 tab PO DAILY [facility] Last Admin: 05/29/18 15:03 Dose: 1 tab Nicotine (Nicoderm Patch -) 21 mg TD DAILY [facility] Last Admin: 05/29/18 15:02 Dose: 21 mg Pantoprazole Sodium (Protonix -) 40 mg PO DAILY [facility] Last Admin: 05/29/18 13:04 Dose: 40 mg Laboratory Results - last 24 hr 05/29/18 05/30/18 05/30/18 05:30 05:30 05:30 WBC 10.4 H 8.1 RBC 3.53 L 3.66 L Hgb 11.0 L 11.2 L Hct 33.0 L 33.9 L MCV 93.5 92.6 MCH 31.2 30.6 MCHC 33.4 33.0 RDW 15.3 15.2 Plt Count 327 292 MPV 10.0 9.7 Absolute Neuts (auto) 6.3 Neutrophils % 78.4 Lymphocytes % 10.1 D Monocytes % 10.7 H Eosinophils % 0.4 D Basophils % 0.4 Nucleated RBC % 0 Sodium 135 L Potassium 4.0 Chloride 100 Carbon Dioxide 26 Anion Gap 9 BUN 31 H Creatinine 1.0 Creat Clearance w eGFR > 60 Random Glucose 115 H Calcium 8.1 L Phosphorus 3.9 Magnesium 1.9 Microbiology 05/20/18 12:00 Blood - Peripheral Venous Blood Culture - Final NO GROWTH AFTER 5 DAYS INCUBATION 05/20/18 12:00 Blood - Peripheral Venous Blood Culture - Final NO GROWTH AFTER 5 DAYS INCUBATION 05/22/18 19:00 Transtracheal Aspiration Legionella Culture - Preliminary 05/20/18 18:00 Urine - Urine Clean Catch Legionella Antigen - Final 05/20/18 18:00 Urine - Urine Clean Catch Streptococcus pneumoniae Antigen ( M - Final 05/20/18 18:00 Urine - Urine Clean Catch Urine Culture - Final NO GROWTH OBTAINED CXR 05/29 reviewed: atypical PNA vs congestion Myocardial perfusion test results reviewed ASSESSMENT AND PLAN: 67 yo M with PMHx of CAD s/p CABG (2002), CHF , active heavy smoker x35 years, COPD, HTN, HLD admitted with acute hypoxic respiratory failure. -Acute hypoxic respiratory failure -Acute multifocal Legionella PNA -Acute systolic heart failure exacerbation -Severe Systolic Dysfunction with EF 15-20%, r/o ischemic cardiomyopathy given abnormal stress test -Sepsis due to PNA -OLIMPIA, suspect form sepsis +/- CHF -Multifocal Atrial tachycardia -Hyponatremia, suspect hypervolumic/Legionella related -Hypokalemia -Hypomagnesemia -Asymptomatic hypotension, suspect partly from very poor EF -Nicotine dependence -Prolonged QTc -Continuous nicotine dependence -COPD, unclear if partly contributory to high oxygen requirements -CAD s/p CABG Plan: Doxycycline, antibiotic day 08/02. ID input noted. BIpap prn, taper oxygen as tolerated. ABnormal stress test, follow up with cardiology, likely transfer for cardiac cath. Continue ASA/statin/metoprolol/lasix as tolerated (s/p dobutamine/lasix drip initially). Replete lytes prn, interval EKG to monitor QTc. Nutrition consult. Allopurinol DVTPPX PT eval noted, will need ALPHONSO on d/c DIspo planning pending cardiology input. Likely transfer for cardiac cath. Plan discussed with patient in detail, all questions answered.
[2018-05-30] MEDS: ALBUTEROL SO4 2.5/IPRATROPIUM 0.5 INH SOL 3 ML VIAL.NEB. NEB SCH ×3 (07:40→21:07)
[2018-05-30] MEDS: PANTOPRAZOLE 40 MG TABLET (FP) PO SCH (09:28)
[2018-05-30] MEDS: ALLOPURINOL 100 MG TABLET (FP) PO SCH (09:28)
[2018-05-30] MEDS: MULTIVITAMINS (DAILY MVI) TABLET (FP) PO SCH (09:28)
[2018-05-30] MEDS: ASPIRIN 81 MG CHEWABLE TABLETS PO SCH (09:28)
[2018-05-30] MEDS: LOSARTAN POTASSIUM 25 MG TABLET PO SCH (09:28)
[2018-05-30] MEDS: METOPROLOL TARTRATE 25 MG TABLET (FP) PO SCH ×2 (09:28→22:07)
[2018-05-30] MEDS: NICOTINE 21 MG/24 HOURS TOPICAL PATCH TD SCH (09:28)
[2018-05-30] MEDS ORDERED: PT OWN MED DRAWER 7, Y5N ONE ×2 (10:14→22:05)
[2018-05-30] MEDS: DOXYCYCLINE INJECTION 100 MG in DEXTROSE 5%-WATER - 100 ML IVPB SCH ×2 (10:26→22:07)
[2018-05-30 11:00] VITALS: BMI 17.1
--- NOTE | 2018-05-30 11:38 | PN ---
Progress Note, Physician Chief Complaint: alert and orietned; no chest pain or dyspnea. History of Present Illness: Patient is a 67 black man with history of CAD s/p CABG (denies hx MT), etoh abuse (drinks 1/3 bottle of gin per day; last drink ?2 days ago), current tobacco abuse (and for many years at 1/2-1 ppd), HTN, HLD, here today complaining of shortness of breath for the past 4 days. Patient states that he has chest pain in both sides when he takes a deep breath. Patient states that he noticed his eyes were proptotic starting this morning. Denies history of thyroid problems. Last drink was yesterday. Daughter endorses tactile fever. Denies history of blood clots. Denies leg swelling. 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 - Current Medication List Current Medications: Active Medications Acetaminophen (Tylenol -) 650 mg PO Q6H PRN PRN Reason: Fever Or Pain Albuterol/Ipratropium (Duoneb -) 1 amp NEB RTID [facility] Last Admin: 05/30/18 07:40 Dose: 1 amp Allopurinol (Zyloprim -) 300 mg PO DAILY [facility] Last Admin: 05/30/18 09:28 Dose: 300 mg Aspirin (Asa -) 81 mg PO DAILY [facility] Last Admin: 05/30/18 09:28 Dose: 81 mg Atorvastatin Calcium (Lipitor -) 10 mg PO HS [facility] Last Admin: 05/29/18 21:47 Dose: 10 mg Furosemide (Lasix -) 40 mg PO BID@0600,1400 [facility] Last Admin: 05/30/18 05:21 Dose: 40 mg Heparin Sodium (Porcine) (Heparin -) 5,000 unit SQ TID [facility] Last Admin: 05/30/18 05:21 Dose: 5,000 unit Doxycycline Hyclate 100 mg/ (Dextrose) 100 mls @ 100 mls/hr IVPB BID [facility] Last Admin: 05/30/18 10:26 Dose: 100 mls/hr Losartan Potassium (Cozaar -) 25 mg PO DAILY [facility] Last Admin: 05/30/18 09:28 Dose: 25 mg Melatonin (Melatonin) 1 mg PO HS PRN PRN Reason: INSOMNIA Metoprolol Tartrate (Lopressor Injection -) 5 mg IVPUSH Q4H PRN PRN Reason: TACHYCARDIA > 110 Last Admin: 05/27/18 15:20 Dose: 5 mg Metoprolol Tartrate (Lopressor -) 12.5 mg PO BID [facility] Last Admin: 05/30/18 09:28 Dose: 12.5 mg Multivitamins/Minerals/Vitamin C (Tab-A-Vit -) 1 tab PO DAILY [facility] Last Admin: 05/30/18 09:28 Dose: 1 tab Nicotine (Nicoderm Patch -) 21 mg TD DAILY [facility] Last Admin: 05/30/18 09:28 Dose: 21 mg Pantoprazole Sodium (Protonix -) 40 mg PO DAILY [facility] Last Admin: 05/30/18 09:28 Dose: 40 mg - Objective Vital Signs: Vital Signs Temperature 98.2 F 05/30/18 06:00 Pulse Rate 99 H 05/30/18 08:00 Respiratory Rate 16 05/30/18 08:04 Blood Pressure 93/70 05/30/18 08:00 O2 Sat by Pulse Oximetry (%) 100 05/30/18 08:04 Constitutional: Yes: Calm Eyes: Yes: WNL HENT: Yes: WNL Neck: Yes: WNL Cardiovascular: Yes: S1, S2 Gastrointestinal: Yes: Soft ...Rectal Exam: Yes: Deferred Genitourinary: No: Anuria Musculoskeletal: Yes: Muscle Weakness Extremities: Yes: Cool Edema: No Peripheral Pulses WNL: Yes Integumentary: Yes: WNL Neurological: Yes: Alert, Oriented, Weakness Psychiatric: Yes: Alert, Oriented Labs: CBC, BMP 05/30/18 05:30 05/30/18 05:30 INR, PTT INR 1.04 (0.83-1.09) 05/20/18 12:00 Abnormal Lab Results 05/31/18 05/31/18 05:30 05:30 RBC 3.64 L Hgb 11.3 L Hct 33.9 L Monocytes % 11.4 H Sodium 134 L Chloride 97 L BUN 37 H Creatinine 1.5 H Random Glucose 136 H - ....Imaging Other: Image Reviewed (telemetry: no arrhythmias) Problem List - Problems (1) HTN (hypertension) Assessment/Plan: on metoprolol and losartan (HTN; systolic heart failure); myocardial ischemia). Code(s): I10 - ESSENTIAL (PRIMARY) HYPERTENSION (2) Hx of CABG Assessment/Plan: Pt says CABG was done in [place] in 2002. Code(s): Z95.1 - PRESENCE OF AORTOCORONARY BYPASS GRAFT (3) Hypoalbuminemia Code(s): E88.09 - OT DISORDERS OF PLASMA-PROTEIN METABOLISM, NEC (4) [place] cardiac risk >20% in next 10 years Assessment/Plan: LExiscan stress MIBI 05/29/2018: moderately large zone of moderately intense inferior ischemia; poor LVEF. Discussed importance of coronary angiogram with pt and his ; benefits vs risks were gone over in detail. They agree for him to have the procedure, which will be done at [facility] this week. Start clopidogrel. Continue statin. Avoid dehydration. Code(s): Z91.89 - OT PERSONAL RISK FACTORS, NOT ELSEWHERE CLASSIFIED (5) Nicotine addiction Assessment/Plan: pt agress to start nicotine patch. Code(s): F17.200 - NICOTINE DEPENDENCE, UNSPECIFIED, UNCOMPLICATED (6) Elevated LFTs Code(s): R94.5 - ABNORMAL RESULTS OF LIVER FUNCTION STUDIES (7) Acute respiratory distress Assessment/Plan: resolved Code(s): R06.03 - ACUTE RESPIRATORY DISTRESS (8) Acute on chronic systolic and diastolic heart failure, NYHA class 3 Assessment/Plan: Now on metoprolol and losartan. F/u BUN/Cr, electrolytes, Is and Os, daily weight. Poor LVEF; + stress MIBI. Pt for coronary angiogram. Code(s): I50.43 - ACUTE ON CHRONIC COMBINED SYSTOLIC AND DIASTOLIC HRT FAIL (9) Sepsis Assessment/Plan: On Vancomycin. F/u EKG (prolonged QT). Code(s): A41.9 - SEPSIS, UNSPECIFIED ORGANISM
--- NOTE | 2018-05-30 12:36 | PN ---
Progress Note (short form) - Note Progress Note: Breathing continues to slowly improve, now on 3 L NC O2. No CP. No acute events overnight. Intake & Output 05/27/18 05/28/18 05/29/18 05/30/18 23:59 23:59 23:59 23:59 Intake Total 650 650 570 120 Output Total 400 950 500 400 Balance 250 -300 70 -280 Weight 129 lb 6.4 oz 124 lb 11.2 oz 123 lb 3.2 oz Last Vital Signs Temp Pulse Resp BP Pulse Ox 98.2 F 99 H 16 93/70 100 05/30/18 06:00 05/30/18 08:00 05/30/18 08:04 05/30/18 08:00 05/30/18 08:04 Active Medications Acetaminophen (Tylenol -) 650 mg PO Q6H PRN PRN Reason: Fever Or Pain Albuterol/Ipratropium (Duoneb -) 1 amp NEB RTID [facility] Last Admin: 05/30/18 07:40 Dose: 1 amp Allopurinol (Zyloprim -) 300 mg PO DAILY [facility] Last Admin: 05/30/18 09:28 Dose: 300 mg Aspirin (Asa -) 81 mg PO DAILY [facility] Last Admin: 05/30/18 09:28 Dose: 81 mg Atorvastatin Calcium (Lipitor -) 10 mg PO HS [facility] Last Admin: 05/29/18 21:47 Dose: 10 mg Clopidogrel Bisulfate (Plavix -) 75 mg PO DAILY [facility] Furosemide (Lasix -) 40 mg PO BID@0600,1400 [facility] Last Admin: 05/30/18 05:21 Dose: 40 mg Heparin Sodium (Porcine) (Heparin -) 5,000 unit SQ TID [facility] Last Admin: 05/30/18 05:21 Dose: 5,000 unit Doxycycline Hyclate 100 mg/ (Dextrose) 100 mls @ 100 mls/hr IVPB BID [facility] Last Admin: 05/30/18 10:26 Dose: 100 mls/hr Losartan Potassium (Cozaar -) 25 mg PO DAILY [facility] Last Admin: 05/30/18 09:28 Dose: 25 mg Melatonin (Melatonin) 1 mg PO HS PRN PRN Reason: INSOMNIA Metoprolol Tartrate (Lopressor Injection -) 5 mg IVPUSH Q4H PRN PRN Reason: TACHYCARDIA > 110 Last Admin: 05/27/18 15:20 Dose: 5 mg Metoprolol Tartrate (Lopressor -) 12.5 mg PO BID [facility] Last Admin: 05/30/18 09:28 Dose: 12.5 mg Multivitamins/Minerals/Vitamin C (Tab-A-Vit -) 1 tab PO DAILY [facility] Last Admin: 05/30/18 09:28 Dose: 1 tab Nicotine (Nicoderm Patch -) 21 mg TD DAILY [facility] Last Admin: 05/30/18 09:28 Dose: 21 mg Pantoprazole Sodium (Protonix -) 40 mg PO DAILY [facility] Last Admin: 05/30/18 09:28 Dose: 40 mg General: awake, alert, NAD HEENT: PERRL, no JVD Pulm: bilateral course rhonchi, no wheeze CV: RRR Abd: SNTND Ext: WWP, +2 pulses, no edema Neuro: grossly intact Laboratory Results - last 24 hr 05/30/18 05/30/18 05:30 05:30 WBC 8.1 RBC 3.66 L Hgb 11.2 L Hct 33.9 L MCV 92.6 MCH 30.6 MCHC 33.0 RDW 15.2 Plt Count 292 MPV 9.7 Absolute Neuts (auto) 6.3 Neutrophils % 78.4 Lymphocytes % 10.1 D Monocytes % 10.7 H Eosinophils % 0.4 D Basophils % 0.4 Nucleated RBC % 0 Sodium 135 L Potassium 4.0 Chloride 100 Carbon Dioxide 26 Anion Gap 9 BUN 31 H Creatinine 1.0 Creat Clearance w eGFR > 60 Random Glucose 115 H Calcium 8.1 L Phosphorus 3.9 Magnesium 1.9 A/P Acute Hypoxic Respiratory Failure Pneumonia +Legionella Ag Acute Pulmonary Edema/LV Systolic Heart Failure Severe Mitral Regurgitation COPD CAD s/p CABG HTN Hyperipidemia - ABX - Lasix - monitor urine output, creatinine - inhaled bronchodilators - O2 to keep SpO2 >90% - O2 for sat 88% to 92% - VTE prophylaxis Dr Galloway
--- NOTE | 2018-05-30 13:01 | PN ---
Physical Exam: SUBJECTIVE: Patient seen and examined this AM with no complaints. No events noted overnight OBJECTIVE: Vital Signs Period Temp Pulse Resp BP Sys/Reyes Pulse Ox Last 24 Hr 97.8 F-98.5 F 91-119 15-23 88-117/62-88 100-100 GENERAL: A&O, no acute distress HEAD: Normocephalic, atraumatic. EYES: PERRL, discoloration of sclera (beige colored), proptosis noted EARS, NOSE, THROAT: oropharynx clear without exudates. Moist mucous membranes. NECK: supple without lymphadenopathy LUNGS: Rales at the right base HEART: Tachycardic, regular rythm, normal S1 and S2 without murmur ABDOMEN: Soft, nontender to palpation, normoactive bowel sounds MUSCULOSKELETAL: No bony deformities or tenderness. EXTREMITIES: 2+ pulses, warm, well-perfused. No peripheral edema. NEUROLOGICAL: Cranial nerves II-XII grossly intact. Normal speech. 5/5 strength in all extremities. PSYCHIATRIC: Cooperative. Good eye contact. Appropriate mood and affect. SKIN: Warm, dry, no rashes or lesions noted Laboratory Results - last 24 hr 05/30/18 05/30/18 05:30 05:30 WBC 8.1 RBC 3.66 L Hgb 11.2 L Hct 33.9 L MCV 92.6 MCH 30.6 MCHC 33.0 RDW 15.2 Plt Count 292 MPV 9.7 Absolute Neuts (auto) 6.3 Neutrophils % 78.4 Lymphocytes % 10.1 D Monocytes % 10.7 H Eosinophils % 0.4 D Basophils % 0.4 Nucleated RBC % 0 Sodium 135 L Potassium 4.0 Chloride 100 Carbon Dioxide 26 Anion Gap 9 BUN 31 H Creatinine 1.0 Creat Clearance w eGFR > 60 Random Glucose 115 H Calcium 8.1 L Phosphorus 3.9 Magnesium 1.9 Active Medications Generic Name Dose Route Start Last Admin Trade Name Freq PRN Reason Stop Dose Admin Acetaminophen 650 mg 05/29/18 19:49 Tylenol - PO Q6H PRN Fever Or Pain Albuterol/Ipratropium 1 amp 05/26/18 14:00 05/30/18 07:40 Duoneb - NEB 1 amp RTID [facility] Administration Allopurinol 300 mg 05/23/18 16:00 05/30/18 09:28 Zyloprim - PO 300 mg DAILY [facility] Administration Aspirin 81 mg 05/24/18 10:00 05/30/18 09:28 Asa - PO 81 mg DAILY [facility] Administration Atorvastatin Calcium 10 mg 05/23/18 22:00 05/29/18 21:47 Lipitor - PO 10 mg HS [facility] Administration Clopidogrel Bisulfate 75 mg 05/30/18 11:45 Plavix - PO DAILY [facility] Furosemide 40 mg 05/28/18 14:00 05/30/18 05:21 Lasix - PO 40 mg BID@0600,1400 [facility] Administration Heparin Sodium (Porcine) 5,000 unit 05/23/18 22:00 05/30/18 05:21 Heparin - SQ 5,000 unit TID [facility] Administration Doxycycline Hyclate 100 mg/ 100 mls @ 100 mls/hr 05/25/18 10:00 05/30/18 10: 26 Dextrose IVPB 100 mls/hr BID [facility] Administration Losartan Potassium 25 mg 05/26/18 10:00 05/30/18 09:28 Cozaar - PO 25 mg DAILY [facility] Administration Melatonin 1 mg 05/23/18 18:03 Melatonin PO HS PRN INSOMNIA Metoprolol Tartrate 5 mg 05/26/18 09:17 05/27/18 15:20 Lopressor Injection - IVPUSH 5 mg Q4H PRN Administration TACHYCARDIA > 110 Metoprolol Tartrate 12.5 mg 05/27/18 10:00 05/30/18 09:28 Lopressor - PO 12.5 mg BID [facility] Administration Multivitamins/Minerals/Vitamin C 1 tab 05/26/18 10:00 05/30/18 09:28 Tab-A-Vit - PO 1 tab DAILY [facility] Administration Nicotine 21 mg 05/24/18 10:00 05/30/18 09:28 Nicoderm Patch - TD 21 mg DAILY [facility] Administration Pantoprazole Sodium 40 mg 05/24/18 10:00 05/30/18 09:28 Protonix - PO 40 mg DAILY [facility] Administration ASSESSMENT/PLAN: 67 yo male with PMH CAD (s/p CABG), CHF, COPD, HTN, HLD, EtOH abuse admitted with SOB and weakness Acute Hypoxic Respiratory Failure with COPD history -Respiratory status improving, no longer requiring bilevel ventilation during the day -Pt is saturating well on 3L NC -Duonebs Q4 [facility] -Albuterol Neb Q2 PRN Systolic Heart Failure -Echo noted: Severe LV systolic dysfunction, EF 15-20% -Cardiology Consult Appreciated Pt to be transferred this week to [facility] for Cath -Lasix switched to 40 mg PO BID -Nuclear stress test positive for reversible defect from base to apex Pneumonia -CXR, congestive changes improving -Urine legionella presumed positive, awaiting final tracheal antigen result -Pt is afebrile -Pt with prolonged QTc on ECG -Levaquin 500 mg IV Daily 5 days -Pt placed on Doxycycline 100 mg IV BID as per ID due to QTc, Day 6, Day 11 of Abx total CAD -With no acute signs of ischemia -ASA HTN -Lopressor 12.5 mg PO BID, can be converted to Toprol XL prior to discharge -Losartan 25 mg PO Daily -Lopressor 5mg Q4 PRN HTN if HR >110, Has not required in last 48 hrs HLD -Lipitor 10 mg PO HS Prolonged QTc -pt no longer receiving QT prolonging abx -Pt monitored on telemetry bed with no overnight events noted Tobacco use -Nicoderm patch daily DVT Prophylaxis -Heparin 5000 units SQ TID -Early ambulation, OOB to chair FEN -Fluids: none -Electrolytes: Mg 1.9, BMP in AM -Nutrition: Chol/Fat/Sodium Restricted diet Disposition Continue to monitor on Telemetry Visit type - Emergency Visit Emergency Visit: Yes ED Registration Date: 05/20/18 Care time: The patient presented to the Emergency Department on the above date and was hospitalized for further evaluation of their emergent condition. - New Patient This patient is new to me today: No - Critical Care Critical Care patient: No
[2018-05-30] MEDS: CLOPIDOGREL BISULFATE 75 MG TABLET (FP) PO SCH (15:09)
[2018-05-30] MEDS: ACETAMINOPHEN 325 MG TABLET (FP) PO PRN (18:24)
[2018-05-30] MEDS: ATORVASTATIN CA 10 MG TABLET (FP) PO SCH (22:07)
[2018-05-31 05:45] LABS: BASO % 0.5 % (0-2.0); EOS % 0.3 % (0-4.5); HEMATOCRIT 33.9 % (35.4-49); HEMOGLOBIN 11.3 GM/dL (11.7-16.9); MCH 30.9 pg (25.7-33.7); MCHC 33.2 g/dl (32.0-35.9); MEAN CELL VOLUME 93.1 fl (80-96); MEAN PLT VOLUME 9.7 fl (7.5-11.1); MONO % 11.4 % (3.8-10.2); NEUT % 75.8 % (42.8-82.8); PLATELET COUNT 285 K/MM3 (134-434); RBC 3.64 M/mm3 (4.00-5.60); RDW 14.9 % (11.9-15.9); WHITE BLOOD COUNT 8.1 K/mm3 (4.0-10.0)
[2018-05-31 06:07] LABS: ANION GAP 9 MMOL/L (8-16); BLOOD UREA NITROGEN 37 mg/dL (7-18); CALCIUM 8.6 mg/dL (8.5-10.1); CHLORIDE 97 mmol/L (98-107); CO2 28 mmol/L (21-32); CREATININE 1.5 mg/dL (0.7-1.3); GLUCOSE,RANDOM 136 mg/dL (74-106); MAGNESIUM 1.8 mg/dL (1.8-2.4); PHOSPHOROUS 4.6 mg/dL (2.5-4.9); POTASSIUM 4.3 mmol/L (3.5-5.1); SODIUM 134 mmol/L (136-145)
[2018-05-31] MEDS ORDERED: MAGNESIUM OXIDE 400 MG TABLET (FP) PO ONE (06:30)
[2018-05-31] MEDS: HEPARIN NA (PORCINE) 5,000 UNITS/ML 1ML VIAL SQ SCH ×3 (06:31→21:01)
[2018-05-31] MEDS: FUROSEMIDE 40 MG TABLET (FP) PO SCH (06:31)
--- NOTE | 2018-05-31 07:50 | PN ---
Teaching Attending Note Name of Resident: Frantz Penny ATTENDING PHYSICIAN STATEMENT I saw and evaluated the patient. I reviewed the resident's note and discussed the case with the resident. I agree with the resident's findings and plan as documented with exceptions below. SUBJECTIVE: patient seen and examined. No chest pain, palpitations, dyspnea, dizziness, abdominal or urinary symptoms. taking PO well. Had some abdominal pain earlier, that resolved after having a BM this morning. OBJECTIVE: Vital Signs Period Temp Pulse Resp BP Sys/Reyes Pulse Ox Last 24 Hr 98.3 F-98.6 F 98-118 16-25 81-105/49-85 100-100 Intake & Output 05/28/18 05/29/18 05/30/18 05/31/18 23:59 23:59 23:59 23:59 Intake Total 650 570 320 Output Total 819 541 3146 200 Balance -300 70 -1180 -200 Weight 129 lb 6.4 oz 124 lb 11.2 oz 123 lb 3.2 oz 128 lb 6 oz General: sitting in bed in no acute distress chest: bibasilar rales, good air entry, no wheezing Abdomen: soft, NT throughout, ND, positive bowel sounds Extremities: no edema Active Medications Acetaminophen (Tylenol -) 650 mg PO Q6H PRN PRN Reason: Fever Or Pain Last Admin: 05/30/18 18:24 Dose: 650 mg Albuterol/Ipratropium (Duoneb -) 1 amp NEB RTID [facility] Last Admin: 05/30/18 21:07 Dose: 1 amp Allopurinol (Zyloprim -) 300 mg PO DAILY [facility] Last Admin: 05/30/18 09:28 Dose: 300 mg Aspirin (Asa -) 81 mg PO DAILY [facility] Last Admin: 05/30/18 09:28 Dose: 81 mg Atorvastatin Calcium (Lipitor -) 10 mg PO HS [facility] Last Admin: 05/30/18 22:07 Dose: 10 mg Clopidogrel Bisulfate (Plavix -) 75 mg PO DAILY [facility] Last Admin: 05/30/18 15:09 Dose: 75 mg Furosemide (Lasix -) 40 mg PO DAILY [facility] Heparin Sodium (Porcine) (Heparin -) 5,000 unit SQ TID [facility] Last Admin: 05/31/18 06:31 Dose: 5,000 unit Doxycycline Hyclate 100 mg/ (Dextrose) 100 mls @ 100 mls/hr IVPB BID [facility] Last Admin: 05/30/18 22:07 Dose: 100 mls/hr Losartan Potassium (Cozaar -) 25 mg PO DAILY [facility] Last Admin: 05/30/18 09:28 Dose: 25 mg Melatonin (Melatonin) 1 mg PO HS PRN PRN Reason: INSOMNIA Metoprolol Tartrate (Lopressor Injection -) 5 mg IVPUSH Q4H PRN PRN Reason: TACHYCARDIA > 110 Last Admin: 05/27/18 15:20 Dose: 5 mg Metoprolol Tartrate (Lopressor -) 12.5 mg PO BID [facility] Last Admin: 05/30/18 22:07 Dose: Not Given Multivitamins/Minerals/Vitamin C (Tab-A-Vit -) 1 tab PO DAILY [facility] Last Admin: 05/30/18 09:28 Dose: 1 tab Nicotine (Nicoderm Patch -) 21 mg TD DAILY [facility] Last Admin: 05/30/18 09:28 Dose: 21 mg Pantoprazole Sodium (Protonix -) 40 mg PO DAILY [facility] Last Admin: 05/30/18 09:28 Dose: 40 mg Laboratory Results - last 24 hr 05/31/18 05/31/18 05:30 05:30 WBC 8.1 RBC 3.64 L Hgb 11.3 L Hct 33.9 L MCV 93.1 MCH 30.9 MCHC 33.2 RDW 14.9 Plt Count 285 MPV 9.7 Absolute Neuts (auto) 6.1 Neutrophils % 75.8 Lymphocytes % 12.0 Monocytes % 11.4 H Eosinophils % 0.3 Basophils % 0.5 Nucleated RBC % 0 Sodium 134 L Potassium 4.3 Chloride 97 L Carbon Dioxide 28 Anion Gap 9 BUN 37 H Creatinine 1.5 H Creat Clearance w eGFR 46.54 Random Glucose 136 H Calcium 8.6 Phosphorus 4.6 Magnesium 1.8 ASSESSMENT AND PLAN: 67 yo M with PMHx of CAD s/p CABG (2002), CHF , active heavy smoker x35 years, COPD, HTN, HLD admitted with acute hypoxic respiratory failure. -Acute hypoxic respiratory failure -Acute multifocal Legionella PNA -Acute systolic heart failure exacerbation -Severe Systolic Dysfunction with EF 15-20%, r/o ischemic cardiomyopathy given abnormal stress test -Sepsis due to PNA -OLIMPIA, suspect form sepsis +/- CHF -Multifocal Atrial tachycardia -Hyponatremia, suspect hypervolumic/Legionella related -Hypokalemia -Hypomagnesemia -Asymptomatic hypotension, suspect partly from very poor EF -Nicotine dependence -Prolonged QTc -Continuous nicotine dependence -COPD, unclear if partly contributory to high oxygen requirements -CAD s/p CABG Plan: Cr rising, hold ARB and lasix today. discussed with Dr. Marie. Strict I/ Os. Doxycycline, antibiotic day 09/01. ID input noted. Bipap prn, taper oxygen as tolerated. Abnormal stress test, plan for transfer to [facility] over next 24 hours for cardiac cath. Continue ASA/statin/metoprolol/lasix as tolerated (s/p dobutamine/lasix drip initially). Plavix added. Replete lytes prn, interval EKG to monitor QTc. Nutrition consult. Allopurinol DVTPPX PT eval noted, will need ALPHONSO on d/c DIspo planning to [facility] when bed available, per cardiology. Plan discussed with patient in detail, all questions answered.
[2018-05-31] MEDS: ALBUTEROL SO4 2.5/IPRATROPIUM 0.5 INH SOL 3 ML VIAL.NEB. NEB SCH ×3 (08:00→21:21)
[2018-05-31] MEDS ORDERED: PT OWN MED DRAWER 7, Y5N ONE ×2 (08:16→10:25)
[2018-05-31] MEDS: ACETAMINOPHEN 325 MG TABLET (FP) PO PRN (08:17)
[2018-05-31] MEDS: METOPROLOL TARTRATE 5 MG/5 ML VIAL IVPUSH PRN (08:24)
[2018-05-31] MEDS: METOPROLOL TARTRATE 25 MG TABLET (FP) PO SCH ×2 (09:54→21:01)
[2018-05-31] MEDS: ASPIRIN 81 MG CHEWABLE TABLETS PO SCH (09:54)
[2018-05-31] MEDS: ALLOPURINOL 100 MG TABLET (FP) PO SCH (09:55)
[2018-05-31] MEDS: CLOPIDOGREL BISULFATE 75 MG TABLET (FP) PO SCH (09:55)
[2018-05-31] MEDS: PANTOPRAZOLE 40 MG TABLET (FP) PO SCH (09:55)
[2018-05-31] MEDS: MULTIVITAMINS (DAILY MVI) TABLET (FP) PO SCH (09:56)
[2018-05-31] MEDS ORDERED: FUROSEMIDE 40 MG TABLET (FP) PO SCH (10:00)
[2018-05-31] MEDS: DOXYCYCLINE INJECTION 100 MG in DEXTROSE 5%-WATER - 100 ML IVPB SCH ×2 (10:28→21:01)
--- NOTE | 2018-05-31 11:35 | PN ---
Progress Note, Physician History of Present Illness: Patient is a 67 black man with history of CAD s/p CABG (denies hx [place]), etoh abuse (drinks 1/3 bottle of gin per day; last drink ?2 days ago), current tobacco abuse (and for many years at 1/2-1 ppd), HTN, HLD, here today complaining of shortness of breath for the past 4 days. Patient states that he has chest pain in both sides when he takes a deep breath. Patient states that he noticed his eyes were proptotic starting this morning. Denies history of thyroid problems. Last drink was yesterday. Daughter endorses tactile fever. Denies history of blood clots. Denies leg swelling. - Current Medication List Current Medications: Active Medications Acetaminophen (Tylenol -) 650 mg PO Q6H PRN PRN Reason: Fever Or Pain Last Admin: 05/31/18 08:17 Dose: 650 mg Albuterol/Ipratropium (Duoneb -) 1 amp NEB RTID [facility] Last Admin: 05/31/18 08:00 Dose: 1 amp Allopurinol (Zyloprim -) 300 mg PO DAILY [facility] Last Admin: 05/31/18 09:55 Dose: 300 mg Aspirin (Asa -) 81 mg PO DAILY [facility] Last Admin: 05/31/18 09:54 Dose: 81 mg Atorvastatin Calcium (Lipitor -) 10 mg PO HS [facility] Last Admin: 05/30/18 22:07 Dose: 10 mg Clopidogrel Bisulfate (Plavix -) 75 mg PO DAILY [facility] Last Admin: 05/31/18 09:55 Dose: 75 mg Furosemide (Lasix -) 40 mg PO DAILY [facility] Last Admin: 05/31/18 09:54 Dose: 40 mg Heparin Sodium (Porcine) (Heparin -) 5,000 unit SQ TID [facility] Last Admin: 05/31/18 06:31 Dose: 5,000 unit Doxycycline Hyclate 100 mg/ (Dextrose) 100 mls @ 100 mls/hr IVPB BID [facility] Last Admin: 05/31/18 10:28 Dose: 100 mls/hr Losartan Potassium (Cozaar -) 25 mg PO DAILY [facility] Last Admin: 05/30/18 09:28 Dose: 25 mg Melatonin (Melatonin) 1 mg PO HS PRN PRN Reason: INSOMNIA Metoprolol Tartrate (Lopressor Injection -) 5 mg IVPUSH Q4H PRN PRN Reason: TACHYCARDIA > 110 Last Admin: 05/31/18 08:24 Dose: 5 mg Metoprolol Tartrate (Lopressor -) 12.5 mg PO BID [facility] Last Admin: 05/31/18 09:54 Dose: 12.5 mg Multivitamins/Minerals/Vitamin C (Tab-A-Vit -) 1 tab PO DAILY [facility] Last Admin: 05/31/18 09:56 Dose: 1 tab Nicotine (Nicoderm Patch -) 21 mg TD DAILY [facility] Last Admin: 05/30/18 09:28 Dose: 21 mg Pantoprazole Sodium (Protonix -) 40 mg PO DAILY [facility] Last Admin: 05/31/18 09:55 Dose: 40 mg - Objective Vital Signs: Vital Signs Temperature 98.6 F 05/31/18 01:00 Pulse Rate 92 H 05/31/18 10:00 Respiratory Rate 22 05/31/18 10:00 Blood Pressure 88/64 05/31/18 10:00 O2 Sat by Pulse Oximetry (%) 100 05/31/18 08:30 Eyes: Yes: WNL, Conjunctiva Clear, EOM Intact HENT: Yes: WNL, Atraumatic, Normocephalic Neck: Yes: WNL, Supple, Trachea Midline Cardiovascular: Yes: WNL, Regular Rate and Rhythm Respiratory: Yes: WNL, Regular, CTA Bilaterally Gastrointestinal: Yes: WNL, Normal Bowel Sounds Genitourinary: Yes: WNL Musculoskeletal: Yes: WNL Extremities: Yes: WNL Edema: No Integumentary: Yes: WNL Neurological: Yes: WNL, Alert, Oriented ...Motor Strength: WNL Psychiatric: Yes: WNL Labs: CBC, BMP 05/31/18 05:30 05/31/18 05:30 INR, PTT INR 1.04 (0.83-1.09) 05/20/18 12:00 Assessment/Plan - Problems (1) HTN (hypertension) Assessment/Plan: on metoprolol and losartan (HTN; systolic heart failure); myocardial ischemia). Code(s): I10 - ESSENTIAL (PRIMARY) HYPERTENSION (2) Hx of CABG Assessment/Plan: Pt says CABG was done in [place] in 2002. Code(s): Z95.1 - PRESENCE OF AORTOCORONARY BYPASS GRAFT (3) Hypoalbuminemia Code(s): E88.09 - OTH DISORDERS OF PLASMA-PROTEIN METABOLISM, NEC (4) [place] cardiac risk >20% in next 10 years Assessment/Plan: LExiscan stress MIBI 05/29/2018: moderately large zone of moderately intense inferior ischemia; poor LVEF. Discussed importance of coronary angiogram with pt and his ; benefits vs risks were gone over in detail. They agree for him to have the procedure, which [facility] [place] [facility]. Start clopidogrel. Continue statin. Avoid dehydration. Will d/c lasix f/u bun cr Code(s): Z91.89 - OT PERSONAL RISK FACTORS, NOT ELSEWHERE CLASSIFIED (5) Nicotine addiction Assessment/Plan: pt agress to start nicotine patch. Code(s): F17.200 - NICOTINE DEPENDENCE, UNSPECIFIED, UNCOMPLICATED (6) Elevated LFTs Code(s): R94.5 - ABNORMAL RESULTS OF LIVER FUNCTION STUDIES (7) Acute respiratory distress Assessment/Plan: resolved Code(s): R06.03 - ACUTE RESPIRATORY DISTRESS (8) Acute on chronic systolic and diastolic heart failure, NYHA class 3 Assessment/Plan: Now on metoprolol and losartan. F/u BUN/Cr, electrolytes, Is and Os, daily weight. Poor LVEF; + stress MIBI. Pt for coronary angiogram. Code(s): I50.43 - ACUTE ON CHRONIC COMBINED SYSTOLIC AND DIASTOLIC HRT FAIL (9) Sepsis Assessment/Plan: On Vancomycin. F/u EKG (prolonged QT). Code(s): A41.9 - SEPSIS, UNSPECIFIED ORGANISM cc time spent 36 min
--- NOTE | 2018-05-31 11:36 | PN ---
Physical Exam: SUBJECTIVE: Patient seen and examined this AM. He has no complaints other than some abdominal prajapati which he states is normal sensation when he has to have a bowel movement. This pain resolved upon bowel movement. Discussed with pt the option of being transferred to [facility] for cath which he states he has agreed to and adds that his daughter has worked there for a long time. OBJECTIVE: Vital Signs Period Temp Pulse Resp BP Sys/Reyes Pulse Ox Last 24 Hr 98.3 F-98.6 F 92-120 17-26 81-105/49-85 100-100 GENERAL: A&O, no acute distress HEAD: Normocephalic, atraumatic. EYES: PERRL, discoloration of sclera (beige colored), proptosis noted EARS, NOSE, THROAT: oropharynx clear without exudates. Moist mucous membranes. NECK: supple without lymphadenopathy LUNGS: Bibasilar rales HEART: Tachycardic, regular rythm, normal S1 and S2 without murmur ABDOMEN: Soft, nontender to palpation, normoactive bowel sounds MUSCULOSKELETAL: No bony deformities or tenderness. EXTREMITIES: 2+ pulses, warm, well-perfused. No peripheral edema. NEUROLOGICAL: Cranial nerves II-XII grossly intact. Normal speech. 5/5 strength in all extremities. PSYCHIATRIC: Cooperative. Good eye contact. Appropriate mood and affect. SKIN: Warm, dry, no rashes or lesions noted Laboratory Results - last 24 hr 05/31/18 05/31/18 05:30 05:30 WBC 8.1 RBC 3.64 L Hgb 11.3 L Hct 33.9 L MCV 93.1 MCH 30.9 MCHC 33.2 RDW 14.9 Plt Count 285 MPV 9.7 Absolute Neuts (auto) 6.1 Neutrophils % 75.8 Lymphocytes % 12.0 Monocytes % 11.4 H Eosinophils % 0.3 Basophils % 0.5 Nucleated RBC % 0 Sodium 134 L Potassium 4.3 Chloride 97 L Carbon Dioxide 28 Anion Gap 9 BUN 37 H Creatinine 1.5 H Creat Clearance w eGFR 46.54 Random Glucose 136 H Calcium 8.6 Phosphorus 4.6 Magnesium 1.8 Active Medications Generic Name Dose Route Start Last Admin Trade Name Freq PRN Reason Stop Dose Admin Acetaminophen 650 mg 05/29/18 19:49 05/31/18 08:17 Tylenol - PO 650 mg Q6H PRN Administration Fever Or Pain Albuterol/Ipratropium 1 amp 05/26/18 14:00 05/31/18 08:00 Duoneb - NEB 1 amp RTID [facility] Administration Allopurinol 300 mg 05/23/18 16:00 05/31/18 09:55 Zyloprim - PO 300 mg DAILY [facility] Administration Aspirin 81 mg 05/24/18 10:00 05/31/18 09:54 Asa - PO 81 mg DAILY [facility] Administration Atorvastatin Calcium 10 mg 05/23/18 22:00 05/30/18 22:07 Lipitor - PO 10 mg HS [facility] Administration Clopidogrel Bisulfate 75 mg 05/30/18 11:45 05/31/18 09:55 Plavix - PO 75 mg DAILY [facility] Administration Furosemide 40 mg 05/31/18 10:00 05/31/18 09:54 Lasix - PO 40 mg DAILY [facility] Administration Heparin Sodium (Porcine) 5,000 unit 05/23/18 22:00 05/31/18 06:31 Heparin - SQ 5,000 unit TID [facility] Administration Doxycycline Hyclate 100 mg/ 100 mls @ 100 mls/hr 05/25/18 10:00 05/31/18 10: 28 Dextrose IVPB 100 mls/hr BID [facility] Administration Losartan Potassium 25 mg 05/26/18 10:00 05/30/18 09:28 Cozaar - PO 25 mg DAILY [facility] Administration Melatonin 1 mg 05/23/18 18:03 Melatonin PO HS PRN INSOMNIA Metoprolol Tartrate 5 mg 05/26/18 09:17 05/31/18 08:24 Lopressor Injection - IVPUSH 5 mg Q4H PRN Administration TACHYCARDIA > 110 Metoprolol Tartrate 12.5 mg 05/27/18 10:00 05/31/18 09:54 Lopressor - PO 12.5 mg BID [facility] Administration Multivitamins/Minerals/Vitamin C 1 tab 05/26/18 10:00 05/31/18 09:56 Tab-A-Vit - PO 1 tab DAILY [facility] Administration Nicotine 21 mg 05/24/18 10:00 05/30/18 09:28 Nicoderm Patch - TD 21 mg DAILY [facility] Administration Pantoprazole Sodium 40 mg 05/24/18 10:00 05/31/18 09:55 Protonix - PO 40 mg DAILY [facility] Administration ASSESSMENT/PLAN: 67 yo male with PMH CAD (s/p CABG), CHF, COPD, HTN, HLD, EtOH abuse admitted with SOB and weakness Acute Hypoxic Respiratory Failure with COPD history, likely secondary to pneumonia as below -Respiratory status improving, no longer requiring bilevel ventilation during the day -Pt is saturating well on 3L NC -Duonebs Q4 ELLIE -Albuterol Neb Q2 PRN Systolic Heart Failure -Echo noted: Severe LV systolic dysfunction, EF 15-20% -Cardiology Consult Appreciated Pt to be transferred this week to [facility] for Cath -Lasix switched to 40 mg PO BID -Nuclear stress test positive for reversible defect from base to apex, for transfer as above Pneumonia -CXR, congestive changes improved -Urine legionella presumed positive, awaiting final tracheal antigen result -Pt is afebrile with white count resolved -Levaquin 500 mg IV Daily 5 days -Pt placed on Doxycycline 100 mg IV BID as per ID due to QTc, Day 7, Day 12 of Abx total CAD -With no acute signs of ischemia -ASA HTN -Lopressor 12.5 mg PO BID, can be converted to Toprol XL prior to discharge -Losartan 25 mg PO Daily -Lopressor 5mg Q4 PRN HTN if HR >110, required once this morning HLD -Lipitor 10 mg PO HS Prolonged QTc -pt no longer receiving QT prolonging abx -Pt monitored on telemetry bed with no overnight events noted Tobacco use -Nicoderm patch daily DVT Prophylaxis -Heparin 5000 units SQ TID -Early ambulation, OOB to chair FEN -Fluids: none -Electrolytes: Mg 2.0, BMP in AM -Nutrition: Chol/Fat/Sodium Restricted diet Disposition Continue to monitor on Telemetry, for transfer to [facility] most likely tomorrow Visit type - Emergency Visit Emergency Visit: Yes ED Registration Date: 05/20/18 Care time: The patient presented to the Emergency Department on the above date and was hospitalized for further evaluation of their emergent condition. - New Patient This patient is new to me today: No - Critical Care Critical Care patient: No
--- NOTE | 2018-05-31 11:47 | EKG ---
Test Reason : Blood Pressure : / mmHG Vent. Rate : 094 BPM Atrial Rate : 094 BPM P-R Int : 160 ms QRS Dur : 086 ms QT Int : 394 ms P-R-T Axes : -58 -25 131 degrees QTc Int : 492 ms UNUSUAL P AXIS, POSSIBLE ECTOPIC ATRIAL RHYTHM PROLONGED QT ABNORMAL ECG WHEN COMPARED WITH ECG OF 25-MAY-2018 08:32, ECTOPIC ATRIAL RHYTHM HAS REPLACED SINUS RHYTHM QRS AXIS SHIFTED LEFT ST NO LONGER ELEVATED IN INFERIOR LEADS T WAVE INVERSION MORE EVIDENT IN LATERAL LEADS Confirmed by RUPERT LOPES, RASHAD ([id number]) on 05/31/2018 11:47:41 AM Referred By: CELY HARDY Confirmed By:RASHAD EMERY MD
[2018-05-31] MEDS: NICOTINE 21 MG/24 HOURS TOPICAL PATCH TD SCH (12:49)
--- NOTE | 2018-05-31 13:12 | PN ---
Progress Note (short form) - Note Progress Note: PULMONARY States breathing continues to improve. Denies chest pain. Vital Signs Period Temp Pulse Resp BP Sys/Reyes Pulse Ox Last 24 Hr 98.3 F-98.6 F 92-120 17-26 81-105/49-85 100-100 Intake & Output 05/28/18 05/29/18 05/30/18 05/31/18 23:59 23:59 23:59 23:59 Intake Total 650 570 320 Output Total 733 898 3426 400 Balance -300 70 -1180 -400 Weight 58.695 kg 56.563 kg 55.883 kg 58.23 kg Gen: less tachypneic Heart: RRR Lung: bibasilar rales Abd: soft, nontender Ext: no edema CBC, BMP 05/31/18 05:30 05/31/18 05:30 Active Medications Acetaminophen (Tylenol -) 650 mg PO Q6H PRN PRN Reason: Fever Or Pain Last Admin: 05/31/18 08:17 Dose: 650 mg Albuterol/Ipratropium (Duoneb -) 1 amp NEB RTID [facility] Last Admin: 05/31/18 08:00 Dose: 1 amp Allopurinol (Zyloprim -) 300 mg PO DAILY [facility] Last Admin: 05/31/18 09:55 Dose: 300 mg Aspirin (Asa -) 81 mg PO DAILY [facility] Last Admin: 05/31/18 09:54 Dose: 81 mg Atorvastatin Calcium (Lipitor -) 10 mg PO HS [facility] Last Admin: 05/30/18 22:07 Dose: 10 mg Clopidogrel Bisulfate (Plavix -) 75 mg PO DAILY [facility] Last Admin: 05/31/18 09:55 Dose: 75 mg Furosemide (Lasix -) 40 mg PO DAILY [facility] Last Admin: 05/31/18 09:54 Dose: 40 mg Heparin Sodium (Porcine) (Heparin -) 5,000 unit SQ TID [facility] Last Admin: 05/31/18 13:08 Dose: 5,000 unit Doxycycline Hyclate 100 mg/ (Dextrose) 100 mls @ 100 mls/hr IVPB BID [facility] Last Admin: 05/31/18 10:28 Dose: 100 mls/hr Losartan Potassium (Cozaar -) 25 mg PO DAILY [facility] Last Admin: 05/30/18 09:28 Dose: 25 mg Melatonin (Melatonin) 1 mg PO HS PRN PRN Reason: INSOMNIA Metoprolol Tartrate (Lopressor Injection -) 5 mg IVPUSH Q4H PRN PRN Reason: TACHYCARDIA > 110 Last Admin: 05/31/18 08:24 Dose: 5 mg Metoprolol Tartrate (Lopressor -) 12.5 mg PO BID [facility] Last Admin: 05/31/18 09:54 Dose: 12.5 mg Multivitamins/Minerals/Vitamin C (Tab-A-Vit -) 1 tab PO DAILY [facility] Last Admin: 05/31/18 09:56 Dose: 1 tab Nicotine (Nicoderm Patch -) 21 mg TD DAILY [facility] Last Admin: 05/31/18 12:49 Dose: 21 mg Pantoprazole Sodium (Protonix -) 40 mg PO DAILY [facility] Last Admin: 05/31/18 09:55 Dose: 40 mg A/P Acute Hypoxic Respiratory Failure Pneumonia +Legionella Ag Acute Pulmonary Edema/LV Systolic Heart Failure Severe Mitral Regurgitation COPD CAD s/p CABG HTN Hyperipidemia Acute Kidney Injury - continue antibiotics - hold lasix - monitor urine output, creatinine - inhaled bronchodilators - O2 to keep SpO2 >90% - BiPAP as needed to assist in work of breathing - replete lytes - DVT prophylaxis - for cardiac cath when renal function improves
[2018-05-31] MEDS: ATORVASTATIN CA 10 MG TABLET (FP) PO SCH (21:01)
[2018-06-01] MEDS: HEPARIN NA (PORCINE) 5,000 UNITS/ML 1ML VIAL SQ SCH (06:13)
--- NOTE | 2018-06-01 07:20 | PN ---
Teaching Attending Note Name of Resident: Frantz Penny ATTENDING PHYSICIAN STATEMENT I saw and evaluated the patient. I reviewed the resident's note and discussed the case with the resident. I agree with the resident's findings and plan as documented with exceptions below. SUBJECTIVE: patient seen and examined. no new complaints. Reports some pain in small focal area above umbilicus only with severe coughing. Had BM yesterday, no nausea, vomiting or abdominal pain otherwise. Tolerating diet well. OBJECTIVE: Vital Signs Period Temp Pulse Resp BP Sys/Reyes Pulse Ox Last 24 Hr 97.6 F-98 F 92-120 18-26 87-93/61-72 100-100 Intake & Output 05/29/18 05/30/18 05/31/18 06/01/18 23:59 23:59 23:59 23:59 Intake Total 906 157 1790 100 Output Total 500 1500 1300 350 Balance 70 -1180 0 -250 Weight 124 lb 11.2 oz 123 lb 3.2 oz 128 lb 6 oz 123 lb 3 oz General: sitting in bed in no acute distress Chest: improved air entry, few basilar rales Abdomen: soft, focal area of tenderness above umbilicus with coughing, no swelling/erythema noted, NT otherwise, neg Escobar's sign, no voluntary or involuntary guarding or rigidity, positive bowel sounds Extremities: no edema Active Medications Acetaminophen (Tylenol -) 650 mg PO Q6H PRN PRN Reason: Fever Or Pain Last Admin: 05/31/18 08:17 Dose: 650 mg Albuterol/Ipratropium (Duoneb -) 1 amp NEB RTID [facility] Last Admin: 05/31/18 21:21 Dose: 1 amp Allopurinol (Zyloprim -) 300 mg PO DAILY [facility] Last Admin: 05/31/18 09:55 Dose: 300 mg Aspirin (Asa -) 81 mg PO DAILY [facility] Last Admin: 05/31/18 09:54 Dose: 81 mg Atorvastatin Calcium (Lipitor -) 10 mg PO HS [facility] Last Admin: 05/31/18 21:01 Dose: 10 mg Clopidogrel Bisulfate (Plavix -) 75 mg PO DAILY [facility] Last Admin: 05/31/18 09:55 Dose: 75 mg Heparin Sodium (Porcine) (Heparin -) 5,000 unit SQ TID [facility] Last Admin: 06/01/18 06:13 Dose: 5,000 unit Doxycycline Hyclate 100 mg/ (Dextrose) 100 mls @ 100 mls/hr IVPB BID [facility] Last Admin: 05/31/18 21:01 Dose: 100 mls/hr Melatonin (Melatonin) 1 mg PO HS PRN PRN Reason: INSOMNIA Metoprolol Tartrate (Lopressor Injection -) 5 mg IVPUSH Q4H PRN PRN Reason: TACHYCARDIA > 110 Last Admin: 05/31/18 08:24 Dose: 5 mg Metoprolol Tartrate (Lopressor -) 12.5 mg PO BID [facility] Last Admin: 05/31/18 21:01 Dose: 12.5 mg Multivitamins/Minerals/Vitamin C (Tab-A-Vit -) 1 tab PO DAILY [facility] Last Admin: 05/31/18 09:56 Dose: 1 tab Nicotine (Nicoderm Patch -) 21 mg TD DAILY [facility] Last Admin: 05/31/18 12:49 Dose: 21 mg Pantoprazole Sodium (Protonix -) 40 mg PO DAILY [facility] Last Admin: 05/31/18 09:55 Dose: 40 mg Laboratory Results - last 24 hr 06/01/18 06/01/18 07:23 07:23 Sodium 134 L Potassium 5.0 Chloride 98 Carbon Dioxide 25 Anion Gap 11 BUN 35 H Creatinine 1.1 Creat Clearance w eGFR > 60 Random Glucose 111 H Calcium 8.8 Phosphorus 3.9 Cancelled Magnesium 1.7 L Cancelled ASSESSMENT AND PLAN: 67 yo M with PMHx of CAD s/p CABG (2002), CHF , active heavy smoker x35 years, COPD, HTN, HLD admitted with acute hypoxic respiratory failure. -Acute hypoxic respiratory failure -Acute multifocal Legionella PNA -Acute systolic heart failure exacerbation -Severe Systolic Dysfunction with EF 15-20%, r/o ischemic cardiomyopathy given abnormal stress test -Sepsis due to PNA -OLIMPIA, suspect form sepsis +/- CHF -Multifocal Atrial tachycardia -Hyponatremia, suspect hypervolumic/Legionella related -Hypokalemia -Hypomagnesemia -Asymptomatic hypotension, suspect partly from very poor EF -Nicotine dependence -Prolonged QTc -Continuous nicotine dependence -COPD, unclear if partly contributory to high oxygen requirements -CAD s/p CABG -Abdominal wall pain, musculoskeletal from coughing, benign exam Plan: Renal function stable. Discussed with Dr. Barnes, will continue to hold losartan and lasix pre cath. Strict I/Os. Doxycycline, antibiotic day . ID input noted. Bipap prn, taper oxygen as tolerated. Abnormal stress test noted Continue ASA/plavix/statin/metoprolol. lasix as tolerated as above(s/p dobutamine/lasix drip initially). Replete Mg, interval EKG to monitor QTc. Allopurinol DVTPPX PT eval noted, will need ALPHONSO on d/c DIspo d/c to [facility] today for cardiac cath, will eventually need ALPHONSO when medically ready for d.c. Plan discussed with patient in detail, all questions answered.
[2018-06-01] MEDS: ACETAMINOPHEN 325 MG TABLET (FP) PO PRN (08:09)
[2018-06-01] MEDS: ALBUTEROL SO4 2.5/IPRATROPIUM 0.5 INH SOL 3 ML VIAL.NEB. NEB SCH (08:15)
--- NOTE | 2018-06-01 08:18 | PN ---
Progress Note, Physician Chief Complaint: Pt katlin no chest pain or dyspnea. History of Present Illness: Patient is a 67 black man with history of CAD s/p CABG (denies hx OR), etoh abuse (drinks 1/3 bottle of gin per day; last drink ?2 days ago), current tobacco abuse (and for many years at 1/2-1 ppd), HTN, HLD, here today complaining of shortness of breath for the past 4 days. Patient states that he has chest pain in both sides when he takes a deep breath. Patient states that he noticed his eyes were proptotic starting this morning. Denies history of thyroid problems. Last drink was yesterday. Daughter endorses tactile fever. Denies history of blood clots. Denies leg swelling. 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 - Current Medication List Current Medications: Active Medications Acetaminophen (Tylenol -) 650 mg PO Q6H PRN PRN Reason: Fever Or Pain Last Admin: 06/01/18 08:09 Dose: 650 mg Albuterol/Ipratropium (Duoneb -) 1 amp NEB RTID [facility] Last Admin: 05/31/18 21:21 Dose: 1 amp Allopurinol (Zyloprim -) 300 mg PO DAILY [facility] Last Admin: 05/31/18 09:55 Dose: 300 mg Aspirin (Asa -) 81 mg PO DAILY [facility] Last Admin: 05/31/18 09:54 Dose: 81 mg Atorvastatin Calcium (Lipitor -) 10 mg PO HS [facility] Last Admin: 05/31/18 21:01 Dose: 10 mg Clopidogrel Bisulfate (Plavix -) 75 mg PO DAILY [facility] Last Admin: 05/31/18 09:55 Dose: 75 mg Furosemide (Lasix -) 40 mg PO DAILY [facility] Heparin Sodium (Porcine) (Heparin -) 5,000 unit SQ TID [facility] Last Admin: 06/01/18 06:13 Dose: 5,000 unit Doxycycline Hyclate 100 mg/ (Dextrose) 100 mls @ 100 mls/hr IVPB BID [facility] Last Admin: 05/31/18 21:01 Dose: 100 mls/hr Melatonin (Melatonin) 1 mg PO HS PRN PRN Reason: INSOMNIA Metoprolol Tartrate (Lopressor Injection -) 5 mg IVPUSH Q4H PRN PRN Reason: TACHYCARDIA > 110 Last Admin: 05/31/18 08:24 Dose: 5 mg Metoprolol Tartrate (Lopressor -) 12.5 mg PO BID [facility] Last Admin: 05/31/18 21:01 Dose: 12.5 mg Multivitamins/Minerals/Vitamin C (Tab-A-Vit -) 1 tab PO DAILY [facility] Last Admin: 05/31/18 09:56 Dose: 1 tab Nicotine (Nicoderm Patch -) 21 mg TD DAILY [facility] Last Admin: 05/31/18 12:49 Dose: 21 mg Pantoprazole Sodium (Protonix -) 40 mg PO DAILY [facility] Last Admin: 05/31/18 09:55 Dose: 40 mg - Objective Vital Signs: Vital Signs Temperature 97.6 F 06/01/18 06:00 Pulse Rate 97 H 06/01/18 06:00 Respiratory Rate 20 06/01/18 06:00 Blood Pressure 90/69 06/01/18 06:00 O2 Sat by Pulse Oximetry (%) 100 05/31/18 22:00 Constitutional: Yes: Calm Eyes: Yes: WNL Labs: CBC, BMP 05/31/18 05:30 INR, PTT INR 1.04 (0.83-1.09) 05/20/18 12:00 Problem List - Problems (1) HTN (hypertension) Assessment/Plan: on metoprolol and losartan (HTN; systolic heart failure); myocardial ischemia). Code(s): I10 - ESSENTIAL (PRIMARY) HYPERTENSION (2) Hx of CABG Assessment/Plan: Pt says CABG was done in [place] in 2002. Code(s): Z95.1 - PRESENCE OF AORTOCORONARY BYPASS GRAFT (3) Hypoalbuminemia Code(s): E88.09 - OTH DISORDERS OF PLASMA-PROTEIN METABOLISM, NEC (4) [place] cardiac risk >20% in next 10 years Assessment/Plan: LExiscan stress MIBI 05/29/2018: moderately large zone of moderately intense inferior ischemia; poor LVEF. Discussed importance of coronary angiogram with pt and his ; benefits vs risks were gone over in detail. They agree for him to have the procedure, [facility]. Start clopidogrel. Continue statin. Avoid dehydration. Code(s): Z91.89 - OTH PERSONAL RISK FACTORS, NOT ELSEWHERE CLASSIFIED (5) Nicotine addiction Assessment/Plan: pt agress to start nicotine patch. Code(s): F17.200 - NICOTINE DEPENDENCE, UNSPECIFIED, UNCOMPLICATED (6) Elevated LFTs Code(s): R94.5 - ABNORMAL RESULTS OF LIVER FUNCTION STUDIES (7) Acute respiratory distress Code(s): R06.03 - ACUTE RESPIRATORY DISTRESS (8) Acute on chronic systolic and diastolic heart failure, NYHA class 3 Assessment/Plan: Now on metoprolol and losartan. F/u BUN/Cr, electrolytes, Is and Os, daily weight. Poor LVEF; + stress MIBI. Pt for coronary angiogram. Code(s): I50.43 - ACUTE ON CHRONIC COMBINED SYSTOLIC AND DIASTOLIC HRT FAIL (9) Sepsis Assessment/Plan: On Vancomycin. Legionella Ag. F/u EKG (prolonged QT). Code(s): A41.9 - SEPSIS, UNSPECIFIED ORGANISM (10) Renal dysfunction Assessment/Plan: furosemide held yesterday due to increase in Cfr. F/u BUn/Cr today. Code(s): N28.9 - DISORDER OF KIDNEY AND URETER, UNSPECIFIED
[2018-06-01 08:32] LABS: ANION GAP 11 MMOL/L (8-16); BLOOD UREA NITROGEN 35 mg/dL (7-18); CALCIUM 8.8 mg/dL (8.5-10.1); CHLORIDE 98 mmol/L (98-107); CO2 25 mmol/L (21-32); CREATININE 1.1 mg/dL (0.7-1.3); GLUCOSE,RANDOM 111 mg/dL (74-106); PHOSPHOROUS 3.9 mg/dL (2.5-4.9); SODIUM 134 mmol/L (136-145)
[2018-06-01 08:37] LABS: MAGNESIUM 1.7 mg/dL (1.8-2.4)
[2018-06-01] MEDS ORDERED: MAGNESIUM SULF 50% (8.12 MEQ/2 ML-1 GM VIAL) IVPB ONE (09:58)
[2018-06-01] MEDS ORDERED: MAGNESIUM OXIDE 400 MG TABLET (FP) PO SCH (10:00)
[2018-06-01] MEDS ORDERED: FUROSEMIDE 40 MG TABLET (FP) PO SCH (10:00)
[2018-06-01] MEDS: CLOPIDOGREL BISULFATE 75 MG TABLET (FP) PO SCH (10:20)
[2018-06-01] MEDS: MULTIVITAMINS (DAILY MVI) TABLET (FP) PO SCH (10:20)
[2018-06-01] MEDS: PANTOPRAZOLE 40 MG TABLET (FP) PO SCH (10:22)
[2018-06-01] MEDS: ASPIRIN 81 MG CHEWABLE TABLETS PO SCH (10:22)
[2018-06-01] MEDS: METOPROLOL TARTRATE 25 MG TABLET (FP) PO SCH (10:22)
[2018-06-01] MEDS: NICOTINE 21 MG/24 HOURS TOPICAL PATCH TD SCH (10:23)
[2018-06-01] MEDS: ALLOPURINOL 100 MG TABLET (FP) PO SCH (10:25)
[2018-06-01 10:29] VITALS: BP 84/59; PULSE 104; TEMP 97.1
--- NOTE | 2018-06-01 12:52 | DS ---
Physical Exam: SUBJECTIVE: Patient seen and examined this AM. His only complaint is pain in his back and abdomen on the left side when he takes a deep breath. Discussed with patient that is is most likely musculoskeletal due to work of breathing during admission and laying in bed for long periods of time. OBJECTIVE: Vital Signs Period Temp Pulse Resp BP Sys/Reyes Pulse Ox Last 24 Hr 97.1 F-98 F 92-112 18-20 84-90/59-69 100-100 PHYSICAL EXAM GENERAL: A&O, no acute distress HEAD: Normocephalic, atraumatic. EYES: PERRL, discoloration of sclera (beige colored), proptosis noted EARS, NOSE, THROAT: oropharynx clear without exudates. Moist mucous membranes. NECK: supple without lymphadenopathy LUNGS: Bibasilar rales HEART: Tachycardic, regular rythm, normal S1 and S2 without murmur ABDOMEN: Soft, nontender to palpation, normoactive bowel sounds MUSCULOSKELETAL: No bony deformities. tender posteriorly on the left near rib angles EXTREMITIES: 2+ pulses, warm, well-perfused. No peripheral edema. NEUROLOGICAL: Cranial nerves II-XII grossly intact. Normal speech. 5/5 strength in all extremities. PSYCHIATRIC: Cooperative. Good eye contact. Appropriate mood and affect. SKIN: Warm, dry, no rashes or lesions noted LABS Laboratory Results - last 24 hr 06/01/18 06/01/18 07:23 07:23 Sodium 134 L Potassium 5.0 Chloride 98 Carbon Dioxide 25 Anion Gap 11 BUN 35 H Creatinine 1.1 Creat Clearance w eGFR > 60 Random Glucose 111 H Calcium 8.8 Phosphorus 3.9 Cancelled Magnesium 1.7 L Cancelled IMAGING: Multiple CXRs throughout admission: b/l pulmonary and pleural changes worse than previous in records, improved throughout admission, still with some basilar changes upon most recent CXR ECHO: Ejection Fraction 15-20%, Severe global hypokinesis of left ventricle, left atrium severely dilated, Severe mitral regurgitation Myocardial Perfusion Scan: Moderate to large zone of inferior reversible defect from base to apex compatible with moderate intensity ischemia Ejection Fraction of 21% HOSPITAL COURSE: Date of Admission:05/20/18 Date of Discharge: 06/01/18 The patient was initially admitted with weakness in his legs and respiratory distress and found to have an atypical pneumonia, likely Legionella, as well as a severe systolic heart failure as mentioned on ECHO findings above. He initially required Dobutamine drip for maintenance of heart rate and blood pressure secondary to the heart failure. The urine antigen for Legionella came back presumptive positive and transtracheal swab was performed which is still pending upon transfer. He was seen by ID who recommended Levaquin, however his QTc was consistently prolonged so after 5 days, he was switched to Doxycycline, which was continued (for 2 more days) upon transfer for a total treatment of 14 days. He was seen by pulmonology who managed his acute respiratory failure. Pt never required intubation, though was initially on bilevel ventilation which he was slowly weaned off of to venti mask and then 3L NC upon discharge. He was given duonebs as needed with good relief. He was seen by cardiology and he was slowly tapered off the dobutamine drip and losartan, toprol, and lasix were restarted. Pt underwent a perfusion scan as mentioned above which showed an area of reversible ischemia. Cardiology recommended transfer for PCI and the patient and his family agreed. Prior to transfer, his BUN/Cr were mildly elevated so Lasix and Losartan were held in order to prevent overdiuresis prior to cardiac cath. Electrolytes were repleted as necessary and the patient was transferred with recommendation to continue PO Mg. Minutes to complete discharge: 40 Discharge Summary Reason For Visit: PNEUMONIA Current Active Problems Acute on chronic systolic and diastolic heart failure, NYHA class 3 (Acute) Acute respiratory distress (Acute) Elevated LFTs (Acute) [place] cardiac risk >20% in next 10 years (Acute) HTN (hypertension) (Acute) Hx of CABG (Acute) Hypoalbuminemia (Acute) Nicotine addiction (Acute) Renal dysfunction (Acute) Sepsis (Acute) Condition: Stable - Instructions Diet, Activity, Other Instructions: You were admitted with weakness in your legs and found to have legionella pneumonia. You were seen by an infectious disease doctor who made recommendations on your antibiotics while you were in the hospital. The weakness in your legs improved You were seen by a master merchandiser during your admission. An ultrasound of your heart showed very decreased function. You required an IV continuous medicine called Dobutamine to maintain your heart rate and blood pressure. A stress test of your heart revealed an area of decreased blood flow that was reversible and resolved after the stress test. The master merchandiser recommended you be transferred to [facility] for a catheterization procedure of your heart which cannot be performed here. This was discussed with you and you agreed to be transferred for the procedure. Many of your home medications were held when you were admitted due to an elevation in your kidney numbers and low blood pressure. They were slowly restarted as tolerated. Some of your electrolytes have been low, so they were repleted with oral and IV electrolytes. You are also on oral magnesium which can be continued upon transfer to [facility]. RECOMMENDATIONS ON TRANSFER: Continue antibiotic doxycycline till 06/02 to finish a 2 week course. Your losartan and lasix are being held on transfer till cardiac catheterization and can be resumed after the procedure per cardiology recommendations. Continue magnesium oxide 800 mg daily for 2 more days. Advise magnesium levels monitoring. Also interval EKG to monitor your QTc interval. Your legionella cultures final results are pending and you can have your doctor follow up on final report as needed. It is very important that you follow up with your primary care physician within one week upon discharge from the hospital It is also very important that you follow up with Cardiology (Heart doctor) and Pulmonology (lung doctor) within 1 week of discharge Referrals: Roge Cutler [Primary Care Provider] - Cm Barnes MD [Staff Physician] - Deshaun Galloway MD [Staff Physician] - Disposition: TRANSFER ACUTE CARE/OTHER HOSP - Home Medications Comprehensive Discharge Medication List: Ambulatory Orders Allopurinol [Zyloprim -] 300 mg PO DAILY 05/20/18 Multivit-Min/FA/Lycopen/Lutein [Centrum Silver Tablet] 1 each PO DAILY 05/20/18 Acetaminophen [Tylenol .Regular Strength -] 650 mg PO Q6H PRN tablet 05/31/18 Albuterol 2.5/Ipratropium 0.5 [Duoneb -] 1 amp NEB RTID amp 05/31/18 Aspirin [ASA -] 81 mg PO DAILY tab.chew 05/31/18 Clopidogrel Bisulfate [Plavix -] 75 mg PO DAILY tablet 05/31/18 Doxycycline Injection [Vibramycin Injection -] 100 mg IVPB BID vial 05/31/18 Metoprolol Tartrate Injection [Lopressor Injection -] 5 mg IVPUSH Q4H PRN vial 05/31/18 Metoprolol Tartrate [Lopressor -] 12.5 mg PO BID tablet 05/31/18 Multivitamins [Multivit ([facility] Formulary)] 1 tab PO DAILY tab 05/31/18 Nicotine Patch [Nicoderm Patch -] 21 mg TD DAILY patch 05/31/18 Pantoprazole Sodium [Protonix -] 40 mg PO DAILY tablet.ec 05/31/18 Atorvastatin Ca [Lipitor] 10 mg PO HS tablet 06/01/18 Heparin - 5,000 unit SQ TID vial 06/01/18 Magnesium Oxide [Mag-Ox -] 800 mg PO DAILY 3 Days tablet 06/01/18 This patient is new to me today: No Emergency Visit: Yes ED Registration Date: 05/20/18 Care time: The patient presented to the Emergency Department on the above date and was hospitalized for further evaluation of their emergent condition. Critical Care patient: Yes Total Critical Care Time (in minutes): 35 Critical Care Statement: The care of this patient involved high complexity decision making to prevent further life threatening deterioration of the patient 's condition and/or to evaluate & treat vital organ system(s) failure or risk of failure. - Discharge Referral Referred to [facility] No
== END 2018-06-01 12:33 | DRG 871 ==
LOC: JER 11:27 → JERBED 14:54 → JICU 17:10 → J2W 05-23 17:19
PROVIDERS: ADMIT Hospitalist; ATTEND Hospitalist
PROC: 5A09457 Assistance with Respiratory Ventilation, 24-96 Consecutive Hours, Continuous Positive Airway Pressure (ICD-10-PCS; principal; 2018-05-20)
DX: A41.9 Sepsis, unspecified organism (principal); J96.01 Acute respiratory failure with hypoxia; I50.23 Acute on chronic systolic (congestive) heart failure; A48.1 Legionnaires' disease; E43 Unspecified severe protein-calorie malnutrition; E87.1 Hypo-osmolality and hyponatremia; N17.9 Acute kidney failure, unspecified; I47.1 Supraventricular tachycardia; Z68.1 Body mass index [BMI] 19.9 or less, adult; I42.0 Dilated cardiomyopathy; J44.9 Chronic obstructive pulmonary disease, unspecified; I25.10 Atherosclerotic heart disease of native coronary artery without angina pectoris; N28.9 Disorder of kidney and ureter, unspecified; E78.5 Hyperlipidemia, unspecified; F17.210 Nicotine dependence, cigarettes, uncomplicated; F10.10 Alcohol abuse, uncomplicated; E83.42 Hypomagnesemia; M10.9 Gout, unspecified; K63.5 Polyp of colon; R94.5 Abnormal results of liver function studies; E88.09 Other disorders of plasma-protein metabolism, not elsewhere classified; I11.0 Hypertensive heart disease with heart failure; E87.6 Hypokalemia; E83.39 Other disorders of phosphorus metabolism; I34.0 Nonrheumatic mitral (valve) insufficiency; I45.81 Long QT syndrome; Z95.1 Presence of aortocoronary bypass graft; Z95.2 Presence of prosthetic heart valve
CPT/HCPCS: 36415; 36600; 71045-TC-FY; 78452-TC; 80048; 80053; 80061; 80307; 81003; 81015; 82375; 82550; 82570; 82803; 82962; 83036; 83050; 83605; 83721; 83735; 83880; 84100; 84132; 84300; 84443; 84484; 85025; 85027; 85610; 85730; 87040; 87070; 87086; 87389; 87899; 93005; 93010; 93017; 93306-TC; 94640; 94660; 97116-GP; 97161-GP; 99283-25; A9502; G0480; J1250; J1644; J2785; J7030; J7620

== ENCOUNTER 2019-01-15 04:28 | Inpatient (IN) | payer OTHER ==
--- NOTE | 2019-01-15 04:54 | PDOC ---
Attending Attestation - Resident Resident Name: IzzyRoge - ED Attending Attestation I have performed the following: I have examined & evaluated the patient, The case was reviewed & discussed with the resident, I agree w/resident's findings & plan - HPI HPI: 01/15/19 06:54 Pt came after multiple episodes of vomiting; black vomitus and SOB and fatigue. and dehydration PMD is dannie and communication equipment mechanic is ivanna. Pt brought by his daughter and grandkids. - Physicial Exam PE: 01/15/19 06:55 Agree with resident exam. Pt has skin tenting. He is A+Ox3 and he has no body aches. He thinks he had food poisoning from the [place] [employer] leftovers. He is the only one who ate them. - Medical Decision Making 01/15/19 06:57 Lactic acid is 6; Hb is 7; normal hb is 11 01/20/19 01:08 Pt will be admitted for symptomatic anemia
--- NOTE | 2019-01-15 04:57 | PDOC ---
History of Present Illness - General Stated Complaint: SHORTNESS OF BREATH,VOMITING Time Seen by Provider: 01/15/19 04:53 - History of Present Illness Initial Comments: 01/15/19 05:26 The patient is a 68 year old male with a history of HTN, HLD, CAD s/p CABG and stenting who presents for evaluation of shortness of breath and vomiting. The patient is accompanied by family who assist in providing the history. They note that the patient began vomiting and experiencing shortness of breath beginning yesterday evening. They noted dark colored vomit as well as noting that the patient was slightly confused prompting his presentation to the ED for further evaluation. On presentation the patient reports nausea, fatigue and shortness of breath. He otherwise denies any fevers, chills, chest pain, abdominal pain, or changes with urination or bowel movements. Past History - Past Medical History Allergies/Adverse Reactions: Allergies Allergy/AdvReac Type Severity Reaction Status Date / Time No Known Allergies Allergy Verified 05/20/18 11:37 Home Medications: Ambulatory Orders Allopurinol [Zyloprim -] 300 mg PO DAILY 05/20/18 Multivit-Min/FA/Lycopen/Lutein [Centrum Silver Tablet] 1 each PO DAILY 05/20/18 Acetaminophen [Tylenol .Regular Strength -] 650 mg PO Q6H PRN tablet 05/31/18 Albuterol 2.5/Ipratropium 0.5 [Duoneb -] 1 amp NEB RTID amp 05/31/18 Aspirin [ASA -] 81 mg PO DAILY tab.chew 05/31/18 Clopidogrel Bisulfate [Plavix -] 75 mg PO DAILY tablet 05/31/18 Doxycycline Injection [Vibramycin Injection -] 100 mg IVPB BID vial 05/31/18 Metoprolol Tartrate Injection [Lopressor Injection -] 5 mg IVPUSH Q4H PRN vial 05/31/18 Metoprolol Tartrate [Lopressor -] 12.5 mg PO BID tablet 05/31/18 Multivitamins [Multivit ([facility] Formulary)] 1 tab PO DAILY tab 05/31/18 Nicotine Patch [Nicoderm Patch -] 21 mg TD DAILY patch 05/31/18 Pantoprazole Sodium [Protonix -] 40 mg PO DAILY tablet.ec 05/31/18 Atorvastatin Ca [Lipitor] 10 mg PO HS tablet 06/01/18 Heparin - 5,000 unit SQ TID vial 06/01/18 Magnesium Oxide [Mag-Ox -] 800 mg PO DAILY 3 Days tablet 06/01/18 COPD: No CHF: Yes HTN: Yes Hypercholesterolemia: Yes - Surgical History Cardiac Surgery: Yes (S/P CABG 2002) - Immunization History Immunization Up to Date: No - Suicide/Smoking/Psychosocial Hx Smoking History: Former smoker Have you smoked in the past 12 months: Yes Number of Cigarettes Smoked Daily: 20 Cigars Per Day: 0 'Breaking Loose' booklet given: 05/20/18 Hx Alcohol Use: Yes (gin cocktail nightly) Drug/Substance Use Hx: No Substance Use Type: Alcohol Hx Substance Use Treatment: No Review of Systems - Review of Systems Comments:: 01/15/19 05:29 Constitutional: No fevers, chills, fatigue, malaise HEENT: No Rhinorrhea, nasal congestion, visual changes Cardiovascular: No chest pain, syncope, palpitations, lightheadedness Respiratory: SOB. No Cough, Hemoptysis, Gastrointestinal: Nausea, vomiting. No Abdominal pain, Constipation, Diarrhea, Melena Genitourinary: No Dysuria, Frequency, Urgency, Hesitancy, Hematuria, Flank pain Musculoskeletal: No Myalgia, arthralgia Skin: No rashes, itching, bruising, pallor Neurologic: No Headache, Dizziness, Numbness, Weakness, or Tingling Psychiatric: No Hallucinations. No SI or HI *Physical Exam - Physical Exam Comments: 01/15/19 05:30 General Appearance: Nourished. No Apparent Distress HEENT: EOMI, RUTHIE. No Pharyngeal Erythema, Tonsillar Exudate, Tonsillar Erythema Neck: No Cervical Lymphadenopathy Respiratory/Chest: Lungs Clear, Normal Breath Sounds. No Crackles, Rales, Rhonchi, Wheezing Cardiovascular: Regular Rhythm, Tachycardic Rate. No Murmur, Gallops, Rubs Gastrointestinal/Abdominal: Normal Bowel Sounds, Soft. No Guarding, Rebound, Tenderness Musculoskeletal: No CVA Tenderness Extremity: Normal Capillary Refill Integumentary: Cool to touch. Skin tenting noted. 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 - Medical Decision Making 01/15/19 05:31 The patient is a 68 year old male with a history of HTN, HLD, CAD s/p CABG and stenting who presents for evaluation of shortness of breath and vomiting. Differential includes but is not limited to: Arrhythmia, ACS, CHF, Sepsis, Pneumonia, Anemia, Infectious, Metabolic Derangement. Given the patient's history and physical exam, we will obtain a cbc, cmp, troponin, bnp, abg, blood cultures, coags, d-dimer, ua, urine cultures, chest plain film, ekg to evaluate further. The patient is tachycardic on exam and we will treat with 5mg of metoprolol. We will continue to closely monitor and reassess while here in the ED. 01/15/19 06:43 CBC demonstrates a hgb of 7.2. Coags are unremarkable. Stool for occult blood is positive. Chest plain film demonstrates no acute findings as preliminarily read by ED physician. Given the patient's acute drop in hgb in the setting of guiac positive stool, we are concerned the patient may be having an active GI bleed. We will transfuse the patient with 2 units of PRBC and treat him with protonix. The patient is now hypotensive to 80s systolic with improved heart rate. He will likely require ICU level care given his active GI bleed and hypotension and tachycardia. We will continue to monitor and reassess while here in the ED. CMP, troponin, bnp are still pending. 01/15/19 06:55 Patient signed out to Dr. Gillis pending cmp, troponin, bnp and admission. *DC/Admit/Observation/Transfer Diagnosis at time of Disposition: Shortness of breath GI bleed Qualifiers: GI bleed type/associated pathology: unspecified gastrointestinal hemorrhage type Qualified Code(s): K92.2 - Gastrointestinal hemorrhage, unspecified Anemia Qualifiers: Anemia type: unspecified type Qualified Code(s): D64.9 - Anemia, unspecified - Discharge Dispostion Condition at time of disposition: Guarded Decision to Admit order: Yes - Referrals - Patient Instructions - Post Discharge Activity
[2019-01-15] MEDS ORDERED: METOPROLOL TARTRATE 5 MG/5 ML VIAL IVPUSH ONE (05:22)
[2019-01-15] MEDS ORDERED: METOPROLOL TARTRATE 5 MG/5 ML VIAL ONE (05:26)
[2019-01-15] MEDS ORDERED: SODIUM CHLORIDE 500 ML IV STA (05:30)
[2019-01-15 05:38] LABS: ARTERIAL BLD GAS O2 SATURATION 99.3 % (95-98); ARTERIAL BLOOD GAS BASE EXCESS 2.8 meq/l (-2-2); ARTERIAL BLOOD GAS PCO2 33.2 mmHg (35-45); ARTERIAL BLOOD GAS PO2 144 mmHg (80-105); CARBOXYHEMOGLOBIN 1.6 % (0-2)
[2019-01-15 05:51] LABS: BASO % 0.1 % (0-2.0); EOS % 0.1 % (0-4.5); HEMATOCRIT 22.4 % (35.4-49); HEMOGLOBIN 7.2 GM/dL (11.7-16.9); LYMPH % 16.6 % (8-40); MCHC 32.1 g/dl (32.0-35.9); MEAN CELL VOLUME 84.1 fl (80-96); MEAN PLT VOLUME 9.3 fl (7.5-11.1); MONO % 4.9 % (3.8-10.2); NEUT % 78.3 % (42.8-82.8); PLATELET COUNT 188 K/MM3 (134-434); RBC 2.67 M/mm3 (4.00-5.60); RDW 19.4 % (11.9-15.9)
[2019-01-15 06:08] LABS: INR 1.08 (0.83-1.09); PROTHROMBIN TIME (PATIENT) 12.7 SEC (9.7-13.0)
[2019-01-15 06:10] LABS: ACTIVATED PTT 23.6 SECONDS (25.2-36.5)
[2019-01-15] MEDS ORDERED: PANTOPRAZOLE SODIUM 40 MG VIAL IVPUSH ONE (06:10)
[2019-01-15] MEDS ORDERED: SODIUM CHLORIDE 0.9% 500 ML INFUS.BAG IV ONE (06:16)
[2019-01-15] MEDS ORDERED: PANTOPRAZOLE SODIUM 40 MG/100 ML BAG IVPB ONE (06:32)
[2019-01-15] MEDS ORDERED: POTASSIUM CHLORIDE TABS 20 MEQ TABLET.ER (FP) PO ONE ×2 (06:58→07:20)
[2019-01-15] MEDS ORDERED: MAGNESIUM SULF 50% (8.12 MEQ/2 ML-1 GM VIAL) IVPB ONE ×2 (06:58→08:03)
[2019-01-15 07:02] LABS: CREATININE 3.1 mg/dL (0.55-1.3)
[2019-01-15 07:04] LABS: ALBUMIN 3.1 g/dl (3.4-5.0)
[2019-01-15 07:05] LABS: POTASSIUM 2.9 mmol/L (3.5-5.1)
[2019-01-15] MEDS ORDERED: MAGNESIUM SULF 50% (8.12 MEQ/2 ML-1 GM VIAL) ONE (07:21)
[2019-01-15] MEDS ORDERED: KCL 10 MEQ IVPB 10 MEQ/100 ML INFUS.BAG IVPB ONE (07:21)
[2019-01-15 07:22] LABS: ALK PHOS 57 U/L (45-117); ANION GAP 18 MMOL/L (8-16); BILIRUBIN,TOTAL 0.4 mg/dL (0.2-1); BLOOD UREA NITROGEN 98 mg/dL (7-18); CALCIUM 8.5 mg/dL (8.5-10.1); CHLORIDE 89 mmol/L (98-107); CO2 27 mmol/L (21-32); GLUCOSE,RANDOM 237 mg/dL (74-106); N-TERMINAL BNP 745.4 pg/ml (5-125); SGOT/AST 20 U/L (15-37); SGPT/ALT 19 U/L (13-61); SODIUM 134 mmol/L (136-145)
--- NOTE | 2019-01-15 07:30 | PDOC ---
*Physical Exam - Vital Signs Last Vital Signs Temp Pulse Resp BP Pulse Ox 95.4 F L 107 H 20 87/53 L 99 01/15/19 04:50 01/15/19 06:15 01/15/19 05:50 01/15/19 06:15 01/15/19 05:50 ED Treatment Course - LABORATORY CBC & Chemistry Diagram: 01/15/19 05:15 01/15/19 05:15 - ADDITIONAL ORDERS Additional order review: Laboratory Results 01/15/19 01/15/19 01/15/19 06:07 05:15 05:15 PT with INR INR PTT (Actin FS) D-Dimer 250 Anticoagulation Therapy Puncture Site ABG pH ABG pCO2 at Pt Temp ABG pO2 at Pt Temp ABG HCO3 ABG O2 Sat (Measured) ABG O2 Content ABG Base Excess Graeme Test Carboxyhemoglobin Methemoglobin O2 Delivery Device Oxygen Flow Rate Vent Mode Vent Rate Mechanical Rate Pressure Support Vent Sodium Potassium Chloride Carbon Dioxide Anion Gap BUN Creatinine Creat Clearance w eGFR Random Glucose Lactic Acid Calcium Total Bilirubin AST ALT Alkaline Phosphatase Troponin I B-Natriuretic Peptide Cancelled Total Protein Albumin Stool Occult Blood Blood Type A POSITIVE Antibody Screen Negative Crossmatch See Detail 01/15/19 01/15/19 01/15/19 05:15 05:15 05:15 PT with INR 12.70 INR 1.08 PTT (Actin FS) 23.6 L D-Dimer Anticoagulation Therapy Puncture Site ABG pH ABG pCO2 at Pt Temp ABG pO2 at Pt Temp ABG HCO3 ABG O2 Sat (Measured) ABG O2 Content ABG Base Excess Graeme Test Carboxyhemoglobin Methemoglobin O2 Delivery Device Oxygen Flow Rate Vent Mode Vent Rate Mechanical Rate Pressure Support Vent Sodium 134 L Potassium 2.9 L* Chloride 89 L Carbon Dioxide 27 Anion Gap 18 H BUN 98 H Creatinine 3.1 H Creat Clearance w eGFR 20.08 Random Glucose 237 H Lactic Acid 6.8 H* Calcium 8.5 Total Bilirubin 0.4 AST 20 ALT 19 Alkaline Phosphatase 57 Troponin I 0.02 B-Natriuretic Peptide 745.4 H Total Protein 6.0 L Albumin 3.1 L Stool Occult Blood Blood Type Antibody Screen Crossmatch 01/15/19 01/15/19 05:10 05:10 PT with INR INR PTT (Actin FS) D-Dimer Anticoagulation Therapy No Result Required. Puncture Site No Result Required. ABG pH 7.50 H ABG pCO2 at Pt Temp 33.2 L ABG pO2 at Pt Temp 144 H ABG HCO3 25.5 ABG O2 Sat (Measured) 99.3 H ABG O2 Content 14.5 L ABG Base Excess 2.8 H Graeme Test No Result Required. Carboxyhemoglobin 1.6 Methemoglobin 0.1 O2 Delivery Device No Result Required. Oxygen Flow Rate No Result Required. Vent Mode No Result Required. Vent Rate No Result Required. Mechanical Rate No Result Required. Pressure Support Vent No Result Required. Sodium Potassium Chloride Carbon Dioxide Anion Gap BUN Creatinine Creat Clearance w eGFR Random Glucose Lactic Acid Calcium Total Bilirubin AST ALT Alkaline Phosphatase Troponin I B-Natriuretic Peptide Total Protein Albumin Stool Occult Blood Positive Blood Type Antibody Screen Crossmatch 01/15/19 05:15 RBC 2.67 L MCV 84.1 MCHC 32.1 RDW 19.4 H MPV 9.3 Neutrophils % 78.3 Lymphocytes % 16.6 D Monocytes % 4.9 Eosinophils % 0.1 Basophils % 0.1 - Medications Given in the ED: ED Medications Discontinued Medications Generic Name Dose Route Start Last Admin Trade Name Freq PRN Reason Stop Dose Admin Sodium Chloride 500 mls @ 500 mls/hr 01/15/19 05:30 01/15/19 05:10 Normal Saline - IV 01/15/19 06:29 500 mls/hr ASDIR STA Administration Metoprolol Tartrate 5 mg 01/15/19 05:22 01/15/19 05:30 Lopressor Injection - IVPUSH 01/15/19 05:23 5 mg ONCE ONE Administration Pantoprazole Sodium 40 mg 01/15/19 06:10 01/15/19 06:40 Protonix Iv IVPUSH 01/15/19 06:11 40 mg ONCE ONE Administration Sodium Chloride 500 ml 01/15/19 06:16 01/15/19 06:15 Normal Saline - IV 01/15/19 06:17 500 ml ONCE ONE Administration Medical Decision Making - Medical Decision Making Pt was signed out to me by resident Dr. Magana, who explained the presentation , ED course, any pending results, and needed interventions. Pending results include admission to ICU/GI consult and blood transfusions. Pt is currently stable (BP improving to 90s systolic, HR low 100s, Temp 97) and is lying comfortably. Pt is on a bairhugger. Blood transfusion ready from lab, will start transfusion when it arrives to ED. Added additional 20 meQ K (total 30 mg IV and 40 mg PO) and he has received 2 g IVPB Mg. Pt NPO. Spoke with GI service (Dr. Sue on-call), who requested Protonix drip. She will sign this pt out to Dr. Rush who is central sterilization technician after 8am. Pt admitted to hospitalist team (Dr. Booth) and ICU. 01/15/19 07:46 Pt was taken to ICU, was stable for the rest of stay in the ED. 01/15/19 12:47 *DC/Admit/Observation/Transfer Diagnosis at time of Disposition: Shortness of breath, Atrial fibrillation with RVR GI bleed Qualifiers: GI bleed type/associated pathology: unspecified gastrointestinal hemorrhage type Qualified Code(s): K92.2 - Gastrointestinal hemorrhage, unspecified Anemia Qualifiers: Anemia type: unspecified type Qualified Code(s): D64.9 - Anemia, unspecified - Discharge Dispostion Condition at time of disposition: Guarded Decision to Admit order: Yes - Referrals - Patient Instructions - Post Discharge Activity
--- NOTE | 2019-01-15 07:42 | HP ---
Admitting History and Physical - Past Medical History Cardiovascular: Yes: CAD (s/p CABG and biologic valve replacement [facility] [place] 2002. NO infarctions. 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 History of Recent Travel: No Home Medications - Allergies Allergies/Adverse Reactions: Allergies Allergy/AdvReac Type Severity Reaction Status Date / Time No Known Allergies Allergy Verified 05/20/18 11:37 - Home Medications Home Medications: Ambulatory Orders Allopurinol [Zyloprim -] 300 mg PO DAILY 05/20/18 Multivit-Min/FA/Lycopen/Lutein [Centrum Silver Tablet] 1 each PO DAILY 05/20/18 Acetaminophen [Tylenol .Regular Strength -] 650 mg PO Q6H PRN tablet 05/31/18 Albuterol 2.5/Ipratropium 0.5 [Duoneb -] 1 amp NEB RTID amp 05/31/18 Aspirin [ASA -] 81 mg PO DAILY tab.chew 05/31/18 Clopidogrel Bisulfate [Plavix -] 75 mg PO DAILY tablet 05/31/18 Doxycycline Injection [Vibramycin Injection -] 100 mg IVPB BID vial 05/31/18 Metoprolol Tartrate Injection [Lopressor Injection -] 5 mg IVPUSH Q4H PRN vial 05/31/18 Metoprolol Tartrate [Lopressor -] 12.5 mg PO BID tablet 05/31/18 Multivitamins [Multivit ([facility] Formulary)] 1 tab PO DAILY tab 05/31/18 Nicotine Patch [Nicoderm Patch -] 21 mg TD DAILY patch 05/31/18 Pantoprazole Sodium [Protonix -] 40 mg PO DAILY tablet.ec 05/31/18 Atorvastatin Ca [Lipitor] 10 mg PO HS tablet 06/01/18 Heparin - 5,000 unit SQ TID vial 06/01/18 Magnesium Oxide [Mag-Ox -] 800 mg PO DAILY 3 Days tablet 06/01/18 Family Disease History - Family Disease History Family Disease History: Heart Disease: Mother ( [place] age 52), Other: Father ( CV[place] age 54) Physical Examination Vital Signs: Vital Signs Temperature 95.4 F L 01/15/19 04:50 Pulse Rate 107 H 01/15/19 06:15 Respiratory Rate 20 01/15/19 05:50 Blood Pressure 87/53 L 01/15/19 06:15 O2 Sat by Pulse Oximetry (%) 99 01/15/19 05:50 Labs: CBC, BMP 01/15/19 05:15 01/15/19 05:15
[2019-01-15] MEDS: KCL 10 MEQ IVPB 10 MEQ/100 ML INFUS.BAG IVPB SCH ×3 (08:00→14:44)
--- NOTE | 2019-01-15 08:04 | HP ---
CHIEF COMPLAINT: vomiting PCP: Xu HISTORY OF PRESENT ILLNESS: 68 year old male with a hx of CAD s/p CABG (2002), cardiac stent placement x3 last year on ASA/plavix, CHF w/ 15% EF, COPD, HTN, HLD, and ethanol abuse presenting to the hospital for vomiting of 1 day duration. Patient reports the vomitus is black in color and appears coffee-ground in appearance. Reports never having it happen to him before. Also reports dark stool for 2 weeks. Patient reports eating curried goat with white rice yesterday and a glass of gin. He reports drinking every day around 1/2 pint of gin every day for many years. Denies ever having blood transfusions in the past. Denies NSAID use. Denies being told he has an abnormal heart rhythm. Had a colonoscopy in the past couple years during which he reports they found 16 polyps. Currently, patient denies CP, SOB, nausea, vomiting, abdominal pain, fevers, chills. ER course was notable for: (1) tachycardia/afib to 155 (2) LA 6.8 (3) K 2.9 (4) FOBT + (5) BP 63/30 Recent Travel: denies PAST MEDICAL HISTORY: CAD, cardiac stent placement x3 last year on ASA/plavix, CHF w/ 15% EF, COPD, HTN, HLD, and ethanol abuse PAST SURGICAL HISTORY: CABG in 2002, cataracts Social History: Smokin/2 ppd for 25 years, quit 2 months ago Alcohol: 1/2 pint of gin per day for many years Drugs: denies ever Family History: denies any family history of cancer or diabetes. Has healthy children. Allergies No Known Allergies Allergy (Verified 05/20/18 11:37) HOME MEDICATIONS: Home Medications Medication Instructions Recorded Allopurinol [Zyloprim -] 300 mg PO DAILY 05/20/18 Multivit-Min/FA/Lycopen/Lutein 1 each PO DAILY 05/20/18 [Centrum Silver Tablet] Acetaminophen [Tylenol .Regular 650 mg PO Q6H PRN tablet 05/31/18 Strength -] Albuterol 2.5/Ipratropium 0.5 1 amp NEB RTID amp 05/31/18 [Duoneb -] Aspirin [ASA -] 81 mg PO DAILY tab.chew 05/31/18 Clopidogrel Bisulfate [Plavix -] 75 mg PO DAILY tablet 05/31/18 Doxycycline Injection [Vibramycin 100 mg IVPB BID vial 05/31/18 Injection -] Metoprolol Tartrate Injection 5 mg IVPUSH Q4H PRN vial 05/31/18 [Lopressor Injection -] Metoprolol Tartrate [Lopressor -] 12.5 mg PO BID tablet 05/31/18 Multivitamins [Multivit ([facility] 1 tab PO DAILY tab 05/31/18 Formulary)] Nicotine Patch [Nicoderm Patch -] 21 mg TD DAILY patch 05/31/18 Pantoprazole Sodium [Protonix -] 40 mg PO DAILY tablet.ec 05/31/18 Atorvastatin Ca [Lipitor] 10 mg PO HS tablet 06/01/18 Heparin - 5,000 unit SQ TID vial 06/01/18 Magnesium Oxide [Mag-Ox -] 800 mg PO DAILY 3 Days tablet 06/01/18 REVIEW OF SYSTEMS CONSTITUTIONAL: generalized weakness Absent: fever, chills, diaphoresis, malaise, loss of appetite, weight change HEENT: Absent: rhinorrhea, nasal congestion, throat pain, throat swelling, difficulty swallowing, mouth swelling, ear pain, eye pain, visual changes CARDIOVASCULAR: Absent: chest pain, syncope, palpitations, irregular heart rate, lightheadedness , peripheral edema RESPIRATORY: Absent: cough, shortness of breath, dyspnea with exertion, orthopnea, wheezing, stridor, hemoptysis GASTROINTESTINAL:melena, vomiting Absent: abdominal pain, abdominal distension, nausea, diarrhea, constipation, hematochezia GENITOURINARY: Absent: dysuria, frequency, urgency, hesitancy, hematuria, flank pain, genital pain MUSCULOSKELETAL: Absent: myalgia, arthralgia, joint swelling, back pain, neck pain SKIN: Absent: rash, itching, pallor HEMATOLOGIC/IMMUNOLOGIC: Absent: easy bleeding, easy bruising, lymphadenopathy, frequent infections ENDOCRINE: Absent: unexplained weight gain, unexplained weight loss, heat intolerance, cold intolerance NEUROLOGIC: Absent: headache, focal weakness or paresthesias, dizziness, unsteady gait, seizure, mental status changes, bladder or bowel incontinence PSYCHIATRIC: Absent: anxiety, depression, suicidal or homicidal ideation, hallucinations. PHYSICAL EXAMINATION Vital Signs - 24 hr 01/15/19 01/15/19 01/15/19 04:28 04:50 05:30 Temperature 95.6 F L 95.4 F L Pulse Rate 165 H 155 H Pulse Rate [ Apical] Respiratory 38 H 26 H Rate Blood Pressure 118/88 111/88 111/88 Blood Pressure [Right Arm] O2 Sat by Pulse 91 L Oximetry (%) 01/15/19 01/15/19 05:50 06:15 Temperature Pulse Rate Pulse Rate [ 105 H 107 H Apical] Respiratory 20 Rate Blood Pressure Blood Pressure 68/38 L 87/53 L [Right Arm] O2 Sat by Pulse 99 Oximetry (%) GENERAL: A&Ox3, no acute distress EYES: L sided cataract, EOMI ENT: Moist mucus membranes, pallor of mucus membranes NECK: No JVD noted LUNGS: CTA, no wheezes HEART: tachycardic and regular rhythm, systolic murmur auscultated on exam ABDOMEN: Soft but distended, nontender, BS present MUSCULOSKELETAL: No CVA Tenderness EXTREMITIES: 2+ pulses, no edema. NEUROLOGICAL: Cranial nerves II-XII intact. Laboratory Results - last 24 hr 01/15/19 01/15/19 01/15/19 05:10 05:10 05:15 WBC 11.0 H RBC 2.67 L Hgb 7.2 L Hct 22.4 L D MCV 84.1 MCH 27.0 D MCHC 32.1 RDW 19.4 H Plt Count 188 D MPV 9.3 Absolute Neuts (auto) 8.6 H Neutrophils % 78.3 Lymphocytes % 16.6 D Monocytes % 4.9 Eosinophils % 0.1 Basophils % 0.1 Nucleated RBC % 0 PT with INR INR PTT (Actin FS) D-Dimer Anticoagulation Therapy No Result Required. Puncture Site No Result Required. ABG pH 7.50 H ABG pCO2 at Pt Temp 33.2 L ABG pO2 at Pt Temp 144 H ABG HCO3 25.5 ABG O2 Sat (Measured) 99.3 H ABG O2 Content 14.5 L ABG Base Excess 2.8 H Graeme Test No Result Required. Carboxyhemoglobin 1.6 Methemoglobin 0.1 O2 Delivery Device No Result Required. Oxygen Flow Rate No Result Required. Vent Mode No Result Required. Vent Rate No Result Required. Mechanical Rate No Result Required. Pressure Support Vent No Result Required. Sodium Potassium Chloride Carbon Dioxide Anion Gap BUN Creatinine Creat Clearance w eGFR Random Glucose Lactic Acid Calcium Total Bilirubin AST ALT Alkaline Phosphatase Troponin I B-Natriuretic Peptide Total Protein Albumin Stool Occult Blood Positive Blood Type Antibody Screen Crossmatch 01/15/19 01/15/19 01/15/19 05:15 05:15 05:15 WBC RBC Hgb Hct MCV MCH MCHC RDW Plt Count MPV Absolute Neuts (auto) Neutrophils % Lymphocytes % Monocytes % Eosinophils % Basophils % Nucleated RBC % PT with INR 12.70 INR 1.08 PTT (Actin FS) 23.6 L D-Dimer Anticoagulation Therapy Puncture Site ABG pH ABG pCO2 at Pt Temp ABG pO2 at Pt Temp ABG HCO3 ABG O2 Sat (Measured) ABG O2 Content ABG Base Excess Graeme Test Carboxyhemoglobin Methemoglobin O2 Delivery Device Oxygen Flow Rate Vent Mode Vent Rate Mechanical Rate Pressure Support Vent Sodium 134 L Potassium 2.9 L* Chloride 89 L Carbon Dioxide 27 Anion Gap 18 H BUN 98 H Creatinine 3.1 H Creat Clearance w eGFR 20.08 Random Glucose 237 H Lactic Acid 6.8 H* Calcium 8.5 Total Bilirubin 0.4 AST 20 ALT 19 Alkaline Phosphatase 57 Troponin I 0.02 B-Natriuretic Peptide 745.4 H Total Protein 6.0 L Albumin 3.1 L Stool Occult Blood Blood Type Antibody Screen Crossmatch 01/15/19 01/15/19 01/15/19 05:15 05:15 06:07 WBC RBC Hgb Hct MCV MCH MCHC RDW Plt Count MPV Absolute Neuts (auto) Neutrophils % Lymphocytes % Monocytes % Eosinophils % Basophils % Nucleated RBC % PT with INR INR PTT (Actin FS) D-Dimer 250 Anticoagulation Therapy Puncture Site ABG pH ABG pCO2 at Pt Temp ABG pO2 at Pt Temp ABG HCO3 ABG O2 Sat (Measured) ABG O2 Content ABG Base Excess Graeme Test Carboxyhemoglobin Methemoglobin O2 Delivery Device Oxygen Flow Rate Vent Mode Vent Rate Mechanical Rate Pressure Support Vent Sodium Potassium Chloride Carbon Dioxide Anion Gap BUN Creatinine Creat Clearance w eGFR Random Glucose Lactic Acid Calcium Total Bilirubin AST ALT Alkaline Phosphatase Troponin I B-Natriuretic Peptide Cancelled Total Protein Albumin Stool Occult Blood Blood Type A POSITIVE Antibody Screen Negative Crossmatch See Detail ASSESSMENT/PLAN: 68 year old male with a hx of CAD s/p CABG (2002), cardiac stent placement x3 last year on ASA/plavix, CHF w/ 15% EF, COPD, HTN, HLD, and ethanol abuse presenting to the hospital for vomiting of 1 day duration and admitted for acute gastrointestinal bleeding #Acute Gastrointestinal Bleed: patient likely has upper GI bleed and possibly variceal based on clinical history alcoholism and of vomiting dark, coffee ground matter with an acute drop in hemoglobin from baseline 10.0 to 7. Patient had recent stents placed within 1 year and is on dual antiplatelet therapy at home with ASA/Plavix -two large bore IVs -aggressively fluid resuscitate -due to patient's recent ACS with stent placement, was on dual antiplatelet therapy, will hold for now -Keep NPO -2U PRBCs ordered, will recheck CBC after 1st unit -LA 6.8 on admission, repeat now -will d/w ICU about octreotide for variceal bleed -GI on board, will likely scope in the next day or 2 after stabilization #Atrial Fibrillation: patient was admitted with a HR of 155 and in afib/RVR -echo in 05/2018 showed global hypokinesis of LV and LV dilatation with severe mitral regurg -reverted back to sinus rhythm -continue to monitor rhythm on tele -was given lopressor in ED and patient went into shock with BP 60s/30s -may need to rate control with amio or dig if BP labile -not candidate for anticoagulation due to GI bleed #Lactic Acidosis: likely due to peripheral ischemia from hypotension and GI bleed -repeat LA pending #Hypokalemia: 2.9 -replete K #Hypomagnesemia: 1.6 -replete magnesium #Coronary Artery Disease: with 3 stents and was on dual antiplatelets at home -hold antiplatelets -can continue statin #Congestive Heart Failure with Reduced Ejection Fraction: EF 15-20% with severe global hypokinesis -hold diuretics currently due to labile BP #Chronic Obstructive Pulmonary Disease: stable -not on #Hypertension: patient is hypotensive -hold antihypertensives #Hyperlipidemia: stable -continue statin #FEN -aggressive fluid resuscitation -replete potassium and magnesium -NPO #Prophylaxis -SCDs #Disposition -ICU admission Visit type - Emergency Visit Emergency Visit: Yes ED Registration Date: 01/15/19 Care time: The patient presented to the Emergency Department on the above date and was hospitalized for further evaluation of their emergent condition. - New Patient This patient is new to me today: Yes Date on this admission: 01/15/19 - Critical Care Critical Care patient: Yes Total Critical Care Time (in minutes): 45 Critical Care Statement: The care of this patient involved high complexity decision making to prevent further life threatening deterioration of the patient 's condition and/or to evaluate & treat vital organ system(s) failure or risk of failure.
[2019-01-15 08:12] LABS: MAGNESIUM 1.6 mg/dL (1.8-2.4)
--- NOTE | 2019-01-15 09:23 | CONSULT ---
Consultation: REQUESTING PROVIDER: CONSULT REQUEST: We have been asked to medically evaluate this patient for ( specify). HISTORY OF PRESENT ILLNESS: Patient is a 68 y/o male with a history of HTN, HLD, CAD s/p CABG, CHF, and COPD who presents for hematemesis. Patient had multiple episodes of dark vomiting this morning. Patient reports he also had an episode of dark vomiting last week. Patient has also been having dark stools. he drinks half a pint of alcohol a day, reporting his last drink was on tuesday. He has had a colonoscopy in the past only with polyps found. He has never had an upper endoscopy. Patient had a stent placed a few months ago and his poultry scientist has plans to place another one. Patient is on plavix and aspirin. Patient complains of dizziness, lightheadedness, and chills. Denies headache, chest pain, or shortness of breath REVIEW OF SYSTEMS: denies: fever, nausea, headache, chest pain, shortness of breath present: vomiting dark liquid, dizziness, lightheadedness, chills PHYSICAL EXAMINATION Vital Signs Temperature 95.4 F L 01/15/19 04:50 Pulse Rate 107 H 01/15/19 06:15 Respiratory Rate 20 01/15/19 05:50 Blood Pressure 87/53 L 01/15/19 06:15 O2 Sat by Pulse Oximetry (%) 99 01/15/19 05:50 GENERAL: Awake, alert, and fully oriented, in no acute distress. HEAD: Normal with no signs of trauma. EYES: Pupils equal, round and reactive to light EARS, NOSE, THROAT: dry mucous membranes LUNGS: Breath sounds equal, clear to auscultation bilaterally. No wheezes, and no crackles. No accessory muscle use. HEART: Regular rate and rhythm, slight murmur at upper sternal border ABDOMEN: Soft, nontender, not distended, normoactive bowel sounds, no guarding, no rebound, no masses. No hepatomegaly or splenomegaly. LOWER EXTREMITIES: 2+ pulses, warm, well-perfused. No calf tenderness. No peripheral edema. PSYCHIATRIC: Cooperative. Good eye contact. Appropriate mood and affect. SKIN: Warm, dry, normal turgor, no rashes or lesions noted. CBCD WBC 11.0 K/mm3 (4.0-10.0) H 01/15/19 05:15 RBC 2.67 M/mm3 (4.00-5.60) L 01/15/19 05:15 Hgb 7.2 GM/dL (11.7-16.9) L 01/15/19 05:15 Hct 22.4 % (35.4-49) L D 01/15/19 05:15 MCV 84.1 fl (80-96) 01/15/19 05:15 MCHC 32.1 g/dl (32.0-35.9) 01/15/19 05:15 RDW 19.4 % (11.9-15.9) H 01/15/19 05:15 Plt Count 188 K/MM3 (134-434) D 01/15/19 05:15 MPV 9.3 fl (7.5-11.1) 01/15/19 05:15 CMP Sodium 134 mmol/L (136-145) L 01/15/19 05:15 Potassium 2.9 mmol/L (3.5-5.1) L* 01/15/19 05:15 Chloride 89 mmol/L (98-107) L 01/15/19 05:15 Carbon Dioxide 27 mmol/L (21-32) 01/15/19 05:15 Anion Gap 18 MMOL/L (8-16) H 01/15/19 05:15 BUN 98 mg/dL (7-18) H 01/15/19 05:15 Creatinine 3.1 mg/dL (0.55-1.3) H 01/15/19 05:15 Creat Clearance w eGFR 20.08 (>60) 01/15/19 05:15 Calcium 8.5 mg/dL (8.5-10.1) 01/15/19 05:15 Total Bilirubin 0.4 mg/dL (0.2-1) 01/15/19 05:15 AST 20 U/L (15-37) 01/15/19 05:15 ALT 19 U/L (13-61) 01/15/19 05:15 Alkaline Phosphatase 57 U/L (45-117) 01/15/19 05:15 Total Protein 6.0 g/dl (6.4-8.2) L 01/15/19 05:15 Albumin 3.1 g/dl (3.4-5.0) L 01/15/19 05:15 Active Medications Chlorhexidine Gluconate (Hibiclens For Decolonization -) 1 applic TP HS ELLIE Potassium Chloride (Potassium Chloride 10 Meq Premix Ivpb -) 10 meq in 100 mls @ 100 mls/hr IVPB Q60M [facility] Stop: 01/15/19 08:59 Potassium Chloride (Potassium Chloride 10 Meq Premix Ivpb -) 10 meq in 100 mls @ 100 mls/hr IVPB Q60M ELLIE Stop: 01/15/19 09:44 Pantoprazole Sodium 80 mg/ (Sodium Chloride) 100 mls @ 10 mls/hr IVPB Q10H ELLIE Potassium Chloride (Potassium Chloride 10 Meq Premix Ivpb -) 10 meq in 100 mls @ 100 mls/hr IVPB Q60M [facility] Stop: 01/15/19 11:14 Mupirocin (Bactroban Ointment (For Decolonization) -) 1 applic NS BID [facility] Stop: 01/20/19 09:59 ASSESSMENT/PLAN: Patient is a 68 y/o male with a history of HTN, HLD, CAD s/p CABG, CHF, and COPD who presents for hematemesis likely 2/2 to upper GI bleed. Neuro - stable, A& O x3 Cardio - low BP, with tachycardia likely 2/2 to volume loss 2/2 to upper GI bleed - hx CHF, most recent Echo (05/21/18): LV systolic function severly reduced, EF 15-30 - CAD with hx CABG, recent stent, on clopidogrel and aspirin at home - hold home BP medications with low BP - patient continues to be tachycardic 2/2 to volume loss - MAP's have remained above 65, continue to monitor, if lowers will need central line and pressors Pulmonolgy - on nasal cannula - tolerating O2, maintain above 90% - duonebs prn - ? hx of COPD, no active exacerbation GI - acute GI bleed, likely upper 2/2 to unknown source, cannot rule out variceal bleed with alcohol hx - NPO - protonix drip, octreotide drip - to likely need EGD, discussed with GI will do when more stable and give another day for washout of plavix - spoke with Dr Zurita, GI intervention first - patient to receive two units, hold all AC - if patient becomes hypotensive or map drops below 65 can start pressors - patient continuing to have dark stools Renal - OLIMPIA, likely 2/2 to GI bleed and ATN from volume loss - fluid recusitation, has received 3L of NS - if continues to be hypotensive, place hooks for more accurate I's & O's ID - afebrile - r/o infectious source with cx - Ceftriaxone 1 gm daily, emperic coverage Endo - stable FEN - received 500 mL bolus in ED - NPO for possible scope - Mg given for repletion and will follow up - potassium repleted, will follow up afternoon recheck of labs Dispo: We will continue to follow the patient. Thank you for this consultative opportunity. Visit type - Emergency Visit Emergency Visit: Yes ED Registration Date: 01/15/19 Care time: The patient presented to the Emergency Department on the above date and was hospitalized for further evaluation of their emergent condition. - New Patient This patient is new to me today: Yes Date on this admission: 01/15/19 - Critical Care Critical Care patient: Yes Total Critical Care Time (in minutes): 45 Critical Care Statement: The care of this patient involved high complexity decision making to prevent further life threatening deterioration of the patient 's condition and/or to evaluate & treat vital organ system(s) failure or risk of failure.
[2019-01-15] MEDS ORDERED: MUPIROCIN 2% TOPICAL OINTMENT FOR DECOLONIZATION NS SCH (10:00)
--- NOTE | 2019-01-15 10:56 | CON.CARD ---
Consult Consult Specialty:: Cardiology Reason for Consultation:: gi bleed s/p PCI - History of Present Illness History of Present Illness: Patient is a 68 y/o male with a history of HTN, HLD, CAD s/p CABG, CHF, and COPD who presents for hematemesis. Patient had multiple episodes of dark vomiting this morning. Patient reports he also had an episode of dark vomiting last week. Patient has also been having dark stools. he drinks half a pint of alcohol a day, reporting his last drink was on tuesday. He has had a colonoscopy in the past only with polyps found. He has never had an upper endoscopy. PCI LAD Sep 2018 - Past Medical History Cardio/Vascular: Yes: CAD (s/p CABG and biologic valve replacement [facility] [place] 2002. NO infarctions. 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 History of Recent Travel: No Home Medications - Allergies Allergies/Adverse Reactions: Allergies Allergy/AdvReac Type Severity Reaction Status Date / Time No Known Allergies Allergy Verified 05/20/18 11:37 - Home Medications Home Medications: Ambulatory Orders Allopurinol [Zyloprim -] 300 mg PO DAILY 05/20/18 Aspirin [ASA -] 81 mg PO DAILY tab.chew 05/31/18 Clopidogrel Bisulfate [Plavix -] 75 mg PO DAILY tablet 05/31/18 Atorvastatin Ca [Lipitor] 40 mg PO HS 01/15/19 Furosemide [Lasix -] 40 mg PO DAILY 01/15/19 Isosorbide Mononitrate [Isosorbide Mononitrate ER] 30 mg PO DAILY 01/15/19 Lisinopril 5 mg PO DAILY 01/15/19 Metoprolol Tartrate [Lopressor -] 25 mg PO DAILY 01/15/19 Spironolactone 12.5 mg PO DAILY 01/15/19 Family Disease History - Family Disease History Family Disease History: Heart Disease: Mother ( [place] age 52), Other: Father ( CVA age 54) Review of Systems - Review of Systems Constitutional: reports: No Symptoms Eyes: reports: No Symptoms HENT: reports: No Symptoms Neck: reports: No Symptoms Cardiovascular: reports: No Symptoms Gastrointestinal: reports: Melena, Vomiting Blood Genitourinary: reports: No Symptoms Breasts: reports: No Symptoms Reported Musculoskeletal: reports: No Symptoms Integumentary: reports: No Symptoms Neurological: reports: No Symptoms Endocrine: reports: No Symptoms Hematology/Lymphatic: reports: No Symptoms Psychiatric: reports: No Symptoms Vital Signs: Vital Signs Temperature 95.4 F L 01/15/19 04:50 Pulse Rate 107 H 01/15/19 06:15 Respiratory Rate 20 01/15/19 05:50 Blood Pressure 87/53 L 01/15/19 06:15 O2 Sat by Pulse Oximetry (%) 99 01/15/19 05:50 Constitutional: Yes: Well Nourished, No Distress, Calm Eyes: Yes: WNL, Conjunctiva Clear, EOM Intact HENT: Yes: WNL, Atraumatic, Normocephalic Neck: Yes: WNL, Supple, Trachea Midline Respiratory: Yes: WNL, Regular, CTA Bilaterally Gastrointestinal: Yes: WNL, Normal Bowel Sounds Renal/: Yes: WNL Cardiovascular: Yes: WNL, Regular Rate and Rhythm Musculoskeletal: Yes: WNL Extremities: Yes: WNL Integumentary: Yes: WNL Neurological: Yes: WNL, Alert, Oriented ...Motor Strength: WNL Psychiatric: Yes: WNL, Alert, Oriented - Other Data Labs, Other Data: CBC, BMP 01/15/19 05:15 01/15/19 05:15 INR, PTT INR 1.08 (0.83-1.09) 01/15/19 05:15 Troponin, BNP 01/15/19 01/15/19 05:15 05:15 Troponin I 0.02 B-Natriuretic Peptide 745.4 H Cancelled Troponin, BNP 01/15/19 01/15/19 05:15 05:15 Troponin I 0.02 B-Natriuretic Peptide 745.4 H Cancelled Assessment/Plan 68 y/o male with a history of HTN, HLD, CAD s/p CABG, CHF, and COPD who presents for hematemesis. Patient had multiple episodes of dark vomiting this morning. Patient reports he also had an episode of dark vomiting last week. Patient has also been having dark stools. he drinks half a pint of alcohol a day , reporting his last drink was on tuesday. He has had a colonoscopy in the past only with polyps found. He has never had an upper endoscopy. PCI LAD Sep 2018 jessica hypokalemia Plan prbc transfussion GI w/u hold dapt nephrology eval IVF will f/u cc time spent 70 min
--- NOTE | 2019-01-15 11:32 | CON.GI ---
Consult Consult Specialty:: Gastroenterology Reason for Consultation:: Coffee ground emesis - History of Present Illness History of Present Illness: 68yo male h/o CAD s/p CABG, recent PCI (09/2018) on asa/plavix, CHF, and COPD presenting with coffee ground emesis and dark stools x 3-4 days. Pt reports multiple episodes of dark vomitus since Tuesday night with dark stools up to 3-4 episodes daily per pt. Denies abdominal pain, fever/chills. Pt reports drinking half a pint of gin daily (heavier previously), reporting his last drink was on tuesday. He reports prior colonoscopy with polyps found ( details unclear, report not currently available). Denies prior EGD. No known h/ o liver disease. No known family h/o GI malignancy. Pt found to be anemic, hypotensive and hypokalemic requiring MICU monitoring. Started on PPI and octreotide infusions. Previous labs reviewed, Hb ~11-12 in 2017. Last dose on asa and plavix was last night prior to admission per pt. - History Source History Provided By: Patient Limitations to Obtaining History: No Limitations - Past Medical History Cardio/Vascular: Yes: CAD (s/p CABG and biologic valve replacement [facility] [place]. NO infarctions. 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 History of Recent Travel: No Home Medications - Allergies Allergies/Adverse Reactions: Allergies Allergy/AdvReac Type Severity Reaction Status Date / Time No Known Allergies Allergy Verified 05/20/18 11:37 - Home Medications Home Medications: Ambulatory Orders Allopurinol [Zyloprim -] 300 mg PO DAILY 05/20/18 Aspirin [ASA -] 81 mg PO DAILY tab.chew 05/31/18 Clopidogrel Bisulfate [Plavix -] 75 mg PO DAILY tablet 05/31/18 Atorvastatin Ca [Lipitor] 40 mg PO HS 01/15/19 Furosemide [Lasix -] 40 mg PO DAILY 01/15/19 Isosorbide Mononitrate [Isosorbide Mononitrate ER] 30 mg PO DAILY 01/15/19 Lisinopril 5 mg PO DAILY 01/15/19 Metoprolol Tartrate [Lopressor -] 25 mg PO DAILY 01/15/19 Spironolactone 12.5 mg PO DAILY 01/15/19 Family Disease History - Family Disease History Family Disease History: Heart Disease: Mother ( [place] age 52), Other: Father ( CVA age 54) Review of Systems - Review of Systems Constitutional: reports: No Symptoms Cardiovascular: reports: No Symptoms Respiratory: reports: No Symptoms Gastrointestinal: reports: No Symptoms, Melena, Vomiting Physical Exam-GI Vital Signs: Vital Signs Temperature 95.4 F L 01/15/19 04:50 Pulse Rate 107 H 01/15/19 06:15 Respiratory Rate 20 01/15/19 05:50 Blood Pressure 87/53 L 01/15/19 06:15 O2 Sat by Pulse Oximetry (%) 99 01/15/19 05:50 Constitutional: Yes: Well Nourished, No Distress Cardiovascular: Yes: WNL, Regular Rate and Rhythm Respiratory: Yes: WNL, Regular, CTA Bilaterally Gastrointestinal Inspection: Yes: WNL ...Palpate: Yes: Other (abd soft, nt, nd) ...Rectal Exam: Yes: Other (small amount melanotic stool on exam (pt just had bm )) Labs: CBC, BMP 01/15/19 05:15 01/15/19 05:15 INR, PTT INR 1.08 (0.83-1.09) 01/15/19 05:15 Problem List - Problems (1) GI bleed Assessment/Plan: 68yo male h/o CAD s/p CABG, recent PCI (09/2018) on asa/plavix, CHF, and COPD presenting with coffee ground emesis and dark stools x 3-4 days with drop in Hb in setting of ETOH abuse. Pt also hypotensive, hypokalemic and acidotic on admission requiring MICU monitoring. No h/o GI bleeding or prior EGD. Dark stools though no further emesis during hospitalization. Possible etiologies including esophagitis/ulcer, gastritis, PUD, AVMs, less likely variceal bleed or portal HTN gastropathy though cannot definitively exclude. No biochemical features to suggest underlying chronic liver disease/cirrhosis. -Continue to closely monitor Hb and for evidence of bleeding -Would recommend EGD for further evaluation once adequately resuscitated and electrolytes normalized -Repeat CBC now -Continue PPI infusion -Continue octreotide gtt for now though low suspicion -Hold ASA/plavix if ok from cardiac standpoint and obtain cardiac clearance if possible prior to EGD -Monitor and replete electrolytes as needed -Keep NPO -GI will follow closely and determine timing of EGD pending above Discussed with MICU team Code(s): K92.2 - GASTROINTESTINAL HEMORRHAGE, UNSPECIFIED Qualifiers: GI bleed type/associated pathology: unspecified gastrointestinal hemorrhage type Qualified Code(s): K92.2 - Gastrointestinal hemorrhage, unspecified
[2019-01-15] MEDS ORDERED: PT OWN MED DRAWER 7, Y5N ONE ×2 (11:38→15:46)
--- NOTE | 2019-01-15 11:52 | PN ---
Teaching Attending Note Name of Resident: Gurpreet Asher ATTENDING PHYSICIAN STATEMENT I saw and evaluated the patient. I reviewed the resident's note and discussed the case with the resident. I agree with the resident's findings and plan as documented. SUBJECTIVE:67 yo M with PMHx of CAD s/p CABG (2002) and cardiac stents 2018, systolic CHF, active heavy smoker x35 years, COPD, HTN, HLD c/o nausea and vomiting. vomited dark material 5x yesterday and started feeling short of breath due to it which prompted him to the ER. on further questioning he has been having dark stools for the past 2 weeks which he did not see a doctor about. states prior to this he has been in normal state of health with no medication changes. had 3 cardiac stents placed in May after his last hospitalization with plans to place 1 more in the near future. denies NSAID use. denies CP, fever, chills, abdominal pain, C/D. took all his medications last night Had colonoscopy a year ago and reports it as normal OBJECTIVE: Last Vital Signs Temp Pulse Resp BP Pulse Ox 97.4 F L 94 H 19 92/70 100 01/15/19 07:30 01/15/19 08:48 01/15/19 08:48 01/15/19 08:48 01/15/19 08:48 Intake & Output 01/12/19 01/13/19 01/14/19 01/15/19 23:59 23:59 23:59 23:59 Weight 153 lb General Lethargic HEENT pale conjunctiva, dry oral mucosa CV S1 S2 RRR no murmur/rub/gallop Lungs CTA anteriorly ABdomen soft NT/ND ASSESSMENT AND PLAN: 67 yo M with PMHx of CAD s/p CABG (2002), cardiac stents 2018, systolic CHF, active heavy smoker x35 years, COPD, HTN, HLD came to hospital for vomiting and found to be developing hemovolemic shock due to acute blood loss anemia suspected from upper GI bleed 1. Hypovolemic shock-SBP 40's on my arrival which improved to 110/80 when placed into trendelenberg. received 1 L IVF in the ER. blood transfusion started during my assessment but will need to be cautious with fluids given poor systolic chf patient has. obtained consent for central line placement and will start pressors if needed. repeat lactic acid. 2. GI bleed- liekly upper. on duapt. denies NSAID use. NPO, IVF, PPI ggt. GI consulted and will need EGD when hemodynamically stable. trend CBC Q6H 3. acute blood loss anemia- baseline Hgb 11. 1st unit PRBC started. will trend Hgb Q6H, transfuse as needed. goal Hgb >9 4. Severe hypokalemia- KCL 10meq x3. will repeat later and give more as needed. check Mg 5. OLIMPIA- due to hypoperfusion. will insert hooks. monitor I&O closely. avoid nephrotoxic agents 6. CAD s/p CABG and stents recently placed- trop neg x1. cardio consulted. will hold DUAPT at this time 7. systolic CHF- no signs of volume overload. will need to monitor closely during volume resuscitation. hold diuretics/statin. 8. HTN- currently hypotensive. hold oral agents 9. COPD- no signs of exacerbation. 10. dyslipidemia- hold statins 11. DVT ppx- SCD. hold pharmacologic anticoagulation 12. MICU monitoring. will need central line placement adn close monitoring The care of this patient involved high complexity decision making to prevent further life threatening deterioration of the patient's condition and/or to evaluate & treat vital organ system(s) failure or risk of failure. 50 mins
[2019-01-15] MEDS: PANTOPRAZOLE SODIUM 80 MG in SODIUM CHLORIDE 100 ML IVPB SCH ×2 (12:00→22:36)
[2019-01-15] MEDS: MUPIROCIN 2% TOPICAL OINTMENT FOR DECOLONIZATION NS SCH ×2 (12:16→22:37)
--- NOTE | 2019-01-15 13:27 | PN ---
Teaching Attending Note Name of Resident: Sparkle Nguyễn ATTENDING PHYSICIAN STATEMENT I saw and evaluated the patient. I reviewed the resident's note and discussed the case with the resident. I agree with the resident's findings and plan as documented. SUBJECTIVE: Pt seen and examined in the ICU. Hypotensive this AM, being transfused PRBC. Denies shortness of breath or chest pain. No abdominal pain. OBJECTIVE: Vital Signs Period Temp Pulse Resp BP Sys/Reyes Pulse Ox Last 24 Hr 95.4 F-97.9 F 94-165 14-38 68-118/38-88 91-100 Intake & Output 01/12/19 01/13/19 01/14/19 01/15/19 23:59 23:59 23:59 23:59 Weight 75.296 kg Gen: mildly tachypneic at rest Heart: RRR Lung: decreased breath sounds at the bases Abd: soft, nontender Ext: no edema, pale nailbeds CBC, BMP 01/15/19 05:15 01/15/19 05:15 Active Medications Chlorhexidine Gluconate (Hibiclens For Decolonization -) 1 applic TP HS ELLIE Pantoprazole Sodium 80 mg/ (Sodium Chloride) 100 mls @ 10 mls/hr IVPB Q10H ELLIE Octreotide Acetate 1,200 mcg/ (Dextrose) 500 mls @ 20.83 mls/hr IVPB Q24H ELLIE; Protocol Ceftriaxone Sodium 1 gm/ (Dextrose) 50 mls @ 100 mls/hr IVPB DAILY ELLIE; Protocol Mupirocin (Bactroban Ointment (For Decolonization) -) 1 applic NS BID ELLIE Stop: 01/20/19 09:59 Last Admin: 01/15/19 12:16 Dose: 1 applic ASSESSMENT AND PLAN: GI Bleed Likely Upper Acute Blood Loss Anemia Acute Kidney Injury CAD s/p CABG and recent stents Severe LV Systolic Dysfunction COPD HTN Hyperlipidemia Alcohol Abuse - monitor H/H - transfuse as needed - protonix gtt - start octreotide gtt - empiric antibiotics - IVF boluses as needed - if remains hypotensive after transfusions, will start pressor support - monitor urine output, creatinine - NPO - GI eval for endoscopy - inhaled bronchodilators - O2 to keep spO2 >90% - DVT prophylaxis - continue ICU monitoring critical care time spent in reviewing chart, evaluating patient and formulating plan 40 min
[2019-01-15] MEDS: SODIUM CHLORIDE 1,000 ML IV SCH (14:43)
[2019-01-15] MEDS: OCTREOTIDE ACETATE 1,200 MCG in DEXTROSE 5%-WATER - 488 ML IVPB SCH (14:43)
[2019-01-15] MEDS ORDERED: ALBUTEROL SO4 2.5/IPRATROPIUM 0.5 INH SOL 3 ML VIAL.NEB. NEB PRN (14:46)
[2019-01-15] MEDS ORDERED: SODIUM CHLORIDE 1,000 ML IV STA (14:47)
[2019-01-15 15:44] LABS: HEMATOCRIT 20.1 % (35.4-49); MCH 27.5 pg (25.7-33.7); MCHC 31.8 g/dl (32.0-35.9); MEAN CELL VOLUME 86.6 fl (80-96); MEAN PLT VOLUME 9.6 fl (7.5-11.1); PLATELET COUNT 132 K/MM3 (134-434); RBC 2.32 M/mm3 (4.00-5.60); RDW 17.3 % (11.9-15.9); WHITE BLOOD COUNT 13.6 K/mm3 (4.0-10.0)
--- NOTE | 2019-01-15 15:46 | CONSULT ---
Consult Consult Specialty:: General Surgery Referred by:: Sparkle Nguyễn Reason for Consultation:: GI bleeding - History of Present Illness Chief Complaint: black vomit and black stool History of Present Illness: 68yo M alcoholic smoker, with HTN, HLD, CAD, CHF, s/p CABG, valve replacement and multiple coronary stents (last in September) on ASA/Plavix, admitted through ER early this am with black vomit and black diarrheal stool for 2-3 days, associated with no nausea, no abdominal pain, no MARQUEZ or dizziness (only brief/"5 seconds" of weakness first thing in morning), and no f/c. He reports similar episode about 3 weeks ago, when he had diarrhea after having eaten ziti/sauce, which resolved on its own. He "gave up" eating sauces a while ago, and thought that it didn't agree with him. He used to smoke 1/2ppd till 6 months ago, and now only smokes maybe a couple cigarettes a week. He normally drinks about a half pint of gin every night, last time was Tuesday. GI has seen patient, surgery is asked to assess. In the ER, he was noted to have Hb 7.2, low Na, Cl, hypokalemia 2.9, lactate 6.8 , normal coags, BUN/Cr 98/3.1, Albumin 3.1, Mag 1.6, BNP only 745. He was given some IV fluids, and has had one unit PRBC transfused. He is on protonix and octreotide drips with IVF now. Labs just repeated, Hb back at 6.4, chem pending including repeat lactate. He is making urine by condom cath. Just had another melanotic black liquid stool in bedpan. He is seen and examined in ICU, daughter came in during exam. He reports no abdominal pain, but pain in his left wrist where his IV is. BP 84/71 HR 114, sats difficulty picking up on cold hand, at least mid-80s on NC O2. - History Source History Provided By: Patient Limitations to Obtaining History: No Limitations - Past Medical History Cardio/Vascular: Yes: CAD (s/p CABG and biologic valve replacement [facility] [place]. NO infarctions. ), CHF, HTN, Hyperlipdemia Gastrointestinal: Yes: Other (multiple colon polyps) Psych: Yes: Addictions ([place]) Rheumatology: Yes: Gout - Past Surgical History Past Surgical History: Yes[facility]oscopy, Stent (multiple cardiac - at least 3, last in 10/07). 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 Travel: No Home Medications - Allergies Allergies/Adverse Reactions: Allergies Allergy/AdvReac Type Severity Reaction Status Date / Time No Known Allergies Allergy Verified 05/20/18 11:37 - Home Medications Home Medications: Ambulatory Orders Allopurinol [Zyloprim -] 300 mg PO DAILY 05/20/18 Aspirin [ASA -] 81 mg PO DAILY tab.chew 05/31/18 Clopidogrel Bisulfate [Plavix -] 75 mg PO DAILY tablet 05/31/18 Atorvastatin Ca [Lipitor] 40 mg PO HS 01/15/19 Furosemide [Lasix -] 40 mg PO DAILY 01/15/19 Isosorbide Mononitrate [Isosorbide Mononitrate ER] 30 mg PO DAILY 01/15/19 Lisinopril 5 mg PO DAILY 01/15/19 Metoprolol Tartrate [Lopressor -] 25 mg PO DAILY 01/15/19 Spironolactone 12.5 mg PO DAILY 01/15/19 Family Disease History - Family Disease History Family Disease History: Heart Disease: Mother ( [place] age 52), Other: Father ( CVA age 54) Review of Systems - Review of Systems Constitutional: reports: Other (briefly ("5 seconds") first thing in morning of weakness/lightheadedness, then it goes away). denies: Chills, Fever, Weakness Eyes: reports: Other (reading glasses). denies: Recent Change in Vision HENT: denies: Difficult Swallowing, Nasal Congestion, Throat Pain Neck: denies: Swollen Glands, Tenderness Cardiovascular: denies: Chest Pain, Palpitations Respiratory: denies: Cough, SOB Gastrointestinal: reports: Diarrhea (black), Melena, Vomiting (black). denies: Abdominal Pain, Constipation, Nausea Genitourinary: denies: Burning, Dysuria Musculoskeletal: reports: Back Pain (at times). denies: Joint Pain, Muscle Pain Integumentary: denies: Change in Color, Rash Neurological: denies: Dizziness, Headache Psychiatric: denies: Anxiety, Depression Physical Exam Vital Signs: Vital Signs Temperature 97.9 F 01/15/19 10:00 Pulse Rate 109 H 01/15/19 12:00 Respiratory Rate 15 01/15/19 12:00 Blood Pressure 85/65 L 01/15/19 12:00 O2 Sat by Pulse Oximetry (%) 93 L 01/15/19 10:00 Vital Signs Period Temp Pulse Resp BP Sys/Reyes Pulse Ox Last 24 Hr 95.4 F-97.9 F 94-165 14-38 68-118/38-88 91-100 Intake & Output 01/14/19 01/15/19 01/15/19 23:59 07:59 15:59 Output Total 600 Balance -600 Weight 153 lb 166 lb Output: Urine 600 External Catheter 600 Other: Voiding Method External Catheter Bowel Movement Yes # Bowel Movements 4 Height 5 ft 9 in 5 ft 9 in Body Mass Index (BMI) 22.6 24.5 Weight Measurement Method Built in [facility] Weight Measurement Method Estimated by Staff pt just on bedpan - ~1-2 cups of melena, black liquid stool Constitutional: Yes: Well Nourished, No Distress, Calm Eyes: Yes: Conjunctiva Clear, EOM Intact HENT: Yes: Atraumatic, Normocephalic Neck: Yes: Supple, Trachea Midline Cardiovascular: Yes: Tachycardia, Murmur. No: Pulse Irregular Respiratory: Yes: Regular, CTA Bilaterally Gastrointestinal: Yes: Soft, Distention (tympany in upper abdomen), Hypoactive Bowel Sounds. No: Tenderness, Tenderness, Epigastrium ...Rectal Exam: Yes: Deferred, Other (+ melena in bedpan) Renal/: Yes: Other (condom catheter in place - very light yellow urine in tubing, some in bag). No: CVA Tenderness - Left, CVA Tenderness - Right, Hematuria Extremities: Yes: Cool (fingers/hands). No: Cyanosis Edema: No Peripheral Pulses WNL: Yes Integumentary: Yes: Tenting. No: Jaundice, Rash Neurological: Yes: Alert, Oriented. No: Tremors Psychiatric: Yes: Alert, Oriented Labs: CBC, BMP 01/15/19 14:45 CMP Sodium 134 mmol/L (136-145) L 01/15/19 05:15 Potassium 2.9 mmol/L (3.5-5.1) L* 01/15/19 05:15 Chloride 89 mmol/L (98-107) L 01/15/19 05:15 Carbon Dioxide 27 mmol/L (21-32) 01/15/19 05:15 Anion Gap 18 MMOL/L (8-16) H 01/15/19 05:15 BUN 98 mg/dL (7-18) H 01/15/19 05:15 Creatinine 3.1 mg/dL (0.55-1.3) H 01/15/19 05:15 Creat Clearance w eGFR 20.08 (>60) 01/15/19 05:15 Random Glucose 237 mg/dL (74-106) H 01/15/19 05:15 Lactic Acid 6.8 mmol/L (0.4-2.0) H* 01/15/19 05:15 Calcium 8.5 mg/dL (8.5-10.1) 01/15/19 05:15 Magnesium 1.6 mg/dL (1.8-2.4) L 01/15/19 05:15 Total Bilirubin 0.4 mg/dL (0.2-1) 01/15/19 05:15 AST 20 U/L (15-37) 01/15/19 05:15 ALT 19 U/L (13-61) 01/15/19 05:15 Alkaline Phosphatase 57 U/L (45-117) 01/15/19 05:15 Troponin I 0.02 ng/ml (0.00-0.05) 01/15/19 05:15 B-Natriuretic Peptide 745.4 pg/ml (5-125) H 01/15/19 05:15 Total Protein 6.0 g/dl (6.4-8.2) L 01/15/19 05:15 Albumin 3.1 g/dl (3.4-5.0) L 01/15/19 05:15 INR, PTT INR 1.08 (0.83-1.09) 01/15/19 05:15 PTT normal Hb down from 7.2 after 1 unit PRBC Imaging - Results Chest X-ray: Report Reviewed, Image Reviewed (image reviewed - portable film; no active process, no vascular congestion) Problem List - Problems (1) GI bleed Assessment/Plan: admitted to ICU NPO/IVF - needs fluid and blood resuscitation trend labs monitor UOP, strict I/Os protonix drip as per gi octreotide drip noted hold asa/plavix/anticoagulants agree with endoscopy by GI when resuscitated, possible colonoscopy will remain available pending localization of bleeding and hopefully control by GI discussed with ICU team This patient is critically ill. Time spent reviewing chart, examining patient, talking with providers and/or family and documentation is 40 minutes. Code(s): K92.2 - GASTROINTESTINAL HEMORRHAGE, UNSPECIFIED Qualifiers: GI bleed type/associated pathology: melena Qualified Code(s): K92.1 - Melena (2) Anemia due to GI blood loss Assessment/Plan: transfuse PRBC to keep Hb at level per cardiology - presume at least 8, possibly 10 Code(s): D50.0 - IRON DEFICIENCY ANEMIA SECONDARY TO BLOOD LOSS (CHRONIC) (3) Hypovolemia due to hemorrhage Assessment/Plan: IV fluid (and blood product) resuscitation with end goals of resolution of tachycardia, hypotension, adequate UOP no evidence of pulmonary congestion on CXR, BNP relatively low given his history endoscopy per GI for possible control of bleeding and identification of source Code(s): E86.1 - HYPOVOLEMIA; R58 - HEMORRHAGE, NOT ELSEWHERE CLASSIFIED (4) Hypokalemia Assessment/Plan: repleted already - monitor closely K+ likely to rise with blood transfusions Code(s): E87.6 - HYPOKALEMIA (5) Acute prerenal azotemia Code(s): R79.89 - OTHER SPECIFIED ABNORMAL FINDINGS OF BLOOD CHEMISTRY (6) Prerenal acute renal failure Assessment/Plan: rehydration, trend labs Code(s): N17.9 - ACUTE KIDNEY FAILURE, UNSPECIFIED (7) Alcohol addiction Assessment/Plan: counseled regarding need for complete cessation pt receptive - states he plans to quit with daughter's help Code(s): F10.20 - ALCOHOL DEPENDENCE, UNCOMPLICATED Qualifiers: Substance use status: uncomplicated Qualified Code(s): F10.20 - Alcohol dependence, uncomplicated (8) HTN (hypertension) Assessment/Plan: currently hypotensive Code(s): I10 - ESSENTIAL (PRIMARY) HYPERTENSION Qualifiers: Hypertension type: essential hypertension Qualified Code(s): I10 - Essential (primary) hypertension (9) CAD (coronary artery disease) Assessment/Plan: holding asa/plavix cardiology consulted s/p CABG, valve replacement s/p cardiac stents Code(s): I25.10 - ATHSCL HEART DISEASE OF [place] CORONARY ARTERY W/O ANG PCTRS Qualifiers: Coronary Disease-Associated Artery/Lesion type: unspecified vessel or lesion type [place] vs. transplanted heart: [place] heart Associated angina: without angina Qualified Code(s): I25.10 - Atherosclerotic heart disease of [place] coronary artery without angina pectoris (10) S/P coronary artery stent placement Code(s): Z95.5 - PRESENCE OF CORONARY ANGIOPLASTY IMPLANT AND GRAFT (11) Chronic combined systolic and diastolic CHF, NYHA class 3 Assessment/Plan: no evidence of active decompensated failure last EF quite low per chart cardiology on board Code(s): I50.42 - CHRONIC COMBINED SYSTOLIC AND DIASTOLIC HRT FAIL
[2019-01-15 15:48] LABS: HEMOGLOBIN 6.4 GM/dL (11.7-16.9)
[2019-01-15 16:12] LABS: ANION GAP 10 MMOL/L (8-16); BLOOD UREA NITROGEN 101 mg/dL (7-18); CALCIUM 7.6 mg/dL (8.5-10.1); CHLORIDE 106 mmol/L (98-107); CO2 23 mmol/L (21-32); CREATININE 2.1 mg/dL (0.55-1.3); GLUCOSE,RANDOM 108 mg/dL (74-106); MAGNESIUM 1.9 mg/dL (1.8-2.4); POTASSIUM 5.1 mmol/L (3.5-5.1); SODIUM 139 mmol/L (136-145)
[2019-01-15] MEDS: CEFTRIAXONE 1 GM in DEXTROSE 5%-WATER - 50 ML IVPB SCH (16:16)
[2019-01-15] MEDS: CHLORHEXIDINE GLUCONATE 4% CLEANSER FOR DECOLONIZATION TP SCH (22:37)
[2019-01-15 22:47] LABS: BASO % 0.2 % (0-2.0); EOS % 0.1 % (0-4.5); HEMATOCRIT 26.1 % (35.4-49); HEMOGLOBIN 8.7 GM/dL (11.7-16.9); LYMPH % 13.9 % (8-40); MCH 27.6 pg (25.7-33.7); MCHC 33.3 g/dl (32.0-35.9); MEAN CELL VOLUME 82.9 fl (80-96); MEAN PLT VOLUME 9.3 fl (7.5-11.1); MONO % 9.4 % (3.8-10.2); NEUT % 76.4 % (42.8-82.8); PLATELET COUNT 107 K/MM3 (134-434); RBC 3.14 M/mm3 (4.00-5.60); RDW 16.5 % (11.9-15.9); WHITE BLOOD COUNT 11.8 K/mm3 (4.0-10.0)
[2019-01-16] MEDS: SODIUM CHLORIDE 1,000 ML IV SCH ×3 (06:14→21:22)
[2019-01-16 06:51] LABS: HEMATOCRIT 24.7 % (35.4-49); HEMOGLOBIN 8.3 GM/dL (11.7-16.9); MCH 27.8 pg (25.7-33.7); MCHC 33.8 g/dl (32.0-35.9); MEAN CELL VOLUME 82.3 fl (80-96); MEAN PLT VOLUME 9.4 fl (7.5-11.1); PLATELET COUNT 114 K/MM3 (134-434); RDW 16.7 % (11.9-15.9); WHITE BLOOD COUNT 10.1 K/mm3 (4.0-10.0)
[2019-01-16 08:34] LABS: ALBUMIN 2.7 g/dl (3.4-5.0); ALK PHOS 46 U/L (45-117); ANION GAP 5 MMOL/L (8-16); BILIRUBIN,TOTAL 1.1 mg/dL (0.2-1); BLOOD UREA NITROGEN 72 mg/dL (7-18); CHLORIDE 111 mmol/L (98-107); CO2 22 mmol/L (21-32); CREATININE 1.6 mg/dL (0.55-1.3); GLUCOSE,RANDOM 140 mg/dL (74-106); MAGNESIUM 1.8 mg/dL (1.8-2.4); PHOSPHOROUS 1.6 mg/dL (2.5-4.9); POTASSIUM 4.7 mmol/L (3.5-5.1); SGOT/AST 16 U/L (15-37); SGPT/ALT 15 U/L (13-61); SODIUM 139 mmol/L (136-145); TOT PROT 5.3 g/dl (6.4-8.2)
[2019-01-16] MEDS: KCL 10 MEQ IVPB 10 MEQ/100 ML INFUS.BAG IVPB SCH ×3 (09:14)
[2019-01-16] MEDS: PANTOPRAZOLE SODIUM 80 MG in SODIUM CHLORIDE 100 ML IVPB SCH ×4 (09:15→21:23)
[2019-01-16] MEDS ORDERED: cefTRIAXone SODIUM 1 GM VIAL ONE (10:04)
[2019-01-16] MEDS ORDERED: DEXTROSE 5%-WATER - 50 ML IVPB ONE (10:04)
[2019-01-16] MEDS: CEFTRIAXONE 1 GM in DEXTROSE 5%-WATER - 50 ML IVPB SCH (10:07)
[2019-01-16] MEDS: MUPIROCIN 2% TOPICAL OINTMENT FOR DECOLONIZATION NS SCH ×2 (10:07→21:23)
[2019-01-16] MEDS ORDERED: PT OWN MED DRAWER 7, Y5N ONE (10:12)
--- NOTE | 2019-01-16 11:44 | PN ---
Teaching Attending Note Name of Resident: Anup Sheikh ATTENDING PHYSICIAN STATEMENT I saw and evaluated the patient. I reviewed the resident's note and discussed the case with the resident. I agree with the resident's findings and plan as documented. SUBJECTIVE:asymptomatic. had episode of melena overnight. no more vomiting. denies CP, SOB, fever, chills, N/V OBJECTIVE: Last Vital Signs Temp Pulse Resp BP Pulse Ox 98.2 F 110 H 21 H 110/80 95 01/16/19 08:00 01/16/19 08:00 01/16/19 08:00 01/16/19 08:00 01/16/19 09:00 General Lethargic HEENT pale conjunctiva, dry oral mucosa CV S1 S2 RRR no murmur/rub/gallop Lungs CTA anteriorly ABdomen soft NT/ND ASSESSMENT AND PLAN: 67 yo M with PMHx of CAD s/p CABG (2002), cardiac stents 2018, systolic CHF, active heavy smoker x35 years, COPD, HTN, HLD came to hospital for vomiting and found to be developing hemovolemic shock due to acute blood loss anemia suspected from upper GI bleed 1. Hypovolemic shock-now resolved. adequately volume resuscitated. did not require pressors. BP stable. cont to hold oral agents. lactic acidosis resolved 2. GI bleed- liekly upper. on duapt. denies NSAID use. no signs of bleeding. may continue to have melena for some time. Hgb stable. will need EGD, awaiting today. NPO, IVF, PPI and octreotide ggt. GI on board 3. acute blood loss anemia- received 3 units PRBC this hospital stay. hgb now stable. will monitor Q12H. transfusion if needed. 4. Severe hypokalemia- resolved 5. Hypophosphatemia- Kphos 6. OLIMPIA- due to hypoperfusion. improved. cont to monitor I&O closely. avoid nephrotoxic agents 7. CAD s/p CABG and stents recently placed- trop neg x1. cardio consulted. will hold DUAPT at this time 8. systolic CHF- no signs of volume overload. will need to monitor closely during volume resuscitation. hold diuretics/statin. 9. HTN- currently hypotensive. hold oral agents 10. COPD- no signs of exacerbation. 11. dyslipidemia- hold statins 12. DVT ppx- SCD. hold pharmacologic anticoagulation 13. MICU monitoring. The care of this patient involved high complexity decision making to prevent further life threatening deterioration of the patient's condition and/or to evaluate & treat vital organ system(s) failure or risk of failure. 41 mins
--- NOTE | 2019-01-16 11:58 | PN ---
Physical Exam: SUBJECTIVE: Patient has no complaints, stable overnight. OBJECTIVE: Vital Signs Temperature 97.6 F 01/16/19 10:00 Pulse Rate 91 H 01/16/19 10:00 Respiratory Rate 20 01/16/19 10:00 Blood Pressure 97/73 01/16/19 10:00 O2 Sat by Pulse Oximetry (%) 95 01/16/19 09:00 GENERAL: Awake, alert, and fully oriented, in no acute distress. HEAD: Normal with no signs of trauma. EYES: Pupils equal, round and reactive to light EARS, NOSE, THROAT: dry mucous membranes LUNGS: Breath sounds equal, clear to auscultation bilaterally. No wheezes, and no crackles. No accessory muscle use. HEART: Regular rate and rhythm, no murmurs heard ABDOMEN: Soft, nontender, not distended, normoactive bowel sounds, no guarding, no rebound, no masses. No hepatomegaly or splenomegaly. LOWER EXTREMITIES: 2+ pulses, warm, well-perfused. No calf tenderness. No peripheral edema. SKIN: Warm, dry, normal turgor, no rashes or lesions noted. CBCD WBC 10.1 K/mm3 (4.0-10.0) H 01/16/19 05:30 RBC 3.00 M/mm3 (4.00-5.60) L 01/16/19 05:30 Hgb 8.3 GM/dL (11.7-16.9) L 01/16/19 05:30 Hct 24.7 % (35.4-49) L 01/16/19 05:30 MCV 82.3 fl (80-96) 01/16/19 05:30 MCHC 33.8 g/dl (32.0-35.9) 01/16/19 05:30 RDW 16.7 % (11.9-15.9) H 01/16/19 05:30 Plt Count 114 K/MM3 (134-434) L 01/16/19 05:30 MPV 9.4 fl (7.5-11.1) 01/16/19 05:30 CMP Sodium 139 mmol/L (136-145) 01/16/19 07:25 Potassium 4.7 mmol/L (3.5-5.1) 01/16/19 07:25 Chloride 111 mmol/L (98-107) H 01/16/19 07:25 Carbon Dioxide 22 mmol/L (21-32) 01/16/19 07:25 Anion Gap 5 MMOL/L (8-16) L 01/16/19 07:25 BUN 72 mg/dL (7-18) H 01/16/19 07:25 Creatinine 1.6 mg/dL (0.55-1.3) H 01/16/19 07:25 Creat Clearance w eGFR 43.07 (>60) 01/16/19 07:25 Calcium 8.0 mg/dL (8.5-10.1) L 01/16/19 07:25 Total Bilirubin 1.1 mg/dL (0.2-1) H 01/16/19 07:25 AST 16 U/L (15-37) 01/16/19 07:25 ALT 15 U/L (13-61) 01/16/19 07:25 Alkaline Phosphatase 46 U/L (45-117) 01/16/19 07:25 Total Protein 5.3 g/dl (6.4-8.2) L 01/16/19 07:25 Albumin 2.7 g/dl (3.4-5.0) L 01/16/19 07:25 Active Medications Albuterol/Ipratropium (Duoneb -) 1 amp NEB Q6H PRN PRN Reason: SHORTNESS OF BREATH Chlorhexidine Gluconate (Hibiclens For Decolonization -) 1 applic TP HS ELLIE Last Admin: 01/15/19 22:37 Dose: 1 applic Pantoprazole Sodium 80 mg/ (Sodium Chloride) 100 mls @ 10 mls/hr IVPB Q10H ELLIE Last Admin: 01/16/19 09:15 Dose: Not Given Octreotide Acetate 1,200 mcg/ (Dextrose) 500 mls @ 20.83 mls/hr IVPB Q24H ELLIE; Protocol Last Admin: 01/15/19 14:43 Dose: 20.83 mls/hr Ceftriaxone Sodium 1 gm/ (Dextrose) 50 mls @ 100 mls/hr IVPB DAILY ELLIE; Protocol Last Admin: 01/16/19 10:07 Dose: 100 mls/hr Sodium Chloride (Normal Saline -) 1,000 mls @ 100 mls/hr IV ASDIR ELLIE Last Admin: 01/16/19 06:14 Dose: 100 mls/hr Mupirocin (Bactroban Ointment (For Decolonization) -) 1 applic NS BID ELLIE Stop: 01/20/19 09:59 Last Admin: 01/16/19 10:07 Dose: 1 applic ASSESSMENT/PLAN: Patient is a 68 y/o male with a history of HTN, HLD, CAD s/p CABG, CHF, and COPD who presents for hematemesis likely 2/2 to upper GI bleed. Neuro - stable, A& O x3 Cardio - Map consistently above 65, hemodynamics stable - hx CHF, most recent Echo (05/21/18): LV systolic function severly reduced, EF 15-30 - CAD with hx CABG, recent stent, on clopidogrel and aspirin at home, hold clopidogrel and aspirin - hold home BP medications with low BP - continue to monitor closely Pulmonolgy - on nasal cannula - tolerating O2, maintain above 90% - duonebs prn - ? hx of COPD, no active exacerbation GI - acute GI bleed, likely upper 2/2 to unknown source, cannot rule out variceal bleed with alcohol hx - NPO - protonix drip, octreotide drip - to likely need EGD, f/u with GI for when - spoke with Dr Zurita, GI intervention first - patient to receive three units, hold all AC - patient continuing to have dark stools - lactic acid resolved Renal - OLIMPIA, likely 2/2 to GI bleed and ATN from volume loss - continue fluids, slowly resolving ID - afebrile - r/o infectious source with cx - Ceftriaxone 2 gm daily, emperic coverage for possible SBO with alcoholism history Endo - stable FEN - NPO for possible scope - electrolytes stable - f/u repeat labs at 3 pm Dispo: f/u with GI Visit type - Emergency Visit Emergency Visit: No - New Patient This patient is new to me today: No - Critical Care Critical Care patient: Yes Total Critical Care Time (in minutes): 40 Critical Care Statement: The care of this patient involved high complexity decision making to prevent further life threatening deterioration of the patient 's condition and/or to evaluate & treat vital organ system(s) failure or risk of failure.
--- NOTE | 2019-01-16 12:58 | PN ---
Physical Exam: SUBJECTIVE: Patient seen and examined. Pt. states he feels a lot better. Per covering nurse Pt. had melena overnight but no BM since. MAP overnight was consistently in the 80s. PT. states he feels tired and sleepy. Pt. denies any nausea, dizziness, abdominal pain, shortness of breath, chest pain or numbness tingling in extremities. OBJECTIVE: Vital Signs Period Temp Pulse Resp BP Sys/Reyes Pulse Ox Last 24 Hr 97.6 F-99.1 F 91-114 15-33 68-111/27-83 93-95 GENERAL: The patient is awake, alert, and fully oriented, in no acute distress. HEAD: Normal with no signs of trauma. EYES: scleral icterus. ENT: Ears normal, nares patent, dry mucous membranes. NECK: Trachea midline, full range of motion, supple. LUNGS: Breath sounds equal, clear to auscultation bilaterally, no wheezes, no crackles, no accessory muscle use. HEART: Regular rate and rhythm, S1, S2 without murmur ABDOMEN: Soft, nontender, nondistended, normoactive bowel sounds, no guarding, no rebound EXTREMITIES: 2+ radial pulses, warm, no calf tenderness, well-perfused, no edema. NEUROLOGICAL: Normal speech, gait not observed. PSYCH: Normal mood, normal affect. SKIN: Warm, dry, normal turgor, no rashes or lesions noted Laboratory Results - last 24 hr 01/15/19 01/15/19 01/15/19 06:07 14:45 14:45 WBC 13.6 H RBC 2.32 L Hgb 6.4 L* Hct 20.1 L MCV 86.6 MCH 27.5 MCHC 31.8 L RDW 17.3 H Plt Count 132 L D MPV 9.6 Absolute Neuts (auto) Neutrophils % Lymphocytes % Monocytes % Eosinophils % Basophils % Nucleated RBC % Sodium 139 Potassium 5.1 Chloride 106 Carbon Dioxide 23 Anion Gap 10 BUN 101 H Creatinine 2.1 H Creat Clearance w eGFR 31.47 Random Glucose 108 H Hemoglobin A1c % Lactic Acid Calcium 7.6 L Phosphorus Magnesium 1.9 Total Bilirubin AST ALT Alkaline Phosphatase Total Protein Albumin Blood Type A POSITIVE Antibody Screen Negative Crossmatch See Detail 01/15/19 01/15/19 01/15/19 14:45 14:45 21:50 WBC RBC Hgb Hct MCV MCH MCHC RDW Plt Count MPV Absolute Neuts (auto) Neutrophils % Lymphocytes % Monocytes % Eosinophils % Basophils % Nucleated RBC % Sodium Potassium Chloride Carbon Dioxide Anion Gap BUN Creatinine Creat Clearance w eGFR Random Glucose Hemoglobin A1c % < 3.5 L Lactic Acid 3.9 H* 3.4 H* Calcium Phosphorus Magnesium Total Bilirubin AST ALT Alkaline Phosphatase Total Protein Albumin Blood Type Antibody Screen Crossmatch 01/15/19 01/16/19 01/16/19 21:50 05:30 07:25 WBC 11.8 H 10.1 H RBC 3.14 L 3.00 L Hgb 8.7 L 8.3 L Hct 26.1 L D 24.7 L MCV 82.9 82.3 MCH 27.6 27.8 MCHC 33.3 33.8 RDW 16.5 H 16.7 H Plt Count 107 L 114 L MPV 9.3 9.4 Absolute Neuts (auto) 9.0 H Neutrophils % 76.4 Lymphocytes % 13.9 Monocytes % 9.4 D Eosinophils % 0.1 Basophils % 0.2 Nucleated RBC % 0 Sodium 139 Potassium 4.7 Chloride 111 H Carbon Dioxide 22 Anion Gap 5 L BUN 72 H Creatinine 1.6 H Creat Clearance w eGFR 43.07 Random Glucose 140 H Hemoglobin A1c % Lactic Acid Calcium 8.0 L Phosphorus 1.6 L Magnesium 1.8 Total Bilirubin 1.1 H AST 16 ALT 15 Alkaline Phosphatase 46 Total Protein 5.3 L Albumin 2.7 L Blood Type Antibody Screen Crossmatch 01/16/19 07:25 WBC RBC Hgb Hct MCV MCH MCHC RDW Plt Count MPV Absolute Neuts (auto) Neutrophils % Lymphocytes % Monocytes % Eosinophils % Basophils % Nucleated RBC % Sodium Potassium Chloride Carbon Dioxide Anion Gap BUN Creatinine Creat Clearance w eGFR Random Glucose Hemoglobin A1c % Lactic Acid 1.6 Calcium Phosphorus Magnesium Total Bilirubin AST ALT Alkaline Phosphatase Total Protein Albumin Blood Type Antibody Screen Crossmatch Active Medications Home Medications Medication Instructions Recorded Allopurinol [Zyloprim -] 300 mg PO DAILY 05/20/18 Aspirin [ASA -] 81 mg PO DAILY tab.chew 05/31/18 Clopidogrel Bisulfate [Plavix -] 75 mg PO DAILY tablet 05/31/18 Atorvastatin Ca [Lipitor] 40 mg PO HS 01/15/19 Furosemide [Lasix -] 40 mg PO DAILY 01/15/19 Isosorbide Mononitrate [Isosorbide 30 mg PO DAILY 01/15/19 Mononitrate ER] Lisinopril 5 mg PO DAILY 01/15/19 Metoprolol Tartrate [Lopressor -] 25 mg PO DAILY 01/15/19 Spironolactone 25 mg PO DAILY 01/15/19 Current Medications Albuterol/Ipratropium (Duoneb -) 1 amp NEB Q6H PRN PRN Reason: SHORTNESS OF BREATH Chlorhexidine Gluconate (Hibiclens For Decolonization -) 1 applic TP HS [facility] Last Admin: 01/15/19 22:37 Dose: 1 applic Pantoprazole Sodium 80 mg/ (Sodium Chloride) 100 mls @ 10 mls/hr IVPB Q10H ELLIE Last Admin: 01/16/19 09:15 Dose: Not Given Octreotide Acetate 1,200 mcg/ (Dextrose) 500 mls @ 20.83 mls/hr IVPB Q24H ELLIE; Protocol Last Admin: 01/15/19 14:43 Dose: 20.83 mls/hr Ceftriaxone Sodium 1 gm/ (Dextrose) 50 mls @ 100 mls/hr IVPB DAILY ELLIE; Protocol Last Admin: 01/16/19 10:07 Dose: 100 mls/hr Sodium Chloride (Normal Saline -) 1,000 mls @ 100 mls/hr IV ASDIR ELLIE Last Admin: 01/16/19 06:14 Dose: 100 mls/hr Potassium Phosphate 30 mm/ (Dextrose) 260 mls @ 62.5 mls/hr IVPB ONCE ONE Stop: 01/16/19 18:09 Mupirocin (Bactroban Ointment (For Decolonization) -) 1 applic NS BID ELLIE Stop: 01/20/19 09:59 Last Admin: 01/16/19 10:07 Dose: 1 applic ASSESSMENT/PLAN: 68 year old male with a hx of CAD s/p CABG (2002), cardiac stent placement x3 last year on ASA/plavix, CHF w/ 15% EF, COPD, HTN, HLD, and ethanol abuse presenting to the hospital for vomiting of 1 day duration and admitted for acute gastrointestinal bleeding #Acute Gastrointestinal Bleed Based on clinical history Pt. likely has Upper GI bleed ( 2+ drinks/day, on DAPT , and coffee ground emesis) HgB dropped to 6.4 on admission from a baseline of 11-12 in 2018 (of note was up to 13-14 in prior years) c/w IVF Hold ASA and Plavix NPO s/p 3 units--> HgB now 8.3 LA wnl 6.8-->3.9-->3.4-->1.6 c/w Octreotide drip c/w Protonix drip GI consult appreciated( Dr. Avila) EGD tentatively scheduled for tomorrow for diagnostic possible therapeutic intervention #Atrial Fibrillation Echo: in 05/2018 showed: EF 15-20%, with severe global hypokinesis and LV dilatation with severe MR now in sinus rhythm c/w Tele monitoring Hold Metoprolol Can rate control with amiodarone drip if needed Hold AC in setting of GI bleed Cardiology consult (Dr. Marie) appreciated. Will resume anticoagulation/ antiplatelets agents as per Cardiology recommendations. #CAD s/p 3 stents in 09/2018 and was on dual antiplatelets at home hold antiplatelet agents hold Isosorbide mononitrate as BP has been low #CHFrEF Echo noted as above Hold Aldactone and Lasix #HTN hold Lisinopril and #HLD hold statin #FEN NS @ 100ml/hr (given Hx. of CHF and poor EF) monitor electrolytes and replete as needed( K+ and Phos repleted) NPO #Prophylaxis SCDs only #Disposition ICU- Full Code Visit type - Emergency Visit Emergency Visit: Yes ED Registration Date: 01/15/19 Care time: The patient presented to the Emergency Department on the above date and was hospitalized for further evaluation of their emergent condition. - New Patient This patient is new to me today: Yes Date on this admission: 01/15/19 - Critical Care Critical Care patient: Yes Total Critical Care Time (in minutes): 45 Critical Care Statement: The care of this patient involved high complexity decision making to prevent further life threatening deterioration of the patient 's condition and/or to evaluate & treat vital organ system(s) failure or risk of failure. - Discharge Referral Referred to [facility] Med P.C.: No
--- NOTE | 2019-01-16 13:38 | PN ---
Teaching Attending Note Name of Resident: Sparkle Nguyễn ATTENDING PHYSICIAN STATEMENT I saw and evaluated the patient. I reviewed the resident's note and discussed the case with the resident. I agree with the resident's findings and plan as documented. SUBJECTIVE: Pt seen and examined in the ICU. Feeling better. H/H stable this AM. Remains on protonix and octreotide gtts. OBJECTIVE: Vital Signs Period Temp Pulse Resp BP Sys/Reyes Pulse Ox Last 24 Hr 97.6 F-99.1 F 91-114 15-33 68-111/27-83 93-95 Intake & Output 01/13/19 01/14/19 01/15/19 01/16/19 23:59 23:59 23:59 23:59 Intake Total 1371 Output Total 600 1100 Balance -600 271 Weight 75.296 kg 65.771 kg Gen: less tachypneic Heart: RRR Lung: decreased breath sounds at the bases Abd: soft, nontender Ext: no edema CBC, BMP 01/16/19 05:30 01/16/19 07:25 Active Medications Albuterol/Ipratropium (Duoneb -) 1 amp NEB Q6H PRN PRN Reason: SHORTNESS OF BREATH Chlorhexidine Gluconate (Hibiclens For Decolonization -) 1 applic TP HS ELLIE Last Admin: 01/15/19 22:37 Dose: 1 applic Pantoprazole Sodium 80 mg/ (Sodium Chloride) 100 mls @ 10 mls/hr IVPB Q10H ELLIE Last Admin: 01/16/19 09:15 Dose: Not Given Octreotide Acetate 1,200 mcg/ (Dextrose) 500 mls @ 20.83 mls/hr IVPB Q24H ELLIE; Protocol Last Admin: 01/15/19 14:43 Dose: 20.83 mls/hr Ceftriaxone Sodium 1 gm/ (Dextrose) 50 mls @ 100 mls/hr IVPB DAILY ELLIE; Protocol Last Admin: 01/16/19 10:07 Dose: 100 mls/hr Sodium Chloride (Normal Saline -) 1,000 mls @ 100 mls/hr IV ASDIR ELLIE Last Admin: 01/16/19 06:14 Dose: 100 mls/hr Potassium Phosphate 30 mm/ (Dextrose) 260 mls @ 62.5 mls/hr IVPB ONCE ONE Stop: 01/16/19 18:09 Mupirocin (Bactroban Ointment (For Decolonization) -) 1 applic NS BID ELLIE Stop: 01/20/19 09:59 Last Admin: 01/16/19 10:07 Dose: 1 applic ASSESSMENT AND PLAN: GI Bleed Likely Upper Acute Blood Loss Anemia Acute Kidney Injury CAD s/p CABG and recent stents Severe LV Systolic Dysfunction COPD HTN Hyperlipidemia Alcohol Abuse - monitor H/H - transfuse as needed - continue protonix, octreotide gtts for now - empiric antibiotics - IVF boluses as needed - monitor urine output, creatinine - NPO - GI f/u for endoscopy - inhaled bronchodilators - O2 to keep spO2 >90% - DVT prophylaxis - continue ICU monitoring critical care time spent in reviewing chart, evaluating patient and formulating plan 35 min
[2019-01-16] MEDS ORDERED: POTASSIUM PHOSPHATE 30 MM in DEXTROSE 5%-WATER - 250 ML IVPB ONE (14:00)
--- NOTE | 2019-01-16 14:29 | EKG ---
Test Reason : Blood Pressure : / mmHG Vent. Rate : 150 BPM Atrial Rate : 156 BPM P-R Int : 128 ms QRS Dur : 090 ms QT Int : 286 ms P-R-T Axes : 000 044 094 degrees QTc Int : 451 ms SINUS TACHYCARDIA WITH PREMATURE ATRIAL COMPLEXES NONSPECIFIC ST AND T WAVE ABNORMALITY ABNORMAL ECG Confirmed by MD SEYMOUR, TY ([id number]) on 01/16/2019 2:28:41 PM Referred By: Confirmed By:TY AHUJA MD
--- NOTE | 2019-01-16 15:29 | PN.GI ---
GI Progress Note Subjective: No acute events No BM today - Objective Vital Signs: Vital Signs Temperature 97.6 F 01/16/19 12:00 Pulse Rate 87 01/16/19 14:00 Respiratory Rate 20 01/16/19 12:00 Blood Pressure 110/72 01/16/19 14:00 O2 Sat by Pulse Oximetry (%) 95 01/16/19 09:00 Constitutional: Calm Eyes: No: Sclera Icterus Respiratory: Yes: CTA Bilaterally Gastrointestinal Inspection: No: Distention ...Auscultate: Yes: Normoactive Bowel Sounds ...Palpate: Yes: Soft, Splenomegaly. No: Tenderness ...Percussion: No: Tympanitic Edema: No (No LE edema) Neurological: Yes: Alert. No: [facility] Labs: CBC, BMP 01/16/19 05:30 01/16/19 07:25 INR, PTT INR 1.08 (0.83-1.09) 01/15/19 05:15 Hepatic Panel Total Bilirubin 1.1 mg/dL (0.2-1) H 01/16/19 07:25 AST 16 U/L (15-37) 01/16/19 07:25 ALT 15 U/L (13-61) 01/16/19 07:25 Alkaline Phosphatase 46 U/L (45-117) 01/16/19 07:25 Albumin 2.7 g/dl (3.4-5.0) L 01/16/19 07:25 Problem List - Problems (1) GI bleed Assessment/Plan: Suspected UGIB: Remains hemodynamically stable Discussed upper endoscopyy with Mr. Ortiz with possible banding of varices. Plan tentatively for tomorrow. given that he is on ASA/Plavix, depending on findings therapeutics may be limited to mechanical hemostasii/injection therapy or need for therapeutics later on in week with continued holding of antiplatelet agents. Discussed potential risks of the procedure like but not limited to bleeding, perforation requiring surgery to repair, infection, sedation medication effects all of which could be potentially life threatening. Also discussed the need for endotracheal intubation if it was thought to be clinically indicated. He has agreed to the procedure. For now: NPO IV hydration PPI / Octreotide drips Repletion of Phos per primary team Monitor magnesium levels while on PPI Repeat H/H today Discussed need for complete alcohol cessation Code(s): K92.2 - GASTROINTESTINAL HEMORRHAGE, UNSPECIFIED Qualifiers: GI bleed type/associated pathology: melena Qualified Code(s): K92.1 - Melena
[2019-01-16 16:24] LABS: HEMATOCRIT 24.3 % (35.4-49); MCH 27.9 pg (25.7-33.7); MCHC 33.1 g/dl (32.0-35.9); MEAN CELL VOLUME 84.4 fl (80-96); PLATELET COUNT 123 K/MM3 (134-434); RBC 2.88 M/mm3 (4.00-5.60); RDW 17.6 % (11.9-15.9); WHITE BLOOD COUNT 8.6 K/mm3 (4.0-10.0)
[2019-01-16 17:05] LABS: ALBUMIN 2.9 g/dl (3.4-5.0); ALK PHOS 45 U/L (45-117); ANION GAP 7 MMOL/L (8-16); BILIRUBIN,TOTAL 0.6 mg/dL (0.2-1); BLOOD UREA NITROGEN 59 mg/dL (7-18); CALCIUM 8.1 mg/dL (8.5-10.1); CHLORIDE 113 mmol/L (98-107); CO2 23 mmol/L (21-32); CREATININE 1.6 mg/dL (0.55-1.3); GLUCOSE,RANDOM 139 mg/dL (74-106); POTASSIUM 5.4 mmol/L (3.5-5.1); SGOT/AST 15 U/L (15-37); SGPT/ALT 13 U/L (13-61); SODIUM 142 mmol/L (136-145); TOT PROT 5.5 g/dl (6.4-8.2)
[2019-01-16] MEDS: OCTREOTIDE ACETATE 1,200 MCG in DEXTROSE 5%-WATER - 488 ML IVPB SCH ×2 (19:01→21:22)
[2019-01-16 22:20] LABS: HEMATOCRIT 24.2 % (35.4-49); HEMOGLOBIN 8.1 GM/dL (11.7-16.9); MCH 28.2 pg (25.7-33.7); MCHC 33.5 g/dl (32.0-35.9); MEAN CELL VOLUME 84.2 fl (80-96); PLATELET COUNT 129 K/MM3 (134-434); RBC 2.88 M/mm3 (4.00-5.60); RDW 17.6 % (11.9-15.9); WHITE BLOOD COUNT 8.9 K/mm3 (4.0-10.0)
[2019-01-16] MEDS: CHLORHEXIDINE GLUCONATE 4% CLEANSER FOR DECOLONIZATION TP SCH (22:43)
--- NOTE | 2019-01-17 04:57 | PN ---
Progress Note, Physician Chief Complaint: Pt A&Ox3; denies any pain presently; no dyspnea. History of Present Illness: Mr Ortiz is a 68 year old black man with PMHx HTN, HLD, CAD s/p CABG and valve replacement in 2002, s/p DE stent LAD in 2018 (see below), severe systolic CHF with severe MR (12/2017 ECHO), chronic alcoholism, gout, who presents for evaluation of shortness of breath and vomiting. The patient is accompanied by family who assist in providing the history. They note that the patient began vomiting and experiencing shortness of breath beginning yesterday evening. They noted dark colored vomit as well as noting that the patient was slightly confused prompting his presentation to the ED for further evaluation. On presentation the patient reports nausea, fatigue and shortness of breath. He otherwise denies any fevers, chills, chest pain, abdominal pain, or changes with urination or bowel movements. s/p CABG and biologic valve replacement [facility] [place] (no reported hx [place]). s/p DE stent of LAD 09/2018 - Current Medication List Current Medications: Active Medications Albuterol/Ipratropium (Duoneb -) 1 amp NEB Q6H PRN PRN Reason: SHORTNESS OF BREATH Chlorhexidine Gluconate (Hibiclens For Decolonization -) 1 applic TP HS ELLIE Last Admin: 01/16/19 22:43 Dose: 1 applic Pantoprazole Sodium 80 mg/ (Sodium Chloride) 100 mls @ 10 mls/hr IVPB Q10H ELLIE Last Admin: 01/16/19 21:23 Dose: 10 mls/hr Octreotide Acetate 1,200 mcg/ (Dextrose) 500 mls @ 20.83 mls/hr IVPB Q24H ELLIE; Protocol Last Admin: 01/16/19 21:22 Dose: 20.83 mls/hr Ceftriaxone Sodium 1 gm/ (Dextrose) 50 mls @ 100 mls/hr IVPB DAILY ELLIE; Protocol Last Admin: 01/16/19 10:07 Dose: 100 mls/hr Sodium Chloride (Normal Saline -) 1,000 mls @ 100 mls/hr IV ASDIR ELLIE Last Admin: 01/16/19 21:22 Dose: 100 mls/hr Mupirocin (Bactroban Ointment (For Decolonization) -) 1 applic NS BID ELLIE Stop: 01/20/19 09:59 Last Admin: 01/16/19 21:23 Dose: 1 applic - Objective Vital Signs: Vital Signs Temperature 98.7 F 01/17/19 03:00 Pulse Rate 87 01/17/19 03:00 Respiratory Rate 18 01/17/19 03:00 Blood Pressure 114/76 01/17/19 03:00 O2 Sat by Pulse Oximetry (%) 95 01/16/19 22:21 Constitutional: Yes: Calm Eyes: Yes: WNL HENT: Yes: WNL Labs: CBC, BMP 01/16/19 21:56 01/16/19 16:15 INR, PTT INR 1.08 (0.83-1.09) 01/15/19 05:15 Problem List - Problems (1) Alcohol addiction Code(s): F10.20 - ALCOHOL DEPENDENCE, UNCOMPLICATED Qualifiers: Substance use status: uncomplicated Qualified Code(s): F10.20 - Alcohol dependence, uncomplicated (2) Anemia Code(s): D64.9 - ANEMIA, UNSPECIFIED Qualifiers: Anemia type: unspecified type Qualified Code(s): D64.9 - Anemia, unspecified (3) CAD (coronary artery disease) Code(s): I25.10 - ATHSCL HEART DISEASE OF [place] CORONARY ARTERY W/O ANG PCTRS Qualifiers: Coronary Disease-Associated Artery/Lesion type: unspecified vessel or lesion type [place] vs. transplanted heart: [place] heart Associated angina: without angina Qualified Code(s): I25.10 - Atherosclerotic heart disease of [place] coronary artery without angina pectoris (4) GI bleed Assessment/Plan: s/p PRBCs; f/u GI, heme w/u. Code(s): K92.2 - GASTROINTESTINAL HEMORRHAGE, UNSPECIFIED Qualifiers: GI bleed type/associated pathology: melena Qualified Code(s): K92.1 - Melena (5) S/P coronary artery stent placement Code(s): Z95.5 - PRESENCE OF CORONARY ANGIOPLASTY IMPLANT AND GRAFT (6) Acute on chronic systolic and diastolic heart failure, NYHA class 3 Assessment/Plan: Restart carvedilol 3.125 mg bid, and increase as tolerated. Lisinorpril 2.5 mg qd and sprionolactone 25 mg qd if not contraindicated from renal standpoint (f/u BUn/Cr and K+ today after fluids before starting these). F/u repeat ECHO for LVEF, valve status (severely reduced LVEF, severe MR on 2017 ECHO). Code(s): I50.43 - ACUTE ON CHRONIC COMBINED SYSTOLIC AND DIASTOLIC HRT FAIL (7) Elevated LFTs Code(s): R94.5 - ABNORMAL RESULTS OF LIVER FUNCTION STUDIES (8) Generalized weakness Code(s): R53.1 - WEAKNESS (9) Hx of CABG Code(s): Z95.1 - PRESENCE OF AORTOCORONARY BYPASS GRAFT (10) Hypoalbuminemia Code(s): E88.09 - OTH DISORDERS OF PLASMA-PROTEIN METABOLISM, NEC (11) Renal dysfunction Code(s): N28.9 - DISORDER OF KIDNEY AND URETER, UNSPECIFIED Assessment/Plan CCU time spent: 40 minutes.
[2019-01-17 06:46] LABS: HEMATOCRIT 20.5 % (35.4-49); MCH 28.2 pg (25.7-33.7); MCHC 33.8 g/dl (32.0-35.9); MEAN CELL VOLUME 83.3 fl (80-96); MEAN PLT VOLUME 8.7 fl (7.5-11.1); PLATELET COUNT 135 K/MM3 (134-434); RBC 2.46 M/mm3 (4.00-5.60); WHITE BLOOD COUNT 6.1 K/mm3 (4.0-10.0)
[2019-01-17 07:15] LABS: ALBUMIN 2.8 g/dl (3.4-5.0); ALK PHOS 45 U/L (45-117); ANION GAP 5 MMOL/L (8-16); BILIRUBIN,TOTAL 0.9 mg/dL (0.2-1); BLOOD UREA NITROGEN 39 mg/dL (7-18); CALCIUM 8.2 mg/dL (8.5-10.1); CHLORIDE 112 mmol/L (98-107); CO2 23 mmol/L (21-32); CREATININE 1.4 mg/dL (0.55-1.3); GLUCOSE,RANDOM 128 mg/dL (74-106); MAGNESIUM 1.6 mg/dL (1.8-2.4); PHOSPHOROUS 2.8 mg/dL (2.5-4.9); SGOT/AST 15 U/L (15-37); SGPT/ALT 12 U/L (13-61); SODIUM 140 mmol/L (136-145); TOT PROT 5.4 g/dl (6.4-8.2)
[2019-01-17 08:15] LABS: HEMOGLOBIN 6.9 GM/dL (11.7-16.9)
[2019-01-17] MEDS ORDERED: MAGNESIUM SULF 50% (8.12 MEQ/2 ML-1 GM VIAL) IVPB ONE (08:45)
[2019-01-17] MEDS ORDERED: PT OWN MED DRAWER 7, Y5N ONE (08:47)
[2019-01-17] MEDS: PANTOPRAZOLE SODIUM 80 MG in SODIUM CHLORIDE 100 ML IVPB SCH (08:52)
[2019-01-17] MEDS ORDERED: DEXTROSE 5%-WATER - 50 ML IVPB ONE (11:29)
[2019-01-17] MEDS ORDERED: cefTRIAXone SODIUM 1 GM VIAL ONE (11:29)
[2019-01-17] MEDS: CEFTRIAXONE 1 GM in DEXTROSE 5%-WATER - 50 ML IVPB SCH (11:34)
[2019-01-17] MEDS: MUPIROCIN 2% TOPICAL OINTMENT FOR DECOLONIZATION NS SCH ×2 (11:34→21:22)
--- NOTE | 2019-01-17 12:06 | PN ---
Progress Note, Physician History of Present Illness: Patient is a 68 y/o male with a history of HTN, HLD, CAD s/p CABG, CHF, and COPD who presents for hematemesis. Patient had multiple episodes of dark vomiting this morning. Patient reports he also had an episode of dark vomiting last week. Patient has also been having dark stools. he drinks half a pint of alcohol a day, reporting his last drink was on tuesday. He has had a colonoscopy in the past only with polyps found. He has never had an upper endoscopy. PCI LAD Sep 2018 - Current Medication List Current Medications: Active Medications Albuterol/Ipratropium (Duoneb -) 1 amp NEB Q6H PRN PRN Reason: SHORTNESS OF BREATH Chlorhexidine Gluconate (Hibiclens For Decolonization -) 1 applic TP HS ELLIE Last Admin: 01/16/19 22:43 Dose: 1 applic Pantoprazole Sodium 80 mg/ (Sodium Chloride) 100 mls @ 10 mls/hr IVPB Q10H ELLIE Last Admin: 01/17/19 08:52 Dose: 10 mls/hr Octreotide Acetate 1,200 mcg/ (Dextrose) 500 mls @ 20.83 mls/hr IVPB Q24H ELLIE; Protocol Last Admin: 01/16/19 21:22 Dose: 20.83 mls/hr Ceftriaxone Sodium 1 gm/ (Dextrose) 50 mls @ 100 mls/hr IVPB DAILY ELLIE; Protocol Last Admin: 01/17/19 11:34 Dose: 100 mls/hr Sodium Chloride (Normal Saline -) 1,000 mls @ 100 mls/hr IV ASDIR ELLIE Last Admin: 01/16/19 21:22 Dose: 100 mls/hr Mupirocin (Bactroban Ointment (For Decolonization) -) 1 applic NS BID ELLIE Stop: 01/20/19 09:59 Last Admin: 01/17/19 11:34 Dose: 1 applic - Objective Vital Signs: Vital Signs Temperature 97.8 F 01/17/19 10:00 Pulse Rate 72 01/17/19 10:00 Respiratory Rate 16 01/17/19 10:00 Blood Pressure 108/48 L 01/17/19 10:00 O2 Sat by Pulse Oximetry (%) 95 01/16/19 22:21 Eyes: Yes: WNL, Conjunctiva Clear, EOM Intact HENT: Yes: WNL, Atraumatic, Normocephalic Neck: Yes: WNL, Supple, Trachea Midline Cardiovascular: Yes: WNL, Regular Rate and Rhythm Respiratory: Yes: WNL, Regular, CTA Bilaterally Gastrointestinal: Yes: WNL, Normal Bowel Sounds Genitourinary: Yes: WNL Musculoskeletal: Yes: WNL Extremities: Yes: WNL Edema: No Integumentary: Yes: WNL Neurological: Yes: WNL, Alert, Oriented ...Motor Strength: WNL Psychiatric: Yes: WNL Labs: CBC, BMP 01/17/19 05:30 01/17/19 05:30 INR, PTT INR 1.08 (0.83-1.09) 01/15/19 05:15 Assessment/Plan - Problems (1) Alcohol addiction Code(s): F10.20 - ALCOHOL DEPENDENCE, UNCOMPLICATED Qualifiers: Substance use status: uncomplicated Qualified Code(s): F10.20 - Alcohol dependence, uncomplicated (2) Anemia Code(s): D64.9 - ANEMIA, UNSPECIFIED Qualifiers: Anemia type: unspecified type Qualified Code(s): D64.9 - Anemia, unspecified (3) Atrial fibrillation with RVR Code(s): I48.91 - UNSPECIFIED ATRIAL FIBRILLATION (4) CAD (coronary artery disease) Code(s): I25.10 - ATHSCL HEART DISEASE OF [place] CORONARY ARTERY W/O ANG PCTRS Qualifiers: Coronary Disease-Associated Artery/Lesion type: unspecified vessel or lesion type [place] vs. transplanted heart: [place] heart Associated angina: without angina Qualified Code(s): I25.10 - Atherosclerotic heart disease of [place] coronary artery without angina pectoris (5) GI bleed Assessment/Plan: s/p PRBCs; f/u GI, heme w/u. Code(s): K92.2 - GASTROINTESTINAL HEMORRHAGE, UNSPECIFIED Qualifiers: GI bleed type/associated pathology: melena Qualified Code(s): K92.1 - Melena (6) S/P coronary artery stent placement Code(s): Z95.5 - PRESENCE OF CORONARY ANGIOPLASTY IMPLANT AND GRAFT (7) Acute on chronic systolic and diastolic heart failure, NYHA class 3 Assessment/Plan: Restart carvedilol 3.125 mg bid, and increase as tolerated. Lisinorpril 2.5 mg qd and sprionolactone 25 mg qd if not contraindicated from renal standpoint (f/u BUn/Cr and K+ today after fluids before starting these). F/u repeat ECHO for LVEF, valve status (severely reduced LVEF, severe MR on 2017 ECHO). Code(s): I50.43 - ACUTE ON CHRONIC COMBINED SYSTOLIC AND DIASTOLIC HRT FAIL (8) Elevated LFTs Code(s): R94.5 - ABNORMAL RESULTS OF LIVER FUNCTION STUDIES (9) Generalized weakness Code(s): R53.1 - WEAKNESS (10) Hx of CABG Code(s): Z95.1 - PRESENCE OF AORTOCORONARY BYPASS GRAFT (11) Hypoalbuminemia Code(s): E88.09 - OTH DISORDERS OF PLASMA-PROTEIN METABOLISM, NEC (12) Renal dysfunction Code(s): N28.9 - DISORDER OF KIDNEY AND URETER, UNSPECIFIED Assessment/Plan CCU time spent: 40 minutes.
--- NOTE | 2019-01-17 13:27 | PN ---
Physical Exam: SUBJECTIVE: Patient seen this morning and denies any complaints. No melena overnight. Hgb dropped, to receive 2 units today, patient will have EGD done today. OBJECTIVE: Vital Signs Temperature 97.8 F 01/17/19 10:00 Pulse Rate 78 01/17/19 12:00 Respiratory Rate 16 01/17/19 12:00 Blood Pressure 112/60 01/17/19 12:00 O2 Sat by Pulse Oximetry (%) 95 01/16/19 22:21 GENERAL: Awake, alert, and fully oriented, in no acute distress. HEAD: Normal with no signs of trauma. EYES: bilateral cataracts LUNGS: Breath sounds equal, clear to auscultation bilaterally. No wheezes, and no crackles. No accessory muscle use. HEART: Regular rate and rhythm, no murmurs heard ABDOMEN: Soft, nontender, not distended, normoactive bowel sounds, no guarding, no rebound, no masses. LOWER EXTREMITIES: 2+ pulses, warm, well-perfused. No calf tenderness. No peripheral edema. SKIN: Warm, dry, normal turgor, no rashes or lesions noted. CBCD WBC 6.1 K/mm3 (4.0-10.0) 01/17/19 05:30 RBC 2.46 M/mm3 (4.00-5.60) L 01/17/19 05:30 Hgb 6.9 GM/dL (11.7-16.9) L* 01/17/19 05:30 Hct 20.5 % (35.4-49) L D 01/17/19 05:30 MCV 83.3 fl (80-96) 01/17/19 05:30 MCHC 33.8 g/dl (32.0-35.9) 01/17/19 05:30 RDW 17.0 % (11.9-15.9) H 01/17/19 05:30 Plt Count 135 K/MM3 (134-434) 01/17/19 05:30 MPV 8.7 fl (7.5-11.1) 01/17/19 05:30 CMP Sodium 140 mmol/L (136-145) 01/17/19 05:30 Potassium 5.0 mmol/L (3.5-5.1) 01/17/19 05:30 Chloride 112 mmol/L (98-107) H 01/17/19 05:30 Carbon Dioxide 23 mmol/L (21-32) 01/17/19 05:30 Anion Gap 5 MMOL/L (8-16) L 01/17/19 05:30 BUN 39 mg/dL (7-18) H 01/17/19 05:30 Creatinine 1.4 mg/dL (0.55-1.3) H 01/17/19 05:30 Creat Clearance w eGFR 50.25 (>60) 01/17/19 05:30 Calcium 8.2 mg/dL (8.5-10.1) L 01/17/19 05:30 Total Bilirubin 0.9 mg/dL (0.2-1) 01/17/19 05:30 AST 15 U/L (15-37) 01/17/19 05:30 ALT 12 U/L (13-61) L 01/17/19 05:30 Alkaline Phosphatase 45 U/L (45-117) 01/17/19 05:30 Total Protein 5.4 g/dl (6.4-8.2) L 01/17/19 05:30 Albumin 2.8 g/dl (3.4-5.0) L 01/17/19 05:30 Active Medications Albuterol/Ipratropium (Duoneb -) 1 amp NEB Q6H PRN PRN Reason: SHORTNESS OF BREATH Chlorhexidine Gluconate (Hibiclens For Decolonization -) 1 applic TP HS ELLIE Last Admin: 01/16/19 22:43 Dose: 1 applic Pantoprazole Sodium 80 mg/ (Sodium Chloride) 100 mls @ 10 mls/hr IVPB Q10H ELLIE Last Admin: 01/17/19 08:52 Dose: 10 mls/hr Octreotide Acetate 1,200 mcg/ (Dextrose) 500 mls @ 20.83 mls/hr IVPB Q24H ELLIE; Protocol Last Admin: 01/16/19 21:22 Dose: 20.83 mls/hr Ceftriaxone Sodium 1 gm/ (Dextrose) 50 mls @ 100 mls/hr IVPB DAILY ELLIE; Protocol Last Admin: 01/17/19 11:34 Dose: 100 mls/hr Sodium Chloride (Normal Saline -) 1,000 mls @ 100 mls/hr IV ASDIR ELLIE Last Admin: 01/16/19 21:22 Dose: 100 mls/hr Mupirocin (Bactroban Ointment (For Decolonization) -) 1 applic NS BID ELLIE Stop: 01/20/19 09:59 Last Admin: 01/17/19 11:34 Dose: 1 applic ASSESSMENT/PLAN: Patient is a 68 y/o male with a history of HTN, HLD, CAD s/p CABG, CHF, and COPD who presents for hematemesis likely 2/2 to upper GI bleed. Neuro - stable, A& O x3 Cardio - Map consistently above 65, hemodynamics stable - hx CHF, most recent Echo (05/21/18): LV systolic function severly reduced, EF 15-20 - CAD with hx CABG, recent stent, on clopidogrel and aspirin at home, hold clopidogrel and aspirin - hold home BP medications with low BP - continue to monitor closely , f/u CXR Pulmonolgy - on nasal cannula - tolerating O2, maintain above 90% - duonebs prn - ? hx of COPD, no active exacerbation GI - acute GI bleed, likely upper 2/2 to unknown source, cannot rule out variceal bleed with alcohol hx - NPO - protonix drip, octreotide drip - f/u after EG today - spoke with Dr Zurita, GI intervention first - patient to receive five units, hold all AC - no stool hx overnight - lactic acid resolved Renal - OLIMPIA, likely 2/2 to GI bleed and ATN from volume loss - continue fluids, slowly resolving ID - afebrile - r/o infectious source with cx - Ceftriaxone 2 gm daily, emperic coverage for possible SBO with alcoholism history Endo - stable FEN - NPO for Endoscopy to - electrolytes stable - f/u repeat labs at 3 pm Dispo: GI felt that EGD would have to be done at tertiary center for hx of cardiac stent, patient will be transferred to [place] tomorrow Visit type - Emergency Visit Emergency Visit: No - New Patient This patient is new to me today: No - Critical Care Critical Care patient: Yes Total Critical Care Time (in minutes): 35 Critical Care Statement: The care of this patient involved high complexity decision making to prevent further life threatening deterioration of the patient 's condition and/or to evaluate & treat vital organ system(s) failure or risk of failure.
--- NOTE | 2019-01-17 13:44 | PN ---
Teaching Attending Note Name of Resident: Sparkle Nguyễn ATTENDING PHYSICIAN STATEMENT I saw and evaluated the patient. I reviewed the resident's note and discussed the case with the resident. I agree with the resident's findings and plan as documented. SUBJECTIVE: Pt seen and examined in the ICU. No bowel movements overnight but H/H down this AM. No shortness of breath or chest pain. OBJECTIVE: Vital Signs Period Temp Pulse Resp BP Sys/Reyes Pulse Ox Last 24 Hr 97.4 F-98.7 F 72-94 13-27 88-121/48-90 95 Intake & Output 01/14/19 01/15/19 01/16/19 01/17/19 23:59 23:59 23:59 23:59 Intake Total 2940 1576 Output Total 600 1100 400 Balance -600 1840 1176 Weight 75.296 kg 65.771 kg 67.857 kg Gen: NAD at rest Heart: RRR Lung: decreased breath sounds at the bases Abd: soft, nontender Ext: no edema CBC, BMP 01/17/19 05:30 01/17/19 05:30 Active Medications Albuterol/Ipratropium (Duoneb -) 1 amp NEB Q6H PRN PRN Reason: SHORTNESS OF BREATH Chlorhexidine Gluconate (Hibiclens For Decolonization -) 1 applic TP HS ELLIE Last Admin: 01/16/19 22:43 Dose: 1 applic Pantoprazole Sodium 80 mg/ (Sodium Chloride) 100 mls @ 10 mls/hr IVPB Q10H ELLIE Last Admin: 01/17/19 08:52 Dose: 10 mls/hr Octreotide Acetate 1,200 mcg/ (Dextrose) 500 mls @ 20.83 mls/hr IVPB Q24H ELLIE; Protocol Last Admin: 01/16/19 21:22 Dose: 20.83 mls/hr Ceftriaxone Sodium 1 gm/ (Dextrose) 50 mls @ 100 mls/hr IVPB DAILY ELLIE; Protocol Last Admin: 01/17/19 11:34 Dose: 100 mls/hr Sodium Chloride (Normal Saline -) 1,000 mls @ 100 mls/hr IV ASDIR ELLIE Last Admin: 01/16/19 21:22 Dose: 100 mls/hr Mupirocin (Bactroban Ointment (For Decolonization) -) 1 applic NS BID ELLIE Stop: 01/20/19 09:59 Last Admin: 01/17/19 11:34 Dose: 1 applic ASSESSMENT AND PLAN: GI Bleed Likely Upper Acute Blood Loss Anemia Acute Kidney Injury CAD s/p CABG and recent stents Severe LV Systolic Dysfunction COPD HTN Hyperlipidemia Alcohol Abuse - monitor H/H - transfuse as needed - continue protonix, octreotide gtts for now - empiric antibiotics - IVF boluses as needed - monitor urine output, creatinine - NPO - GI f/u for endoscopy - inhaled bronchodilators - O2 to keep spO2 >90% - DVT prophylaxis - continue ICU monitoring critical care time spent in reviewing chart, evaluating patient and formulating plan 35 min
[2019-01-17 14:29] LABS: HEMATOCRIT 29.4 % (35.4-49); HEMOGLOBIN 9.7 GM/dL (11.7-16.9); MCH 29.1 pg (25.7-33.7); MEAN CELL VOLUME 88.3 fl (80-96); MEAN PLT VOLUME 8.6 fl (7.5-11.1); PLATELET COUNT 129 K/MM3 (134-434); RBC 3.32 M/mm3 (4.00-5.60); RDW 18.3 % (11.9-15.9)
--- NOTE | 2019-01-17 14:36 | PN ---
Teaching Attending Note Name of Resident: Anup Sheikh ATTENDING PHYSICIAN STATEMENT I saw and evaluated the patient. I reviewed the resident's note and discussed the case with the resident. I agree with the resident's findings and plan as documented. SUBJECTIVE:asymptomatic. denies CP, SOB, fver, chills, N/V/C/D, or melena OBJECTIVE: Last Vital Signs Temp Pulse Resp BP Pulse Ox 97.8 F 78 16 120/82 95 01/17/19 10:00 01/17/19 14:00 01/17/19 14:00 01/17/19 14:00 01/16/19 22:21 General NAD CV S1 S2 RRR no murmur/rub/gallop Lungs CTA anteriorly ABdomen soft NT/ND ASSESSMENT AND PLAN: 67 yo M with PMHx of CAD s/p CABG (2002), cardiac stents 2018, systolic CHF, active heavy smoker x35 years, COPD, HTN, HLD came to hospital for vomiting and found to be developing hemovolemic shock due to acute blood loss anemia suspected from upper GI bleed 1. Hypovolemic shock-now resolved. adequately volume resuscitated. did not require pressors. BP stable. cont to hold oral agents. lactic acidosis resolved 2. GI bleed- liekly upper. on duapt. denies NSAID use. no signs of bleeding. NPO for EGD possibly today once Hgb is improved. NPO, IVF, PPI and octreotide ggt. empiric abx with ceftriaxone. GI on board 3. acute blood loss anemia- received 3 units PRBC this hospital stay. acute drop in hgb. 2 units PRBC ordered. check post-tranfusion cbc 4. Severe hypokalemia- resolved 5. Hypophosphatemia- resolved 6. OLIMPIA- due to hypoperfusion. improved. cont to monitor I&O closely. avoid nephrotoxic agents 7. CAD s/p CABG and stents recently placed- trop neg x1. cardio consulted. will hold DUAPT at this time 8. systolic CHF- no signs of volume overload. will need to monitor closely during volume resuscitation. hold diuretics/statin. 9. HTN- currently hypotensive. hold oral agents 10. COPD- no signs of exacerbation. 11. dyslipidemia- hold statins 12. DVT ppx- SCD. hold pharmacologic anticoagulation 13. MICU monitoring. The care of this patient involved high complexity decision making to prevent further life threatening deterioration of the patient's condition and/or to evaluate & treat vital organ system(s) failure or risk of failure. 38 mins
[2019-01-17 15:36] VITALS: BMI 21.9
--- NOTE | 2019-01-17 15:39 | PN ---
Physical Exam: SUBJECTIVE: Patient seen and examined. No acute bleeding events overnight. Pt. described an episode of blurry vision that last 1 min and resolved spontaneously. Pt. denies having a BM. OBJECTIVE: Vital Signs Period Temp Pulse Resp BP Sys/Reyes Pulse Ox Last 24 Hr 97.4 F-98.7 F 72-94 13-27 88-121/48-90 95 GENERAL: The patient is awake, alert, and fully oriented, in no acute distress. HEAD: Normal with no signs of trauma. EYES: No scleral icterus today ENT: Ears normal, nares patent, dry mucous membranes. NECK: Trachea midline, full range of motion, supple. LUNGS: Breath sounds equal, clear to auscultation bilaterally, no wheezes, no crackles, no accessory muscle use. HEART: Regular rate and rhythm, S1, S2 without murmur ABDOMEN: Soft, nontender, nondistended, normoactive bowel sounds, no guarding, no rebound EXTREMITIES: 2+ radial pulses, warm, no calf tenderness, well-perfused, no edema. NEUROLOGICAL: Normal speech, gait not observed. PSYCH: Normal mood, normal affect. SKIN: Warm, dry, normal turgor, no rashes or lesions noted Laboratory Results - last 24 hr 01/15/19 01/16/19 01/16/19 06:07 16:15 16:15 WBC 8.6 RBC 2.88 L Hgb 8.0 L Hct 24.3 L MCV 84.4 MCH 27.9 MCHC 33.1 RDW 17.6 H Plt Count 123 L MPV 9.0 Sodium 142 Potassium 5.4 H Chloride 113 H Carbon Dioxide 23 Anion Gap 7 L BUN 59 H Creatinine 1.6 H Creat Clearance w eGFR 43.07 Random Glucose 139 H Calcium 8.1 L Phosphorus Magnesium Total Bilirubin 0.6 AST 15 ALT 13 Alkaline Phosphatase 45 Total Protein 5.5 L Albumin 2.9 L Blood Type A POSITIVE Antibody Screen Negative Crossmatch See Detail 01/16/19 01/17/19 01/17/19 21:56 05:30 05:30 WBC 8.9 6.1 RBC 2.88 L 2.46 L Hgb 8.1 L 6.9 L* Hct 24.2 L 20.5 L D MCV 84.2 83.3 MCH 28.2 28.2 MCHC 33.5 33.8 RDW 17.6 H 17.0 H Plt Count 129 L 135 MPV 9.0 8.7 Sodium 140 Potassium 5.0 Chloride 112 H Carbon Dioxide 23 Anion Gap 5 L BUN 39 H Creatinine 1.4 H Creat Clearance w eGFR 50.25 Random Glucose 128 H Calcium 8.2 L Phosphorus 2.8 Magnesium 1.6 L Total Bilirubin 0.9 AST 15 ALT 12 L Alkaline Phosphatase 45 Total Protein 5.4 L Albumin 2.8 L Blood Type Antibody Screen Crossmatch 01/17/19 13:55 WBC 8.0 RBC 3.32 L Hgb 9.7 L Hct 29.4 L D MCV 88.3 MCH 29.1 MCHC 33.0 RDW 18.3 H Plt Count 129 L MPV 8.6 Sodium Potassium Chloride Carbon Dioxide Anion Gap BUN Creatinine Creat Clearance w eGFR Random Glucose Calcium Phosphorus Magnesium Total Bilirubin AST ALT Alkaline Phosphatase Total Protein Albumin Blood Type Antibody Screen Crossmatch Active Medications Home Medications Medication Instructions Recorded Allopurinol [Zyloprim -] 300 mg PO DAILY 05/20/18 Aspirin [ASA -] 81 mg PO DAILY tab.chew 05/31/18 Clopidogrel Bisulfate [Plavix -] 75 mg PO DAILY tablet 05/31/18 Atorvastatin Ca [Lipitor] 40 mg PO HS 01/15/19 Furosemide [Lasix -] 40 mg PO DAILY 01/15/19 Isosorbide Mononitrate [Isosorbide 30 mg PO DAILY 01/15/19 Mononitrate ER] Lisinopril 5 mg PO DAILY 01/15/19 Metoprolol Tartrate [Lopressor -] 25 mg PO DAILY 01/15/19 Spironolactone 25 mg PO DAILY 01/15/19 Current Medications Albuterol/Ipratropium (Duoneb -) 1 amp NEB Q6H PRN PRN Reason: SHORTNESS OF BREATH Chlorhexidine Gluconate (Hibiclens For Decolonization -) 1 applic TP HS ELLIE Last Admin: 01/16/19 22:43 Dose: 1 applic Pantoprazole Sodium 80 mg/ (Sodium Chloride) 100 mls @ 10 mls/hr IVPB Q10H ELLIE Last Admin: 01/17/19 08:52 Dose: 10 mls/hr Octreotide Acetate 1,200 mcg/ (Dextrose) 500 mls @ 20.83 mls/hr IVPB Q24H ELLIE; Protocol Last Admin: 01/16/19 21:22 Dose: 20.83 mls/hr Ceftriaxone Sodium 1 gm/ (Dextrose) 50 mls @ 100 mls/hr IVPB DAILY ELLIE; Protocol Last Admin: 01/17/19 11:34 Dose: 100 mls/hr Sodium Chloride (Normal Saline -) 1,000 mls @ 100 mls/hr IV ASDIR ELLIE Last Admin: 01/16/19 21:22 Dose: 100 mls/hr Mupirocin (Bactroban Ointment (For Decolonization) -) 1 applic NS BID ELLIE Stop: 01/20/19 09:59 Last Admin: 01/17/19 11:34 Dose: 1 applic ASSESSMENT/PLAN: 68 year old male with a hx of CAD s/p CABG (2002), cardiac stent placement x3 last year on ASA/plavix, CHF w/ 15% EF, COPD, HTN, HLD, and ethanol abuse presenting to the hospital for vomiting of 1 day duration and admitted for acute gastrointestinal bleeding. #Acute Gastrointestinal Bleed Based on clinical history Pt. likely has Upper GI bleed ( 2+ drinks/day, on DAPT , and coffee ground emesis) HgB dropped to 6.4 on admission from a baseline of 11-12 in 2018 (of note was up to 13-14 in prior years) c/w IVF Hold ASA and Plavix NPO s/p 3 units--> HgB 8.3-->6.9-->given 2 units--> now 9.6 LA wnl 3.9-->3.4-->1.6-->1.4 c/w Octreotide drip c/w Protonix drip c/w Ceftriaxone GI consult appreciated (Dr. Avila)--> given Pt.'s cardiac risk decision was made to transfer Pt. to tertiary level care facility. Frances score indicates 2.4 % risk of OK within 30 days. YOMBA SHOSHONE II score is 14 points indicating 15% mortality risk #Atrial Fibrillation Echo: in 05/2018 showed: EF 15-20%, with severe global hypokinesis and LV dilatation with severe MR now in sinus rhythm c/w Tele monitoring Hold Metoprolol Can rate control with amiodarone drip if needed Hold AC in setting of GI bleed Cardiology consult (Dr. Marie) appreciated. Will resume anticoagulation/ antiplatelets agents as per Cardiology recommendations. #CAD s/p 3 stents in 09/2018 and was on dual antiplatelets at home hold antiplatelet agents hold Isosorbide mononitrate as BP has been low #CHFrEF Echo noted as above Hold Aldactone and Lasix #HTN hold Lisinopril and #HLD hold statin #FEN NS @ 100ml/hr (given Hx. of CHF and poor EF) monitor electrolytes and replete as needed (K+ and Phos repleted) NPO #Prophylaxis SCDs only #Disposition ICU- Full Code Visit type - Emergency Visit Emergency Visit: Yes ED Registration Date: 01/15/19 Care time: The patient presented to the Emergency Department on the above date and was hospitalized for further evaluation of their emergent condition. - New Patient This patient is new to me today: No - Critical Care Critical Care patient: Yes Total Critical Care Time (in minutes): 45 Critical Care Statement: The care of this patient involved high complexity decision making to prevent further life threatening deterioration of the patient 's condition and/or to evaluate & treat vital organ system(s) failure or risk of failure. - Discharge Referral Referred to [facility] No
--- NOTE | 2019-01-17 16:28 | PN ---
Progress Note (short form) - Note Progress Note: Pt was tentatively planned for EGD today. No further bms reported, however Hb noted to be 6.9, SBP 80s this am therefore additional PRBC transfusion advised prior to endoscopy. On further discussion with anesthesia team and rotary driller prospecting, pt deemed to be high risk in setting of underlying cardiac disease/recent PCI with low EF with the risks of endoscopy likely outweighing potential benefits currently. While diagnostic EGD could be performed, if high risk lesion or active bleeding seen, endoscopic therapeutic interventions would also be limited in setting of recent antiplatelet therapies and possibly requiring prolonged procedural time, ET intubation, with further risk of cardiorespiratory compromise. On discussion with rotary driller prospecting, decision is to defer EGD at this time and transfer pt to [facility] for higher level of care with interventional cardiology team available. Pending transfer, recommend continue to closely monitor Hb and for further bleeding Repeat CBC pending now and advise repeat at 8pm to ensure stability Continue PPI and octreotide infusions Keep NPO If further bleeding, drop in Hb or hemodynamic instability in the interim please notify GI. Discussed with pts and pts daughter who verbalized understanding and are agreeable Discussed with MICU, cardiology and anesthesia teams. Problem List - Problems (1) GI bleed Code(s): K92.2 - GASTROINTESTINAL HEMORRHAGE, UNSPECIFIED Qualifiers: GI bleed type/associated pathology: melena Qualified Code(s): K92.1 - Melena
[2019-01-17] MEDS: SODIUM CHLORIDE 1,000 ML IV SCH (18:00)
[2019-01-17] MEDS: CHLORHEXIDINE GLUCONATE 4% CLEANSER FOR DECOLONIZATION TP SCH (21:23)
[2019-01-17] MEDS: OCTREOTIDE ACETATE 1,200 MCG in DEXTROSE 5%-WATER - 488 ML IVPB SCH (23:30)
[2019-01-18] MEDS: PANTOPRAZOLE SODIUM 80 MG in SODIUM CHLORIDE 100 ML IVPB SCH ×4 (00:47→17:00)
[2019-01-18] MEDS: SODIUM CHLORIDE 1,000 ML IV SCH ×2 (00:48→15:14)
[2019-01-18 06:38] LABS: HEMATOCRIT 28.5 % (35.4-49); HEMOGLOBIN 9.6 GM/dL (11.7-16.9); MCH 29.1 pg (25.7-33.7); MCHC 33.7 g/dl (32.0-35.9); MEAN CELL VOLUME 86.4 fl (80-96); MEAN PLT VOLUME 8.2 fl (7.5-11.1); PLATELET COUNT 138 K/MM3 (134-434); RDW 17.4 % (11.9-15.9); WHITE BLOOD COUNT 6.7 K/mm3 (4.0-10.0)
[2019-01-18 06:45] LABS: INR 0.98 (0.83-1.09); PROTHROMBIN TIME (PATIENT) 11.6 SEC (9.7-13.0)
[2019-01-18 07:03] LABS: ALBUMIN 2.6 g/dl (3.4-5.0); ALK PHOS 46 U/L (45-117); ANION GAP 5 MMOL/L (8-16); BILIRUBIN,TOTAL 0.9 mg/dL (0.2-1); BLOOD UREA NITROGEN 18 mg/dL (7-18); CHLORIDE 110 mmol/L (98-107); CO2 22 mmol/L (21-32); CREATININE 1.2 mg/dL (0.55-1.3); GLUCOSE,RANDOM 102 mg/dL (74-106); MAGNESIUM 1.6 mg/dL (1.8-2.4); POTASSIUM 4.6 mmol/L (3.5-5.1); SGOT/AST 15 U/L (15-37); SGPT/ALT 12 U/L (13-61); SODIUM 137 mmol/L (136-145); TOT PROT 5.2 g/dl (6.4-8.2)
--- NOTE | 2019-01-18 07:54 | PN ---
Physical Exam: SUBJECTIVE: Patient seen and examined at bedside. No new complaints, no events overnight, no further bleeding episodes. OBJECTIVE: Vital Signs Period Temp Pulse Resp BP Sys/Reyes Pulse Ox Last 24 Hr 97.8 F-98.6 F 65-103 16-20 88-144/48-82 100 GENERAL: The patient is awake, alert, and fully oriented, in no acute distress. HEAD: Normal with no signs of trauma. LUNGS: Breath sounds equal, clear to auscultation bilaterally, no wheezes, no crackles, no accessory muscle use. HEART: Regular rate and rhythm, S1, S2 without murmur, rub or gallop. ABDOMEN: Soft, nontender, nondistended, normoactive bowel sounds, no guarding, no rebound, no hepatosplenomegaly, no masses. EXTREMITIES: 2+ pulses, warm, well-perfused, no edema. NEUROLOGICAL: Cranial nerves II through X grossly intact. Normal speech, gait not observed. SKIN: Warm, dry, normal turgor, no rashes or lesions noted Laboratory Results - last 24 hr 01/15/19 01/17/19 01/17/19 06:07 05:30 13:55 WBC 6.1 8.0 RBC 2.46 L 3.32 L Hgb 6.9 L* 9.7 L Hct 20.5 L D 29.4 L D MCV 83.3 88.3 MCH 28.2 29.1 MCHC 33.8 33.0 RDW 17.0 H 18.3 H Plt Count 135 129 L MPV 8.7 8.6 PT with INR INR Sodium Potassium Chloride Carbon Dioxide Anion Gap BUN Creatinine Creat Clearance w eGFR Random Glucose Calcium Phosphorus Magnesium Total Bilirubin AST ALT Alkaline Phosphatase Total Protein Albumin Blood Type A POSITIVE Antibody Screen Negative Crossmatch See Detail 01/18/19 01/18/19 01/18/19 05:30 05:30 05:30 WBC 6.7 RBC 3.30 L Hgb 9.6 L Hct 28.5 L MCV 86.4 MCH 29.1 MCHC 33.7 RDW 17.4 H Plt Count 138 MPV 8.2 PT with INR 11.60 INR 0.98 Sodium 137 Potassium 4.6 Chloride 110 H Carbon Dioxide 22 Anion Gap 5 L BUN 18 Creatinine 1.2 Creat Clearance w eGFR 60.03 Random Glucose 102 Calcium 8.0 L Phosphorus 3.0 Magnesium 1.6 L Total Bilirubin 0.9 AST 15 ALT 12 L Alkaline Phosphatase 46 Total Protein 5.2 L Albumin 2.6 L Blood Type Antibody Screen Crossmatch Active Medications Generic Name Dose Route Start Last Admin Trade Name Francis PRN Reason Stop Dose Admin Albuterol/Ipratropium 1 amp 01/15/19 14:46 Duoneb - NEB Q6H PRN SHORTNESS OF BREATH Chlorhexidine Gluconate 1 applic 01/15/19 22:00 01/17/19 21:23 Hibiclens For Decolonization - TP 1 applic HS ELLIE Administration Pantoprazole Sodium 80 mg/ 100 mls @ 10 mls/hr 01/15/19 07:45 01/18/19 05:23 Sodium Chloride IVPB Not Given Q10H ELLIE 8 MG/HR Octreotide Acetate 1,200 mcg/ 500 mls @ 20.83 mls/hr 01/15/19 13:00 01/17/19 23:30 Dextrose IVPB 20.83 mls/hr Q24H ELLIE Administration Protocol 50 MCG/HR Ceftriaxone Sodium 1 gm/ 50 mls @ 100 mls/hr 01/15/19 12:15 01/17/19 11:34 Dextrose IVPB 100 mls/hr DAILY ELLIE Administration Protocol Sodium Chloride 1,000 mls @ 100 mls/hr 01/15/19 14:15 01/18/19 00:48 Normal Saline - IV 100 mls/hr ASDIR ELLIE Administration Magnesium Sulfate 2 gm 01/18/19 07:52 Magnesium Sulfate IVPB 01/18/19 07:53 ONCE ONE Mupirocin 1 applic 01/15/19 10:00 01/17/19 21:22 Bactroban Ointment (For Decolonization) - NS 01/20/19 09:59 1 applic BID ELLIE Administration ASSESSMENT/PLAN: Patient is a 68 y/o male with a history of HTN, HLD, CAD s/p CABG, CHF, and COPD who presents for hematemesis likely 2/2 to upper GI bleed. Neuro - stable, A& O x3 Cardio - Map consistently above 65, hemodynamics stable - hx CHF, most recent Echo (05/21/18): LV systolic function severly reduced, EF 15-20 - CAD with hx CABG, recent stent, on clopidogrel and aspirin at home, holding clopidogrel and aspirin - hold home BP medications with low BP - continue to monitor closely Pulmonolgy - saturating well on nasal cannula - maintain SPO2 > 90% - duonebs prn - ? hx of COPD, no active exacerbation GI - acute GI bleed, likely upper 2/2 to unknown source, cannot rule out variceal bleed with alcohol hx - NPO - protonix drip, octreotide drip - EGD deferred as patient is at a high risk of cardiac complications of anaesthesia - Patient accepted for transfer to [facility] for EGD in a hospital better equipped to handle possible cardiac complications; awaiting insurance auth - spoke with Dr Zurita, GI intervention first - patient to receive five units, hold all AC - no stool hx overnight - lactic acid resolved Renal - OLIMPIA, likely 2/2 to GI bleed and ATN from volume loss - continue fluids, slowly resolving ID - afebrile - r/o infectious source with cx - Ceftriaxone 1 gm daily, emperic coverage for possible SBO with alcoholism history Endo - stable FEN - NPO - electrolytes stable - f/u repeat labs at 3 pm Dispo: -continue to monitor in ICU -patient for txfer to [facility] -daughter wishes to be notified if patient is to be moved: Catherine Ortiz ( daughter) [phone] Visit type - Emergency Visit Emergency Visit: Yes ED Registration Date: 01/15/19 Care time: The patient presented to the Emergency Department on the above date and was hospitalized for further evaluation of their emergent condition. - New Patient This patient is new to me today: No - Critical Care Critical Care patient: No - Discharge Referral Referred to [facility] Med P.C.: No
[2019-01-18] MEDS ORDERED: MAGNESIUM SULF 50% (8.12 MEQ/2 ML-1 GM VIAL) IVPB ONE (08:45)
[2019-01-18] MEDS ORDERED: cefTRIAXone SODIUM 1 GM VIAL ONE (09:34)
[2019-01-18] MEDS ORDERED: DEXTROSE 5%-WATER - 50 ML IVPB ONE (09:34)
[2019-01-18] MEDS: CEFTRIAXONE 1 GM in DEXTROSE 5%-WATER - 50 ML IVPB SCH (09:37)
[2019-01-18] MEDS: MUPIROCIN 2% TOPICAL OINTMENT FOR DECOLONIZATION NS SCH ×2 (09:38→21:09)
--- NOTE | 2019-01-18 10:17 | PN ---
Progress Note, Physician Chief Complaint: Pt A&Ox3; denies chest pain, abdominal pain, palpitationsm duzzubess, History of Present Illness: Mr Ortiz is a 68 year old black man with PMHx HTN, HLD, CAD s/p CABG and valve replacement in 2002, s/p DE stent LAD (see below), severe systolic CHF with severe MR (12/2017 ECHO), chronic alcoholism, gout, who presents for evaluation of shortness of breath and vomiting. The patient is accompanied by family who assist in providing the history. They note that the patient began vomiting and experiencing shortness of breath beginning yesterday evening. They noted dark colored vomit as well as noting that the patient was slightly confused prompting his presentation to the ED for further evaluation. On presentation the patient reports nausea, fatigue and shortness of breath. He otherwise denies any fevers, chills, chest pain, abdominal pain, or changes with urination or bowel movements. s/p CABG and bioprosthetic ?bob valve [place] [facility] [place] hx [place] ). s/p DE stent of LAD 09/2018 - Current Medication List Current Medications: Active Medications Albuterol/Ipratropium (Duoneb -) 1 amp NEB Q6H PRN PRN Reason: SHORTNESS OF BREATH Chlorhexidine Gluconate (Hibiclens For Decolonization -) 1 applic TP HS ELLIE Last Admin: 01/17/19 21:23 Dose: 1 applic Pantoprazole Sodium 80 mg/ (Sodium Chloride) 100 mls @ 10 mls/hr IVPB Q10H ELLIE Last Admin: 01/18/19 05:23 Dose: Not Given Octreotide Acetate 1,200 mcg/ (Dextrose) 500 mls @ 20.83 mls/hr IVPB Q24H ELLIE; Protocol Last Admin: 01/17/19 23:30 Dose: 20.83 mls/hr Ceftriaxone Sodium 1 gm/ (Dextrose) 50 mls @ 100 mls/hr IVPB DAILY ELLIE; Protocol Last Admin: 01/18/19 09:37 Dose: 100 mls/hr Sodium Chloride (Normal Saline -) 1,000 mls @ 100 mls/hr IV ASDIR ELLIE Last Admin: 01/18/19 00:48 Dose: 100 mls/hr Mupirocin (Bactroban Ointment (For Decolonization) -) 1 applic NS BID ELLIE Stop: 01/20/19 09:59 Last Admin: 01/18/19 09:38 Dose: 1 applic - Objective Vital Signs: Vital Signs Temperature 97.5 F L 01/18/19 10:00 Pulse Rate 76 01/18/19 10:00 Respiratory Rate 01/18/19 10:00 Blood Pressure 108/69 01/18/19 10:00 O2 Sat by Pulse Oximetry (%) 100 01/18/19 09:00 Constitutional: Yes: Calm Eyes: Yes: WNL HENT: Yes: WNL Neck: Yes: WNL Cardiovascular: Yes: Regular Rate and Rhythm Respiratory: Yes: WNL Gastrointestinal: Yes: Soft. No: Tenderness ...Rectal Exam: Yes: Deferred Genitourinary: No: Anuria Musculoskeletal: Yes: Muscle Weakness Peripheral Pulses WNL: Yes Integumentary: Yes: Tattoos (left forearm) Neurological: Yes: Alert, Oriented, Weakness Psychiatric: Yes: Alert, Oriented, Other (alcoholism) Labs: CBC, BMP 01/18/19 05:30 01/18/19 05:30 INR, PTT INR 0.98 (0.83-1.09) 01/18/19 05:30 Abnormal Lab Results 01/15/19 01/17/19 01/18/19 06:07 13:55 05:30 RBC 3.32 L 3.30 L Hgb 9.7 L 9.6 L Hct 29.4 L D 28.5 L RDW 18.3 H 17.4 H Plt Count 129 L Chloride Anion Gap Calcium Magnesium ALT Total Protein Albumin Crossmatch See Detail 01/18/19 05:30 RBC Hgb Hct RDW Plt Count Chloride 110 H Anion Gap 5 L Calcium 8.0 L Magnesium 1.6 L ALT 12 L Total Protein 5.2 L Albumin 2.6 L Crossmatch - ....Imaging Chest X-ray: Image Reviewed Other: Image Reviewed (telemetry: NSR) Problem List - Problems (1) Alcohol addiction Assessment/Plan: no reported DTs Code(s): F10.20 - ALCOHOL DEPENDENCE, UNCOMPLICATED Qualifiers: Substance use status: uncomplicated Qualified Code(s): F10.20 - Alcohol dependence, uncomplicated (2) Anemia Assessment/Plan: s/p PRBCs x 2 yesterday; Hb now 9.6. Pt awaits transfer to [facility] for further GI and cardiac evaluation ( EGD cancelled yesterday: pt was hypotensive, severely anemic, and has recnet hx of LAD DE Stent, severely reduced LVEF; he multiple risks were felt better handled at [facility]. Pt's cardiac interventionalist, Dr. Veronica, is aware and awatis tranfer. Code(s): D64.9 - ANEMIA, UNSPECIFIED Qualifiers: Anemia type: unspecified type Qualified Code(s): D64.9 - Anemia, unspecified (3) CAD (coronary artery disease) Code(s): I25.10 - ATHSCL HEART DISEASE OF [place] CORONARY ARTERY W/O ANG PCTRS Qualifiers: Coronary Disease-Associated Artery/Lesion type: unspecified vessel or lesion type [place] vs. transplanted heart: [place] heart Associated angina: without angina Qualified Code(s): I25.10 - Atherosclerotic heart disease of [place] coronary artery without angina pectoris (4) GI bleed Assessment/Plan: s/p PRBCs x 2 yesterday; f/u GI, heme w/u. Code(s): K92.2 - GASTROINTESTINAL HEMORRHAGE, UNSPECIFIED Qualifiers: GI bleed type/associated pathology: melena Qualified Code(s): K92.1 - Melena (5) S/P coronary artery stent placement Code(s): Z95.5 - PRESENCE OF CORONARY ANGIOPLASTY IMPLANT AND GRAFT (6) Acute on chronic systolic and diastolic heart failure, NYHA class 3 Assessment/Plan: Restart carvedilol 3.125 mg bid, and increase as tolerated (hypotensive yesterday, however). Lisinorpril 2.5 mg qd and sprionolactone 25 mg qd if not contraindicated from hemodynamic, renal standpoint (f/u BUn/Cr and K+ today after fluids before starting these). F/u repeat ECHO for LVEF, valve status (severely reduced LVEF, severe MR on 2017 ECHO). Code(s): I50.43 - ACUTE ON CHRONIC COMBINED SYSTOLIC AND DIASTOLIC HRT FAIL (7) Elevated LFTs Code(s): R94.5 - ABNORMAL RESULTS OF LIVER FUNCTION STUDIES (8) Generalized weakness Code(s): R53.1 - WEAKNESS (9) Hx of CABG Code(s): Z95.1 - PRESENCE OF AORTOCORONARY BYPASS GRAFT (10) Hypoalbuminemia Code(s): E88.09 - OTH DISORDERS OF PLASMA-PROTEIN METABOLISM, NEC (11) Renal dysfunction Code(s): N28.9 - DISORDER OF KIDNEY AND URETER, UNSPECIFIED Assessment/Plan CCU time spent: 35 minutes.
--- NOTE | 2019-01-18 14:09 | ECHO ---
Name: PAOLA SALEH Exam:Adult Echocardiogram Study Date: 01/18/2019 11:57 AM Age: 68 yrs Reason For Study: systolic CHF,?bioprosthetic MV,ETOH Height: 69 in Weight: 144 lb BSA: 1.8 m2 MMode/2D Measurements & Calculations IVSd: 0.96 cm Ao root diam: 3.4 cm LVIDd: 5.3 cm LA dimension: 3.6 cm LVIDs: 4.8 cm ACS: 2.3 cm LVPWd: 1.0 cm IVSs: 0.90 cm LVPWs: 1.3 cm EDV(Teich): 134.1 ml ESV(Teich): 109.2 ml EPSS: 1.7 cm Doppler Measurements & Calculations MV V2 max: 136.8 cm/sec MV E max chad: 130.5 cm/sec MV max P.5 mmHg MV A max chad: 85.9 cm/sec MV V2 mean: 64.2 cm/sec MV E/A: 1.5 MV mean P.0 mmHg MV V2 VTI: 31.7 cm MV P1/2t max chad: 135.5 cm/sec Ao V2 max: 106.0 cm/sec MV P1/2t: 105.6 msec Ao max P.5 mmHg MVA(P1/2t): 2.1 cm2 Ao V2 mean: 72.1 cm/sec Ao mean P.4 mmHg MV dec slope: 375.8 cm/sec2 Ao V2 VTI: 19.6 cm MR max chad: 521.5 cm/sec TR max chad: 242.8 cm/sec MR max P.8 mmHg TR max P.7 mmHg PI end-d chad: 126.9 cm/sec Med Peak E' Chad: 4.5 cm/sec Med E/e': 29.0 Lat Peak E' Chad: 4.6 cm/sec Lat E/e': 28.3 Procedure A complete two-dimensional transthoracic echocardiogram was performed (2D, M-mode, Doppler and color flow Doppler). Left Ventricle The left ventricle is normal in size. Left ventricular systolic function is severely reduced. Ejectio n Fraction = 15-20%. There is severe global hypokinesis of the left ventricle. Right Ventricle The right ventricle is normal in size and function. Atria The left atrium is mildly dilated. Right atrial size is normal. Mitral Valve MV ring present. There is mild mitral regurgitation. Tricuspid Valve There is mild to moderate tricuspid regurgitation. Right ventricular systolic pressure is normal. Aortic Valve The aortic valve is trileaflet. No hemodynamically significant valvular aortic stenosis. No aortic regurgitation is present. Pulmonic Valve There is no pulmonic valvular regurgitation. Great Vessels The aortic root is normal size. Pericardium/Pleura There is no pericardial effusion. Interpretation Summary The left ventricle is normal in size. Left ventricular systolic function is severely reduced. There is severe global hypokinesis of the left ventricle. The right ventricle is normal in size and function. The left atrium is mildly dilated. MV ring present. There is mild mitral regurgitation. There is mild to moderate tricuspid regurgitation. MD Lobo Thomason 01/18/2019 02:09 PM
--- NOTE | 2019-01-18 14:09 | PN ---
Teaching Attending Note Name of Resident: Dameon Celaya ATTENDING PHYSICIAN STATEMENT I saw and evaluated the patient. I reviewed the resident's note and discussed the case with the resident. I agree with the resident's findings and plan as documented. SUBJECTIVE: Pt seen and examined in the ICU. No further bleeding. Received 2 units PRBC yesterday. Denies shortness of breath or chest pain. OBJECTIVE: Vital Signs Period Temp Pulse Resp BP Sys/Reyes Pulse Ox Last 24 Hr 97.5 F-98.6 F 65-103 17-20 106-144/64-80 100-100 Intake & Output 01/15/19 01/16/19 01/17/19 01/18/19 23:59 23:59 23:59 23:59 Intake Total 2940 2986 1570 Output Total 600 1100 1850 300 Balance -600 1840 1136 1270 Weight 75.296 kg 65.771 kg 67.585 kg 65.726 kg Gen: NAD at rest Heart: RRR Lung: decreased breath sounds at the bases Abd: soft, nontender Ext: no edema CBC, BMP 01/18/19 05:30 01/18/19 05:30 Active Medications Albuterol/Ipratropium (Duoneb -) 1 amp NEB Q6H PRN PRN Reason: SHORTNESS OF BREATH Chlorhexidine Gluconate (Hibiclens For Decolonization -) 1 applic TP HS ELLIE Last Admin: 01/17/19 21:23 Dose: 1 applic Pantoprazole Sodium 80 mg/ (Sodium Chloride) 100 mls @ 10 mls/hr IVPB Q10H ELLIE Last Admin: 01/18/19 05:23 Dose: Not Given Octreotide Acetate 1,200 mcg/ (Dextrose) 500 mls @ 20.83 mls/hr IVPB Q24H ELLIE; Protocol Last Admin: 01/17/19 23:30 Dose: 20.83 mls/hr Ceftriaxone Sodium 1 gm/ (Dextrose) 50 mls @ 100 mls/hr IVPB DAILY ELLIE; Protocol Last Admin: 01/18/19 09:37 Dose: 100 mls/hr Sodium Chloride (Normal Saline -) 1,000 mls @ 100 mls/hr IV ASDIR ELLIE Last Admin: 01/18/19 00:48 Dose: 100 mls/hr Mupirocin (Bactroban Ointment (For Decolonization) -) 1 applic NS BID ELLIE Stop: 01/20/19 09:59 Last Admin: 01/18/19 09:38 Dose: 1 applic ASSESSMENT AND PLAN: GI Bleed Likely Upper Acute Blood Loss Anemia Acute Kidney Injury CAD s/p CABG and recent stents Severe LV Systolic Dysfunction COPD HTN Hyperlipidemia Alcohol Abuse - monitor H/H - transfuse as needed - continue protonix, octreotide gtts for now - empiric antibiotics - IVF boluses as needed - monitor urine output, creatinine - NPO - for transfer to [place] for high risk endoscopy - inhaled bronchodilators - O2 to keep spO2 >90% - DVT prophylaxis
--- NOTE | 2019-01-18 14:41 | PN.GI ---
GI Progress Note Subjective: No overt bleeding Stable hemodynamics EGD deferred yesterday: Cardiology / Anesthesia has concerns: given cardiac history, recent stenting, prefer interventions performed at [facility]. - Objective Vital Signs: Vital Signs Temperature 98.6 F 01/18/19 14:08 Pulse Rate 76 01/18/19 14:08 Respiratory Rate 19 01/18/19 12:00 Blood Pressure 110/72 01/18/19 14:08 O2 Sat by Pulse Oximetry (%) 100 01/18/19 09:00 Constitutional: Calm Eyes: No: Sclera Icterus Cardiovascular: Yes: Regular Rate and Rhythm. No: Murmur Respiratory: Yes: CTA Bilaterally Gastrointestinal Inspection: No: Distention ...Auscultate: Yes: Normoactive Bowel Sounds ...Palpate: Yes: Soft, Tenderness Edema: No (No LE edema) Labs: CBC, BMP 01/18/19 05:30 01/18/19 05:30 INR, PTT INR 0.98 (0.83-1.09) 01/18/19 05:30 Hepatic Panel Total Bilirubin 0.9 mg/dL (0.2-1) 01/18/19 05:30 AST 15 U/L (15-37) 01/18/19 05:30 ALT 12 U/L (13-61) L 01/18/19 05:30 Alkaline Phosphatase 46 U/L (45-117) 01/18/19 05:30 Albumin 2.6 g/dl (3.4-5.0) L 01/18/19 05:30 Problem List - Problems (1) GI bleed Assessment/Plan: No overt bleeding today Stable H/H EGD deferred here as noted in subjective Continue supportive measures: PPI / Octreotide for now NPO Monitor magnesium levels whil while on PPI drip Pending Xfer to [facility] Discussed with patient and family (2 daughters) wjho were present at bedside Code(s): K92.2 - GASTROINTESTINAL HEMORRHAGE, UNSPECIFIED Qualifiers: GI bleed type/associated pathology: melena Qualified Code(s): K92.1 - Melena
[2019-01-18] MEDS: OCTREOTIDE ACETATE 1,200 MCG in DEXTROSE 5%-WATER - 488 ML IVPB SCH (15:14)
[2019-01-18] MEDS ORDERED: INSULIN (NOVOLOG) ASPART 100 UNITS/ML 10ML VIAL ONE (16:27)
--- NOTE | 2019-01-18 17:22 | PN ---
Teaching Attending Note Name of Resident: Anup Sheikh ATTENDING PHYSICIAN STATEMENT I saw and evaluated the patient. I reviewed the resident's note and discussed the case with the resident. I agree with the resident's findings and plan as documented. SUBJECTIVE:asymptomatic. denies CP, SOB, fever, chills, N/V/C/D, hemetemsis, melena OBJECTIVE: Last Vital Signs Temp Pulse Resp BP Pulse Ox 98.6 F 76 19 110/72 100 01/18/19 14:08 01/18/19 14:08 01/18/19 12:00 01/18/19 14:08 01/18/19 09:00 General NAD CV S1 S2 RRR no murmur/rub/gallop Lungs CTA anteriorly ABdomen soft NT/ND ASSESSMENT AND PLAN: 67 yo M with PMHx of CAD s/p CABG (2002), cardiac stents 2018, systolic CHF, active heavy smoker x35 years, COPD, HTN, HLD came to hospital for vomiting and found to be developing hemovolemic shock due to acute blood loss anemia suspected from upper GI bleed 1. Hypovolemic shock-now resolved. adequately volume resuscitated. did not require pressors. BP stable. cont to hold oral agents. lactic acidosis resolved 2. GI bleed- liekly upper. on duapt. denies NSAID use. no signs of bleeding. NPO for EGD at [facility]. awaiting transfer. NPO, IVF, PPI and octreotide ggt. empiric abx with ceftriaxone. GI on board 3. acute blood loss anemia- received 5 units PRBC this hospital stay. Hgb stable. no signs of active bleeding 4. Severe hypokalemia- resolved 5. Hypophosphatemia- resolved 6. OLIMPIA- due to hypoperfusion. improved. cont to monitor I&O closely. avoid nephrotoxic agents 7. CAD s/p CABG and stents recently placed- trop neg x1. cardio consulted. will hold DUAPT at this time 8. systolic CHF- no signs of volume overload. will need to monitor closely during volume resuscitation. hold diuretics/statin. 9. HTN- currently hypotensive. hold oral agents 10. COPD- no signs of exacerbation. 11. dyslipidemia- hold statins 12. DVT ppx- SCD. hold pharmacologic anticoagulation 13. MICU monitoring. plan for transfer to [place] for EGD as pt is high cardiac risk The care of this patient involved high complexity decision making to prevent further life threatening deterioration of the patient's condition and/or to evaluate & treat vital organ system(s) failure or risk of failure. 36 mins
--- NOTE | 2019-01-18 17:46 | PN ---
Physical Exam: SUBJECTIVE: No acute bleeding events overnight. Pt. denies having a BM. Pt. states he is hungry. OBJECTIVE: Vital Signs Period Temp Pulse Resp BP Sys/Reyes Pulse Ox Last 24 Hr 97.5 F-98.6 F 65-103 17-20 106-144/64-77 100-100 GENERAL: The patient is awake, alert, and fully oriented, in no acute distress. HEAD: Normal with no signs of trauma. EYES: No scleral icterus today ENT: Ears normal, nares patent, dry mucous membranes. NECK: Trachea midline, full range of motion, supple. LUNGS: Breath sounds equal, clear to auscultation bilaterally, no wheezes, no crackles, no accessory muscle use. HEART: Regular rate and rhythm, S1, S2 without murmur ABDOMEN: Soft, nontender, nondistended, normoactive bowel sounds, no guarding, no rebound EXTREMITIES: 2+ radial pulses, warm, no calf tenderness, well-perfused, no edema. NEUROLOGICAL: Normal speech, gait not observed. PSYCH: Normal mood, normal affect. SKIN: Warm, dry, normal turgor, no rashes or lesions noted Laboratory Results - last 24 hr 01/15/19 01/18/19 01/18/19 06:07 05:30 05:30 WBC 6.7 RBC 3.30 L Hgb 9.6 L Hct 28.5 L MCV 86.4 MCH 29.1 MCHC 33.7 RDW 17.4 H Plt Count 138 MPV 8.2 PT with INR INR Sodium 137 Potassium 4.6 Chloride 110 H Carbon Dioxide 22 Anion Gap 5 L BUN 18 Creatinine 1.2 Creat Clearance w eGFR 60.03 Random Glucose 102 Calcium 8.0 L Phosphorus 3.0 Magnesium 1.6 L Total Bilirubin 0.9 AST 15 ALT 12 L Alkaline Phosphatase 46 Total Protein 5.2 L Albumin 2.6 L Blood Type A POSITIVE Antibody Screen Negative Crossmatch See Detail 01/18/19 05:30 WBC RBC Hgb Hct MCV MCH MCHC RDW Plt Count MPV PT with INR 11.60 INR 0.98 Sodium Potassium Chloride Carbon Dioxide Anion Gap BUN Creatinine Creat Clearance w eGFR Random Glucose Calcium Phosphorus Magnesium Total Bilirubin AST ALT Alkaline Phosphatase Total Protein Albumin Blood Type Antibody Screen Crossmatch Active Medications Home Medications Medication Instructions Recorded Allopurinol [Zyloprim -] 300 mg PO DAILY 05/20/18 Aspirin [ASA -] 81 mg PO DAILY tab.chew 05/31/18 Clopidogrel Bisulfate [Plavix -] 75 mg PO DAILY tablet 05/31/18 Atorvastatin Ca [Lipitor] 40 mg PO HS 01/15/19 Furosemide [Lasix -] 40 mg PO DAILY 01/15/19 Isosorbide Mononitrate [Isosorbide 30 mg PO DAILY 01/15/19 Mononitrate ER] Lisinopril 5 mg PO DAILY 01/15/19 Metoprolol Tartrate [Lopressor -] 25 mg PO DAILY 01/15/19 Spironolactone 25 mg PO DAILY 01/15/19 Current Medications Albuterol/Ipratropium (Duoneb -) 1 amp NEB Q6H PRN PRN Reason: SHORTNESS OF BREATH Chlorhexidine Gluconate (Hibiclens For Decolonization -) 1 applic TP HS [facility] Last Admin: 01/17/19 21:23 Dose: 1 applic Pantoprazole Sodium 80 mg/ (Sodium Chloride) 100 mls @ 10 mls/hr IVPB Q10H [facility] Last Admin: 01/18/19 05:23 Dose: Not Given Octreotide Acetate 1,200 mcg/ (Dextrose) 500 mls @ 20.83 mls/hr IVPB Q24H [facility]; Protocol Last Admin: 01/18/19 15:14 Dose: 20.83 mls/hr Ceftriaxone Sodium 1 gm/ (Dextrose) 50 mls @ 100 mls/hr IVPB DAILY [facility]; Protocol Last Admin: 01/18/19 09:37 Dose: 100 mls/hr Sodium Chloride (Normal Saline -) 1,000 mls @ 100 mls/hr IV ASDIR ELLIE Last Admin: 01/18/19 15:14 Dose: 100 mls/hr Mupirocin (Bactroban Ointment (For Decolonization) -) 1 applic NS BID [facility] Stop: 01/20/19 09:59 Last Admin: 01/18/19 09:38 Dose: 1 applic ASSESSMENT/PLAN: 68 year old male with a hx of CAD s/p CABG (2002), cardiac stent placement x3 last year on ASA/plavix, CHF w/ 15% EF, COPD, HTN, HLD, and ethanol abuse presenting to the hospital for vomiting of 1 day duration and admitted for acute gastrointestinal bleeding. #Acute Gastrointestinal Bleed Based on clinical history Pt. likely has Upper GI bleed ( 2+ drinks/day, on DAPT , and coffee ground emesis) HgB dropped to 6.4 on admission from a baseline of 11-12 in 2018 (of note was up to 13-14 in prior years) c/w IVF Hold ASA and Plavix NPO s/p 3 units--> HgB 8.3-->6.9-->given 2 units--> 9.7-->9.6 LA wnl 3.9-->3.4-->1.6-->1.4 c/w Octreotide drip c/w Protonix drip c/w Ceftriaxone GI consult appreciated (Dr. Avila)--> given Pt.'s cardiac risk decision was made to transfer Pt. to tertiary level care facility. Frances score indicates 2.4 % risk of GA within 30 days. ELIM IRA II score is 14 points indicating 15% mortality risk Awaiting Transfer as Cardiology and Anesthesia believe that it is unsafe to manage possible complication of a therapeutic EGD. #Atrial Fibrillation Echo: in 05/2018 showed: EF 15-20%, with severe global hypokinesis and LV dilatation with severe MR now in sinus rhythm c/w Tele monitoring Hold Metoprolol Can rate control with amiodarone drip if needed Hold AC in setting of GI bleed Cardiology consult (Dr. Marie) appreciated. Will resume anticoagulation/ antiplatelets agents as per Cardiology recommendations. Awaiting transfer to [facility] per Cardiology request. #CAD s/p 3 stents in 09/2018 and was on dual antiplatelets at home hold antiplatelet agents hold Isosorbide mononitrate as BP has been low #CHFrEF Echo noted as above Hold Aldactone and Lasix #HTN hold Lisinopril and #HLD hold statin #FEN NS @ 100ml/hr (given Hx. of CHF and poor EF) monitor electrolytes and replete as needed (K+ and Phos repleted) NPO #Prophylaxis SCDs only #Disposition ICU- Full Code
[2019-01-18] MEDS: CHLORHEXIDINE GLUCONATE 4% CLEANSER FOR DECOLONIZATION TP SCH (21:11)
[2019-01-19] MEDS: PANTOPRAZOLE SODIUM 80 MG in SODIUM CHLORIDE 100 ML IVPB SCH ×3 (01:33→21:55)
[2019-01-19 07:21] LABS: HEMATOCRIT 27.9 % (35.4-49); HEMOGLOBIN 9.5 GM/dL (11.7-16.9); MCH 29.4 pg (25.7-33.7); MCHC 33.9 g/dl (32.0-35.9); MEAN CELL VOLUME 86.5 fl (80-96); MEAN PLT VOLUME 8.5 fl (7.5-11.1); PLATELET COUNT 157 K/MM3 (134-434); RBC 3.23 M/mm3 (4.00-5.60); RDW 17.6 % (11.9-15.9); WHITE BLOOD COUNT 6.4 K/mm3 (4.0-10.0)
[2019-01-19 07:29] LABS: ALBUMIN 2.5 g/dl (3.4-5.0); ALK PHOS 46 U/L (45-117); ANION GAP 7 MMOL/L (8-16); BILIRUBIN,TOTAL 0.8 mg/dL (0.2-1); BLOOD UREA NITROGEN 13 mg/dL (7-18); CALCIUM 7.7 mg/dL (8.5-10.1); CHLORIDE 110 mmol/L (98-107); CO2 18 mmol/L (21-32); GLUCOSE,RANDOM 76 mg/dL (74-106); MAGNESIUM 1.6 mg/dL (1.8-2.4); PHOSPHOROUS 2.8 mg/dL (2.5-4.9); POTASSIUM 4.4 mmol/L (3.5-5.1); SGOT/AST 16 U/L (15-37); SGPT/ALT 11 U/L (13-61); SODIUM 134 mmol/L (136-145)
[2019-01-19] MEDS ORDERED: MAGNESIUM SULF 50% (8.12 MEQ/2 ML-1 GM VIAL) IVPB ONE ×2 (07:40→08:45)
--- NOTE | 2019-01-19 08:57 | PN ---
Progress Note, Physician History of Present Illness: Patient is a 68 y/o male with a history of HTN, HLD, CAD s/p CABG, CHF, and COPD who presents for hematemesis. Patient had multiple episodes of dark vomiting this morning. Patient reports he also had an episode of dark vomiting last week. Patient has also been having dark stools. he drinks half a pint of alcohol a day, reporting his last drink was on tuesday. He has had a colonoscopy in the past only with polyps found. He has never had an upper endoscopy. PCI LAD Sep 2018 - Current Medication List Current Medications: Active Medications Albuterol/Ipratropium (Duoneb -) 1 amp NEB Q6H PRN PRN Reason: SHORTNESS OF BREATH Chlorhexidine Gluconate (Hibiclens For Decolonization -) 1 applic TP HS [facility] Last Admin: 01/18/19 21:11 Dose: 1 applic Pantoprazole Sodium 80 mg/ (Sodium Chloride) 100 mls @ 10 mls/hr IVPB Q10H [facility] Last Admin: 01/19/19 01:33 Dose: Not Given Octreotide Acetate 1,200 mcg/ (Dextrose) 500 mls @ 20.83 mls/hr IVPB Q24H ELLIE; Protocol Last Admin: 01/18/19 15:14 Dose: 20.83 mls/hr Ceftriaxone Sodium 1 gm/ (Dextrose) 50 mls @ 100 mls/hr IVPB DAILY [facility]; Protocol Last Admin: 01/18/19 09:37 Dose: 100 mls/hr Sodium Chloride (Normal Saline -) 1,000 mls @ 100 mls/hr IV ASDIR ELLIE Last Admin: 01/18/19 15:14 Dose: 100 mls/hr Mupirocin (Bactroban Ointment (For Decolonization) -) 1 applic NS BID ELLIE Stop: 01/20/19 09:59 Last Admin: 01/18/19 21:09 Dose: 1 applic - Objective Vital Signs: Vital Signs Temperature 97.9 F 01/19/19 08:00 Pulse Rate 70 01/19/19 08:00 Respiratory Rate 20 01/19/19 08:00 Blood Pressure 112/98 01/19/19 08:00 O2 Sat by Pulse Oximetry (%) 100 01/19/19 08:00 Eyes: Yes: WNL, Conjunctiva Clear, EOM Intact HENT: Yes: WNL, Atraumatic, Normocephalic Neck: Yes: WNL, Supple, Trachea Midline Cardiovascular: Yes: WNL, Regular Rate and Rhythm Respiratory: Yes: WNL, Regular, CTA Bilaterally Gastrointestinal: Yes: WNL, Normal Bowel Sounds Genitourinary: Yes: WNL Musculoskeletal: Yes: WNL Extremities: Yes: WNL Edema: No Integumentary: Yes: WNL Neurological: Yes: WNL, Alert, Oriented ...Motor Strength: WNL Psychiatric: Yes: WNL Labs: CBC, BMP 01/19/19 05:30 01/19/19 05:30 INR, PTT INR 0.98 (0.83-1.09) 01/18/19 05:30 Assessment/Plan - Problems (1) Alcohol addiction Assessment/Plan: no reported DTs Code(s): F10.20 - ALCOHOL DEPENDENCE, UNCOMPLICATED Qualifiers: Substance use status: uncomplicated Qualified Code(s): F10.20 - Alcohol dependence, uncomplicated (2) Anemia Assessment/Plan: s/p PRBCs x 2 yesterday; Hb now 9.6. Pt awaits transfer to [facility] for further GI and cardiac evaluation ( EGD cancelled yesterday: pt was hypotensive, severely anemic, and has recnet hx of LAD DE Stent, severely reduced LVEF; he multiple risks were felt better handled at [facility]. Pt's cardiac interventionalist, Dr. Veronica, is aware and awatis tranfer. Code(s): D64.9 - ANEMIA, UNSPECIFIED Qualifiers: Anemia type: unspecified type Qualified Code(s): D64.9 - Anemia, unspecified (3) CAD (coronary artery disease) Code(s): I25.10 - ATHSCL HEART DISEASE OF [place] CORONARY ARTERY W/O ANG PCTRS Qualifiers: Coronary Disease-Associated Artery/Lesion type: unspecified vessel or lesion type [place] vs. transplanted heart: [place] heart Associated angina: without angina Qualified Code(s): I25.10 - Atherosclerotic heart disease of [place] coronary artery without angina pectoris (4) GI bleed Assessment/Plan: s/p PRBCs x 2 yesterday; f/u GI, heme w/u. Code(s): K92.2 - GASTROINTESTINAL HEMORRHAGE, UNSPECIFIED Qualifiers: GI bleed type/associated pathology: melena Qualified Code(s): K92.1 - Melena (5) S/P coronary artery stent placement Code(s): Z95.5 - PRESENCE OF CORONARY ANGIOPLASTY IMPLANT AND GRAFT (6) Acute on chronic systolic and diastolic heart failure, NYHA class 3 Assessment/Plan: Restart carvedilol 3.125 mg bid, and increase as tolerated (hypotensive yesterday, however). Lisinorpril 2.5 mg qd and sprionolactone 25 mg qd if not contraindicated from hemodynamic, renal standpoint (f/u BUn/Cr and K+ today after fluids before starting these). F/u repeat ECHO for LVEF, valve status (severely reduced LVEF, severe MR on 2017 ECHO). Code(s): I50.43 - ACUTE ON CHRONIC COMBINED SYSTOLIC AND DIASTOLIC HRT FAIL (7) Elevated LFTs Code(s): R94.5 - ABNORMAL RESULTS OF LIVER FUNCTION STUDIES (8) Generalized weakness Code(s): R53.1 - WEAKNESS (9) Hx of CABG Code(s): Z95.1 - PRESENCE OF AORTOCORONARY BYPASS GRAFT (10) Hypoalbuminemia Code(s): E88.09 - OTH DISORDERS OF PLASMA-PROTEIN METABOLISM, NEC (11) Renal dysfunction Code(s): N28.9 - DISORDER OF KIDNEY AND URETER, UNSPECIFIED Assessment/Plan CCU time spent: 35 minutes.
[2019-01-19] MEDS ORDERED: cefTRIAXone SODIUM 1 GM VIAL ONE (09:05)
[2019-01-19] MEDS ORDERED: DEXTROSE 5%-WATER - 50 ML IVPB ONE (09:05)
[2019-01-19] MEDS: CEFTRIAXONE 1 GM in DEXTROSE 5%-WATER - 50 ML IVPB SCH (09:13)
--- NOTE | 2019-01-19 09:47 | PN ---
Progress Note (short form) - Note Progress Note: No bleeding. H/H stable. Still awaiting transfer. OK for clears. Continue PPI. Problem List - Problems (1) GI bleed Code(s): K92.2 - GASTROINTESTINAL HEMORRHAGE, UNSPECIFIED Qualifiers: GI bleed type/associated pathology: melena Qualified Code(s): K92.1 - Melena
[2019-01-19] MEDS: MUPIROCIN 2% TOPICAL OINTMENT FOR DECOLONIZATION NS SCH ×2 (09:57→21:55)
--- NOTE | 2019-01-19 12:05 | PN ---
Teaching Attending Note Name of Resident: Sparkle Nguyễn ATTENDING PHYSICIAN STATEMENT I saw and evaluated the patient. I reviewed the resident's note and discussed the case with the resident. I agree with the resident's findings and plan as documented. SUBJECTIVE: Pt seen and examined in the ICU. No further bleeding. Remains on protonix, octreotide gtts. Awaiting transfer to [place]. OBJECTIVE: Vital Signs Period Temp Pulse Resp BP Sys/Reyes Pulse Ox Last 24 Hr 97.9 F-98.6 F 70-98 18-20 109-123/54-98 100-100 Intake & Output 01/16/19 01/17/19 01/18/19 01/19/19 23:59 23:59 23:59 23:59 Intake Total 2940 2986 3190.8 1820 Output Total 1100 1850 1050 220 Balance 1840 1136 2140.8 1600 Weight 65.771 kg 67.585 kg 65.726 kg 65.726 kg Gen: NAD at rest Heart: RRR Lung: decreased breath sounds at the bases Abd: soft, nontender Ext: no edema CBC, BMP 01/19/19 05:30 01/19/19 05:30 Active Medications Albuterol/Ipratropium (Duoneb -) 1 amp NEB Q6H PRN PRN Reason: SHORTNESS OF BREATH Chlorhexidine Gluconate (Hibiclens For Decolonization -) 1 applic TP HS ELLIE Last Admin: 01/18/19 21:11 Dose: 1 applic Pantoprazole Sodium 80 mg/ (Sodium Chloride) 100 mls @ 10 mls/hr IVPB Q10H ELLIE Last Admin: 01/19/19 11:09 Dose: 10 mls/hr Octreotide Acetate 1,200 mcg/ (Dextrose) 500 mls @ 20.83 mls/hr IVPB Q24H ELLIE; Protocol Last Admin: 01/18/19 15:14 Dose: 20.83 mls/hr Ceftriaxone Sodium 1 gm/ (Dextrose) 50 mls @ 100 mls/hr IVPB DAILY E[facility]; Protocol Last Admin: 01/19/19 09:13 Dose: 100 mls/hr Sodium Chloride (Normal Saline -) 1,000 mls @ 100 mls/hr IV ASDIR ELLIE Last Admin: 01/18/19 15:14 Dose: 100 mls/hr Mupirocin (Bactroban Ointment (For Decolonization) -) 1 applic NS BID ELLIE Stop: 01/20/19 09:59 Last Admin: 01/19/19 09:57 Dose: 1 applic ASSESSMENT AND PLAN: GI Bleed Likely Upper Acute Blood Loss Anemia Acute Kidney Injury CAD s/p CABG and recent stents Severe LV Systolic Dysfunction COPD HTN Hyperlipidemia Alcohol Abuse - monitor H/H - transfuse as needed - continue protonix, octreotide gtts for now - empiric antibiotics - IVF boluses as needed - monitor urine output, creatinine - PO per GI - for transfer to [place] for high risk endoscopy - inhaled bronchodilators - O2 to keep spO2 >90% - DVT prophylaxis - can monitor on telemetry
[2019-01-19] MEDS: SODIUM CHLORIDE 1,000 ML IV SCH ×2 (12:42→14:15)
[2019-01-19] MEDS: OCTREOTIDE ACETATE 1,200 MCG in DEXTROSE 5%-WATER - 488 ML IVPB SCH ×2 (13:00→17:39)
--- NOTE | 2019-01-19 13:30 | PN ---
Teaching Attending Note Name of Resident: Anup Sheikh ATTENDING PHYSICIAN STATEMENT I saw and evaluated the patient. I reviewed the resident's note and discussed the case with the resident. I agree with the resident's findings and plan as documented. SUBJECTIVE:asymptomatic. denies CP, SOB, fever, chills, N/V/C/D or melena OBJECTIVE: Last Vital Signs Temp Pulse Resp BP Pulse Ox 97.4 F L 76 19 109/80 100 01/19/19 13:13 01/19/19 13:13 01/19/19 13:13 01/19/19 12:00 01/19/19 08:00 General NAD CV S1 S2 RRR no murmur/rub/gallop Lungs CTA anteriorly ABdomen soft NT/ND ASSESSMENT AND PLAN: 67 yo M with PMHx of CAD s/p CABG (2002), cardiac stents 2018, systolic CHF, active heavy smoker x35 years, COPD, HTN, HLD came to hospital for vomiting and found to be developing hemovolemic shock due to acute blood loss anemia suspected from upper GI bleed 1. Hypovolemic shock-now resolved. adequately volume resuscitated. did not require pressors. BP stable. cont to hold oral agents. lactic acidosis resolved 2. GI bleed- liekly upper. on duapt. denies NSAID use. no signs of bleeding. NPO for EGD at [facility]. awaiting transfer. NPO, IVF, PPI, can d/c octreotide ggt. empiric abx with ceftriaxone. GI on board 3. acute blood loss anemia- received 5 units PRBC this hospital stay. Hgb stable. no signs of active bleeding 4. Severe hypokalemia- resolved 5. Hypophosphatemia- resolved 6. OLIMPIA- due to hypoperfusion. improved. cont to monitor I&O closely. avoid nephrotoxic agents 7. CAD s/p CABG and stents recently placed- trop neg x1. cardio consulted. will hold DUAPT at this time 8. systolic CHF- no signs of volume overload. will need to monitor closely during volume resuscitation. hold diuretics/statin. 9. HTN- currently hypotensive. hold oral agents 10. COPD- no signs of exacerbation. 11. dyslipidemia- hold statins 12. DVT ppx- SCD. hold pharmacologic anticoagulation 13. MICU monitoring. plan for transfer to [place] for EGD as pt is high cardiac risk The care of this patient involved high complexity decision making to prevent further life threatening deterioration of the patient's condition and/or to evaluate & treat vital organ system(s) failure or risk of failure. 36 mins
--- NOTE | 2019-01-19 16:05 | PN ---
Physical Exam: SUBJECTIVE: Patient seen this morning and agitated he is still here. No evidence of bleeding overnight. OBJECTIVE: Vital Signs Temperature 97.4 F L 01/19/19 13:13 Pulse Rate 71 01/19/19 14:00 Respiratory Rate 17 01/19/19 14:00 Blood Pressure 119/79 01/19/19 14:00 O2 Sat by Pulse Oximetry (%) 100 01/19/19 08:00 GENERAL: Awake, alert, and fully oriented, in no acute distress. HEAD: Normal with no signs of trauma. EYES: bilateral cataracts LUNGS: Breath sounds equal, clear to auscultation bilaterally. No wheezes, and no crackles. No accessory muscle use. HEART: Regular rate and rhythm, no murmurs heard ABDOMEN: Soft, nontender, not distended, normoactive bowel sounds, no guarding, no rebound, no masses. LOWER EXTREMITIES: 2+ pulses, warm, well-perfused. No calf tenderness. No peripheral edema. SKIN: Warm, dry, normal turgor, no rashes or lesions noted. CBCD WBC 6.4 K/mm3 (4.0-10.0) 01/19/19 05:30 RBC 3.23 M/mm3 (4.00-5.60) L 01/19/19 05:30 Hgb 9.5 GM/dL (11.7-16.9) L 01/19/19 05:30 Hct 27.9 % (35.4-49) L 01/19/19 05:30 MCV 86.5 fl (80-96) 01/19/19 05:30 MCHC 33.9 g/dl (32.0-35.9) 01/19/19 05:30 RDW 17.6 % (11.9-15.9) H 01/19/19 05:30 Plt Count 157 K/MM3 (134-434) 01/19/19 05:30 MPV 8.5 fl (7.5-11.1) 01/19/19 05:30 CMP Sodium 134 mmol/L (136-145) L 01/19/19 05:30 Potassium 4.4 mmol/L (3.5-5.1) 01/19/19 05:30 Chloride 110 mmol/L (98-107) H 01/19/19 05:30 Carbon Dioxide 18 mmol/L (21-32) L 01/19/19 05:30 Anion Gap 7 MMOL/L (8-16) L 01/19/19 05:30 BUN 13 mg/dL (7-18) 01/19/19 05:30 Creatinine 1.0 mg/dL (0.55-1.3) 01/19/19 05:30 Creat Clearance w eGFR 74.09 (>60) 01/19/19 05:30 Calcium 7.7 mg/dL (8.5-10.1) L 01/19/19 05:30 Total Bilirubin 0.8 mg/dL (0.2-1) 01/19/19 05:30 AST 16 U/L (15-37) 01/19/19 05:30 ALT 11 U/L (13-61) L 01/19/19 05:30 Alkaline Phosphatase 46 U/L (45-117) 01/19/19 05:30 Total Protein 5.0 g/dl (6.4-8.2) L 01/19/19 05:30 Albumin 2.5 g/dl (3.4-5.0) L 01/19/19 05:30 Active Medications Albuterol/Ipratropium (Duoneb -) 1 amp NEB Q6H PRN PRN Reason: SHORTNESS OF BREATH Chlorhexidine Gluconate (Hibiclens For Decolonization -) 1 applic TP HS ELLIE Last Admin: 01/18/19 21:11 Dose: 1 applic Pantoprazole Sodium 80 mg/ (Sodium Chloride) 100 mls @ 10 mls/hr IVPB Q10H ELLIE Last Admin: 01/19/19 11:09 Dose: 10 mls/hr Octreotide Acetate 1,200 mcg/ (Dextrose) 500 mls @ 20.83 mls/hr IVPB Q24H ELLIE; Protocol Last Admin: 01/19/19 13:00 Dose: Not Given Ceftriaxone Sodium 1 gm/ (Dextrose) 50 mls @ 100 mls/hr IVPB DAILY [facility]; Protocol Last Admin: 01/19/19 09:13 Dose: 100 mls/hr Sodium Chloride (Normal Saline -) 1,000 mls @ 100 mls/hr IV ASDIR ELLIE Last Admin: 01/19/19 12:42 Dose: 100 mls/hr Mupirocin (Bactroban Ointment (For Decolonization) -) 1 applic NS BID ELLIE Stop: 01/20/19 09:59 Last Admin: 01/19/19 09:57 Dose: 1 applic ASSESSMENT/PLAN: Neuro - stable, A& O x3 Cardio - Map consistently above 65, hemodynamics stable - hx CHF, most recent Echo (05/21/18): LV systolic function severly reduced, EF 15-20 - CAD with hx CABG, recent stent, on clopidogrel and aspirin at home, hold clopidogrel and aspirin - hold home BP medications with low BP - continue to monitor closely , f/u CXR Pulmonolgy - on nasal cannula - tolerating O2, maintain above 90% - duonebs prn - ? hx of COPD, no active exacerbation GI - acute GI bleed, likely upper 2/2 to unknown source, cannot rule out variceal bleed with alcohol hx - NPO - protonix drip, octreotide drip - continue octreotide drip until variceal bleeding is ruled out - patient to received five units, hold all AC - no stool hx overnight - lactic acid resolved Renal - OLIPMIA, likely 2/2 to GI bleed and ATN from volume loss - continue fluids, slowly resolving ID - afebrile - unlikely infectious, blood culture shows no pennie - Ceftriaxone 2 gm daily, emperic coverage for possible SBO with alcoholism history Endo - stable FEN - clear liquids per GI and unlikely still bleeding - electrolytes stable - replete magnesium as necessary Dispo: patient to go to [place] today for EGD Visit type - Emergency Visit Emergency Visit: No - New Patient This patient is new to me today: No - Critical Care Critical Care patient: Yes Total Critical Care Time (in minutes): 38 Critical Care Statement: The care of this patient involved high complexity decision making to prevent further life threatening deterioration of the patient 's condition and/or to evaluate & treat vital organ system(s) failure or risk of failure.
[2019-01-19] MEDS ORDERED: PT OWN MED DRAWER 7, Y5N ONE (17:37)
[2019-01-19] MEDS: CHLORHEXIDINE GLUCONATE 4% CLEANSER FOR DECOLONIZATION TP SCH (21:55)
[2019-01-20 06:47] LABS: HEMATOCRIT 29.1 % (35.4-49); HEMOGLOBIN 9.8 GM/dL (11.7-16.9); MCH 29.4 pg (25.7-33.7); MCHC 33.8 g/dl (32.0-35.9); MEAN CELL VOLUME 86.9 fl (80-96); MEAN PLT VOLUME 8.5 fl (7.5-11.1); PLATELET COUNT 184 K/MM3 (134-434); RBC 3.35 M/mm3 (4.00-5.60); RDW 17.6 % (11.9-15.9); WHITE BLOOD COUNT 6.9 K/mm3 (4.0-10.0)
[2019-01-20 07:16] LABS: ALBUMIN 2.7 g/dl (3.4-5.0); ALK PHOS 50 U/L (45-117); ANION GAP 5 MMOL/L (8-16); BILIRUBIN,TOTAL 0.6 mg/dL (0.2-1); BLOOD UREA NITROGEN 9 mg/dL (7-18); CHLORIDE 109 mmol/L (98-107); CO2 21 mmol/L (21-32); CREATININE 1.1 mg/dL (0.55-1.3); GLUCOSE,RANDOM 107 mg/dL (74-106); MAGNESIUM 1.5 mg/dL (1.8-2.4); PHOSPHOROUS 2.8 mg/dL (2.5-4.9); POTASSIUM 4.7 mmol/L (3.5-5.1); SGOT/AST 15 U/L (15-37); SGPT/ALT 12 U/L (13-61); SODIUM 135 mmol/L (136-145); TOT PROT 5.2 g/dl (6.4-8.2)
--- NOTE | 2019-01-20 07:51 | PN ---
Progress Note (short form) - Note Progress Note: resting comfortable. diet advanced to clears and tolerating well. conitnues to have black stools. denies Cp, SOB, fever, chills, N/v/C/D Current Medications Generic Name Dose Route Start Last Admin Trade Name Freq PRN Reason Stop Dose Admin Albuterol/Ipratropium 1 amp 01/15/19 14:46 Duoneb - NEB Q6H PRN SHORTNESS OF BREATH Chlorhexidine Gluconate 1 applic 01/15/19 22:00 01/19/19 21:55 Hibiclens For Decolonization - TP 1 applic HS ELLIE Administration Pantoprazole Sodium 80 mg/ 100 mls @ 10 mls/hr 01/15/19 07:45 01/19/19 21:55 Sodium Chloride IVPB 10 mls/hr Q10H ELLIE Administration 8 MG/HR Octreotide Acetate 1,200 mcg/ 500 mls @ 20.83 mls/hr 01/15/19 13:00 01/19/19 17:39 Dextrose IVPB 20.83 mls/hr Q24H ELLIE Administration Protocol 50 MCG/HR Ceftriaxone Sodium 1 gm/ 50 mls @ 100 mls/hr 01/15/19 12:15 01/19/19 09:13 Dextrose IVPB 100 mls/hr DAILY ELLIE Administration Protocol Sodium Chloride 1,000 mls @ 100 mls/hr 01/15/19 14:15 01/19/19 14:15 Normal Saline - IV Not Given ASDIR ELLIE Mupirocin 1 applic 01/15/19 10:00 01/19/19 21:55 Bactroban Ointment (For Decolonization) - NS 01/20/19 09:59 Not Given BID ELLIE Last Vital Signs Temp Pulse Resp BP Pulse Ox 98.2 F 84 16 117/77 100 01/20/19 06:00 01/20/19 06:00 01/20/19 06:00 01/20/19 06:00 01/19/19 20:14 General NAD CV S1 S2 RRR no murmur/rub/gallop Lungs CTA anteriorly ABdomen soft NT/ND CBCD WBC 6.9 K/mm3 (4.0-10.0) 01/20/19 05:30 RBC 3.35 M/mm3 (4.00-5.60) L 01/20/19 05:30 Hgb 9.8 GM/dL (11.7-16.9) L 01/20/19 05:30 Hct 29.1 % (35.4-49) L 01/20/19 05:30 MCV 86.9 fl (80-96) 01/20/19 05:30 MCHC 33.8 g/dl (32.0-35.9) 01/20/19 05:30 RDW 17.6 % (11.9-15.9) H 01/20/19 05:30 Plt Count 184 K/MM3 (134-434) 01/20/19 05:30 MPV 8.5 fl (7.5-11.1) 01/20/19 05:30 CMP Sodium 135 mmol/L (136-145) L 01/20/19 05:30 Potassium 4.7 mmol/L (3.5-5.1) 01/20/19 05:30 Chloride 109 mmol/L (98-107) H 01/20/19 05:30 Carbon Dioxide 21 mmol/L (21-32) 01/20/19 05:30 Anion Gap 5 MMOL/L (8-16) L 01/20/19 05:30 BUN 9 mg/dL (7-18) 01/20/19 05:30 Creatinine 1.1 mg/dL (0.55-1.3) 01/20/19 05:30 Creat Clearance w eGFR 66.37 (>60) 01/20/19 05:30 Calcium 8.0 mg/dL (8.5-10.1) L 01/20/19 05:30 Total Bilirubin 0.6 mg/dL (0.2-1) 01/20/19 05:30 AST 15 U/L (15-37) 01/20/19 05:30 ALT 12 U/L (13-61) L 01/20/19 05:30 Alkaline Phosphatase 50 U/L (45-117) 01/20/19 05:30 Total Protein 5.2 g/dl (6.4-8.2) L 01/20/19 05:30 Albumin 2.7 g/dl (3.4-5.0) L 01/20/19 05:30 ASSESSMENT AND PLAN: 67 yo M with PMHx of CAD s/p CABG (2002), cardiac stents 2018, systolic CHF, active heavy smoker x35 years, COPD, HTN, HLD came to hospital for vomiting and found to be developing hemovolemic shock due to acute blood loss anemia suspected from upper GI bleed 1. Hypovolemic shock-now resolved. adequately volume resuscitated. did not require pressors. BP stable. cont to hold oral agents. lactic acidosis resolved 2. GI bleed- liekly upper. on duapt. denies NSAID use. continues to have melena , tolerating clears. cont PPI and octreotide ggt. empiric abx with ceftriaxone. GI on board 3. acute blood loss anemia- received 5 units PRBC this hospital stay. Hgb stable. no signs of active bleeding 4. Severe hypokalemia- resolved 5. Hypophosphatemia- resolved 6. hypomagnesemia- Mg 2g 7. OLIMPIA- due to hypoperfusion. improved. cont to monitor I&O closely. avoid nephrotoxic agents 8. CAD s/p CABG and stents recently placed- trop neg x1. cardio consulted. will hold DUAPT at this time 9. systolic CHF- no signs of volume overload. will need to monitor closely during volume resuscitation. hold diuretics/statin. 10. HTN- currently hypotensive. hold oral agents 11. COPD- no signs of exacerbation. 12. dyslipidemia- hold statins 13. DVT ppx- SCD. hold pharmacologic anticoagulation 14. can be downgraded for tele. plan for transfer to [place] for EGD as pt is high cardiac risk The care of this patient involved high complexity decision making to prevent further life threatening deterioration of the patient's condition and/or to evaluate & treat vital organ system(s) failure or risk of failure. 37 mins Visit type - Emergency Visit Emergency Visit: Yes ED Registration Date: 01/15/19 Care time: The patient presented to the Emergency Department on the above date and was hospitalized for further evaluation of their emergent condition. - New Patient This patient is new to me today: No - Critical Care Critical Care patient: No - Discharge Referral Referred to [facility] Med [facility] No
[2019-01-20] MEDS: PANTOPRAZOLE SODIUM 80 MG in SODIUM CHLORIDE 100 ML IVPB SCH ×3 (07:54→17:45)
[2019-01-20] MEDS ORDERED: cefTRIAXone SODIUM 1 GM VIAL ONE (07:57)
[2019-01-20] MEDS ORDERED: DEXTROSE 5%-WATER - 50 ML IVPB ONE (07:57)
[2019-01-20] MEDS ORDERED: MAGNESIUM SULF 50% (8.12 MEQ/2 ML-1 GM VIAL) IVPB ONE (08:31)
[2019-01-20] MEDS: CEFTRIAXONE 1 GM in DEXTROSE 5%-WATER - 50 ML IVPB SCH (09:02)
--- NOTE | 2019-01-20 09:29 | PN ---
Progress Note, Physician History of Present Illness: Patient is a 68 y/o male with a history of HTN, HLD, CAD s/p CABG, CHF, and COPD who presents for hematemesis. Patient had multiple episodes of dark vomiting this morning. Patient reports he also had an episode of dark vomiting last week. Patient has also been having dark stools. he drinks half a pint of alcohol a day, reporting his last drink was on tuesday. He has had a colonoscopy in the past only with polyps found. He has never had an upper endoscopy. PCI LAD Sep 2018 - Current Medication List Current Medications: Active Medications Albuterol/Ipratropium (Duoneb -) 1 amp NEB Q6H PRN PRN Reason: SHORTNESS OF BREATH Chlorhexidine Gluconate (Hibiclens For Decolonization -) 1 applic TP HS ELLIE Last Admin: 01/19/19 21:55 Dose: 1 applic Pantoprazole Sodium 80 mg/ (Sodium Chloride) 100 mls @ 10 mls/hr IVPB Q10H ELLIE Last Admin: 01/20/19 07:54 Dose: Not Given Octreotide Acetate 1,200 mcg/ (Dextrose) 500 mls @ 20.83 mls/hr IVPB Q24H ELLIE; Protocol Last Admin: 01/19/19 17:39 Dose: 20.83 mls/hr Ceftriaxone Sodium 1 gm/ (Dextrose) 50 mls @ 100 mls/hr IVPB DAILY ELLIE; Protocol Last Admin: 01/20/19 09:02 Dose: 100 mls/hr Mupirocin (Bactroban Ointment (For Decolonization) -) 1 applic NS BID ELLIE Stop: 01/20/19 09:59 Last Admin: 01/19/19 21:55 Dose: Not Given - Objective Vital Signs: Vital Signs Temperature 97.7 F 01/20/19 08:00 Pulse Rate 83 01/20/19 08:00 Respiratory Rate 15 01/20/19 08:00 Blood Pressure 108/75 01/20/19 08:00 O2 Sat by Pulse Oximetry (%) 98 01/20/19 08:00 Eyes: Yes: WNL, Conjunctiva Clear, EOM Intact HENT: Yes: WNL, Atraumatic, Normocephalic Neck: Yes: WNL, Supple, Trachea Midline Cardiovascular: Yes: WNL, Regular Rate and Rhythm Respiratory: Yes: WNL, Regular, CTA Bilaterally Gastrointestinal: Yes: WNL, Normal Bowel Sounds Genitourinary: Yes: WNL Musculoskeletal: Yes: WNL Extremities: Yes: WNL Edema: No Integumentary: Yes: WNL Neurological: Yes: WNL, Alert, Oriented ...Motor Strength: WNL Psychiatric: Yes: WNL Labs: CBC, BMP 01/20/19 05:30 01/20/19 05:30 INR, PTT INR 0.98 (0.83-1.09) 01/18/19 05:30 Assessment/Plan - Problems (1) Alcohol addiction Assessment/Plan: no reported DTs Code(s): F10.20 - ALCOHOL DEPENDENCE, UNCOMPLICATED Qualifiers: Substance use status: uncomplicated Qualified Code(s): F10.20 - Alcohol dependence, uncomplicated (2) Anemia Assessment/Plan: s/p PRBCs x 2 yesterday; Hb now 9.6. Pt awaits transfer to [facility] for further GI and cardiac evaluation ( EGD cancelled yesterday: pt was hypotensive, severely anemic, and has recnet hx of LAD DE Stent, severely reduced LVEF; he multiple risks were felt better handled at [facility]. Pt's cardiac interventionalist, Dr. Veronica, is aware and awatis tranfer. Code(s): D64.9 - ANEMIA, UNSPECIFIED Qualifiers: Anemia type: unspecified type Qualified Code(s): D64.9 - Anemia, unspecified (3) CAD (coronary artery disease) Code(s): I25.10 - ATHSCL HEART DISEASE OF [place] CORONARY ARTERY W/O ANG PCTRS Qualifiers: Coronary Disease-Associated Artery/Lesion type: unspecified vessel or lesion type [place] vs. transplanted heart: [place] heart Associated angina: without angina Qualified Code(s): I25.10 - Atherosclerotic heart disease of [place] coronary artery without angina pectoris (4) GI bleed Assessment/Plan: s/p PRBCs x 2 yesterday; f/u GI, heme w/u. Code(s): K92.2 - GASTROINTESTINAL HEMORRHAGE, UNSPECIFIED Qualifiers: GI bleed type/associated pathology: melena Qualified Code(s): K92.1 - Melena (5) S/P coronary artery stent placement Code(s): Z95.5 - PRESENCE OF CORONARY ANGIOPLASTY IMPLANT AND GRAFT (6) Acute on chronic systolic and diastolic heart failure, NYHA class 3 Assessment/Plan: Restart carvedilol 3.125 mg bid, and increase as tolerated (hypotensive yesterday, however). Lisinorpril 2.5 mg qd and sprionolactone 25 mg qd if not contraindicated from hemodynamic, renal standpoint (f/u BUn/Cr and K+ today after fluids before starting these). F/u repeat ECHO for LVEF, valve status (severely reduced LVEF, severe MR on 2017 ECHO). Code(s): I50.43 - ACUTE ON CHRONIC COMBINED SYSTOLIC AND DIASTOLIC HRT FAIL (7) Elevated LFTs Code(s): R94.5 - ABNORMAL RESULTS OF LIVER FUNCTION STUDIES (8) Generalized weakness Code(s): R53.1 - WEAKNESS (9) Hx of CABG Code(s): Z95.1 - PRESENCE OF AORTOCORONARY BYPASS GRAFT (10) Hypoalbuminemia Code(s): E88.09 - OTH DISORDERS OF PLASMA-PROTEIN METABOLISM, NEC (11) Renal dysfunction Code(s): N28.9 - DISORDER OF KIDNEY AND URETER, UNSPECIFIED Assessment/Plan CCU time spent: 35 minutes.
[2019-01-20] MEDS: OCTREOTIDE ACETATE 1,200 MCG in DEXTROSE 5%-WATER - 488 ML IVPB SCH ×2 (10:12→13:00)
[2019-01-20] MEDS ORDERED: PT OWN MED DRAWER 7, Y5N ONE (10:13)
[2019-01-20] MEDS: ACETAMINOPHEN 325 MG TABLET (FP) PO PRN (11:14)
--- NOTE | 2019-01-20 19:19 | PN ---
Progress Note (short form) - Note Progress Note: Seen and examined in Tele room -BP and hgb stable -awaiting bed at [facility] -[facility] to chair this AM Current Medications Acetaminophen (Tylenol -) 650 mg PO Q6H PRN PRN Reason: PAIN LEVEL 4 - 6 Last Admin: 01/20/19 11:14 Dose: 650 mg Albuterol/Ipratropium (Duoneb -) 1 amp NEB Q6H PRN PRN Reason: SHORTNESS OF BREATH Chlorhexidine Gluconate (Hibiclens For Decolonization -) 1 applic TP HS ELLIE Last Admin: 01/19/19 21:55 Dose: 1 applic Pantoprazole Sodium 80 mg/ (Sodium Chloride) 100 mls @ 10 mls/hr IVPB Q10H ELLIE Last Admin: 01/20/19 17:45 Dose: Not Given Octreotide Acetate 1,200 mcg/ (Dextrose) 500 mls @ 20.83 mls/hr IVPB Q24H ELLIE; Protocol Last Admin: 01/20/19 13:00 Dose: Not Given Ceftriaxone Sodium 1 gm/ (Dextrose) 50 mls @ 100 mls/hr IVPB DAILY ELLIE; Protocol Last Admin: 01/20/19 09:02 Dose: 100 mls/hr Vital Signs Period Temp Pulse Resp BP Sys/Reyes Pulse Ox Last 24 Hr 97.4 F-98.7 F 68-94 - 83-118/54-78 98-100 Intake & Output 01/17/19 01/18/19 01/19/19 01/20/19 23:59 23:59 23:59 23:59 Intake Total 2986 3190.8 3969.6 2439.2 Output Total 1850 1050 2050 800 Balance 1136 2140.8 1919.6 1639.2 Weight 67.585 kg 65.726 kg 65.726 kg 67.222 kg Exam: HEENT: PERRL CV: RRR Pulm: CTA Abd: SNTND Neuro: grossly intact CBC, BMP 01/20/19 05:30 01/20/19 05:30 ASSESSMENT AND PLAN: GI Bleed Likely Upper Acute Blood Loss Anemia Acute Kidney Injury CAD s/p CABG and recent stents Severe LV Systolic Dysfunction COPD HTN Hyperlipidemia Alcohol Abuse - monitor H/H - transfuse as needed for Hgb >7.0 - continue protonix 72hr, octreotide 5days gtts - empiric antibiotics - IVF boluses as needed - monitor urine output, creatinine - PO per GI - for transfer to [place] for high risk endoscopy - inhaled bronchodilators - O2 to keep spO2 >90% - DVT prophylaxis - cont telemetry Boerem ACNP CCM/Pulm CCT: 35m
[2019-01-21] MEDS: PANTOPRAZOLE SODIUM 80 MG in SODIUM CHLORIDE 100 ML IVPB SCH ×3 (00:05→10:00)
[2019-01-21] MEDS: CHLORHEXIDINE GLUCONATE 4% CLEANSER FOR DECOLONIZATION TP SCH (00:05)
[2019-01-21 06:50] LABS: HEMATOCRIT 29.6 % (35.4-49); HEMOGLOBIN 10.1 GM/dL (11.7-16.9); MCH 29.5 pg (25.7-33.7); MCHC 33.9 g/dl (32.0-35.9); MEAN PLT VOLUME 8.6 fl (7.5-11.1); PLATELET COUNT 191 K/MM3 (134-434); RBC 3.41 M/mm3 (4.00-5.60); RDW 18.3 % (11.9-15.9); WHITE BLOOD COUNT 6.8 K/mm3 (4.0-10.0)
[2019-01-21 07:25] LABS: ANION GAP 7 MMOL/L (8-16); BLOOD UREA NITROGEN 7 mg/dL (7-18); CALCIUM 8.2 mg/dL (8.5-10.1); CHLORIDE 109 mmol/L (98-107); CO2 20 mmol/L (21-32); CREATININE 1.1 mg/dL (0.55-1.3); GLUCOSE,RANDOM 109 mg/dL (74-106); MAGNESIUM 1.7 mg/dL (1.8-2.4); PHOSPHOROUS 3.2 mg/dL (2.5-4.9); POTASSIUM 4.7 mmol/L (3.5-5.1); SODIUM 136 mmol/L (136-145)
[2019-01-21] MEDS ORDERED: cefTRIAXone SODIUM 1 GM VIAL ONE (09:07)
[2019-01-21] MEDS ORDERED: DEXTROSE 5%-WATER - 50 ML IVPB ONE (09:07)
--- NOTE | 2019-01-21 10:13 | PN ---
Progress Note, Physician History of Present Illness: Patient is a 68 y/o male with a history of HTN, HLD, CAD s/p CABG, CHF, and COPD who presents for hematemesis. Patient had multiple episodes of dark vomiting this morning. Patient reports he also had an episode of dark vomiting last week. Patient has also been having dark stools. he drinks half a pint of alcohol a day, reporting his last drink was on tuesday. He has had a colonoscopy in the past only with polyps found. He has never had an upper endoscopy. PCI LAD Sep 2018 - Current Medication List Current Medications: Active Medications Acetaminophen (Tylenol -) 650 mg PO Q6H PRN PRN Reason: PAIN LEVEL 4 - 6 Last Admin: 01/20/19 11:14 Dose: 650 mg Albuterol/Ipratropium (Duoneb -) 1 amp NEB Q6H PRN PRN Reason: SHORTNESS OF BREATH Chlorhexidine Gluconate (Hibiclens For Decolonization -) 1 applic TP HS ELLIE Last Admin: 01/21/19 00:05 Dose: 1 applic Pantoprazole Sodium 80 mg/ (Sodium Chloride) 100 mls @ 10 mls/hr IVPB Q10H ELLIE Last Admin: 01/21/19 06:13 Dose: Not Given Octreotide Acetate 1,200 mcg/ (Dextrose) 500 mls @ 20.83 mls/hr IVPB Q24H ELLIE; Protocol Last Admin: 01/20/19 13:00 Dose: Not Given Ceftriaxone Sodium 1 gm/ (Dextrose) 50 mls @ 100 mls/hr IVPB DAILY [facility]; Protocol Last Admin: 01/20/19 09:02 Dose: 100 mls/hr - Objective Vital Signs: Vital Signs Temperature 97.9 F 01/21/19 06:00 Pulse Rate 66 01/21/19 08:00 Respiratory Rate 17 01/21/19 08:09 Blood Pressure 106/67 01/21/19 08:00 O2 Sat by Pulse Oximetry (%) 100 01/21/19 08:09 Eyes: Yes: WNL, Conjunctiva Clear, EOM Intact HENT: Yes: WNL, Atraumatic, Normocephalic Neck: Yes: WNL, Supple, Trachea Midline Cardiovascular: Yes: WNL, Regular Rate and Rhythm Respiratory: Yes: WNL, Regular, CTA Bilaterally Gastrointestinal: Yes: WNL, Normal Bowel Sounds Genitourinary: Yes: WNL Musculoskeletal: Yes: WNL Extremities: Yes: WNL Edema: No Integumentary: Yes: WNL Neurological: Yes: WNL, Alert, Oriented ...Motor Strength: WNL Psychiatric: Yes: WNL Labs: CBC, BMP 01/21/19 05:30 01/21/19 05:30 INR, PTT INR 0.98 (0.83-1.09) 01/18/19 05:30 Assessment/Plan - Problems (1) Alcohol addiction Assessment/Plan: no reported DTs Code(s): F10.20 - ALCOHOL DEPENDENCE, UNCOMPLICATED Qualifiers: Substance use status: uncomplicated Qualified Code(s): F10.20 - Alcohol dependence, uncomplicated (2) Anemia Assessment/Plan: s/p PRBCs x 2 yesterday; Hb now 9.6. Pt awaits transfer to [facility] for further GI and cardiac evaluation ( EGD cancelled yesterday: pt was hypotensive, severely anemic, and has recnet hx of LAD DE Stent, severely reduced LVEF; he multiple risks were felt better handled at [facility]. Pt's cardiac interventionalist, Dr. Veronica, is aware and awatis tranfer. Code(s): D64.9 - ANEMIA, UNSPECIFIED Qualifiers: Anemia type: unspecified type Qualified Code(s): D64.9 - Anemia, unspecified (3) CAD (coronary artery disease) Code(s): I25.10 - ATHSCL HEART DISEASE OF [place] CORONARY ARTERY W/O ANG PCTRS Qualifiers: Coronary Disease-Associated Artery/Lesion type: unspecified vessel or lesion type [place] vs. transplanted heart: [place] heart Associated angina: without angina Qualified Code(s): I25.10 - Atherosclerotic heart disease of [place] coronary artery without angina pectoris (4) GI bleed Assessment/Plan: s/p PRBCs x 2 yesterday; f/u GI, heme w/u. Code(s): K92.2 - GASTROINTESTINAL HEMORRHAGE, UNSPECIFIED Qualifiers: GI bleed type/associated pathology: melena Qualified Code(s): K92.1 - Melena (5) S/P coronary artery stent placement Code(s): Z95.5 - PRESENCE OF CORONARY ANGIOPLASTY IMPLANT AND GRAFT (6) Acute on chronic systolic and diastolic heart failure, NYHA class 3 Assessment/Plan: Restart carvedilol 3.125 mg bid, and increase as tolerated (hypotensive yesterday, however). Lisinorpril 2.5 mg qd and sprionolactone 25 mg qd if not contraindicated from hemodynamic, renal standpoint (f/u BUn/Cr and K+ today after fluids before starting these). F/u repeat ECHO for LVEF, valve status (severely reduced LVEF, severe MR on 2017 ECHO). Code(s): I50.43 - ACUTE ON CHRONIC COMBINED SYSTOLIC AND DIASTOLIC HRT FAIL (7) Elevated LFTs Code(s): R94.5 - ABNORMAL RESULTS OF LIVER FUNCTION STUDIES (8) Generalized weakness Code(s): R53.1 - WEAKNESS (9) Hx of CABG Code(s): Z95.1 - PRESENCE OF AORTOCORONARY BYPASS GRAFT (10) Hypoalbuminemia Code(s): E88.09 - OTH DISORDERS OF PLASMA-PROTEIN METABOLISM, NEC (11) Renal dysfunction Code(s): N28.9 - DISORDER OF KIDNEY AND URETER, UNSPECIFIED Assessment/Plan CCU time spent: 35 minutes.
[2019-01-21] MEDS: CEFTRIAXONE 1 GM in DEXTROSE 5%-WATER - 50 ML IVPB SCH (10:59)
--- NOTE | 2019-01-21 11:41 | PN ---
Physical Exam: SUBJECTIVE: Patient seen and examined at bedside. Agitated that he has not been transferred yet. No acute complaints. No hematuria, hematochezia, melena, or n/ v. OBJECTIVE: Vital Signs Period Temp Pulse Resp BP Sys/Reyes Pulse Ox Last 24 Hr 97.9 F-98.7 F 66-90 16-19 106-118/67-81 100-100 GENERAL: The patient is awake, alert, and fully oriented, in no acute distress. HEAD: Normal with no signs of trauma. EYES: No scleral icterus today ENT: Ears normal, nares patent, dry mucous membranes. NECK: Trachea midline, full range of motion, supple. LUNGS: Breath sounds equal, clear to auscultation bilaterally, no wheezes, no crackles, no accessory muscle use. HEART: Regular rate and rhythm, S1, S2 without murmur ABDOMEN: Soft, nontender, nondistended, normoactive bowel sounds, no guarding, no rebound EXTREMITIES: 2+ radial pulses, warm, no calf tenderness, well-perfused, no edema. NEUROLOGICAL: Normal speech, gait not observed. PSYCH: Normal mood, normal affect. SKIN: Warm, dry, normal turgor, no rashes or lesions noted Laboratory Results - last 24 hr 01/21/19 01/21/19 05:30 05:30 WBC 6.8 RBC 3.41 L Hgb 10.1 L Hct 29.6 L MCV 87.0 MCH 29.5 MCHC 33.9 RDW 18.3 H Plt Count 191 MPV 8.6 Sodium 136 Potassium 4.7 Chloride 109 H Carbon Dioxide 20 L Anion Gap 7 L BUN 7 Creatinine 1.1 Creat Clearance w eGFR 66.37 Random Glucose 109 H Calcium 8.2 L Phosphorus 3.2 Magnesium 1.7 L Active Medications Generic Name Dose Route Start Last Admin Trade Name Freq PRN Reason Stop Dose Admin Acetaminophen 650 mg 01/20/19 11:06 01/20/19 11:14 Tylenol - PO 650 mg Q6H PRN Administration PAIN LEVEL 4 - 6 Albuterol/Ipratropium 1 amp 01/15/19 14:46 Duoneb - NEB Q6H PRN SHORTNESS OF BREATH Chlorhexidine Gluconate 1 applic 01/15/19 22:00 01/21/19 00:05 Hibiclens For Decolonization - TP 1 applic HS ELLIE Administration Pantoprazole Sodium 80 mg/ 100 mls @ 10 mls/hr 01/15/19 07:45 01/21/19 10:00 Sodium Chloride IVPB 10 mls/hr Q10H ELLIE Administration 8 MG/HR Octreotide Acetate 1,200 mcg/ 500 mls @ 20.83 mls/hr 01/15/19 13:00 01/20/19 13:00 Dextrose IVPB Not Given Q24H ELLIE Protocol 50 MCG/HR Ceftriaxone Sodium 1 gm/ 50 mls @ 100 mls/hr 01/15/19 12:15 01/21/19 10:59 Dextrose IVPB 100 mls/hr DAILY ELLIE Administration Protocol ASSESSMENT/PLAN: 68 year old male with a hx of CAD s/p CABG (2002), cardiac stent placement x3 last year on ASA/plavix, CHF w/ 15% EF, COPD, HTN, HLD, and ethanol abuse presenting to the hospital for vomiting of 1 day duration and admitted for acute gastrointestinal bleeding. #Acute Gastrointestinal Bleed: improving, Hgb stable -continue IVF -monitor H&H -on octreotide ggt -on protonic ggt -on ceftriaxone -GI consulted, due to cardiac risk and low EF, awaiting transfer to [place] for high-risk endoscopy -CLD #Atrial Fibrillation: now in sinus, holding AC, tele Echo: in 05/2018 showed: EF 15-20%, with severe global hypokinesis and LV dilatation with severe MR Cardiology consult (Dr. Marie) appreciated. Will resume anticoagulation/ antiplatelets agents as per Cardiology recommendations. Awaiting transfer to [facility] per Cardiology request. #CAD s/p 3 stents in 09/2018 and was on dual antiplatelets at home hold antiplatelet agents hold Isosorbide mononitrate as BP has been low #CHFrEF Echo noted as above Hold Aldactone and Lasix #HTN -held antihypertensives #HLD hold statin #FEN -on fluids -monitor electrolytes and replete as needed (K+ and Phos repleted) -CLD #Prophylaxis SCDs only #Disposition ICU- Full Code -may downgrade to tele Visit type - Emergency Visit Emergency Visit: Yes ED Registration Date: 01/15/19 Care time: The patient presented to the Emergency Department on the above date and was hospitalized for further evaluation of their emergent condition. - New Patient This patient is new to me today: No - Critical Care Critical Care patient: No
[2019-01-21] MEDS ORDERED: PT OWN MED DRAWER 7, Y5N ONE (12:55)
[2019-01-21] MEDS: OCTREOTIDE ACETATE 1,200 MCG in DEXTROSE 5%-WATER - 488 ML IVPB SCH (13:07)
--- NOTE | 2019-01-21 13:35 | DS ---
Physical Exam: SUBJECTIVE: Patient seen and examined at bedside. No acute overnight events. Patient denies any episodes of chest pain or shortness of breath. Denies nausea/ vomiting, diarrhea, hematochezia or melena. Patient tolerates clear liquid diet. OBJECTIVE: Vital Signs Period Temp Pulse Resp BP Sys/Reyes Pulse Ox Last 24 Hr 97.9 F-98.7 F 66-90 16-19 106-118/60-81 100-100 PHYSICAL EXAM GENERAL: The patient is awake, alert, and fully oriented, in no acute distress. HEAD: Normal with no signs of trauma. EYES: No scleral icterus today ENT: Ears normal, nares patent, dry mucous membranes. NECK: Trachea midline, full range of motion, supple. LUNGS: Breath sounds equal, clear to auscultation bilaterally, no wheezes, no crackles, no accessory muscle use. HEART: Regular rate and rhythm, S1, S2 without murmur ABDOMEN: Soft, nontender, nondistended, normoactive bowel sounds, no guarding, no rebound EXTREMITIES: 2+ radial pulses, warm, no calf tenderness, well-perfused, no edema. NEUROLOGICAL: Normal speech, gait not observed. PSYCH: Normal mood, normal affect. SKIN: Warm, dry, normal turgor, no rashes or lesions noted LABS Laboratory Results - last 24 hr 01/21/19 01/21/19 05:30 05:30 WBC 6.8 RBC 3.41 L Hgb 10.1 L Hct 29.6 L MCV 87.0 MCH 29.5 MCHC 33.9 RDW 18.3 H Plt Count 191 MPV 8.6 Sodium 136 Potassium 4.7 Chloride 109 H Carbon Dioxide 20 L Anion Gap 7 L BUN 7 Creatinine 1.1 Creat Clearance w eGFR 66.37 Random Glucose 109 H Calcium 8.2 L Phosphorus 3.2 Magnesium 1.7 L HOSPITAL COURSE: Date of Admission:01/15/19 68 year old male with a hx of CAD s/p CABG (2002), cardiac stent placement x3 last year on ASA/plavix, CHF w/ 15% EF, COPD, HTN, HLD, and ethanol abuse presented to the hospital for vomiting of 1 day duration. Patient reported the vomitus is black in color and appears coffee-ground in appearance. Reported never having it happen to him before. Also reported dark stool for 2 weeks. He reports drinking every day around 1/2 pint of gin every day for many years. Denies ever having blood transfusions in the past. Denies NSAID use. Denies being told he has an abnormal heart rhythm. Had a colonoscopy in the past couple years during which he reports they found 16 polyps. Currently, patient denies CP, SOB, nausea, vomiting, abdominal pain, fevers, chills. Patient was admitted for the treatment of acute gastrointestinal bleeding, likely upper GI/ variceal in origin. On admission, patient's hemoglobin was found to be 7, a drop from his baseline of 10. He was aggressively fluid resuscitated and transfused 2U PRBCs in the ICU. He was started on ceftriaxone as well as protonix and octreotide drips. Additionally, patient was found to be in afib with RVR on admission, a new diagnosis for him. He was initially given lopressor, which dropped his BP to 60s /30s. an Echo was performed that showed severe reduction in LV function, global hypokinesis of LV, normal RV, mild to moderate tricuspid regurg and an MV ring present. Ejection fraction was noted to be 15-20%. Due to the patient's cardiac status, it was determined that the patient would benefit from tertiary care referral for high-risk endoscopy. While waiting for a bed, patient's hemoglobin remained stable at around 9-10 and he stopped having nausea/vomiting and dark stools. Prior to transfer, he was begun on a clear liquid diet. Minutes to complete discharge: 35 Discharge Summary Reason For Visit: GASTROINTESTINAL HEMORRHAGE,ATRIAL FIB W RAPID Current Active Problems Acute prerenal azotemia (Acute) Alcohol addiction (Acute) Anemia (Acute) Anemia due to GI blood loss (Acute) CAD (coronary artery disease) (Acute) Chronic combined systolic and diastolic CHF, NYHA class 3 (Acute) GI bleed (Acute) HTN (hypertension) (Acute) Hypokalemia (Acute) Hypovolemia due to hemorrhage (Acute) Melena (Acute) Prerenal acute renal failure (Acute) S/P coronary artery stent placement (Acute) Shortness of breath (Acute) Condition: Stable - Instructions - Home Medications Comprehensive Discharge Medication List: Ambulatory Orders Allopurinol [Zyloprim -] 300 mg PO DAILY 05/20/18 Aspirin [ASA -] 81 mg PO DAILY tab.chew 05/31/18 Clopidogrel Bisulfate [Plavix -] 75 mg PO DAILY tablet 05/31/18 Atorvastatin Ca [Lipitor] 40 mg PO HS 01/15/19 Furosemide [Lasix -] 40 mg PO DAILY 01/15/19 Isosorbide Mononitrate [Isosorbide Mononitrate ER] 30 mg PO DAILY 01/15/19 Lisinopril 5 mg PO DAILY 01/15/19 Metoprolol Tartrate [Lopressor -] 25 mg PO DAILY 01/15/19 Spironolactone 25 mg PO DAILY 01/15/19 This patient is new to me today: No Emergency Visit: No Critical Care patient: No - Discharge Referral Referred to [facility] Med P.C.: No
[2019-01-21] MEDS: ACETAMINOPHEN 325 MG TABLET (FP) PO PRN (15:34)
[2019-01-21 16:24] VITALS: BP 114/73; PULSE 73
[2019-01-21 16:26] VITALS: TEMP 98.1
== END 2019-01-21 16:30 | disposition short-term general hospital (02) | DRG 377 ==
LOC: JER 04:28 → JERBED 07:37 → JICU 09:02
PROVIDERS: ADMIT Internal Medicine; ATTEND Internal Medicine
PROC: 30233N1 Transfusion of Nonautologous Red Blood Cells into Peripheral Vein, Percutaneous Approach (ICD-10-PCS; principal; 2019-01-15)
DX: K92.2 Gastrointestinal hemorrhage, unspecified (principal); R57.1 Hypovolemic shock; E87.2 Acidosis; N17.9 Acute kidney failure, unspecified; D62 Acute posthemorrhagic anemia; I50.42 Chronic combined systolic (congestive) and diastolic (congestive) heart failure; I25.10 Atherosclerotic heart disease of native coronary artery without angina pectoris; Z95.1 Presence of aortocoronary bypass graft; E78.5 Hyperlipidemia, unspecified; I48.91 Unspecified atrial fibrillation; J44.9 Chronic obstructive pulmonary disease, unspecified; I11.0 Hypertensive heart disease with heart failure; E87.6 Hypokalemia; E83.42 Hypomagnesemia; Z95.2 Presence of prosthetic heart valve; F10.20 Alcohol dependence, uncomplicated; E83.39 Other disorders of phosphorus metabolism
CPT/HCPCS: 36415; 36430; 36511; 36600; 71045-TC-FY; 80048; 80053; 82272; 82375; 82803; 83036; 83050; 83605; 83735; 83880; 84100; 84484; 85025; 85027; 85379; 85610; 85730; 86850; 86900; 86901; 86922; 87040; 93005; 93010; 93306-TC; 99285-25; J7030; P9038; P9058

== ENCOUNTER 2019-02-13 11:21 | Emergency (ER) | payer OTHER ==
[2019-02-13 11:34] VITALS: BMI 19.6
--- NOTE | 2019-02-13 12:06 | PDOC ---
Attending Attestation - Resident Resident Name: SchaeferJesse - ED Attending Attestation I have performed the following: I have examined & evaluated the patient, The case was reviewed & discussed with the resident, I agree w/resident's findings & plan, Exceptions are as noted - HPI HPI: 02/13/19 12:04 68-year-old male with past medical history of congestive heart failure with ejection fraction 20-25%, one artery disease status post CABG and 3 stents, COPD , alcohol use presents with hematemesis. The patient was recently admitted earlier this month for hematemesis and melena. The patient was initially seen here not hematoma 6.4 which required 5 units of blood. The patient was transferred to [facility] where he had an endoscopy performed which demonstrated a nonbleeding esophageal ulcer and likely healing Lydia-Cochran tear but no varices. For last 2 days, the patient started endorse melanotic and coffee ground emesis. Started feel generally weak but endorse no abdominal pain. Patient reports he still takes all of his medications including his anticoagulant. Denies any other symptoms. - Physicial Exam PE: 02/13/19 13:28 GENERAL: Awake, alert, and fully oriented, in no acute distress HEAD: No signs of trauma EYES: EOMI, sclera anicteric, conjunctiva clear ENT: Auricles normal inspection, hearing grossly normal, nares patent, NECK: Normal ROM, supple ABDOMEN: Soft, nontender, No guarding, no rebound. No masses EXTREMITIES: Normal range of motion, no edema. No clubbing or cyanosis. No cords, erythema, or tenderness NEUROLOGICAL: Cranial nerves II through XII grossly intact. Normal speech SKIN: Warm, Dry, normal turgor, no rashes or lesions noted. - Medical Decision Making 02/13/19 13:28 Vital Signs Temp Pulse Resp BP Pulse Ox 97.5 F L 88 16 87/63 L 100 02/13/19 11:29 02/13/19 13:01 02/13/19 13:01 02/13/19 13:01 02/13/19 13:01 68-year-old male patient presents with likely upper GI bleed. Patient has a history of esophageal ulcers. We'll initiate Protonix bolus and drip. At this time, hemoglobin is around 11 and the patient's blood pressure is approximately 100/60. Given the complexity of the case, we'll need to chest for the patient to [place] for further management. 02/13/19 13:30 CBC, BMP 02/13/19 12:15 02/13/19 12:15 CMP Sodium 135 mmol/L (136-145) L 02/13/19 12:15 Potassium 4.6 mmol/L (3.5-5.1) 02/13/19 12:15 Chloride 92 mmol/L (98-107) L 02/13/19 12:15 Carbon Dioxide 36 mmol/L (21-32) H 02/13/19 12:15 Anion Gap 7 MMOL/L (8-16) L 02/13/19 12:15 BUN 36 mg/dL (7-18) H 02/13/19 12:15 Creatinine 1.8 mg/dL (0.55-1.3) H 02/13/19 12:15 Est GFR (CKD-EPI)AfAm 43.54 02/13/19 12:15 Est GFR (CKD-EPI)NonAf 37.56 02/13/19 12:15 Random Glucose 104 mg/dL (74-106) 02/13/19 12:15 Calcium 9.3 mg/dL (8.5-10.1) 02/13/19 12:15 Phosphorus 3.8 mg/dL (2.5-4.9) 02/13/19 12:15 Magnesium 2.0 mg/dL (1.8-2.4) 02/13/19 12:15 Total Bilirubin 1.6 mg/dL (0.2-1) H 02/13/19 12:15 AST 353 U/L (15-37) H 02/13/19 12:15 ALT 339 U/L (13-61) H 02/13/19 12:15 Alkaline Phosphatase 344 U/L (45-117) H 02/13/19 12:15 Total Protein 7.3 g/dl (6.4-8.2) 02/13/19 12:15 Albumin 3.5 g/dl (3.4-5.0) 02/13/19 12:15 LFTs are elevated. Will need further investigation at [place]. Has no abdominal tenderness Heart Score/ECG Review #1 ECG reviewed & interpreted by me at: 12:20 02/13/19 13:31 NSR 89, occasional PVCs, TWI V4-V6, no std/roxane, QTC 462 msec
[2019-02-13] MEDS ORDERED: PANTOPRAZOLE SODIUM 40 MG VIAL IVPUSH ONE (12:34)
[2019-02-13 12:36] LABS: BASO % 0.4 % (0-2.0); EOS % 0.3 % (0-4.5); HEMATOCRIT 35.7 % (35.4-49); HEMOGLOBIN 11.3 GM/dL (11.7-16.9); LYMPH % 14.6 % (8-40); MCH 27.5 pg (25.7-33.7); MCHC 31.6 g/dl (32.0-35.9); MEAN CELL VOLUME 87.1 fl (80-96); MEAN PLT VOLUME 9.1 fl (7.5-11.1); NEUT % 76.7 % (42.8-82.8); PLATELET COUNT 279 K/MM3 (134-434); RBC 4.09 M/mm3 (4.00-5.60); RDW 17.6 % (11.9-15.9); WHITE BLOOD COUNT 8.8 K/mm3 (4.0-10.0)
[2019-02-13] MEDS ORDERED: PANTOPRAZOLE SODIUM 80 MG in SODIUM CHLORIDE 100 ML IVPB SCH (12:45)
[2019-02-13 12:56] LABS: INR 1.06 (0.83-1.09); PROTHROMBIN TIME (PATIENT) 12.5 SEC (9.7-13.0)
[2019-02-13 12:58] LABS: ACTIVATED PTT 28.8 SECONDS (25.2-36.5)
--- NOTE | 2019-02-13 13:02 | PDOC ---
History of Present Illness - General Chief Complaint: Vomiting Blood Stated Complaint: GI BLEED Time Seen by Provider: 02/13/19 12:02 History Source: Patient, Old Records, Other ([facility] D/C Summary) Exam Limitations: No Limitations - History of Present Illness Initial Comments: HPI: 68 y/o male presenting to [facility] ER complaining of dark colored emesis and stool since Tuesday. Endorses lightheadedness when changing position. Denies abdominal pain, syncope, fevers, chills, chest pain, back pain, or SOB. Was recently transferred from this facility to [facility] on 21 Jan 2019 for presumed UGIB requiring EGD in setting of extensive cardiac risk factors. Study was performed and revealed a healing Lydia-Cochran tear without evidence of varices in the entire esophagus. Pt was discharged with prescription for Pantoprazole 40mg daily, which the pt was not picked up from the pharmacy. States he has not consumed EtOH since end of December 2018. PCP: Dr. [facility] Hx: Ischemic Cardiomyopathy (EF 15-20%, previous life vest, no AICD), CAD s/p CABG ( 2002), s/p PCI x3 (pLAD, dLAD, mLCx), COPD, Cirrhosis (presumed alcoholic), EtOH abuse disorder, h/o of UGIB presumed 2/2 Lydia Cochran tear Review of Systems: In addition to that documented in the HPI above, the additional ROS was obtained : Constitutional: Denies fevers or chills Head: Denies vision changes ENMT: Denies sore throat CV: Denies chest pain Resp: Denies SOB GI: Per HPI : Denies painful urination MSK: Denies recent trauma Skin: Denies new rashes Neuro: Denies new numbness or tingling or weakness Endocrine: Denies polyuria Heme: Denies bleeding or bruising Physical Examination: Constitutional: Nontoxic adult male in no acute distress or obvious discomfort. Found semi-fowlers on hospital bed. Alert and oriented x4. Answered all questions appropriately and completely. Speech was non-labored, non-pressured. Head: Normocephalic. No obvious external signs of trauma. Eyes: scleral icterus. Conjunctiva pink, moist, and not injected. Ears: Hearing grossly intact. Nose: No nasal discharge. Throat: Oral cavity and pharynx normal. No inflammation, swelling, exudate, or lesions. Moist and pink mucosal membranes. Neck: Supple, trachea is midline. Cardiovascular / Chest: Regular rate and regular rhythm. No murmur, rubs, clicks , or gallops. Peripheral pulses: radial pulses full. No pretibial edema. Respiratory: Breathing unlabored. Equal chest rise and fall. Clear to auscultation bilaterally. No stridor, no wheezing, no rhonchi. Gastrointestinal: abdomen is soft, non-tender, non-distended. No overlying skin lesions or obvious signs of trauma. Neuro: Alert and oriented. Moving all four extremities spontaneously. No focal deficits. Cranial nerves intact. Sensation to all four extremities intact. Upper and lower extremities: proximal and distal strength 5/5. Gas Dispatcher strength 5/ 5 - equal and symmetric. Plantar flexion and dorsiflexion 5/5. Intact rapid alternating movement and heel to hernandez. No asterixis. Skin: Warm, dry, and intact. No bruising, rashes, or other lesions. Psych: Affect: appropriate. Mood: normal. Male Rectal: Good sphincter tone with single nonbleeding, nonerythematous external hemorrhoid at 12 oclock.. Prostate is not tender, enlarged, boggy, or nodular. Stool melanotic without bright red blood on glove. service desk technician chaperoned exam. MDM: *Reviewed vital signs, nursing notes, and prior visit documentation (if available). 68 y/o male with extensive cardiac history and recent UGIB evaluated at [facility] presenting for multiple dark episodes of emesis and stooling over the past several days. Afebrile. Vitals remarkable for hypotension without tachycardia at triage. Repeat BP slightly (MAP >65) improved prior to medical intervention. Physical exam as described above. Suspect likely repeat UGIB secondary to medication non-compliance. CBC unremarkable for anemia. Suspect this will likely trend downward. Pt is on dual antiplatelet therapy. Will hold PRBCs at this time. Ordered IVFB and Pantoprazole bolus and drip. LFTs elevated (not at 2:1 ratio). Pts chart notes h/o of hepatitis, though pt denies known liver disease. LFTs have never been this elevated at this facility. Suspect likely secondary to newly diagnosed liver cirrhosis. Will contact [facility] for transfer for likely UGIB given cardiac risk factors and recent discharge. 13:25 Called placed to [facility] Transfer Center. Awaiting call back. 13:[address] [facility] ED. Case was never discussed with ED attending directly. linderman machine operator relayed report rather than transferring or initiating conference call. Case discussed with medicine consult service, Dr. Faustino Sampson. Expressed belief the pt was not stable for transfer. Requested improved vital signs, repeat CBC, and a lactic acid test. Plan to call back with new results for further discussion about transfer. 17:03 Pts current condition discussed with Dr. Sampson at [facility]. Will accept the pt for further GI evaluation. Transfer center paper and pulp mill operator, Viry, stated she would call back with transfer options when a bed was available. Unable to provide ETA, believed it could range from minutes to days. 17:49 Microblog sent [facility] Admitting. Anticipate likely lengthy wait for bed at [facility]. 21:47 Telephone consult with resident Dr. Schumacher at [facility] who re-accepts the pt as she did not receiving sign out from Dr. Sampson. linderman machine operator, Zeinab, initiated transfer ambulance. ETA 23:00-23:30. Pt signed out to resident Dr. Patel after he was verbally appraised of the pts HPI, current ED course, and plan of management. Will f/u on pending transfer to [facility]. Jesse Schaefer M.D., PGY1 Emergency Medicine Resident Past History - Past Medical History Allergies/Adverse Reactions: Allergies Allergy/AdvReac Type Severity Reaction Status Date / Time No Known Allergies Allergy Verified 02/13/19 11:34 Home Medications: Ambulatory Orders Allopurinol [Zyloprim -] 300 mg PO DAILY 05/20/18 Aspirin [ASA -] 81 mg PO DAILY tab.chew 05/31/18 Clopidogrel Bisulfate [Plavix -] 75 mg PO DAILY tablet 05/31/18 Atorvastatin Ca [Lipitor] 40 mg PO HS 01/15/19 Furosemide [Lasix -] 40 mg PO DAILY 01/15/19 Isosorbide Mononitrate [Isosorbide Mononitrate ER] 30 mg PO DAILY 01/15/19 Lisinopril 5 mg PO DAILY 01/15/19 Metoprolol Tartrate [Lopressor -] 25 mg PO DAILY 01/15/19 Spironolactone 25 mg PO DAILY 01/15/19 COPD: No CHF: Yes GI Disorders: Yes (gi bleed) HTN: Yes Hypercholesterolemia: Yes - Surgical History Cardiac Surgery: Yes (S/P CABG 2002) - Immunization History Immunization Up to Date: No - Suicide/Smoking/Psychosocial Hx Smoking History: Current every day smoker Have you smoked in the past 12 months: Yes Number of Cigarettes Smoked Daily: 1 If you are a former smoker, when did you quit?: daily Cigars Per Day: 1 Information on smoking cessation initiated: No 'Breaking Loose' booklet given: 01/15/19 Hx Alcohol Use: No Drug/Substance Use Hx: No Substance Use Type: None Hx Substance Use Treatment: No *Physical Exam - Vital Signs Last Vital Signs Temp Pulse Resp BP Pulse Ox 97.5 F L 55 L 19 76/41 L 02/13/19 11:29 02/13/19 11:29 02/13/19 11:02/13/19 11:29 Vital Signs - Vital Signs #1 Blood Pressure: 87/63 MAP: 71 BP Location: Right Arm Blood Pressure Position: Sitting Pulse Rate: 88 Respiratory Rate: 16 O2 Sat by Pulse Oximetry (%): 100 Oxygen Delivery Method: Room Air #2 Blood Pressure: 88/61 MAP: 70 BP Location: Right Arm Blood Pressure Position: Sitting Pulse Rate: 92 #3 Blood Pressure: 125/63 MAP: 83 BP Location: Right Arm Blood Pressure Position: Sitting Pulse Rate: 84 Procedures - Additional Procedures Progress: Ultrasound Guided IV Line Placement PROCEDURE NOTE: IV Placement under Ultrasound Guidance PROCEDURE PLANISHING HAMMER OPERATOR: Jesse Schaefer M.D. Resident Indication: IV access required. Multiple attempts at peripheral IV placement were made by the nursing staff without success. Procedure: The area was prepped in the usual fashion. The R basilic vein was cannulated with a 20 gauge angiocath with use of dynamic ultrasound to identify the vein. The patient tolerated the procedure well. Complications: none ED Treatment Course - LABORATORY CBC & Chemistry Diagram: 02/13/19 16:08 02/13/19 12:15 - ADDITIONAL ORDERS Additional order review: Laboratory Results 02/13/19 02/13/19 02/13/19 12:26 12:15 12:15 PT with INR Cancelled 12.50 INR Cancelled 1.06 PTT (Actin FS) 28.8 Stool Occult Blood Positive Crossmatch 02/13/19 12:15 PT with INR INR PTT (Actin FS) Stool Occult Blood Crossmatch See Detail 02/13/19 12:15 RBC 4.09 MCV 87.1 MCHC 31.6 L RDW 17.6 H MPV 9.1 Neutrophils % 76.7 Lymphocytes % 14.6 Monocytes % 8.0 Eosinophils % 0.3 D Basophils % 0.4 - RADIOLOGY Radiology Studies Ordered: Category Date Time Status CHEST X-RAY PORTABLE* [RAD] Stat Radiology 02/13/19 12:08 Ordered *DC/Admit/Observation/Transfer Diagnosis at time of Disposition: Transaminitis Hypotension Qualifiers: Hypotension type: other hypotension type Qualified Code(s): I95.89 - Other hypotension GI bleed Qualifiers: GI bleed type/associated pathology: melena Qualified Code(s): K92.1 - Melena - Discharge Dispostion Disposition: TRANSFER ACUTE CARE/OTHER HOSP Condition at time of disposition: Stable Decision to Admit order: No - Referrals Referrals: Christiano Mcnair MD [Primary Care Provider] - - Patient Instructions - Post Discharge Activity - Transfer to Acute Care Facility Receiving Facility: [facility] Accepting Physician:: Resident Dr. Schumacher / Resident Dr. Sampson
[2019-02-13] MEDS ORDERED: LACTATED RINGERS SOLUTION 1000 ML INFUS.BAG IV ONE ×4 (13:10→18:36)
[2019-02-13 13:13] LABS: ALBUMIN 3.5 g/dl (3.4-5.0); ALK PHOS 344 U/L (45-117); ANION GAP 7 MMOL/L (8-16); BILIRUBIN,TOTAL 1.6 mg/dL (0.2-1); BLOOD UREA NITROGEN 36 mg/dL (7-18); CALCIUM 9.3 mg/dL (8.5-10.1); CHLORIDE 92 mmol/L (98-107); CO2 36 mmol/L (21-32); CREATININE 1.8 mg/dL (0.55-1.3); GLUCOSE,RANDOM 104 mg/dL (74-106); PHOSPHOROUS 3.8 mg/dL (2.5-4.9); POTASSIUM 4.6 mmol/L (3.5-5.1); SGOT/AST 353 U/L (15-37); SGPT/ALT 339 U/L (13-61); SODIUM 135 mmol/L (136-145); TOT PROT 7.3 g/dl (6.4-8.2)
--- NOTE | 2019-02-13 15:40 | EKG ---
Test Reason : Blood Pressure : / mmHG Vent. Rate : 089 BPM Atrial Rate : 089 BPM P-R Int : 152 ms QRS Dur : 090 ms QT Int : 380 ms P-R-T Axes : 000 032 109 degrees QTc Int : 462 ms SINUS RHYTHM WITH FREQUENT PREMATURE VENTRICULAR COMPLEXES AND PREMATURE ATRIAL COMPLEXES POSSIBLE INFERIOR INFARCT , AGE UNDETERMINED ABNORMAL ECG WHEN COMPARED WITH ECG OF 15-JAN-2019 04:43, SIGNIFICANT CHANGES HAVE OCCURRED Confirmed by Tera Ball MD ([id number]) on 02/13/2019 3:39:57 PM Referred By: Confirmed By:Tera Ball MD
[2019-02-13] MEDS ORDERED: LACTATED RINGERS SOLUTION 1,000 ML/1,000 ML INFUS.BAG IV SCH (15:45)
[2019-02-13 16:36] LABS: HEMATOCRIT 33.6 % (35.4-49); HEMOGLOBIN 10.6 GM/dL (11.7-16.9); MCH 27.7 pg (25.7-33.7); MCHC 31.5 g/dl (32.0-35.9); MEAN CELL VOLUME 87.8 fl (80-96); MEAN PLT VOLUME 8.8 fl (7.5-11.1); PLATELET COUNT 222 K/MM3 (134-434); RBC 3.82 M/mm3 (4.00-5.60); RDW 17.9 % (11.9-15.9); WHITE BLOOD COUNT 9.6 K/mm3 (4.0-10.0)
[2019-02-13] MEDS ORDERED: LIDOCAINE 5% TOPICAL PATCH TP ONE (16:49)
[2019-02-13] MEDS ORDERED: LIDOCAINE 5% TOPICAL PATCH ONE (17:33)
[2019-02-13 17:54] VITALS: TEMP 97.7
[2019-02-13] MEDS ORDERED: LIDOCAINE PATCH REMOVAL MC SCH (22:00)
[2019-02-13 23:12] VITALS: BP 107/76; PULSE 96
== END 2019-02-13 23:33 | disposition short-term general hospital (02) ==
LOC: JER 11:21
PROC: 3E0337Z Introduction of Electrolytic and Water Balance Substance into Peripheral Vein, Percutaneous Approach (ICD-10-PCS; principal; 2019-02-13)
PROC: 3E033GC Introduction of Other Therapeutic Substance into Peripheral Vein, Percutaneous Approach (ICD-10-PCS; 2019-02-13)
DX: R74.0 Nonspecific elevation of levels of transaminase and lactic acid dehydrogenase [LDH] (principal); I95.89 Other hypotension; K92.1 Melena
CPT/HCPCS: 36415; 71045-TC-FY; 80053; 80307; 82272; 83605; 83735; 84100; 85025; 85027; 85610; 85730; 86850; 86900; 86901; 93005; 93010; 96374; 99284-25

== ENCOUNTER 2019-04-17 20:15 | Emergency (ER) | payer OTHER ==
--- NOTE | 2019-04-17 20:26 | PDOC ---
Rapid Medical Evaluation Time Seen by Provider: 04/17/19 20:17 Medical Evaluation: Allergies Allergy/AdvReac Type Severity Reaction Status Date / Time No Known Allergies Allergy Verified 02/13/19 11:34 04/17/19 20:17 I have performed a brief in-person evaluation of this patient. The patient presents with a chief complaint of: left sided body numbness- diagnosed with CVA 1 week ago. Pertinent physical exam findings: full sensation noted. [place] negative. I have ordered the following: labs, urine, CTH The patient will proceed to the ED for further evaluation. Discharge Disposition - Diagnosis Left sided numbness - Referrals - Patient Instructions - Post Discharge Activity
[2019-04-17 20:28] VITALS: BMI 21.6
[2019-04-17] MEDS ORDERED: SODIUM CHLORIDE 1,000 ML IV SCH (21:15)
--- NOTE | 2019-04-17 21:26 | PDOC ---
History of Present Illness - General Chief Complaint: CVA/TIA Stated Complaint: LEFT ARM NUMBNESS Time Seen by Provider: 04/17/19 20:17 History Source: Patient, Family Exam Limitations: No Limitations - History of Present Illness Initial Comments: 04/17/19 21:18 68yo man with pmh well controlled HTN, previous CVA (MRI demonstrating ischemic changes), on aspirin and plavix (both taken last night) presenting with acute worsening of his baseline left arm numbness. Sympotoms started at 5PM today in the setting of bumping his shoulder while exiting his car at the store. He describes a cramping sensation in his left shoulder / back that intensified the numbness in his left arm. This numbness is not new but he admits that it worsened. Has had baseline numbness for the past two months. He sat in the store for 7-10 minutes and shortly thereafter his numbness returned to baseline. Underwent recent workup for his 2 months of numbness culminating in an MRI demonstrating "extensive ischemic changes in the allyn, left cerebellar hemisphere and the white matter of both cerebral hemispheres." Pt denies headaches in the past but reports a "mild pressure headache" this evening and another similar headache several days ago that resolved with tylenol. Denies fevers / chills / CP / SOB / dizziness / headache at the current time. Past History - Travel Traveled outside of the country in the last 30 days: No Close contact w/someone who was outside of country & ill: No - Past Medical History Allergies/Adverse Reactions: Allergies Allergy/AdvReac Type Severity Reaction Status Date / Time No Known Allergies Allergy Verified 04/17/19 20:28 Home Medications: Ambulatory Orders Allopurinol [Zyloprim -] 300 mg PO DAILY 05/20/18 Aspirin [ASA -] 81 mg PO DAILY tab.chew 05/31/18 Clopidogrel Bisulfate [Plavix -] 75 mg PO DAILY tablet 05/31/18 Atorvastatin Ca [Lipitor] 40 mg PO HS 01/15/19 Furosemide [Lasix -] 40 mg PO DAILY 01/15/19 Isosorbide Mononitrate [Isosorbide Mononitrate ER] 30 mg PO DAILY 01/15/19 Lisinopril 5 mg PO DAILY 01/15/19 Metoprolol Succinate 12.5 mg PO DAILY 04/17/19 Cardiac Disorders: Yes CVA: Yes COPD: No CHF: Yes GI Disorders: Yes (gi bleed) HTN: Yes Hypercholesterolemia: Yes - Surgical History Cardiac Surgery: Yes (S/P CABG 2002/stent 2018) - Immunization History Immunization Up to Date: No - Suicide/Smoking/Psychosocial Hx Smoking History: Former smoker Have you smoked in the past 12 months: No Number of Cigarettes Smoked Daily: 1 If you are a former smoker, when did you quit?: daily Cigars Per Day: 1 Information on smoking cessation initiated: No 'Breaking Loose' booklet given: 01/15/19 Hx Alcohol Use: No Drug/Substance Use Hx: No Substance Use Type: None Hx Substance Use Treatment: No Neuro Specific PMHX - Complaint Specific PMHX Glaucoma: No Herniated Disk: No Laminectomy: No Migraine: No Multiple Sclerosis: No Neuropathy: No TIA: Yes (workup over 2 months) Review of Systems - Review of Systems Able to Perform ROS?: Yes Is the patient limited Bur[place]ian proficient: No Constitutional: Yes: See HPI. No: Symptoms Reported, Chills, Fever HEENTM: No: Symptoms Reported Respiratory: No: Symptoms reported, Cough, Shortness of Breath Cardiac (ROS): No: Symptoms Reported, Chest Pain, Palpitations, Syncope, Chest Tightness ABD/GI: No: Symptoms Reported : No: Symptoms Reported Musculoskeletal: No: Symptoms Reported Integumentary: No: Symptoms Reported Neurological: Yes: Headache (minor headaches resolving with tylenol over past 2 days), Numbness (baseline for 2 months, MRI evidence of stroke). No: Symptoms reported Hematologic/Lymphatic: No: Anemia, Blood Clots, Easy Bruising All Other Systems: Reviewed and Negative *Physical Exam - Vital Signs Last Vital Signs Temp Pulse Resp BP Pulse Ox 98.4 F 89 18 106/64 100 04/17/19 20:22 04/17/19 20:22 04/17/19 20:22 04/17/19 20:22 04/17/19 20:22 - Physical Exam Comments: 04/17/19 22:05 Vitals: AFVSS Gen: Thin man, sitting on bed, cooperative, eager to leave CV: RRR, nl s1/s2, no murmurs appreciated Pulm: CTABL, normal WOB, no wheezes / rales / rhonchi Abd: soft, nontender, nondistended Ext: WWP, no clubbing cyanosis or edema Neuro: Cranial nerves 2-12 intact, sensation symmetric in upper and lower extremities (including reportedly in the region of numbness on left hand), strength 5+ UE sterile instrument technician, biceps, triceps, hip flexors, foot dorsiflexion and plantar flexion, no pronator drift, normal [id number] test, normal rapid alternating movements Pulses: 2+ radial and PT NIH Stroke Scale - Last Known Well Date/Time & Onset Date Last Known Well: 04/17/19 Time Last Known Well: 17:00 - Initial Evaluation Level of consciousness: Alert Ask patient the month and their age: Answers both correctly Ask patient to open & close eyes; make fist and let go: Obeys both correctly Best gaze (horizontal eye movement): Normal Visual field testing: No visual field loss Facial paresis (Show teeth/raise eyebrows/close eyes tight): Minor paralysis ( flattened nasolabial fold, asymmetry on smiling) (Family reports this is baseline facial symmetry) Motor Function: Left Arm: Normal Motor Function: Right Arm: Normal (extends arm 90 (or 45) degrees for 10 seconds without drift Motor Function: Left Leg: Normal (extends leg 30 degrees for 5 seconds without drift) Motor Function: Right Leg: Normal (extends leg 30 degrees for 5 seconds without drift) Limb Ataxia: No ataxia Sensory(Use pinprick test arms,legs,trunk,face/side to side): Normal Best language (Describe picture, name items, read sentences): No Aphasia Dysarthria (read several words): Normal articulation Extinction and Inattention: No abnormality - Total Score NIH Stroke Scale Score: 1 tPA Exclusion checklist 3-4.5h - Time Elapsed Date last known well: 04/17/19 Time last known well: 17:00 Elaspsed time: Day(s) and 5 Hour(s) and 38 Minutes - Thrombolytic Therapy Candidate Is patient eligible for thrombolytic therapy: No - Exclusion Criteria 3-4.5 hr SBP greater than 185 or DBP greater than 110mmHg despite tx: No Recent IC/spinal surgery,head trauma or stroke<3mos.: Yes Hx IC hemorrhage, IC neoplasm, AV malformation or aneurysm: No Active internal bleeding: No Blding diathesis(low plt ct, inc PTT,INR>1.7 or use of NOAC): No Symptoms suggest subarachnoid hemorrhage: No CT demonstrates multilobar infarct(>1/3 cerebral hemiphere): No Arterial puncture at noncompressible site in previous 7 days: No Blood glucose concentration less than 50mg/dL (2.7mmol/L): No - Relative Exclusion Criteria 3-4.5 hr Life expectancy <1 yr or severe co-morbid illness: No : No Patient/family refused: No Rapid improvement: Yes Stroke severity too mild: No Recent acute AL (w/in previous 3 months): No Seizure at onset with postictal residual neuro impairments: No Major surgery or serious trauma w/in previous 14 days: No Recent GI or hemorrhage (w/in previous 21 days): No - Add'l Relative Exclusion 3-4.5 hr Age > 80: No Hx of both diabetes AND prior ischemic stroke: No Taking an oral anticoagulant regardless of INR: No NIHSS >25: No - Ineligibility reason(s) Reasons No tPA given: See reason(s) noted above (recent stroke <3mo, rapid resolution ) TIA Risk Factors - ABCD Score Age: Age < 60 Blood Pressure: SBP < 140 and DBP < 90 Duration: TIA duration 10-59 min Diabetes: No Critical Care Time/MDM Note - Medical Decision Making Note: 04/17/19 21:59 68yo man with pmh well controlled HTN, previous CVA (MRI demonstrating ischemic changes), on aspirin and plavix (both taken last night) presenting with acute worsening of his baseline left arm numbness. NCHCT without acute hemorrhage. NIHSS 1 at 20:45 for flattening of the left nasolabial fold - baseline per family at bedside. Repeat at 21:20 still NIHSS 1. tPA contraindicated in pt with stroke within the past 3 months and rapidly resolving symptoms. DDX TIA vs Stroke vs ulnar nerve compression. -CBC, CMP, Cardiac, Lipids, T&S, Coags -EKG -IVF -CXR -NCHCT -CTA head and neck, pending Cr vs MRI -Aspirin / Statin held, pt took home dose ASA / Plavix yesterday evening 04/17/19 21:56 -INR 1.05 -CBC, CMP unremarkable -NCHCT without hemorrhage -EKG: rate 84 bpm, TX 176, QRS 88, and Twave changed similar to EKG 02/1304/17/19 22:00 -Awaiting discussion with neurology before endorsement to floor team -Bed available 04/17/19 22:17 -Cr 1.6, IVF and wait for normalization before CTA vs MRI 04/17/19 22:23 -Second call placed to neurology -Pt MBMD placed 04/17/19 22:38 -Pt signed out to Dr. Patel *DC/Admit/Observation/Transfer Diagnosis at time of Disposition: Left sided numbness - Discharge Dispostion Condition at time of disposition: Guarded - Referrals Referrals: Christiano Mcnair MD [Primary Care Provider] - - Patient Instructions - Post Discharge Activity
[2019-04-17 21:34] LABS: BASO % 0.2 % (0-2.0); EOS % 0.4 % (0-4.5); HEMATOCRIT 31.7 % (35.4-49); HEMOGLOBIN 10.3 GM/dL (11.7-16.9); LYMPH % 18.4 % (8-40); MCHC 32.3 g/dl (32.0-35.9); MEAN CELL VOLUME 80.3 fl (80-96); MEAN PLT VOLUME 8.7 fl (7.5-11.1); MONO % 7.7 % (3.8-10.2); NEUT % 73.3 % (42.8-82.8); PLATELET COUNT 257 K/MM3 (134-434); RBC 3.95 M/mm3 (4.00-5.60); RDW 18.1 % (11.9-15.9); WHITE BLOOD COUNT 8.2 K/mm3 (4.0-10.0)
[2019-04-17 21:49] LABS: INR 1.05 (0.83-1.09); PROTHROMBIN TIME (PATIENT) 12.4 SEC (9.7-13.0)
[2019-04-17 21:57] LABS: ALBUMIN 3.9 g/dl (3.4-5.0); BILIRUBIN,TOTAL 0.4 mg/dL (0.2-1); BLOOD UREA NITROGEN 27.5 mg/dL (7-18); CREATININE 1.6 mg/dL (0.55-1.3); POTASSIUM 4.1 mmol/L (3.5-5.1); TOT PROT 7.4 g/dl (6.4-8.2)
--- NOTE | 2019-04-17 22:34 | PDOC ---
Documentation entered by Yas Stearns SCRIBE, acting as scribe for Phyllis Kelley DO. Phyllis Kelley DO: This documentation has been prepared by the Daryn gamboa Adrianna, SCRIBE, under my direction and personally reviewed by me in its entirety. I confirm that the documentation accurately reflects all work, treatment, procedures, and medical decision making performed by me. Attending Attestation - Resident Resident Name: Dave Perez - ED Attending Attestation I have performed the following: I have examined & evaluated the patient, The case was reviewed & discussed with the resident, I agree w/resident's findings & plan - HPI HPI: The patient is a 68 year old male, with a significant PMH of prior CVA, Ischemic Cardiomyopathy (EF 15-20%, previous life vest, no AICD), CAD (s/p CABG 2002), s/p PCI x3 (pLAD, dLAD, mLCx), COPD, HTN, Cirrhosis (presumed alcoholic) , EtOH abuse disorder, h/o of UGIB presumed 2/2 Lydia Cochran tear, who presents to the ED for evaluation of left arm numbness that began 3 hours prior to arrival. Patient notes his symptoms began subsequently after bumping his left shoulder while getting out of the car. He notes he began experiencing left shoulder and left upper back cramping, which transitioned into progressively worsening LUE numbness. Patient endorses some numbness of the LUE at baseline for the past 2 months, but notes this feels significantly worse. Denies any other complaints while in the ED. Allergies: NKA, NKDA Surgical History: Stents, CABG Social History: EtOH abuse PCP: Dr. Dang - Physicial Exam PE: GENERAL: Awake, in no acute distress HEAD: No signs of trauma EYES: ENT:clear without exudates. Moist mucosa NECK: Normal ROM, LUNGS:. Normal work of breathing. HEART: Regular rate and rhythm, ABDOMEN: Soft, nondistended CHEST WALL: BACK: No midline tenderness. EXTREMITIES:. No erythema, or tenderness NEUROLOGICAL: see resident exam SKIN: Warm, Dry 04/17/19 22:32 - Medical Decision Making 04/17/19 22:33 68-year-old male with an episode of left upper extremity tingling, increased from baseline after banging his shoulder Patient states he is currently at his baseline and reevaluation at 10:[address] scan of the brain shows no acute abnormality/no hemorrhage Due to patient's extensive past medical history including recent stroke and ultimately areas of ischemia on recent MRI he will be admitted to medical service for further evaluation EKG shows no significant acute changes Troponin is within normal limits
[2019-04-17 23:09] VITALS: TEMP 98
--- NOTE | 2019-04-17 23:20 | PDOC ---
*Physical Exam - Vital Signs Last Vital Signs Temp Pulse Resp BP Pulse Ox 98.0 F 70 20 111/64 100 04/17/19 23:00 04/17/19 23:00 04/17/19 22:30 04/17/19 23:00 04/17/19 23:00 ED Treatment Course - LABORATORY CBC & Chemistry Diagram: 04/17/19 20:50 04/17/19 20:50 - ADDITIONAL ORDERS Additional order review: Laboratory Results 04/17/19 04/17/19 04/17/19 20:50 20:50 20:50 PT with INR 12.40 INR 1.05 Sodium 135 L Potassium 4.1 Chloride 102 Carbon Dioxide 25 Anion Gap 8 BUN 27.5 H Creatinine 1.6 H Est GFR (CKD-EPI)AfAm 50.20 Est GFR (CKD-EPI)NonAf 43.31 Random Glucose 113 H Calcium 9.0 Total Bilirubin 0.4 AST 20 ALT 20 Alkaline Phosphatase 86 Creatine Kinase 619 H Creatine Kinase Index 0.3 CK-MB (CK-2) 2.3 Troponin I 0.03 Total Protein 7.4 Albumin 3.9 Triglycerides 310 H Cholesterol 238 H Total LDL Cholesterol 144 H HDL Cholesterol 62 H 04/17/19 20:50 RBC 3.95 L MCV 80.3 D MCHC 32.3 RDW 18.1 H MPV 8.7 Neutrophils % 73.3 Lymphocytes % 18.4 D Monocytes % 7.7 Eosinophils % 0.4 Basophils % 0.2 - RADIOLOGY Radiology Studies Ordered: Category Date Time Status BRAIN CTA (STROKE) [CT] Stat CT Scan 04/17/19 21:[address] (STROKE) [CT] Stat CT Scan 04/17/19 20:50 Completed NECK CTA [CT] Stat CT Scan 04/17/19 21:00 Ordered Medical Decision Making - Medical Decision Making 68 year old male with PMH of cerebrovascular disease presenting with left arm numbness and tingling since hitting his left arm on the chair at 17:00. symptoms resolved by presentation and patient was at baseline. NIHSS 1 on presentation (nasiolabal flattening at his baseline) but patient feeling well. CT head negative and labs only demonstrating small elevation in creatinine 1.6 but lower than previous one. Spoke to Dr. Lance and he is comfortable with calling the patient tomorrow morning and following up with him in office. 04/17/19 23:11 *DC/Admit/Observation/Transfer Diagnosis at time of Disposition: Left sided numbness - Discharge Dispostion Disposition: HOME Condition at time of disposition: Improved Decision to Admit order: No - Referrals Referrals: Christiano Mcnair MD [Primary Care Provider] - Geovanny Lance MD [Staff Physician] - - Patient Instructions Printed Discharge Instructions: DI for Transient Ischemic Attack Additional Instructions: Your CT head did not show any evidence of any stroke. You likely need an MRI. We spoke to Dr. Lance and he will call your tomorrow to schedule an MRI and change your medications as needed. Please return to the ED if you have any new or worsening symptoms. - Post Discharge Activity
--- NOTE | 2019-04-17 23:40 | CONSULT ---
Consultation: REQUESTING PROVIDER: CONSULT REQUEST: We have been asked to medically evaluate this patient for left arm numbness and tingling. HISTORY OF PRESENT ILLNESS: Patient is a 68 y/o male with a history of HTN, HLD, CAD s/p CABG, CHF, and COPD who presents for left numbness and tingling. Patient has had these symptoms for months. Patient was getting out of his car when he hit his left shoulder and felt the numbness and tingling was worse. patient follows with Dr. Lance as an outpatient. Patient has no other nuero deficits and has no acute complaints. REVIEW OF SYSTEMS: numbness and tingling of left arm PHYSICAL EXAMINATION Vital Signs - 24 hr 04/17/19 04/17/19 04/17/19 20:22 21:56 22:30 Temperature 98.4 F Pulse Rate 89 72 Pulse Rate [ 72 Left Radial] Respiratory 18 20 Rate Blood Pressure 106/64 Blood Pressure 98/69 [Right Arm] O2 Sat by Pulse 100 99 100 Oximetry (%) 04/17/19 23:00 Temperature 98.0 F Pulse Rate Pulse Rate [ 70 Left Radial] Respiratory Rate Blood Pressure Blood Pressure 111/64 [Right Arm] O2 Sat by Pulse 100 Oximetry (%) GENERAL: Awake, alert, and fully oriented, in no acute distress. Neuor: numbness and tingling on left arm, sensation intact, ROM intact, no pain to palpation of left shoulder Laboratory Results - last 24 hr CBC, BMP 04/17/19 20:50 04/17/19 20:50 Active Medications Generic Name Dose Route Start Last Admin Trade Name Freq PRN Reason Stop Dose Admin Sodium Chloride 1,000 mls @ 42 mls/hr 04/17/19 21:15 04/17/19 21:35 Normal Saline - IV 42 mls/hr ASDIR [facility] Administration ASSESSMENT/PLAN: Patient is a 68 y/o male with a history of HTN, HLD, CAD s/p CABG, CHF, and COPD who presented to the ED with left arm numbness. Left arm numbness - upon discussion with patient this numbness has been chronic for the last few months - ED called Dr. Lance and patient will follow up with him as an outpatient to have the numbness evaluated - Head CT: no acute abnormalities - will continue all home meds for other chronic medical problems Dispo: Patient to follow up with Dr. Lance as an outpatient. Visit type - Emergency Visit Emergency Visit: No - New Patient This patient is new to me today: Yes Date on this admission: 04/18/19 - Critical Care Critical Care patient: No ATTENDING PHYSICIAN STATEMENT I saw and evaluated the patient. I reviewed the resident's note and discussed the case with the resident. I agree with the resident's findings and plan as documented. SUBJECTIVE: OBJECTIVE: ASSESSMENT AND PLAN:
[2019-04-17 23:44] VITALS: BP 106/69; PULSE 76
[2019-04-17 23:44] LABS: PH,URINE 6.5 (5.0-8.0); URINE APPEARANCE CLEAR; URINE BILIRUBIN NEGATIVE (NEGATIVE); URINE COLOR YELLOW; URINE GLUCOSE (UA) NEGATIVE (NEGATIVE); URINE KETONE NEGATIVE (NEGATIVE); URINE LEUK ESTERASE NEGATIVE (NEGATIVE); URINE NITRITE NEGATIVE (NEGATIVE); URINE PROTEIN NEGATIVE (NEGATIVE)
--- NOTE | 2019-04-17 23:58 | PN ---
Teaching Attending Note Name of Resident: Sparkle Nguyễn ATTENDING PHYSICIAN STATEMENT I saw and evaluated the patient. I reviewed the resident's note and discussed the case with the resident. I agree with the resident's findings and plan as documented. Seen and examined; please refer to resident note for further historical information. Briefly, this is a 68 y/o male with a PMH as stated presents with 3 months waxing and waning LUE numbness that flared up after he hit his shoulder. Atraumatic exam, no change in numbness from baseline. ER spoke with who states may followup as OP Agree with resident exam, history, and assessment. Recommended calling Dr. Lance to discuss case. He agrees with DC home and will see him tomorrow in clinic. ER will DC.
--- NOTE | 2019-04-18 14:29 | EKG ---
Test Reason : Blood Pressure : / mmHG Vent. Rate : 084 BPM Atrial Rate : 084 BPM P-R Int : 176 ms QRS Dur : 088 ms QT Int : 380 ms P-R-T Axes : 086 -18 101 degrees QTc Int : 449 ms NORMAL SINUS RHYTHM CANNOT RULE OUT ANTERIOR INFARCT , AGE UNDETERMINED T WAVE ABNORMALITY, CONSIDER LATERAL ISCHEMIA ABNORMAL ECG WHEN COMPARED WITH ECG OF 13-FEB-2019 12:17, PREMATURE VENTRICULAR COMPLEXES ARE NO LONGER PRESENT PREMATURE ATRIAL COMPLEXES ARE NO LONGER PRESENT NONSPECIFIC T WAVE ABNORMALITY NO LONGER EVIDENT IN INFERIOR LEADS T WAVE INVERSION LESS EVIDENT IN ANTERIOR LEADS Confirmed by RUPERT LOPES, RASHAD ([id number]) on 04/18/2019 2:29:06 PM Referred By: Confirmed By:RASHAD EMERY MD
== END 2019-04-18 00:02 | disposition home or self-care (01) ==
LOC: JER 20:15
PROC: 3E0337Z Introduction of Electrolytic and Water Balance Substance into Peripheral Vein, Percutaneous Approach (ICD-10-PCS; principal; 2019-04-17)
DX: R20.0 Anesthesia of skin (principal); I25.10 Atherosclerotic heart disease of native coronary artery without angina pectoris; I11.0 Hypertensive heart disease with heart failure; Z95.1 Presence of aortocoronary bypass graft; Z95.5 Presence of coronary angioplasty implant and graft; I25.5 Ischemic cardiomyopathy; J44.9 Chronic obstructive pulmonary disease, unspecified; F10.10 Alcohol abuse, uncomplicated; K74.60 Unspecified cirrhosis of liver; Z86.73 Personal history of transient ischemic attack (TIA), and cerebral infarction without residual deficits; Z79.01 Long term (current) use of anticoagulants; Z79.82 Long term (current) use of aspirin
CPT/HCPCS: 36415; 70450-TC; 71045-TC-FY; 80053; 80061; 81003; 82550; 82553; 83721; 84484; 85025; 85610; 93005; 93010; 99285-25; J7030

== ENCOUNTER 2019-09-17 14:33 | Inpatient (IN) | payer OTHER ==
[2019-09-17] MEDS ORDERED: SODIUM CHLORIDE 1,000 ML IV STA (14:39)
--- NOTE | 2019-09-17 14:39 | PDOC ---
Rapid Medical Evaluation Time Seen by Provider: 09/17/19 14:35 Medical Evaluation: Allergies Allergy/AdvReac Type Severity Reaction Status Date / Time No Known Allergies Allergy Verified 04/17/19 20:28 09/17/19 14:36 CC: dark stool, LUQ pain, vomiting x2 days PE: LUQ tenderness. no guarding Orders: labs, T&S, guiac Patient will proceed to ED for further evaluation. Discharge Disposition - Diagnosis Abdominal pain - Referrals - Patient Instructions - Post Discharge Activity
[2019-09-17] MEDS ORDERED: ONDANSETRON 4 MG/2 ML VIAL IVPUSH ONE (15:46)
[2019-09-17] MEDS ORDERED: morphine SULFATE 4 MG/ML VIAL IVPUSH ONE (15:46)
[2019-09-17] MEDS ORDERED: morphine SULFATE 4 MG/ML VIAL ONE (16:07)
[2019-09-17] MEDS ORDERED: ONDANSETRON 4 MG/2 ML VIAL ONE (16:07)
[2019-09-17 16:09] LABS: BASO % 0.7 % (0-2.0); HEMATOCRIT 40.4 % (35.4-49); HEMOGLOBIN 13.4 GM/dL (11.7-16.9); LYMPH % 18.3 % (8-40); MCH 30.7 pg (25.7-33.7); MCHC 33.1 g/dl (32.0-35.9); MEAN CELL VOLUME 92.9 fl (80-96); MONO % 7.3 % (3.8-10.2); NEUT % 73.7 % (42.8-82.8); RBC 4.35 M/mm3 (4.00-5.60); RDW 17.4 % (11.9-15.9); WHITE BLOOD COUNT 9.5 K/mm3 (4.0-10.0)
--- NOTE | 2019-09-17 16:19 | PDOC ---
*Physical Exam - Vital Signs Last Vital Signs Temp Pulse Resp BP Pulse Ox 97.8 F 50 L 18 116/72 98 09/17/19 14:35 09/17/19 14:35 09/17/19 14:35 09/17/19 14:35 09/17/19 14:35 - Physical Exam 09/17/19 16:16 Blood pressure within normal limits, heart rate also normal Alert lying in stretcher, conversant in no acute distress No jaundice or pallor, positive dry mucosa Heart is regular, lungs are clear Abdomen is soft/nondistended. Tender with some guarding in the epigastric region, no rebound. Guaiac as noted in PA note Heart Score/ECG Review #1 ECG reviewed & interpreted by me at: 16:27 General ECG Interpretation: Sinus Rhythm (PVCs noted), Normal Rate (102), Normal Intervals (qtc 471), No acute ischemic changes (lateral TWI) ED Treatment Course - LABORATORY CBC & Chemistry Diagram: 09/21/19 05:55 09/21/19 05:55 Medical Decision Making - Medical Decision Making 09/17/19 16:16 Patient seen and evaluated with the nurse practitioner. I agree with the overall evaluation, assessment, and management with the following summary of visit: 69-year-old male with history of cardiomyopathy, CAD status post stents, alcoholism, PUD/esophagitis with upper GI bleed requiring transfusion in the past, last endoscopy in January 2019 at [facility] noting esophagitis, started on pantoprazole at that time with plans to repeat endoscopy in 2 months but patient never followed up, presents now with 3 to 4 days of worsening abdominal complaints initially with, black/green diarrhea followed by diffuse abdominal pain and vomiting. Presentation reportedly similar to past PUD flare , last alcohol intake was yesterday, of note ran out of his PPI on 09/07 . Labs including type and screen and coags, urinalysis EKG, chest x-ray CT of the abdomen and pelvis Will likely need admission for trending of exam and CBC given history of GI bleed on blood thinners Discharge - Discharge Information Problems reviewed: Yes Clinical Impression/Diagnosis: Upper GI bleed Abdominal pain Qualifiers: Abdominal location: epigastric Qualified Code(s): R10.13 - Epigastric pain Condition: Good Disposition: HOME - Follow up/Referral - Patient Discharge Instructions - Post Discharge Activity
[2019-09-17] MEDS ORDERED: PANTOPRAZOLE SODIUM 40 MG VIAL IVPUSH ONE (16:23)
[2019-09-17 16:24] LABS: INR 1.02 (0.83-1.09)
[2019-09-17 16:27] LABS: ACTIVATED PTT 29.5 SECONDS (25.2-36.5)
--- NOTE | 2019-09-17 16:30 | PDOC ---
History of Present Illness - General Chief Complaint: Pain Stated Complaint: BLEEDING ULCER Time Seen by Provider: 09/17/19 14:35 History Source: Patient, Spouse Exam Limitations: No Limitations - History of Present Illness Initial Comments: 09/17/19 16:25 Pt is a 69 y/o male with history of CAD, cardiac stents, cardiomyopathy, PUD with GI bleed, alcoholism who presents to the ED with complaint of dark stools and abdominal pain for the last 3 days. He states that he was last seen in January 2019 for similar symptoms and was found to have an ulcer. The patient states that 3 days ago he had a BM that was dark in color. He drinks about 1/2 pint of gin daily and has not had any alcohol since yesterday. He does not feel tremulous at all. His told Dr. Almanzar that he last had an EGD at [facility] in January 2019 which showed esophagitis but there was also food in the stomach. The patient was supposed to have a repeat EGD but he did not follow up. He ran out of his pantoprazole about 10 days ago and he continues to drink alcohol. He denies any fevers or chills. He does have a cardiac history and history of stents. The patient was supposed to see HOMA Merino, tomorrow for an initial evaluation. 09/17/19 17:16 Past History - Past Medical History Allergies/Adverse Reactions: Allergies Allergy/AdvReac Type Severity Reaction Status Date / Time No Known Allergies Allergy Verified 09/17/19 14:38 Home Medications: Ambulatory Orders Allopurinol [Zyloprim -] 300 mg PO DAILY 05/20/18 Aspirin [ASA -] 81 mg PO DAILY tab.chew 05/31/18 Clopidogrel Bisulfate [Plavix -] 75 mg PO DAILY tablet 05/31/18 Atorvastatin Ca [Lipitor] 40 mg PO HS 01/15/19 Furosemide [Lasix -] 40 mg PO DAILY 01/15/19 Lisinopril 5 mg PO DAILY 01/15/19 Metoprolol Succinate 12.5 mg PO DAILY 04/17/19 Nitroglycerin 0.4 mg SL PRN 09/17/19 Cardiac Disorders: Yes CVA: Yes COPD: No CHF: Yes GI Disorders: Yes (gi bleed) HTN: Yes Hypercholesterolemia: Yes - Surgical History Cardiac Surgery: Yes (S/P CABG 2002/stent 2018) - Immunization History Immunization Up to Date: No - Psycho Social/Smoking Cessation Hx Smoking History: Current every day smoker Have you smoked in the past 12 months: No Number of Cigarettes Smoked Daily: 5 If you are a former smoker, when did you quit?: daily Cigars Per Day: 1 Information on smoking cessation initiated: No 'Breaking Loose' booklet given: 01/15/19 Hx Alcohol Use: No Drug/Substance Use Hx: No Substance Use Type: None Hx Substance Use Treatment: No Review of Systems - Review of Systems Able to Perform ROS?: Yes Constitutional: No: Chills, Fever, Malaise, Weakness HEENTM: No: Nose Bleeding, Throat Pain Respiratory: No: Cough, Shortness of Breath, Wheezing, Productive cough Cardiac (ROS): No: Chest Pain, Edema, Palpitations ABD/GI: Yes: Tarry Stools, Other (epigastric/RUQ abd pain, dark stools) : No: Hematuria, Pain Musculoskeletal: No: Muscle Pain Neurological: No: Headache, Numbness, Tingling, Weakness Hematologic/Lymphatic: Yes: Other (liver disease) *Physical Exam - Vital Signs Last Vital Signs Temp Pulse Resp BP Pulse Ox 97.8 F 50 L 18 116/72 98 09/17/19 14:35 09/17/19 14:35 09/17/19 14:35 09/17/19 14:35 09/17/19 14:35 - Physical Exam General Appearance: Yes: Appropriately Dressed, Moderate Distress. No: Intoxicated HEENT: positive: EOMI Neck: negative: Decreased range of motion Respiratory/Chest: positive: Lungs Clear, Normal Breath Sounds. negative: Respiratory Distress, Labored Respiration Cardiovascular: positive: Regular Rhythm, Bradycardia (@50 bpm) Gastrointestinal/Abdominal: positive: Normal Bowel Sounds, Tender (vomiting brown vomitus, no coffee ground emesis), Soft, Hepatomegaly (palpable liver with epigastric/RUQ abd pain). negative: Rebound Musculoskeletal: positive: Normal Inspection. negative: CVA Tenderness, CVA Tenderness (R), CVA Tenderness (L), Decreased Range of Motion Extremity: positive: Normal Inspection Neurologic: positive: Fully Oriented, Alert, Normal Mood/Affect Heart Score/ECG Review - ECG Intrepretation Rhythm: PVC(s) Comment:: 09/17/19 17:32 sinus tachycardia @102 bpm, nonspecific T wave inversions ED Treatment Course - LABORATORY CBC & Chemistry Diagram: 09/17/19 15:38 09/17/19 15:38 - ADDITIONAL ORDERS Additional order review: Laboratory Results 09/17/19 09/17/19 15:38 15:38 PT with INR 12.00 INR 1.02 Blood Type Cancelled Antibody Screen Cancelled - RADIOLOGY Radiology Studies Ordered: Category Date Time Status ABDOMEN & PELVIS CT WITH CONTR [CT] Stat CT Scan 09/17/19 16:23 Ordered - Medications Given in the ED: ED Medications Discontinued Medications Generic Name Dose Route Start Last Admin Trade Name Freq PRN Reason Stop Dose Admin Sodium Chloride 1,000 mls @ 1,000 mls/hr 09/17/19 14:39 09/17/19 16:16 Normal Saline - IV 09/17/19 15:38 1,000 mls/hr ASDIR STA Administration Morphine Sulfate 4 mg 09/17/19 15:46 09/17/19 16:16 Morphine Sulfate IVPUSH 09/17/19 15:47 4 mg ONCE ONE Administration Ondansetron HCl 4 mg 09/17/19 15:46 09/17/19 16:16 Zofran Injection IVPUSH 09/17/19 15:47 4 mg ONCE ONE Administration Medical Decision Making - Medical Decision Making 09/17/19 17:33 Pt is a 69 y/o male with abdominal pain and guaiac + stool and history of GI bleeds in the past. The patient had an appointment scheduled with Dr. Quiroz, of GI, for tomorrow. He has not been taking his pantoprazole for the last 10 days since running out of medication. He continues to drink 1/2 pint of gin dailly, last drink yesterday. He had a slightly elevated postassium which may be secondary to hemolysis. We will admit the patient for further evaluation of GI bleed, nausea, vomiting. Consult to Dr. Quiroz, GI, ordered. 09/17/19 18:06 Endorsed the patient to Dr. Arreaga who accepts the patient to his service. The patient to be admitted for further evaluation and treatment. The patient's repeat potassium and CT scan are pending and will be followed by Dr. Arreaga. The patient is stable for admission. Discharge - Discharge Information Problems reviewed: Yes Clinical Impression/Diagnosis: Upper GI bleed Abdominal pain Qualifiers: Abdominal location: epigastric Qualified Code(s): R10.13 - Epigastric pain Condition: Fair - Admission Yes - Follow up/Referral Referrals: Roge Cutler [Primary Care Provider] - - Patient Discharge Instructions - Post Discharge Activity
[2019-09-17 16:38] LABS: ALBUMIN 4.3 g/dl (3.4-5.0); BLOOD UREA NITROGEN 50.8 mg/dL (7-18); CALCIUM 9.4 mg/dL (8.5-10.1); CREATININE 1.8 mg/dL (0.55-1.3); POTASSIUM 5.9 mmol/L (3.5-5.1); TOT PROT 8.1 g/dl (6.4-8.2)
[2019-09-17] MEDS ORDERED: PANTOPRAZOLE SODIUM 40 MG/100 ML BAG IVPB ONE ×3 (17:05→22:21)
[2019-09-17] MEDS ORDERED: THIAMINE HCL 100 MG TABLET (FP) PO ONE (18:02)
[2019-09-17] MEDS ORDERED: FOLIC ACID 1 MG TABLET (FP) PO ONE (18:02)
[2019-09-17] MEDS ORDERED: MULTIVITAMINS (DAILY MVI) TABLET (FP) PO ONE (18:02)
[2019-09-17 18:33] LABS: PLATELET COUNT 168 K/MM3 (134-434); PLATELET ESTIMATE ADEQUATE
[2019-09-17] MEDS ORDERED: THIAMINE HCL 100 MG TABLET (FP) ONE (18:42)
[2019-09-17] MEDS ORDERED: FOLIC ACID 1 MG TABLET (FP) ONE (18:42)
[2019-09-17] MEDS ORDERED: SODIUM CHLORIDE 0.9% 500 ML INFUS.BAG IV ONE (19:19)
[2019-09-17 19:31] LABS: EPI CELLS 0.3 /HPF (0-5/HPF); HYALINE CASTS 0 /lpf (0-8); PH,URINE >= 9.0 (5.0-8.0); URINE APPEARANCE CLEAR; URINE BACTERIA 0.5 /hpf (NEGATIVE); URINE BILIRUBIN NEGATIVE (NEGATIVE); URINE COLOR YELLOW; URINE GLUCOSE (UA) NEGATIVE (NEGATIVE); URINE KETONE TRACE (NEGATIVE); URINE LEUK ESTERASE NEGATIVE (NEGATIVE); URINE NITRITE NEGATIVE (NEGATIVE); URINE PROTEIN 1+ (NEGATIVE); URINE RBC 0 /hpf (0-4); URINE WBC 0 /hpf (0-5)
--- NOTE | 2019-09-17 19:54 | HP ---
68 M h/o HFrEF 15%, CAD s/p CABG and stent placement in 2019, Etoh dependence, COPD, HTN, HLD, presents with episode of dark stool and dark vomitus. Patient endorses running out of PPI x10 days, and 2-3 days ago he noticed dark stool, and had 1-2 episodes of vomiting dark contents. Patient endorses still drinking daily about 1/2 pint/day. Denies CP/SOB/LOC/dizziness but did have abdominal pain when he came into ED which resolved after receiving morphine. Patient currently feels comfortable, asking for something to eat, denies any complaints , VSS. Recent Travel: denies PAST MEDICAL HISTORY: see above PAST SURGICAL HISTORY: CABG 2002, stent placement 2018 Social History: Smoking: past smoker Alcohol:1/2 pint daily of gin Drugs: denies hard drugs Allergies No Known Allergies Allergy (Verified 09/17/19 14:38) HOME MEDICATIONS: Home Medications Medication Instructions Recorded Allopurinol [Zyloprim -] 300 mg PO DAILY 05/20/18 Aspirin [ASA -] 81 mg PO DAILY tab.chew 05/31/18 Clopidogrel Bisulfate [Plavix -] 75 mg PO DAILY tablet 05/31/18 Atorvastatin Ca [Lipitor] 40 mg PO HS 01/15/19 Furosemide [Lasix -] 40 mg PO DAILY 01/15/19 Lisinopril 5 mg PO DAILY 01/15/19 Metoprolol Succinate 12.5 mg PO DAILY 04/17/19 Nitroglycerin 0.4 mg SL PRN 09/17/19 REVIEW OF SYSTEMS CONSTITUTIONAL: Absent: fever, chills, diaphoresis, generalized weakness, malaise, loss of appetite, weight change HEENT: Absent: rhinorrhea, nasal congestion, throat pain, throat swelling, difficulty swallowing, mouth swelling, ear pain, eye pain, visual changes CARDIOVASCULAR: Absent: chest pain, syncope, palpitations, irregular heart rate, lightheadedness , peripheral edema RESPIRATORY: Absent: cough, shortness of breath, dyspnea with exertion, orthopnea, wheezing, stridor, hemoptysis GASTROINTESTINAL: abdominal pain, reported hematochezia, reported dark coffee ground emesis GENITOURINARY: Absent: dysuria, frequency, urgency, hesitancy, hematuria, flank pain, genital pain MUSCULOSKELETAL: Absent: myalgia, arthralgia, joint swelling, back pain, neck pain SKIN: Absent: rash, itching, pallor HEMATOLOGIC/IMMUNOLOGIC: Absent: easy bleeding, easy bruising, lymphadenopathy, frequent infections ENDOCRINE: Absent: unexplained weight gain, unexplained weight loss, heat intolerance, cold intolerance NEUROLOGIC: Absent: headache, focal weakness or paresthesias, dizziness, unsteady gait, seizure, mental status changes, bladder or bowel incontinence PSYCHIATRIC: Absent: anxiety, depression, suicidal or homicidal ideation, hallucinations. PHYSICAL EXAMINATION Vital Signs - 24 hr 09/17/19 09/17/19 14:35 19:47 Temperature 97.8 F 97.9 F Pulse Rate 50 L Pulse Rate [ 88 Apical] Respiratory 18 18 Rate Blood Pressure 116/72 Blood Pressure 117/81 [Right Arm] O2 Sat by Pulse 98 98 Oximetry (%) PE VSS GA comfortable, aaox3, speaks in full sentences HEENT NC/AT, EOMI, scleral icterus present, neck supple, no JVD Chest CTAB, no crackles or wheezing CVS S1, S2+, sinus bradycardia, BETTY+ Abd Soft, NT, ND, liver edge palpable Ext NO LE edema, good pulses UE and LE, no calf tenderness Laboratory Results - last 24 hr 09/17/19 09/17/19 09/17/19 15:37 15:38 15:38 WBC 9.5 RBC 4.35 Hgb 13.4 Hct 40.4 D MCV 92.9 MCH 30.7 D MCHC 33.1 RDW 17.4 H Plt Count 168 D MPV 10.0 D Absolute Neuts (auto) 7.0 Neutrophils % 73.7 Lymphocytes % 18.3 Monocytes % 7.3 Eosinophils % 0.0 D Basophils % 0.7 D Nucleated RBC % 0 Platelet Estimate Adequate Platelet Comment No clumping noted PT with INR INR PTT (Actin FS) Sodium Potassium Chloride Carbon Dioxide Anion Gap BUN Creatinine Est GFR (CKD-EPI)AfAm Est GFR (CKD-EPI)NonAf Random Glucose Calcium Total Bilirubin AST ALT Alkaline Phosphatase Creatine Kinase 389 H Creatine Kinase Index 0.5 CK-MB (CK-2) 2.1 Troponin I < 0.02 Total Protein Albumin Lipase Urine Color Urine Appearance Urine pH Ur Specific [place] Urine Protein Urine Glucose (UA) Urine Ketones Urine Blood Urine Nitrite Urine Bilirubin Urine Urobilinogen Ur Leukocyte Esterase Urine WBC (Auto) Urine RBC (Auto) Urine Casts (Auto) U Epithel Cells (Auto) Urine Bacteria (Auto) Stool Occult Blood Positive Blood Type Antibody Screen 09/17/19 09/17/19 09/17/19 15:38 15:38 15:38 WBC RBC Hgb Hct MCV MCH MCHC RDW Plt Count MPV Absolute Neuts (auto) Neutrophils % Lymphocytes % Monocytes % Eosinophils % Basophils % Nucleated RBC % Platelet Estimate Platelet Comment PT with INR 12.00 INR 1.02 PTT (Actin FS) 29.5 Sodium 132 L Potassium 5.9 H Chloride 92 L Carbon Dioxide 30 Anion Gap 9 BUN 50.8 H Creatinine 1.8 H Est GFR (CKD-EPI)AfAm 43.23 Est GFR (CKD-EPI)NonAf 37.30 Random Glucose 121 H Calcium 9.4 Total Bilirubin 1.0 AST 49 H ALT 20 Alkaline Phosphatase 79 Creatine Kinase Creatine Kinase Index CK-MB (CK-2) Troponin I Total Protein 8.1 Albumin 4.3 Lipase 174 Urine Color Urine Appearance Urine pH Ur Specific [place] Urine Protein Urine Glucose (UA) Urine Ketones Urine Blood Urine Nitrite Urine Bilirubin Urine Urobilinogen Ur Leukocyte Esterase Urine WBC (Auto) Urine RBC (Auto) Urine Casts (Auto) U Epithel Cells (Auto) Urine Bacteria (Auto) Stool Occult Blood Blood Type Cancelled Antibody Screen Cancelled 09/17/19 09/17/19 09/17/19 18:12 18:12 18:55 WBC RBC Hgb Hct MCV MCH MCHC RDW Plt Count MPV Absolute Neuts (auto) Neutrophils % Lymphocytes % Monocytes % Eosinophils % Basophils % Nucleated RBC % Platelet Estimate Platelet Comment PT with INR INR PTT (Actin FS) Sodium Potassium 4.5 Chloride Carbon Dioxide Anion Gap BUN Creatinine Est GFR (CKD-EPI)AfAm Est GFR (CKD-EPI)NonAf Random Glucose Calcium Total Bilirubin AST ALT Alkaline Phosphatase Creatine Kinase Creatine Kinase Index CK-MB (CK-2) Troponin I Total Protein Albumin Lipase Urine Color Yellow Urine Appearance Clear Urine pH >= 9.0 H D Ur Specific [place] 1.016 Urine Protein 1+ H Urine Glucose (UA) Negative Urine Ketones Trace H Urine Blood Negative Urine Nitrite Negative Urine Bilirubin Negative Urine Urobilinogen 1.0 Ur Leukocyte Esterase Negative Urine WBC (Auto) 0 Urine RBC (Auto) 0 Urine Casts (Auto) 0 U Epithel Cells (Auto) 0.3 Urine Bacteria (Auto) 0.5 Stool Occult Blood Blood Type A POSITIVE Antibody Screen Negative ASSESSMENT/PLAN: 68 M h/o CAD s/p CABG in 2003 w/ restenosis requiring 3 stents in 2019, HFrEF with EF of 15%, HTN, HLD, Etoh abuse, presents with epigastric pain and episodes of vomiting dark contents and having BM with dark stools, stool guiac+ . UGIB in the past EGD showed gastritis likely Etoh induced but had food contents so was non-diagnostic supposed to have repeat EGD scheduled tomorrow Placed GI consult, NPO midnight for possible EGD in AM: Dr. Quiroz Pantoprazole 40mg IVP BID for suspected UGIB Trend CBC Counseled on etoh cessation HFrEF Last EF ~15-20% likely multifactorial ischemic and Etoh induced Restart Metoprolol and Imdur, hold Spironolactone and Lasix in view of OLIMPIA ( likely prerenal) patient appears clinically dry, hold DAPT Monitor VS Cardiology consult: Dr Marie in view of active UGIB patient cannot tolerate DAPT HTN controlled, restart home BP meds HLD Cont,. Atorvastatin 40mg daily Etoh dependence Thiamine, FA, MV, IV hydration counseled on Etoh cessation Monitor for withdrawal symptoms DVT PPX: SCD for now FEN: gentle hydration, BID electrolytes, clear liquid diet with NPO midnight Visit type - Emergency Visit Emergency Visit: Yes ED Registration Date: 09/17/19 Care time: The patient presented to the Emergency Department on the above date and was hospitalized for further evaluation of their emergent condition. - New Patient This patient is new to me today: Yes Date on this admission: 09/17/19 - Critical Care Critical Care patient: No
[2019-09-17] MEDS: PANTOPRAZOLE SODIUM 40 MG VIAL IVPUSH SCH (22:12)
[2019-09-17] MEDS: ATORVASTATIN CA 40 MG TABLET (FP) PO SCH (22:12)
[2019-09-17] MEDS ORDERED: ATORVASTATIN CA 40 MG TABLET (FP) ONE (22:15)
[2019-09-18 02:26] VITALS: BMI 20.3
[2019-09-18 06:28] LABS: BASO % 0.1 % (0-2.0); EOS % 0.5 % (0-4.5); HEMATOCRIT 33.6 % (35.4-49); LYMPH % 25.2 % (8-40); MCH 30.6 pg (25.7-33.7); MCHC 32.7 g/dl (32.0-35.9); MEAN CELL VOLUME 93.8 fl (80-96); MEAN PLT VOLUME 10.1 fl (7.5-11.1); MONO % 9.7 % (3.8-10.2); NEUT % 64.5 % (42.8-82.8); PLATELET COUNT 125 K/MM3 (134-434); RBC 3.58 M/mm3 (4.00-5.60); RDW 16.7 % (11.9-15.9); WHITE BLOOD COUNT 6.6 K/mm3 (4.0-10.0)
[2019-09-18 06:51] LABS: CALCIUM 8.3 mg/dL (8.5-10.1); CREATININE 1.4 mg/dL (0.55-1.3); POTASSIUM 3.7 mmol/L (3.5-5.1)
--- NOTE | 2019-09-18 08:04 | CON.CARD ---
Consult Consult Specialty:: cardiology Reason for Consultation:: abdominal pain; severe systolic CHF with hx hypotension - History of Present Illness Chief Complaint: Pt A&Ox3; no chest pain, dyspnea. Pt says he has returned to working full-time, but "messed up" (started drinking alcohol again: 1/2 pint gin daily x weeks; last drink "Tuesday"). History of Present Illness: 69-year-old black male with history of dilated ischemic cardiomyopathy (2018 ECHO: severely reduced LVEF), CAD s/p drug-eluting stents (proximal LAD 2017; mid Cx 09/2018), hyperlipidemia, acute/chronic alcoholism, s/p bioprosthetic mitral valve replacement ?2002), alcoholism, PUD/esophagitis with upper GI bleed requiring transfusion in the past, last endoscopy in January 2019 at [facility] noting esophagitis, anemia, (was tranferred there from [facility] when considered too hehodynamically unstable to have procedure done here), started on pantoprazole at that time with plans to repeat endoscopy in 2 months but patient never followed up, presents now with 3 to 4 days of worsening abdominal complaints initially with, black/green diarrhea followed by diffuse abdominal pain and vomiting. Presentation reportedly similar to past PUD flare , last alcohol intake was yesterday (1/2 pint gin daily for past several weeks) , of note ran out of his PPI on 09/07 . Yes: CAD (s/p CABG; s/p DEStent LAD ?2018; and biologic valve replacement at [facility] 2002. No infarctions.), Hyperlipidemia Gastrointestinal: Yes: Other (multiple colon polyps) Psych: Yes: (alcohol) Rheumatology: Yes: Gout Pt has worked for many years for [employer]; he returned to work after 02/04 hospitalization, and has been working there full-time since. - History Source History Provided By: Patient, Medical Record Limitations to Obtaining History: No Limitations - Past Medical History Cardio/Vascular: Yes: CAD (s/p CABG and biologic valve replacement [facility] 2002. NO infarctions. ), CHF (systolic), HTN, Hyperlipdemia Gastrointestinal: Yes: Other (multiple colon polyps) Psych: Yes: Addictions ([place]) Rheumatology: Yes: Gout - Past Surgical History Past Surgical History: Yes: [facility]oscopy, Stent (multiple cardiac - at least 3, last in 10/07). 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 History of Recent Travel: No Home Medications - Allergies Allergies/Adverse Reactions: Allergies Allergy/AdvReac Type Severity Reaction Status Date / Time No Known Allergies Allergy Verified 09/17/19 14:38 - Home Medications Home Medications: Ambulatory Orders Allopurinol [Zyloprim -] 300 mg PO DAILY 05/20/18 Aspirin [ASA -] 81 mg PO DAILY tab.chew 05/31/18 Clopidogrel Bisulfate [Plavix -] 75 mg PO DAILY tablet 05/31/18 Atorvastatin Ca [Lipitor] 40 mg PO HS 01/15/19 Furosemide [Lasix -] 40 mg PO DAILY 01/15/19 Lisinopril 5 mg PO DAILY 01/15/19 Metoprolol Succinate 12.5 mg PO DAILY 04/17/19 Nitroglycerin 0.4 mg SL PRN 09/17/19 Family Medical History Family History: Denies Review of Systems - Review of Systems Constitutional: reports: Weakness Eyes: reports: No Symptoms HENT: reports: No Symptoms Neck: reports: No Symptoms Cardiovascular: reports: No Symptoms Respiratory: reports: No Symptoms Gastrointestinal: reports: Abdominal Pain Genitourinary: reports: No Symptoms Breasts: reports: No Symptoms Reported Musculoskeletal: reports: Muscle Weakness Integumentary: reports: No Symptoms Neurological: reports: Weakness Endocrine: reports: No Symptoms Hematology/Lymphatic: reports: No Symptoms Psychiatric: reports: Other (alcoholixm) - Risk Factors Known Risk Factors: Yes: Age, Gender, Hypercholesterolemia, Hypertension, Race, Other (alcoholism; systolic CHF; CAD) Vital Signs: Vital Signs Temperature 98.5 F 09/18/19 05:59 Pulse Rate 84 09/18/19 05:59 Respiratory Rate 16 09/18/19 05:59 Blood Pressure 111/73 09/18/19 05:59 O2 Sat by Pulse Oximetry (%) 100 09/18/19 02:27 Constitutional: Yes: No Distress Eyes: Yes: WNL HENT: Yes: WNL Neck: Yes: WNL Respiratory: Yes: WNL Gastrointestinal: Yes: Tenderness Renal/: No: Anuria Cardiovascular: Yes: Tachycardia JVD: No Carotid Bruit: No PMI: Displaced Heart Sounds: Yes: S1, S2, S4 Murmur: Yes: Systolic Murmur Musculoskeletal: Yes: Muscle Weakness Extremities: Yes: Cool Edema: No Peripheral Pulses WNL: Yes Integumentary: Yes: WNL Neurological: Yes: Alert, Oriented Psychiatric: Yes: Alert, Oriented - Other Data Labs, Other Data: CBC, BMP 09/18/19 05:40 09/18/19 05:40 INR, PTT INR 1.02 (0.83-1.09) 09/17/19 15:38 Troponin, BNP 09/17/19 15:38 Troponin I < 0.02 Troponin, BNP 09/17/19 15:38 Troponin I < 0.02 Abnormal Lab Results 09/21/19 09/21/19 09/21/19 05:55 05:55 05:55 RBC 3.54 L Hgb 10.9 L Hct 33.8 L RDW 16.7 H Monocytes % 11.9 H Retic Count 2.65 H Anion Gap 6 L Random Glucose 107 H Phosphorus 2.2 L Iron 29 L Iron Saturation 11 L Total Protein 5.8 L Albumin 3.1 L Echo: Report Reviewed Prior Cardiac Procedures: PTCA with Stent Ejection Fraction %: LVEF < 40 % Imaging - Results Chest X-ray: Image Reviewed EKG: Image Reviewed Problem List - Problems (1) Esophagitis Assessment/Plan: Pt underwent EGD 01/2019 after transfer to [facility]; reportedly was to have had repeat EGD two months later. At that time, ASA and clopidogrel were held due to severe anemia. Now undergoing workup for abdominal disorder. Restart aspirin immediately; restart clopidogrel when cleared by hematology and GI. Code(s): K20.9 - ESOPHAGITIS, UNSPECIFIED (2) Acute on chronic systolic and diastolic heart failure, NYHA class 3 Assessment/Plan: severely reduced LVEF. On metoprolol ER. Restart lisinopril and spironolactone) as tolerated by BP, BUN/Cr and electrolytes. Code(s): I50.43 - ACUTE ON CHRONIC COMBINED SYSTOLIC AND DIASTOLIC HRT FAIL (3) Alcohol addiction Assessment/Plan: detox protocol. Code(s): F10.20 - ALCOHOL DEPENDENCE, UNCOMPLICATED Qualifiers: Substance use status: uncomplicated Qualified Code(s): F10.20 - Alcohol dependence, uncomplicated (4) Anemia Assessment/Plan: Pt came in dehydrated; BUN/Cr now close to normal, with Hb initially 13.4--> 10.9 now. GI workup in progress. Code(s): D64.9 - ANEMIA, UNSPECIFIED Qualifiers: Anemia type: unspecified type Qualified Code(s): D64.9 - Anemia, unspecified (5) CAD (coronary artery disease) Assessment/Plan: S/p DEStents 08/06 (prox LAD) and 10/07 (Cx). Restart ASA now, and Plavix when cleared by hematology and GI. Aggressive contol of lipids; f/u lipid profile. On metoprolol ER. Code(s): I25.10 - ATHSCL HEART DISEASE OF [place] CORONARY ARTERY W/O ANG PCTRS Qualifiers: Coronary Disease-Associated Artery/Lesion type: unspecified vessel or lesion type [place] vs. transplanted heart: [place] heart Associated angina: without angina Qualified Code(s): I25.10 - Atherosclerotic heart disease of [place] coronary artery without angina pectoris (6) Hyperlipidemia Assessment/Plan: f/u lipid profile; on statin. AST elevated (49). Code(s): E78.5 - HYPERLIPIDEMIA, UNSPECIFIED (7) Elevated LFTs Code(s): R94.5 - ABNORMAL RESULTS OF LIVER FUNCTION STUDIES
[2019-09-18] MEDS ORDERED: PT OWN MED DRAWER 7, Y5N ONE ×2 (09:24→14:13)
[2019-09-18] MEDS: PANTOPRAZOLE SODIUM 40 MG VIAL IVPUSH SCH ×2 (09:37→21:16)
[2019-09-18] MEDS: FOLIC ACID 1 MG TABLET (FP) PO SCH (09:37)
[2019-09-18] MEDS: MULTIVITAMINS (DAILY MVI) TABLET (FP) PO SCH (09:37)
[2019-09-18] MEDS: THIAMINE HCL 100 MG TABLET (FP) PO SCH (09:37)
[2019-09-18] MEDS: ISOSORBIDE MONONITRATE 30 MG TAB.SR.24H (FP) PO SCH (09:39)
[2019-09-18] MEDS: metoPROLOL SUCCINATE 25 MG TAB.SR.24H (FP) PO SCH ×2 (09:41→10:07)
[2019-09-18] MEDS ORDERED: METOPROLOL TARTRATE 25 MG TABLET (FP) PO SCH (10:00)
--- NOTE | 2019-09-18 10:24 | EKG ---
Test Reason : Blood Pressure : / mmHG Vent. Rate : 102 BPM Atrial Rate : 102 BPM P-R Int : 160 ms QRS Dur : 086 ms QT Int : 362 ms P-R-T Axes : 000 -25 133 degrees QTc Int : 471 ms SINUS TACHYCARDIA WITH FREQUENT and consecutive PREMATURE VENTRICULAR COMPLEXES and pac's LOW VOLTAGE QRS CANNOT RULE OUT INFERIOR INFARCT , AGE UNDETERMINED ABNORMAL ECG WHEN COMPARED WITH ECG OF 17-APR-2019 20:15, PREMATURE VENTRICULAR COMPLEXES ARE NOW PRESENT NONSPECIFIC T WAVE ABNORMALITY, WORSE IN ANTERIOR LEADS Confirmed by MD Lottie, Dereck ([id number]) on 09/18/2019 10:23:46 AM Referred By: Confirmed By:Dereck Tafoya MD
--- NOTE | 2019-09-18 10:51 | PN ---
Progress Note (short form) - Note Progress Note: Hospitalist Medicine Resting in bed. Is feeling well, only feeling hungry as he is NPO. Was having "small amounts of blood" in his BM and emesis. Last drink Tuesday, no tremors Vitals 09/18/19 05:59 Temperature 98.5 F Pulse Rate 84 Respiratory 16 Rate Blood Pressure 111/73 Physical Exam general: resting in bed, in NAD HEENT: NCAT, +?cataracts neck: supple. no JVD cardio: S1, S2, RRR. no r/g. +systolic murmur pulm: CTA b/l abdomen: soft, nontender,nondistended LE: 2+ pulses, no edema Laboratory Tests 09/17/19 09/18/19 09/18/19 15:37 05:40 05:40 WBC 6.6 Hgb 11.0 L Hct 33.6 L D Plt Count 125 L D Sodium 136 Potassium 3.7 Chloride 102 Carbon Dioxide 25 BUN 32.0 H Creatinine 1.4 H Random Glucose 100 Stool Occult Blood Positive Imaging EKG: sinus tach with frequent PVCs, rate 102bpm, qtc 471ms. TWI lateral leads Assessment/Plan 68 M h/o CAD s/p CABG in 2003 w/ restenosis requiring 3 stents in 2019, HFrEF with EF of 15%, HTN, HLD, Etoh abuse, presents with epigastric pain and episodes of vomiting dark contents and having BM with dark stools, stool guiac+ . #UGIB -in the past EGD showed gastritis likely Etoh induced but had food contents so was non-diagnostic -c/w protonix 40mg IVP BID -started on octreotide gtt per GI, given hx EtOH use -c/t monitor CBC -clear liq diet, med optimization before possible EGD -GI: Dr. Sue #HFrEF -Last EF ~15-20% likely multifactorial ischemic and Etoh induced -c/w metoprolol, imdur -hold Spironolactone and Lasix in view of OLIMPIA (likely prerenal) patient appears clinically dry, hold DAPT -Cardio: Dr. Barnes #HTN-controlled -c/w metoprolol #HLD -c/w atorvastatin #Thrombocytopenia -possible this is reactive -however f/u HIV, hep C testing #EtOH dependence -CIWA 0 -Thiamine, FA, MV, IV hydration -c/t monitor for signs withdrawal- will give 3 doses valium to avoid #F/E/N: avoid IVF as w/ poor EF continue to follow lytes clear liq diet #PPX DVT: SCD's , r/o bleed #Dispo monitoring on tele medical optimization prior to possible EGD per GI
--- NOTE | 2019-09-18 12:07 | PN ---
Progress Note (short form) - Note Progress Note: GI CONSULT DICTATED - PPI / OCTROETIDE INFUSION - CLEAR LIQUID DIET - AVOID NSAID - CARDIOPULMONARY OPTIMIZATION PRIOR TO ANY POTENTIAL ENDOSCOPIC PROCEDURES SEE FULL DICTATED CONSULT
[2019-09-18] MEDS ORDERED: TRIMETHOBENZAMIDE HCL 300 MG CAPSULE PO ONE (13:24)
[2019-09-18] MEDS: diazePAM 5 MG TABLET PO SCH ×2 (14:24→21:16)
--- NOTE | 2019-09-18 15:17 | CONS ---
GASTROINTESTINAL CONSULTATION DATE OF CONSULTATION: DATE OF DICTATION: 09/18/2019 HISTORY: Patient is a 69-year-old male with a past medical history of congestive heart failure, ejection fraction 15%, CAD status post bypass and stent in 2019, alcohol dependent, COPD, hypertension, hyperlipidemia who apparently had an episode of dark stool reported in the chart and dark vomit. As per his history, he states he had 1 episode of dark stool a couple of days ago but since then has not had any further episodes. Currently, he states he is feeling better. Denies any abdominal pain, nausea, vomiting, hematochezia, or melena. He does drink alcohol daily. He states he had a colonoscopy and upper endoscopy done a couple of years ago by Dr. Fitzpatrick, and he does have a history of ulcers in the past, but last endoscopy, as per his history, does not reveal ulcer. He was seen by our service in December 2018 for coffee ground emesis. He was placed on octreotide drip at that point and was to be optimized prior to any invasive procedures. At the time during that admission, EGD was deferred secondary to anesthesia concerns. PAST MEDICAL HISTORY: As listed in the HPI. PAST SURGICAL HISTORY: As listed in the HPI with the addition of bypass surgery in 2002. SOCIAL HISTORY: Past smoker. Half a pint daily for gin. No drugs. ALLERGIES: No known drug allergies. HOME MEDICATIONS: Allopurinol, aspirin, clopidogrel, atorvastatin, furosemide, lisinopril, metoprolol, and nitroglycerin. REVIEW OF SYSTEMS: As per the HPI. PHYSICAL EXAMINATION: Vital Signs: Temperature 98, pulse 2, respiratory rate 12, blood pressure 134/70, pulse oximetry 100% on room air. General: In no acute distress. HEENT: Anicteric sclerae. Cardiovascular: S1, S2. Regular rate and rhythm. Lungs: Bilaterally clear to auscultation. Abdomen: Soft, nontender. Extremities: Without edema. LABORATORIES: White blood cell count 6.6, hemoglobin 11, hematocrit 33. Yesterday was hemoglobin 13.4, hematocrit 40. MCV 93, platelet count 125, INR 1. Sodium 136, potassium 3.7, BUN 32, creatinine 1.4, total bilirubin 1, AST 49, ALT 20, alkaline phosphatase 79. Troponin is negative x1. Lipase 174. Stool for occult blood is positive. He did not have any abdominal imaging during this admission. IMPRESSION: Episode of what appears to be melena, per history, and dark vomitus, coffee ground emesis. There is no history of an overt gastrointestinal bleed at this time. RECOMMENDATION: Advance to clear liquid diet. Would start him on a Protonix infusion. He can also be started back on octreotide infusion considering his alcohol history. Avoid NSAID. Serial CBCs every 12 hour. Monitor for any overt bleeding. For now, he will need to be optimized from a cardiopulmonary perspective prior to any endoscopic evaluations. He can be re-evaluated tomorrow regarding the timing of potential upper endoscopy. DO GUERITA CALDERON/[id number]
[2019-09-18] MEDS: OCTREOTIDE ACETATE 200 MCG, OCTREOTIDE ACETATE 1,000 MCG in DEXTROSE 5%-WATER - 496 ML IVPB SCH (15:53)
[2019-09-18] MEDS ORDERED: TRIMETHOBENZAMIDE HCL 200MG/2ML INJ IM ONE (18:39)
[2019-09-18] MEDS ORDERED: ACETAMINOPHEN 325 MG TABLET (FP) PO PRN (21:05)
[2019-09-18] MEDS: ATORVASTATIN CA 40 MG TABLET (FP) PO SCH (21:15)
[2019-09-19] MEDS: MELATONIN 1 MG TABLET PO SCH ×2 (01:22→21:19)
[2019-09-19 06:25] LABS: BASO % 0.2 % (0-2.0); EOS % 0.8 % (0-4.5); HEMATOCRIT 32.9 % (35.4-49); HEMOGLOBIN 10.7 GM/dL (11.7-16.9); LYMPH % 30.1 % (8-40); MCH 30.8 pg (25.7-33.7); MCHC 32.6 g/dl (32.0-35.9); MEAN CELL VOLUME 94.5 fl (80-96); MEAN PLT VOLUME 10.1 fl (7.5-11.1); MONO % 10.8 % (3.8-10.2); NEUT % 58.1 % (42.8-82.8); PLATELET COUNT 127 K/MM3 (134-434); RBC 3.48 M/mm3 (4.00-5.60); RDW 16.2 % (11.9-15.9)
[2019-09-19 06:53] LABS: CALCIUM 8.1 mg/dL (8.5-10.1); CREATININE 1.3 mg/dL (0.55-1.3); MAGNESIUM 1.6 mg/dL (1.8-2.4); PHOSPHOROUS 2.4 mg/dL (2.5-4.9); POTASSIUM 3.8 mmol/L (3.5-5.1)
--- NOTE | 2019-09-19 09:14 | PN.GI ---
GI Progress Note Subjective: For Jalen No vomiting No melena No abdominal pain ASA/Plavix held 09/17 Patient states that last dark BM was last week - Objective Vital Signs: Vital Signs Temperature 98.2 F 09/19/19 09:01 Pulse Rate 75 09/19/19 09:01 Respiratory Rate 18 09/19/19 09:01 Blood Pressure 101/61 09/19/19 09:01 O2 Sat by Pulse Oximetry (%) 100 09/18/19 21:00 Constitutional: Calm Eyes: No: Sclera Icterus Cardiovascular: Yes: Regular Rate and Rhythm Respiratory: Yes: CTA Bilaterally Gastrointestinal Inspection: No: Distention ...Auscultate: Yes: Normoactive Bowel Sounds ...Palpate: Yes: Soft. No: Hepatomegaly, Splenomegaly, Tenderness Edema: No (No LE edema) Neurological: Yes: Alert, Oriented Labs: CBC, BMP 09/19/19 05:35 09/19/19 05:35 INR, PTT INR 1.02 (0.83-1.09) 09/17/19 15:38 Hepatic Panel Total Bilirubin 1.0 mg/dL (0.2-1) 09/17/19 15:38 AST 49 U/L (15-37) H 09/17/19 15:38 ALT 20 U/L (13-61) 09/17/19 15:38 Alkaline Phosphatase 79 U/L (45-117) 09/17/19 15:38 Albumin 4.3 g/dl (3.4-5.0) 09/17/19 15:38 Problem List - Problems (1) Upper GI bleed Assessment/Plan: Hemodyamically stable without overt ongoing GI bleeding Continue to monitor for now If overt bleeding, change in hemodynamics, transfer to ICU On octreotide / protonix Clear liquids Explained the need for complete alcohol cessation ASA/plavix held from 09/17 Plan for EGD tentatively 09/21. Discussed potential risks of the procedure like but not limited to bleeding, perforation requiring surgery to repair, infection , sedation medication effects all of which could be potentially life threatening. he has agreed. Case to be discused with cardiology. Code(s): K92.2 - GASTROINTESTINAL HEMORRHAGE, UNSPECIFIED
[2019-09-19] MEDS: metoPROLOL SUCCINATE 25 MG TAB.SR.24H (FP) PO SCH (09:46)
[2019-09-19] MEDS: PANTOPRAZOLE SODIUM 40 MG VIAL IVPUSH SCH ×2 (09:46→21:19)
[2019-09-19] MEDS: ISOSORBIDE MONONITRATE 30 MG TAB.SR.24H (FP) PO SCH (09:47)
[2019-09-19] MEDS: FOLIC ACID 1 MG TABLET (FP) PO SCH (09:47)
[2019-09-19] MEDS: THIAMINE HCL 100 MG TABLET (FP) PO SCH (09:47)
[2019-09-19] MEDS: MULTIVITAMINS (DAILY MVI) TABLET (FP) PO SCH (09:47)
[2019-09-19] MEDS: diazePAM 5 MG TABLET PO SCH (09:47)
--- NOTE | 2019-09-19 11:17 | PN ---
Progress Note (short form) - Note Progress Note: This patient is 69 years old male admitted for GI bleeding. His initial hemoglobin was 13 and today is 10.5. He denies any bleeding today no nausea vomiting fever and chills. He is already seeing nutrition services manager in the hospital we have plan to do endoscopy tomorrow. He denies any fever chills nausea vomiting diarrhea he ate well clear liquid diet. Rest of review systems are normal. Vital signs Vital Signs Period Temp Pulse Resp BP Sys/Reyes Pulse Ox Last 24 Hr 97.5 F-98.4 F 63-101 16-18 97-134/59-85 100-100 Physical Exam general: resting in bed, in NAD HEENT: NCAT, +?cataracts neck: supple. no JVD cardio: S1, S2, RRR. no r/g. +systolic murmur pulm: CTA b/l abdomen: soft, nontender,nondistended LE: 2+ pulses, no edema CBC, BMP 09/19/19 05:35 09/19/19 05:35 Assessment and plan This is 59 years old male with history of CABG and also hypertension hyperlipidemia and chronic alcoholism who came to ER with epigastric pain and also vomiting dark contacts and GI bleeding and positive guaiac stool. Anemia due to GI blood loss his hemoglobin is a stable at this time will continue to monitor and continue Protonix 40 mg IV twice a day GI consult Heart failure He is stable has no shortness of breath continue metoprolol Imdur and Lasix Hypertension stable in the hospital continue metoprolol Hyperlipidemia he is on atorvastatin continue same dose History of chronic alcoholism in the ER he received thiamine and and alcohol protocol fluids he is stable at this time discussed with him and in detail about need for stopping alcohol especially in the history of GI bleeding. Visit type - Emergency Visit Emergency Visit: Yes ED Registration Date: 09/17/19 Care time: The patient presented to the Emergency Department on the above date and was hospitalized for further evaluation of their emergent condition. - New Patient This patient is new to me today: Yes Date on this admission: 09/19/19 - Critical Care Critical Care patient: No - Discharge Referral Referred to [facility] Med P.C.: No
--- NOTE | 2019-09-19 13:59 | PN ---
Progress Note (short form) - Note Progress Note: Coverage for Dr. Ronal Barnes Chief Complaint: Events noted, notes reviewed, patient denies any further bleed , patient denies any chest discomfort or dyspnea History of Present Illness: Seen and examined on telemetry. Events noted, notes reviewed, patient denies any further bleed, patient denies any chest discomfort or dyspnea - Current Medication List Current Medications Acetaminophen (Tylenol -) 650 mg PO Q6H PRN PRN Reason: Fever Or Pain Last Admin: 09/18/19 21:13 Dose: 650 mg Atorvastatin Calcium (Lipitor -) 40 mg PO HS [facility] Last Admin: 09/18/19 21:15 Dose: 40 mg Folic Acid (Folic Acid -) 1 mg PO DAILY [facility] Last Admin: 09/19/19 09:47 Dose: 1 mg Octreotide Acetate 200 mcg/Octreotide Acetate 1,000 mcg/Dextrose 500 mls @ 20.833 mls/hr IVPB ASDIR [facility] Last Admin: 09/18/19 15:53 Dose: 20.833 mls/hr Isosorbide Mononitrate (Imdur -) 30 mg PO DAILY [facility] Last Admin: 09/19/19 09:47 Dose: 30 mg Melatonin (Melatonin) 3 mg PO HS [facility] Last Admin: 09/19/19 01:22 Dose: 3 mg Metoprolol Succinate (Toprol Xl -) 12.5 mg PO DAILY [facility] Last Admin: 09/19/19 09:46 Dose: 12.5 mg Multivitamins/Minerals/Vitamin C (Tab-A-Vit -) 1 tab PO DAILY [facility] Last Admin: 09/19/19 09:47 Dose: 1 tab Pantoprazole Sodium (Protonix Iv) 40 mg IVPUSH BID [facility] Last Admin: 09/19/19 09:46 Dose: 40 mg Thiamine HCl (Vitamin B1 -) 100 mg PO DAILY [facility] Last Admin: 09/19/19 09:47 Dose: 100 mg Review of Systems - Review of Systems Constitutional: no symptoms reported Respiratory: denies Cough or Sputum Production Cardiovascular: as noted above Gastrointestinal: denies Nausea, Vomiting, Diarrhea, Constipation or Abdominal Pain Genitourinary: no symptoms reported Musculoskeletal: no symptoms reported Endocrine: no symptoms reported - Objective Vital Signs: Last Vital Signs Temp Pulse Resp BP Pulse Ox 98.2 F 75 18 101/61 100 09/19/19 09:01 09/19/19 09:01 09/19/19 09:01 09/19/19 09:01 09/19/19 09:00 Intake & Output 09/16/19 09/17/19 09/18/19 09/19/19 23:59 23:59 23:59 23:59 Intake Total 1600 470 799.6 Output Total 550 200 Balance 1600 -80 599.6 Weight 153 lb 146 lb Neck: Supple Negative JVD No Bruit Cardiovascular: S1 S2 Regular Rate and Rhythm Ectopics Respiratory: clear to A&P Gastrointestinal: Soft Benign Normal Bowel Sounds Extremities: Negative edema Labs: CBC, BMP 09/19/19 05:35 09/19/19 05:35 INR, PTT INR 1.02 (0.83-1.09) 09/17/19 15:38 Assessment/Plan ASSESSMENT: 1. Upper gastrointestinal bleed most likely related to recurrent esophagitis, prior history 2. Coronary artery disease post CABG/PCI/stent angina pectoris 3. Systolic left ventricular dysfunction/dilated ischemic cardiomyopathy with clinical class I [place] [employer] classification left ventricular failure, currently compensated/euvolemic 4. Post mitral valve replacement/bioprosthesis 5. Hypertensive cardiovascular disease 6. Hypercholesterolemia 7. History of alcoholism 8. Chronic kidney disease 9. Anemia and thrombocytopenia PLAN: 1. Agree with Ecotrin and Plavix therapy withhold pending completion of gastrointestinal evaluation 2. Continue Toprol-XL 3. Consider the addition of Entresto therapy unless it is absolutely contraindicated 4. Continue Imdur 5. Continue Lipitor 6. Consideration for prophylactic ICD implantation considering the above-noted history of systolic left ventricular dysfunction/dilated ischemic cardiomyopathy with LVEF of less than 35%, unless there are contraindications including patient's compliance with therapy administration and medical follow-up 7. There are no absolute contraindications in proceeding with planned gastrointestinal evaluation considering that there is no clinical evidence of acute coronary syndrome and/or decompensated congestive heart failure and/or malignant ventricular arrhythmia Toshia Zaragoza MD
[2019-09-19] MEDS: OCTREOTIDE ACETATE 200 MCG, OCTREOTIDE ACETATE 1,000 MCG in DEXTROSE 5%-WATER - 496 ML IVPB SCH (15:36)
[2019-09-19] MEDS ORDERED: PT OWN MED DRAWER 7, Y5N ONE (21:05)
[2019-09-19] MEDS: ATORVASTATIN CA 40 MG TABLET (FP) PO SCH (21:19)
--- NOTE | 2019-09-20 08:27 | PN ---
Teaching Attending Note Name of Resident: Yodit Mcintyre ATTENDING PHYSICIAN STATEMENT I saw and evaluated the patient. I reviewed the resident's note and discussed the case with the resident. I agree with the resident's findings and plan as documented. SUBJECTIVE: No recurrence of melena OBJECTIVE: Vital Signs Temperature 97.7 F 09/20/19 06:38 Pulse Rate 80 09/20/19 06:38 Respiratory Rate 22 H 09/20/19 06:38 Blood Pressure 115/73 09/20/19 06:38 O2 Sat by Pulse Oximetry (%) 100 09/19/19 21:00 General: Elderly man, comfortable, not in distress HEENT; mucous membranes moist, no anemia, no jaundice, PERRLA, no nystagmus Neck: No JVD, supple, no bruit, thyroid palpably normal, normal carotid pulsations. Chest: Nontender, clear to auscultation bilaterally/bilateral wheezing/ bilateral basal rales. CVS: S1-S2 regular/irregular no murmur/gallop/rub Abdomen: Nondistended, soft, bowel sounds present. Extremities: No edema., No cough tenderness, pulses present SOFTWARE ANALYST: AO X3 , no gross motor sensory deficit CBC, BMP 09/19/19 05:35 09/19/19 05:35 Active Medications Acetaminophen (Tylenol -) 650 mg PO Q6H PRN PRN Reason: Fever Or Pain Last Admin: 09/18/19 21:13 Dose: 650 mg Atorvastatin Calcium (Lipitor -) 40 mg PO HS [facility] Last Admin: 09/19/19 21:19 Dose: 40 mg Folic Acid (Folic Acid -) 1 mg PO DAILY [facility] Last Admin: 09/19/19 09:47 Dose: 1 mg Octreotide Acetate 200 mcg/Octreotide Acetate 1,000 mcg/Dextrose 500 mls @ 20.833 mls/hr IVPB ASDIR [facility] Last Admin: 09/19/19 15:36 Dose: 20.833 mls/hr Isosorbide Mononitrate (Imdur -) 30 mg PO DAILY [facility] Last Admin: 09/19/19 09:47 Dose: 30 mg Melatonin (Melatonin) 3 mg PO HS [facility] Last Admin: 09/19/19 21:19 Dose: 3 mg Metoprolol Succinate (Toprol Xl -) 12.5 mg PO DAILY [facility] Last Admin: 09/19/19 09:46 Dose: 12.5 mg Multivitamins/Minerals/Vitamin C (Tab-A-Vit -) 1 tab PO DAILY [facility] Last Admin: 09/19/19 09:47 Dose: 1 tab Pantoprazole Sodium (Protonix Iv) 40 mg IVPUSH BID [facility] Last Admin: 09/19/19 21:19 Dose: 40 mg Thiamine HCl (Vitamin B1 -) 100 mg PO DAILY [facility] Last Admin: 09/19/19 09:47 Dose: 100 mg ASSESSMENT AND PLAN: 69 years old man with multiple medical comorbidities including CAD status post CABG, ischemic cardiomyopathy, heart failure with reduced ejection fraction, hypertension patient is on dual antiplatelet therapy , presents with melena with drop in H&H, evaluated by GI and cardiology currently of antiplatelet therapy, H&H is stable, no new episode of melena patient is scheduled for EGD/colonoscopy. Plan: Continue current management Problem List - Problems (1) Upper GI bleed Assessment/Plan: Continue octreotide and PPI, of dual antiplatelet therapy, will follow GI recommendations for EGD, cleared by cardiology for the procedure. Problems reviewed: Yes Code(s): K92.2 - GASTROINTESTINAL HEMORRHAGE, UNSPECIFIED (2) Heart failure with reduced ejection fraction, NYHA class II Assessment/Plan: Compensated due to his ischemic cardiomyopathy, needs evaluation AICD placement for primary prevention ventricular arrhythmia. Problems reviewed: Yes Code(s): I50.20 - UNSPECIFIED SYSTOLIC (CONGESTIVE) HEART FAILURE (3) Acute kidney injury superimposed on CKD Assessment/Plan: Improving on IV hydration follow BMP Problems reviewed: Yes Code(s): N17.9 - ACUTE KIDNEY FAILURE, UNSPECIFIED; N18.9 - CHRONIC KIDNEY DISEASE, UNSPECIFIED (4) CAD (coronary artery disease) Assessment/Plan: Continue current management no acute ST-T changes, no elevated troponin or chest pain patient is off dual antiplatelet. Problems reviewed: Yes Code(s): I25.10 - ATHSCL HEART DISEASE OF [place] CORONARY ARTERY W/O ANG PCTRS Qualifiers: Coronary Disease-Associated Artery/Lesion type: unspecified vessel or lesion type [place] vs. transplanted heart: [place] heart Associated angina: without angina Qualified Code(s): I25.10 - Atherosclerotic heart disease of [place] coronary artery without angina pectoris (5) Acute on chronic systolic and diastolic heart failure, NYHA class 3 Assessment/Plan: Compensated continue current management, needs optimization of the therapy. Including evaluation for AICD placement. Problems reviewed: Yes Code(s): I50.43 - ACUTE ON CHRONIC COMBINED SYSTOLIC AND DIASTOLIC HRT FAIL
[2019-09-20 08:36] LABS: BASO % 0.4 % (0-2.0); EOS % 1.3 % (0-4.5); HEMATOCRIT 34.1 % (35.4-49); HEMOGLOBIN 10.9 GM/dL (11.7-16.9); LYMPH % 26.7 % (8-40); MCH 30.7 pg (25.7-33.7); MEAN PLT VOLUME 10.2 fl (7.5-11.1); MONO % 12.9 % (3.8-10.2); NEUT % 58.7 % (42.8-82.8); PLATELET COUNT 139 K/MM3 (134-434); RBC 3.55 M/mm3 (4.00-5.60); RDW 16.7 % (11.9-15.9); WHITE BLOOD COUNT 4.3 K/mm3 (4.0-10.0)
[2019-09-20 08:58] LABS: BLOOD UREA NITROGEN 11.7 mg/dL (7-18); CALCIUM 8.5 mg/dL (8.5-10.1); CREATININE 1.3 mg/dL (0.55-1.3); MAGNESIUM 1.6 mg/dL (1.8-2.4); PHOSPHOROUS 2.2 mg/dL (2.5-4.9); POTASSIUM 4.2 mmol/L (3.5-5.1)
[2019-09-20] MEDS ORDERED: MAGNESIUM SULF 50% (8.12 MEQ/2 ML-1 GM VIAL) IVPB ONE (08:59)
[2019-09-20] MEDS ORDERED: NAPH,MB-DB/K PH,MBDB POWDER PACKET PO ONE (09:00)
[2019-09-20] MEDS: PANTOPRAZOLE SODIUM 40 MG VIAL IVPUSH SCH ×2 (09:47→21:18)
[2019-09-20] MEDS: THIAMINE HCL 100 MG TABLET (FP) PO SCH (09:47)
[2019-09-20] MEDS: FOLIC ACID 1 MG TABLET (FP) PO SCH (09:47)
[2019-09-20] MEDS: MULTIVITAMINS (DAILY MVI) TABLET (FP) PO SCH (09:47)
[2019-09-20] MEDS: ISOSORBIDE MONONITRATE 30 MG TAB.SR.24H (FP) PO SCH (09:47)
[2019-09-20] MEDS: metoPROLOL SUCCINATE 25 MG TAB.SR.24H (FP) PO SCH (10:22)
--- NOTE | 2019-09-20 12:11 | PN ---
Progress Note, Physician Chief Complaint: Pt A&OX3; no chest or abdominal pain; not dyspneic. History of Present Illness: 69-year-old black male with history of dilated ischemic cardiomyopathy (2018 ECHO: severely reduced LVEF), CAD s/p drug-eluting stents (proximal LAD 2017; mid Cx 09/2018; RCA 11/2018: on ASA 81 mg/d and clopidogrel 75 mg/d since then)), hyperlipidemia, acute/chronic alcoholism, s/p bioprosthetic mitral valve replacement ?2002), alcoholism, PUD/esophagitis with upper GI bleed requiring transfusion in the past, last endoscopy in January 2019 at [facility] noting esophagitis, anemia, (was tranferred there from [facility] when severely anemic and considered too hehodynamically unstable to have procedure done here), started on pantoprazole at that time with plans to repeat endoscopy in 2 months but patient never followed up, presents now with 3 to 4 days of worsening abdominal complaints initially with, black/green diarrhea followed by diffuse abdominal pain and vomiting. Presentation reportedly similar to past PUD flare, last alcohol intake was yesterday (1/2 pint gin daily for past several weeks), of note: pt ran out of his PPI on 09/07/19. He was to see Dr. Quiroz, GI, this week, but came to hospital instead. . Yes: CAD (s/p CABG; s/p DEStent proximal LAD 07/2018; mid Cx 09/2018, cor angiogram 11/2018 noted RCA 50/5stenosis proximal, 70% mid, 80% distal: planned for future evaluation and possible stent); and biologic valve replacement at [facility]. No infarctions.), Hyperlipidemia Gastrointestinal: Yes: Other (multiple ?colon polyps) Psych: Yes: (alcohol) Rheumatology: Yes: Gout GI: Dr. Calin Quiroz - Current Medication List Current Medications: Active Medications Acetaminophen (Tylenol -) 650 mg PO Q6H PRN PRN Reason: Fever Or Pain Last Admin: 09/18/19 21:13 Dose: 650 mg Aspirin (Asa -) 81 mg PO DAILY [facility] Atorvastatin Calcium (Lipitor -) 40 mg PO HS [facility] Last Admin: 09/19/19 21:19 Dose: 40 mg Folic Acid (Folic Acid -) 1 mg PO DAILY [facility] Last Admin: 09/20/19 09:47 Dose: 1 mg Octreotide Acetate 200 mcg/Octreotide Acetate 1,000 mcg/Dextrose 500 mls @ 20.833 mls/hr IVPB ASDIR [facility] Last Admin: 09/19/19 15:36 Dose: 20.833 mls/hr Isosorbide Mononitrate (Imdur -) 30 mg PO DAILY [facility] Last Admin: 09/20/19 09:47 Dose: 30 mg Melatonin (Melatonin) 3 mg PO HS [facility] Last Admin: 09/19/19 21:19 Dose: 3 mg Metoprolol Succinate (Toprol Xl -) 12.5 mg PO DAILY [facility] Last Admin: 09/20/19 10:22 Dose: Not Given Multivitamins/Minerals/Vitamin C (Tab-A-Vit -) 1 tab PO DAILY [facility] Last Admin: 09/20/19 09:47 Dose: 1 tab Pantoprazole Sodium (Protonix Iv) 40 mg IVPUSH BID [facility] Last Admin: 09/20/19 09:47 Dose: 40 mg Thiamine HCl (Vitamin B1 -) 100 mg PO DAILY [facility] Last Admin: 09/20/19 09:47 Dose: 100 mg - Objective Vital Signs: Vital Signs Temperature 98.1 F 09/20/19 09:54 Pulse Rate 68 09/20/19 09:54 Respiratory Rate 20 09/20/19 09:54 Blood Pressure 92/65 09/20/19 09:54 O2 Sat by Pulse Oximetry (%) 100 09/19/19 21:00 Constitutional: Yes: Calm Eyes: Yes: WNL HENT: Yes: WNL Neck: Yes: WNL Cardiovascular: Yes: Regular Rate and Rhythm Respiratory: Yes: WNL Gastrointestinal: Yes: Soft, Tenderness ...Rectal Exam: Yes: Deferred Genitourinary: No: Anuria Breast(s): Yes: WNL Musculoskeletal: Yes: Muscle Weakness Extremities: Yes: Cool Edema: No Peripheral Pulses WNL: Yes Integumentary: Yes: WNL Neurological: Yes: WNL Psychiatric: Yes: Alert, Oriented Labs: CBC, BMP 09/20/19 08:05 09/20/19 08:05 INR, PTT INR 1.02 (0.83-1.09) 09/17/19 15:38 Abnormal Lab Results 09/21/19 09/21/19 09/21/19 05:55 05:55 05:55 RBC 3.54 L Hgb 10.9 L Hct 33.8 L RDW 16.7 H Monocytes % 11.9 H Retic Count 2.65 H Anion Gap 6 L Random Glucose 107 H Phosphorus 2.2 L Iron 29 L Iron Saturation 11 L Total Protein 5.8 L Albumin 3.1 L Problem List - Problems (1) Esophagitis Assessment/Plan: Disussed pt with Dr. Veronica, his cardiac interventionalist. Pt has had multiple stents since 07/2019; the latest 09/2018, with planned RCA stent It is important he be restarted on both ASA and clopidogrel as soon as possible to avoid stent thrombosis. Discussed pt with Dr. Winifred Spangler. Pt will be restarted on ASA 81 mg today; Gi procedure will be scheduled for tomorrow, and clopidogrel restarted as soon as possible post-procedure. Code(s): K20.9 - ESOPHAGITIS, UNSPECIFIED (2) Acute on chronic systolic and diastolic heart failure, NYHA class 3 Assessment/Plan: severely reduced LVEF. On metoprolol ER. Restart lisinopril and sprionolactone) as tolerated by BP, BUN/Cr and electrolytes. Code(s): I50.43 - ACUTE ON CHRONIC COMBINED SYSTOLIC AND DIASTOLIC HRT FAIL (3) Alcohol addiction Assessment/Plan: detox protocol. Code(s): F10.20 - ALCOHOL DEPENDENCE, UNCOMPLICATED Qualifiers: Substance use status: uncomplicated Qualified Code(s): F10.20 - Alcohol dependence, uncomplicated (4) Anemia Assessment/Plan: Pt came in dehydrated; BUN/Cr now close to normal, with Hb initially 13.4--> 10.9 now. GI workup in progress. Code(s): D64.9 - ANEMIA, UNSPECIFIED Qualifiers: Anemia type: unspecified type Qualified Code(s): D64.9 - Anemia, unspecified (5) CAD (coronary artery disease) Code(s): I25.10 - ATHSCL HEART DISEASE OF [place] CORONARY ARTERY W/O ANG PCTRS Qualifiers: Coronary Disease-Associated Artery/Lesion type: unspecified vessel or lesion type [place] vs. transplanted heart: [place] heart Associated angina: without angina Qualified Code(s): I25.10 - Atherosclerotic heart disease of [place] coronary artery without angina pectoris (6) Hyperlipidemia Code(s): E78.5 - HYPERLIPIDEMIA, UNSPECIFIED (7) Elevated LFTs Code(s): R94.5 - ABNORMAL RESULTS OF LIVER FUNCTION STUDIES
--- NOTE | 2019-09-20 12:32 | PN ---
Progress Note (short form) - Note Progress Note: Hospitalist Medicine Without melena. In good spirits. For EGD tomorrow. on octreotide gtt Vitals 09/20/19 09:54 Temperature 98.1 F Pulse Rate 68 Respiratory 20 Rate Blood Pressure 92/65 Physical Exam general: resting in bed, in NAD HEENT: NCAT, +?cataracts neck: supple. no JVD cardio: S1, S2, RRR. no r/g. +systolic murmur pulm: CTA b/l abdomen: soft, nontender,nondistended LE: 2+ pulses, no edema Laboratory Tests 09/20/19 09/20/19 08:05 08:05 WBC 4.3 Hgb 10.9 L Hct 34.1 L Plt Count 139 Sodium 136 Potassium 4.2 Chloride 105 Carbon Dioxide 26 Anion Gap 6 L BUN 11.7 Creatinine 1.3 Est GFR (CKD-EPI)AfAm 64.07 Est GFR (CKD-EPI)NonAf 55.28 Random Glucose 114 H Phosphorus 2.2 L Magnesium 1.6 L Imaging 09/17 EKG: sinus tach with frequent PVCs, rate 102bpm, qtc 471ms. TWI lateral leads Assessment/Plan 68 M h/o CAD s/p CABG in 2002 w/ restenosis requiring 3 stents in 2019, HFrEF with EF of 15%, HTN, HLD, Etoh abuse, presents with epigastric pain and episodes of vomiting dark contents and having BM with dark stools, stool guiac+ . #UGIB -in the past EGD showed gastritis likely EtOH- induced but had food contents so was non-diagnostic -c/w protonix 40mg IVP BID -on octreotide gtt per GI, given hx EtOH use -c/t monitor CBC -clear liq diet, cleared by cardio for EGD -EGD tomorrow (09/21/19) -cardio d/w home cardio, recent stent - OK to continue asa. plavix to restart as soon as possible post procedure -GI: Dr. Sue #CAD w/ hx multiple stents, last 09/2018 -OK to restart on asa, cardio d/w GI -plavix to restart as soon as possible post procedure #HFrEF -Last EF ~15-20% likely multifactorial ischemic and Etoh induced -c/w metoprolol, imdur -hold Spironolactone and Lasix in view of OLIMPIA (likely prerenal) patient appears clinically dry, hold DAPT -Cardio: Dr. Barnes #HTN-controlled -c/w metoprolol #HLD -c/w atorvastatin #Thrombocytopenia -possible this is reactive -however f/u hep C testing -HIV (-) #EtOH dependence -CIWA 0 -Thiamine, FA, MV #F/E/N: avoid IVF as w/ poor EF continue to follow lytes clear liq diet, NPO after MN for EGD #PPX DVT: SCD's OK to c/w asa for now, cardio d/w GI #Dispo monitoring on tele for EGD tomorrow (09/21)
[2019-09-20] MEDS: ASPIRIN 81 MG CHEWABLE TABLETS PO SCH (13:05)
[2019-09-20] MEDS: OCTREOTIDE ACETATE 200 MCG, OCTREOTIDE ACETATE 1,000 MCG in DEXTROSE 5%-WATER - 496 ML IVPB SCH (15:54)
[2019-09-20] MEDS ORDERED: PT OWN MED DRAWER 7, Y5N ONE (20:59)
[2019-09-20] MEDS: MELATONIN 1 MG TABLET PO SCH (21:18)
[2019-09-20] MEDS: ATORVASTATIN CA 40 MG TABLET (FP) PO SCH (21:18)
--- NOTE | 2019-09-20 21:27 | PN.GI ---
GI Progress Note Subjective: GI NOte: Dr. Sue's and Dr Cabrera's coverage is appreciated, Bleeding appears to have subsided - Objective Vital Signs: Vital Signs Temperature 98.3 F 09/20/19 18:00 Pulse Rate 63 09/20/19 18:00 Respiratory Rate 20 09/20/19 18:00 Blood Pressure 95/57 L 09/20/19 18:00 O2 Sat by Pulse Oximetry (%) 100 09/20/19 09:00 Laboratory Tests 09/17/19 09/18/19 09/19/19 15:38 05:40 05:35 Hgb 13.4 11.0 L 10.7 L 09/20/19 08:05 Hgb 10.9 L Laboratory Tests 10/16/17 10/16/17 06:00 06:00 Iron Saturation 24 Ferritin 233.964 Tumor Marker AFP 3.4 SUDHA Screen Negative Hep A IgM Ab Confirm Negative Hepatitis A Ab Total Positive H Hep Bs Antigen Negative Hep Bs Antibody Non reactive Hep B Core Total Ab Negative Hepatitis C Antibody <0.1 Constitutional: Calm ...Auscultate: Yes: Normoactive Bowel Sounds ...Palpate: Yes: Soft, Other (nontender) Labs: CBC, BMP 09/20/19 08:05 09/20/19 08:05 INR, PTT INR 1.02 (0.83-1.09) 09/17/19 15:38 Assessment/Plan Assessment: -- GI bleeding that appears to have subsided. UGI source is the most likely origin given melena and coffee ground emesis. Potential etiologies include ulcers, erosive gastritis, vascular ectasias and [place] erosions. portal gastropathy or varices. -- Alcoholic hepatitis with fatty liver -- Personal h/o colon polyps, Had a colonoscopy earlier this ear at [place] and tells me that no polyps were found -- Gallstones appear to be silent Plan: -- I have advised an EGD and informed Franko of the potential for such complications as perforation and hemorrhage. He has granted an informed consent. I discussed the case with Dr Barnes earlier and have scheduled Franko for an EGD tomorrow. Aspirin was restarted but am withholding Plavix until the EGD is done -- Continue the PPI and Octreotide -- I advised Franko to abstain from alcohol Problem List - Problems (1) Acute kidney injury superimposed on CKD Code(s): N17.9 - ACUTE KIDNEY FAILURE, UNSPECIFIED; N18.9 - CHRONIC KIDNEY DISEASE, UNSPECIFIED (2) Acute on chronic systolic and diastolic heart failure, NYHA class 3 Code(s): I50.43 - ACUTE ON CHRONIC COMBINED SYSTOLIC AND DIASTOLIC HRT FAIL (3) Anemia due to GI blood loss Code(s): D50.0 - IRON DEFICIENCY ANEMIA SECONDARY TO BLOOD LOSS (CHRONIC) (4) Colon polyps Code(s): K63.5 - POLYP OF COLON (5) GI bleed Code(s): K92.2 - GASTROINTESTINAL HEMORRHAGE, UNSPECIFIED Qualifiers: GI bleed type/associated pathology: melena Qualified Code(s): K92.1 - Melena (6) Gallstones Code(s): K80.20 - CALCULUS OF GALLBLADDER W/O CHOLECYSTITIS W/O OBSTRUCTION (7) Hx of CABG Code(s): Z95.1 - PRESENCE OF AORTOCORONARY BYPASS GRAFT (8) Melena Code(s): K92.1 - MELENA (9) S/P coronary artery stent placement Code(s): Z95.5 - PRESENCE OF CORONARY ANGIOPLASTY IMPLANT AND GRAFT (10) Transaminitis Code(s): R74.0 - NONSPEC ELEV OF LEVELS OF TRANSAMNS & LACTIC ACID DEHYDRGNSE
[2019-09-21 06:38] LABS: BASO % 0.4 % (0-2.0); EOS % 1.1 % (0-4.5); HEMATOCRIT 33.8 % (35.4-49); HEMOGLOBIN 10.9 GM/dL (11.7-16.9); LYMPH % 28.5 % (8-40); MCH 30.7 pg (25.7-33.7); MCHC 32.2 g/dl (32.0-35.9); MEAN CELL VOLUME 95.3 fl (80-96); MONO % 11.9 % (3.8-10.2); NEUT % 58.1 % (42.8-82.8); PLATELET COUNT 146 K/MM3 (134-434); RBC 3.54 M/mm3 (4.00-5.60); RDW 16.7 % (11.9-15.9); WHITE BLOOD COUNT 4.5 K/mm3 (4.0-10.0)
[2019-09-21 07:22] LABS: ALBUMIN 3.1 g/dl (3.4-5.0); BILIRUBIN,TOTAL 0.8 mg/dL (0.2-1); BLOOD UREA NITROGEN 11.2 mg/dL (7-18); CALCIUM 8.5 mg/dL (8.5-10.1); CREATININE 1.2 mg/dL (0.55-1.3); MAGNESIUM 1.8 mg/dL (1.8-2.4); PHOSPHOROUS 2.2 mg/dL (2.5-4.9); POTASSIUM 4.4 mmol/L (3.5-5.1); TOT PROT 5.8 g/dl (6.4-8.2)
--- NOTE | 2019-09-21 07:55 | PN ---
Teaching Attending Note Name of Resident: Yodit Mcintyre ATTENDING PHYSICIAN STATEMENT I saw and evaluated the patient. I reviewed the resident's note and discussed the case with the resident. I agree with the resident's findings and plan as documented. SUBJECTIVE: No episode of GI bleed OBJECTIVE: Vital Signs Temperature 98.4 F 09/21/19 06:00 Pulse Rate 64 09/21/19 06:00 Respiratory Rate 20 09/21/19 06:00 Blood Pressure 99/60 09/21/19 06:00 O2 Sat by Pulse Oximetry (%) 99 09/20/19 21:00 General: Elderly man, comfortable, not in distress HEENT; mucous membranes moist, no anemia, no jaundice, PERRLA, no nystagmus Neck: No JVD, supple, no bruit, thyroid palpably normal, normal carotid pulsations. Chest: Nontender, clear to auscultation bilaterally/bilateral wheezing/ bilateral basal rales. CVS: S1-S2 regular/irregular no murmur/gallop/rub Abdomen: Nondistended, soft, bowel sounds present. Extremities: No edema., No calf tenderness, pulses present DOLPHIN RESEARCHER: Minimal tremor AO X3 , no gross motor sensory deficit CBC, BMP 09/21/19 05:55 09/21/19 05:55 Active Medications Acetaminophen (Tylenol -) 650 mg PO Q6H PRN PRN Reason: Fever Or Pain Last Admin: 09/18/19 21:13 Dose: 650 mg Aspirin (Asa -) 81 mg PO DAILY [facility] Last Admin: 09/20/19 13:05 Dose: 81 mg Atorvastatin Calcium (Lipitor -) 40 mg PO HS [facility] Last Admin: 09/20/19 21:18 Dose: 40 mg Folic Acid (Folic Acid -) 1 mg PO DAILY [facility] Last Admin: 09/20/19 09:47 Dose: 1 mg Octreotide Acetate 200 mcg/Octreotide Acetate 1,000 mcg/Dextrose 500 mls @ 20.833 mls/hr IVPB ASDIR [facility] Last Admin: 09/20/19 15:54 Dose: 20.833 mls/hr Isosorbide Mononitrate (Imdur -) 30 mg PO DAILY [facility] Last Admin: 09/20/19 09:47 Dose: 30 mg Melatonin (Melatonin) 3 mg PO [facility] Last Admin: 09/20/19 21:18 Dose: 3 mg Metoprolol Succinate (Toprol Xl -) 12.5 mg PO DAILY [facility] Last Admin: 09/20/19 10:22 Dose: Not Given Multivitamins/Minerals/Vitamin C (Tab-A-Vit -) 1 tab PO DAILY [facility] Last Admin: 09/20/19 09:47 Dose: 1 tab Pantoprazole Sodium (Protonix Iv) 40 mg IVPUSH BID [facility] Last Admin: 09/20/19 21:18 Dose: 40 mg Thiamine HCl (Vitamin B1 -) 100 mg PO DAILY [facility] Last Admin: 09/20/19 09:47 Dose: 100 mg ASSESSMENT AND PLAN: 69 years old man with multiple medical comorbidities including CAD status post CABG, ischemic cardiomyopathy, heart failure with reduced ejection fraction, hypertension patient is on dual antiplatelet therapy , presents with melena with drop in H&H, evaluated by GI and cardiology currently of antiplatelet therapy, H&H is stable, no new episode of melena patient is scheduled for EGD today, evaluated by GI cleared to resume aspirin with PPI after EGD. Plan: Continue current management Problem List - Problems (1) Upper GI bleed Assessment/Plan: Continue octreotide and PPI, off dual antiplatelet therapy, will follow EGD, cleared by cardiology for the procedure. Code(s): K92.2 - GASTROINTESTINAL HEMORRHAGE, UNSPECIFIED (2) Heart failure with reduced ejection fraction, NYHA class II Assessment/Plan: Compensated due to his ischemic cardiomyopathy, needs evaluation AICD placement for primary prevention ventricular arrhythmia. Code(s): I50.20 - UNSPECIFIED SYSTOLIC (CONGESTIVE) HEART FAILURE (3) Acute kidney injury superimposed on CKD Assessment/Plan: Improving on IV hydration follow BMP Code(s): N17.9 - ACUTE KIDNEY FAILURE, UNSPECIFIED; N18.9 - CHRONIC KIDNEY DISEASE, UNSPECIFIED (4) CAD (coronary artery disease) Assessment/Plan: Continue current management no acute ST-T changes, no elevated troponin or chest pain aspirin can be resumed with PPI after EGD rest continue current management Code(s): I25.10 - ATHSCL HEART DISEASE OF [place] CORONARY ARTERY W/O ANG PCTRS Qualifiers: Coronary Disease-Associated Artery/Lesion type: unspecified vessel or lesion type [place] vs. transplanted heart: [place] heart Associated angina: without angina Qualified Code(s): I25.10 - Atherosclerotic heart disease of [place] coronary artery without angina pectoris (5) Acute on chronic systolic and diastolic heart failure, NYHA class 3 Assessment/Plan: Compensated continue current management, needs optimization of the therapy. Including evaluation for AICD placement. Code(s): I50.43 - ACUTE ON CHRONIC COMBINED SYSTOLIC AND DIASTOLIC HRT FAIL (6) HTN (hypertension) Assessment/Plan: Well-controlled continue current management Problems reviewed: Yes Code(s): I10 - ESSENTIAL (PRIMARY) HYPERTENSION Qualifiers: Hypertension type: essential hypertension Qualified Code(s): I10 - Essential (primary) hypertension (7) Alcohol addiction Assessment/Plan: We will continue alcohol rehab program continue time observe for DTs. Problems reviewed: Yes Code(s): F10.20 - ALCOHOL DEPENDENCE, UNCOMPLICATED Qualifiers: Substance use status: uncomplicated Qualified Code(s): F10.20 - Alcohol dependence, uncomplicated
[2019-09-21] MEDS: MULTIVITAMINS (DAILY MVI) TABLET (FP) PO SCH (09:19)
[2019-09-21] MEDS: THIAMINE HCL 100 MG TABLET (FP) PO SCH (09:19)
[2019-09-21] MEDS: FOLIC ACID 1 MG TABLET (FP) PO SCH (09:19)
[2019-09-21] MEDS: PANTOPRAZOLE SODIUM 40 MG VIAL IVPUSH SCH (09:19)
[2019-09-21] MEDS: ASPIRIN 81 MG CHEWABLE TABLETS PO SCH (09:19)
[2019-09-21] MEDS: ISOSORBIDE MONONITRATE 30 MG TAB.SR.24H (FP) PO SCH (09:19)
[2019-09-21] MEDS: metoPROLOL SUCCINATE 25 MG TAB.SR.24H (FP) PO SCH (09:20)
--- NOTE | 2019-09-21 11:36 | PN ---
Progress Note (short form) - Note Progress Note: Hospitalist Medicine Has been ambulating. No more episodes of blood in stool. s/p EGD today; with large hiatal hernia, GEJ ulcer- non-bleeding. Vitals 09/21/19 09/21/19 06:00 10:00 Temperature 98.4 F Pulse Rate 64 Respiratory 20 Rate Blood Pressure 99/60 O2 Sat by Pulse 99 Oximetry (%) Physical Exam general: resting in bed, in NAD HEENT: NCAT, +?cataracts neck: supple. no JVD cardio: S1, S2, RRR. no r/g. +systolic murmur pulm: CTA b/l abdomen: soft, nontender,nondistended LE: 2+ pulses, no edema Laboratory Tests 09/21/19 09/21/19 09/21/19 05:55 05:55 05:55 WBC 4.5 Hgb 10.9 L Hct 33.8 L Plt Count 146 Sodium 137 Potassium 4.4 Chloride 106 Carbon Dioxide 24 Anion Gap 6 L BUN 11.2 Creatinine 1.2 Random Glucose 107 H Calcium 8.5 Phosphorus 2.2 L Magnesium 1.8 Iron 29 L TIBC 254 Iron Saturation 11 L Unsaturated IBC 225 Ferritin 76.6 Tumor Marker AFP Tiss Transglutamin IgG Tiss Transglutamin IgA 09/21/19 05:55 WBC Hgb Hct Plt Count Sodium Potassium Chloride Carbon Dioxide Anion Gap BUN Creatinine Random Glucose Calcium Phosphorus Magnesium Iron TIBC Iron Saturation Unsaturated IBC Ferritin Tumor Marker AFP Pending Tiss Transglutamin IgG Pending Tiss Transglutamin IgA Pending Imaging 09/17 EKG: sinus tach with frequent PVCs, rate 102bpm, qtc 471ms. TWI lateral leads Assessment/Plan 68 M h/o CAD s/p CABG in 2003 w/ restenosis requiring 3 stents in 2019, HFrEF with EF of 15%, HTN, HLD, Etoh abuse, presents with epigastric pain and episodes of vomiting dark contents and having BM with dark stools, stool guiac+ . #UGIB -in the past EGD showed gastritis likely EtOH- induced but had food contents so was non-diagnostic -c/w protonix 40mg PO BID on d/c -s/p EGD, with nonbleeding GEJ ulcer likely source. -cardio d/w home cardio, recent stent - OK to continue asa. plavix restarted by GI -GI: Dr. Spangler #CAD w/ hx multiple stents, last 09/2018 -OK to restart on asa, cardio d/w GI -plavix has been restarted by GI #HFrEF -Last EF ~15-20% likely multifactorial ischemic and Etoh induced -c/w metoprolol, imdur -hold Spironolactone and Lasix in view of OLIMPIA (likely prerenal) patient appears clinically dry -Cardio: Dr. Barnes #HTN-controlled -c/w metoprolol #HLD -c/w atorvastatin #Thrombocytopenia -possible this is reactive -however f/u hep C testing -HIV (-) #EtOH dependence -CIWA 0 -Thiamine, FA, MV -states he will abstain #F/E/N: avoid IVF as w/ poor EF continue to follow lytes na controlled diet #PPX DVT: SCD's OK to c/w asa for now, cardio d/w GI #Dispo monitoring on tele anticipate d/c 24 hrs, cleared by GI, needs cardio clearance prior to d/c.
[2019-09-21] MEDS ORDERED: ETOMIDATE 20 MG/10 ML AMPUL IVPUSH ONE (11:40)
--- NOTE | 2019-09-21 12:06 | PN ---
Progress Note (short form) - Note Progress Note: GI Procedure NOte: Please see EGD report. Has a large hiatal hernia with brisk reflux causing a medium sized nonbleeding GE junction ulcer. This was the likely recent source of hematemesis and melena. Will resume Plavix. Continue PPI BID. Problem List - Problems (1) Acute kidney injury superimposed on CKD Code(s): N17.9 - ACUTE KIDNEY FAILURE, UNSPECIFIED; N18.9 - CHRONIC KIDNEY DISEASE, UNSPECIFIED (2) Acute on chronic systolic and diastolic heart failure, NYHA class 3 Code(s): I50.43 - ACUTE ON CHRONIC COMBINED SYSTOLIC AND DIASTOLIC HRT FAIL (3) Anemia due to GI blood loss Code(s): D50.0 - IRON DEFICIENCY ANEMIA SECONDARY TO BLOOD LOSS (CHRONIC) (4) Colon polyps Code(s): K63.5 - POLYP OF COLON (5) GI bleed Code(s): K92.2 - GASTROINTESTINAL HEMORRHAGE, UNSPECIFIED Qualifiers: GI bleed type/associated pathology: melena Qualified Code(s): K92.1 - Melena (6) Gallstones Code(s): K80.20 - CALCULUS OF GALLBLADDER W/O CHOLECYSTITIS W/O OBSTRUCTION (7) Hx of CABG Code(s): Z95.1 - PRESENCE OF AORTOCORONARY BYPASS GRAFT (8) Melena Code(s): K92.1 - MELENA (9) S/P coronary artery stent placement Code(s): Z95.5 - PRESENCE OF CORONARY ANGIOPLASTY IMPLANT AND GRAFT (10) Transaminitis Code(s): R74.0 - NONSPEC ELEV OF LEVELS OF TRANSAMNS & LACTIC ACID DEHYDRGNSE
[2019-09-21] MEDS: MAG HYDROX/AL HYDROX/SIMETH 30 ML UNIT-DOSE CUP PO SCH ×3 (12:54→23:48)
[2019-09-21 15:06] LABS: RETICULOCYTES 2.65 % (0.5-1.5)
[2019-09-21] MEDS: PANTOPRAZOLE 40 MG TABLET (FP) PO SCH (21:13)
[2019-09-21] MEDS: MELATONIN 1 MG TABLET PO SCH (21:13)
[2019-09-21] MEDS: ATORVASTATIN CA 40 MG TABLET (FP) PO SCH (21:13)
--- NOTE | 2019-09-22 01:46 | PN ---
Progress Note, Physician Chief Complaint: Pt A&OX3; returned from EGD; no chest pain or dyspnea. History of Present Illness: 69-year-old black male with history of dilated ischemic cardiomyopathy (2018 ECHO: severely reduced LVEF), CAD s/p drug-eluting stents (proximal LAD 2017; mid Cx 09/2018; RCA 11/2018: on ASA 81 mg/d and clopidogrel 75 mg/d since then)), hyperlipidemia, acute/chronic alcoholism, s/p bioprosthetic mitral valve replacement ?2002), alcoholism, PUD/esophagitis with upper GI bleed requiring transfusion in the past, last endoscopy in January 2019 at [facility] noting esophagitis, anemia, (was tranferred there from [facility] when severely anemic and considered too hehodynamically unstable to have procedure done here), started on pantoprazole at that time with plans to repeat endoscopy in 2 months but patient never followed up, presents now with 3 to 4 days of worsening abdominal complaints initially with, black/green diarrhea followed by diffuse abdominal pain and vomiting. Presentation reportedly similar to past PUD flare, last alcohol intake was yesterday (1/2 pint gin daily for past several weeks), of note: pt ran out of his PPI on 09/07/19. He was to see Dr. Quiroz, GI, this week, but came to hospital instead. . Yes: CAD (s/p CABG; s/p DEStent proximal LAD 07/2018; mid Cx 09/2018, cor angiogram 11/2018 noted RCA 50/5stenosis proximal, 70% mid, 80% distal: planned for future evaluation and possible stent); and biologic valve replacement at [facility] 2002. No infarctions.), Hyperlipidemia Gastrointestinal: Yes: Other (multiple ?colon polyps) Psych: Yes: (alcohol) Rheumatology: Yes: Gout GI: Dr. Calin Quiroz - Current Medication List Current Medications: Active Medications Acetaminophen (Tylenol -) 650 mg PO Q6H PRN PRN Reason: Fever Or Pain Last Admin: 09/18/19 21:13 Dose: 650 mg Al Hydroxide/Mg Hydroxide (Mylanta Oral Suspension -) 30 ml PO Q6H ELLIE Last Admin: 09/21/19 23:48 Dose: 30 ml Aspirin (Asa -) 81 mg PO DAILY ELLIE Last Admin: 09/21/19 09:19 Dose: 81 mg Atorvastatin Calcium (Lipitor -) 40 mg PO HS [facility] Last Admin: 09/21/19 21:13 Dose: 40 mg Clopidogrel Bisulfate (Plavix -) 75 mg PO DAILY [facility] Folic Acid (Folic Acid -) 1 mg PO DAILY [facility] Last Admin: 09/21/19 09:19 Dose: 1 mg Isosorbide Mononitrate (Imdur -) 30 mg PO DAILY [facility] Last Admin: 09/21/19 09:19 Dose: 30 mg Melatonin (Melatonin) 3 mg PO HS [facility] Last Admin: 09/21/19 21:13 Dose: 3 mg Metoprolol Succinate (Toprol Xl -) 12.5 mg PO DAILY [facility] Last Admin: 09/21/19 09:20 Dose: 12.5 mg Multivitamins/Minerals/Vitamin C (Tab-A-Vit -) 1 tab PO DAILY [facility] Last Admin: 09/21/19 09:19 Dose: 1 tab Pantoprazole Sodium (Protonix -) 40 mg PO BID [facility] Last Admin: 09/21/19 21:13 Dose: 40 mg Thiamine HCl (Vitamin B1 -) 100 mg PO DAILY [facility] Last Admin: 09/21/19 09:19 Dose: 100 mg - Objective Vital Signs: Vital Signs Temperature 97.5 F L 09/21/19 21:55 Pulse Rate 83 09/21/19 21:55 Respiratory Rate 18 09/21/19 21:55 Blood Pressure 101/63 09/21/19 21:55 O2 Sat by Pulse Oximetry (%) 99 09/21/19 21:00 Constitutional: Yes: Calm Eyes: Yes: WNL HENT: Yes: WNL Neck: Yes: WNL Cardiovascular: Yes: Regular Rate and Rhythm Respiratory: Yes: WNL Gastrointestinal: Yes: Soft ...Rectal Exam: Yes: Deferred Genitourinary: No: Anuria Breast(s): Yes: WNL Musculoskeletal: Yes: WNL Extremities: Yes: WNL Edema: No Peripheral Pulses WNL: Yes Integumentary: Yes: WNL Neurological: Yes: WNL Psychiatric: Yes: Alert, Oriented Labs: CBC, BMP 09/21/19 05:55 09/21/19 05:55 INR, PTT INR 1.02 (0.83-1.09) 09/17/19 15:38 - ....Imaging Other: Image Reviewed (telemetry: NSR) Problem List - Problems (1) Esophagitis Assessment/Plan: Disussed pt with , post-EGD: large hiatal hernia with brisk reflux causing a medium sized nonbleeding GE junction ulcer. This was the likely recent source of hematemesis and melena. Will resume clopidogrel immediately. Continue PPI bid. Code(s): K20.9 - ESOPHAGITIS, UNSPECIFIED (2) Acute on chronic systolic and diastolic heart failure, NYHA class 3 Assessment/Plan: severely reduced LVEF. On metoprolol ER. Restart lisinopril and sprionolactone) as tolerated by BP, BUN/Cr and electrolytes. Code(s): I50.43 - ACUTE ON CHRONIC COMBINED SYSTOLIC AND DIASTOLIC HRT FAIL (3) Alcohol addiction Assessment/Plan: detox protocol. Code(s): F10.20 - ALCOHOL DEPENDENCE, UNCOMPLICATED Qualifiers: Substance use status: uncomplicated Qualified Code(s): F10.20 - Alcohol dependence, uncomplicated (4) Anemia Code(s): D64.9 - ANEMIA, UNSPECIFIED Qualifiers: Anemia type: unspecified type Qualified Code(s): D64.9 - Anemia, unspecified (5) CAD (coronary artery disease) Assessment/Plan: S/p DEStents 08/06 (prox LAD) and 10/07 (Cx). On ASA; clopidogrel restarted. Aggressive contol of lipids: increase atorvastatin to 80 mg daily (LFTs WNL), and keep LDL well below 70 mg/dL. Code(s): I25.10 - ATHSCL HEART DISEASE OF [place] CORONARY ARTERY W/O ANG PCTRS Qualifiers: Coronary Disease-Associated Artery/Lesion type: unspecified vessel or lesion type [place] vs. transplanted heart: [place] heart Associated angina: without angina Qualified Code(s): I25.10 - Atherosclerotic heart disease of [place] coronary artery without angina pectoris (6) Hyperlipidemia Assessment/Plan: atorvastatin to be increased (LDL >70). Code(s): E78.5 - HYPERLIPIDEMIA, UNSPECIFIED (7) Elevated LFTs Assessment/Plan: now WNL Code(s): R94.5 - ABNORMAL RESULTS OF LIVER FUNCTION STUDIES
[2019-09-22] MEDS: MAG HYDROX/AL HYDROX/SIMETH 30 ML UNIT-DOSE CUP PO SCH ×2 (06:19→13:08)
[2019-09-22] MEDS ORDERED: ATORVASTATIN CA 80 MG TABLET (FP) PO ONE (07:31)
[2019-09-22] MEDS ORDERED: NAPH,MB-DB/K PH,MBDB POWDER PACKET PO ONE (07:38)
[2019-09-22 09:06] VITALS: BP 105/55; PULSE 67; TEMP 97.8
[2019-09-22] MEDS ORDERED: CLOPIDOGREL BISULFATE 75 MG TABLET (FP) PO SCH (10:00)
[2019-09-22] MEDS: ISOSORBIDE MONONITRATE 30 MG TAB.SR.24H (FP) PO SCH (10:42)
[2019-09-22] MEDS: FOLIC ACID 1 MG TABLET (FP) PO SCH (10:42)
[2019-09-22] MEDS: ASPIRIN 81 MG CHEWABLE TABLETS PO SCH (10:42)
[2019-09-22] MEDS: THIAMINE HCL 100 MG TABLET (FP) PO SCH (10:42)
[2019-09-22] MEDS: metoPROLOL SUCCINATE 25 MG TAB.SR.24H (FP) PO SCH (10:42)
[2019-09-22] MEDS: MULTIVITAMINS (DAILY MVI) TABLET (FP) PO SCH (10:42)
[2019-09-22] MEDS: PANTOPRAZOLE 40 MG TABLET (FP) PO SCH (10:42)
[2019-09-22 12:06] LABS: TRANSGLUTAMINASE IGA < 2 U/mL (0-3); TRANSGLUTAMINASE IGG < 2 U/mL (0-5)
--- NOTE | 2019-09-22 13:02 | DS ---
Physical Exam: Hospital course: 68 M h/o CAD s/p CABG in 2003 w/ restenosis requiring 3 stents in 2019, HFrEF with EF of 15%, HTN, HLD, Etoh abuse, presents with epigastric pain and episodes of vomiting dark contents and having BM with dark stools, stool guiac+ . Patient was monitored and evaluated by Cardiology and GI services where his CHF meds were optimized and patient underwent EGD to rule out active UGIB. Patient was found to have a non-bleeding GEJ ulcer, and was seen as likely source of bleeding. Patient was advised to be on PPI BID and to resume DAPT as per GI and Cardiology. Patient ready for discharge today. will accompany patient at discharge. Patient was recommended to cont. PPI BID and follow up in GI clinic, and for repeat EGD in 3 months to assess resolution of ulcer. Vital Signs Period Temp Pulse Resp BP Sys/Reyes Pulse Ox Last 24 Hr 97.5 F-98.1 F 67-113 16-18 99-105/55-64 99-99 PHYSICAL EXAM GA calm, AAox3, ambulating HEENT NC/AT, b/l cataracts, neck supple Chest CTAB, no crackles/wheezing CVS S1, S2+, RRR Abd Soft, NT, ND Ext No LE edema, ambulating LABS Laboratory Results - last 24 hr 09/21/19 09/21/19 05:55 05:55 Retic Count 2.65 H Tumor Marker AFP 0.9 Tiss Transglutamin IgG < 2 Tiss Transglutamin IgA < 2 Vital Signs - 24 hr 09/21/19 09/21/19 09/21/19 14:00 21:00 21:55 Temperature 98.1 F 97.5 F L Pulse Rate 113 H 83 Respiratory 18 18 Rate Blood Pressure 99/64 101/63 O2 Sat by Pulse 99 Oximetry (%) 09/22/19 09/22/19 09:06 10:00 Temperature 97.8 F Pulse Rate 67 Respiratory 16 Rate Blood Pressure 105/55 L O2 Sat by Pulse 99 Oximetry (%) Laboratory Tests 09/17/19 09/17/19 09/17/19 05:40 15:37 15:38 WBC RBC Hgb Hct MCV MCH MCHC RDW Plt Count MPV Absolute Neuts (auto) Neutrophils % Lymphocytes % Monocytes % Eosinophils % Basophils % Nucleated RBC % Platelet Estimate Platelet Comment Retic Count PT with INR INR PTT (Actin FS) Sodium Potassium Chloride Carbon Dioxide Anion Gap BUN Creatinine Est GFR (CKD-EPI)AfAm Est GFR (CKD-EPI)NonAf Random Glucose Calcium Phosphorus Magnesium Iron TIBC Iron Saturation Unsaturated IBC Ferritin Total Bilirubin AST ALT Alkaline Phosphatase Creatine Kinase 389 H Creatine Kinase Index 0.5 CK-MB (CK-2) 2.1 Troponin I < 0.02 Total Protein Albumin Triglycerides Cholesterol Total LDL Cholesterol HDL Cholesterol Lipase Tumor Marker AFP Urine Color Urine Appearance Urine pH Ur Specific Neely Urine Protein Urine Glucose (UA) Urine Ketones Urine Blood Urine Nitrite Urine Bilirubin Urine Urobilinogen Ur Leukocyte Esterase Urine WBC (Auto) Urine RBC (Auto) Urine Casts (Auto) U Epithel Cells (Auto) Urine Bacteria (Auto) Stool Occult Blood Positive Tiss Transglutamin IgG Tiss Transglutamin IgA H. pylori IgG Antibody H. pylori IgA Antibody H. pylori IgM Antibody Hep C Ab Diagnostic HIV 1&2 Antibody Screen HIV P24 Antigen Blood Type A POSITIVE Antibody Screen Negative 09/17/19 09/17/19 09/17/19 15:38 15:38 15:38 WBC 9.5 RBC 4.35 Hgb 13.4 Hct 40.4 D MCV 92.9 MCH 30.7 D MCHC 33.1 RDW 17.4 H Plt Count 168 D MPV 10.0 D Absolute Neuts (auto) 7.0 Neutrophils % 73.7 Lymphocytes % 18.3 Monocytes % 7.3 Eosinophils % 0.0 D Basophils % 0.7 D Nucleated RBC % 0 Platelet Estimate Adequate Platelet Comment No clumping noted Retic Count PT with INR 12.00 INR 1.02 PTT (Actin FS) 29.5 Sodium 132 L Potassium 5.9 H Chloride 92 L Carbon Dioxide 30 Anion Gap 9 BUN 50.8 H Creatinine 1.8 H Est GFR (CKD-EPI)AfAm 43.23 Est GFR (CKD-EPI)NonAf 37.30 Random Glucose 121 H Calcium 9.4 Phosphorus Magnesium Iron TIBC Iron Saturation Unsaturated IBC Ferritin Total Bilirubin 1.0 AST 49 H ALT 20 Alkaline Phosphatase 79 Creatine Kinase Creatine Kinase Index CK-MB (CK-2) Troponin I Total Protein 8.1 Albumin 4.3 Triglycerides Cholesterol Total LDL Cholesterol HDL Cholesterol Lipase 174 Tumor Marker AFP Urine Color Urine Appearance Urine pH Ur Specific Neely Urine Protein Urine Glucose (UA) Urine Ketones Urine Blood Urine Nitrite Urine Bilirubin Urine Urobilinogen Ur Leukocyte Esterase Urine WBC (Auto) Urine RBC (Auto) Urine Casts (Auto) U Epithel Cells (Auto) Urine Bacteria (Auto) Stool Occult Blood Tiss Transglutamin IgG Tiss Transglutamin IgA H. pylori IgG Antibody H. pylori IgA Antibody H. pylori IgM Antibody Hep C Ab Diagnostic HIV 1&2 Antibody Screen HIV P24 Antigen Blood Type Antibody Screen 09/17/19 09/17/19 09/17/19 15:38 18:12 18:12 WBC RBC Hgb Hct MCV MCH MCHC RDW Plt Count MPV Absolute Neuts (auto) Neutrophils % Lymphocytes % Monocytes % Eosinophils % Basophils % Nucleated RBC % Platelet Estimate Platelet Comment Retic Count PT with INR INR PTT (Actin FS) Sodium Potassium 4.5 Chloride Carbon Dioxide Anion Gap BUN Creatinine Est GFR (CKD-EPI)AfAm Est GFR (CKD-EPI)NonAf Random Glucose Calcium Phosphorus Magnesium Iron TIBC Iron Saturation Unsaturated IBC Ferritin Total Bilirubin AST ALT Alkaline Phosphatase Creatine Kinase Creatine Kinase Index CK-MB (CK-2) Troponin I Total Protein Albumin Triglycerides Cholesterol Total LDL Cholesterol HDL Cholesterol Lipase Tumor Marker AFP Urine Color Urine Appearance Urine pH Ur Specific Neely Urine Protein Urine Glucose (UA) Urine Ketones Urine Blood Urine Nitrite Urine Bilirubin Urine Urobilinogen Ur Leukocyte Esterase Urine WBC (Auto) Urine RBC (Auto) Urine Casts (Auto) U Epithel Cells (Auto) Urine Bacteria (Auto) Stool Occult Blood Tiss Transglutamin IgG Tiss Transglutamin IgA H. pylori IgG Antibody H. pylori IgA Antibody H. pylori IgM Antibody Hep C Ab Diagnostic HIV 1&2 Antibody Screen HIV P24 Antigen Blood Type Cancelled A POSITIVE Antibody Screen Cancelled Negative 09/17/19 09/18/19 09/18/19 18:55 05:40 05:40 WBC 6.6 RBC 3.58 L Hgb 11.0 L Hct 33.6 L D MCV 93.8 MCH 30.6 MCHC 32.7 RDW 16.7 H Plt Count 125 L D MPV 10.1 Absolute Neuts (auto) 4.2 Neutrophils % 64.5 Lymphocytes % 25.2 D Monocytes % 9.7 Eosinophils % 0.5 D Basophils % 0.1 Nucleated RBC % 0 Platelet Estimate Platelet Comment Retic Count PT with INR INR PTT (Actin FS) Sodium 136 Potassium 3.7 Chloride 102 Carbon Dioxide 25 Anion Gap 9 BUN 32.0 H Creatinine 1.4 H Est GFR (CKD-EPI)AfAm 58.58 Est GFR (CKD-EPI)NonAf 50.54 Random Glucose 100 Calcium 8.3 L Phosphorus Magnesium Iron TIBC Iron Saturation Unsaturated IBC Ferritin Total Bilirubin AST ALT Alkaline Phosphatase Creatine Kinase Creatine Kinase Index CK-MB (CK-2) Troponin I Total Protein Albumin Triglycerides Cholesterol Total LDL Cholesterol HDL Cholesterol Lipase Tumor Marker AFP Urine Color Yellow Urine Appearance Clear Urine pH >= 9.0 H D Ur Specific Neely 1.016 Urine Protein 1+ H Urine Glucose (UA) Negative Urine Ketones Trace H Urine Blood Negative Urine Nitrite Negative Urine Bilirubin Negative Urine Urobilinogen 1.0 Ur Leukocyte Esterase Negative Urine WBC (Auto) 0 Urine RBC (Auto) 0 Urine Casts (Auto) 0 U Epithel Cells (Auto) 0.3 Urine Bacteria (Auto) 0.5 Stool Occult Blood Tiss Transglutamin IgG Tiss Transglutamin IgA H. pylori IgG Antibody H. pylori IgA Antibody H. pylori IgM Antibody Hep C Ab Diagnostic HIV 1&2 Antibody Screen HIV P24 Antigen Blood Type Antibody Screen 09/18/19 09/18/19 09/18/19 15:20 15:20 15:20 WBC RBC Hgb Hct MCV MCH MCHC RDW Plt Count MPV Absolute Neuts (auto) Neutrophils % Lymphocytes % Monocytes % Eosinophils % Basophils % Nucleated RBC % Platelet Estimate Platelet Comment Retic Count PT with INR INR PTT (Actin FS) Sodium Potassium Chloride Carbon Dioxide Anion Gap BUN Creatinine Est GFR (CKD-EPI)AfAm Est GFR (CKD-EPI)NonAf Random Glucose Calcium Phosphorus Magnesium Iron TIBC Iron Saturation Unsaturated IBC Ferritin Total Bilirubin AST ALT Alkaline Phosphatase Creatine Kinase Creatine Kinase Index CK-MB (CK-2) Troponin I Total Protein Albumin Triglycerides Cholesterol Total LDL Cholesterol HDL Cholesterol Lipase Tumor Marker AFP Urine Color Urine Appearance Urine pH Ur Specific Ne[place] Urine Protein Urine Glucose (UA) Urine Ketones Urine Blood Urine Nitrite Urine Bilirubin Urine Urobilinogen Ur Leukocyte Esterase Urine WBC (Auto) Urine RBC (Auto) Urine Casts (Auto) U Epithel Cells (Auto) Urine Bacteria (Auto) Stool Occult Blood Tiss Transglutamin IgG Tiss Transglutamin IgA H. pylori IgG Antibody 0.22 H. pylori IgA Antibody <9.0 H. pylori IgM Antibody <9.0 Hep C Ab Diagnostic 0.2 HIV 1&2 Antibody Screen Negative HIV P24 Antigen Negative Blood Type Antibody Screen 09/19/19 09/19/19 09/20/19 05:35 05:35 08:05 WBC 5.0 4.3 RBC 3.48 L 3.55 L Hgb 10.7 L 10.9 L Hct 32.9 L 34.1 L MCV 94.5 96.0 MCH 30.8 30.7 MCHC 32.6 32.0 RDW 16.2 H 16.7 H Plt Count 127 L 139 MPV 10.1 10.2 Absolute Neuts (auto) 2.9 2.5 Neutrophils % 58.1 58.7 Lymphocytes % 30.1 26.7 Monocytes % 10.8 H 12.9 H Eosinophils % 0.8 1.3 Basophils % 0.2 0.4 Nucleated RBC % 0 0 Platelet Estimate Platelet Comment Retic Count PT with INR INR PTT (Actin FS) Sodium 134 L Potassium 3.8 Chloride 101 Carbon Dioxide 26 Anion Gap 7 L BUN 20.0 H Creatinine 1.3 Est GFR (CKD-EPI)AfAm 64.07 Est GFR (CKD-EPI)NonAf 55.28 Random Glucose 120 H Calcium 8.1 L Phosphorus 2.4 L Magnesium 1.6 L Iron TIBC Iron Saturation Unsaturated IBC Ferritin Total Bilirubin AST ALT Alkaline Phosphatase Creatine Kinase Creatine Kinase Index CK-MB (CK-2) Troponin I Total Protein Albumin Triglycerides 53 Cholesterol 159 Total LDL Cholesterol 73 HDL Cholesterol 79 H Lipase Tumor Marker AFP Urine Color Urine Appearance Urine pH Ur Specific Neely Urine Protein Urine Glucose (UA) Urine Ketones Urine Blood Urine Nitrite Urine Bilirubin Urine Urobilinogen Ur Leukocyte Esterase Urine WBC (Auto) Urine RBC (Auto) Urine Casts (Auto) U Epithel Cells (Auto) Urine Bacteria (Auto) Stool Occult Blood Tiss Transglutamin IgG Tiss Transglutamin IgA H. pylori IgG Antibody H. pylori IgA Antibody H. pylori IgM Antibody Hep C Ab Diagnostic HIV 1&2 Antibody Screen HIV P24 Antigen Blood Type Antibody Screen 09/20/19 09/21/19 09/21/19 08:05 05:55 05:55 WBC 4.5 RBC 3.54 L Hgb 10.9 L Hct 33.8 L MCV 95.3 MCH 30.7 MCHC 32.2 RDW 16.7 H Plt Count 146 MPV 10.0 Absolute Neuts (auto) 2.6 Neutrophils % 58.1 Lymphocytes % 28.5 Monocytes % 11.9 H Eosinophils % 1.1 Basophils % 0.4 Nucleated RBC % 0 Platelet Estimate Platelet Comment Retic Count 2.65 H PT with INR INR PTT (Actin FS) Sodium 136 137 Potassium 4.2 4.4 Chloride 105 106 Carbon Dioxide 26 24 Anion Gap 6 L 6 L BUN 11.7 11.2 Creatinine 1.3 1.2 Est GFR (CKD-EPI)AfAm 64.07 70.58 Est GFR (CKD-EPI)NonAf 55.28 60.90 Random Glucose 114 H 107 H Calcium 8.5 8.5 Phosphorus 2.2 L 2.2 L Magnesium 1.6 L 1.8 Iron TIBC Iron Saturation Unsaturated IBC Ferritin Total Bilirubin 0.8 AST 20 ALT 17 Alkaline Phosphatase 62 Creatine Kinase Creatine Kinase Index CK-MB (CK-2) Troponin I Total Protein 5.8 L Albumin 3.1 L Triglycerides Cholesterol Total LDL Cholesterol HDL Cholesterol Lipase Tumor Marker AFP Urine Color Urine Appearance Urine pH Ur Specific [place] Urine Protein Urine Glucose (UA) Urine Ketones Urine Blood Urine Nitrite Urine Bilirubin Urine Urobilinogen Ur Leukocyte Esterase Urine WBC (Auto) Urine RBC (Auto) Urine Casts (Auto) U Epithel Cells (Auto) Urine Bacteria (Auto) Stool Occult Blood Tiss Transglutamin IgG Tiss Transglutamin IgA H. pylori IgG Antibody H. pylori IgA Antibody H. pylori IgM Antibody Hep C Ab Diagnostic HIV 1&2 Antibody Screen HIV P24 Antigen Blood Type Antibody Screen 09/21/19 09/21/19 05:55 05:55 WBC RBC Hgb Hct MCV MCH MCHC RDW Plt Count MPV Absolute Neuts (auto) Neutrophils % Lymphocytes % Monocytes % Eosinophils % Basophils % Nucleated RBC % Platelet Estimate Platelet Comment Retic Count PT with INR INR PTT (Actin FS) Sodium Potassium Chloride Carbon Dioxide Anion Gap BUN Creatinine Est GFR (CKD-EPI)AfAm Est GFR (CKD-EPI)NonAf Random Glucose Calcium Phosphorus Magnesium Iron 29 L TIBC 254 Iron Saturation 11 L Unsaturated IBC 225 Ferritin 76.6 Total Bilirubin AST ALT Alkaline Phosphatase Creatine Kinase Creatine Kinase Index CK-MB (CK-2) Troponin I Total Protein Albumin Triglycerides Cholesterol Total LDL Cholesterol HDL Cholesterol Lipase Tumor Marker AFP 0.9 Urine Color Urine Appearance Urine pH Ur Specific [place] Urine Protein Urine Glucose (UA) Urine Ketones Urine Blood Urine Nitrite Urine Bilirubin Urine Urobilinogen Ur Leukocyte Esterase Urine WBC (Auto) Urine RBC (Auto) Urine Casts (Auto) U Epithel Cells (Auto) Urine Bacteria (Auto) Stool Occult Blood Tiss Transglutamin IgG < 2 Tiss Transglutamin IgA < 2 H. pylori IgG Antibody H. pylori IgA Antibody H. pylori IgM Antibody Hep C Ab Diagnostic HIV 1&2 Antibody Screen HIV P24 Antigen Blood Type Antibody Screen Current Medications Generic Name Dose Route Start Last Admin Trade Name Freq PRN Reason Stop Dose Admin Acetaminophen 650 mg 09/18/19 21:05 09/18/19 21:13 Tylenol - PO 650 mg Q6H PRN Administration Fever Or Pain Al Hydroxide/Mg Hydroxide 30 ml 09/21/19 12:15 09/22/19 06:19 Mylanta Oral Suspension - PO 30 ml Q6H ELLIE Administration Aspirin 81 mg 09/20/19 12:45 09/22/19 10:42 Asa - PO 81 mg DAILY ELLIE Administration Clopidogrel Bisulfate 75 mg 09/22/19 10:00 09/22/19 10:42 Plavix - PO 75 mg DAILY ELLIE Administration Folic Acid 1 mg 09/18/19 10:00 09/22/19 10:42 Folic Acid - PO 1 mg DAILY ELLIE Administration Isosorbide Mononitrate 30 mg 09/18/19 10:00 09/22/19 10:42 Imdur - PO 30 mg DAILY ELLIE Administration Melatonin 3 mg 09/19/19 01:15 09/21/19 21:13 Melatonin PO 3 mg HS ELLIE Administration Metoprolol Succinate 12.5 mg 09/18/19 10:00 09/22/19 10:42 Toprol Xl - PO 12.5 mg DAILY ELLIE Administration Multivitamins/Minerals/Vitamin C 1 tab 09/18/19 10:00 09/22/19 10:42 Tab-A-Vit - PO 1 tab DAILY ELLIE Administration Pantoprazole Sodium 40 mg 09/21/19 22:00 09/22/19 10:42 Protonix - PO 40 mg BID ELLIE Administration Thiamine HCl 100 mg 09/18/19 10:00 09/22/19 10:42 Vitamin B1 - PO 100 mg DAILY ELLIE Administration Home Medications Medication Instructions Recorded Allopurinol [Zyloprim -] 300 mg PO DAILY 05/20/18 Aspirin [ASA -] 81 mg PO DAILY tab.chew 05/31/18 Clopidogrel Bisulfate [Plavix -] 75 mg PO DAILY tablet 05/31/18 Atorvastatin Ca [Lipitor] 40 mg PO HS 01/15/19 Furosemide [Lasix -] 40 mg PO DAILY 01/15/19 Lisinopril 5 mg PO DAILY 01/15/19 Metoprolol Succinate 12.5 mg PO DAILY 04/17/19 Nitroglycerin 0.4 mg SL PRN 09/17/19 Date of Admission:09/17/19 Date of Discharge: 09/22/19 Discharge medications: continue home medications except for following adjustment. Stop Atorvastatin 40mg daily Start Atorvastatin 80mg daily Follow up with GI clinic in 1 month. Follow up with your Recharger in 1 week. Follow up with your PCP in 1 week. Minutes to complete discharge: 30 Discharge Summary Problems reviewed: Yes Reason For Visit: GI BLEED Current Active Problems Abdominal pain (Acute) Acute kidney injury superimposed on CKD (Acute) Esophagitis (Acute) Heart failure with reduced ejection fraction, NYHA class II (Acute) Hyperlipidemia (Acute) Upper GI bleed (Acute) Condition: Good - Instructions Diet, Activity, Other Instructions: You came to the hospital because you had a suspected upper GI bleed. There was no active bleeding in your stomach when you underwent upper GI scope. Your critical care educator recommended to go back on your Aspirin and Plavix. MEDICATIONS Please continue to take your home medications as prescribed. DIET Continue your home diet ADDITIONAL CARE Please make an appointment to see your primary care provider and critical care educator 1 week from today. ADDITIONAL INFORMATION Please call 911 or come directly to the emergency department if you experience unusual headache, vision change, shortness of breath, chest pain, numbness, tingling, loss of alertness/awareness, loss of function, unusual bleeding or any alarming symptoms. Thank you for allowing me to care for you. Referrals: Roge Cutler [Primary Care Provider] - Disposition: HOME - Home Medications Comprehensive Discharge Medication List: Ambulatory Orders Allopurinol [Zyloprim -] 300 mg PO DAILY 05/20/18 Aspirin [ASA -] 81 mg PO DAILY tab.chew 05/31/18 Clopidogrel Bisulfate [Plavix -] 75 mg PO DAILY tablet 05/31/18 Atorvastatin Ca [Lipitor] 40 mg PO HS 01/15/19 Furosemide [Lasix -] 40 mg PO DAILY 01/15/19 Lisinopril 5 mg PO DAILY 01/15/19 Metoprolol Succinate 12.5 mg PO DAILY 04/17/19 Nitroglycerin 0.4 mg SL PRN 09/17/19 This patient is new to me today: No Emergency Visit: Yes ED Registration Date: 09/17/19 Care time: The patient presented to the Emergency Department on the above date and was hospitalized for further evaluation of their emergent condition. Critical Care patient: No - Discharge Referral Referred to [facility] No
== END 2019-09-22 13:46 | disposition home or self-care (01) | DRG 378 ==
LOC: JER 14:33 → JERBED 17:19 → J4S 23:47
PROC: 0DJ08ZZ Inspection of Upper Intestinal Tract, Via Natural or Artificial Opening Endoscopic (ICD-10-PCS; principal; 2019-09-21 11:15)
DX: K25.4 Chronic or unspecified gastric ulcer with hemorrhage (principal); I50.42 Chronic combined systolic (congestive) and diastolic (congestive) heart failure; N17.9 Acute kidney failure, unspecified; I25.10 Atherosclerotic heart disease of native coronary artery without angina pectoris; E78.00 Pure hypercholesterolemia, unspecified; F17.210 Nicotine dependence, cigarettes, uncomplicated; J44.9 Chronic obstructive pulmonary disease, unspecified; K29.20 Alcoholic gastritis without bleeding; F10.20 Alcohol dependence, uncomplicated; M10.9 Gout, unspecified; I11.0 Hypertensive heart disease with heart failure; I25.5 Ischemic cardiomyopathy; R94.5 Abnormal results of liver function studies; D64.9 Anemia, unspecified; D69.6 Thrombocytopenia, unspecified; K44.9 Diaphragmatic hernia without obstruction or gangrene; K70.10 Alcoholic hepatitis without ascites; K80.20 Calculus of gallbladder without cholecystitis without obstruction; K63.5 Polyp of colon; R74.0 Nonspecific elevation of levels of transaminase and lactic acid dehydrogenase [LDH]; D50.0 Iron deficiency anemia secondary to blood loss (chronic); K76.0 Fatty (change of) liver, not elsewhere classified; K20.9 Esophagitis, unspecified; Z95.5 Presence of coronary angioplasty implant and graft; Z86.73 Personal history of transient ischemic attack (TIA), and cerebral infarction without residual deficits; Z87.11 Personal history of peptic ulcer disease; Z95.2 Presence of prosthetic heart valve
CPT/HCPCS: 36415; 80048; 80053; 80061; 81003; 82105; 82272; 82550; 82553; 82728; 83516; 83540; 83550; 83690; 83721; 83735; 84100; 84132; 84484; 85025; 85044; 85610; 85730; 86677; 86803; 86850; 86900; 86901; 87389; 93005; 93010; 97116-GP; 97161-GP; 99285-25; J7030

== ENCOUNTER 2020-10-26 13:59 | Inpatient (IN) | payer OTHER ==
[2020-10-26] MEDS ORDERED: METOPROLOL TARTRATE 5 MG/5 ML VIAL IVPUSH ONE ×2 (15:04→15:55)
[2020-10-26] MEDS ORDERED: METOPROLOL TARTRATE 5 MG/5 ML VIAL ONE ×2 (15:23→16:45)
[2020-10-26 15:55] LABS: BASO % 1.2 % (0-2.0); EOS % 0.5 % (0-4.5); HEMATOCRIT 42.3 % (35.4-49); HEMOGLOBIN 13.5 GM/dL (11.7-16.9); LYMPH % 22.5 % (8-40); MCH 29.5 pg (25.7-33.7); MEAN CELL VOLUME 92.2 fl (80-96); MEAN PLT VOLUME 8.7 fl (7.5-11.1); NEUT % 66.8 % (42.8-82.8); PLATELET COUNT 192 K/MM3 (134-434); RBC 4.58 M/mm3 (4.00-5.60); RDW 15.6 % (11.9-15.9); WHITE BLOOD COUNT 5.3 K/mm3 (4.0-10.0)
[2020-10-26 16:03] LABS: INR 1.34 (0.83-1.09); PROTHROMBIN TIME (PATIENT) 16.1 SEC (9.7-13.0)
[2020-10-26 16:04] LABS: EPI CELLS 2 /uL (0-25.1); HYALINE CASTS 0 /uL (0-3.1); URINE APPEARANCE CLEAR; URINE BACTERIA 14 /uL (0-1359); URINE BILIRUBIN NEGATIVE (NEGATIVE); URINE COLOR YELLOW; URINE GLUCOSE (UA) NEGATIVE (NEGATIVE); URINE KETONE NEGATIVE (NEGATIVE); URINE LEUK ESTERASE NEGATIVE (NEGATIVE); URINE NITRITE NEGATIVE (NEGATIVE); URINE PROTEIN 1+ (NEGATIVE); URINE RBC 3 /uL (0-23.9); URINE UROBILINOGEN 0.2 mg/dL (0.2-1.0); URINE WBC 1 /uL (0-25.8)
[2020-10-26 16:06] LABS: ACTIVATED PTT 30.2 SECONDS (25.2-36.5)
[2020-10-26 16:25] LABS: CALCIUM 9.4 mg/dL (8.5-10.1)
[2020-10-26 16:26] LABS: MAGNESIUM 1.6 mg/dL (1.8-2.4)
[2020-10-26 16:29] LABS: CREATININE 1.6 mg/dL (0.55-1.3)
[2020-10-26 16:30] LABS: TOT PROT 7.8 g/dl (6.4-8.2)
[2020-10-26 16:34] LABS: N-TERMINAL BNP 7042.3 pg/ml (5-125)
[2020-10-26] MEDS ORDERED: MAGNESIUM OXIDE 400 MG TABLET (FP) PO ONE (21:50)
[2020-10-26] MEDS ORDERED: ATORVASTATIN CA 80 MG TABLET (FP) ONE (21:57)
[2020-10-26] MEDS ORDERED: PANTOPRAZOLE 40 MG TABLET ONE (21:57)
[2020-10-26] MEDS ORDERED: MAGNESIUM OXIDE 400 MG TABLET (FP) ONE (21:57)
[2020-10-26] MEDS ORDERED: HEPARIN NA (PORCINE) 5,000 UNITS/ML 1ML VIAL ONE (22:01)
[2020-10-26] MEDS: ATORVASTATIN CA 40 MG TABLET (FP) PO SCH (22:01)
[2020-10-26] MEDS: PANTOPRAZOLE 40 MG TABLET PO SCH (22:01)
[2020-10-26] MEDS: HEPARIN NA (PORCINE) 5,000 UNITS/ML 1ML VIAL SQ SCH (22:05)
[2020-10-26] MEDS ORDERED: FUROSEMIDE 40 MG/4 ML INJECTABLE VIAL IVPUSH ONE (22:09)
[2020-10-26] MEDS ORDERED: FUROSEMIDE 40 MG/4 ML INJECTABLE VIAL ONE (22:11)
[2020-10-27] MEDS: HEPARIN NA (PORCINE) 5,000 UNITS/ML 1ML VIAL SQ SCH ×3 (06:47→22:33)
[2020-10-27] MEDS ORDERED: FUROSEMIDE 40 MG/4 ML INJECTABLE VIAL ONE ×2 (06:49→14:01)
[2020-10-27] MEDS: FUROSEMIDE 40 MG/4 ML INJECTABLE VIAL IVPUSH SCH ×2 (06:52→15:05)
[2020-10-27 07:09] LABS: BASO % 0.2 % (0-2.0); EOS % 0.6 % (0-4.5); HEMATOCRIT 40.8 % (35.4-49); HEMOGLOBIN 13.4 GM/dL (11.7-16.9); LYMPH % 27.1 % (8-40); MCH 29.9 pg (25.7-33.7); MCHC 32.8 g/dl (32.0-35.9); MEAN CELL VOLUME 91.1 fl (80-96); MEAN PLT VOLUME 9.3 fl (7.5-11.1); MONO % 11.1 % (3.8-10.2); PLATELET COUNT 197 K/MM3 (134-434); RBC 4.47 M/mm3 (4.00-5.60); RDW 16.6 % (11.9-15.9); WHITE BLOOD COUNT 6.5 K/mm3 (4.0-10.0)
[2020-10-27 07:33] LABS: POTASSIUM 3.7 mmol/L (3.5-5.1)
[2020-10-27 07:38] LABS: ALBUMIN 3.5 g/dl (3.4-5.0); CALCIUM 8.4 mg/dL (8.5-10.1)
[2020-10-27 07:39] LABS: BLOOD UREA NITROGEN 29.9 mg/dL (7-18); MAGNESIUM 1.5 mg/dL (1.8-2.4)
[2020-10-27 07:41] LABS: CREATININE 1.7 mg/dL (0.55-1.3)
[2020-10-27 07:43] LABS: BILIRUBIN,TOTAL 3.4 mg/dL (0.2-1); PHOSPHOROUS 3.3 mg/dL (2.5-4.9)
[2020-10-27] MEDS ORDERED: metoPROLOL SUCCINATE 25 MG TAB.SR.24H (FP) PO SCH ×2 (10:00→20:40)
[2020-10-27] MEDS ORDERED: PANTOPRAZOLE 40 MG TABLET ONE (10:29)
[2020-10-27] MEDS ORDERED: MULTIVITAMINS (DAILY MVI) TABLET (FP) ONE (10:29)
[2020-10-27] MEDS ORDERED: ASPIRIN 81 MG CHEWABLE TABLETS ONE (10:29)
[2020-10-27] MEDS ORDERED: metoPROLOL SUCCINATE 25 MG TAB.SR.24H (FP) ONE (10:30)
[2020-10-27] MEDS ORDERED: CLOPIDOGREL BISULFATE 75 MG TABLET (FP) ONE (10:30)
[2020-10-27] MEDS ORDERED: ISOSORBIDE MONONITRATE 60 MG TAB.SR.24H (FP) PO ONE (10:30)
[2020-10-27] MEDS ORDERED: THIAMINE HCL 100 MG TABLET (FP) ONE (10:30)
[2020-10-27] MEDS ORDERED: FOLIC ACID 1 MG TABLET (FP) ONE (10:31)
[2020-10-27] MEDS: MULTIVITAMINS (DAILY MVI) TABLET (FP) PO SCH (11:00)
[2020-10-27] MEDS: THIAMINE HCL 100 MG TABLET (FP) PO SCH (11:00)
[2020-10-27] MEDS: PANTOPRAZOLE 40 MG TABLET PO SCH ×2 (11:00→22:34)
[2020-10-27] MEDS: ASPIRIN 81 MG CHEWABLE TABLETS PO SCH (11:00)
[2020-10-27] MEDS: CLOPIDOGREL BISULFATE 75 MG TABLET (FP) PO SCH (11:00)
[2020-10-27] MEDS: FOLIC ACID 1 MG TABLET (FP) PO SCH (11:00)
[2020-10-27] MEDS: ISOSORBIDE MONONITRATE 30 MG TAB.SR.24H (FP) PO SCH (11:35)
[2020-10-27] MEDS: ALLOPURINOL 300 MG TABLET (FP) PO SCH (12:00)
[2020-10-27] MEDS ORDERED: HEPARIN NA (PORCINE) 5,000 UNITS/ML 1ML VIAL ONE (14:01)
[2020-10-27] MEDS ORDERED: FLU VACCINE (FLULAVAL) PF 60 MCG/0.5 ML SYRINGE 2020-2021 IM ONE (14:30)
[2020-10-27] MEDS ORDERED: METOPROLOL TARTRATE 5 MG/5 ML VIAL IVPUSH ONE (20:36)
[2020-10-27] MEDS ORDERED: MAGNESIUM SULF 50% (8.12 MEQ/2 ML-1 GM VIAL) IVPB ONE (20:36)
[2020-10-27] MEDS: metoPROLOL SUCCINATE 25 MG TAB.SR.24H (FP) PO SCH ×2 (22:34→22:41)
[2020-10-27] MEDS: ATORVASTATIN CA 40 MG TABLET (FP) PO SCH (22:34)
[2020-10-28] MEDS: FUROSEMIDE 40 MG/4 ML INJECTABLE VIAL IVPUSH SCH ×2 (05:56→14:40)
[2020-10-28] MEDS: HEPARIN NA (PORCINE) 5,000 UNITS/ML 1ML VIAL SQ SCH ×3 (06:02→21:37)
[2020-10-28 08:21] LABS: ALBUMIN 3.5 g/dl (3.4-5.0); BILIRUBIN,TOTAL 3.7 mg/dl (0.2-1); CALCIUM 8.5 mg/dl (8.5-10); CREATININE 1.7 mg/dl (0.55-1.3); POTASSIUM 3.6 mmol/L (3.5-5.1); TOT PROT 6.7 g/dl (6.4-8.2)
[2020-10-28] MEDS: ASPIRIN 81 MG CHEWABLE TABLETS PO SCH (09:34)
[2020-10-28] MEDS: ALLOPURINOL 300 MG TABLET (FP) PO SCH (09:35)
[2020-10-28] MEDS: FOLIC ACID 1 MG TABLET (FP) PO SCH (09:35)
[2020-10-28] MEDS: CLOPIDOGREL BISULFATE 75 MG TABLET (FP) PO SCH (09:35)
[2020-10-28] MEDS: PANTOPRAZOLE 40 MG TABLET PO SCH ×2 (09:36→21:38)
[2020-10-28] MEDS: MULTIVITAMINS (DAILY MVI) TABLET (FP) PO SCH (09:36)
[2020-10-28] MEDS: metoPROLOL SUCCINATE 25 MG TAB.SR.24H (FP) PO SCH ×2 (09:36→21:38)
[2020-10-28] MEDS: THIAMINE HCL 100 MG TABLET (FP) PO SCH (09:36)
[2020-10-28] MEDS: ISOSORBIDE MONONITRATE 30 MG TAB.SR.24H (FP) PO SCH (09:37)
[2020-10-28] MEDS ORDERED: FLU VACCINE (FLULAVAL) PF 60 MCG/0.5 ML SYRINGE 2020-2021 IM ONE (14:30)
[2020-10-28] MEDS: ATORVASTATIN CA 40 MG TABLET (FP) PO SCH (21:37)
[2020-10-29] MEDS ORDERED: MAG HYDROX/AL HYDROX/SIMETH 30 ML UNIT-DOSE CUP PO ONE (06:00)
[2020-10-29] MEDS: HEPARIN NA (PORCINE) 5,000 UNITS/ML 1ML VIAL SQ SCH ×2 (06:23→14:25)
[2020-10-29] MEDS: FUROSEMIDE 40 MG TABLET (FP) PO SCH ×2 (06:23→14:31)
[2020-10-29 08:00] LABS: EOS % 0.8 % (0-4.5); HEMATOCRIT 40.2 % (35.4-49); LYMPH % 23.4 % (8-40); MCH 29.9 pg (25.7-33.7); MCHC 32.3 g/dl (32.0-35.9); MEAN CELL VOLUME 92.6 fl (80-96); MONO % 10.1 % (3.8-10.2); NEUT % 64.7 % (42.8-82.8); PLATELET COUNT 186 K/MM3 (134-434); RBC 4.34 M/mm3 (4.00-5.60); RDW 15.1 % (11.9-15.9); WHITE BLOOD COUNT 6.3 K/mm3 (4.0-10.8)
[2020-10-29 08:09] LABS: ALBUMIN 3.5 g/dl (3.4-5.0); BILIRUBIN,TOTAL 2.6 mg/dl (0.2-1); CALCIUM 8.7 mg/dl (8.5-10); MAGNESIUM 1.7 mg/dL (1.8-2.4); POTASSIUM 3.8 mmol/L (3.5-5.1); TOT PROT 6.6 g/dl (6.4-8.2)
[2020-10-29] MEDS ORDERED: MAGNESIUM SULF 50% (8.12 MEQ/2 ML-1 GM VIAL) IVPB ONE (09:29)
[2020-10-29] MEDS: ASPIRIN 81 MG CHEWABLE TABLETS PO SCH (09:36)
[2020-10-29] MEDS: MULTIVITAMINS (DAILY MVI) TABLET (FP) PO SCH (09:36)
[2020-10-29] MEDS: FOLIC ACID 1 MG TABLET (FP) PO SCH (09:36)
[2020-10-29] MEDS: ISOSORBIDE MONONITRATE 30 MG TAB.SR.24H (FP) PO SCH (09:36)
[2020-10-29] MEDS: ALLOPURINOL 300 MG TABLET (FP) PO SCH (09:36)
[2020-10-29] MEDS: CLOPIDOGREL BISULFATE 75 MG TABLET (FP) PO SCH (09:36)
[2020-10-29] MEDS: THIAMINE HCL 100 MG TABLET (FP) PO SCH (09:36)
[2020-10-29] MEDS: PANTOPRAZOLE 40 MG TABLET PO SCH ×2 (09:36→21:52)
[2020-10-29] MEDS: metoPROLOL SUCCINATE 25 MG TAB.SR.24H (FP) PO SCH ×2 (09:36→21:51)
[2020-10-29] MEDS ORDERED: POTASSIUM CHLORIDE TABS 20 MEQ TABLET.ER (FP) PO ONE (09:50)
[2020-10-29] MEDS ORDERED: MAGNESIUM SULFATE IN WATER 2 GM/50 ML IVPB IVPB ONE (10:00)
[2020-10-29] MEDS ORDERED: FUROSEMIDE 40 MG/4 ML INJECTABLE VIAL IVPUSH ONE (12:00)
[2020-10-29] MEDS ORDERED: SIMETHICONE 80 MG TAB.CHEW (FP) PO PRN (18:24)
[2020-10-29] MEDS: APIXABAN 2.5 MG TABLET PO SCH (21:51)
[2020-10-29] MEDS: ATORVASTATIN CA 40 MG TABLET (FP) PO SCH (21:52)
[2020-10-30] MEDS: FUROSEMIDE 40 MG TABLET (FP) PO SCH (06:34)
[2020-10-30 08:28] LABS: ALBUMIN 3.9 g/dl (3.4-5.0); BILIRUBIN,TOTAL 2.6 mg/dl (0.2-1); CALCIUM 8.7 mg/dl (8.5-10); CREATININE 2.3 mg/dl (0.55-1.3); MAGNESIUM 2.3 mg/dL (1.8-2.4); POTASSIUM 5.4 mmol/L (3.5-5.1); TOT PROT 7.1 g/dl (6.4-8.2)
[2020-10-30 08:36] LABS: BASO % 1.2 % (0-2.0); EOS % 0.3 % (0-4.5); HEMATOCRIT 42.8 % (35.4-49); HEMOGLOBIN 13.4 GM/dl (11.7-16.9); LYMPH % 21.7 % (8-40); MCH 29.3 pg (25.7-33.7); MCHC 31.4 g/dl (32.0-35.9); MEAN CELL VOLUME 93.2 fl (80-96); MEAN PLT VOLUME 9.4 fl (7.5-11.1); NEUT % 64.8 % (42.8-82.8); PLATELET COUNT 172 K/MM3 (134-434); RBC 4.59 M/mm3 (4.00-5.60); WHITE BLOOD COUNT 6.1 K/mm3 (4.0-10.8)
[2020-10-30] MEDS: APIXABAN 2.5 MG TABLET PO SCH ×2 (08:59→21:39)
[2020-10-30] MEDS: PANTOPRAZOLE 40 MG TABLET PO SCH ×2 (08:59→21:37)
[2020-10-30] MEDS: ISOSORBIDE MONONITRATE 30 MG TAB.SR.24H (FP) PO SCH (08:59)
[2020-10-30] MEDS: ASPIRIN 81 MG CHEWABLE TABLETS PO SCH (08:59)
[2020-10-30] MEDS: FOLIC ACID 1 MG TABLET (FP) PO SCH (08:59)
[2020-10-30] MEDS: THIAMINE HCL 100 MG TABLET (FP) PO SCH (09:00)
[2020-10-30] MEDS: MULTIVITAMINS (DAILY MVI) TABLET (FP) PO SCH (09:00)
[2020-10-30] MEDS: metoPROLOL SUCCINATE 25 MG TAB.SR.24H (FP) PO SCH ×2 (09:00→21:38)
[2020-10-30] MEDS: ALLOPURINOL 300 MG TABLET (FP) PO SCH (09:01)
[2020-10-30] MEDS ORDERED: SODIUM ZIRCONIUM CYCLOSILICATE (LOKELMA) 5 GM PACKET PO ONE (11:30)
[2020-10-30] MEDS ORDERED: METOPROLOL TARTRATE 5 MG/5 ML VIAL IVPUSH ONE ×2 (14:00→14:48)
[2020-10-30] MEDS ORDERED: METOPROLOL TARTRATE 5 MG/5 ML VIAL ONE (14:01)
[2020-10-30] MEDS ORDERED: METOPROLOL TARTRATE 5 MG/5 ML VIAL IVPUSH PRN (14:01)
[2020-10-30] MEDS ORDERED: SIMETHICONE 80 MG TAB.CHEW (FP) PO PRN (19:37)
[2020-10-30] MEDS: ATORVASTATIN CA 80 MG TABLET (FP) PO SCH (21:38)
[2020-10-31] MEDS ORDERED: hydrALAZINE HCL 10 MG TABLET PO ONE ×2 (06:39→06:45)
[2020-10-31] MEDS: MULTIVITAMINS (DAILY MVI) TABLET (FP) PO SCH (09:15)
[2020-10-31] MEDS: metoPROLOL SUCCINATE 25 MG TAB.SR.24H (FP) PO SCH ×2 (09:15→22:15)
[2020-10-31] MEDS: ALLOPURINOL 300 MG TABLET (FP) PO SCH (09:15)
[2020-10-31] MEDS: ISOSORBIDE MONONITRATE 30 MG TAB.SR.24H (FP) PO SCH (09:16)
[2020-10-31] MEDS: ASPIRIN 81 MG CHEWABLE TABLETS PO SCH (09:16)
[2020-10-31] MEDS: APIXABAN 2.5 MG TABLET PO SCH ×3 (09:16→22:16)
[2020-10-31] MEDS: FOLIC ACID 1 MG TABLET (FP) PO SCH (09:16)
[2020-10-31] MEDS: PANTOPRAZOLE 40 MG TABLET PO SCH ×2 (09:16→22:15)
[2020-10-31] MEDS: THIAMINE HCL 100 MG TABLET (FP) PO SCH (09:16)
[2020-10-31 09:54] LABS: BASO % 0.4 % (0-2.0); EOS % 0.1 % (0-4.5); HEMATOCRIT 40.9 % (35.4-49); HEMOGLOBIN 13.3 GM/dL (11.7-16.9); LYMPH % 11.1 % (8-40); MCHC 32.5 g/dl (32.0-35.9); MEAN CELL VOLUME 92.1 fl (80-96); MEAN PLT VOLUME 9.7 fl (7.5-11.1); MONO % 10.6 % (3.8-10.2); NEUT % 77.8 % (42.8-82.8); PLATELET COUNT 156 K/MM3 (134-434); RBC 4.44 M/mm3 (4.00-5.60); RDW 16.3 % (11.9-15.9)
[2020-10-31 10:24] LABS: POTASSIUM 5.3 mmol/L (3.5-5.1)
[2020-10-31 10:26] LABS: ALBUMIN 3.6 g/dl (3.4-5.0); BLOOD UREA NITROGEN 52.3 mg/dL (7-18); CALCIUM 8.7 mg/dL (8.5-10.1); MAGNESIUM 2.3 mg/dL (1.8-2.4)
[2020-10-31 10:29] LABS: CREATININE 2.9 mg/dL (0.55-1.3)
[2020-10-31 10:30] LABS: PHOSPHOROUS 4.2 mg/dL (2.5-4.9)
[2020-10-31 10:31] LABS: BILIRUBIN,TOTAL 3.5 mg/dL (0.2-1); TOT PROT 7.2 g/dl (6.4-8.2)
[2020-10-31] MEDS ORDERED: ONDANSETRON 4 MG/2 ML VIAL IVPUSH PRN (15:50)
[2020-10-31] MEDS: SODIUM ZIRCONIUM CYCLOSILICATE (LOKELMA) 5 GM PACKET PO SCH (18:00)
[2020-10-31] MEDS: ATORVASTATIN CA 80 MG TABLET (FP) PO SCH (22:15)
[2020-11-01 07:47] LABS: INR 2.24 (0.83-1.09); PROTHROMBIN TIME (PATIENT) 26.9 SEC (9.7-13.0)
[2020-11-01] MEDS: ASPIRIN 81 MG CHEWABLE TABLETS PO SCH (09:58)
[2020-11-01] MEDS: ISOSORBIDE MONONITRATE 30 MG TAB.SR.24H (FP) PO SCH (09:59)
[2020-11-01] MEDS: FOLIC ACID 1 MG TABLET (FP) PO SCH (09:59)
[2020-11-01] MEDS: SODIUM ZIRCONIUM CYCLOSILICATE (LOKELMA) 5 GM PACKET PO SCH (10:00)
[2020-11-01] MEDS: PANTOPRAZOLE 40 MG TABLET PO SCH ×2 (10:00→21:44)
[2020-11-01] MEDS ORDERED: hydrALAZINE HCL 10 MG TABLET PO SCH ×2 (10:00)
[2020-11-01] MEDS: metoPROLOL SUCCINATE 25 MG TAB.SR.24H (FP) PO SCH ×2 (10:00→21:44)
[2020-11-01] MEDS: MULTIVITAMINS (DAILY MVI) TABLET (FP) PO SCH (10:00)
[2020-11-01] MEDS: ALLOPURINOL 300 MG TABLET (FP) PO SCH (10:01)
[2020-11-01] MEDS: THIAMINE HCL 100 MG TABLET (FP) PO SCH (10:01)
[2020-11-01 12:57] LABS: BASO % 1.5 % (0-2.0); EOS % 0.1 % (0-4.5); HEMOGLOBIN 13.2 GM/dL (11.7-16.9); MCH 29.8 pg (25.7-33.7); MCHC 32.2 g/dl (32.0-35.9); MEAN CELL VOLUME 92.7 fl (80-96); MEAN PLT VOLUME 10.3 fl (7.5-11.1); MONO % 9.4 % (3.8-10.2); PLATELET COUNT 157 K/MM3 (134-434); RBC 4.42 M/mm3 (4.00-5.60); RDW 16.3 % (11.9-15.9); WHITE BLOOD COUNT 7.6 K/mm3 (4.0-10.0)
[2020-11-01 13:09] LABS: POTASSIUM 4.6 mmol/L (3.5-5.1)
[2020-11-01 13:11] LABS: CALCIUM 9.1 mg/dL (8.5-10.1)
[2020-11-01 13:12] LABS: ALBUMIN 3.9 g/dl (3.4-5.0); MAGNESIUM 2.5 mg/dL (1.8-2.4)
[2020-11-01 13:15] LABS: CREATININE 2.8 mg/dL (0.55-1.3)
[2020-11-01 13:16] LABS: BILIRUBIN,TOTAL 3.7 mg/dL (0.2-1); TOT PROT 7.4 g/dl (6.4-8.2)
[2020-11-01 13:20] LABS: BLOOD UREA NITROGEN 57.8 mg/dL (7-18)
[2020-11-01] MEDS: hydrALAZINE HCL 10 MG TABLET PO SCH ×2 (14:24→21:44)
[2020-11-01 15:21] LABS: ANISOCYTOSIS 0; HELMET CELLS 0; HOWELL-JOLLY BODIES 0; MACROCYTOSIS 0; OVALOCYTE 0; PLATELET ESTIMATE NORMAL; ROULEAU 0; SICKELED CELLS 0; TARGET CELLS 0; TEAR DROP CELLS 0; TOXIC GRANULATION 0
[2020-11-01] MEDS ORDERED: ALBUTEROL SO4 2.5/IPRATROPIUM 0.5 INH SOL 3 ML VIAL.NEB. NEB PRN (16:18)
[2020-11-01] MEDS: APIXABAN 2.5 MG TABLET PO SCH (18:46)
[2020-11-01] MEDS: ATORVASTATIN CA 80 MG TABLET (FP) PO SCH (21:44)
[2020-11-02] MEDS: hydrALAZINE HCL 10 MG TABLET PO SCH ×3 (07:15→21:35)
[2020-11-02 08:16] LABS: BASO % 0.4 % (0-2.0); EOS % 0.4 % (0-4.5); HEMATOCRIT 38.3 % (35.4-49); HEMOGLOBIN 12.5 GM/dL (11.7-16.9); LYMPH % 16.2 % (8-40); MCH 29.7 pg (25.7-33.7); MCHC 32.6 g/dl (32.0-35.9); MEAN CELL VOLUME 90.9 fl (80-96); MEAN PLT VOLUME 9.9 fl (7.5-11.1); MONO % 11.2 % (3.8-10.2); NEUT % 71.8 % (42.8-82.8); PLATELET COUNT 153 K/MM3 (134-434); RBC 4.21 M/mm3 (4.00-5.60); RDW 15.9 % (11.9-15.9); WHITE BLOOD COUNT 6.4 K/mm3 (4.0-10.0)
[2020-11-02 08:42] LABS: POTASSIUM 4.5 mmol/L (3.5-5.1)
[2020-11-02 08:44] LABS: CALCIUM 8.5 mg/dL (8.5-10.1); MAGNESIUM 2.3 mg/dL (1.8-2.4)
[2020-11-02 08:45] LABS: ALBUMIN 3.3 g/dl (3.4-5.0); BLOOD UREA NITROGEN 48.9 mg/dL (7-18)
[2020-11-02 08:47] LABS: CREATININE 2.2 mg/dL (0.55-1.3)
[2020-11-02 08:49] LABS: BILIRUBIN,TOTAL 2.3 mg/dL (0.2-1); TOT PROT 6.7 g/dl (6.4-8.2)
[2020-11-02] MEDS: THIAMINE HCL 100 MG TABLET (FP) PO SCH (11:26)
[2020-11-02] MEDS: MULTIVITAMINS (DAILY MVI) TABLET (FP) PO SCH (11:26)
[2020-11-02] MEDS: ALLOPURINOL 300 MG TABLET (FP) PO SCH (11:26)
[2020-11-02] MEDS: ISOSORBIDE MONONITRATE 30 MG TAB.SR.24H (FP) PO SCH (11:26)
[2020-11-02] MEDS: metoPROLOL SUCCINATE 25 MG TAB.SR.24H (FP) PO SCH ×2 (11:26→21:35)
[2020-11-02] MEDS: FOLIC ACID 1 MG TABLET (FP) PO SCH (11:26)
[2020-11-02] MEDS: PANTOPRAZOLE 40 MG TABLET PO SCH ×2 (11:26→21:35)
[2020-11-02] MEDS: ATORVASTATIN CA 80 MG TABLET (FP) PO SCH (21:35)
[2020-11-02] MEDS: APIXABAN 2.5 MG TABLET PO SCH (21:35)
[2020-11-03] MEDS: hydrALAZINE HCL 10 MG TABLET PO SCH ×3 (06:27→21:44)
[2020-11-03] MEDS ORDERED: METOPROLOL TARTRATE 25 MG TABLET (FP) PO ONE (07:20)
[2020-11-03 07:32] LABS: BASO % 0.3 % (0-2.0); EOS % 0.5 % (0-4.5); HEMATOCRIT 40.1 % (35.4-49); HEMOGLOBIN 13.1 GM/dL (11.7-16.9); LYMPH % 20.8 % (8-40); MCH 29.6 pg (25.7-33.7); MCHC 32.5 g/dl (32.0-35.9); MEAN CELL VOLUME 91.1 fl (80-96); MEAN PLT VOLUME 10.3 fl (7.5-11.1); MONO % 14.8 % (3.8-10.2); NEUT % 63.6 % (42.8-82.8); PLATELET COUNT 173 K/MM3 (134-434); RDW 16.2 % (11.9-15.9); WHITE BLOOD COUNT 6.7 K/mm3 (4.0-10.0)
[2020-11-03 08:10] LABS: POTASSIUM 4.6 mmol/L (3.5-5.1)
[2020-11-03 08:20] LABS: BILIRUBIN,TOTAL 1.9 mg/dL (0.2-1); TOT PROT 7.1 g/dl (6.4-8.2)
[2020-11-03 08:23] LABS: ALBUMIN 3.3 g/dl (3.4-5.0)
[2020-11-03 08:24] LABS: MAGNESIUM 2.2 mg/dL (1.8-2.4)
[2020-11-03 08:26] LABS: CREATININE 2.1 mg/dL (0.55-1.3)
[2020-11-03] MEDS: ASPIRIN 81 MG CHEWABLE TABLETS PO SCH (09:56)
[2020-11-03] MEDS: MULTIVITAMINS (DAILY MVI) TABLET (FP) PO SCH (09:57)
[2020-11-03] MEDS: THIAMINE HCL 100 MG TABLET (FP) PO SCH (09:57)
[2020-11-03] MEDS: APIXABAN 2.5 MG TABLET PO SCH ×2 (09:57→21:44)
[2020-11-03] MEDS: ISOSORBIDE MONONITRATE 30 MG TAB.SR.24H (FP) PO SCH (09:57)
[2020-11-03] MEDS: PANTOPRAZOLE 40 MG TABLET PO SCH ×2 (09:57→21:44)
[2020-11-03] MEDS: ALLOPURINOL 300 MG TABLET (FP) PO SCH (09:57)
[2020-11-03] MEDS: FOLIC ACID 1 MG TABLET (FP) PO SCH (09:58)
[2020-11-03 12:22] LABS: N-TERMINAL BNP 10232.5 pg/ml (5-125)
[2020-11-03] MEDS: METOPROLOL TARTRATE 25 MG TABLET (FP) PO SCH ×2 (13:06→21:44)
[2020-11-03] MEDS ORDERED: DEXTROSE 5%-WATER - 50 ML IVPB ONE (15:55)
[2020-11-03] MEDS ORDERED: cefTRIAXone SODIUM 1 GM VIAL ONE (15:55)
[2020-11-03] MEDS: CEFTRIAXONE 1 GM in DEXTROSE 5%-WATER - 50 ML IVPB SCH (16:11)
[2020-11-03] MEDS: ATORVASTATIN CA 80 MG TABLET (FP) PO SCH (21:44)
[2020-11-04] MEDS: hydrALAZINE HCL 10 MG TABLET PO SCH ×3 (06:25→21:22)
[2020-11-04] MEDS: METOPROLOL TARTRATE 25 MG TABLET (FP) PO SCH ×3 (06:25→21:22)
[2020-11-04 07:37] LABS: BASO % 0.2 % (0-2.0); EOS % 1.1 % (0-4.5); LYMPH % 21.2 % (8-40); MCH 29.9 pg (25.7-33.7); MCHC 32.4 g/dl (32.0-35.9); MEAN CELL VOLUME 92.2 fl (80-96); MEAN PLT VOLUME 9.7 fl (7.5-11.1); MONO % 12.5 % (3.8-10.2); RBC 4.34 M/mm3 (4.00-5.60); WHITE BLOOD COUNT 5.9 K/mm3 (4.0-10.0)
[2020-11-04 07:58] LABS: POTASSIUM 4.6 mmol/L (3.5-5.1)
[2020-11-04] MEDS ORDERED: cefTRIAXone SODIUM 1 GM VIAL ONE (08:40)
[2020-11-04] MEDS ORDERED: DEXTROSE 5%-WATER - 50 ML IVPB ONE (08:41)
[2020-11-04 08:45] LABS: ALBUMIN 3.3 g/dl (3.4-5.0)
[2020-11-04 08:46] LABS: BLOOD UREA NITROGEN 37.1 mg/dL (7-18); MAGNESIUM 2.2 mg/dL (1.8-2.4)
[2020-11-04 08:49] LABS: CREATININE 2.1 mg/dL (0.55-1.3)
[2020-11-04 08:50] LABS: BILIRUBIN,TOTAL 1.5 mg/dL (0.2-1); TOT PROT 7.2 g/dl (6.4-8.2)
[2020-11-04] MEDS: ISOSORBIDE MONONITRATE 30 MG TAB.SR.24H (FP) PO SCH (09:49)
[2020-11-04] MEDS: PANTOPRAZOLE 40 MG TABLET PO SCH ×2 (09:49→21:22)
[2020-11-04] MEDS: MULTIVITAMINS (DAILY MVI) TABLET (FP) PO SCH (09:49)
[2020-11-04] MEDS: CEFTRIAXONE 1 GM in DEXTROSE 5%-WATER - 50 ML IVPB SCH (09:49)
[2020-11-04] MEDS: THIAMINE HCL 100 MG TABLET (FP) PO SCH (09:49)
[2020-11-04] MEDS: ALLOPURINOL 300 MG TABLET (FP) PO SCH (09:50)
[2020-11-04] MEDS: ASPIRIN 81 MG CHEWABLE TABLETS PO SCH (09:50)
[2020-11-04] MEDS: FOLIC ACID 1 MG TABLET (FP) PO SCH (09:50)
[2020-11-04] MEDS: APIXABAN 2.5 MG TABLET PO SCH ×2 (09:50→21:22)
[2020-11-04 10:13] LABS: PLATELET COUNT 163 K/MM3 (134-434)
[2020-11-04] MEDS: ATORVASTATIN CA 80 MG TABLET (FP) PO SCH (21:22)
[2020-11-05] MEDS: METOPROLOL TARTRATE 25 MG TABLET (FP) PO SCH ×3 (06:55→21:26)
[2020-11-05] MEDS: hydrALAZINE HCL 10 MG TABLET PO SCH ×3 (06:55→21:25)
[2020-11-05 09:24] LABS: BASO % 0.5 % (0-2.0); EOS % 0.5 % (0-4.5); HEMATOCRIT 44.1 % (35.4-49); HEMOGLOBIN 14.4 GM/dL (11.7-16.9); MCH 29.7 pg (25.7-33.7); MCHC 32.6 g/dl (32.0-35.9); MEAN CELL VOLUME 91.2 fl (80-96); MEAN PLT VOLUME 9.9 fl (7.5-11.1); MONO % 12.8 % (3.8-10.2); NEUT % 59.2 % (42.8-82.8); PLATELET COUNT 171 K/MM3 (134-434); RBC 4.83 M/mm3 (4.00-5.60); RDW 16.7 % (11.9-15.9); WHITE BLOOD COUNT 5.7 K/mm3 (4.0-10.0)
[2020-11-05 09:51] LABS: POTASSIUM 4.9 mmol/L (3.5-5.1)
[2020-11-05 10:18] LABS: ALBUMIN 3.5 g/dl (3.4-5.0); BLOOD UREA NITROGEN 37.7 mg/dL (7-18); CALCIUM 9.4 mg/dL (8.5-10.1)
[2020-11-05 10:19] LABS: MAGNESIUM 2.3 mg/dL (1.8-2.4)
[2020-11-05 10:21] LABS: CREATININE 2.2 mg/dL (0.55-1.3)
[2020-11-05 10:23] LABS: BILIRUBIN,TOTAL 1.5 mg/dL (0.2-1); TOT PROT 7.7 g/dl (6.4-8.2)
[2020-11-05] MEDS ORDERED: cefTRIAXone SODIUM 1 GM VIAL ONE (10:54)
[2020-11-05] MEDS ORDERED: DEXTROSE 5%-WATER - 50 ML IVPB ONE (10:55)
[2020-11-05] MEDS: MULTIVITAMINS (DAILY MVI) TABLET (FP) PO SCH (11:08)
[2020-11-05] MEDS: CEFTRIAXONE 1 GM in DEXTROSE 5%-WATER - 50 ML IVPB SCH (11:08)
[2020-11-05] MEDS: FOLIC ACID 1 MG TABLET (FP) PO SCH (11:08)
[2020-11-05] MEDS: APIXABAN 2.5 MG TABLET PO SCH ×2 (11:08→21:26)
[2020-11-05] MEDS: PANTOPRAZOLE 40 MG TABLET PO SCH ×2 (11:08→21:25)
[2020-11-05] MEDS: ALLOPURINOL 300 MG TABLET (FP) PO SCH (11:09)
[2020-11-05] MEDS: THIAMINE HCL 100 MG TABLET (FP) PO SCH (11:09)
[2020-11-05] MEDS: ASPIRIN 81 MG CHEWABLE TABLETS PO SCH (11:09)
[2020-11-05] MEDS: ISOSORBIDE MONONITRATE 30 MG TAB.SR.24H (FP) PO SCH (11:11)
[2020-11-05] MEDS: FUROSEMIDE 40 MG TABLET (FP) PO SCH (14:28)
[2020-11-05] MEDS: ATORVASTATIN CA 80 MG TABLET (FP) PO SCH (21:26)
[2020-11-06] MEDS: hydrALAZINE HCL 10 MG TABLET PO SCH (06:36)
[2020-11-06] MEDS: METOPROLOL TARTRATE 25 MG TABLET (FP) PO SCH (06:36)
[2020-11-06] MEDS ORDERED: cefTRIAXone SODIUM 1 GM VIAL ONE (08:22)
[2020-11-06] MEDS ORDERED: DEXTROSE 5%-WATER - 50 ML IVPB ONE (08:23)
[2020-11-06] MEDS: THIAMINE HCL 100 MG TABLET (FP) PO SCH (10:05)
[2020-11-06] MEDS: MULTIVITAMINS (DAILY MVI) TABLET (FP) PO SCH (10:05)
[2020-11-06] MEDS: CEFTRIAXONE 1 GM in DEXTROSE 5%-WATER - 50 ML IVPB SCH (10:05)
[2020-11-06] MEDS: PANTOPRAZOLE 40 MG TABLET PO SCH ×2 (10:05→21:37)
[2020-11-06] MEDS: ISOSORBIDE MONONITRATE 30 MG TAB.SR.24H (FP) PO SCH (10:05)
[2020-11-06] MEDS: FOLIC ACID 1 MG TABLET (FP) PO SCH (10:05)
[2020-11-06] MEDS: FUROSEMIDE 40 MG TABLET (FP) PO SCH (10:05)
[2020-11-06] MEDS: ASPIRIN 81 MG CHEWABLE TABLETS PO SCH (10:06)
[2020-11-06] MEDS: ALLOPURINOL 300 MG TABLET (FP) PO SCH (10:06)
[2020-11-06] MEDS: APIXABAN 2.5 MG TABLET PO SCH ×2 (10:06→21:37)
[2020-11-06] MEDS: hydrALAZINE HCL 25 MG TABLET (FP) PO SCH ×2 (14:37→21:37)
[2020-11-06] MEDS: metoPROLOL SUCCINATE 25 MG TAB.SR.24H (FP) PO SCH (14:37)
[2020-11-06] MEDS: ATORVASTATIN CA 80 MG TABLET (FP) PO SCH (21:37)
[2020-11-06] MEDS: CEFUROXIME AXETIL 500 MG TABLET PO SCH (21:37)
[2020-11-07 09:02] LABS: EOS % 0.6 % (0-4.5); HEMATOCRIT 39.3 % (35.4-49); LYMPH % 21.5 % (8-40); MCH 29.5 pg (25.7-33.7); MCHC 33.1 g/dl (32.0-35.9); MEAN CELL VOLUME 89.1 fl (80-96); MEAN PLT VOLUME 9.6 fl (7.5-11.1); MONO % 10.6 % (3.8-10.2); NEUT % 66.3 % (42.8-82.8); PLATELET COUNT 179 K/MM3 (134-434); RBC 4.41 M/mm3 (4.00-5.60); RDW 16.1 % (11.9-15.9); WHITE BLOOD COUNT 6.3 K/mm3 (4.0-10.0)
[2020-11-07 10:29] LABS: POTASSIUM 4.7 mmol/L (3.5-5.1)
[2020-11-07 10:32] LABS: CALCIUM 8.9 mg/dL (8.5-10.1)
[2020-11-07 10:33] LABS: BLOOD UREA NITROGEN 49.4 mg/dL (7-18)
[2020-11-07 10:35] LABS: CREATININE 2.5 mg/dL (0.55-1.3)
[2020-11-07 10:37] LABS: BILIRUBIN,TOTAL 1.1 mg/dL (0.2-1); TOT PROT 6.9 g/dl (6.4-8.2)
[2020-11-07] MEDS: APIXABAN 2.5 MG TABLET PO SCH ×2 (10:50→21:53)
[2020-11-07] MEDS: PANTOPRAZOLE 40 MG TABLET PO SCH ×2 (10:50→21:52)
[2020-11-07] MEDS: THIAMINE HCL 100 MG TABLET (FP) PO SCH (10:50)
[2020-11-07] MEDS: ISOSORBIDE MONONITRATE 30 MG TAB.SR.24H (FP) PO SCH (10:50)
[2020-11-07] MEDS: ALLOPURINOL 300 MG TABLET (FP) PO SCH (10:50)
[2020-11-07] MEDS: ASPIRIN 81 MG CHEWABLE TABLETS PO SCH (10:50)
[2020-11-07] MEDS: MULTIVITAMINS (DAILY MVI) TABLET (FP) PO SCH (10:50)
[2020-11-07] MEDS: FOLIC ACID 1 MG TABLET (FP) PO SCH (10:50)
[2020-11-07] MEDS: hydrALAZINE HCL 25 MG TABLET (FP) PO SCH ×2 (10:50→21:52)
[2020-11-07] MEDS: CEFUROXIME AXETIL 500 MG TABLET PO SCH ×2 (10:50→21:53)
[2020-11-07] MEDS: FUROSEMIDE 40 MG TABLET (FP) PO SCH (10:50)
[2020-11-07] MEDS: metoPROLOL SUCCINATE 25 MG TAB.SR.24H (FP) PO SCH (10:51)
[2020-11-07] MEDS: ATORVASTATIN CA 80 MG TABLET (FP) PO SCH (21:52)
[2020-11-08 08:50] LABS: BASO % 0.6 % (0-2.0); EOS % 0.7 % (0-4.5); HEMATOCRIT 39.7 % (35.4-49); HEMOGLOBIN 12.9 GM/dL (11.7-16.9); LYMPH % 15.9 % (8-40); MCH 29.3 pg (25.7-33.7); MCHC 32.5 g/dl (32.0-35.9); MEAN CELL VOLUME 90.2 fl (80-96); MEAN PLT VOLUME 10.3 fl (7.5-11.1); MONO % 12.6 % (3.8-10.2); NEUT % 70.2 % (42.8-82.8); PLATELET COUNT 194 K/MM3 (134-434); RDW 15.9 % (11.9-15.9); WHITE BLOOD COUNT 5.9 K/mm3 (4.0-10.0)
[2020-11-08 09:03] LABS: POTASSIUM 4.6 mmol/L (3.5-5.1)
[2020-11-08 09:12] LABS: ALBUMIN 3.1 g/dl (3.4-5.0); BLOOD UREA NITROGEN 44.4 mg/dL (7-18); CALCIUM 8.9 mg/dL (8.5-10.1); MAGNESIUM 1.9 mg/dL (1.8-2.4)
[2020-11-08 09:14] LABS: CREATININE 2.2 mg/dL (0.55-1.3)
[2020-11-08 09:16] LABS: BILIRUBIN,TOTAL 1.4 mg/dL (0.2-1); TOT PROT 6.8 g/dl (6.4-8.2)
[2020-11-08] MEDS ORDERED: PT OWN MED DRAWER 7, Y5N ONE ×2 (09:18→21:03)
[2020-11-08] MEDS: APIXABAN 2.5 MG TABLET PO SCH ×2 (09:26→21:12)
[2020-11-08] MEDS: metoPROLOL SUCCINATE 25 MG TAB.SR.24H (FP) PO SCH (09:26)
[2020-11-08] MEDS: ASPIRIN 81 MG CHEWABLE TABLETS PO SCH (09:26)
[2020-11-08] MEDS: THIAMINE HCL 100 MG TABLET (FP) PO SCH (09:27)
[2020-11-08] MEDS: PANTOPRAZOLE 40 MG TABLET PO SCH ×2 (09:27→21:12)
[2020-11-08] MEDS: ALLOPURINOL 300 MG TABLET (FP) PO SCH (09:27)
[2020-11-08] MEDS: MULTIVITAMINS (DAILY MVI) TABLET (FP) PO SCH (09:27)
[2020-11-08] MEDS: CEFUROXIME AXETIL 500 MG TABLET PO SCH ×2 (09:27→21:12)
[2020-11-08] MEDS: FUROSEMIDE 40 MG TABLET (FP) PO SCH (09:27)
[2020-11-08] MEDS: FOLIC ACID 1 MG TABLET (FP) PO SCH (09:27)
[2020-11-08] MEDS: ISOSORBIDE MONONITRATE 30 MG TAB.SR.24H (FP) PO SCH (10:07)
[2020-11-08] MEDS: hydrALAZINE HCL 25 MG TABLET (FP) PO SCH ×2 (10:07→21:12)
[2020-11-08 20:09] VITALS: BMI 21.5
[2020-11-08] MEDS: ATORVASTATIN CA 80 MG TABLET (FP) PO SCH (21:12)
[2020-11-09 08:46] LABS: BASO % 0.4 % (0-2.0); EOS % 0.8 % (0-4.5); HEMATOCRIT 42.5 % (35.4-49); HEMOGLOBIN 13.5 GM/dL (11.7-16.9); LYMPH % 17.9 % (8-40); MCH 29.1 pg (25.7-33.7); MCHC 31.7 g/dl (32.0-35.9); MEAN CELL VOLUME 91.7 fl (80-96); NEUT % 64.9 % (42.8-82.8); PLATELET COUNT 197 K/MM3 (134-434); RBC 4.64 M/mm3 (4.00-5.60); RDW 16.7 % (11.9-15.9); WHITE BLOOD COUNT 7.8 K/mm3 (4.0-10.0)
[2020-11-09] MEDS: FUROSEMIDE 40 MG TABLET (FP) PO SCH (09:02)
[2020-11-09] MEDS: PANTOPRAZOLE 40 MG TABLET PO SCH ×2 (09:02→21:36)
[2020-11-09] MEDS: ALLOPURINOL 300 MG TABLET (FP) PO SCH (09:02)
[2020-11-09] MEDS: ISOSORBIDE MONONITRATE 30 MG TAB.SR.24H (FP) PO SCH (09:02)
[2020-11-09] MEDS: ASPIRIN 81 MG CHEWABLE TABLETS PO SCH (09:02)
[2020-11-09] MEDS: APIXABAN 2.5 MG TABLET PO SCH ×2 (09:02→21:36)
[2020-11-09] MEDS: MULTIVITAMINS (DAILY MVI) TABLET (FP) PO SCH (09:02)
[2020-11-09] MEDS: metoPROLOL SUCCINATE 25 MG TAB.SR.24H (FP) PO SCH (09:02)
[2020-11-09] MEDS: FOLIC ACID 1 MG TABLET (FP) PO SCH (09:03)
[2020-11-09] MEDS: THIAMINE HCL 100 MG TABLET (FP) PO SCH (09:03)
[2020-11-09] MEDS: hydrALAZINE HCL 25 MG TABLET (FP) PO SCH ×2 (09:04→21:37)
[2020-11-09] MEDS: CEFUROXIME AXETIL 500 MG TABLET PO SCH ×2 (09:04→21:35)
[2020-11-09 09:09] LABS: POTASSIUM 4.7 mmol/L (3.5-5.1)
[2020-11-09 09:15] LABS: ALBUMIN 3.1 g/dl (3.4-5.0); CALCIUM 8.8 mg/dL (8.5-10.1)
[2020-11-09 09:16] LABS: MAGNESIUM 1.9 mg/dL (1.8-2.4)
[2020-11-09 09:17] LABS: CREATININE 2.2 mg/dL (0.55-1.3)
[2020-11-09 09:21] LABS: BILIRUBIN,TOTAL 1.5 mg/dL (0.2-1); TOT PROT 7.2 g/dl (6.4-8.2)
[2020-11-09] MEDS ORDERED: PT OWN MED DRAWER 7, Y5N ONE (21:11)
[2020-11-09] MEDS: ATORVASTATIN CA 80 MG TABLET (FP) PO SCH (21:36)
[2020-11-10 08:19] LABS: BASO % 0.6 % (0-2.0); EOS % 0.6 % (0-4.5); HEMATOCRIT 40.9 % (35.4-49); HEMOGLOBIN 13.3 GM/dL (11.7-16.9); LYMPH % 24.2 % (8-40); MCH 29.2 pg (25.7-33.7); MCHC 32.6 g/dl (32.0-35.9); MEAN CELL VOLUME 89.5 fl (80-96); MEAN PLT VOLUME 9.6 fl (7.5-11.1); NEUT % 64.6 % (42.8-82.8); PLATELET COUNT 214 K/MM3 (134-434); RBC 4.57 M/mm3 (4.00-5.60); RDW 16.5 % (11.9-15.9); WHITE BLOOD COUNT 6.6 K/mm3 (4.0-10.0)
[2020-11-10 08:45] LABS: ALBUMIN 3.2 g/dl (3.4-5.0); BLOOD UREA NITROGEN 41.6 mg/dL (7-18); CALCIUM 9.2 mg/dL (8.5-10.1)
[2020-11-10 08:50] LABS: BILIRUBIN,TOTAL 1.6 mg/dL (0.2-1); TOT PROT 7.2 g/dl (6.4-8.2)
[2020-11-10 09:11] LABS: CREATININE 2.2 mg/dL (0.55-1.3)
[2020-11-10] MEDS: PANTOPRAZOLE 40 MG TABLET PO SCH ×2 (09:16→21:00)
[2020-11-10] MEDS: APIXABAN 2.5 MG TABLET PO SCH ×2 (09:16→21:01)
[2020-11-10] MEDS: FUROSEMIDE 40 MG TABLET (FP) PO SCH (09:16)
[2020-11-10] MEDS: FOLIC ACID 1 MG TABLET (FP) PO SCH (09:16)
[2020-11-10] MEDS: MULTIVITAMINS (DAILY MVI) TABLET (FP) PO SCH (09:16)
[2020-11-10] MEDS: THIAMINE HCL 100 MG TABLET (FP) PO SCH (09:16)
[2020-11-10] MEDS: ASPIRIN 81 MG CHEWABLE TABLETS PO SCH (09:16)
[2020-11-10] MEDS: ISOSORBIDE MONONITRATE 30 MG TAB.SR.24H (FP) PO SCH (09:16)
[2020-11-10] MEDS: ALLOPURINOL 300 MG TABLET (FP) PO SCH (09:16)
[2020-11-10] MEDS: hydrALAZINE HCL 25 MG TABLET (FP) PO SCH (09:18)
[2020-11-10] MEDS: metoPROLOL SUCCINATE 25 MG TAB.SR.24H (FP) PO SCH (09:18)
[2020-11-10] MEDS: CEFUROXIME AXETIL 500 MG TABLET PO SCH ×2 (09:21→21:48)
[2020-11-10 20:23] VITALS: BP 105/73; PULSE 113; TEMP 97.5
[2020-11-10] MEDS ORDERED: PT OWN MED DRAWER 7, Y5N ONE (20:59)
[2020-11-10] MEDS: ATORVASTATIN CA 80 MG TABLET (FP) PO SCH (21:01)
== END 2020-11-10 23:30 | DRG 291 ==
LOC: JER 13:59 → JERBED 16:45 → FM/S 10-27 18:39 → J4W 10-30 17:26
PROVIDERS: ADMIT Family Medicine; ATTEND Nurse Practitioner Family
DX: I13.0 Hypertensive heart and chronic kidney disease with heart failure and stage 1 through stage 4 chronic kidney disease, or unspecified chronic kidney disease (principal); I50.43 Acute on chronic combined systolic (congestive) and diastolic (congestive) heart failure; J96.00 Acute respiratory failure, unspecified whether with hypoxia or hypercapnia; N17.9 Acute kidney failure, unspecified; J98.11 Atelectasis; I48.92 Unspecified atrial flutter; N18.9 Chronic kidney disease, unspecified; I25.10 Atherosclerotic heart disease of native coronary artery without angina pectoris; E78.5 Hyperlipidemia, unspecified; J44.9 Chronic obstructive pulmonary disease, unspecified; I25.5 Ischemic cardiomyopathy; E87.5 Hyperkalemia; F10.10 Alcohol abuse, uncomplicated; D69.6 Thrombocytopenia, unspecified; M10.9 Gout, unspecified; I42.0 Dilated cardiomyopathy; F17.210 Nicotine dependence, cigarettes, uncomplicated; R22.2 Localized swelling, mass and lump, trunk; E83.42 Hypomagnesemia; R31.9 Hematuria, unspecified; E87.6 Hypokalemia; D64.9 Anemia, unspecified; I27.20 Pulmonary hypertension, unspecified; Z91.14 Patient's other noncompliance with medication regimen; Z95.2 Presence of prosthetic heart valve; Z95.1 Presence of aortocoronary bypass graft; Z95.5 Presence of coronary angioplasty implant and graft; Z86.73 Personal history of transient ischemic attack (TIA), and cerebral infarction without residual deficits
CPT/HCPCS: 36415; 71045-TC-FY; 71250-TC; 74176-TC; 76775-TC; 80053; 80061; 81003; 82550; 82553; 82565; 83036; 83605; 83721; 83735; 83880; 84100; 84156; 84300; 84443; 84484; 84540; 85025; 85610; 85730; 87086; 93005; 93010; 93306-TC; 94761; 97116-GP; 97161-GP; 99285-25; C9803; G0008; J1644; Q2036; Q9967; U0003

== ENCOUNTER 2020-12-02 14:16 | Inpatient (IN) | payer OTHER ==
[2020-12-02 15:47] LABS: EOS % 0.9 % (0-4.5); HEMATOCRIT 40.5 % (35.4-49); HEMOGLOBIN 12.8 GM/dL (11.7-16.9); LYMPH % 15.7 % (8-40); MCH 27.7 pg (25.7-33.7); MCHC 31.6 g/dl (32.0-35.9); MEAN CELL VOLUME 87.6 fl (80-96); MEAN PLT VOLUME 9.5 fl (7.5-11.1); MONO % 17.2 % (3.8-10.2); NEUT % 64.2 % (42.8-82.8); PLATELET COUNT 156 K/MM3 (134-434); RBC 4.62 M/mm3 (4.00-5.60); RDW 17.8 % (11.9-15.9); WHITE BLOOD COUNT 6.4 K/mm3 (4.0-10.0)
[2020-12-02 15:59] LABS: INR 2.2 (0.83-1.09)
[2020-12-02 16:01] LABS: ACTIVATED PTT 35.9 SECONDS (25.2-36.5)
[2020-12-02 16:12] LABS: CALCIUM 8.4 mg/dL (8.5-10.1)
[2020-12-02 16:13] LABS: ALBUMIN 3.1 g/dl (3.4-5.0); BLOOD UREA NITROGEN 57.7 mg/dL (7-18); MAGNESIUM 2.2 mg/dL (1.8-2.4)
[2020-12-02 16:16] LABS: CREATININE 3.1 mg/dL (0.55-1.3)
[2020-12-02 16:18] LABS: BILIRUBIN,TOTAL 2.3 mg/dL (0.2-1); TOT PROT 7.6 g/dl (6.4-8.2)
[2020-12-02 16:21] LABS: N-TERMINAL BNP 17028.6 pg/ml (5-125)
[2020-12-02] MEDS ORDERED: FUROSEMIDE 40 MG/4 ML INJECTABLE VIAL IVPUSH ONE (16:25)
[2020-12-02] MEDS ORDERED: FUROSEMIDE 40 MG/4 ML INJECTABLE VIAL ONE (16:44)
[2020-12-02] MEDS ORDERED: VANCOMYCIN HCL 1,500 MG in DEXTROSE 5%-WATER - 500 ML IVPB ONE (17:09)
[2020-12-02] MEDS ORDERED: PIPERACILLIN/TAZOB 4.5 GM 4.5 GM/100 ML BAG IVPB ONE (17:20)
[2020-12-02] MEDS ORDERED: VANCOMYCIN PREMIX 1.5 GM 1,500 MG/300 ML BAG IVPB ONE (17:30)
[2020-12-02] MEDS: PIPERACILLIN/TAZOB 4.5 GM 4.5 GM in DEXTROSE 5%-WATER 100 ML IVPB SCH (17:34)
[2020-12-02 17:50] LABS: POTASSIUM 4.8 mmol/L (3.5-5.1)
[2020-12-02 17:52] LABS: ALBUMIN 2.8 g/dl (3.4-5.0); BLOOD UREA NITROGEN 55.6 mg/dL (7-18); CALCIUM 8.4 mg/dL (8.5-10.1); MAGNESIUM 2.1 mg/dL (1.8-2.4)
[2020-12-02 17:55] LABS: CREATININE 2.9 mg/dL (0.55-1.3)
[2020-12-02 17:57] LABS: BILIRUBIN,TOTAL 1.9 mg/dL (0.2-1); TOT PROT 6.8 g/dl (6.4-8.2)
[2020-12-02 18:00] LABS: LACTIC ACID 2.5 mmol/L (0.4-2.0)
[2020-12-02] MEDS ORDERED: PIPERACILLIN/TAZOB 4.5 GM 4.5 GM in DEXTROSE 5%-WATER 100 ML IVPB SCH (18:00)
[2020-12-02] MEDS ORDERED: ALBUTEROL SO4 HFA INHALER IH PRN (20:41)
[2020-12-02] MEDS ORDERED: hydrALAZINE HCL 25 MG TABLET (FP) PO SCH (22:00)
[2020-12-02] MEDS: ATORVASTATIN CA 40 MG TABLET (FP) PO SCH (23:29)
[2020-12-02] MEDS: APIXABAN 2.5 MG TABLET PO SCH (23:29)
[2020-12-03] MEDS: PIPERACILLIN/TAZOB 4.5 GM 4.5 GM in DEXTROSE 5%-WATER 100 ML IVPB SCH ×2 (02:30→09:46)
[2020-12-03] MEDS ORDERED: DEXTROSE 5%-WATER 100 ML IVPB ONE ×2 (05:02→09:32)
[2020-12-03] MEDS ORDERED: PIPERACILLIN/TAZOBACTAM 4.5 GM VIAL IVPB ONE ×2 (05:02→09:32)
[2020-12-03 08:04] LABS: BASO % 0.3 % (0-2.0); EOS % 0.3 % (0-4.5); HEMATOCRIT 38.8 % (35.4-49); HEMOGLOBIN 12.6 GM/dL (11.7-16.9); LYMPH % 2.2 % (8-40); MCH 28.2 pg (25.7-33.7); MCHC 32.6 g/dl (32.0-35.9); MEAN CELL VOLUME 86.7 fl (80-96); MEAN PLT VOLUME 9.1 fl (7.5-11.1); MONO % 5.3 % (3.8-10.2); NEUT % 91.9 % (42.8-82.8); PLATELET COUNT 146 K/MM3 (134-434); RBC 4.47 M/mm3 (4.00-5.60); RDW 17.5 % (11.9-15.9); WHITE BLOOD COUNT 12.5 K/mm3 (4.0-10.0)
[2020-12-03 08:23] LABS: POTASSIUM 4.5 mmol/L (3.5-5.1)
[2020-12-03 08:29] LABS: ALBUMIN 2.8 g/dl (3.4-5.0); BLOOD UREA NITROGEN 56.8 mg/dL (7-18); CALCIUM 8.2 mg/dL (8.5-10.1); MAGNESIUM 1.9 mg/dL (1.8-2.4)
[2020-12-03 08:33] LABS: CREATININE 3.2 mg/dL (0.55-1.3)
[2020-12-03 08:34] LABS: TOT PROT 6.8 g/dl (6.4-8.2)
[2020-12-03 08:40] LABS: LACTIC ACID 2.4 mmol/L (0.4-2.0)
[2020-12-03] MEDS: MULTIVITAMINS (DAILY MVI) TABLET (FP) PO SCH (09:46)
[2020-12-03] MEDS: PANTOPRAZOLE 40 MG TABLET PO SCH (09:51)
[2020-12-03] MEDS: APIXABAN 2.5 MG TABLET PO SCH ×2 (09:51→21:53)
[2020-12-03] MEDS: ASPIRIN 81 MG CHEWABLE TABLETS PO SCH (09:51)
[2020-12-03] MEDS ORDERED: ISOSORBIDE MONONITRATE 30 MG TAB.SR.24H (FP) PO SCH (10:00)
[2020-12-03] MEDS ORDERED: FUROSEMIDE 40 MG/4 ML INJECTABLE VIAL IVPUSH SCH (10:00)
[2020-12-03 11:11] LABS: ANISOCYTOSIS 1+; MACROCYTOSIS 0; PLATELET ESTIMATE DECREASED; TARGET CELLS 1+
[2020-12-03] MEDS: metoPROLOL SUCCINATE 25 MG TAB.SR.24H (FP) PO SCH (11:58)
[2020-12-03] MEDS ORDERED: DEXTROSE 5%-WATER - 50 ML IVPB ONE ×2 (14:18→20:26)
[2020-12-03] MEDS ORDERED: PIPERACILLIN/TAZOBACTAM 2.25 GM VIAL IVPB ONE ×2 (14:18→20:26)
[2020-12-03] MEDS ORDERED: FUROSEMIDE 40 MG/4 ML INJECTABLE VIAL ONE (14:18)
[2020-12-03] MEDS: PIPERACILLIN/TAZOB 2.25 GM 2.25 GM in DEXTROSE 5%-WATER - 50 ML IVPB SCH ×2 (14:45→20:35)
[2020-12-03] MEDS: FUROSEMIDE 40 MG/4 ML INJECTABLE VIAL IVPUSH SCH (14:45)
[2020-12-03] MEDS ORDERED: INSULIN (NOVOLOG) ASPART 100 UNITS/ML 10ML VIAL ONE (21:37)
[2020-12-03] MEDS: ATORVASTATIN CA 40 MG TABLET (FP) PO SCH (21:53)
[2020-12-04] MEDS ORDERED: PIPERACILLIN/TAZOBACTAM 2.25 GM VIAL IVPB ONE ×3 (03:20→15:44)
[2020-12-04] MEDS ORDERED: DEXTROSE 5%-WATER - 50 ML IVPB ONE ×3 (03:20→15:44)
[2020-12-04] MEDS: PIPERACILLIN/TAZOB 2.25 GM 2.25 GM in DEXTROSE 5%-WATER - 50 ML IVPB SCH ×3 (03:23→15:47)
[2020-12-04] MEDS: FUROSEMIDE 40 MG/4 ML INJECTABLE VIAL IVPUSH SCH ×2 (06:05→14:34)
[2020-12-04] MEDS: APIXABAN 2.5 MG TABLET PO SCH ×2 (10:03→21:15)
[2020-12-04] MEDS: metoPROLOL SUCCINATE 25 MG TAB.SR.24H (FP) PO SCH (10:03)
[2020-12-04] MEDS: PANTOPRAZOLE 40 MG TABLET PO SCH (10:03)
[2020-12-04] MEDS: ASPIRIN 81 MG CHEWABLE TABLETS PO SCH (10:03)
[2020-12-04] MEDS: MULTIVITAMINS (DAILY MVI) TABLET (FP) PO SCH (10:03)
[2020-12-04] MEDS: ALBUTEROL SO4 2.5/IPRATROPIUM 0.5 INH SOL 3 ML VIAL.NEB. NEB SCH ×3 (12:26→20:00)
[2020-12-04 14:25] LABS: BASO % 0.2 % (0-2.0); EOS % 1.5 % (0-4.5); HEMATOCRIT 39.5 % (35.4-49); HEMOGLOBIN 12.8 GM/dL (11.7-16.9); LYMPH % 9.5 % (8-40); MCHC 32.3 g/dl (32.0-35.9); MEAN CELL VOLUME 86.7 fl (80-96); MEAN PLT VOLUME 9.3 fl (7.5-11.1); MONO % 13.4 % (3.8-10.2); NEUT % 75.4 % (42.8-82.8); PLATELET COUNT 140 K/MM3 (134-434); RBC 4.56 M/mm3 (4.00-5.60); RDW 17.7 % (11.9-15.9); WHITE BLOOD COUNT 6.6 K/mm3 (4.0-10.0)
[2020-12-04 14:30] LABS: POTASSIUM 4.5 mmol/L (3.5-5.1)
[2020-12-04 14:32] LABS: CALCIUM 7.8 mg/dL (8.5-10.1)
[2020-12-04 14:33] LABS: ALBUMIN 2.8 g/dl (3.4-5.0); BLOOD UREA NITROGEN 66.2 mg/dL (7-18)
[2020-12-04 14:36] LABS: CREATININE 4.2 mg/dL (0.55-1.3)
[2020-12-04 14:37] LABS: BILIRUBIN,TOTAL 2.5 mg/dL (0.2-1)
[2020-12-04 14:38] LABS: TOT PROT 7.2 g/dl (6.4-8.2)
[2020-12-04] MEDS ORDERED: SODIUM BICARBONATE 8.4% 50 MEQ/50 ML DISP.SYRIN IVPUSH ONE (16:09)
[2020-12-04] MEDS: SODIUM BICARBONATE 650 MG TABLET PO SCH ×2 (18:40→21:14)
[2020-12-04] MEDS: ATORVASTATIN CA 40 MG TABLET (FP) PO SCH (21:14)
[2020-12-05] MEDS ORDERED: MAGNESIUM SULF 50% (8.12 MEQ/2 ML-1 GM VIAL) IVPB ONE (03:15)
[2020-12-05 04:53] LABS: EPI CELLS 4 /uL (0-25.1); HYALINE CASTS 1 /uL (0-3.1); URINE APPEARANCE CLOUDY; URINE BACTERIA 24 /uL (0-1359); URINE BILIRUBIN NEGATIVE (NEGATIVE); URINE COLOR YELLOW; URINE GLUCOSE (UA) NEGATIVE (NEGATIVE); URINE KETONE NEGATIVE (NEGATIVE); URINE LEUK ESTERASE TRACE (NEGATIVE); URINE NITRITE NEGATIVE (NEGATIVE); URINE PROTEIN 2+ (NEGATIVE); URINE RBC 2780 /uL (0-23.9); URINE UROBILINOGEN 0.2 mg/dL (0.2-1.0); URINE WBC 22 /uL (0-25.8)
[2020-12-05] MEDS: FUROSEMIDE 40 MG/4 ML INJECTABLE VIAL IVPUSH SCH ×2 (05:09→14:38)
[2020-12-05] MEDS: SODIUM BICARBONATE 650 MG TABLET PO SCH ×3 (05:09→21:17)
[2020-12-05] MEDS: ALBUTEROL SO4 2.5/IPRATROPIUM 0.5 INH SOL 3 ML VIAL.NEB. NEB SCH ×4 (07:15→20:10)
[2020-12-05 07:46] LABS: BASO % 0.2 % (0-2.0); EOS % 1.7 % (0-4.5); HEMATOCRIT 39.4 % (35.4-49); HEMOGLOBIN 12.9 GM/dL (11.7-16.9); LYMPH % 11.7 % (8-40); MCH 28.2 pg (25.7-33.7); MCHC 32.8 g/dl (32.0-35.9); MEAN PLT VOLUME 10.7 fl (7.5-11.1); MONO % 13.1 % (3.8-10.2); NEUT % 73.3 % (42.8-82.8); PLATELET COUNT 149 K/MM3 (134-434); RBC 4.58 M/mm3 (4.00-5.60); RDW 17.9 % (11.9-15.9); WHITE BLOOD COUNT 6.1 K/mm3 (4.0-10.0)
[2020-12-05 07:56] LABS: POTASSIUM 4.1 mmol/L (3.5-5.1)
[2020-12-05 08:00] LABS: ALBUMIN 2.7 g/dl (3.4-5.0); BLOOD UREA NITROGEN 68.4 mg/dL (7-18); CALCIUM 7.8 mg/dL (8.5-10.1)
[2020-12-05 08:04] LABS: CREATININE 4.4 mg/dL (0.55-1.3)
[2020-12-05 08:05] LABS: BILIRUBIN,TOTAL 2.4 mg/dL (0.2-1)
[2020-12-05] MEDS: PANTOPRAZOLE 40 MG TABLET PO SCH (09:31)
[2020-12-05] MEDS: metoPROLOL SUCCINATE 25 MG TAB.SR.24H (FP) PO SCH (09:31)
[2020-12-05] MEDS: APIXABAN 2.5 MG TABLET PO SCH ×2 (09:31→21:17)
[2020-12-05] MEDS: ASPIRIN 81 MG CHEWABLE TABLETS PO SCH (09:31)
[2020-12-05] MEDS: MULTIVITAMINS (DAILY MVI) TABLET (FP) PO SCH (09:32)
[2020-12-05 12:00] LABS: LACTIC ACID 5.4 mmol/L (0.4-2.0)
[2020-12-05] MEDS ORDERED: diphenhydrAMINE HCL 25 MG CAPSULE (FP) PO ONE (19:35)
[2020-12-06] MEDS: FUROSEMIDE 40 MG/4 ML INJECTABLE VIAL IVPUSH SCH ×2 (06:09→14:54)
[2020-12-06] MEDS: SODIUM BICARBONATE 650 MG TABLET PO SCH ×3 (06:12→21:43)
[2020-12-06] MEDS: ALBUTEROL SO4 2.5/IPRATROPIUM 0.5 INH SOL 3 ML VIAL.NEB. NEB SCH ×4 (07:25→20:05)
[2020-12-06 08:08] LABS: BASO % 0.3 % (0-2.0); EOS % 1.6 % (0-4.5); HEMATOCRIT 40.7 % (35.4-49); HEMOGLOBIN 13.1 GM/dL (11.7-16.9); MCHC 32.3 g/dl (32.0-35.9); MEAN CELL VOLUME 86.7 fl (80-96); MEAN PLT VOLUME 9.7 fl (7.5-11.1); MONO % 16.7 % (3.8-10.2); NEUT % 67.4 % (42.8-82.8); PLATELET COUNT 125 K/MM3 (134-434); RBC 4.69 M/mm3 (4.00-5.60); RDW 17.9 % (11.9-15.9); WHITE BLOOD COUNT 6.2 K/mm3 (4.0-10.0)
[2020-12-06 08:26] LABS: POTASSIUM 4.4 mmol/L (3.5-5.1)
[2020-12-06 08:29] LABS: ALBUMIN 2.7 g/dl (3.4-5.0)
[2020-12-06 08:30] LABS: BLOOD UREA NITROGEN 75.7 mg/dL (7-18)
[2020-12-06 08:33] LABS: BILIRUBIN,TOTAL 2.5 mg/dL (0.2-1); CREATININE 4.5 mg/dL (0.55-1.3); TOT PROT 6.9 g/dl (6.4-8.2)
[2020-12-06] MEDS: APIXABAN 2.5 MG TABLET PO SCH ×2 (10:14→21:42)
[2020-12-06] MEDS: metoPROLOL SUCCINATE 25 MG TAB.SR.24H (FP) PO SCH (10:14)
[2020-12-06] MEDS: ASPIRIN 81 MG CHEWABLE TABLETS PO SCH (10:14)
[2020-12-06] MEDS: MULTIVITAMINS (DAILY MVI) TABLET (FP) PO SCH (10:14)
[2020-12-06] MEDS: PANTOPRAZOLE 40 MG TABLET PO SCH (10:15)
[2020-12-06 10:39] LABS: ANISOCYTOSIS 0; HELMET CELLS 0; HOWELL-JOLLY BODIES 0; MACROCYTOSIS 0; OVALOCYTE 0; PLATELET ESTIMATE DECREASED; ROULEAU 0; SICKELED CELLS 0; TARGET CELLS 0; TEAR DROP CELLS 0; TOXIC GRANULATION 0
[2020-12-06 14:47] LABS: ARTERIAL BLD GAS O2 SATURATION 96.9 mmHg (95-98); ARTERIAL BLOOD GAS BASE EXCESS -10.2 mmol/L (-2-2); ARTERIAL BLOOD GAS PO2 91.3 mmHg (80-100); ARTERIAL BLOOD GAS pH 7.367 (7.350-7.450)
[2020-12-06 14:54] LABS: ALLENS TEST POSITIVE
[2020-12-06] MEDS: guaiFENesin/CODEINE 5 ML UNIT-DOSE CUPS PO PRN (21:42)
[2020-12-07] MEDS: FUROSEMIDE 40 MG/4 ML INJECTABLE VIAL IVPUSH SCH ×2 (05:25→14:36)
[2020-12-07] MEDS: ALBUTEROL SO4 2.5/IPRATROPIUM 0.5 INH SOL 3 ML VIAL.NEB. NEB SCH ×4 (07:35→20:05)
[2020-12-07 07:57] LABS: BASO % 0.5 % (0-2.0); EOS % 1.5 % (0-4.5); HEMOGLOBIN 12.1 GM/dL (11.7-16.9); LYMPH % 15.6 % (8-40); MCH 28.1 pg (25.7-33.7); MCHC 32.8 g/dl (32.0-35.9); MEAN CELL VOLUME 85.8 fl (80-96); MEAN PLT VOLUME 9.9 fl (7.5-11.1); MONO % 20.2 % (3.8-10.2); NEUT % 62.2 % (42.8-82.8); PLATELET COUNT 127 K/MM3 (134-434); RBC 4.31 M/mm3 (4.00-5.60); RDW 17.7 % (11.9-15.9); WHITE BLOOD COUNT 5.9 K/mm3 (4.0-10.0)
[2020-12-07 08:13] LABS: POTASSIUM 3.8 mmol/L (3.5-5.1)
[2020-12-07 08:23] LABS: CALCIUM 8.4 mg/dL (8.5-10.1)
[2020-12-07 08:24] LABS: ALBUMIN 2.5 g/dl (3.4-5.0); BLOOD UREA NITROGEN 75.3 mg/dL (7-18)
[2020-12-07 08:26] LABS: CREATININE 3.9 mg/dL (0.55-1.3)
[2020-12-07 08:28] LABS: BILIRUBIN,TOTAL 2.8 mg/dL (0.2-1); TOT PROT 6.3 g/dl (6.4-8.2)
[2020-12-07] MEDS: SODIUM BICARBONATE 650 MG TABLET PO SCH ×2 (10:00→21:21)
[2020-12-07] MEDS: PANTOPRAZOLE 40 MG TABLET PO SCH (10:00)
[2020-12-07] MEDS: ASPIRIN 81 MG CHEWABLE TABLETS PO SCH (10:00)
[2020-12-07] MEDS: APIXABAN 2.5 MG TABLET PO SCH ×2 (10:00→21:21)
[2020-12-07] MEDS: MULTIVITAMINS (DAILY MVI) TABLET (FP) PO SCH (10:00)
[2020-12-07] MEDS: metoPROLOL SUCCINATE 25 MG TAB.SR.24H (FP) PO SCH (10:01)
[2020-12-07 11:03] LABS: ANISOCYTOSIS 0; HELMET CELLS 0; HOWELL-JOLLY BODIES 0; MACROCYTOSIS 0; OVALOCYTE 0; PLATELET ESTIMATE DECREASED; ROULEAU 0; SICKELED CELLS 0; TARGET CELLS 0; TEAR DROP CELLS 0; TOXIC GRANULATION 0
[2020-12-07 14:16] LABS: LACTIC ACID 3.4 mmol/L (0.4-2.0)
[2020-12-08] MEDS: guaiFENesin/CODEINE 5 ML UNIT-DOSE CUPS PO PRN ×2 (02:51→23:29)
[2020-12-08] MEDS: FUROSEMIDE 40 MG/4 ML INJECTABLE VIAL IVPUSH SCH ×2 (05:32→17:17)
[2020-12-08 07:29] LABS: BASO % 1.3 % (0-2.0); EOS % 1.8 % (0-4.5); HEMATOCRIT 37.2 % (35.4-49); HEMOGLOBIN 12.3 GM/dL (11.7-16.9); MEAN CELL VOLUME 84.9 fl (80-96); MEAN PLT VOLUME 9.2 fl (7.5-11.1); MONO % 14.4 % (3.8-10.2); NEUT % 66.5 % (42.8-82.8); PLATELET COUNT 145 K/MM3 (134-434); RBC 4.39 M/mm3 (4.00-5.60); RDW 17.6 % (11.9-15.9); WHITE BLOOD COUNT 6.4 K/mm3 (4.0-10.0)
[2020-12-08 07:45] LABS: POTASSIUM 3.5 mmol/L (3.5-5.1)
[2020-12-08 07:46] LABS: ALBUMIN 2.5 g/dl (3.4-5.0); BLOOD UREA NITROGEN 61.7 mg/dL (7-18); CALCIUM 8.2 mg/dL (8.5-10.1)
[2020-12-08 07:49] LABS: CREATININE 3.2 mg/dL (0.55-1.3)
[2020-12-08 07:52] LABS: BILIRUBIN,TOTAL 2.8 mg/dL (0.2-1); TOT PROT 6.5 g/dl (6.4-8.2)
[2020-12-08] MEDS: ALBUTEROL SO4 2.5/IPRATROPIUM 0.5 INH SOL 3 ML VIAL.NEB. NEB SCH ×4 (08:20→20:10)
[2020-12-08] MEDS: SODIUM BICARBONATE 650 MG TABLET PO SCH ×2 (09:33→21:01)
[2020-12-08] MEDS: PANTOPRAZOLE 40 MG TABLET PO SCH (09:34)
[2020-12-08] MEDS: metoPROLOL SUCCINATE 25 MG TAB.SR.24H (FP) PO SCH (09:34)
[2020-12-08] MEDS: MULTIVITAMINS (DAILY MVI) TABLET (FP) PO SCH (09:34)
[2020-12-08] MEDS: ASPIRIN 81 MG CHEWABLE TABLETS PO SCH (09:34)
[2020-12-08] MEDS: APIXABAN 2.5 MG TABLET PO SCH ×2 (09:34→21:01)
[2020-12-08] MEDS ORDERED: POLYETHYLENE GLYCOL 3350 119 GM BTL PO SCH (12:00)
[2020-12-08] MEDS ORDERED: POTASSIUM CHLORIDE TABS 20 MEQ TABLET.ER (FP) PO ONE (13:15)
[2020-12-08 14:09] LABS: HEP B CORE AB, TOT Negative (Negative)
[2020-12-09] MEDS: FUROSEMIDE 40 MG/4 ML INJECTABLE VIAL IVPUSH SCH ×2 (06:30→15:25)
[2020-12-09] MEDS: ALBUTEROL SO4 2.5/IPRATROPIUM 0.5 INH SOL 3 ML VIAL.NEB. NEB SCH ×4 (08:30→20:18)
[2020-12-09] MEDS: PANTOPRAZOLE 40 MG TABLET PO SCH (09:30)
[2020-12-09] MEDS: SODIUM BICARBONATE 650 MG TABLET PO SCH (09:31)
[2020-12-09] MEDS: MULTIVITAMINS (DAILY MVI) TABLET (FP) PO SCH (09:31)
[2020-12-09] MEDS: APIXABAN 2.5 MG TABLET PO SCH ×2 (09:31→21:08)
[2020-12-09] MEDS: metoPROLOL SUCCINATE 25 MG TAB.SR.24H (FP) PO SCH (09:31)
[2020-12-09] MEDS: ASPIRIN 81 MG CHEWABLE TABLETS PO SCH (09:32)
[2020-12-09 11:16] LABS: POTASSIUM 3.5 mmol/L (3.5-5.1)
[2020-12-09 11:20] LABS: BLOOD UREA NITROGEN 47.4 mg/dL (7-18); CALCIUM 8.5 mg/dL (8.5-10.1); CREATININE 2.5 mg/dL (0.55-1.3)
[2020-12-09] MEDS ORDERED: POTASSIUM CHLORIDE TABS 20 MEQ TABLET.ER (FP) PO ONE (14:00)
[2020-12-10] MEDS: FUROSEMIDE 40 MG/4 ML INJECTABLE VIAL IVPUSH SCH (06:01)
[2020-12-10 07:57] LABS: POTASSIUM 3.6 mmol/L (3.5-5.1)
[2020-12-10] MEDS: ALBUTEROL SO4 2.5/IPRATROPIUM 0.5 INH SOL 3 ML VIAL.NEB. NEB SCH ×4 (08:08→21:24)
[2020-12-10 08:14] LABS: ALBUMIN 2.6 g/dl (3.4-5.0); CALCIUM 8.1 mg/dL (8.5-10.1)
[2020-12-10 08:17] LABS: CREATININE 2.4 mg/dL (0.55-1.3)
[2020-12-10 08:18] LABS: TOT PROT 6.5 g/dl (6.4-8.2)
[2020-12-10 08:20] LABS: BILIRUBIN,TOTAL 3.6 mg/dL (0.2-1)
[2020-12-10] MEDS: ASPIRIN 81 MG CHEWABLE TABLETS PO SCH (09:25)
[2020-12-10] MEDS: PANTOPRAZOLE 40 MG TABLET PO SCH (09:25)
[2020-12-10] MEDS: APIXABAN 2.5 MG TABLET PO SCH ×2 (09:25→21:12)
[2020-12-10] MEDS: metoPROLOL SUCCINATE 25 MG TAB.SR.24H (FP) PO SCH (09:25)
[2020-12-10] MEDS: MULTIVITAMINS (DAILY MVI) TABLET (FP) PO SCH (09:25)
[2020-12-10] MEDS: FUROSEMIDE 40 MG/4 ML INJECTABLE VIAL IVPB SCH (14:12)
[2020-12-11] MEDS: FUROSEMIDE 40 MG/4 ML INJECTABLE VIAL IVPB SCH ×3 (05:26→14:53)
[2020-12-11 07:49] LABS: POTASSIUM 3.7 mmol/L (3.5-5.1)
[2020-12-11 07:55] LABS: BLOOD UREA NITROGEN 34.4 mg/dL (7-18)
[2020-12-11 07:58] LABS: CALCIUM 8.2 mg/dL (8.5-10.1)
[2020-12-11 07:59] LABS: CREATININE 2.1 mg/dL (0.55-1.3)
[2020-12-11] MEDS: ALBUTEROL SO4 2.5/IPRATROPIUM 0.5 INH SOL 3 ML VIAL.NEB. NEB SCH ×4 (08:14→20:24)
[2020-12-11] MEDS: PANTOPRAZOLE 40 MG TABLET PO SCH (09:44)
[2020-12-11] MEDS: MULTIVITAMINS (DAILY MVI) TABLET (FP) PO SCH (09:44)
[2020-12-11] MEDS: ASPIRIN 81 MG CHEWABLE TABLETS PO SCH (09:44)
[2020-12-11] MEDS: APIXABAN 2.5 MG TABLET PO SCH ×2 (09:44→21:14)
[2020-12-11] MEDS: metoPROLOL SUCCINATE 25 MG TAB.SR.24H (FP) PO SCH (10:00)
[2020-12-12] MEDS: FUROSEMIDE 40 MG/4 ML INJECTABLE VIAL IVPB SCH ×2 (05:29→14:36)
[2020-12-12 08:16] LABS: POTASSIUM 3.8 mmol/L (3.5-5.1)
[2020-12-12 08:26] LABS: CALCIUM 8.6 mg/dL (8.5-10.1)
[2020-12-12 08:27] LABS: ALBUMIN 2.7 g/dl (3.4-5.0)
[2020-12-12 08:29] LABS: BILIRUBIN,DIRECT 1.7 mg/dL (0.0-0.2)
[2020-12-12 08:30] LABS: CREATININE 2.1 mg/dL (0.55-1.3)
[2020-12-12] MEDS: ALBUTEROL SO4 2.5/IPRATROPIUM 0.5 INH SOL 3 ML VIAL.NEB. NEB SCH ×4 (08:30→19:35)
[2020-12-12 08:57] LABS: TOT PROT 7.1 g/dl (6.4-8.2)
[2020-12-12] MEDS: ASPIRIN 81 MG CHEWABLE TABLETS PO SCH (11:07)
[2020-12-12] MEDS: PANTOPRAZOLE 40 MG TABLET PO SCH (11:07)
[2020-12-12] MEDS: APIXABAN 2.5 MG TABLET PO SCH ×2 (11:07→21:59)
[2020-12-12] MEDS: MULTIVITAMINS (DAILY MVI) TABLET (FP) PO SCH (11:07)
[2020-12-12] MEDS: metoPROLOL SUCCINATE 25 MG TAB.SR.24H (FP) PO SCH (12:33)
[2020-12-12 17:20] LABS: MAGNESIUM 1.6 mg/dL (1.8-2.4)
[2020-12-12] MEDS ORDERED: MAGNESIUM OXIDE 400 MG TABLET (FP) PO ONE (17:26)
[2020-12-12] MEDS ORDERED: guaiFENesin 200 MG/10 ML 10 ML UNIT-DOSE CUPS PO PRN (17:26)
[2020-12-13] MEDS: FUROSEMIDE 40 MG/4 ML INJECTABLE VIAL IVPB SCH ×2 (05:57→13:57)
[2020-12-13] MEDS: ALBUTEROL SO4 2.5/IPRATROPIUM 0.5 INH SOL 3 ML VIAL.NEB. NEB SCH ×4 (07:50→22:15)
[2020-12-13 08:31] LABS: ALBUMIN 2.7 g/dl (3.4-5.0); BLOOD UREA NITROGEN 31.7 mg/dL (7-18); CALCIUM 8.5 mg/dL (8.5-10.1)
[2020-12-13 08:35] LABS: BILIRUBIN,TOTAL 3.4 mg/dL (0.2-1); TOT PROT 6.9 g/dl (6.4-8.2)
[2020-12-13] MEDS: ASPIRIN 81 MG CHEWABLE TABLETS PO SCH (11:01)
[2020-12-13] MEDS: APIXABAN 2.5 MG TABLET PO SCH ×2 (11:01→21:58)
[2020-12-13] MEDS: metoPROLOL SUCCINATE 25 MG TAB.SR.24H (FP) PO SCH (11:01)
[2020-12-13] MEDS: PANTOPRAZOLE 40 MG TABLET PO SCH (11:01)
[2020-12-13] MEDS: MULTIVITAMINS (DAILY MVI) TABLET (FP) PO SCH (11:01)
[2020-12-13] MEDS ORDERED: PT OWN MED DRAWER 7, Y5N ONE (11:16)
[2020-12-14] MEDS: FUROSEMIDE 40 MG/4 ML INJECTABLE VIAL IVPB SCH ×3 (06:59→14:55)
[2020-12-14] MEDS: ALBUTEROL SO4 2.5/IPRATROPIUM 0.5 INH SOL 3 ML VIAL.NEB. NEB SCH ×4 (07:20→20:35)
[2020-12-14 09:26] LABS: POTASSIUM 3.8 mmol/L (3.5-5.1)
[2020-12-14 09:35] LABS: BLOOD UREA NITROGEN 33.2 mg/dL (7-18); CALCIUM 8.6 mg/dL (8.5-10.1)
[2020-12-14 09:38] LABS: CREATININE 2.1 mg/dL (0.55-1.3)
[2020-12-14] MEDS: PANTOPRAZOLE 40 MG TABLET PO SCH (10:22)
[2020-12-14] MEDS: metoPROLOL SUCCINATE 25 MG TAB.SR.24H (FP) PO SCH ×2 (10:22→11:45)
[2020-12-14] MEDS: THIAMINE HCL 100 MG TABLET (FP) PO SCH (10:22)
[2020-12-14] MEDS: APIXABAN 2.5 MG TABLET PO SCH ×2 (10:22→21:05)
[2020-12-14] MEDS: ASPIRIN 81 MG CHEWABLE TABLETS PO SCH (10:22)
[2020-12-14] MEDS: MULTIVITAMINS (DAILY MVI) TABLET (FP) PO SCH (10:22)
[2020-12-15] MEDS: FUROSEMIDE 40 MG/4 ML INJECTABLE VIAL IVPB SCH ×2 (06:13→14:08)
[2020-12-15] MEDS: ALBUTEROL SO4 2.5/IPRATROPIUM 0.5 INH SOL 3 ML VIAL.NEB. NEB SCH ×4 (07:50→20:45)
[2020-12-15 08:33] LABS: HEMATOCRIT 42.9 % (35.4-49); MCH 28.3 pg (25.7-33.7); MCHC 32.7 g/dl (32.0-35.9); MEAN CELL VOLUME 86.6 fl (80-96); PLATELET COUNT 210 K/MM3 (134-434); RBC 4.95 M/mm3 (4.00-5.60); RDW 19.8 % (11.9-15.9); WHITE BLOOD COUNT 5.6 K/mm3 (4.0-10.0)
[2020-12-15 08:46] LABS: POTASSIUM 3.8 mmol/L (3.5-5.1)
[2020-12-15 09:00] LABS: CALCIUM 8.9 mg/dL (8.5-10.1)
[2020-12-15 09:01] LABS: BLOOD UREA NITROGEN 34.5 mg/dL (7-18)
[2020-12-15 09:04] LABS: CREATININE 2.1 mg/dL (0.55-1.3)
[2020-12-15] MEDS: THIAMINE HCL 100 MG TABLET (FP) PO SCH (09:24)
[2020-12-15] MEDS: PANTOPRAZOLE 40 MG TABLET PO SCH (09:24)
[2020-12-15] MEDS: MULTIVITAMINS (DAILY MVI) TABLET (FP) PO SCH (09:24)
[2020-12-15] MEDS: ASPIRIN 81 MG CHEWABLE TABLETS PO SCH (09:25)
[2020-12-15] MEDS: metoPROLOL SUCCINATE 25 MG TAB.SR.24H (FP) PO SCH (09:25)
[2020-12-15] MEDS: APIXABAN 2.5 MG TABLET PO SCH ×2 (09:25→21:20)
[2020-12-15] MEDS ORDERED: metoPROLOL SUCCINATE 25 MG TAB.SR.24H (FP) PO SCH (10:00)
[2020-12-15 15:27] VITALS: BMI 22.1
[2020-12-15] MEDS ORDERED: PT OWN MED DRAWER 7, Y5N ONE (15:39)
[2020-12-15] MEDS ORDERED: ACETAMINOPHEN 325 MG TABLET (FP) PO ONE (21:10)
[2020-12-16] MEDS: FUROSEMIDE 40 MG/4 ML INJECTABLE VIAL IVPB SCH (05:24)
[2020-12-16] MEDS: ALBUTEROL SO4 2.5/IPRATROPIUM 0.5 INH SOL 3 ML VIAL.NEB. NEB SCH ×4 (07:35→19:40)
[2020-12-16] MEDS: PANTOPRAZOLE 40 MG TABLET PO SCH (09:38)
[2020-12-16] MEDS: MULTIVITAMINS (DAILY MVI) TABLET (FP) PO SCH (09:38)
[2020-12-16] MEDS: THIAMINE HCL 100 MG TABLET (FP) PO SCH (09:38)
[2020-12-16] MEDS: metoPROLOL SUCCINATE 25 MG TAB.SR.24H (FP) PO SCH (09:39)
[2020-12-16] MEDS: APIXABAN 2.5 MG TABLET PO SCH ×2 (09:39→21:39)
[2020-12-16] MEDS: ASPIRIN 81 MG CHEWABLE TABLETS PO SCH (09:39)
[2020-12-16] MEDS ORDERED: FUROSEMIDE 40 MG/4 ML INJECTABLE VIAL IVPB SCH (10:45)
[2020-12-16 11:48] LABS: CALCIUM 9.1 mg/dL (8.5-10.1)
[2020-12-16 11:49] LABS: ALBUMIN 3.1 g/dl (3.4-5.0); BLOOD UREA NITROGEN 35.2 mg/dL (7-18)
[2020-12-16 11:52] LABS: CREATININE 1.9 mg/dL (0.55-1.3)
[2020-12-16 11:53] LABS: BILIRUBIN,TOTAL 2.5 mg/dL (0.2-1)
[2020-12-16 11:54] LABS: TOT PROT 7.8 g/dl (6.4-8.2)
[2020-12-16] MEDS: FUROSEMIDE 40 MG TABLET (FP) PO SCH (15:43)
[2020-12-16] MEDS ORDERED: ACETAMINOPHEN 325 MG TABLET (FP) PO ONE (21:08)
[2020-12-16 22:48] LABS: MAGNESIUM 1.6 mg/dL (1.8-2.4); PHOSPHOROUS 3.7 mg/dL (2.5-4.9)
[2020-12-17] MEDS: FUROSEMIDE 40 MG TABLET (FP) PO SCH ×2 (06:22→14:10)
[2020-12-17 07:43] LABS: POTASSIUM 4.1 mmol/L (3.5-5.1)
[2020-12-17] MEDS: ALBUTEROL SO4 2.5/IPRATROPIUM 0.5 INH SOL 3 ML VIAL.NEB. NEB SCH ×4 (08:04→20:50)
[2020-12-17 08:10] LABS: BLOOD UREA NITROGEN 36.9 mg/dL (7-18); CALCIUM 9.2 mg/dL (8.5-10.1)
[2020-12-17 08:13] LABS: CREATININE 1.9 mg/dL (0.55-1.3)
[2020-12-17 08:14] LABS: BILIRUBIN,TOTAL 2.5 mg/dL (0.2-1)
[2020-12-17 08:15] LABS: TOT PROT 7.8 g/dl (6.4-8.2)
[2020-12-17] MEDS: ASPIRIN 81 MG CHEWABLE TABLETS PO SCH (09:25)
[2020-12-17] MEDS: MULTIVITAMINS (DAILY MVI) TABLET (FP) PO SCH (09:25)
[2020-12-17] MEDS: PANTOPRAZOLE 40 MG TABLET PO SCH (09:25)
[2020-12-17] MEDS: THIAMINE HCL 100 MG TABLET (FP) PO SCH (09:25)
[2020-12-17] MEDS: APIXABAN 2.5 MG TABLET PO SCH ×2 (09:25→22:59)
[2020-12-17] MEDS: metoPROLOL SUCCINATE 25 MG TAB.SR.24H (FP) PO SCH (09:26)
[2020-12-17] MEDS ORDERED: ACETAMINOPHEN 325 MG TABLET (FP) ONE (12:00)
[2020-12-17] MEDS ORDERED: ACETAMINOPHEN 325 MG TABLET (FP) PO ONE ×2 (18:45→20:45)
[2020-12-17] MEDS ORDERED: MELATONIN 5 MG TABLETS PO PRN (23:24)
[2020-12-18] MEDS: FUROSEMIDE 40 MG TABLET (FP) PO SCH (06:57)
[2020-12-18] MEDS: ALBUTEROL SO4 2.5/IPRATROPIUM 0.5 INH SOL 3 ML VIAL.NEB. NEB SCH ×4 (08:01→20:10)
[2020-12-18 08:16] LABS: POTASSIUM 4.3 mmol/L (3.5-5.1)
[2020-12-18 08:27] LABS: ALBUMIN 2.9 g/dl (3.4-5.0); BLOOD UREA NITROGEN 37.7 mg/dL (7-18)
[2020-12-18 08:29] LABS: CREATININE 1.8 mg/dL (0.55-1.3)
[2020-12-18 08:31] LABS: BILIRUBIN,TOTAL 2.2 mg/dL (0.2-1)
[2020-12-18 08:32] LABS: TOT PROT 7.2 g/dl (6.4-8.2)
[2020-12-18] MEDS: metoPROLOL SUCCINATE 25 MG TAB.SR.24H (FP) PO SCH ×2 (10:21→10:26)
[2020-12-18] MEDS: THIAMINE HCL 100 MG TABLET (FP) PO SCH (10:21)
[2020-12-18] MEDS: APIXABAN 2.5 MG TABLET PO SCH ×2 (10:21→22:58)
[2020-12-18] MEDS: MULTIVITAMINS (DAILY MVI) TABLET (FP) PO SCH (10:21)
[2020-12-18] MEDS: PANTOPRAZOLE 40 MG TABLET PO SCH (10:21)
[2020-12-18] MEDS: ASPIRIN 81 MG CHEWABLE TABLETS PO SCH (10:21)
[2020-12-18] MEDS ORDERED: FUROSEMIDE 40 MG TABLET (FP) PO SCH (11:53)
[2020-12-18] MEDS ORDERED: metoPROLOL SUCCINATE 25 MG TAB.SR.24H (FP) PO SCH (11:54)
[2020-12-19] MEDS: FUROSEMIDE 40 MG/4 ML INJECTABLE VIAL IVPB SCH ×2 (06:57→14:33)
[2020-12-19] MEDS: ALBUTEROL SO4 2.5/IPRATROPIUM 0.5 INH SOL 3 ML VIAL.NEB. NEB SCH ×3 (07:40→15:19)
[2020-12-19] MEDS: ASPIRIN 81 MG CHEWABLE TABLETS PO SCH (10:15)
[2020-12-19] MEDS: MULTIVITAMINS (DAILY MVI) TABLET (FP) PO SCH (10:15)
[2020-12-19] MEDS: APIXABAN 2.5 MG TABLET PO SCH (10:16)
[2020-12-19] MEDS: THIAMINE HCL 100 MG TABLET (FP) PO SCH (10:16)
[2020-12-19] MEDS: PANTOPRAZOLE 40 MG TABLET PO SCH (10:16)
[2020-12-19 15:48] VITALS: BP 109/71; PULSE 110; TEMP 97.9
== END 2020-12-19 17:47 | DRG 291 ==
LOC: JER 14:16 → JERBED 19:21 → J4W 21:58 → UNDODISIN 12-04 17:20 → J4W 12-09 01:02
PROVIDERS: ADMIT Internal Medicine; ATTEND Family Medicine
DX: I13.0 Hypertensive heart and chronic kidney disease with heart failure and stage 1 through stage 4 chronic kidney disease, or unspecified chronic kidney disease (principal); I50.23 Acute on chronic systolic (congestive) heart failure; J18.9 Pneumonia, unspecified organism; J96.91 Respiratory failure, unspecified with hypoxia; A41.89 Other specified sepsis; N17.9 Acute kidney failure, unspecified; E87.2 Acidosis; I48.92 Unspecified atrial flutter; E87.1 Hypo-osmolality and hyponatremia; E78.5 Hyperlipidemia, unspecified; I25.10 Atherosclerotic heart disease of native coronary artery without angina pectoris; J44.9 Chronic obstructive pulmonary disease, unspecified; M10.9 Gout, unspecified; N18.9 Chronic kidney disease, unspecified; F10.10 Alcohol abuse, uncomplicated; D64.9 Anemia, unspecified; F32.9 Major depressive disorder, single episode, unspecified; I25.5 Ischemic cardiomyopathy; R94.5 Abnormal results of liver function studies; F17.210 Nicotine dependence, cigarettes, uncomplicated; R26.9 Unspecified abnormalities of gait and mobility; K76.0 Fatty (change of) liver, not elsewhere classified; I27.20 Pulmonary hypertension, unspecified; E87.5 Hyperkalemia; Z95.3 Presence of xenogenic heart valve; Z95.5 Presence of coronary angioplasty implant and graft; Z95.1 Presence of aortocoronary bypass graft
CPT/HCPCS: 36415; 36600; 71045-TC-FY; 71250-TC; 76705-TC; 80048; 80053; 80076; 81003; 82550; 82553; 82803; 83605; 83735; 83880; 84100; 84484; 85025; 85027; 85610; 85730; 86704; 86706; 86707; 86708; 86709; 86803; 87040; 87205; 87340; 93005; 93010; 94640; 94660; 94761; 97116-GP; 97162-GP; 99285-25; C9803; U0003; U0005

== ENCOUNTER 2021-01-08 15:47 | Inpatient (IN) | payer OTHER ==
[2021-01-08] MEDS ORDERED: VANCOMYCIN 1,000 MG in DEXTROSE 5%-WATER - 250 ML IVPB ONE (16:30)
[2021-01-08] MEDS ORDERED: PIPERACILLIN/TAZOB 4.5 GM 4.5 GM in DEXTROSE 5%-WATER - 100 ML IVPB ONE (16:30)
[2021-01-08] MEDS ORDERED: AZITHROMYCIN IVPB 500 MG in DEXTROSE 5%-WATER - 250 ML IVPB ONE (16:31)
[2021-01-08] MEDS ORDERED: AZITHROMYCIN IVPB 500 MG/250 ML BAG IVPB ONE (16:39)
[2021-01-08] MEDS ORDERED: VANCOMYCIN 1 GRAM (PRE-DOCKED) 1,000 MG/250 ML BAG IVPB ONE (16:39)
[2021-01-08] MEDS ORDERED: PIPERACILLIN/TAZOB 4.5 GM 4.5 GM/100 ML BAG IVPB ONE (16:39)
[2021-01-08 17:12] LABS: ARTERIAL BLD GAS O2 SATURATION 99.9 mmHg (95-98); ARTERIAL BLOOD GAS BASE EXCESS -12.6 mmol/L (-2-2); ARTERIAL BLOOD GAS PO2 472.4 mmHg (80-100)
[2021-01-08 17:14] LABS: ALLENS TEST POSITIVE; VENT MODE S/T; VENT RATE 14
[2021-01-08 17:19] LABS: BASO % 0.4 % (0-2.0); EOS % 0.1 % (0-4.5); HEMATOCRIT 48.2 % (35.4-49); HEMOGLOBIN 15.1 GM/dL (11.7-16.9); MCH 27.7 pg (25.7-33.7); MCHC 31.3 g/dl (32.0-35.9); MEAN CELL VOLUME 88.6 fl (80-96); MONO % 8.3 % (3.8-10.2); NEUT % 74.2 % (42.8-82.8); PLATELET COUNT 171 K/MM3 (134-434); RBC 5.45 M/mm3 (4.00-5.60); RDW 20.8 % (11.9-15.9); WHITE BLOOD COUNT 5.4 K/mm3 (4.0-10.0)
[2021-01-08 17:26] LABS: INR 1.74 (0.83-1.09); PROTHROMBIN TIME (PATIENT) 21.1 SEC (9.7-13.0)
[2021-01-08 17:29] LABS: ACTIVATED PTT 32.3 SECONDS (25.2-36.5)
[2021-01-08 17:31] LABS: CHLORIDE 99 mmol/L (98-107); SODIUM 127 mmol/L (136-145)
[2021-01-08 17:33] LABS: CALCIUM 9.1 mg/dL (8.5-10.1)
[2021-01-08 17:34] LABS: ALBUMIN 3.7 g/dl (3.4-5.0); BLOOD UREA NITROGEN 28.5 mg/dL (7-18); CO2 17 mmol/L (21-32); GLUCOSE,RANDOM 77 mg/dL (74-106)
[2021-01-08 17:37] LABS: CREATININE 2.3 mg/dL (0.55-1.3); SGOT/AST 114 U/L (15-37); SGPT/ALT 37 U/L (13-61)
[2021-01-08 17:38] LABS: BILIRUBIN,TOTAL 4.6 mg/dL (0.2-1)
[2021-01-08 17:39] LABS: TOT PROT 9.1 g/dl (6.4-8.2)
[2021-01-08 17:40] LABS: ALK PHOS 233 U/L (45-117)
[2021-01-08 17:42] LABS: N-TERMINAL BNP 9856.5 pg/ml (5-125)
[2021-01-08 17:44] LABS: ANION GAP 11 MMOL/L (8-16); LACTIC ACID 7.6 mmol/L (0.4-2.0)
[2021-01-08] MEDS ORDERED: LACTATED RINGERS SOLUTION 1000 ML INFUS.BAG IV ONE (17:59)
[2021-01-08 18:01] LABS: EPI CELLS 7 /uL (0-25.1); HYALINE CASTS 2 /uL (0-3.1); URINE APPEARANCE CLEAR; URINE BACTERIA 62 /uL (0-1359); URINE BILIRUBIN 1+ (NEGATIVE); URINE COLOR DK YELLOW; URINE GLUCOSE (UA) NEGATIVE (NEGATIVE); URINE KETONE TRACE (NEGATIVE); URINE LEUK ESTERASE NEGATIVE (NEGATIVE); URINE NITRITE NEGATIVE (NEGATIVE); URINE PROTEIN 2+ (NEGATIVE); URINE RBC 19 /uL (0-23.9); URINE WBC 10 /uL (0-25.8)
[2021-01-08 18:34] LABS: PLATELET ESTIMATE NORMAL
[2021-01-08 18:35] LABS: ANISOCYTOSIS 2+
[2021-01-08 18:51] LABS: CHLORIDE 101 mmol/L (98-107); SODIUM 129 mmol/L (136-145)
[2021-01-08 18:54] LABS: CALCIUM 8.8 mg/dL (8.5-10.1)
[2021-01-08 18:55] LABS: ALBUMIN 3.2 g/dl (3.4-5.0); BLOOD UREA NITROGEN 28.3 mg/dL (7-18); CO2 15 mmol/L (21-32); GLUCOSE,RANDOM 127 mg/dL (74-106)
[2021-01-08 18:58] LABS: CREATININE 2.3 mg/dL (0.55-1.3); SGOT/AST 85 U/L (15-37); SGPT/ALT 32 U/L (13-61)
[2021-01-08 18:59] LABS: BILIRUBIN,TOTAL 4.4 mg/dL (0.2-1); TOT PROT 7.7 g/dl (6.4-8.2)
[2021-01-08 19:01] LABS: ALK PHOS 197 U/L (45-117); ANION GAP 13 MMOL/L (8-16); LACTIC ACID 8.9 mmol/L (0.4-2.0)
[2021-01-08] MEDS ORDERED: RAPID SEQUENCE INTUBATION KIT NR ONE (19:45)
[2021-01-08] MEDS ORDERED: EPINEPHrine 1:10,000 (P-F SYR) 1 MG/10 ML DISP.SYRIN ONE ×2 (20:06→20:40)
[2021-01-08] MEDS ORDERED: NOREPINEPHRINE BITARTRATE 4 MG/4 ML ML IV ONE (20:10)
[2021-01-08] MEDS ORDERED: DOPAMINE 400 MG/D5W - 400,000 MCG/250 ML INFUS.BAG IVPB ONE (20:41)
[2021-01-08 21:57] LABS: ARTERIAL BLD GAS O2 SATURATION 17.9 mmHg (95-98); ARTERIAL BLOOD GAS BASE EXCESS -24.5 mmol/L (-2-2)
[2021-01-08 22:02] LABS: ARTERIAL BLOOD GAS pH 6.798 (7.350-7.450)
[2021-01-08 22:03] LABS: ARTERIAL BLOOD GAS PO2 25.6 mmHg (80-100)
[2021-01-08 22:45] LABS: CHLORIDE 99 mmol/L (98-107); SODIUM 131 mmol/L (136-145)
[2021-01-08] MEDS ORDERED: DEXMEDETOMIDINE IN 0.9 % NACL 400 MCG/100 ML VIAL IVPB SCH (22:45)
[2021-01-08 22:47] LABS: ALBUMIN 2.8 g/dl (3.4-5.0); CALCIUM 8.5 mg/dL (8.5-10.1); CO2 15 mmol/L (21-32); GLUCOSE,RANDOM 96 mg/dL (74-106)
[2021-01-08 22:48] LABS: MAGNESIUM 2.4 mg/dL (1.8-2.4)
[2021-01-08 22:50] LABS: SGPT/ALT 81 U/L (13-61)
[2021-01-08 22:51] LABS: CREATININE 2.6 mg/dL (0.55-1.3); SGOT/AST 137 U/L (15-37)
[2021-01-08 22:52] LABS: BILIRUBIN,TOTAL 3.4 mg/dL (0.2-1)
[2021-01-08 22:53] LABS: ALK PHOS 198 U/L (45-117)
[2021-01-08 22:56] LABS: BASO % 0.4 % (0-2.0); EOS % 0.2 % (0-4.5); HEMATOCRIT 44.5 % (35.4-49); HEMOGLOBIN 13.6 GM/dL (11.7-16.9); LYMPH % 23.2 % (8-40); MCHC 30.6 g/dl (32.0-35.9); MEAN CELL VOLUME 91.4 fl (80-96); MEAN PLT VOLUME 8.5 fl (7.5-11.1); MONO % 4.9 % (3.8-10.2); NEUT % 71.3 % (42.8-82.8); PLATELET COUNT 147 K/MM3 (134-434); RBC 4.87 M/mm3 (4.00-5.60); RDW 20.9 % (11.9-15.9)
[2021-01-08 23:05] LABS: ANION GAP 17 MMOL/L (8-16); PHOSPHOROUS 9.4 mg/dL (2.5-4.9)
[2021-01-08 23:21] LABS: ANISOCYTOSIS 2+; PLATELET ESTIMATE DECREASED
[2021-01-09] MEDS: DOPAMINE 400 MG/D5W - 400,000 MCG/250 ML INFUS.BAG IVPB SCH (00:34)
[2021-01-09] MEDS: NOREPINEPHRINE NS PREMIX 8,000 MCG/500 ML BAG IVPB SCH ×2 (00:38→07:35)
[2021-01-09] MEDS ORDERED: SODIUM CHLORIDE IVPB ONE (01:31)
[2021-01-09] MEDS ORDERED: GENTAMICIN IVPB ONE (01:31)
[2021-01-09] MEDS ORDERED: FENTANYL IVPB 500 MCG/100 ML BAG IVPB ONE (01:54)
[2021-01-09] MEDS ORDERED: MIDAZOLAM 100 MG/100 ML MG IVPB ONE (01:54)
[2021-01-09] MEDS: FENTANYL IVPB 500 MCG/100 ML BAG IVPB SCH (02:00)
[2021-01-09] MEDS: MIDAZOLAM 100 MG/100 ML MG IVPB SCH (02:00)
[2021-01-09] MEDS ORDERED: AZTREONAM 1 GM VIAL (RESTRICTED TO ID) IVPB SCH ×2 (02:00)
[2021-01-09] MEDS: SODIUM CHLORIDE 1,000 ML IV SCH (02:00)
[2021-01-09] MEDS ORDERED: SODIUM CHLORIDE 500 ML IV STA (02:19)
[2021-01-09] MEDS ORDERED: EPINEPHrine 1:10,000 (P-F SYR) 1 MG/10 ML DISP.SYRIN ONE (02:28)
[2021-01-09] MEDS ORDERED: VECURONIUM BROMIDE 10 MG/10 ML VIAL IVPUSH ONE (02:35)
[2021-01-09] MEDS ORDERED: FENTANYL NS IVPB 500 MCG/100 ML BAG IVPB ONE (03:37)
[2021-01-09] MEDS ORDERED: GENTAMICIN IVPB SCH (03:45)
[2021-01-09] MEDS ORDERED: WATER IVPB SCH (03:45)
[2021-01-09] MEDS ORDERED: DEXTROSE 5% IVPB SCH (03:45)
[2021-01-09] MEDS: PIPERACILLIN/TAZOB 2.25 GM 2.25 GM in DEXTROSE 5%-WATER - 50 ML IVPB SCH ×4 (03:55→21:10)
[2021-01-09] MEDS ORDERED: PIPERACILLIN/TAZOBACTAM 2.25 GM VIAL IVPB ONE ×4 (04:04→20:57)
[2021-01-09] MEDS ORDERED: DEXTROSE 5%-WATER - 50 ML IVPB ONE ×4 (04:04→20:57)
[2021-01-09 05:38] LABS: ARTERIAL BLD GAS O2 SATURATION 98.6 mmHg (95-98); ARTERIAL BLOOD GAS BASE EXCESS -16.1 mmol/L (-2-2); ARTERIAL BLOOD GAS PO2 175.9 mmHg (80-100)
[2021-01-09 05:40] LABS: ALLENS TEST POSITIVE
[2021-01-09 05:41] LABS: VENT MODE A/C; VENT RATE 25
[2021-01-09 05:42] LABS: ARTERIAL BLOOD GAS pH 7.091 (7.350-7.450)
[2021-01-09] MEDS: HEPARIN NA (PORCINE) 5,000 UNITS/ML 1ML VIAL SQ SCH ×3 (06:42→21:11)
[2021-01-09] MEDS ORDERED: NOREPINEPHRINE BITARTRATE 4 MG/4 ML ML IV ONE (07:29)
[2021-01-09 07:41] LABS: CHLORIDE 99 mmol/L (98-107); SODIUM 132 mmol/L (136-145)
[2021-01-09 07:43] LABS: CALCIUM 7.8 mg/dL (8.5-10.1)
[2021-01-09 07:44] LABS: ALBUMIN 2.6 g/dl (3.4-5.0); CO2 10 mmol/L (21-32); GLUCOSE,RANDOM 185 mg/dL (74-106); MAGNESIUM 1.9 mg/dL (1.8-2.4)
[2021-01-09 07:47] LABS: CREATININE 2.3 mg/dL (0.55-1.3); PHOSPHOROUS 8.7 mg/dL (2.5-4.9); SGOT/AST 628 U/L (15-37); SGPT/ALT 356 U/L (13-61)
[2021-01-09 07:48] LABS: TOT PROT 6.6 g/dl (6.4-8.2)
[2021-01-09 07:50] LABS: ALK PHOS 188 U/L (45-117)
[2021-01-09 08:09] LABS: ANION GAP 23 MMOL/L (8-16)
[2021-01-09] MEDS ORDERED: INSULIN (NOVOLOG) ASPART 100 UNITS/ML 10ML VIAL SQ ONE (09:16)
[2021-01-09] MEDS ORDERED: DEXTROSE 50%-WATER 25 GM/50 ML DISP.SYRIN ONE (09:56)
[2021-01-09] MEDS: SODIUM BICARBONATE 8.4% 50 MEQ/50 ML DISP.SYRIN IVPUSH ONE ×2 (10:00→10:08)
[2021-01-09] MEDS ORDERED: DEXTROSE 50%-WATER - 25 GM/50 ML VIAL IVPUSH ONE (10:00)
[2021-01-09] MEDS ORDERED: INSULIN REGULAR HUMAN 100 UNITS/ML *VIAL IVPUSH ONE (10:00)
[2021-01-09] MEDS: SODIUM BICARBONATE 8.4% 50 MEQ/50 ML DISP.SYRIN IVPUSH SCH ×3 (13:55→21:24)
[2021-01-09] MEDS: MUPIROCIN 2% TOPICAL OINTMENT FOR DECOLONIZATION NS SCH ×2 (14:00→21:12)
[2021-01-09 16:13] LABS: CALCIUM 7.6 mg/dL (8.5-10.1)
[2021-01-09 16:17] LABS: CREATININE 2.7 mg/dL (0.55-1.3)
[2021-01-09] MEDS: CHLORHEXIDINE GLUCONATE 4% CLEANSER FOR DECOLONIZATION TP SCH (21:11)
[2021-01-10] MEDS ORDERED: PIPERACILLIN/TAZOBACTAM 2.25 GM VIAL IVPB ONE ×4 (01:39→21:49)
[2021-01-10] MEDS ORDERED: DEXTROSE 5%-WATER - 50 ML IVPB ONE ×4 (01:40→21:49)
[2021-01-10] MEDS: NOREPINEPHRINE NS PREMIX 8,000 MCG/500 ML BAG IVPB SCH ×2 (02:45→11:16)
[2021-01-10] MEDS: SODIUM CHLORIDE 1,000 ML IV SCH ×2 (02:51→18:14)
[2021-01-10] MEDS: FENTANYL IVPB 500 MCG/100 ML BAG IVPB SCH ×4 (02:51→22:24)
[2021-01-10] MEDS: MIDAZOLAM 100 MG/100 ML MG IVPB SCH ×2 (02:51→11:17)
[2021-01-10] MEDS: PIPERACILLIN/TAZOB 2.25 GM 2.25 GM in DEXTROSE 5%-WATER - 50 ML IVPB SCH ×4 (02:52→22:23)
[2021-01-10] MEDS: HEPARIN NA (PORCINE) 5,000 UNITS/ML 1ML VIAL SQ SCH ×3 (06:53→22:23)
[2021-01-10] MEDS: DOPAMINE 400 MG/D5W - 400,000 MCG/250 ML INFUS.BAG IVPB SCH ×2 (07:00→11:23)
[2021-01-10 07:17] LABS: HEMATOCRIT 42.3 % (35.4-49); HEMOGLOBIN 13.2 GM/dL (11.7-16.9); MCH 27.4 pg (25.7-33.7); MCHC 31.2 g/dl (32.0-35.9); MEAN CELL VOLUME 87.9 fl (80-96); PLATELET COUNT 109 K/MM3 (134-434); RBC 4.82 M/mm3 (4.00-5.60); RDW 20.7 % (11.9-15.9); WHITE BLOOD COUNT 13.6 K/mm3 (4.0-10.0)
[2021-01-10 07:36] LABS: BLOOD UREA NITROGEN 41.9 mg/dL (7-18); MAGNESIUM 1.7 mg/dL (1.8-2.4)
[2021-01-10 07:39] LABS: CREATININE 3.1 mg/dL (0.55-1.3); PHOSPHOROUS 7.2 mg/dL (2.5-4.9)
[2021-01-10] MEDS ORDERED: PT OWN MED DRAWER 7, Y5N ONE (09:20)
[2021-01-10] MEDS: MUPIROCIN 2% TOPICAL OINTMENT FOR DECOLONIZATION NS SCH ×2 (09:24→22:23)
[2021-01-10] MEDS ORDERED: BISACODYL 10 MG SUPP.RECT PR ONE (09:48)
[2021-01-10] MEDS ORDERED: VANCOMYCIN 1 GRAM (PRE-DOCKED) 1,000 MG/250 ML BAG IVPB ONE (10:30)
[2021-01-10] MEDS: POLYETHYLENE GLYCOL 3350 119 GM BTL PO SCH ×2 (11:00→22:24)
[2021-01-10 15:09] LABS: EPI CELLS 26 /uL (0-25.1); HYALINE CASTS 8 /uL (0-3.1); URINE APPEARANCE TURBID; URINE BACTERIA 138 /uL (0-1359); URINE BILIRUBIN 1+ (NEGATIVE); URINE COLOR DK YELLOW; URINE GLUCOSE (UA) 1+ (NEGATIVE); URINE KETONE NEGATIVE (NEGATIVE); URINE LEUK ESTERASE TRACE (NEGATIVE); URINE NITRITE NEGATIVE (NEGATIVE); URINE PROTEIN 3+ (NEGATIVE); URINE RBC 52.8 /uL (0-23.9); URINE WBC 552 /uL (0-25.8)
[2021-01-10 15:23] LABS: YEAST NON SEEN (NEGATIVE)
[2021-01-10] MEDS ORDERED: AMINO ACIDS 4.25%/D5W 1,000 ML IV SCH (17:15)
[2021-01-10] MEDS: CHLORHEXIDINE GLUCONATE 4% CLEANSER FOR DECOLONIZATION TP SCH (22:23)
[2021-01-11] MEDS: PIPERACILLIN/TAZOB 2.25 GM 2.25 GM in DEXTROSE 5%-WATER - 50 ML IVPB SCH ×4 (03:00→21:50)
[2021-01-11] MEDS ORDERED: DEXTROSE 5%-WATER - 50 ML IVPB ONE ×4 (03:42→20:27)
[2021-01-11] MEDS ORDERED: PIPERACILLIN/TAZOBACTAM 2.25 GM VIAL IVPB ONE ×4 (03:42→20:27)
[2021-01-11 06:48] LABS: ARTERIAL BLD GAS O2 SATURATION 99.3 mmHg (95-98); ARTERIAL BLOOD GAS BASE EXCESS -8.9 mmol/L (-2-2); ARTERIAL BLOOD GAS PO2 214.2 mmHg (80-100); ARTERIAL BLOOD GAS pH 7.278 (7.350-7.450)
[2021-01-11 06:49] LABS: ALLENS TEST POSITIVE; VENT MODE AC; VENT RATE 25
[2021-01-11 06:58] LABS: HEMATOCRIT 37.5 % (35.4-49); HEMOGLOBIN 12.1 GM/dL (11.7-16.9); MCH 27.7 pg (25.7-33.7); MCHC 32.4 g/dl (32.0-35.9); MEAN CELL VOLUME 85.7 fl (80-96); MEAN PLT VOLUME 8.9 fl (7.5-11.1); PLATELET COUNT 100 K/MM3 (134-434); RBC 4.37 M/mm3 (4.00-5.60); RDW 19.8 % (11.9-15.9); WHITE BLOOD COUNT 11.7 K/mm3 (4.0-10.0)
[2021-01-11 07:05] LABS: INR 1.61 (0.83-1.09); PROTHROMBIN TIME (PATIENT) 19.5 SEC (9.7-13.0)
[2021-01-11 07:10] LABS: CHLORIDE 95 mmol/L (98-107); SODIUM 128 mmol/L (136-145)
[2021-01-11 07:13] LABS: ALBUMIN 2.4 g/dl (3.4-5.0); ANION GAP 11 MMOL/L (8-16); BLOOD UREA NITROGEN 54.6 mg/dL (7-18); CO2 21 mmol/L (21-32); GLUCOSE,RANDOM 129 mg/dL (74-106); MAGNESIUM 1.6 mg/dL (1.8-2.4)
[2021-01-11 07:15] LABS: CALCIUM 6.4 mg/dL (8.5-10.1); CREATININE 3.9 mg/dL (0.55-1.3); SGOT/AST 196 U/L (15-37); SGPT/ALT 224 U/L (13-61)
[2021-01-11 07:17] LABS: BILIRUBIN,TOTAL 2.5 mg/dL (0.2-1); TOT PROT 5.9 g/dl (6.4-8.2)
[2021-01-11 07:21] LABS: ALK PHOS 105 U/L (45-117)
[2021-01-11] MEDS: SODIUM CHLORIDE 1,000 ML IV SCH (07:27)
[2021-01-11] MEDS: MIDAZOLAM 100 MG/100 ML MG IVPB SCH (07:27)
[2021-01-11] MEDS: FENTANYL IVPB 500 MCG/100 ML BAG IVPB SCH ×2 (07:27→08:57)
[2021-01-11] MEDS: DOPAMINE 400 MG/D5W - 400,000 MCG/250 ML INFUS.BAG IVPB SCH (07:28)
[2021-01-11] MEDS: NOREPINEPHRINE NS PREMIX 8,000 MCG/500 ML BAG IVPB SCH ×2 (07:28→21:51)
[2021-01-11] MEDS: HEPARIN NA (PORCINE) 5,000 UNITS/ML 1ML VIAL SQ SCH ×3 (07:57→21:51)
[2021-01-11] MEDS: MUPIROCIN 2% TOPICAL OINTMENT FOR DECOLONIZATION NS SCH ×2 (09:32→21:50)
[2021-01-11] MEDS: POLYETHYLENE GLYCOL 3350 119 GM BTL PO SCH ×2 (11:54→21:51)
[2021-01-11] MEDS: PANTOPRAZOLE SODIUM 40 MG VIAL IVPUSH SCH (14:07)
[2021-01-11] MEDS ORDERED: MINERAL OIL ENEMA 133 ML ENEMA PR ONE (15:41)
[2021-01-11] MEDS ORDERED: LACTULOSE 20 GM/30 ML UDC (FOR ORAL USE ONLY) PO ONE (15:41)
[2021-01-11] MEDS ORDERED: FENTANYL NS IVPB 500 MCG/100 ML BAG IVPB SCH (17:30)
[2021-01-11] MEDS: CHLORHEXIDINE GLUCONATE 4% CLEANSER FOR DECOLONIZATION TP SCH (21:51)
[2021-01-11] MEDS ORDERED: FENTANYL IVPB 500 MCG/100 ML BAG IVPB ONE (21:57)
[2021-01-12] MEDS: DOPAMINE 400 MG/D5W - 400,000 MCG/250 ML INFUS.BAG IVPB SCH ×2 (00:39→07:56)
[2021-01-12] MEDS: NOREPINEPHRINE NS PREMIX 8,000 MCG/500 ML BAG IVPB SCH (00:41)
[2021-01-12] MEDS: HEPARIN NA (PORCINE) 5,000 UNITS/ML 1ML VIAL SQ SCH ×3 (06:43→21:43)
[2021-01-12 07:22] LABS: CHLORIDE 95 mmol/L (98-107); SODIUM 128 mmol/L (136-145)
[2021-01-12 07:29] LABS: HEMATOCRIT 35.7 % (35.4-49); HEMOGLOBIN 11.7 GM/dL (11.7-16.9); MCH 27.6 pg (25.7-33.7); MCHC 32.7 g/dl (32.0-35.9); MEAN CELL VOLUME 84.3 fl (80-96); MEAN PLT VOLUME 9.2 fl (7.5-11.1); PLATELET COUNT 97 K/MM3 (134-434); RBC 4.24 M/mm3 (4.00-5.60); WHITE BLOOD COUNT 13.1 K/mm3 (4.0-10.0)
[2021-01-12 07:40] LABS: ALBUMIN 2.4 g/dl (3.4-5.0); ANION GAP 14 MMOL/L (8-16); BLOOD UREA NITROGEN 64.1 mg/dL (7-18); CO2 19 mmol/L (21-32); MAGNESIUM 1.6 mg/dL (1.8-2.4)
[2021-01-12 07:41] LABS: GLUCOSE,RANDOM 86 mg/dL (74-106)
[2021-01-12 07:43] LABS: CREATININE 4.7 mg/dL (0.55-1.3); SGOT/AST 105 U/L (15-37); SGPT/ALT 159 U/L (13-61)
[2021-01-12] MEDS ORDERED: PT OWN MED DRAWER 7, Y5N ONE (07:43)
[2021-01-12 07:45] LABS: BILIRUBIN,TOTAL 2.9 mg/dL (0.2-1); TOT PROT 6.3 g/dl (6.4-8.2)
[2021-01-12 07:46] LABS: ALK PHOS 102 U/L (45-117)
[2021-01-12 07:54] LABS: CALCIUM 6.8 mg/dL (8.5-10.1)
[2021-01-12] MEDS: SODIUM CHLORIDE 1,000 ML IV SCH (07:57)
[2021-01-12] MEDS ORDERED: MAGNESIUM SULF 50% (8.12 MEQ/2 ML-1 GM VIAL) IVPB ONE (08:13)
[2021-01-12] MEDS ORDERED: DEXTROSE 5%-WATER - 50 ML IVPB ONE ×3 (08:19→17:52)
[2021-01-12] MEDS ORDERED: PIPERACILLIN/TAZOBACTAM 2.25 GM VIAL IVPB ONE ×3 (08:19→17:51)
[2021-01-12] MEDS: PIPERACILLIN/TAZOB 2.25 GM 2.25 GM in DEXTROSE 5%-WATER - 50 ML IVPB SCH ×2 (08:22→15:33)
[2021-01-12] MEDS: POLYETHYLENE GLYCOL 3350 119 GM BTL PO SCH ×2 (09:38→21:43)
[2021-01-12] MEDS: PANTOPRAZOLE SODIUM 40 MG VIAL IVPUSH SCH (09:39)
[2021-01-12] MEDS: MUPIROCIN 2% TOPICAL OINTMENT FOR DECOLONIZATION NS SCH ×2 (09:50→21:43)
[2021-01-12] MEDS ORDERED: SODIUM CHLORIDE 1,000 ML IV SCH (10:45)
[2021-01-12] MEDS: DOBUTAMINE 250 MG/D5W - 250,000 MCG/250 ML INFUS.BAG IV SCH (11:09)
[2021-01-12] MEDS ORDERED: MORPHINE SULFATE 2 MG/ML VIAL IVPUSH PRN (11:38)
[2021-01-12] MEDS ORDERED: MORPHINE SULFATE 2 MG/ML VIAL ONE (11:39)
[2021-01-12] MEDS: FENTANYL NS IVPB 500 MCG/100 ML BAG IVPB SCH (12:35)
[2021-01-12] MEDS ORDERED: FUROSEMIDE 40 MG/4 ML INJECTABLE VIAL IVPUSH ONE ×2 (14:15→21:58)
[2021-01-12] MEDS ORDERED: FUROSEMIDE 40 MG/4 ML INJECTABLE VIAL ONE (14:17)
[2021-01-12] MEDS ORDERED: NOREPINEPHRINE D5W PREMIX 16,000 MCG/500 ML BAG IVPB ONE (14:28)
[2021-01-12 14:34] VITALS: BMI 26.4
[2021-01-12] MEDS ORDERED: MIDAZOLAM 100 MG/100 ML MG IVPB ONE (21:03)
[2021-01-12] MEDS: CHLORHEXIDINE GLUCONATE 4% CLEANSER FOR DECOLONIZATION TP SCH (21:43)
[2021-01-12] MEDS ORDERED: FENTANYL IVPB 500 MCG/100 ML BAG IVPB ONE (21:51)
[2021-01-12] MEDS ORDERED: ROCURONIUM BROMIDE 100 MG/10 ML VIAL ONE (22:06)
[2021-01-12] MEDS ORDERED: VECURONIUM BROMIDE 10 MG/10 ML VIAL ONE (22:07)
[2021-01-12] MEDS ORDERED: VECURONIUM BROMIDE 10 MG/10 ML VIAL IVPUSH ONE (22:08)
[2021-01-12] MEDS: PROPOFOL 1,000,000 MCG/100 ML VIAL IVPB SCH (22:10)
[2021-01-13] MEDS: NOREPINEPHRINE NS PREMIX 8,000 MCG/500 ML BAG IVPB SCH (00:11)
[2021-01-13] MEDS: PIPERACILLIN/TAZOB 2.25 GM 2.25 GM in DEXTROSE 5%-WATER - 50 ML IVPB SCH ×3 (01:52→18:36)
[2021-01-13] MEDS ORDERED: MIDAZOLAM 100 MG/100 ML MG IVPB ONE (03:10)
[2021-01-13] MEDS ORDERED: FENTANYL IVPB 500 MCG/100 ML BAG IVPB ONE (03:10)
[2021-01-13] MEDS: HEPARIN NA (PORCINE) 5,000 UNITS/ML 1ML VIAL SQ SCH ×3 (06:40→21:04)
[2021-01-13 07:01] LABS: HEMATOCRIT 31.6 % (35.4-49); HEMOGLOBIN 10.3 GM/dL (11.7-16.9); MCH 27.8 pg (25.7-33.7); MCHC 32.7 g/dl (32.0-35.9); MEAN CELL VOLUME 85.1 fl (80-96); MEAN PLT VOLUME 9.4 fl (7.5-11.1); PLATELET COUNT 78 K/MM3 (134-434); RBC 3.71 M/mm3 (4.00-5.60); WHITE BLOOD COUNT 11.8 K/mm3 (4.0-10.0)
[2021-01-13 07:21] LABS: CHLORIDE 96 mmol/L (98-107); SODIUM 129 mmol/L (136-145)
[2021-01-13 07:24] LABS: ANION GAP 15 MMOL/L (8-16); BLOOD UREA NITROGEN 72.2 mg/dL (7-18); CO2 19 mmol/L (21-32); GLUCOSE,RANDOM 143 mg/dL (74-106)
[2021-01-13 07:25] LABS: ALBUMIN 2.2 g/dl (3.4-5.0); MAGNESIUM 2.2 mg/dL (1.8-2.4)
[2021-01-13 07:27] LABS: CREATININE 5.6 mg/dL (0.55-1.3); PHOSPHOROUS 6.4 mg/dL (2.5-4.9); SGPT/ALT 107 U/L (13-61)
[2021-01-13 07:28] LABS: SGOT/AST 64 U/L (15-37)
[2021-01-13 07:29] LABS: BILIRUBIN,TOTAL 2.3 mg/dL (0.2-1); TOT PROT 5.9 g/dl (6.4-8.2)
[2021-01-13 07:30] LABS: ALK PHOS 109 U/L (45-117); CALCIUM 6.7 mg/dL (8.5-10.1)
[2021-01-13] MEDS ORDERED: PIPERACILLIN/TAZOBACTAM 2.25 GM VIAL IVPB ONE ×2 (10:02→19:43)
[2021-01-13] MEDS ORDERED: DEXTROSE 5%-WATER - 50 ML IVPB ONE ×2 (10:03→19:43)
[2021-01-13] MEDS: AMINO ACIDS/PROTEIN HYDROLYS 30 ML LIQUID.PKT PO SCH (10:06)
[2021-01-13] MEDS: MUPIROCIN 2% TOPICAL OINTMENT FOR DECOLONIZATION NS SCH ×2 (10:07→21:05)
[2021-01-13] MEDS: PANTOPRAZOLE SODIUM 40 MG VIAL IVPUSH SCH (10:07)
[2021-01-13] MEDS: POLYETHYLENE GLYCOL 3350 119 GM BTL PO SCH ×2 (10:07→21:04)
[2021-01-13] MEDS: FENTANYL NS IVPB 500 MCG/100 ML BAG IVPB SCH (15:00)
[2021-01-13] MEDS: DOBUTAMINE 250 MG/D5W - 250,000 MCG/250 ML INFUS.BAG IV SCH (15:01)
[2021-01-13] MEDS: PROPOFOL 1,000,000 MCG/100 ML VIAL IVPB SCH (21:04)
[2021-01-13] MEDS: CHLORHEXIDINE GLUCONATE 4% CLEANSER FOR DECOLONIZATION TP SCH (21:04)
[2021-01-14] MEDS: PIPERACILLIN/TAZOB 2.25 GM 2.25 GM in DEXTROSE 5%-WATER - 50 ML IVPB SCH ×4 (01:01→19:09)
[2021-01-14] MEDS: HEPARIN NA (PORCINE) 5,000 UNITS/ML 1ML VIAL SQ SCH ×3 (06:50→22:12)
[2021-01-14 07:46] LABS: HEMATOCRIT 32.3 % (35.4-49); HEMOGLOBIN 10.5 GM/dL (11.7-16.9); MCH 27.8 pg (25.7-33.7); MCHC 32.6 g/dl (32.0-35.9); MEAN CELL VOLUME 85.5 fl (80-96); MEAN PLT VOLUME 9.4 fl (7.5-11.1); PLATELET COUNT 76 K/MM3 (134-434); RBC 3.78 M/mm3 (4.00-5.60); RDW 20.7 % (11.9-15.9); WHITE BLOOD COUNT 9.6 K/mm3 (4.0-10.0)
[2021-01-14 08:19] LABS: ALBUMIN 2.4 g/dl (3.4-5.0)
[2021-01-14 08:20] LABS: BLOOD UREA NITROGEN 82.8 mg/dL (7-18)
[2021-01-14 08:21] LABS: BILIRUBIN,TOTAL 1.9 mg/dL (0.2-1); TOT PROT 6.4 g/dl (6.4-8.2)
[2021-01-14 08:23] LABS: CALCIUM 7.1 mg/dL (8.5-10.1); MAGNESIUM 2.4 mg/dL (1.8-2.4)
[2021-01-14] MEDS ORDERED: DEXTROSE 50%-WATER - 25 GM/50 ML VIAL IVPUSH ONE (08:31)
[2021-01-14] MEDS ORDERED: INSULIN REGULAR HUMAN 100 UNITS/ML *VIAL IVPUSH ONE (08:31)
[2021-01-14] MEDS ORDERED: SODIUM ZIRCONIUM CYCLOSILICATE (LOKELMA) 5 GM PACKET PO ONE (08:32)
[2021-01-14] MEDS ORDERED: DEXTROSE 50%-WATER 25 GM/50 ML DISP.SYRIN ONE (09:02)
[2021-01-14] MEDS ORDERED: PIPERACILLIN/TAZOBACTAM 2.25 GM VIAL IVPB ONE ×2 (09:02→16:51)
[2021-01-14] MEDS ORDERED: DEXTROSE 5%-WATER - 50 ML IVPB ONE ×2 (09:02→16:51)
[2021-01-14] MEDS: AMINO ACIDS/PROTEIN HYDROLYS 30 ML LIQUID.PKT PO SCH (09:07)
[2021-01-14] MEDS: PANTOPRAZOLE SODIUM 40 MG VIAL IVPUSH SCH (09:08)
[2021-01-14] MEDS: POLYETHYLENE GLYCOL 3350 119 GM BTL PO SCH ×2 (10:04→22:12)
[2021-01-14] MEDS ORDERED: FUROSEMIDE INJECTION 100 MG in DEXTROSE 5%-WATER - 40 ML IVPB SCH ×3 (11:15→13:41)
[2021-01-14] MEDS ORDERED: CALCIUM GLUCONATE 10% - 1,000 MG/10 ML VIAL IVPB ONE (13:18)
[2021-01-14] MEDS ORDERED: SODIUM BICARBONATE 8.4% 50 MEQ/50 ML DISP.SYRIN IVPUSH ONE (13:19)
[2021-01-14] MEDS ORDERED: NITROGLYCERIN 25MG/D5W 250ML 25 MG/250 ML ML IVPB ONE (13:34)
[2021-01-14] MEDS: FENTANYL NS IVPB 500 MCG/100 ML BAG IVPB SCH (17:11)
[2021-01-14] MEDS: PROPOFOL 1,000,000 MCG/100 ML VIAL IVPB SCH (17:12)
[2021-01-14] MEDS: CHLORHEXIDINE GLUCONATE 4% CLEANSER FOR DECOLONIZATION TP SCH (22:13)
[2021-01-15] MEDS ORDERED: DEXTROSE 5%-WATER - 50 ML IVPB ONE ×2 (00:39→09:20)
[2021-01-15] MEDS ORDERED: PIPERACILLIN/TAZOBACTAM 2.25 GM VIAL IVPB ONE ×2 (00:39→09:20)
[2021-01-15] MEDS: PIPERACILLIN/TAZOB 2.25 GM 2.25 GM in DEXTROSE 5%-WATER - 50 ML IVPB SCH ×2 (02:05→09:31)
[2021-01-15] MEDS: HEPARIN NA (PORCINE) 5,000 UNITS/ML 1ML VIAL SQ SCH ×3 (06:32→22:57)
[2021-01-15 07:08] LABS: HEMATOCRIT 31.3 % (35.4-49); HEMOGLOBIN 10.1 GM/dL (11.7-16.9); MCH 27.5 pg (25.7-33.7); MCHC 32.3 g/dl (32.0-35.9); MEAN CELL VOLUME 84.9 fl (80-96); MEAN PLT VOLUME 9.1 fl (7.5-11.1); PLATELET COUNT 80 K/MM3 (134-434); RBC 3.68 M/mm3 (4.00-5.60); RDW 20.1 % (11.9-15.9); WHITE BLOOD COUNT 10.2 K/mm3 (4.0-10.0)
[2021-01-15 07:16] LABS: ALBUMIN 2.4 g/dl (3.4-5.0); BLOOD UREA NITROGEN 90.9 mg/dL (7-18); CALCIUM 7.3 mg/dL (8.5-10.1)
[2021-01-15 07:17] LABS: MAGNESIUM 2.6 mg/dL (1.8-2.4)
[2021-01-15 07:19] LABS: CREATININE 6.7 mg/dL (0.55-1.3); PHOSPHOROUS 8.4 mg/dL (2.5-4.9)
[2021-01-15 07:21] LABS: BILIRUBIN,TOTAL 1.7 mg/dL (0.2-1); TOT PROT 6.3 g/dl (6.4-8.2)
[2021-01-15] MEDS: DOBUTAMINE 250 MG/D5W - 250,000 MCG/250 ML INFUS.BAG IV SCH ×2 (09:31→12:16)
[2021-01-15] MEDS: AMINO ACIDS/PROTEIN HYDROLYS 30 ML LIQUID.PKT PO SCH (09:31)
[2021-01-15] MEDS: PANTOPRAZOLE SODIUM 40 MG VIAL IVPUSH SCH (09:31)
[2021-01-15] MEDS: POLYETHYLENE GLYCOL 3350 119 GM BTL PO SCH ×2 (11:25→22:57)
[2021-01-15] MEDS: CALCIUM ACETATE 667 MG CAPSULE (FP) PO SCH ×2 (12:15→17:09)
[2021-01-15] MEDS ORDERED: SODIUM BICARBONATE 8.4% 50 MEQ/50 ML DISP.SYRIN IVPUSH ONE (12:39)
[2021-01-15] MEDS: SODIUM ZIRCONIUM CYCLOSILICATE (LOKELMA) 5 GM PACKET PO SCH (13:40)
[2021-01-15] MEDS ORDERED: SODIUM BICARBONATE 8.4% - 50 ML ONE (13:41)
[2021-01-15] MEDS: NOREPINEPHRINE NS PREMIX 8,000 MCG/500 ML BAG IVPB SCH (13:43)
[2021-01-15] MEDS: FUROSEMIDE INJECTION 100 MG in DEXTROSE 5%-WATER - 40 ML IVPB SCH (13:43)
[2021-01-15] MEDS: FENTANYL NS IVPB 500 MCG/100 ML BAG IVPB SCH (16:53)
[2021-01-15] MEDS: CHLORHEXIDINE GLUCONATE 4% CLEANSER FOR DECOLONIZATION TP SCH (22:57)
[2021-01-16 07:18] LABS: BASO % 0.3 % (0-2.0); EOS % 0.1 % (0-4.5); HEMOGLOBIN 9.8 GM/dL (11.7-16.9); LYMPH % 5.8 % (8-40); MCH 27.5 pg (25.7-33.7); MCHC 32.5 g/dl (32.0-35.9); MEAN CELL VOLUME 84.5 fl (80-96); MONO % 6.5 % (3.8-10.2); NEUT % 87.3 % (42.8-82.8); PLATELET COUNT 89 K/MM3 (134-434); RBC 3.55 M/mm3 (4.00-5.60); RDW 19.9 % (11.9-15.9); WHITE BLOOD COUNT 10.7 K/mm3 (4.0-10.0)
[2021-01-16 07:34] LABS: CALCIUM 7.3 mg/dL (8.5-10.1)
[2021-01-16 07:35] LABS: ALBUMIN 2.3 g/dl (3.4-5.0); BLOOD UREA NITROGEN 100.9 mg/dL (7-18); MAGNESIUM 2.6 mg/dL (1.8-2.4)
[2021-01-16 07:39] LABS: BILIRUBIN,TOTAL 1.6 mg/dL (0.2-1); CREATININE 7.2 mg/dL (0.55-1.3); TOT PROT 6.3 g/dl (6.4-8.2)
[2021-01-16 07:41] LABS: PHOSPHOROUS 8.9 mg/dL (2.5-4.9)
[2021-01-16] MEDS ORDERED: PT OWN MED DRAWER 7, Y5N ONE (09:20)
[2021-01-16] MEDS: SODIUM ZIRCONIUM CYCLOSILICATE (LOKELMA) 5 GM PACKET PO SCH (09:22)
[2021-01-16] MEDS: AMINO ACIDS/PROTEIN HYDROLYS 30 ML LIQUID.PKT PO SCH (09:23)
[2021-01-16] MEDS: PANTOPRAZOLE SODIUM 40 MG VIAL IVPUSH SCH (09:23)
[2021-01-16] MEDS: POLYETHYLENE GLYCOL 3350 119 GM BTL PO SCH ×2 (09:23→21:59)
[2021-01-16] MEDS: CALCIUM ACETATE 667 MG CAPSULE (FP) PO SCH ×3 (09:23→16:34)
[2021-01-16] MEDS: FUROSEMIDE INJECTION 100 MG in DEXTROSE 5%-WATER - 40 ML IVPB SCH (13:42)
[2021-01-16] MEDS ORDERED: SODIUM BICARBONATE 8.4% 50 MEQ/50 ML DISP.SYRIN IVPUSH ONE (13:45)
[2021-01-16] MEDS: DOBUTAMINE 250 MG/D5W - 250,000 MCG/250 ML INFUS.BAG IV SCH (17:10)
[2021-01-16] MEDS ORDERED: PROPOFOL 1,000,000 MCG/100 ML VIAL ONE (21:24)
[2021-01-16] MEDS: CHLORHEXIDINE GLUCONATE 4% CLEANSER FOR DECOLONIZATION TP SCH (21:59)
[2021-01-17] MEDS: PROPOFOL 1,000,000 MCG/100 ML VIAL IVPB SCH ×2 (01:30→13:45)
[2021-01-17 07:02] LABS: CHLORIDE 94 mmol/L (98-107); SODIUM 129 mmol/L (136-145)
[2021-01-17 07:04] LABS: HEMATOCRIT 28.3 % (35.4-49); HEMOGLOBIN 9.2 GM/dL (11.7-16.9); MCH 27.3 pg (25.7-33.7); MCHC 32.7 g/dl (32.0-35.9); MEAN CELL VOLUME 83.6 fl (80-96); MEAN PLT VOLUME 8.6 fl (7.5-11.1); PLATELET COUNT 87 K/MM3 (134-434); RBC 3.38 M/mm3 (4.00-5.60); RDW 20.4 % (11.9-15.9); WHITE BLOOD COUNT 11.4 K/mm3 (4.0-10.0)
[2021-01-17 07:09] LABS: ALBUMIN 2.2 g/dl (3.4-5.0); CALCIUM 7.5 mg/dL (8.5-10.1)
[2021-01-17 07:11] LABS: ANION GAP 16 MMOL/L (8-16); CO2 19 mmol/L (21-32); GLUCOSE,RANDOM 132 mg/dL (74-106); MAGNESIUM 2.8 mg/dL (1.8-2.4)
[2021-01-17 07:12] LABS: SGPT/ALT 52 U/L (13-61)
[2021-01-17 07:14] LABS: BILIRUBIN,TOTAL 1.5 mg/dL (0.2-1); SGOT/AST 40 U/L (15-37); TOT PROT 6.1 g/dl (6.4-8.2)
[2021-01-17 07:16] LABS: ALK PHOS 153 U/L (45-117)
[2021-01-17 07:22] LABS: BLOOD UREA NITROGEN 109.5 mg/dL (7-18); CREATININE 7.6 mg/dL (0.55-1.3)
[2021-01-17 07:40] LABS: PHOSPHOROUS 8.7 mg/dL (2.5-4.9)
[2021-01-17] MEDS: CALCIUM ACETATE 667 MG CAPSULE (FP) PO SCH ×3 (09:55→17:18)
[2021-01-17] MEDS: AMINO ACIDS/PROTEIN HYDROLYS 30 ML LIQUID.PKT PO SCH (09:55)
[2021-01-17] MEDS: SODIUM ZIRCONIUM CYCLOSILICATE (LOKELMA) 5 GM PACKET PO SCH (09:55)
[2021-01-17] MEDS: POLYETHYLENE GLYCOL 3350 119 GM BTL PO SCH ×2 (09:55→21:08)
[2021-01-17] MEDS: PANTOPRAZOLE SODIUM 40 MG VIAL IVPUSH SCH (09:56)
[2021-01-17] MEDS: FUROSEMIDE INJECTION 100 MG in DEXTROSE 5%-WATER - 40 ML IVPB SCH ×2 (13:45→21:10)
[2021-01-17] MEDS ORDERED: SODIUM BICARBONATE 8.4% 50 MEQ/50 ML DISP.SYRIN IVPUSH ONE (14:38)
[2021-01-17] MEDS: CHLORHEXIDINE GLUCONATE 4% CLEANSER FOR DECOLONIZATION TP SCH (21:08)
[2021-01-17] MEDS: NOREPINEPHRINE NS PREMIX 8,000 MCG/500 ML BAG IVPB SCH (21:10)
[2021-01-17] MEDS: DOBUTAMINE 250 MG/D5W - 250,000 MCG/250 ML INFUS.BAG IV SCH ×2 (21:10)
[2021-01-18] MEDS: PROPOFOL 1,000,000 MCG/100 ML VIAL IVPB SCH
[2021-01-18 06:02] LABS: BASO % 0.3 % (0-2.0); EOS % 0.2 % (0-4.5); HEMATOCRIT 27.7 % (35.4-49); HEMOGLOBIN 9.2 GM/dL (11.7-16.9); LYMPH % 5.5 % (8-40); MCH 27.5 pg (25.7-33.7); MCHC 33.2 g/dl (32.0-35.9); MEAN CELL VOLUME 83.1 fl (80-96); MEAN PLT VOLUME 8.6 fl (7.5-11.1); MONO % 11.7 % (3.8-10.2); NEUT % 82.3 % (42.8-82.8); PLATELET COUNT 116 K/MM3 (134-434); RBC 3.34 M/mm3 (4.00-5.60); RDW 20.3 % (11.9-15.9); WHITE BLOOD COUNT 13.6 K/mm3 (4.0-10.0)
[2021-01-18 06:16] LABS: CHLORIDE 93 mmol/L (98-107); SODIUM 128 mmol/L (136-145)
[2021-01-18 06:19] LABS: CALCIUM 7.5 mg/dL (8.5-10.1)
[2021-01-18 06:20] LABS: ALBUMIN 2.2 g/dl (3.4-5.0); ANION GAP 16 MMOL/L (8-16); CO2 19 mmol/L (21-32); GLUCOSE,RANDOM 143 mg/dL (74-106); MAGNESIUM 2.9 mg/dL (1.8-2.4)
[2021-01-18 06:23] LABS: SGOT/AST 41 U/L (15-37); SGPT/ALT 49 U/L (13-61)
[2021-01-18 06:24] LABS: BILIRUBIN,TOTAL 1.2 mg/dL (0.2-1); TOT PROT 6.4 g/dl (6.4-8.2)
[2021-01-18 06:26] LABS: ALK PHOS 160 U/L (45-117)
[2021-01-18 06:49] LABS: BLOOD UREA NITROGEN 120.1 mg/dL (7-18); CREATININE 8.1 mg/dL (0.55-1.3); PHOSPHOROUS > 9.0 mg/dL (2.5-4.9)
[2021-01-18 09:38] LABS: ANISOCYTOSIS 0; MACROCYTOSIS 0; PLATELET ESTIMATE DECREASED
[2021-01-18] MEDS ORDERED: PT OWN MED DRAWER 7, Y5N ONE (09:57)
[2021-01-18] MEDS: CALCIUM ACETATE 667 MG CAPSULE (FP) PO SCH ×3 (10:06→19:03)
[2021-01-18] MEDS: AMINO ACIDS/PROTEIN HYDROLYS 30 ML LIQUID.PKT PO SCH (10:06)
[2021-01-18] MEDS: SODIUM ZIRCONIUM CYCLOSILICATE (LOKELMA) 5 GM PACKET PO SCH (10:06)
[2021-01-18] MEDS: POLYETHYLENE GLYCOL 3350 119 GM BTL PO SCH ×2 (10:07→21:31)
[2021-01-18] MEDS: PANTOPRAZOLE SODIUM 40 MG VIAL IVPUSH SCH (10:07)
[2021-01-18] MEDS: DOBUTAMINE 250 MG/D5W - 250,000 MCG/250 ML INFUS.BAG IV SCH (13:46)
[2021-01-18] MEDS: FUROSEMIDE INJECTION 100 MG in DEXTROSE 5%-WATER - 40 ML IVPB SCH (13:48)
[2021-01-18] MEDS: CHLORHEXIDINE GLUCONATE 4% CLEANSER FOR DECOLONIZATION TP SCH (21:31)
[2021-01-19] MEDS ORDERED: PT OWN MED DRAWER 7, Y5N ONE (08:07)
[2021-01-19] MEDS: AMINO ACIDS/PROTEIN HYDROLYS 30 ML LIQUID.PKT PO SCH (08:41)
[2021-01-19] MEDS: CALCIUM ACETATE 667 MG CAPSULE (FP) PO SCH ×3 (08:41→17:55)
[2021-01-19] MEDS: PANTOPRAZOLE SODIUM 40 MG VIAL IVPUSH SCH (09:19)
[2021-01-19] MEDS: POLYETHYLENE GLYCOL 3350 119 GM BTL PO SCH ×2 (09:19→21:26)
[2021-01-19] MEDS: SODIUM ZIRCONIUM CYCLOSILICATE (LOKELMA) 5 GM PACKET PO SCH (09:19)
[2021-01-19] MEDS: NOREPINEPHRINE NS PREMIX 8,000 MCG/500 ML BAG IVPB SCH ×2 (12:00→21:56)
[2021-01-19] MEDS: PROPOFOL 1,000,000 MCG/100 ML VIAL IVPB SCH ×2 (12:09→21:57)
[2021-01-19] MEDS: FUROSEMIDE INJECTION 100 MG in DEXTROSE 5%-WATER - 40 ML IVPB SCH (19:23)
[2021-01-19] MEDS: DOBUTAMINE 250 MG/D5W - 250,000 MCG/250 ML INFUS.BAG IV SCH (19:23)
[2021-01-19] MEDS: CHLORHEXIDINE GLUCONATE 4% CLEANSER FOR DECOLONIZATION TP SCH (21:25)
[2021-01-20] MEDS: DOBUTAMINE 250 MG/D5W - 250,000 MCG/250 ML INFUS.BAG IV SCH ×2 (01:00→12:22)
[2021-01-20] MEDS: VASOPRESSIN 40 UNITS in SODIUM CHLORIDE 98 ML IVPB SCH (01:07)
[2021-01-20] MEDS ORDERED: NOREPINEPHRINE BITARTRATE 4 MG/4 ML ML IV ONE ×2 (02:01→08:31)
[2021-01-20] MEDS: PROPOFOL 1,000,000 MCG/100 ML VIAL IVPB SCH ×2 (03:30→12:22)
[2021-01-20 06:07] LABS: ARTERIAL BLOOD GAS pH 7.155 (7.350-7.450)
[2021-01-20 06:08] LABS: ALLENS TEST POSITIVE; VENT MODE A/C; VENT RATE 25
[2021-01-20 07:00] LABS: BASO % 0.1 % (0-2.0); EOS % 0.2 % (0-4.5); HEMOGLOBIN 7.9 GM/dL (11.7-16.9); LYMPH % 2.1 % (8-40); MCH 27.1 pg (25.7-33.7); MCHC 32.8 g/dl (32.0-35.9); MEAN CELL VOLUME 82.7 fl (80-96); MEAN PLT VOLUME 8.5 fl (7.5-11.1); MONO % 5.5 % (3.8-10.2); NEUT % 92.1 % (42.8-82.8); PLATELET COUNT 153 K/MM3 (134-434); RDW 20.3 % (11.9-15.9); WHITE BLOOD COUNT 19.7 K/mm3 (4.0-10.0)
[2021-01-20 07:15] LABS: CHLORIDE 91 mmol/L (98-107); SODIUM 125 mmol/L (136-145)
[2021-01-20 07:24] LABS: SGOT/AST 51 U/L (15-37); SGPT/ALT 44 U/L (13-61)
[2021-01-20 07:26] LABS: BILIRUBIN,TOTAL 1.2 mg/dL (0.2-1); TOT PROT 6.3 g/dl (6.4-8.2)
[2021-01-20 07:27] LABS: ALK PHOS 185 U/L (45-117)
[2021-01-20 07:35] LABS: ANION GAP 17 MMOL/L (8-16); CO2 17 mmol/L (21-32); GLUCOSE,RANDOM 168 mg/dL (74-106); MAGNESIUM 2.7 mg/dL (1.8-2.4)
[2021-01-20 07:37] LABS: BLOOD UREA NITROGEN 140.1 mg/dL (7-18); CREATININE 8.6 mg/dL (0.55-1.3)
[2021-01-20 08:44] LABS: CALCIUM 8.7 mg/dL (8.5-10.1); PHOSPHOROUS 9.5 mg/dL (2.5-4.9)
[2021-01-20] MEDS: SODIUM ZIRCONIUM CYCLOSILICATE (LOKELMA) 5 GM PACKET PO SCH (09:41)
[2021-01-20] MEDS: NOREPINEPHRINE NS PREMIX 8,000 MCG/500 ML BAG IVPB SCH (09:42)
[2021-01-20] MEDS: POLYETHYLENE GLYCOL 3350 119 GM BTL PO SCH ×2 (09:42→21:52)
[2021-01-20] MEDS: AMINO ACIDS/PROTEIN HYDROLYS 30 ML LIQUID.PKT PO SCH (09:42)
[2021-01-20] MEDS: CALCIUM ACETATE 667 MG CAPSULE (FP) PO SCH ×3 (09:42→16:44)
[2021-01-20] MEDS: PANTOPRAZOLE SODIUM 40 MG VIAL IVPUSH SCH (09:42)
[2021-01-20] MEDS ORDERED: DOBUTAMINE 250 MG/D5W - 250,000 MCG/250 ML INFUS.BAG ONE ×2 (11:07→17:58)
[2021-01-20 11:26] LABS: ANISOCYTOSIS 2+; MACROCYTOSIS 2+; PLATELET ESTIMATE DECREASED; TARGET CELLS 1+
[2021-01-20] MEDS ORDERED: PT OWN MED DRAWER 7, Y5N ONE (15:22)
[2021-01-20] MEDS: FUROSEMIDE INJECTION 100 MG in DEXTROSE 5%-WATER - 40 ML IVPB SCH (16:44)
[2021-01-20] MEDS ORDERED: NOREPINEPHRINE BITARTRATE 8,000 MCG/500 ML BAG IVPB ONE (20:24)
[2021-01-20] MEDS: CHLORHEXIDINE GLUCONATE 4% CLEANSER FOR DECOLONIZATION TP SCH (21:36)
[2021-01-21] MEDS: FUROSEMIDE INJECTION 100 MG in DEXTROSE 5%-WATER - 40 ML IVPB SCH ×4 (05:07→21:06)
[2021-01-21] MEDS: PROPOFOL 1,000,000 MCG/100 ML VIAL IVPB SCH ×3 (05:07→21:05)
[2021-01-21] MEDS: VASOPRESSIN 40 UNITS in SODIUM CHLORIDE 98 ML IVPB SCH ×4 (05:08→21:06)
[2021-01-21] MEDS: DOBUTAMINE 250 MG/D5W - 250,000 MCG/250 ML INFUS.BAG IV SCH ×5 (05:08→21:06)
[2021-01-21] MEDS: NOREPINEPHRINE NS PREMIX 8,000 MCG/500 ML BAG IVPB SCH ×4 (05:08→21:05)
[2021-01-21 06:13] LABS: ARTERIAL BLD GAS O2 SATURATION 99.2 mmHg (95-98); ARTERIAL BLOOD GAS BASE EXCESS -14.8 mmol/L (-2-2); ARTERIAL BLOOD GAS PO2 230.8 mmHg (80-100)
[2021-01-21 06:42] LABS: ALLENS TEST POSITIVE
[2021-01-21 06:43] LABS: VENT MODE A/C; VENT RATE 25
[2021-01-21 07:04] LABS: ARTERIAL BLOOD GAS pH 7.126 (7.350-7.450)
[2021-01-21 07:45] LABS: BASO % 0.3 % (0-2.0); EOS % 0.1 % (0-4.5); HEMATOCRIT 19.6 % (35.4-49); LYMPH % 1.8 % (8-40); MCH 27.4 pg (25.7-33.7); MCHC 32.9 g/dl (32.0-35.9); MEAN CELL VOLUME 83.1 fl (80-96); MEAN PLT VOLUME 8.6 fl (7.5-11.1); MONO % 5.4 % (3.8-10.2); NEUT % 92.4 % (42.8-82.8); PLATELET COUNT 176 K/MM3 (134-434); RBC 2.35 M/mm3 (4.00-5.60); RDW 20.5 % (11.9-15.9); WHITE BLOOD COUNT 21.2 K/mm3 (4.0-10.0)
[2021-01-21] MEDS ORDERED: PT OWN MED DRAWER 7, Y5N ONE ×2 (07:49→11:14)
[2021-01-21 08:16] LABS: CHLORIDE 90 mmol/L (98-107); SODIUM 124 mmol/L (136-145)
[2021-01-21 08:48] LABS: HEMOGLOBIN 6.4 GM/dL (11.7-16.9)
[2021-01-21 08:53] LABS: ANION GAP 19 MMOL/L (8-16); CO2 15 mmol/L (21-32)
[2021-01-21] MEDS ORDERED: DOBUTAMINE 250 MG/D5W - 250,000 MCG/250 ML INFUS.BAG ONE (08:53)
[2021-01-21 08:54] LABS: GLUCOSE,RANDOM 156 mg/dL (74-106); MAGNESIUM 2.6 mg/dL (1.8-2.4)
[2021-01-21 08:56] LABS: SGOT/AST 46 U/L (15-37); SGPT/ALT 41 U/L (13-61)
[2021-01-21 08:58] LABS: BILIRUBIN,TOTAL 1.2 mg/dL (0.2-1)
[2021-01-21 08:59] LABS: ALK PHOS 187 U/L (45-117)
[2021-01-21 09:01] LABS: BLOOD UREA NITROGEN 147.4 mg/dL (7-18); CREATININE 8.5 mg/dL (0.55-1.3)
[2021-01-21] MEDS: PANTOPRAZOLE SODIUM 40 MG VIAL IVPUSH SCH (09:31)
[2021-01-21] MEDS: SODIUM ZIRCONIUM CYCLOSILICATE (LOKELMA) 5 GM PACKET PO SCH (09:31)
[2021-01-21] MEDS: CALCIUM ACETATE 667 MG CAPSULE (FP) PO SCH ×3 (09:31→16:56)
[2021-01-21] MEDS: AMINO ACIDS/PROTEIN HYDROLYS 30 ML LIQUID.PKT PO SCH (09:31)
[2021-01-21] MEDS: POLYETHYLENE GLYCOL 3350 119 GM BTL PO SCH ×2 (09:32→21:06)
[2021-01-21 09:36] LABS: CALCIUM 6.9 mg/dL (8.5-10.1); PHOSPHOROUS > 9.0 mg/dL (2.5-4.9)
[2021-01-21 10:37] LABS: ANISOCYTOSIS 2+; MACROCYTOSIS 1+; PLATELET ESTIMATE NORMAL
[2021-01-21] MEDS: CHLORHEXIDINE GLUCONATE 4% CLEANSER FOR DECOLONIZATION TP SCH (21:06)
[2021-01-21 23:35] LABS: HEMATOCRIT 20.6 % (35.4-49); MCH 27.5 pg (25.7-33.7); MCHC 32.7 g/dl (32.0-35.9); MEAN CELL VOLUME 83.9 fl (80-96); MEAN PLT VOLUME 8.6 fl (7.5-11.1); PLATELET COUNT 196 K/MM3 (134-434); RBC 2.46 M/mm3 (4.00-5.60); RDW 19.1 % (11.9-15.9); WHITE BLOOD COUNT 21.3 K/mm3 (4.0-10.0)
[2021-01-21 23:38] LABS: HEMOGLOBIN 6.8 GM/dL (11.7-16.9)
[2021-01-22] MEDS: VASOPRESSIN 40 UNITS in SODIUM CHLORIDE 98 ML IVPB SCH
[2021-01-22 00:52] LABS: INR 1.07 (0.83-1.09); PROTHROMBIN TIME (PATIENT) 12.9 SEC (9.7-13.0)
[2021-01-22 00:55] LABS: ACTIVATED PTT 30.3 SECONDS (25.2-36.5)
[2021-01-22] MEDS ORDERED: NOREPINEPHRINE D5W PREMIX 16,000 MCG/500 ML BAG IVPB ONE (02:50)
[2021-01-22] MEDS: NOREPINEPHRINE NS PREMIX 16,000 MCG/500 ML BAG IVPB SCH (05:00)
[2021-01-22 06:34] LABS: ARTERIAL BLOOD GAS PO2 151.5 mmHg (80-100)
[2021-01-22 06:53] LABS: ALLENS TEST POSITIVE; VENT MODE A/C; VENT RATE 25
[2021-01-22 06:54] LABS: BASO % 0.2 % (0-2.0); EOS % 0.2 % (0-4.5); HEMATOCRIT 22.8 % (35.4-49); HEMOGLOBIN 7.6 GM/dL (11.7-16.9); LYMPH % 2.5 % (8-40); MCHC 33.5 g/dl (32.0-35.9); MEAN CELL VOLUME 83.6 fl (80-96); MEAN PLT VOLUME 8.5 fl (7.5-11.1); MONO % 8.9 % (3.8-10.2); NEUT % 88.2 % (42.8-82.8); PLATELET COUNT 216 K/MM3 (134-434); RBC 2.73 M/mm3 (4.00-5.60); RDW 18.8 % (11.9-15.9); WHITE BLOOD COUNT 22.6 K/mm3 (4.0-10.0)
[2021-01-22 06:55] LABS: ARTERIAL BLOOD GAS pH 7.057 (7.350-7.450)
[2021-01-22 07:12] LABS: CHLORIDE 89 mmol/L (98-107); SODIUM 123 mmol/L (136-145)
[2021-01-22 07:18] LABS: ANION GAP 19 MMOL/L (8-16); CO2 15 mmol/L (21-32); GLUCOSE,RANDOM 179 mg/dL (74-106); MAGNESIUM 2.6 mg/dL (1.8-2.4)
[2021-01-22 07:21] LABS: SGOT/AST 57 U/L (15-37); SGPT/ALT 46 U/L (13-61)
[2021-01-22 07:23] LABS: BILIRUBIN,TOTAL 1.3 mg/dL (0.2-1); TOT PROT 6.1 g/dl (6.4-8.2)
[2021-01-22 07:24] LABS: ALK PHOS 212 U/L (45-117)
[2021-01-22 07:35] LABS: BLOOD UREA NITROGEN 140.2 mg/dL (7-18); CALCIUM 6.9 mg/dL (8.5-10.1); CREATININE 8.4 mg/dL (0.55-1.3)
[2021-01-22 07:49] LABS: PHOSPHOROUS 10.5 mg/dL (2.5-4.9)
[2021-01-22] MEDS: AMINO ACIDS/PROTEIN HYDROLYS 30 ML LIQUID.PKT PO SCH (08:08)
[2021-01-22] MEDS: CALCIUM ACETATE 667 MG CAPSULE (FP) PO SCH ×3 (09:08→18:44)
[2021-01-22] MEDS: SODIUM ZIRCONIUM CYCLOSILICATE (LOKELMA) 5 GM PACKET PO SCH (10:08)
[2021-01-22] MEDS: PANTOPRAZOLE SODIUM 40 MG VIAL IVPUSH SCH (10:08)
[2021-01-22] MEDS: DOBUTAMINE 250 MG/D5W - 250,000 MCG/250 ML INFUS.BAG IV SCH (11:08)
[2021-01-22] MEDS: POLYETHYLENE GLYCOL 3350 119 GM BTL PO SCH ×2 (11:08→21:05)
[2021-01-22 11:41] LABS: ANISOCYTOSIS 1+; MACROCYTOSIS 0; OVALOCYTE 1+; PLATELET ESTIMATE NORMAL; TARGET CELLS 1+; TEAR DROP CELLS 1+
[2021-01-22] MEDS: HEPARIN NA (PORCINE) 5,000 UNITS/ML 1ML VIAL SQ SCH ×2 (14:00→21:05)
[2021-01-22] MEDS ORDERED: VASOPRESSIN 20 UNITS/ML VIAL IV ONE (15:38)
[2021-01-22] MEDS: FUROSEMIDE INJECTION 100 MG in DEXTROSE 5%-WATER - 40 ML IVPB SCH (18:44)
[2021-01-22] MEDS: CHLORHEXIDINE GLUCONATE 4% CLEANSER FOR DECOLONIZATION TP SCH (21:05)
[2021-01-23] MEDS: HEPARIN NA (PORCINE) 5,000 UNITS/ML 1ML VIAL SQ SCH (06:01)
[2021-01-23] MEDS: CALCIUM ACETATE 667 MG CAPSULE (FP) PO SCH ×2 (08:04→12:03)
[2021-01-23] MEDS: AMINO ACIDS/PROTEIN HYDROLYS 30 ML LIQUID.PKT PO SCH (08:05)
[2021-01-23] MEDS: NOREPINEPHRINE NS PREMIX 16,000 MCG/500 ML BAG IVPB SCH (08:35)
[2021-01-23] MEDS: DOBUTAMINE 250 MG/D5W - 250,000 MCG/250 ML INFUS.BAG IV SCH ×2 (09:05→10:58)
[2021-01-23] MEDS ORDERED: MORPHINE SULFATE/0.9% NACL/PF 100 MG/100 ML BAG IVPB SCH (09:30)
[2021-01-23] MEDS: PANTOPRAZOLE SODIUM 40 MG VIAL IVPUSH SCH (10:48)
[2021-01-23] MEDS: POLYETHYLENE GLYCOL 3350 119 GM BTL PO SCH (11:00)
[2021-01-23] MEDS: SODIUM ZIRCONIUM CYCLOSILICATE (LOKELMA) 5 GM PACKET PO SCH (11:40)
[2021-01-23 13:10] VITALS: BP 56/32
[2021-01-23 17:41] VITALS: PULSE 60; TEMP 96.2
== END 2021-01-23 16:08 | disposition expired | DRG 870 ==
LOC: JER 15:47 → JERBED 16:50 → JICU 01-09 02:24
PROVIDERS: ADMIT Internal Medicine Pulmonary Disease; ATTEND Internal Medicine Pulmonary Disease
PROC: 5A1955Z Respiratory Ventilation, Greater than 96 Consecutive Hours (ICD-10-PCS; 2021-01-08)
PROC: 0BH17EZ Insertion of Endotracheal Airway into Trachea, Via Natural or Artificial Opening (ICD-10-PCS; 2021-01-08)
PROC: 05H333Z Insertion of Infusion Device into Right Innominate Vein, Percutaneous Approach (ICD-10-PCS; 2021-01-08)
PROC: 05HM33Z Insertion of Infusion Device into Right Internal Jugular Vein, Percutaneous Approach (ICD-10-PCS; principal; 2021-01-09)
PROC: B543ZZA Ultrasonography of Right Jugular Veins, Guidance (ICD-10-PCS; 2021-01-09)
PROC: 0DH67UZ Insertion of Feeding Device into Stomach, Via Natural or Artificial Opening (ICD-10-PCS; 2021-01-11)
PROC: 3E0G76Z Introduction of Nutritional Substance into Upper GI, Via Natural or Artificial Opening (ICD-10-PCS; 2021-01-11)
PROC: 30233N1 Transfusion of Nonautologous Red Blood Cells into Peripheral Vein, Percutaneous Approach (ICD-10-PCS; 2021-01-21)
DX: A41.89 Other specified sepsis (principal); J18.9 Pneumonia, unspecified organism; R65.21 Severe sepsis with septic shock; J96.01 Acute respiratory failure with hypoxia; N17.9 Acute kidney failure, unspecified; E87.2 Acidosis; E87.1 Hypo-osmolality and hyponatremia; I24.8 Other forms of acute ischemic heart disease; I50.42 Chronic combined systolic (congestive) and diastolic (congestive) heart failure; I48.92 Unspecified atrial flutter; I13.0 Hypertensive heart and chronic kidney disease with heart failure and stage 1 through stage 4 chronic kidney disease, or unspecified chronic kidney disease; I95.89 Other hypotension; N18.9 Chronic kidney disease, unspecified; R94.5 Abnormal results of liver function studies; I25.10 Atherosclerotic heart disease of native coronary artery without angina pectoris; J44.9 Chronic obstructive pulmonary disease, unspecified; I48.91 Unspecified atrial fibrillation; E78.5 Hyperlipidemia, unspecified; I27.20 Pulmonary hypertension, unspecified; D69.6 Thrombocytopenia, unspecified; M10.9 Gout, unspecified; K21.9 Gastro-esophageal reflux disease without esophagitis; I46.9 Cardiac arrest, cause unspecified; D64.9 Anemia, unspecified; F17.210 Nicotine dependence, cigarettes, uncomplicated; R74.01 Elevation of levels of liver transaminase levels; E87.5 Hyperkalemia; K76.0 Fatty (change of) liver, not elsewhere classified; Z95.1 Presence of aortocoronary bypass graft; Z95.2 Presence of prosthetic heart valve; Z86.73 Personal history of transient ischemic attack (TIA), and cerebral infarction without residual deficits; Z95.5 Presence of coronary angioplasty implant and graft; Z66 Do not resuscitate
CPT/HCPCS: 36415; 36430; 36600; 71045-TC-FY; 74018-TC-FY; 80048; 80053; 81003; 82272; 82803; 83605; 83735; 83880; 84100; 84484; 85025; 85027; 85610; 85730; 86850; 86900; 86901; 86922; 87040; 87070; 87077; 87086; 87205; 87899; 93005; 93010; 93306-TC; 93970-TC; 94002; 99291; C9803; G0480; J1250; J1644; P9058; U0003; U0005